=== PATIENT | female | born 1990 | race Caucasian/White ===

== ENCOUNTER 2023-01-15 12:47 | Outpatient (OUT) | payer MEDICAID, SELFPAY ==
--- NOTE | 2023-01-15 16:11 | MISC_ITS ---
CONSULTATION DATE: ??01/15/2023 HISTORY:? Patient comes in complaining of 4-5/10 pain in her neck area occurring bilaterally.? She describes this as a deep aching pain with a sharp component, increased with activity such as cervical extension.? She reports the pain radiates to her right shoulder at times.? Denies any change in bowel and bladder habits or new sensorimotor change in the upper extremities.? She also reports pain increases with lifting maneuvers, pushing/pulling maneuvers.? She feels most comfortable in the semi-recumbent position.? EXAMINATION:? Notable for patient having no clinical radiculopathy or myelopathy involving her upper extremities.? Patient did have significant pain with cervical facet loading maneuvers occurring bilaterally, worse on the right than the left side, at approximately C4-5, C5-6.? She had associated myofascial spasm of the splenius capitis muscle.? The spasm is markedly worse on the right than the left side.? She does have improvement on the left side, compared to the last visit. IMPRESSION:? Our impression is patient appears to have chronic pain secondary to cervical spondylosis with facet loading pain clinically, involving the C4-5 and C5-6 levels, occurring bilateral, worse on the right than the left side, and myofascial spasm of the cervical paravertebral muscles, namely the splenius capitis.? RECOMMENDATIONS:? I have recommended she increase the baclofen 10 mg pills, 1-2 pills b.i.d. as tolerated.? Physical therapy to address her myofascial spasm.? I have refilled the [place] #7 pills to last until her next visit, which will be in about two weeks? time.? It is not for daily use.? As part of providing excellent, safe, comprehensive care, the following was completed at our patient's visit: 1. A medication reconciliation and review to ensure accurate knowledge of current/active medications, including asking our patients to inform us about any efce-myf-mequadu medications or herbal remedies/nutritional supplements/alternative remedies. 2. A review to specifically ensure our patients have had annual screening for: elevated body mass index (BMI, see intake chart for exact total), tobacco use, screening for depression, and screening for unhealthy alcohol use.? When screening is concerning, patients are provided with education and the specific recommendation to discuss the concerning health issue and treatment options with their primary care provider. RIKA
== END 2023-01-15 12:48 ==
PROVIDERS: PCP Internal Medicine; Visit Provider Anesthesiology Pain Medicine
DX: M54.50 Low back pain, unspecified (principal); G89.29 Other chronic pain; M47.817 Spondylosis without myelopathy or radiculopathy, lumbosacral region; M62.838 Other muscle spasm
CPT/HCPCS: G0463

== ENCOUNTER 2023-01-21 15:45 | Outpatient (RCR) | payer MEDICAID, SELFPAY | END 2023-02-05 12:36 | disposition home or self-care (01) | LOC: PT 15:45 | PROVIDERS: PCP Internal Medicine; Visit Provider Anesthesiology Pain Medicine | DX: M54.2 Cervicalgia (principal); M62.838 Other muscle spasm | CPT/HCPCS: 97012; 97110; 97140; 97162 ==

== ENCOUNTER 2023-01-31 14:24 | Outpatient (OUT) | payer MEDICAID, SELFPAY ==
--- NOTE | 2023-01-31 16:14 | CONS_ITS ---
CONSULTATION DATE: ??01/31/2023 TO:? Stoney Giles M.D. CHIEF COMPLAINT:? Includes persistent neck pain on the right side, right shoulder pain. HISTORY:? She returns today complaining of 6/10 pain, sharp on the right side of her neck and shoulder area, primarily in her neck area; increased with activities such as stretching and lifting maneuvers, pushing/pulling maneuvers, cervical flexion/extension.? She feels most comfortable in the semi-recumbent position.? She denies any change in bowel and bladder habits or new sensorimotor changes in the upper extremities. EXAM:? Notable for patient having mild hypoesthesia along the right C5 dermatome along with the right deltoid.? No appreciable Spurling?s sign was noted.? IMPRESSION:? Our impression is patient appears to have chronic pain secondary to cervical neuritis along the right C5 level, with associated myofascial dysfunction of the cervical paravertebral muscles. RECOMMENDATIONS:? I have recommended she undergo a cervical MRI without contrast.? I have refilled her medications including [place] 5 mg pills to be taken one-half pill to one pill daily p.r.n.? I have given her 30 pills to last a month?s time.? I will see the patient back in the office in four weeks? time after she undergoes the imaging study. As part of providing excellent, safe, comprehensive care, the following was completed at our patient's visit: 1. A medication reconciliation and review to ensure accurate knowledge of current/active medications, including asking our patients to inform us about any bwol-zgh-nrqbjid medications or herbal remedies/nutritional supplements/alternative remedies. 2. A review to specifically ensure our patients have had annual screening for: elevated body mass index (BMI, see intake chart for exact total), tobacco use, screening for depression, and screening for unhealthy alcohol use.? When screening is concerning, patients are provided with education and the specific recommendation to discuss the concerning health issue and treatment options with their primary care provider.:? RIKA
== END 2023-01-31 14:25 | disposition home or self-care (01) ==
LOC: PM 14:24
PROVIDERS: PCP Internal Medicine; Visit Provider Anesthesiology Pain Medicine
DX: G89.29 Other chronic pain (principal); M54.12 Radiculopathy, cervical region
CPT/HCPCS: G0463

== ENCOUNTER 2023-02-14 12:24 | Outpatient (OUT) | payer MEDICAID, SELFPAY ==
[2023-02-14 13:03] LABS: Basophils Absolute Auto 0.1 10^3/uL (0.0-0.1); Basophils Percent Auto 1.2 % (0.2-2.0); Eosinophils Absolute Auto 0.1 10^3/uL (0.0-0.7); Eosinophils Percent Auto 1.6 % (0.9-7.0); Hematocrit 37.3 % (36.0-48.0); Immature Granulocytes Abs Auto 0.02 10^3/uL (0.00-0.03); Immature Granulocytes Pct Auto 0.5 % (0.0-0.5); Lymphocytes Absolute Auto 1.6 10^3/uL (1.2-3.8); Lymphocytes Percent Auto 36.8 % (20.5-60.0); Mean Corpuscular HGB Conc 34.9 g/dL (29.9-35.2); Mean Corpuscular Volume 88.8 fL (81.0-99.0); Mean Platelet Volume 11.5 fL (9.5-13.5); Monocytes Absolute Auto 0.4 10^3/uL (0.3-0.8); Monocytes Percent Auto 8.8 % (1.7-12.0); Neutrophils Absolute Auto 2.2 10^3/uL (1.4-6.5); Neutrophils Percent Auto 51.1 % (43.0-75.0); Platelet Count 182 10^3/uL (150-450); White Blood Count 4.3 10^3/uL (4.0-11.0)
[2023-02-14 13:40] LABS: Erythrocyte Sedimentation Rate <1 mm/hr (<=20)
[2023-02-14 13:50] LABS: Alanine Aminotransferase 22 U/L (14-59); Albumin Globulin Ratio 1.6; Albumin Level 4.1 g/dL (3.4-5.0); Alkaline Phosphatase 51 U/L (46-116); Anion Gap 10.3; Aspartate Amino Transferase 15 U/L (15-37); BUN Creatinine Ratio 15.6; Bilirubin Total 0.5 mg/dL (0.2-1.0); Calcium 8.5 mg/dL (8.5-10.1); Carbon Dioxide 27.5 mmol/L (21.0-32.0); Chloride 107 mmol/L (98-107); Estimated GFR (African America >60 (>=60); Estimated GFR (Non-African Ame >60 (>=60); Globulin 2.5 g/dL; Glucose 72 mg/dL (74-106); Potassium 3.8 mmol/L (3.5-5.1); Sodium 141 mmol/L (136-145); Total Protein 6.6 g/dL (6.4-8.2)
[2023-02-14 13:51] LABS: C Reactive Protein <0.2 mg/dL (<=1.0)
== END 2023-02-14 12:25 | disposition home or self-care (01) ==
LOC: LAB 12:25
PROVIDERS: PCP Internal Medicine; Visit Provider Internal Medicine
DX: K50.90 Crohn's disease, unspecified, without complications (principal)
CPT/HCPCS: 36415; 80053; 85025; 85652; 86140

== ENCOUNTER 2023-02-14 21:22 | Emergency (ER) | payer MEDICAID, SELFPAY ==
[2023-02-14 21:28] VITALS: BP 120/82; PULSE 68; RESP 16; TEMP 36.9; O2SAT 98; BMI 23.8
--- NOTE | 2023-02-14 21:39 | CT_ITS ---
[address] [address] Patient Name: PAT LICONA MRN: [id number] date: 1990 Sex: F Assigned Patient Location: ER Current Patient Location: ER Accession/Order Number: [id number] Exam Date: 02/14/2023 22:29 Report Date: 02/14/2023 23:00 At the request of: NEDRA BONILLA Procedure: CT cervical spine wo con CT cervical spine wo con INDICATION: 32 years old; Female . CLINICAL HISTORY: pain neck pain for 1.5 weeks. No history of injury. Right arm paresthesia. History of previous neck issues . TECHNIQUE: CT imaging of the cervical spine was performed. IV contrast: None. Dose reduction techniques were achieved by using automated exposure control and/or adjustment of mA and/or kV according to patient size and/or use of iterative reconstruction technique. COMPARISON: Cervical MRI dated 04/05/2022. Cervical x-ray dated 02/08/2022. FINDINGS: POSTOPERATIVE CHANGES: None. ALIGNMENT: There is nonspecific straightening and mild reversal the normal cervical curve. Mild torticollis is noted concave to the left. COMPRESSION FRACTURES: No fracture or vertebral body collapse is seen. No bone displacement is seen. No asymmetric widening of the facets is seen. PREVERTEBRAL SOFT TISSUES: Normal. CRANIOCERVICAL JUNCTION: There is a normal relationship of the occipital condyles, lateral masses of C1, and articular surfaces of C2. The base of the dens and body of C2 are intact. POSTERIOR FOSSA: Cerebellar tonsils are positioned at the level the foramen magnum. This was previously described. Disc levels: C2-C3: No disc herniation. No spinal canal or foraminal narrowing. C3-C4: No disc herniation. No spinal canal or foraminal narrowing. C4-C5: Anterior osteophyte formation. No focal disc herniation or bulging. Central canal and neural foramina patent. C5-C6: Disc space narrowing, disc bulging, endplate osteophyte formation, and uncovertebral joint degeneration. Bulky bridging anterior osteophytes. Mild central canal stenosis. Neural foramina patent. C6-C7: Disc space narrowing, disc bulging, endplate osteophyte formation, with endplate sclerosis and bulky bridging anterior osteophytes. Central canal is patent. Neural foramina patent. No focal disc herniation. C7-T1: No disc herniation. No spinal canal or foraminal narrowing. UPPER THORACIC SPINE: No disc herniation. No spinal canal or foraminal narrowing. OTHER: There is inhomogeneous appearance of the thyroid gland with tiny areas of low-density. Recommend nonemergent thyroid ultrasound. IMPRESSION: 1. No acute abnormality. No fracture or vertebral body collapse. No focal disc herniation. 2. Cervical spondylosis worse at C5-C6 and C6-C7 which appears stable as compared to the prior study. 3. Inhomogeneous appearance of the thyroid gland. Consider nonemergent thyroid ultrasound. Electronically authenticated by: DENIS WINTERS Date: 02/14/2023 23:00
--- NOTE | 2023-02-14 21:40 | ED.GENADUL1 ---
Documented by User: Heaven Rigoberto 02/15/23 13:25 HPI - General Adult General Chief complaint: Neck Pain/Injury Stated complaint: NECK PAIN Time Seen by Provider: 02/14/23 21:33 Source: patient Mode of arrival: walk-in Limitations: no limitations History of Present Illness HPI narrative: There is 32-year-old female presents her chief complaint of exacerbation of chronic neck pain. She states she's been in physical therapy as well as pain management with injections. Patient states she has trying to get a perforated MRI. She is here for pain with no new injury or trauma. He has baclofen at home which did not take it todayAnd patient shows no signs of nuchal rigidity. She has full range of motion. Related Data Home Medications Medication Instructions Recorded Confirmed Lactobacillus acidoph-L.bulgaricus 1 tab PO DAILY 02/14/23 02/14/23 1 million cell tablet baclofen 10 mg tablet 10 mg PO Q12H 02/14/23 02/14/23 cholecalciferol (vitamin D3) 25 2,000 unit PO BID 02/14/23 02/14/23 mcg (1,000 unit) tablet hydrocodone 5 mg-acetaminophen 325 1 tab PO .daily. 02/14/23 02/14/23 mg tablet hyoscyamine sulfate 0.125 mg tablet 0.125 mg PO Q6H PRN dyspepsia 02/14/23 02/14/23 melatonin 10 mg capsule 10 mg PO DAILY 02/14/23 02/14/23 multivitamin with folic acid 400 1 tab PO DAILY 02/14/23 02/14/23 mcg tablet (Daily-Sharad (with folic acid)) omega 2-gtr-rbt-fish oil 300 1 cap PO DAILY 02/14/23 02/14/23 mg-1,000 mg capsule (Fish Oil) vitamin B complex 1 cap PO DAILY 02/14/23 02/14/23 Allergies Allergy/AdvReac Type Severity Reaction Status Date / Time latex AdvReac Rash Uncoded 02/14/23 21:39 Review of Systems ROS Narrative All Systems are negative except as noted/marked.All systems reviewed and otherwise negative [facility] PFS Medical History (Updated 02/14/23 @ 21:46 by Selena Lea) Surgical History (Updated 02/14/23 @ 21:46 by Selena Lea) Social History Smoking status: Former smoker Exam Narrative Exam Narrative: Nurses note and vital signs reviewed and patient is not hypoxic. General: The patient appears well and in no apparent distress. Patient is resting comfortably on cart. Skin: Warm, dry, no pallor noted. There is no rash noted. Head: Normocephalic, atraumatic neck : No midline tenderness full range of motion no nuchal rigidity Eye: Normal conjunctiva, no drainage, EOMI. PERRL Ears, Nose, Mouth, and Throat: oral mucosa is moist. Nares patent. Mouth without vesicles. Ear canals patent. Tm's without Erythema Cardiovascular: Regular Rate and Rhythm Musculoskeletal: The patient has no evidence of calf tenderness, no pitting edema, symmetrical pulses noted bilaterally Neurological: A&O x4, normal speech Psychiatric: Cooperative Constitutional Vital Signs - 24 hr 02/14/23 21:28 02/14/23 23:22 Temperature 98.4 F Pulse Rate [Monitor] 68 56 L Respiratory Rate 16 16 Blood Pressure [Right Arm] 120/82 H 111/81 H Pulse Oximetry 98 100 Oxygen Delivery Method Room Air Course Vital Signs Vital signs: Vital Signs Temperature 98.4 F 02/14/23 21:28 Pulse Rate 68 02/14/23 21:28 Respiratory Rate 16 02/14/23 21:28 Blood Pressure 120/82 H 02/14/23 21:28 Pulse Oximetry 98 02/14/23 21:28 Temperature 98.4 F 02/14/23 21:28 Pulse Rate 56 L 02/14/23 23:22 Respiratory Rate 16 02/14/23 23:22 Blood Pressure 111/81 H 02/14/23 23:22 Pulse Oximetry 100 02/14/23 23:22 Oxygen Delivery Method Room Air 02/14/23 23:22 Discharge Plan Discharge Chief Complaint: Neck Pain/Injury Clinical Impression: Strain of neck muscle Patient Disposition: Home, Self-Care Time of Disposition Decision: 23:15 Condition: Good Mode of Transportation: Private Vehicle Prescriptions / Home Meds: No Action baclofen 10 mg tablet 10 mg PO Q12H Rx Instructions: 1-2 tablets cholecalciferol (vitamin D3) 25 mcg (1,000 unit) tablet 2,000 unit PO BID hyoscyamine sulfate 0.125 mg tablet 0.125 mg PO Q6H PRN (Reason: dyspepsia) Lactobacillus acidoph-L.bulgar 1 million cell tablet 1 tab PO DAILY melatonin 10 mg capsule 10 mg PO DAILY multivitamin with folic acid [Daily-Sharad (with folic acid)] 400 mcg tablet 1 tab PO DAILY omega 9-aac-hmq-fish oil [Fish Oil] 300-1,000 mg capsule 1 cap PO DAILY vitamin B complex Capsule 1 cap PO DAILY hydrocodone-acetaminophen 5-325 mg tablet 1 tab PO .daily. Instructions: Cervical Strain (ED) Stand Alone Forms: Portal Instructions Referrals: CHIDI PARKER [Primary Care Provider] - 1 week Discharge Date/Time: 02/14/23 23:25 Documented by User: Raheem Gerardo MD 02/14/23 23:15 HPI - General Adult General Chief complaint: Neck Pain/Injury Stated complaint: NECK PAIN Time Seen by Provider: 02/14/23 21:33 Related Data Home Medications Medication Instructions Recorded Confirmed Lactobacillus acidoph-L.bulgaricus 1 tab PO DAILY 02/14/23 02/14/23 1 million cell tablet baclofen 10 mg tablet 10 mg PO Q12H 02/14/23 02/14/23 cholecalciferol (vitamin D3) 25 2,000 unit PO BID 02/14/23 02/14/23 mcg (1,000 unit) tablet hydrocodone 5 mg-acetaminophen 325 1 tab PO .daily. 02/14/23 02/14/23 mg tablet hyoscyamine sulfate 0.125 mg tablet 0.125 mg PO Q6H PRN dyspepsia 02/14/23 02/14/23 melatonin 10 mg capsule 10 mg PO DAILY 02/14/23 02/14/23 multivitamin with folic acid 400 1 tab PO DAILY 02/14/23 02/14/23 mcg tablet (Daily-Sharad (with folic acid)) omega 0-nuy-hfi-fish oil 300 1 cap PO DAILY 02/14/23 02/14/23 mg-1,000 mg capsule (Fish Oil) vitamin B complex 1 cap PO DAILY 02/14/23 02/14/23 Allergies Allergy/AdvReac Type Severity Reaction Status Date / Time latex AdvReac Rash Uncoded 02/14/23 21:39 PFSH PFSH Medical History (Updated 02/14/23 @ 21:46 by Selena Lea) Surgical History (Updated 02/14/23 @ 21:46 by Selena Lea) Social History Smoking status: Former smoker Exam Constitutional Vital Signs - 24 hr 02/14/23 21:28 02/14/23 23:22 Temperature 98.4 F Pulse Rate [Monitor] 68 56 L Respiratory Rate 16 16 Blood Pressure [Right Arm] 120/82 H 111/81 H Pulse Oximetry 98 100 Oxygen Delivery Method Room Air Course Vital Signs Vital signs: Vital Signs Temperature 98.4 F 02/14/23 21:28 Pulse Rate 68 02/14/23 21:28 Respiratory Rate 16 02/14/23 21:28 Blood Pressure 120/82 H 02/14/23 21:28 Pulse Oximetry 98 02/14/23 21:28 Temperature 98.4 F 02/14/23 21:28 Pulse Rate 56 L 02/14/23 23:22 Respiratory Rate 16 02/14/23 23:22 Blood Pressure 111/81 H 02/14/23 23:22 Pulse Oximetry 100 02/14/23 23:22 Oxygen Delivery Method Room Air 02/14/23 23:22 Medical Decision Making MDM Narrative Medical decision making narrative: patient presents with neck pain. similar neck pain in the past . Strain injury. CT ordered at change of shift and CT-Cspine without acute changes. Patient informed of the findings and discharged home to follow up with her doctor Discharge Plan Discharge Chief Complaint: Neck Pain/Injury Clinical Impression: Strain of neck muscle Patient Disposition: Home, Self-Care Time of Disposition Decision: 23:15 Condition: Good Mode of Transportation: Private Vehicle Prescriptions / Home Meds: No Action baclofen 10 mg tablet 10 mg PO Q12H Rx Instructions: 1-2 tablets cholecalciferol (vitamin D3) 25 mcg (1,000 unit) tablet 2,000 unit PO BID hyoscyamine sulfate 0.125 mg tablet 0.125 mg PO Q6H PRN (Reason: dyspepsia) Lactobacillus acidoph-L.bulgar 1 million cell tablet 1 tab PO DAILY melatonin 10 mg capsule 10 mg PO DAILY multivitamin with folic acid [Daily-Sharad (with folic acid)] 400 mcg tablet 1 tab PO DAILY omega 1-ahk-oes-fish oil [Fish Oil] 300-1,000 mg capsule 1 cap PO DAILY vitamin B complex Capsule 1 cap PO DAILY hydrocodone-acetaminophen 5-325 mg tablet 1 tab PO .daily. Instructions: Cervical Strain (ED) Stand Alone Forms: Portal Instructions Referrals: CHIDI PARKER [Primary Care Provider] - 1 week Discharge Date/Time: 02/14/23 23:25
[2023-02-14] MEDS: KETOROLAC TROMETHAMINE 60 MG/2 ML VIAL IM (22:23)
[2023-02-14 23:22] VITALS: BP 111/81; PULSE 56; RESP 16; O2SAT 100
== END 2023-02-14 23:25 | disposition home or self-care (01) ==
PROVIDERS: Emergency Provider Internal Medicine; PCP Internal Medicine
DX: S16.1XXA Strain of muscle, fascia and tendon at neck level, initial encounter (principal); X58.XXXA Exposure to other specified factors, initial encounter; Z79.899 Other long term (current) drug therapy; Z87.891 Personal history of nicotine dependence; K50.90 Crohn's disease, unspecified, without complications
CPT/HCPCS: 36415; 72125; 80053; 85025; 85652; 86140; 96372; 99284

== ENCOUNTER 2023-03-15 12:38 | Outpatient (OUT) | payer MEDICAID, SELFPAY ==
--- NOTE | 2023-03-15 12:48 | MR_ITS ---
[address] [address] Patient Name: PAT LICONA MRN: [id number] date: 1990 Sex: F Assigned Patient Location: MRI Current Patient Location: Accession/Order Number: [id number] Exam Date: 03/15/2023 13:00 Report Date: 03/16/2023 07:40 At the request of: CINTIA SEBASTIAN Procedure: MR cervical spine wo con EXAM: MRI of the cervical an thoracic spine without IV contrast. REASON FOR EXAM: Cervical Neuritis COMPARISON: CT scan dated 02/14/2023 FINDINGS: C-SPINE: No cervical spine fractures, acute malalignment or acute abnormal marrow signal. No spinal canal mass, hematoma or fluid collection. No abnormal cord signal. Mild C3-C4 posterior disc bulge. Small C4-C5 posterior disc protrusion. C5-C6 and C6-C7 posterior disc protrusion with mild associated disc space narrowing. Mild C3-C4, C4-C5 and C5-C6 spinal canal stenoses. No other substantial spinal canal stenoses. Mild right C3-C4 neural foraminal stenosis. Mild bilateral C5-C6 neural foraminal stenoses. Mild left C6-C7 neural foraminal stenosis. No other substantial neural foraminal stenoses. T-SPINE: No thoracic spine fractures, acute malalignment or acute abnormal marrow signal. No spinal canal mass, hematoma or fluid collection. No abnormal cord signal. Mild thoracic scoliosis. No other thoracic spine malalignment. Preserved intervertebral disc heights. No posterior disc protrusions. No spinal canal or neural foraminal stenoses. Remainder unremarkable. MR/MR cervical spine wo con IMPRESSION: 1. Mild C3-C4, C4-C5 and C5-C6 spinal canal stenoses. 2. Mild right C3-C4, bilateral C5-C6 and left C6-C7 neural foraminal stenoses. 3. No thoracic spinal canal or neural foraminal stenoses. 4. Mild thoracic scoliosis. Electronically authenticated by: EUGENE MEDINA Date: 03/16/2023 07:40
== END 2023-03-15 12:39 | disposition home or self-care (01) ==
LOC: MRI 12:38
PROVIDERS: PCP Internal Medicine; Visit Provider Anesthesiology Pain Medicine
DX: M54.12 Radiculopathy, cervical region (principal); M48.02 Spinal stenosis, cervical region; M99.71 Connective tissue and disc stenosis of intervertebral foramina of cervical region; M41.9 Scoliosis, unspecified
CPT/HCPCS: 72141

== ENCOUNTER 2023-03-15 12:59 | Outpatient (OUT) | payer MEDICAID, SELFPAY ==
--- NOTE | 2023-03-15 13:04 | MR_ITS ---
[address] [address] Patient Name: PAT LICONA MRN: [id number] date: 1990 Sex: F Assigned Patient Location: MRI Current Patient Location: Accession/Order Number: [id number] Exam Date: 03/15/2023 13:05 Report Date: 03/16/2023 07:40 At the request of: HUONG SMITH Procedure: MR thoracic spine wo con EXAM: MRI of the cervical an thoracic spine without IV contrast. REASON FOR EXAM: Cervical Neuritis COMPARISON: CT scan dated 02/14/2023 FINDINGS: C-SPINE: No cervical spine fractures, acute malalignment or acute abnormal marrow signal. No spinal canal mass, hematoma or fluid collection. No abnormal cord signal. Mild C3-C4 posterior disc bulge. Small C4-C5 posterior disc protrusion. C5-C6 and C6-C7 posterior disc protrusion with mild associated disc space narrowing. Mild C3-C4, C4-C5 and C5-C6 spinal canal stenoses. No other substantial spinal canal stenoses. Mild right C3-C4 neural foraminal stenosis. Mild bilateral C5-C6 neural foraminal stenoses. Mild left C6-C7 neural foraminal stenosis. No other substantial neural foraminal stenoses. T-SPINE: No thoracic spine fractures, acute malalignment or acute abnormal marrow signal. No spinal canal mass, hematoma or fluid collection. No abnormal cord signal. Mild thoracic scoliosis. No other thoracic spine malalignment. Preserved intervertebral disc heights. No posterior disc protrusions. No spinal canal or neural foraminal stenoses. Remainder unremarkable. MR/MR thoracic spine wo con IMPRESSION: 1. Mild C3-C4, C4-C5 and C5-C6 spinal canal stenoses. 2. Mild right C3-C4, bilateral C5-C6 and left C6-C7 neural foraminal stenoses. 3. No thoracic spinal canal or neural foraminal stenoses. 4. Mild thoracic scoliosis. Electronically authenticated by: EUGENE MEDINA Date: 03/16/2023 07:40
== END 2023-03-15 13:00 | disposition home or self-care (01) ==
LOC: MRI 12:59
PROVIDERS: PCP Internal Medicine; Visit Provider Nurse Practitioner Family
DX: M48.03 Spinal stenosis, cervicothoracic region (principal); M51.34 Other intervertebral disc degeneration, thoracic region; M41.84 Other forms of scoliosis, thoracic region
CPT/HCPCS: 72146

== ENCOUNTER 2023-03-21 14:29 | Outpatient (OUT) | payer MEDICAID, SELFPAY ==
--- NOTE | 2023-03-21 | CONS_ITS ---
CONSULTATION DATE: ??03/21/2023 TO:? Stoney Giles M.D. HISTORY:? Patient returns today to review her cervical MRI results.? She still complains of 6-7/10 pain in her neck and shoulder area, mainly her neck area, and shoulder pain just on the right side.? She describes it as a deep, aching, sharp pain with increased activities such as cervical extension, flexion.? Lifting maneuvers, pushing/pulling maneuvers are also quite painful.? She feels most comfortable in the semi-recumbent position.? Denies any change in bowel and bladder habits or new sensorimotor changes in the upper extremities. EXAM:? Her examination is notable for patient having dysesthesia and hyperesthesia overlying the distribution of the right C7 dermatome.? MRI:? Her MRI did reveal mild spinal stenosis at multiple levels at C4, 5 and 6.? RECOMMENDATIONS:? At this point, I recommend that she consider proceeding with cervical epidural injection under fluoroscopic guidance.? I have placed her on Zonegran 50 mg at h.s.? I will consult with Dr. Pereyra for possible neurosurgical consultation.? I have gone over the details of the procedure with the patient.? All questions answered.? She agrees to proceed with the outlined plan. As part of providing excellent, safe, comprehensive care, the following was completed at our patient's visit: 1. A medication reconciliation and review to ensure accurate knowledge of current/active medications, including asking our patients to inform us about any nucb-cky-pjetnpe medications or herbal remedies/nutritional supplements/alternative remedies. 2. A review to specifically ensure our patients have had annual screening for: elevated body mass index (BMI, see intake chart for exact total), tobacco use, screening for depression, and screening for unhealthy alcohol use.? When screening is concerning, patients are provided with education and the specific recommendation to discuss the concerning health issue and treatment options with their primary care provider. RIKA
== END 2023-03-21 14:30 | disposition home or self-care (01) ==
LOC: PM 14:29
PROVIDERS: PCP Internal Medicine; Visit Provider Anesthesiology Pain Medicine
DX: M54.2 Cervicalgia (principal)
CPT/HCPCS: G0463

== ENCOUNTER 2023-04-30 08:40 | Day surgery (SDC) | payer MEDICAID, SELFPAY ==
[2023-04-30 09:06] LABS: HCG Qualitative NEGATIVE (NEGATIVE)
[2023-04-30 09:42] VITALS: BP 113/74; PULSE 74; RESP 16; TEMP 36.4; O2SAT 100
[2023-04-30] MEDS: 0.9 % SODIUM CHLORIDE 10 ML SYRINGE - SALINE FLUSH 2 ML INJ (10:46)
[2023-04-30] MEDS: DEXAMETHASONE SODIUM PHOSPHATE 10 MG/ML VIAL INJ (10:47)
[2023-04-30] MEDS: IOHEXOL 240 MG/ML - 10 ML VIAL INJ (10:47)
[2023-04-30] MEDS: BUPIVACAINE HCL 0.25% PF 25 MG/10 ML VIAL 4 ML INJ (10:47)
[2023-04-30] MEDS: LIDOCAINE HCL 2% PF 100 MG/5 ML VIAL INJ (10:48)
[2023-04-30 11:12] VITALS: BP 101/62; BP 113/69; PULSE 57; PULSE 61; RESP 20; O2SAT 95; O2SAT 96
--- NOTE | 2023-04-30 11:23 | P.ON_ITS ---
Date of procedure: 04/30/23 Pre-op diagnosis: Cervical Stenosis Post-op diagnosis: same as pre-op Procedure: Cervical C7/T1 Epidural Steroid Injection Under fluoroscopic guidance Immediate complications none Solution used for injection: Marcaine 0.25% 2mL, 2cc Normal saline, Depo-Medrol 80mg Omnipaque 3 mL Anesthesia local 2% lidocaine up to 4ml Timeout process compliant After informed consent obtained. Patient brought to the procedure room placed in the prone position. Skin overlying the area was prepped and draped in a sterile fashion using betadine. 25 gauge needle used to raise a skin wheel with local anesthetic over the target area identified under fluoroscopy. A 17 gauge Touhy needle Was inserted over the anesthetized area and directed towards the inter- space under fluoroscopic guidance. Epidural space was identified with loss of resistance technique to air. Needle Tip placement confirmed with injection of contrast solution. Steroid solution was then injected. Anesthesia: Local Surgeon: Ciara Emmanuel Condition: stable
== END 2023-04-30 10:53 | disposition home or self-care (01) ==
LOC: SURGOUT 08:41
PROVIDERS: PCP Internal Medicine; Visit Provider Anesthesiology Pain Medicine
DX: M48.02 Spinal stenosis, cervical region (principal)
CPT/HCPCS: 36415; 62321; 84703; J1100; Q9966

== ENCOUNTER 2023-05-21 09:56 | Outpatient (OUT) | payer MEDICAID, SELFPAY ==
[2023-05-21 10:31] LABS: Basophils Percent Auto 0.8 % (0.2-2.0); Eosinophils Absolute Auto 0.1 10^3/uL (0.0-0.7); Eosinophils Percent Auto 1.4 % (0.9-7.0); Hematocrit 39.1 % (36.0-48.0); Immature Granulocytes Abs Auto 0.01 10^3/uL (0.00-0.03); Immature Granulocytes Pct Auto 0.2 % (0.0-0.5); Lymphocytes Absolute Auto 1.7 10^3/uL (1.2-3.8); Lymphocytes Percent Auto 32.8 % (20.5-60.0); Mean Corpuscular HGB Conc 35.8 g/dL (29.9-35.2); Mean Corpuscular Volume 86.7 fL (81.0-99.0); Mean Platelet Volume 10.7 fL (9.5-13.5); Monocytes Absolute Auto 0.4 10^3/uL (0.3-0.8); Monocytes Percent Auto 8.3 % (1.7-12.0); Neutrophils Absolute Auto 2.9 10^3/uL (1.4-6.5); Neutrophils Percent Auto 56.5 % (43.0-75.0); Platelet Count 218 10^3/uL (150-450); Red Blood Count 4.51 10^6/uL (4.20-5.40); Red Cell Distribution Width 11.4 % (11.0-15.0); White Blood Count 5.2 10^3/uL (4.0-11.0)
[2023-05-21 11:30] LABS: Estimated Average Glucose 85 mg/dL; Glycohemoglobin A1C 4.6 % (4.5-6.2)
[2023-05-21 12:02] LABS: HCG Quantitative <1 mIU/mL; Thyroid Stimulating Hormone 0.843 uIU/mL (0.358-3.740)
[2023-05-22 04:07] LABS: DHEA-Sulfate 83.6 ug/dL (84.8-378.0); Luteinizing Hormone(LH) 1.2 mIU/mL (.)
[2023-05-22 05:07] LABS: FSH 1.7 mIU/mL (.)
[2023-05-23 17:07] LABS: DHEA, Serum 112 ng/dL (31-701)
== END 2023-05-21 09:57 | disposition home or self-care (01) ==
PROVIDERS: PCP Internal Medicine; Visit Provider Obstetrics & Gynecology
DX: E34.9 Endocrine disorder, unspecified (principal); N92.0 Excessive and frequent menstruation with regular cycle; N94.6 Dysmenorrhea, unspecified
CPT/HCPCS: 36415; 82626; 82627; 83001; 83002; 83036; 84439; 84443; 84702; 85025

== ENCOUNTER 2023-05-22 12:35 | Outpatient (OUT) | payer MEDICAID, SELFPAY ==
--- NOTE | 2023-05-22 12:50 | PM.CN ---
Consult Note: HPI Data of Consult Patient: known to practice within the last 3 years Requesting Physician: Lisandra Alcantar NP Primary Care Provider: CHIDI PARKER Consult Narrative Reason for consult: F/u Narrative: Alejandra smith pleasant 32 year old female presents for evaluation and management of chronic neck pain. Recently underwent Cervical C7/T1 Epidural Steroid Injection with 50% pain improvement Today rating pain 2/10. Continues to have increase in pain at night. Radicular symptoms improved after JUAN. cc:: CC: Lisandra Alcantar NP Review of Systems ROS Status of ROS 10 or more systems reviewed and unremarkable except as noted in history and below Musculoskeletal Reports: neck pain PFSH PFSH Medical History Crohn's disease ?K50.90 - Crohn's disease, unspecified, without complications (ICD-10) Neck ache ?M54.2 - Cervicalgia (ICD-10) Spondylosis without myelopathy or radiculopathy, cervical region ?M47.812 - Spondylosis without myelopathy or radiculopathy, cervical region (ICD-10) Surgical History History of tonsillectomy ?Z90.89 - Acquired absence of other organs (ICD-10) Social History Smoking status: Former smoker Meds Home Medications and Allergies Home Medications Medication Instructions Recorded Confirmed Type hydrocodone 5 mg-acetaminophen 325 1 tab PO .daily. 02/14/23 04/30/23 History mg tablet hydrocodone 5 mg-acetaminophen 325 1 tab PO DAILY PRN pain #30 tabs 03/19/23 04/30/23 Rx mg tablet zonisamide 50 mg capsule 50 mg PO DAILY 04/30/23 04/30/23 History hydrocodone 5 mg-acetaminophen 325 1 tab PO DAILY PRN pain #30 tabs 05/01/23 Rx mg tablet Allergies Allergy/AdvReac Type Severity Reaction Status Date / Time adhesive Allergy Mild Blister Verified 04/30/23 09:50 latex AdvReac Rash Uncoded 02/14/23 21:39 Exam Constitutional Documenting provider has reviewed patient's vital signs: yes Common normals: no apparent distress, oriented x3, healthy appearing, alert and well nourished General appearance: cooperative HENMT Common normals: normocephalic, hearing grossly normal bilaterally and moist oral mucous membranes Head and scalp: normocephalic Eye Common normals: PERRL Pupil: PERRL Neck & C-Spine Common normals: full ROM General: normal visual inspection Cervical spine: pain with cervical ROM, paracervical muscle tenderness and paracervical muscle spasm Chest Common normals: inspection of chest normal Respiratory Common normals: normal respiratory effort, no retractions and no use of accessory muscles Neuro Common normals: oriented x3, CN's II-XII intact bilaterally, moves all extremities, no focal motor deficits, no sensory deficits noted and deep tendon reflexes 2+ bilaterally Sensorium/orientation: alert Motor exam: strength 5/5 throughout and no movement abnormalities noted Other: no numbness and tingling in BUE Psych Common normals: mental status grossly normal, thought process normal, cooperative, affect normal, speech normal and activity/motor behavior normal Speech: normal speech Thought process: normal thought process Results Additional Findings Additional findings: I have checked an [facility] report on this patient today and there are no aberrancies noted in the prescribing history.?? A drug screen was completed and reviewed within the last year, and if there has not been a drug screen completed we ordered one today to monitor higher risk, state monitored pain medication use. As part of providing excellent, safe, comprehensive care, the following was completed at our patient's visit: 1. A medication reconciliation and review to ensure accurate knowledge of current/active medications, including asking our patients to inform us about any fyns-iri-dkshvar medications or herbal remedies/nutritional supplements/alternative remedies. 2. A review to specifically ensure our patients have had annual screening for: elevated body mass index (BMI), tobacco use, screening for depression, and screening for unhealthy alcohol use. When screening is concerning, patients are provided with education and the specific recommendation to discuss the concerning health issue and treatment options with their primary care provider. Assessment and Plan Assessment and Plan (1) Spondylosis without myelopathy or radiculopathy, cervical region: (2) Myalgia: Plan cervical JUAN providing >50% pain relief and functional improvement ongoing increase zonegran to 100mg, will call if experiencing side effects or issues with increase continue norco 5-325mg QD PRN moderate to severe pain f/u 3 months
== END 2023-05-22 12:36 | disposition home or self-care (01) ==
LOC: PM 12:36
PROVIDERS: PCP Internal Medicine; Visit Provider Nurse Practitioner
DX: M47.812 Spondylosis without myelopathy or radiculopathy, cervical region (principal); M79.10 Myalgia, unspecified site
CPT/HCPCS: G0463

== ENCOUNTER 2023-07-22 10:13 | Outpatient (OUT) | payer MEDICAID, SELFPAY ==
--- NOTE | 2023-07-22 10:14 | US_ITS ---
[facility] [id number] Patient Name: PAT LICONA MRN: [id number] date: 1990 Sex: F Assigned Patient Location: [place] Current Patient Location: [place] Accession/Order Number: [id number] Exam Date: 07/22/2023 10:14 Report Date: 07/22/2023 13:35 At the request of: JAVED LEVIN Procedure: US pelvis w/ transvaginal EXAMINATION: US pelvis w/ transvaginal HISTORY: DYSMENORRHAGIA COMPARISON: No relevant comparison available. FINDINGS: The uterus is anteverted, retroflexed. The uterus is normal in size, contour and myometrial echotexture measuring 8.9 x 4.2 x 5.9 cm. No focal myometrial mass. The endometrium measures 5 mm, normal. The right ovary is normal measuring 3 6 cm. Normal color and Doppler flow. Scattered subcentimeter follicles. 1.3 cm septated cyst. The left ovary is normal measuring 3.2 x 1.6 x 3.0 cm. Normal color Doppler flow. Scattered subcentimeter follicles Small amount of free pelvic fluid likely physiologic. US/US pelvis w/ transvaginal IMPRESSION: 1.3 cm septated right ovarian cyst Electronically authenticated by: ISABEL CHAVEZ Date: 07/22/2023 13:35
== END 2023-07-22 10:14 | disposition home or self-care (01) ==
LOC: US 10:13
PROVIDERS: PCP Internal Medicine; Visit Provider Obstetrics & Gynecology
DX: E34.9 Endocrine disorder, unspecified (principal); N94.6 Dysmenorrhea, unspecified; N92.0 Excessive and frequent menstruation with regular cycle; N83.291 Other ovarian cyst, right side
CPT/HCPCS: 76830; 76856

== ENCOUNTER 2023-08-21 12:41 | Outpatient (OUT) | payer MEDICAID, SELFPAY ==
--- OUTSIDE RECORDS SUMMARY | 2023-08-21 12:44 | XMS_ITS | CCD ---
Author Name Unknown Address [address] [place] [address] Organization [facility] Care Team Providers Care Road Sign Installer Name Role Phone Piter Maharaj Unavailable LUZ Giles Primary Care Provider MD Piter Maharaj Attending Provider AIDAN Winslow Attending Provider LUZ Giles Primary Care Provider AIDAN Winslow Attending Provider [phone] JOSE Chauhan Attending Provider [phone] Gilbert Chauhan Admitting Unavailable Gilbert Chauhan Attending Unavailable LUZ Giles Primary Care Provider DR STONEY GILES Primary Care Unavailable LAKSHMIPATHY ., NARAILEENATH Attending Ileana vailable LAKSHMIPATHY ., NARENDRANATH Admitting Ileana vailable TORREY .RAE Consulting UnavailGuanakito Wilde, DR WESLEY Attending Unavailable MIGUEL ., DR WESLEY Admitting Unavailable ELENA, DR MURILLO Primary Care Unavailable VANNA GARLAND Consulting Unavailable DR DEANN THOMASON Consulting Unavailable ISABEL .GABRIELA Attending Unavailable ISABEL ., GABRIELA Admitting Unavailable ELENA, DR MURILLO Primary Care Unavailable ISABEL ., GABRIELA Consulting Unavailable KIKA ., DR ALEENA Bustamante Consulting Unavailable DR STONEY GILES Primary Care Unavailable KIKA ., DR ALEENA Bustamante Attending Unavailable KIKA ., DR ALEENA Bustamante Admitting Unavailable LAKSHMIPATHY ., CINTIA Consulting Ileana vailable DR STONEY GILES Primary Care Unavailable LAKSHMIPATHY ., NARENDRANATH Attending Ileana vailable HALKER ., FRANCOIS Admitting Unavailable ARBOLEDA ., YESSI Consulting Unavailable ELENA, DR MURILLO Primary Care Unavailable ANAND ., DR ALEENA Bustamante Attending Unavailable ANAND ., DR ALEENA Bustamante Admitting Unavailable NICKO, DR Jamel Alaniz Consulting Unavailable GILES, DR MURILLO Primary Care Unavailable NICKO, DR Jamel Alaniz Attending Unavailable NICKO, DR Jamel Alaniz Admitting Unavailable GILES, DR MURILLO Consulting Unavailable GILES, DR MURILLO Primary Care Unavailable GILES, DR MURILLO Attending Unavailable GILES, DR MURILLO Admitting Unavailable WEST, DR ISABEL Olvera Consulting Unavailable GILES, DR MURILLO Consulting Unavailable GILES, DR MURILLO Primary Care Unavailable GILES, DR MURILLO Attending Unavailable GILES, DR MURILLO Admitting Unavailable ZIEBER, DR DEANN Alaniz Consulting Unavailable GILES, DR MURILLO Consulting Unavailable GILES, DR MURILLO Primary Care Unavailable GILES, DR MURILLO Attending Unavailable GILES, DR MURILLO Admitting Unavailable NICKO, DR Jamel Alaniz Consulting Unavailable GILES, DR MURILLO Primary Care Unavailable NICKO, DR Jamel Alaniz Attending Unavailable NICKO, DR Jamel Alaniz Admitting Unavailable ANAND ., DR ALEENA Bustamante Consulting Unavailable GILES, DR MURILLO Primary Care Unavailable ANAND ., DR ALEENA Bustamante Attending Unavailable ANAND ., DR ALEENA Bustamante Admitting Unavailable LAKSHMIPATHY ., CINTIA Consulting Ileana vailable ELENA, DR MURILLO Primary Care Unavailable LAKSHMIPATHY ., CINTIA Attending Ileana vailable LAKSHMIPATHY ., CINTIA Admitting Ileana vailable STONEY ASKEW Consulting Unavailable ELENA, DR MURILLO Primary Care Unavailable LAKSHMIPATHY ., CINTIA Attending Ileana vailable LAKSHMIPATHY ., LIANAENDHESHAM Admitting Ileana vailable ISABELLA VAUGHN Consulting Unavailable LAKSHMIPATHY ., CINTIA Consulting Ileana vailable ISABELLA VAUGHN Consulting Unavailable ELENA, DR MURILLO Primary Care Unavailable LAKSHMIPATHY ., CINTIA Attending Ileana vailable LAKSHMIPATHY ., NARENDHESHAM Admitting Ileana vailable LAKSHMIPATHY ., CINTIA Consulting Ileana vailable ANAND ., DR ALEENA Bustamante Consulting Unavailable ELENA, DR MURILLO Primary Care Unavailable ANAND ., DR ALEENA Bustamante Attending Unavailable ANAND ., DR ALEENA Bustamante Admitting Unavailable Stoney Giles Primary Care Unavailable Nicko, Piter Alaniz Admitting Unavailabl e Nicko, Piter R Attending UnavailMarla Guadalupe Admitting Unavailable Marla Winslow Attending Unavailable Stoney Giles Primary Care Unavailable Gilbert Chauhan Admitting Unavailable Gilbert Chauhan Attending Unavailable Stoney Giles Primary Care Unavailable Dutch Pereyra Admitting Unavailable Dutch Pereyra Attending Unavailable Stoney Giles Primary Care Unavailable Dutch Pereyra Unavailable LUZ Giles Primary Care Provider [phone] MD Dutch Pereyra Attending Provider [phone] JOHN SHUKLA Attending Unavailable JAVED LEVIN Attending Unavailable Allergies Allergy Classification Reported Allergen(s) Allergy Type Date of Onset Reaction(s) Facility (8 sources) Adhesive agent; Translations: [Adhesive] Allergy to substance 6 Unknown Reaction, Unknown [facility] (13 sources) Latex; Translations: [Latex] Allergy to substance 9 Unknown Reaction, Unknown [facility] (5 sources) BANDAIDS; Translations: [BANDAIDS] Allergy to substance 9 Unknown Reaction [facility] Medications Current Medications Medication Drug Class(es) Dates Sig (Normalized) Sig (Original) 10 ML risankizumab-rzaa 60 MG/ML Injection [Skyrizi] (10 sources) Start: 05-09-2022 Skyrizi 600 MG/10ML as directed Intravenous WEEK 0, WEEK 4, WEEK 8 for 56 days Apr, Active Start: 05-09-2022 Skyrizi 600 MG /10ML as directed Subcutaneous AT WEEK 12 AND THEN EVERY 8 WEEKS AFTER for 56 days DISPENSE WITH ON BODY INJECTOR Apr, Active acetaminophen 325 mg / HYDROcodone bitartrate 7.5 mg oral tablet (19 sources) Opioid Agonist Start: 09-28-2019 Hydrocodone-Ac etaminophen Active 1 TAB PO every 6 to 8 hours September 28, 2019 1:00am Vicodin Active ALPRAZolam 0.25 mg oral tablet (20 sources) Benzodiazepine Start: 12-22-2018 take 0.25 mg by mouth twice daily Alprazolam Active 0.25 MG PO Twice daily December 22, 2018 12:00am Xanax Active Xanax Not-Taking busPIRone hydrochloride 5 mg oral tablet (4 sources) Start: 09-28-2019 take 1 tablet by mouth three times daily Buspirone Active 1 TAB PO Three times daily September 28, 2019 1:00am diclofenac sodium 0.01 mg/mg topical gel (11 sources) Nonsteroidal Anti-inflammatory Drug Start: 08-08-2020 Voltaren 1 % externally Externally bid for 30 days Jul, Active hyoscyamine sulfate 0.125 mg oral tablet (1 source) Start: 07-19-2022 take 1 tablet by mouth every six hours Hyoscyamine Sulfate 0.125 MG 1 TABLET Orally FOUR TIMES A DAY for 30 days Jul, Active methocarbamol 750 mg oral tablet (4 sources) Muscle Relaxant Start: 09-28-2019 take 1 tablet by mouth once daily in the morning Methocarbamol Active 1 TAB PO Every morning September 28, 2019 1:00am nabumetone 750 mg oral tablet (4 sources) Nonsteroidal Anti-inflammatory Drug Start: 09-28-2019 take 1 tablet by mouth once daily in the morning Nabumetone Active 1 TAB PO Every morning September 28, 2019 1:00am predniSONE 20 mg oral tablet (9 sources) Start: 07-19-2022 take 3 tablets by mouth every twenty-four hours predniSONE 20 MG 3 TABLETS Orally Once a day for 7 days Jul, Active Start: 07-13-2022 predniSONE 10 MG 8 tablet on day one then decrease by 1 tablet until gone Orally Once a day for 8 day(s) Jul, Active Start: 12-23-2018 End: 09-28-2019 take 20 mg by mouth once Prednisone Discontinued 20 M G PO Once 90 December 23, 2018 12:00am September 28, 2019 2:55pm Skyrizi 600 MG/10ML (4 sources) Start: 05-09-2022 Skyrizi 600 MG /10ML as directed Intravenous WEEK 0, WEEK 4, WEEK 8 for 56 days Apr, Active Start: 05-09-2022 Skyrizi 600 MG /10ML as directed Subcutaneous AT WEEK 12 AND THEN EVERY 8 WEEKS AFTER for 56 days DISPENSE WITH ON BODY INJECTOR Apr, Active vedolizumab 300 mg injection (15 sources) Integrin Receptor Antagonist Start: 09-02-2019 Vedolizumab (Entyvio ) 300 mg Recon Soln Active 300 MG IV EVERY 8 WEEKS September 28, 2019 1:00am Vitamin D (3 sources) Vitamin D Active zonisamide 50 mg oral capsule (1 source) Anti-epileptic Agent Zonisamide 50 MG as directed Orally Active Completed/Discontinued Medications Medication Drug Class(es) Dates Sig (Normalized) Sig (Original) buPROPion hydrochloride 75 mg oral tablet (4 sources) Aminoketone Start: 12-22-2018 End: 09-28-2019 take 2 tablets by mouth twice daily Bupropion Hcl Discontinued 2 TAB PO Twice daily December 22, 2018 12:00am September 28, 2019 2:55pm 1 ml ustekinumab 90 mg/ml prefilled syringe (7 sources) Interleukin-12 Antagonist, Interleukin-23 Antagonist Stelara 90 MG/ML 90mg Subcutaneous every 8 weeks Not-Taking Problems Active Problems Problem Classification Problem Date Documented Da te Episodic/Chronic Abdominal pain (20 sources) Abdominal pain; Translations: [Unspecified abdominal pain] Onset: 04-25-2022 Resolved: 04-25-2022 Episodic E Codes: Struck by; against (1 source) Striking against or struck by other objects, initial encounter; Translations: [STRIKING AGNST/STRUCK OTH OBJ INIT] Onset: 09-24-2022 Episodic Open wounds of head; neck; and trunk (1 source) Laceration without foreign body of scalp, initial encounter; Translations: [LACERATION W/O FB SCALP INITIAL ENC] Onset: 09-24-2022 Episodic Other aftercare (1 source) Other collection development librarian (current) drug therapy; Translations: [OTH HATCHERY MAN CURRENT DRUG THERAPY] Onset: 09-24-2022 Episodic Other connective tissue disease (5 sources) Other muscle spasm; Translations: [OTHER MUSCLE SPASM] Onset: 10-29-2022 Episodic Other gastrointestinal disorders (20 sources) Diarrhea; Translations: [Diarrhea, unspecified] 12-23-2018 Episodic Other injuries and conditions due to external causes (4 sources) Unspecified injury of head, initial encounter; Translations: [UNSPECIFIED INJURY HEAD INITIAL ENC] Onset: 09-21-2022 Episodic Other nervous system disorders (1 source) Carpal tunnel syndrome of right wrist; Translations: [Carpal tunnel syndrome, right upper limb] Chronic Other nervous system disorders (1 source) Carpal tunnel syndrome, right upper limb Chronic Regional enteritis and ulcerative colitis (20 sources) Crohn's disease of small intestine; Translations: [Crohn's disease of small intestine without complications] Onset: 07-24-2021 Resolved: 04-25-2022 Chronic Spondylosis; intervertebral disc disorders; other back problems (13 sources) Spondylosis without myelopathy or radiculopathy, cervical region; Translations: [Other cervical disc degeneration, unspecified cervical region] Onset: 04-05-2022 Chronic Spondylosis; intervertebral disc disorders; other back problems (7 sources) Cervicalgia; Translations: [Pain in cervical spine] Onset: 10-11-2022 Episodic Unclassified (1 source) Encounter for other preprocedural examination; Translations: [Encounter for other preprocedural examination] Onset: 10-26-2022 Past or Other Problems Problem Classification Problem Date Documented Da te Episodic/Chronic Other connective tissue disease (4 sources) Pain in right foot; Translations: [PAIN IN RIGHT FOOT] Onset: 02-08-2022 Episodic Other gastrointestinal disorders (3 sources) Diarrhea, unspecified; Translations: [DIARRHEA UNSPECIFIED] Onset: 04-25-2022 Resolved: 04-25-2022 Episodic Other skin disorders (4 sources) Nonscarring hair loss, unspecified; Translations: [NONSCARRING HAIR LOSS UNSPECIFIED] Onset: 07-13-2022 Episodic Ovarian cyst (1 source) Unspecified ovarian cyst, right side; Translations: [UNSPECIFIED OVARIAN CYST RIGHT SIDE] Onset: 07-19-2022 Episodic Results Test Name Value Interpretation Reference Range Facility Alanine aminotransferase [En zymatic activity/volume] in Serum or PlasmaOrdered By: Piter Maharaj on 04-03-2023 ALT [Catalytic activity/Vol] 8 U/L 7-52 [facility] Albumin [Mass/volume] in Ser um or Plasma by Bromocresol green (BCG) dye binding methoOrdered By: Piter Maharaj on 04-03-2023 Albumin BCG dye [Mass/Vol] 4.6 g/dL 3.5-5.7 [facility] Alkaline phosphatase [Enzyma tic activity/volume] in Serum or PlasmaOrdered By: Piter Maharaj on 04-03-2023 ALP [Catalytic activity/Vol] 50 U/L 34-104 [facility] Aspartate aminotransferase [ Enzymatic activity/volume] in Serum or PlasmaOrdered By: Piter Maharaj on 04-03-2023 AST [Catalytic activity/Vol] 10 U/L 13-39 [facility] Basophils Auto (Bld) [#/Vol] Ordered By: Piter Maharaj on 04-03-2023 Basophils (Bld) [#/Vol] 0.1 10*3/uL 0.0-0.2 [facility] Basophils/100 WBC Auto (Bld) Ordered By: Piter Maharaj on 04-03-2023 Basophils/100 WBC (Bld) 0.9 % . [facility] Bilirubin.total [Mass/volume ] in Serum or PlasmaOrdered By: Piter Maharaj on 04-03-2023 Bilirubin [Mass/Vol] 0.6 mg/dL 0.3-1.0 [facility] C reactive protein [Mass/vol ume] in Serum or PlasmaOrdered By: Piter Maharaj on 04-03-2023 CRP [Mass/Vol] < 0.5 mg/dL 0.0-0.5 [facility] C-Reactive Proteinon 023 CRP [Mass/Vol] mg/L Normal 0.0-0.5 [facility] Comment on above: Order Comment: Reaso n for Exam Crohns disease Result Comment: PERF ORMED BY: [place] [address] PATHOLOGIST EMPLOYMENT SUPERVISOR JOANA SALCIDO M.D. Performed By: #### C RP, CMP #### [facility] [address] [place] [address] Calcium [Mass/volume] in Ser um or PlasmaOrdered By: Piter Maharaj on 04-03-2023 Calcium [Mass/Vol] 8.8 mg/dL 8.6-10.3 [facility] Carbon dioxide, total [Moles /volume] in Serum or PlasmaOrdered By: Piter Maharaj on 04-03-2023 CO2 [Moles/Vol] 25.0 mmol/L 21.0-31.0 [facility] Chloride [Moles/volume] in S darwin or PlasmaOrdered By: Piter Maharaj on 04-03-2023 Chloride [Moles/Vol] 110 mmol/L 98-107 [facility] Complete Blood Count Auto Di ffon 04-03-2023 Basophils (Bld) [#/Vol] 0.1 10*3/uL Normal 0.0-0.2 [facility] Comment on above: Order Comment: Reaso n for Exam Crohns disease Performed By: #### E SR, CBC #### [facility] [address] [place] [address] [place] Basophils/100 WBC (Bld) 0.9 % Normal . F [facility] Comment on above: Order Comment: Reaso n for Exam Crohns disease Performed By: #### E SR, CBC #### [facility] [address] [place] [address] [place] Eosinophils (Bld) [#/Vol] 0.1 10*3/uL Normal 0.0-0.45 [facility] Comment on above: Order Comment: Reaso n for Exam Crohns disease Performed By: #### E SR, CBC #### [facility] [address] [place] [address] [place] Eosinophils/100 WBC (Bld) 1.3 % Normal . [facility] Comment on above: Order Comment: Reaso n for Exam Crohns disease Performed By: #### E SR, CBC #### [facility] [address] [place] [address] Erythrocyte distribution width (RBC) [Ratio] 12.1 % Normal 11.9-15.3 [facility] Comment on above: Order Comment: Reaso n for Exam Crohns disease Performed By: #### E SR, CBC #### [facility] [address] [place] [address] [place] Hematocrit (Bld) [Volume fraction] 39.4 % Normal 34.0-46.4 [facility] Comment on above: Order Comment: Reaso n for Exam Crohns disease Performed By: #### E SR, CBC #### [facility] [address] [place] [id number] [place] Hemoglobin (Bld) [Mass/Vol] 13.5 g/dL Normal 11.8-15.4 [facility] Comment on above: Order Comment: Reaso n for Exam Crohns disease Performed By: #### E SR, CBC #### [facility] [address] [place] [address] [place] Lymphocytes (Bld) [#/Vol] 1.9 10*3/uL Normal 1.00-4.8 [facility] Comment on above: Order Comment: Reaso n for Exam Crohns disease Performed By: #### E SR, CBC #### [facility] [address] [place] [address] [place] Lymphocytes/100 WBC (Bld) 31.9 % Normal . [facility] Comment on above: Order Comment: Reaso n for Exam Crohns disease Performed By: #### E SR, CBC #### [address] MCH (RBC) [Entitic mass] 30.4 pg Normal 24.7-34.3 [facility] Comment on above: Order Comment: Reaso n for Exam Crohns disease Performed By: #### E SR, CBC #### [facility] [address] [place] [address] MCV (RBC) [Entitic vol] 88.7 fL Normal 80-100 [facility] Comment on above: Order Comment: Reaso n for Exam Crohns disease Performed By: #### E SR, CBC #### [address] Mean Corpuscular HGB Conc 34.2 g/dL Normal 32.0-35.0 [facility] Comment on above: Order Comment: Reaso n for Exam Crohns disease Performed By: #### E SR, CBC #### [facility] [address] [place] [address] [place] Monocytes (Bld) [#/Vol] 0.5 10*3/uL Normal 0.0-0.8 [facility] Comment on above: Order Comment: Reaso n for Exam Crohns disease Performed By: #### E SR, CBC #### [place] [address] [place] Monocytes/100 WBC (Bld) 7.5 % Normal . F [facility] Comment on above: Order Comment: Reaso n for Exam Crohns disease Performed By: #### E SR, CBC #### [facility] [address] [place] [address] [place] Neutrophils (Bld) [#/Vol] 3.5 10*3/uL Normal 1.8-7.7 [facility] Comment on above: Order Comment: Reaso n for Exam Crohns disease Performed By: #### E SR, CBC #### [facility] [address] [place] [address] [place] Neutrophils/100 WBC (Bld) 58.4 % Normal . [facility] Comment on above: Order Comment: Reaso n for Exam Crohns disease Performed By: #### E SR, CBC #### [address] NRBC% 0.2 /100{WBC} Normal 0-0.5 [facility] Comment on above: Order Comment: Reaso n for Exam Crohns disease Performed By: #### E SR, CBC #### [place] [address] [place] Platelet mean volume (Bld) [Entitic vol] 9.3 fL Normal 6.3-10.7 [facility] Comment on above: Order Comment: Reaso n for Exam Crohns disease Performed By: #### E SR, CBC #### [place] [address] [place] Platelets (Bld) [#/Vol] 189 10*3/uL Normal 150-450 [facility] Comment on above: Order Comment: Reaso n for Exam Crohns disease Performed By: #### E SR, CBC #### [facility] [address] [place] [address] [place] RBC (Bld) [#/Vol] 4.44 10*6/uL Normal 3.60-5.00 [facility] Comment on above: Order Comment: Reaso n for Exam Crohns disease Performed By: #### E SR, CBC #### [facility] [address] [place] [address] [place] WBC (Bld) [#/Vol] 6.1 10*3/uL Normal 3.8-11.6 [facility] Comment on above: Order Comment: Reaso n for Exam Crohns disease Performed By: #### E SR, CBC #### [address] Comprehensive Metabolic Pane bob 04-03-2023 Albumin [Mass/Vol] 4.6 g/dL Normal 3.5-5.7 [facility] Comment on above: Order Comment: Reaso n for Exam Crohns disease Performed By: #### C RP, CMP #### [address] Albumin/Globulin [Mass ratio] 2.3 {ratio} Normal [facility] Comment on above: Order Comment: Reaso n for Exam Crohns disease Performed By: #### C RP, CMP #### [address] ALP [Catalytic activity/Vol] 50 U/L Normal 34-104 [facility] Comment on above: Order Comment: Reaso n for Exam Crohns disease Performed By: #### C RP, CMP #### [facility] [address] [place] [address] ALT [Catalytic activity/Vol] 8 U/L Normal 7-52 [facility] Comment on above: Order Comment: Reaso n for Exam Crohns disease Performed By: #### C RP, CMP #### [facility] [address] [place] [address] Anion gap [Moles/Vol] 8.9 mmol/L Normal 6.0-15.0 [facility] Comment on above: Order Comment: Reaso n for Exam Crohns disease Performed By: #### C RP, CMP #### [facility] [address] [place] [address] [place] AST [Catalytic activity/Vol] 10 U/L Low 13-39 [facility] Comment on above: Order Comment: Reaso n for Exam Crohns disease Performed By: #### C RP, CMP #### [place] [address] [place] Bilirubin [Mass/Vol] 0.6 mg/dL Normal 0.3-1.0 [facility] Comment on above: Order Comment: Reaso n for Exam Crohns disease Performed By: #### C RP, CMP #### [facility] [address] Calcium [Mass/Vol] 8.8 mg/dL Normal 8.6-10.3 [facility] Comment on above: Order Comment: Reaso n for Exam Crohns disease Performed By: #### C RP, CMP #### [facility] [address] Chloride [Moles/Vol] 110 mmol/L High 98-107 [facility] Comment on above: Order Comment: Reaso n for Exam Crohns disease Performed By: #### C RP, CMP #### [address] CO2 [Moles/Vol] 25.0 mmol/L Normal 21.0-31.0 [facility] Comment on above: Order Comment: Reaso n for Exam Crohns disease Performed By: #### C RP, CMP #### [facility] [address] [place] [address] Creatinine [Mass/Vol] 0.89 mg/dL Normal 0.60-1.20 [facility] Comment on above: Order Comment: Reaso n for Exam Crohns disease Performed By: #### C RP, CMP #### [facility] [address] [place] [address] [place] GFR/1.73 sq M.predicted MDRD (S/P/Bld) [Vol rate/Area] mL/min/{1.73_m2} Normal [facility] Comment on above: Order Comment: Reaso n for Exam Crohns disease Performed By: #### C RP, CMP #### [facility] [address] Globulin (S) [Mass/Vol] 2.0 g/dL Normal [facility] Comment on above: Order Comment: Reaso n for Exam Crohns disease Performed By: #### C RP, CMP #### [facility] [address] [place] [address] [place] Glucose [Mass/Vol] 91 mg/dL Normal 70-100 [facility] Comment on above: Order Comment: Reaso n for Exam Crohns disease Result Comment: [place] Glucose Reference Range is dependent on time and content of last meal. Glucose of more than 200 mg/dL in a nonstressed, ambulatory subject supports the diagnosis of Diabetes Mellitus. ADA recommended reference range Performed By: #### C RP, CMP #### [facility] [address] Potassium [Moles/Vol] 3.9 mmol/L Normal 3.5-5.1 [facility] Comment on above: Order Comment: Reaso n for Exam Crohns disease Performed By: #### C RP, CMP #### [address] Protein [Mass/Vol] 6.6 g/dL Normal 6.4-8.9 [facility] Comment on above: Order Comment: Reaso n for Exam Crohns disease Performed By: #### C RP, CMP #### [facility] [address] [place] [address] [place] Sodium [Moles/Vol] 140 mmol/L Normal 136-145 [facility] Comment on above: Order Comment: Reaso n for Exam Crohns disease Performed By: #### C RP, CMP #### [facility] [address] [place] [address] [place] Urea nitrogen [Mass/Vol] 12 mg/dL Normal 7-25 [facility] Comment on above: Order Comment: Reaso n for Exam Crohns disease Performed By: #### C RP, CMP #### [facility] [address] [place] [address] [place] Creatinine [Mass/volume] in Serum or PlasmaOrdered By: Piter Maharaj on 04-03-2023 Creatinine [Mass/Vol] 0.89 mg/dL 0.60-1.20 [facility] Eosinophils Auto (Bld) [#/Vo l]Ordered By: Piter Maharaj on 04-03-2023 Eosinophils (Bld) [#/Vol] 0.1 10*3/uL 0.0-0.45 [facility] Eosinophils/100 WBC Auto (Bl d)Ordered By: Piter Maharaj on 04-03-2023 Eosinophils/100 WBC (Bld) 1.3 % . [facility] Erythrocyte Sedimentation Ra sri 04-03-2023 ESR (Bld) [Velocity] mm/h Normal 0-19 [facility] Comment on above: Order Comment: Reaso n for Exam Crohns disease Result Comment: PERF ORMED BY: [place] [address] PATHOLOGIST EMPLOYMENT SUPERVISOR JOANA SALCIDO M.D. Performed By: #### E SR, CBC #### [address] Erythrocyte distribution wid th Auto (RBC) [Ratio]Ordered By: Piter Maharaj on 04-03-2023 Erythrocyte distribution width (RBC) [Ratio] 12.1 % 11.9-15.3 [facility] Erythrocyte sedimentation ra te by Photometric methodOrdered By: Piter Maharaj on 04-03-2023 ESR Photometric method (Bld) [Velocity] < 1 mm/hr 0-19 [facility] Globulin Calc (S) [Mass/Vol] Ordered By: Piter Maharaj on 04-03-2023 Globulin (S) [Mass/Vol] 2.0 g/dL [facility] Glucose [Mass/volume] in Ser um or PlasmaOrdered By: Piter Maharaj on 04-03-2023 Glucose [Mass/Vol] 91 mg/dL 70-100 [facility] Comment on above: ADA recommended refe rence rangeRandom Glucose Reference Range is dependent on time and content of last meal. Glucose of more than 200 mg/dL in a nonstressed, ambulatory subject supports the diagnosis of Diabetes Mellitus. Hematocrit Auto (Bld) [Volum e fraction]Ordered By: Piter Maharaj on 04-03-2023 Hematocrit (Bld) [Volume fraction] 39.4 % 34.0-46.4 [facility] Hemoglobin [Mass/volume] in BloodOrdered By: Piter Maharaj on 04-03-2023 Hemoglobin (Bld) [Mass/Vol] 13.5 g/dL 11.8-15.4 [facility] Leukocytes [#/volume] correc ricardo for nucleated erythrocytes in Blood by Automated counOrdered By: Piter Maharaj on 04-03-2023 WBC corrected for nucl RBC Auto (Bld) [#/Vol] 6.1 10*3/uL 3.8-11.6 [facility] Lymphocytes Auto (Bld) [#/Vo l]Ordered By: Piter Maharaj on 04-03-2023 Lymphocytes (Bld) [#/Vol] 1.9 10*3/uL 1.00-4.8 [facility] Lymphocytes/100 WBC Auto (Bl d)Ordered By: Piter Maharaj on 04-03-2023 Lymphocytes/100 WBC (Bld) 31.9 % . [facility] MCH Auto (RBC) [Entitic mass ]Ordered By: Piter Maharaj on 04-03-2023 MCH (RBC) [Entitic mass] 30.4 pg 24.7-34.3 [facility] MCHC Auto (RBC) [Mass/Vol]Or dered By: Piter Maharaj on 04-03-2023 MCHC (RBC) [Mass/Vol] 34.2 g/dL 32.0-35.0 [facility] MCV Auto (RBC) [Entitic vol] Ordered By: Piter Maharaj on 04-03-2023 MCV (RBC) [Entitic vol] 88.7 fL 80-100 [facility] Monocytes Auto (Bld) [#/Vol] Ordered By: Piter Maharaj on 04-03-2023 Monocytes (Bld) [#/Vol] 0.5 10*3/uL 0.0-0.8 [facility] Monocytes/100 WBC Auto (Bld) Ordered By: Piter Maharaj on 04-03-2023 Monocytes/100 WBC (Bld) 7.5 % . [facility] Neutrophils Auto (Bld) [#/Vo l]Ordered By: Piter Maharaj on 04-03-2023 Neutrophils (Bld) [#/Vol] 3.5 10*3/uL 1.8-7.7 [facility] Neutrophils/100 WBC Auto (Bl d)Ordered By: Piter Maharaj on 04-03-2023 Neutrophils/100 WBC (Bld) 58.4 % . [facility] No Panel InformationOrdered By: Piter Maharaj on 04-03-2023 Estimated GFR (CKD-EPI) > 60.0 mL/Min [facility] Creatinine Clearance (Chem N/A [facility] Nucleated erythrocytes [Pres ence] in Blood by Automated countOrdered By: Piter Maharaj on 04-03-2023 Nucleated RBC Auto Ql (Bld) 0.2 /100{WBC} 0-0.5 [facility] Platelet mean volume Auto (B ld) [Entitic vol]Ordered By: Pitre Maharaj on 04-03-2023 Platelet mean volume (Bld) [Entitic vol] 9.3 fL 6.3-10.7 [facility] Platelets Auto (Bld) [#/Vol] Ordered By: Piter Maharaj on 04-03-2023 Platelets (Bld) [#/Vol] 189 10*3/uL 150-450 [facility] Potassium [Moles/volume] in Serum or PlasmaOrdered By: Piter Maharaj on 04-03-2023 Potassium [Moles/Vol] 3.9 mmol/L 3.5-5.1 [facility] Protein [Mass/volume] in Ser um or PlasmaOrdered By: Piter Maharaj on 04-03-2023 Protein [Mass/Vol] 6.6 g/dL 6.4-8.9 [facility] RBC Auto (Bld) [#/Vol]Ordere d By: Piter Maharaj on 04-03-2023 RBC (Bld) [#/Vol] 4.44 10*6/uL 3.60-5.00 [facility] Serum or plasma albumin/glob ulin mass ratioOrdered By: Piter Maharaj on 04-03-2023 Albumin/Globulin [Mass ratio] 2.3 {ratio} [facility] Serum or plasma anion gap de terminationOrdered By: Piter Maharaj on 04-03-2023 Anion gap [Moles/Vol] 8.9 mmol/L 6.0-15.0 [facility] Sodium [Moles/volume] in Ser um or PlasmaOrdered By: Piter Maharaj on 04-03-2023 Sodium [Moles/Vol] 140 mmol/L 136-145 [facility] Urea nitrogen [Mass/volume] in Serum or PlasmaOrdered By: Piter Maharaj on 04-03-2023 Urea nitrogen [Mass/Vol] 12 mg/dL 7-25 [facility] WBC Auto (Bld) [#/Vol]Ordere d By: Piter Maharaj on 04-03-2023 WBC (Bld) [#/Vol] 6.1 10*3/uL 3.8-11.6 [facility] XR cervical spine w flex/ext on 04-03-2023 XR cervical spine w flex/ext [facility] [place] [address] XRay Report Signed Patient: Alejandra Licona MR#: [id number] : 1990 Acct:[id number] Age/Sex: 32 / F ADM Date: 04/03/23 Loc: XD Room: Type: [facility] Attending Dr: Dutch Pereyra MD Copies to: Dutch Pereyra MD Ordering Provider: Dutch Pereyra MD Date of Service: 04/03/23 XR/XR cervical spine w flex/ext: M54.2 XR cervical spine w flex/ext 04/03/2023 5:09 PM SIGNS AND SYMPTOMS: Cervical pain PROTOCOLS: Frontal, lateral, oblique, and flexion-extension views of the cervical spine COMPARISON: None FINDINGS: There is straightening and mild reversal of the normal cervical lordosis. Flexion and extension views show no pathologic movement. The prevertebral soft tissues are within normal limits. There is preservation of the vertebral body heights. There is moderate severe disc height loss at C5-C6 and C6-C7 with anterior osteophyte formation and uncovertebral joint spurring. Degenerative changes are noted in the atlantoaxial joint. There is no fracture or destructive lesion. XR/XR cervical spine w flex/ext IMPRESSION: There is no fracture or subluxation. There is straightening of the normal cervical lordosis which may be positional or secondary to muscle spasm. Degenerative changes are noted in the cervical spine, greatest at C5-C6 and C6-C7. No pathologic movement on flexion or extension. Impression dictated by: Brian Muhammad M.D.04/03/2023 7:24 PM Dictation Location: [place] [address] Transcribed By: CHANDLER 04/03/231923 Dictated By: Brian Muhammad II, MD 04/03/231921 Signed By: 04/03/231923 [facility] PREG HCG QUALon 12-11-2022 , QUAL Negative Normal NEGATIVE [facility] Comment on above: Performed By: #### C MVM #### [facility] [address], [place] [address] Dr. Niurka Blount PREG HCG QUALon 12-04-2022 , QUAL Negative Normal NEGATIVE [facility] Comment on above: Performed By: #### P REG #### [facility] [address], [place] [address] Dr. Niurka Blount Coding Summary.on 11-17-2022 Coding Summary. CD:[id number] bWw+PGhlYWQ+NO3TKVE lR00xhBOlmW1jK6ZQCJ lOSywgQVBQTElOSyIgb yMfMM9euJYgKBGz IC8+WT3zUTFxKrngqLE zs8O3jVJ1Y48jit1jHR wbsBP4YYZvSuWhjgayw 8zhvNa8DEgmOxjeFcUc KUKynN07DKE2zG43Vo5 6mCKvhWNvh2tkuFr6Cw LvANHiRTR7fCdrZIobr 6TpZFYdI29bdVPfd3A1 IGNvbGxhcHNlOyBlbXB 6xX5wBEqllendb2vlrj oyCnq8xk05vLXvy8Z4z OJ5J9KufrA7RCBdeMUi RjywxEKCxN0gslyks1b ohuozAgLmKBUdIQk6VN b1CAXfqLijRxRyJH93Z CI1HUUrtsBvJ6GpHTAb rRjpJvL0c4S9Al7UX0F VSbplJ4JKBKJLNXwauV Q+EN54bo58L8DhOrrqD oj8FBJwOHE6pSQ5tV1s ERExHNruh3M4tPF8Y4X feqSnbe1jq4quKSHoLP esV60vnDKnb1S9SXXod FR3BEQwyGpcNyMhnC72 Oyc+KJGjqLdpi6KzObv dj0yvm1luwTa4XbcuOA MgnyChnEgiHWG3l4SdD n5tTKIdgFA9yKK7eM1p VbZnCtZ9ULboM709HbD znYObOlkwT07mK5CjdF A+CLRgHte5WACtdQojR D8qW4CmIAFvjnsytKOp lRdtEQ3cBQMifjbnUSZ rmQ2pBPZkD4q0KbZaDi F2RSawP2NzSKOgghdfE y27eJ3gGyEkDiK9LNmh V3OiclD1UVCqwQJdNQe dTHP8F32zn0R3YFSzIJ PlPPL7zWI3lT8luExdc jogbGVmdDsgdmVydGlj IVmcFXjvS266EOYerTb nPkNvZGluZyBEYXRlOi AgMDQvMDgvMjAyMzwvd GQ+CKOkYVH4iSdfWZEr kFTfARwaVb1fwXvhyVr sGD0kBMBpoxbrGQFogY 7fWXNyuOAzxMdiRC6gL KKiosdld285KwDbKUG9 SSAngAJfY4HvjH9jDdO fTZHuICIiK9ZrsDGzJC rnA856XQhnCuL6ZHYsr eMyD6AnXPKpkWvlIgG1 o1N7Rz1Iq8OhzqdvV6K zaVUuGwIrAxehQPo8X9 RkPjwvdHI+VQ75RPUvV B75LVj9DJI4rVepSEew ZVVvF5HwnG3tChErFJC kZGRkOyc+PHRhYmxlIH dpZHRoPScxMDAlJyBzd GxcES6dDk6dQPYqNADr zJsxaDHsZoQgf1ssRJO yEPshOQ5biQymX6AtjM W4FVThp9x8Iq66A98sJ 3JvdXA+RBRppXP9qOF7 pH2xYjCgBgY5BKdzP16 4CjRseDVkPknzm9acw9 stlYw6UkH4NBIlhbUqe PvjASQ6j3XzFu70N50p IHdpZHRoPSIxNSUiIHZ imPlelb0tuL6nQs3+PG UzvIJ4rHJ1gO1tYtVaZ qV1UKkaT314EnXfkFBf Xrosf0cym9pyrMk3NmL qFXPyjfJqvSvhALB1p0 LeYi47T3OeqUwtr1CiG zw2qw36sGPai8A2xIO9 I2YqPWXbhsftzFUiqXh aPK2uZIKcqgzaNONitU 2dNPZqZ2b5PqEsAtG2S VfeY0ZkbjJ7FAFkoMBq PBJurPLJrO6gufssf6x sxkquYrFtXCWiTOm7ZP s8RWLkvYdlXiXaLXY1L jO4NVJ2uGIdzC5suNmz yzwgpP1sOrx+JFO5uJW pwIDOWC1jWmptbZA+PH SdVUZ0wGtsKZqnOXEej T8fLJVnP2z6HfDoDpP8 SUbtU8LnpyJ4VZUteDK zJYQiwOZEhK5vitijj5 gzivnrYaTmRIQiTDc0X Nw7MZUifVqrLrRqNZP4 HwC5AWC7oKFyhL6gxGl dqxmtxP0xEpc+QmlydG taLDG9PVc6P2ZtGgh8X GTgdDajMB3ivAGqBHxw Bo3mkHtfzJbkDZ7mEUU gyveuv047FzRmg9coKO TxxNUoVXieDRG1Q60ql 6T6XPAlRRRoZEL0wBX6 sL0rzIbtdofpwZFgtLk gdmVydGljYWwtYWxpZ2 86KAVsyGypAyYoYVh0A 2QxUon2QIDqbMtrVD2z gDAgDXxlAu8mmQnuwFl mDG7uURDorjtcy950Dh Cfg8oiISKsbQMuPVchJ EE2X73hm2U5IEMiFOTg EFZ8bFZ1lU9qyXgniqh gbGVmdDsgdmVydGljYW ezHTggZ015BCDtbImdF oNieWm9Z8YoPdd1UPJz jPxaGT0paPLjHXdmQg9 ixFhuySqmDJ9xDKJhrr msb575QnTor6jcIRAcm QCzVAffQHL0Z65ah5X6 VDEzVORuKBH4pCD6aW1 hbGlnbjogbGVmdDsgdm TurSawWUqnTPxxS752L HRvcDsnPlBhdGllbnQg ROjoJOz0K9KvTuzgjMF +EG57PSUmQV11rGUocR Blr6qjwVz5PzRpSSQrE YU9nTcnUPssr8MmZMSi M08rzDUdw9Y1PNGejEr edSYbVnJmsFY8tZ5mXS upkpzxp7rtwihdGwktp 1qeca38bZ75R71uFOgd ZHRoPSIzMCUiIHZhbGl xrv5gfY2iZs7+PGNvbC W3oVS9eN3wAUSjTjN1Y SznV452DqEcaMZaIsyb h1fvj2qvzXr1RzD0TZN dmjGgeYjaKYI9f6LqPz 81B54sHTsxRSPiSKQgG DQbRXUeaGiruy4lzJ8r Ii8+XKMgcWP1pCM4cE1 nKlKyZlQ2VQgtZ058Wq ZlgOEaYvrvR63eZ1Udp XA+FSVsFms3JLPzfVuc WS4dyGLeWOtxNu0pUYQ 8KzIdBvUeOUjpQ9SrDW UggugbwsrevUO2NIBgE YXahK20Ou9azSpzKMNd wKJXxB2apfbpr3teisj dKoCuQNUbJXr8JNq9DH CctHztJbPpDWK6AqQ0R NK4qQAbmN6hwYzqcklf nF8cT2MvCXBhjfsvCl0 9hN6mWvBwAlU1TIasPu c+XK0RQt7MSymsLBgSL FkgTTwvdGQ+PHRkIHN0 yDjxXNmfOUDsfO5qBXX bP7g8KzWaXoH3HSyqQ9 FpOSPuyrdrVf25gN4vK iRoQgC1AYsbJ6LklhG7 VDUrjQTeREvhULA1H91 mv8N9AMHhYKPxPES6sE U0wU3qbSbanqxzyBCtk DsgdmVydGljYWwtYWxp Q525VIGabYujSoPgUaN oStY2GLU0M9FfZgs6QF EzpLrwYF2wwEQqSPvrH q0feVwdqZgjWI3bIECe tsgqLLKyzY7hBZOzbJI nuKdqEJ7yGHQsxtqqd5 49SmNwGCS2CWJpnEBiL 5YphU7gAnDgCDLkHTTt F1MibLLkMNiyL383ISa jPrJ0BLTakvQyD4YjHW PeaWqoPeT1d6C6Hs6eQ iBZZWFyczwvdGQ+PHRk JHX3eIalHFmoSFWmsT6 aTIXsH3y5PfVdTkC2II qxS5IvALYvfzhlYi75r W8eIpQgEbP8KTeoR9La krW5NJHacBAzCGqyREA 6U57bv5E5BDEyIYUaDG J4dMD1rP0dqGmijposn GVmdDsgdmVydGljYWwt DWglZ767XKGexGpmYmP lbWFsZTwvdGQ+PHRkIH W1tXfwUHghQZEnzJ9yY PWoA0s1BkOjMrB1WSog O7VbCKDeuigmHg35wW7 uJjAfAtC2TPscJ0Qajk L4GCNceYMfXDulALH5J 44oe9S3LRIoJUNbXMK9 kID8zF8wuGqvaepbaCD mdDsgdmVydGljYWwtYW kqE511BYEwrJzsUnhzM uUFqb9rFF2rJepfsOS+ BX55dd82Q4OyJrodIxq 5RFGzBLE6lQT8eZ0tNL SpQPkpo7X9dIE0B4Uwp yUfaw2pg0tdDKNkHFvd P45kfHRuz3A1MGZmnXJ 6LNWsrBnoJeTbmQ43Oc c+XOVrtBasc5TjJlrws 4nnh9ifmUh6PzAlPOSr wuCksPwkHEQ0z7XdSb8 4B25qGSkhKSZdJNVwJF HpZDDraEwfhy2onD9wR i8+FLAbhIT1tUI4lZ7r KfFjSjY3GCrmX393WaM cdZJmJktiv2vqn3ensK p0PlDmOKTvbrXnqVneV HK0s1TxYt14Y2YmuNrx g8HxFll0rv98rXQqf0S 1iEM6N8SmORJzbidmsD SuuElbQQ6gGZVulwsjR IRxwV3dXUIpC3n3BnHy NmW7WHzvS5FnrbB4FWJ ckCFgMBAqxEKKtA5vdi ufv5hyzhhtTmRlOKHtG Oe2PDd3CKBzbEtuFgRt YKJ1DtK2OJK7uZVpgD8 hvPfmtwkglB9sIim+UG f5x3sfpQQvCA9jmHG5G F91IM33zSFhd6L0lPS1 D7RoJCNzsogbhhbkqBE 6WLFhTCLruO16Sv8etV cuWk7mKUZlXRL4HSZoh DOpM5EvwF7nLrSiGYGi IMEzW8LnbUVmOKysL82 4ZUuuMgG4SGWamlPcH8 AiRDGwnPuhPeJ6e2R8B c5EIV30MQ18QA89oQKi f3S3pTK7S2SyOQLhfxz szfsuwZI2WWPhWEBwrZ 21Vc3irErbQe1cQGOtL LM8CJUpsRMqN1BnwL8w YlOuBGQjKMYhM9PjhFX wQBiuS410KJzsLgY6RH RhcqHfS0WmLCZmhHhjB aI0n2T5Nm3SNh32NY43 XU03mNNwi8D2aUI6L1P jFPPbbnfuvjurvGL7TY CqQNTauZ90Mp7eaYltT c4fOXGwIWR7KRSonKMg J5GpoM7qKsHjERKiBYL uF6KheQKlGAuyX930QS ijRuE4OJIgnhAdB5UmB LXdgOzyXlD8m0L8Xt0M AAvmlma7U2NzOnwxdRD +HF72PXAuWO91pWFulX Wem1yzcYb3GsFeTKAzL WY1wAhpVNopz3DsJQXp G96qsFFw (more content not included)... Normal [facility] Physician Orderon 11-07-2022 Physician Order [id number] Normal [facility] Basic Metabolic Panelon 10-10 Anion gap [Moles/Vol] 12.5 mmol/L Normal 6.0-15.0 [facility] Comment on above: Order Comment: Reaso n for Exam Preprocedural examination Performed By: #### C BC, BMP #### [address] Calcium [Mass/Vol] 9.4 mg/dL Normal 8.6-10.3 [facility] Comment on above: Order Comment: Reaso n for Exam Preprocedural examination Result Comment: PERF ORMED BY: [place] [address] PATHOLOGIST EMPLOYMENT SUPERVISOR JOANA SALCIDO M.D. Performed By: #### C BC, BMP #### [facility] [address] [place] [address] [place] Chloride [Moles/Vol] 105 mmol/L Normal 98-107 [facility] Comment on above: Order Comment: Reaso n for Exam Preprocedural examination Performed By: #### C BC, BMP #### [place] [address] [place] CO2 [Moles/Vol] 26.4 mmol/L Normal 21.0-31.0 [facility] Comment on above: Order Comment: Reaso n for Exam Preprocedural examination Performed By: #### C BC, BMP #### [place] [address] [place] Creatinine [Mass/Vol] 0.91 mg/dL Normal 0.60-1.20 [facility] Comment on above: Order Comment: Reaso n for Exam Preprocedural examination Performed By: #### C BC, BMP #### [place] [address] [place] GFR/1.73 sq M.predicted MDRD (S/P/Bld) [Vol rate/Area] mL/min/{1.73_m2} [facility] Comment on above: Order Comment: Reaso n for Exam Preprocedural examination Performed By: #### C BC, BMP #### [place] [address] [place] Glucose [Mass/Vol] 91 mg/dL Normal 74-109 [facility] Comment on above: Order Comment: Reaso n for Exam Preprocedural examination Result Comment: [place] om Glucose Reference Range is dependent on time and content of last meal. Glucose of more than 200 mg/dL in a nonstressed, ambulatory subject supports the diagnosis of Diabetes Mellitus. ADA recommended reference range Performed By: #### C BC, BMP #### [place] [address] [place] Potassium [Moles/Vol] 3.9 mmol/L Normal 3.5-5.1 [facility] Comment on above: Order Comment: Reaso n for Exam Preprocedural examination Performed By: #### C BC, BMP #### [facility] [address] [place] [id number] [facility] Sodium [Moles/Vol] 140 mmol/L Normal 136-145 [facility] Comment on above: Order Comment: Reaso n for Exam Preprocedural examination Performed By: #### C BC, BMP #### [facility] [address] Urea nitrogen [Mass/Vol] 15 mg/dL Normal 7-25 [facility] Comment on above: Order Comment: Reaso n for Exam Preprocedural examination Performed By: #### C BC, BMP #### [facility] [address] Basophils Auto (Bld) [#/Vol] Ordered By: Gilbert Chauhan on 10-26-2022 Basophils (Bld) [#/Vol] 0.1 10*3/uL 0.0-0.2 [facility] Basophils/100 WBC Auto (Bld) Ordered By: Gilbert Chauhan on 10-26-2022 Basophils/100 WBC (Bld) 0.8 % . F [facility] Calcium [Mass/volume] in Ser um or PlasmaOrdered By: Gilbert Chauhan on 10-26-2022 Calcium [Mass/Vol] 9.4 mg/dL 8.6-10.3 [facility] Carbon dioxide, total [Moles /volume] in Serum or PlasmaOrdered By: Gilbert Chauhan on 10-26-2022 CO2 [Moles/Vol] 26.4 mmol/L 21.0-31.0 [facility] Chloride [Moles/volume] in [place] or PlasmaOrdered By: Gilbert Chauhan on 10-26-2022 Chloride [Moles/Vol] 105 mmol/L 98-107 [facility] Complete Blood Count Auto Di ffon 10-26-2022 Basophils (Bld) [#/Vol] 0.1 10*3/uL Normal 0.0-0.2 [facility] Comment on above: Order Comment: Reaso n for Exam Preprocedural examination Result Comment: PERF ORMED BY: [place] [address] PATHOLOGIST EMPLOYMENT SUPERVISOR JOANA SALCIDO M.D. Performed By: #### C BC, BMP #### [facility] [address] [place] [address] [place] Basophils/100 WBC (Bld) 0.8 % Normal . [facility] Comment on above: Order Comment: Reaso n for Exam Preprocedural examination Performed By: #### C BC, BMP #### [place] [address] [place] Eosinophils (Bld) [#/Vol] 0.1 10*3/uL Normal 0.0-0.45 [facility] Comment on above: Order Comment: Reaso n for Exam Preprocedural examination Performed By: #### C BC, BMP #### [facility] [address] [place] [address] [place] Eosinophils/100 WBC (Bld) 1.6 % Normal . [facility] Comment on above: Order Comment: Reaso n for Exam Preprocedural examination Performed By: #### C BC, BMP #### [address] Erythrocyte distribution width (RBC) [Ratio] 12.3 % Normal 11.9-15.3 [facility] Comment on above: Order Comment: Reaso n for Exam Preprocedural examination Performed By: #### C BC, BMP #### [facility] [address] [place] [address] Hematocrit (Bld) [Volume fraction] 39.7 % Normal 34.0-46.4 [facility] Comment on above: Order Comment: Reaso n for Exam Preprocedural examination Performed By: #### C BC, BMP #### [place] [address] [place] Hemoglobin (Bld) [Mass/Vol] 13.9 g/dL Normal 11.8-15.4 [facility] Comment on above: Order Comment: Reaso n for Exam Preprocedural examination Performed By: #### C BC, BMP #### [address] Lymphocytes (Bld) [#/Vol] 1.5 10*3/uL Normal 1.00-4.8 [facility] Comment on above: Order Comment: Reaso n for Exam Preprocedural examination Performed By: #### C BC, BMP #### [address] Lymphocytes/100 WBC (Bld) 20.0 % Normal . [facility] Comment on above: Order Comment: Reaso n for Exam Preprocedural examination Performed By: #### C BC, BMP #### [address] MCH (RBC) [Entitic mass] 30.9 pg Normal 24.7-34.3 [facility] Comment on above: Order Comment: Reaso n for Exam Preprocedural examination Performed By: #### C BC, BMP #### [address] MCV (RBC) [Entitic vol] 88.2 fL Normal 80-100 [facility] Comment on above: Order Comment: Reaso n for Exam Preprocedural examination Performed By: #### C BC, BMP #### [address] Mean Corpuscular HGB Conc 35.1 g/dL High 32.0-35.0 [facility] Comment on above: Order Comment: Reaso n for Exam Preprocedural examination Performed By: #### C BC, BMP #### [place] [address] [place] Monocytes (Bld) [#/Vol] 0.6 10*3/uL Normal 0.0-0.8 [facility] Comment on above: Order Comment: Reaso n for Exam Preprocedural examination Performed By: #### C BC, BMP #### [place] [address] [place] Monocytes/100 WBC (Bld) 7.6 % Normal . [facility] Comment on above: Order Comment: Reaso n for Exam Preprocedural examination Performed By: #### C BC, BMP #### [facility] [address] Neutrophils (Bld) [#/Vol] 5.1 10*3/uL Normal 1.8-7.7 [facility] Comment on above: Order Comment: Reaso n for Exam Preprocedural examination Performed By: #### C BC, BMP #### [facility] [address] Neutrophils/100 WBC (Bld) 70.0 % Normal . [facility] Comment on above: Order Comment: Reaso n for Exam Preprocedural examination Performed By: #### C BC, BMP #### [address] NRBC% 0.3 /100{WBC} Normal 0-0.5 [facility] Comment on above: Order Comment: Reaso n for Exam Preprocedural examination Performed By: #### C BC, BMP #### [address] Platelet mean volume (Bld) [Entitic vol] 9.7 fL Normal 6.3-10.7 [facility] Comment on above: Order Comment: Reaso n for Exam Preprocedural examination Performed By: #### C BC, BMP #### [place] [address] [place] Platelets (Bld) [#/Vol] 188 10*3/uL Normal 150-450 [facility] Comment on above: Order Comment: Reaso n for Exam Preprocedural examination Performed By: #### C BC, BMP #### [place] [address] [place] RBC (Bld) [#/Vol] 4.50 10*6/uL Normal 3.60-5.00 [facility] Comment on above: Order Comment: Reaso n for Exam Preprocedural examination Performed By: #### C BC, BMP #### [facility] [address] [place] [id number] [place] WBC (Bld) [#/Vol] 7.3 10*3/uL Normal 3.8-11.6 [facility] Comment on above: Order Comment: Reaso n for Exam Preprocedural examination Performed By: #### C JAMEY, BMP #### [facility] [address] [place] [id number] [place] Creatinine [Mass/volume] in Serum or PlasmaOrdered By: Gilbert Chauhan on 10-26-2022 Creatinine [Mass/Vol] 0.91 mg/dL 0.60-1.20 [facility] Eosinophils Auto (Bld) [#/Vo l]Ordered By: Gilbert Chauhan on 10-26-2022 Eosinophils (Bld) [#/Vol] 0.1 10*3/uL 0.0-0.45 [facility] Eosinophils/100 WBC Auto (Bl d)Ordered By: Gilbert Chauhan on 10-26-2022 Eosinophils/100 WBC (Bld) 1.6 % . [facility] Erythrocyte distribution wid th Auto (RBC) [Ratio]Ordered By: Gilbert Chauhan on 10-26-2022 Erythrocyte distribution width (RBC) [Ratio] 12.3 % 11.9-15.3 [facility] Glucose [Mass/volume] in Ser um or PlasmaOrdered By: Gilbert Chauhan on 10-26-2022 Glucose [Mass/Vol] 91 mg/dL 74-109 [facility] Comment on above: ADA recommended refe rence rangeRandom Glucose Reference Range is dependent on time and content of last meal. Glucose of more than 200 mg/dL in a nonstressed, ambulatory subject supports the diagnosis of Diabetes Mellitus. Hematocrit Auto (Bld) [Volum e fraction]Ordered By: Gilbert Chauhan on 10-26-2022 Hematocrit (Bld) [Volume fraction] 39.7 % 34.0-46.4 [facility] Hemoglobin [Mass/volume] in BloodOrdered By: Gilbert Chauhan on 10-26-2022 Hemoglobin (Bld) [Mass/Vol] 13.9 g/dL 11.8-15.4 [facility] Laboratory - Chemistry and C hemistry - challengeOrdered By: Gilbert Chauhan on 10-26-2022 GFR/1.73 sq M.predicted MDRD (S/P/Bld) [Vol rate/Area] mL/min/{1.73_m2} [facility] Leukocytes [#/volume] correc ricardo for nucleated erythrocytes in Blood by Automated counOrdered By: Gilbert Chauhan on 10-26-2022 WBC corrected for nucl RBC Auto (Bld) [#/Vol] 7.3 10*3/uL 3.8-11.6 [facility] Lymphocytes Auto (Bld) [#/Vo l]Ordered By: Gilbert Chauhan on 10-26-2022 Lymphocytes (Bld) [#/Vol] 1.5 10*3/uL 1.00-4.8 [facility] Lymphocytes/100 WBC Auto (Bl d)Ordered By: Gilbert Chauhan on 10-26-2022 Lymphocytes/100 WBC (Bld) 20.0 % . [facility] MCH Auto (RBC) [Entitic mass ]Ordered By: Gilbert Chauhan on 10-26-2022 MCH (RBC) [Entitic mass] 30.9 pg 24.7-34.3 [facility] MCHC Auto (RBC) [Mass/Vol]Or dered By: Gilbert Chauhan on 10-26-2022 MCHC (RBC) [Mass/Vol] 35.1 g/dL 32.0-35.0 [facility] MCV Auto (RBC) [Entitic vol] Ordered By: Gilbert Chauhan on 10-26-2022 MCV (RBC) [Entitic vol] 88.2 fL 80-100 [facility] Monocytes Auto (Bld) [#/Vol] Ordered By: Gilbert Chauhan on 10-26-2022 Monocytes (Bld) [#/Vol] 0.6 10*3/uL 0.0-0.8 [facility] Monocytes/100 WBC Auto (Bld) Ordered By: Gilbert Chauhan on 10-26-2022 Monocytes/100 WBC (Bld) 7.6 % . [facility] Neutrophils Auto (Bld) [#/Vo l]Ordered By: Gilbert Chauhan on 10-26-2022 Neutrophils (Bld) [#/Vol] 5.1 10*3/uL 1.8-7.7 [facility] Neutrophils/100 WBC Auto (Bl d)Ordered By: Gilbert Chauhan on 10-26-2022 Neutrophils/100 WBC (Bld) 70.0 % . [facility] No Panel InformationOrdered By: Gilbert Chauhan on 10-26-2022 Pharmacy Creatinine Clearance (Chem N/A [facility] Nucleated erythrocytes [Pres ence] in Blood by Automated countOrdered By: Gilbert Chauhan on 10-26-2022 Nucleated RBC Auto Ql (Bld) 0.3 /100{WBC} 0-0.5 [facility] Platelet mean volume Auto (B ld) [Entitic vol]Ordered By: Gilbert Chauhan on 10-26-2022 Platelet mean volume (Bld) [Entitic vol] 9.7 fL 6.3-10.7 [facility] Platelets Auto (Bld) [#/Vol] Ordered By: Gilbert Chauhan on 10-26-2022 Platelets (Bld) [#/Vol] 188 10*3/uL 150-450 [facility] Potassium [Moles/volume] in Serum or PlasmaOrdered By: Gilbert Chauhan on 10-26-2022 Potassium [Moles/Vol] 3.9 mmol/L 3.5-5.1 [facility] RBC Auto (Bld) [#/Vol]Ordere d By: Gilbert Chauhan on 10-26-2022 RBC (Bld) [#/Vol] 4.50 10*6/uL 3.60-5.00 [facility] Serum or plasma anion gap de terminationOrdered By: Gilbert Chauhan on 10-26-2022 Anion gap [Moles/Vol] 12.5 mmol/L 6.0-15.0 [facility] Sodium [Moles/volume] in Ser um or PlasmaOrdered By: Gilbert Chauhan on 10-26-2022 Sodium [Moles/Vol] 140 mmol/L 136-145 [facility] Urea nitrogen [Mass/volume] in Serum or PlasmaOrdered By: Gilbert Chauhan on 10-26-2022 Urea nitrogen [Mass/Vol] 15 mg/dL 7 [facility] WBC Auto (Bld) [#/Vol]Ordere d By: Gilbert Chauhan on 10-26-2022 WBC (Bld) [#/Vol] 7.3 10*3/uL 3.8-11.6 [facility] XR chest 2V*on 10-26-2022 XR chest 2V* [facility] [place] [address] [place] [address] XRay Report Signed Patient: Alejandra Licona MR#: [id number] : 1990 Acct:[id number] Age/Sex: 32 / F ADM Date: 10/26/22 Loc: XD Room: Type: [facility] Attending Dr: Gilbert Chauhan DPAngely Copies to: Gilbert Chauhan DPM Ordering Provider: Gilbert Chauhan DPM Date of Service: 10/26/22 XR/XR chest 2V*: surgery;Preprocedur al examination Chest 2 views CLINICAL HISTORY: Preop chest for ankle surgery. COMPARISON: None FINDINGS: Heart normal size. Lungs are clear. No free air. XR/XR chest 2V* IMPRESSION: NO ACUTE CARDIOPULMONARY ABNORMALITY. Impression dictated by: Waylon Lares Jr., DChaniOChani10/26/2022 5:47 PM Dictation Location: [place] [address] Transcribed By: [facility] 10/26/221746 Dictated By: Waylon Lares Jr, DO 10/26/221746 Signed By: 10/26/221746 Normal [facility] PREG HCG QUALon 10-09-2022 , QUAL Negative Normal NEGATIVE [facility] Comment on above: Performed By: #### P REG #### [facility] [address] HEAD WO CONon 09-21-2022 CT HEAD WO CON EXAMINATION: CT HEAD WO CON HISTORY: UNSPECIFIED INJURY OF HEAD, INITIAL ENCOUNTER ; struck back of head COMPARISON: No relevant comparison available. TECHNIQUE: Axial CT images were obtained without IV contrast. Dose reduction techniques were achieved by using automated exposure control and/or adjustment of mA and/or kV according to patient size and/or use of iterative reconstruction technique. FINDINGS: BRAIN: No edema, hemorrhage, mass, acute infarction, or inappropriate atrophy. CSF SPACES: No hydrocephalus, subarachnoid hemorrhage, or mass. Appropriate for age. SKULL: No fracture, mass, or other significant visible lesion. SINUSES: No significant mucosal thickening or fluid on the limited views. ORBITS: No appreciable abnormality on the limited views. OTHER: Negative IMPRESSION: 1. Normal CT appearance of the brain. 2. No fracture of the calvarium or scalp hematoma. Electronically authenticated by: DEANN THOMASON Date: 2022-09-21 14:32 Normal [facility] XR ankle LT min 3V*on 2022 XR ankle LT min 3V* [facility] [place] [address] [place] [address] XRay Report Signed Patient: Alejandra Licona MR#: [id number] : 1990 Acct:[id number] Age/Sex: 31 / F ADM Date: 08/23/22 Loc: XDUC Room: Type: [facility] Attending Dr: Marla Winslow APRN Copies to: Marla Winslow APRN Ordering Provider: Marla Winslow APRN Date of Service: 08/23/22 XR/XR ankle LT min 3V*: LEFT ANKLE INJURY 3views LEFTankle COMPARISON:None HISTORY: LEFT ankle injury No fracture, dislocation or focal soft tissue abnormality seen. XR/XR ankle LT min 3V* IMPRESSION: No acute findings. Impression dictated by: Carrington Flores M.D.08/23/2022 2:20 PM Dictation Location: [place] [address] Transcribed By: [facility] 08/23/22 1420 Dictated By: Carrington Flores DO 08/23/22 1345 Signed By: 08/23/22 1420 Normal [facility] PREG HCG QUALon 08-21-2022 , QUAL Negative Normal NEGATIVE [facility] Comment on above: Performed By: #### S EDR #### [facility] [address] [place] [address] Dr. Niurka Blount CMV AB IGMon 07-21-2022 Cytomegalovirus (CMV) Ab, IgM <30.0 Normal 0.0-29.9 [facility] Comment on above: Result Comment: Nega tive <30.0 Equivocal 30.0 - 34.9 Positive >34.9 A positive result is generally indicative of acute infection, reactivation or persistent IgM production. Performed By: #### C MVM #### [facility] [address] [place] [address] Dr. Niurka Blount CMV AB, IGGon 07-21-2022 Cytomegalovirus (CMV) Ab, IgG <0.60 Normal 0.00-0.59 [facility] Comment on above: Result Comment: Nega tive <0.60 Equivocal 0.60 - 0.69 Positive >0.69 Performed By: #### C MVIGG #### [facility] [address] [place] [address] Dr. Niurka Blount CBC AUTO DIFFon 07-17-2022 BASO # 0.0 103/ul Normal 0.0-0.1 [facility] Comment on above: Performed By: #### S EDR #### [facility] [address] [place] [address] Dr. Niurka Blount Basophils/100 WBC (Bld) 0.4 % Normal 0.2-2.0 [facility] Comment on above: Performed By: #### S EDR #### [facility] [address] [place] [address] Dr. Niurka Blount EO # 0.0 103/ul Normal 0.0-0.7 [facility] Comment on above: Performed By: #### S EDR #### [facility] [address] [place] [address] Dr. Niurka Blount Eosinophils/100 WBC (Bld) 0.0 % Critically low 0.9-7.0 [facility] Comment on above: Performed By: #### S EDR #### [facility] [address] [place] [address] Dr. Niurka Blount Erythrocyte distribution width (RBC) [Ratio] 11.4 % Normal 11.0-15.0 [facility] Comment on above: Performed By: #### S EDR #### [facility] [address] [address] [address] Niurka Blount Hematocrit (Bld) [Volume fraction] 40.2 % Normal 36.0-48.0 [facility] Comment on above: Performed By: #### S EDR #### [facility] [address] [address] [address] Niurka Blount Hemoglobin (Bld) [Mass/Vol] 14.5 g/dL Normal 12.0-16.0 [facility] Comment on above: Performed By: #### S EDR #### [facility] [address] [address] [address] Niurka Blount IG # 0.08 10e3/ul Critically high 0.00-0.03 [facility] Comment on above: Performed By: #### S EDR #### [facility] [address] [place] [address] Dr. Niurka Blount IG % 0.8 % Critically high 0.0-0.5 [facility] Comment on above: Performed By: #### S EDR #### [facility] [address] [address] [address] Niurka Blount LYMPH # 1.3 103/ul Normal 1.2-3.8 [facility] Comment on above: Performed By: #### S EDR #### [facility] [address] [address] [address] Niurka Blount Lymphocytes/100 WBC (Bld) 12.0 % Critically low 20.5-60.0 [facility] Comment on above: Performed By: #### S EDR #### [facility] [address] [place] [address] Dr. Niurka Blount MANUAL DIFF REQ NO Normal [facility] Comment on above: Performed By: #### S EDR #### [facility] [address] [place] [address] Dr. Niurka Blount MCH (RBC) [Entitic mass] 30.5 pg Normal 26.7-34.0 [facility] Comment on above: Performed By: #### S EDR #### [facility] [address] [address] [address] Niurka Blount MCHC (RBC) [Mass/Vol] 36.1 g/dL Critically high 29.9-35.2 [facility] Comment on above: Performed By: #### S EDR #### [facility] [address] [address] [address] Niurka Blount MCV (RBC) [Entitic vol] 84.6 fL Normal 81.0-99.0 [facility] Comment on above: Performed By: #### S EDR #### [facility] [address] [address] [address] Niurka Blount MONO # 0.6 103/ul Normal 0.3-0.8 [facility] Comment on above: Performed By: #### S EDR #### [facility] [address] [address] [address] Niurka Blount Monocytes/100 WBC (Bld) 5.6 % Normal 1.7-12.0 [facility] Comment on above: Performed By: #### S EDR #### [facility] [address] [address] [address] Niurka Blount NEUT # 8.5 103/ul Critically high 1.4-6.5 [facility] Comment on above: Performed By: #### S EDR #### [facility] [address] [address] [address] Niurka Blount Neutrophils/100 WBC (Bld) 81.2 % Critically high 43.0-75.0 [facility] Comment on above: Performed By: #### S EDR #### [facility] [address] [address] [address] Niurka Blount Platelet mean volume (Bld) [Entitic vol] 10.6 fL Normal 9.5-13.5 [facility] Comment on above: Performed By: #### S EDR #### [facility] [address] [address] [address] Niurka Blount PLT 277 103/ul Normal 150-450 [facility] Comment on above: Performed By: #### S EDR #### [facility] [address] [address] [address] Niurka Blount RBC 4.75 106/ul Normal 4.20-5.40 [facility] Comment on above: Performed By: #### S EDR #### [facility] [address] [place] [address] Dr. Niurka Blount WBC 10.5 103/ul Normal 4.0-11.0 [facility] Comment on above: Performed By: #### S EDR #### [facility] [address] [place] [address] Dr. Niurka Bluont CRPon 07-17-2022 CRP [Mass/Vol] mg/L Normal <=1.0 [facility] Comment on above: Performed By: #### C MVM #### [facility] [address] [place] [address] ABD/PELV W CONon 07-17-20 CT ABD/PELV W CON EXAM: CT ABD/PELV W CON REASON FOR EXAM: Female, 31 years, GENERALIZED ABDOMINAL PAIN. TECHNIQUE: Computed tomography of the abdomen and pelvis is performed in the axial projection from the lung bases to the pubic symphysis. Sagittal and coronal reconstructed images are performed. Dose reduction techniques were achieved by using automated exposure control and/or adjustment of mA and/or KVP according to patient size and/or use of iterative reconstruction technique. A total of 100 mL Omnipaque 300 IV contrast was given. Study was performed without oral contrast. COMPARISON: None. FINDINGS: Lung bases: The lung bases are clear. There is no pleural effusion. The visualized portions of the heart are unremarkable. Liver: The liver is normal. Gallbladder: The gallbladder is normal. Spleen: The spleen is normal. Pancreas: The pancreas is normal. Adrenal glands: The adrenal glands are normal bilaterally. Right kidney: The kidney is normal in size. There is no renal calculus or hydronephrosis. Left kidney: The kidney is normal in size. There is no renal calculus or hydronephrosis. Stomach: The stomach is normal. Small bowel: There is some fluid distention of small bowel loops in the midabdomen. No high-grade small bowel obstruction. No small bowel wall thickening or enhancement. Large bowel: The colon is normal. Appendix: The appendix is visualized, and is normal. Aorta: The aorta is normal. IVC: The IVC is normal. Retroperitoneum: Normal retroperitoneum. Bladder: The bladder is normal. Pelvic organs: Normal uterus. There is a 2.7 cm right ovarian cyst. Abdominal wall: Normal abdominal wall. Osseous structures: Normal bony structures. IMPRESSION: No small bowel obstruction or acute renal pathology. There is some fluid distention of the small bowel mid abdomen, without wall thickening or adjacent inflammatory changes. Right ovarian cyst. Electronically authenticated by: VANNA GARLAND Date: 2022-07-17 18:12 Normal [facility] URINE PROFILEon 2 Bilirubin Ql (U) Negative Normal NEGATIVE [facility] Comment on above: Performed By: #### E RUR #### [facility] [address] [place] [address] Dr. Niurka Blount Clarity (U) CLEAR Normal CLEAR [facility] Comment on above: Performed By: #### E RUR #### [facility] [address] [place] [address] Dr. Niurka Blount Color (U) LT. YELLOW Normal YELLOW [facility] Comment on above: Performed By: #### E RUR #### [facility] [address] [place] [address] Dr. Niurka Blount ERULUCYD A micrscopic examination will be performed if indicated. Normal [facility] Comment on above: Performed By: #### E RUR #### [facility] [address] [place] [address] Dr. Niurka Blount Glucose Ql (U) Negative Normal NEGATIVE [facility] Comment on above: Performed By: #### E RUR #### [facility] [address] [place] [address] Dr. Niurka Blount Hemoglobin Ql (U) Negative Normal NEGATIVE [facility] Comment on above: Performed By: #### E RUR #### [facility] [address] [place] [address] Dr. Niurka Blount Ketones Ql (U) Negative Normal NEGATIVE [facility] Comment on above: Performed By: #### E RUR #### [facility] [address] [place] [address] Dr. Niurka Blount LEUKOCYTES Negative Normal NEGATIVE [facility] Comment on above: Performed By: #### E RUR #### [facility] [address] [place] [address] Dr. Niurka Blount Nitrite Ql (U) Negative Normal NEGATIVE [facility] Comment on above: Performed By: #### E RUR #### [facility] [address] [place] [address] Dr. Niurka Blount pH (U) 6.0 [pH] Normal 5-9 [facility] Comment on above: Performed By: #### E RUR #### [facility] [address] [place] [address] Dr. Niurka Blount SPEC GRAVITY 1.010 Normal 1.005-<=1.025 [facility] Comment on above: Performed By: #### E RUR #### [facility] [address] [place] [address] Dr. Niurka Blount UA PROTEIN Negative Normal NEGATIVE/ TRACE [facility] Comment on above: Performed By: #### E RUR #### [facility] [address] [place] [address] Dr. Niurka Blount UR MICRO IND NOT INDICATED Normal [facility] Comment on above: Performed By: #### E RUR #### [facility] [address] [place] [address] Dr. Niurka Blount Urobilinogen Qn (U) 0.2 {David'U}/dL Normal 0.2 - 1. 0 [facility] Comment on above: Performed By: #### E RUR #### [facility] [address] [place] [address] Dr. Niurka Blount LACTATE/LACTIC ACIDon 2021 Lactate [Moles/Vol] 1.6 mmol/L Normal 0.4-1.9 [facility] Comment on above: Performed By: #### E RUR #### [facility] [address] [place] [address] Dr. Niurka Blount LIPASEon 07-17-2022 Lipase [Catalytic activity/Vol] 105.0 U/L Normal 73.0-393.0 [facility] Comment on above: Performed By: #### C MVM #### [facility] [address] [place] [address] Dr. Niurka Blount PREG HCG QUALon 07-17-2022 , QUAL Negative Normal NEGATIVE [facility] Comment on above: Performed By: #### P REG #### [facility] [address] [place] [address] Dr. Niurka Blount PROF 14(COMP METB)on 022 Albumin [Mass/Vol] 4.4 g/dL Normal 3.4-5.0 [facility] Comment on above: Performed By: #### C MVM #### [facility] [address] [place] [address] Dr. Niurka Blount Albumin/Globulin [Mass ratio] 1.4 {ratio} Normal [facility] Comment on above: Performed By: #### C MVM #### [facility] [address] [place] [address] Dr. Niurka Blount ALP [Catalytic activity/Vol] 82 U/L Normal 46-116 [facility] Comment on above: Performed By: #### C MVM #### [facility] [address] [place] [address] Dr. Niurka Blount ALT [Catalytic activity/Vol] 16 U/L Normal 14-59 [facility] Comment on above: Performed By: #### C MVM #### [facility] [address] [place] [address] Dr. Niurka Blount Anion gap [Moles/Vol] 11.6 mmol/L Normal [facility] Comment on above: Performed By: #### C MVM #### [facility] [address] [place] [address] Dr. Niurka Blount AST [Catalytic activity/Vol] 7 U/L Critically low 15-37 [facility] Comment on above: Performed By: #### C MVM #### [facility] [address] [place], [place] [address] Dr. Niurka Blount Bilirubin [Mass/Vol] 0.6 mg/dL Normal 0.2-1.0 [facility] Comment on above: Performed By: #### C MVM #### [facility] [address] [place] [address] Dr. Niurka Blount Calcium [Mass/Vol] 8.8 mg/dL Normal 8.5-10.1 [facility] Comment on above: Performed By: #### C MVM #### [facility] [address] [place] [address] Dr. Niurka Blount Chloride [Moles/Vol] 103 mmol/L Normal 98-107 [facility] Comment on above: Performed By: #### C MVM #### [facility] [address] [place] [address] Dr. Niurka Blount CO2 [Moles/Vol] 24.4 mmol/L Normal 21.0-32.0 [facility] Comment on above: Performed By: #### C MVM #### [facility] [address] [place] [address] Dr. Niurka Blount Creatinine [Mass/Vol] 0.67 mg/dL Normal 0.55-1.02 [facility] Comment on above: Performed By: #### C MVM #### [facility] [address] [place] [address] Dr. Niurka Blount EGFR-AF [place] >60 Normal >=60 [facility] Comment on above: Performed By: #### C MVM #### [facility] [address] [place] [address] Dr. Niurka Blount EGFR-NON AF [place] >60 Normal >=60 [facility] Comment on above: Performed By: #### C MVM #### [facility] [address] [place] [address] Dr. Niurka Blount Globulin (S) [Mass/Vol] 3.1 g/dL Normal [facility] Comment on above: Performed By: #### C MVM #### [facility] [address] [place] [address] Dr. Niurka Blount Glucose [Mass/Vol] 109 mg/dL Critically high 74-106 [facility] Comment on above: Performed By: #### C MVM #### [facility] [address] [address] [address] Niurka Blount Potassium [Moles/Vol] 4.0 mmol/L Normal 3.5-5.1 [facility] Comment on above: Performed By: #### C MVM #### [facility] [address] [place] [address] Dr. Niurka Blount Protein [Mass/Vol] 7.5 g/dL Normal 6.4-8.2 [facility] Comment on above: Performed By: #### C MVM #### [facility] [address] [place] [address] Dr. Niurka Blount Sodium [Moles/Vol] 135 mmol/L Critically low 136-145 [facility] Comment on above: Performed By: #### C MVM #### [facility] [address] [place] [address] Dr. Niurka Blount Urea nitrogen [Mass/Vol] 8.0 mg/dL Normal 7.0-18.0 [facility] Comment on above: Performed By: #### C MVM #### [facility] [address] [place] [address] Dr. Niurka Blount Urea nitrogen/Creatinine [Mass ratio] 11.9 mg/mg Normal [facility] Comment on above: Performed By: #### C MVM #### [facility] [address] [place] [address] Dr. Niurka Blount SED RATE WESTERGREN 2021 SED RATE 3 mm/hr Normal <=20 [facility] Comment on above: Performed By: #### S EDR #### [facility] [address] [place] [address] Dr. Niurka Blount CBC AUTO DIFFon 07-13-2022 BASO # 0.1 103/ul Normal 0.0-0.1 [facility] Comment on above: Performed By: #### S EDR #### [facility] [address] [place] [address] Dr. Niurka Blount Basophils/100 WBC (Bld) 0.7 % Normal 0.2-2.0 [facility] Comment on above: Performed By: #### S EDR #### [facility] [address] [place] [address] Dr. Niurka Blount EO # 0.1 103/ul Normal 0.0-0.7 [facility] Comment on above: Performed By: #### S EDR #### [facility] [address] [address] [address] Niurka Blount Eosinophils/100 WBC (Bld) 1.3 % Normal 0.9-7.0 [facility] Comment on above: Performed By: #### S EDR #### [facility] [address] [place] [address] Dr. Niurka Blount Erythrocyte distribution width (RBC) [Ratio] 11.3 % Normal 11.0-15.0 [facility] Comment on above: Performed By: #### S EDR #### [facility] [address] [place] [address] Dr. Niurka Blount Hematocrit (Bld) [Volume fraction] 40.4 % Normal 36.0-48.0 [facility] Comment on above: Performed By: #### S EDR #### [facility] [address] [place] [address] Dr. Niurka Blount Hemoglobin (Bld) [Mass/Vol] 14.2 g/dL Normal 12.0-16.0 [facility] Comment on above: Performed By: #### S EDR #### [facility] [address] [place] [address] Dr. Niurka Blount IG # 0.02 10e3/ul Normal 0.00-0.03 [facility] Comment on above: Performed By: #### S EDR #### [facility] [address] [place] [address] Dr. Niurka Blount IG % 0.2 % Normal 0.0-0.5 [facility] Comment on above: Performed By: #### S EDR #### [facility] [address] [address] [address] Niurka Blount LYMPH # 1.9 103/ul Normal 1.2-3.8 [facility] Comment on above: Performed By: #### S EDR #### [facility] [address] [place] [address] Dr. Niurka Blount Lymphocytes/100 WBC (Bld) 22.1 % Normal 20.5-60.0 [facility] Comment on above: Performed By: #### S EDR #### [facility] [address] [place] [address] Dr. Niurka Blount MANUAL DIFF REQ NO Normal [facility] Comment on above: Performed By: #### S EDR #### [facility] [address] [place] [address] Dr. Niurka Blount MCH (RBC) [Entitic mass] 30.0 pg Normal 26.7-34.0 [facility] Comment on above: Performed By: #### S EDR #### [facility] [address] [place] [address] Dr. Niurka Blount MCHC (RBC) [Mass/Vol] 35.1 g/dL Normal 29.9-35.2 [facility] Comment on above: Performed By: #### S EDR #### [facility] [address] [place] [address] Dr. Niurka Blount MCV (RBC) [Entitic vol] 85.4 fL Normal 81.0-99.0 [facility] Comment on above: Performed By: #### S EDR #### [facility] [address] [place] [address] Dr. Niurka Blount MONO # 0.6 103/ul Normal 0.3-0.8 [facility] Comment on above: Performed By: #### S EDR #### [facility] [address] [place] [address] Dr. Niurka Blount Monocytes/100 WBC (Bld) 6.8 % Normal 1.7-12.0 [facility] Comment on above: Performed By: #### S EDR #### [facility] [address] [place] [address] Dr. Niurka Blount NEUT # 6.0 103/ul Normal 1.4-6.5 [facility] Comment on above: Performed By: #### S EDR #### [facility] [address] [place] [address] Dr. Niurka Blount Neutrophils/100 WBC (Bld) 68.9 % Normal 43.0-75.0 [facility] Comment on above: Performed By: #### S EDR #### [facility] [address] [place] [address] Dr. Niurka Blount Platelet mean volume (Bld) [Entitic vol] 10.7 fL Normal 9.5-13.5 [facility] Comment on above: Performed By: #### S EDR #### [facility] [address] [place] [address] Dr. Niurka Blount PLT 247 103/ul Normal 150-450 [facility] Comment on above: Performed By: #### S EDR #### [facility] [address] [place] [address] Dr. Niurka Blount RBC 4.73 106/ul Normal 4.20-5.40 [facility] Comment on above: Performed By: #### S EDR #### [facility] [address] [place] [address] Dr. Niurka Blount WBC 8.7 103/ul Normal 4.0-11.0 [facility] Comment on above: Performed By: #### S EDR #### [facility] [address] [place] [address] Dr. Niurka Blount FREE T3on 07-13-2022 FREE T3 2.53 pg/mlL Normal 2.18-3.98 [facility] Comment on above: Performed By: #### E RUR #### [facility] [address] [place] [address] Dr. Niurka Blount PROF 14(COMP METB)on 022 Albumin [Mass/Vol] 4.3 g/dL Normal 3.4-5.0 [facility] Comment on above: Performed By: #### E RUR #### [facility] [address] [place] [address] Dr. Niurka Blount Albumin/Globulin [Mass ratio] 1.5 {ratio} Normal [facility] Comment on above: Performed By: #### E RUR #### [facility] [address] [place] [address] Dr. Niurka Blount ALP [Catalytic activity/Vol] 79 U/L Normal 46-116 [facility] Comment on above: Performed By: #### E RUR #### [facility] [address] [place] [address] Dr. Niurka Blount ALT [Catalytic activity/Vol] 14 U/L Normal 14-59 [facility] Comment on above: Performed By: #### E RUR #### [facility] [address] [place] [address] Dr. Niurka Blount Anion gap [Moles/Vol] 11.5 mmol/L Normal [facility] Comment on above: Performed By: #### E RUR #### [facility] [address] [place] [address] Dr. Niurka Blount AST [Catalytic activity/Vol] 10 U/L Critically low 15-37 [facility] Comment on above: Performed By: #### E RUR #### [facility] [address] [place] [address] Dr. Niurka Blount Bilirubin [Mass/Vol] 0.4 mg/dL Normal 0.2-1.0 [facility] Comment on above: Performed By: #### E RUR #### [facility] [address] [place] [address] Dr. Niurka Blount Calcium [Mass/Vol] 8.8 mg/dL Normal 8.5-10.1 [facility] Comment on above: Performed By: #### E RUR #### [facility] [address] [place] [address] Dr. Niurka Blount Chloride [Moles/Vol] 103 mmol/L Normal 98-107 [facility] Comment on above: Performed By: #### E RUR #### [facility] [address] [place] [address] Dr. Niurka Blount CO2 [Moles/Vol] 26.2 mmol/L Normal 21.0-32.0 [facility] Comment on above: Performed By: #### E RUR #### [facility] [address] [place] [address] Dr. Niurka Blount Creatinine [Mass/Vol] 0.71 mg/dL Normal 0.55-1.02 [facility] Comment on above: Performed By: #### E RUR #### [facility] [address] [place] [address] Dr. Niurka Blount EGFR-AF [place] >60 Normal >=60 [facility] Comment on above: Performed By: #### E RUR #### [facility] [address] [place] [address] Dr. Niurka Blount EGFR-NON AF [place] >60 Normal >=60 [facility] Comment on above: Performed By: #### E RUR #### [facility] [address] [place] [address] Dr. Niurka Blount Globulin (S) [Mass/Vol] 2.9 g/dL Normal [facility] Comment on above: Performed By: #### E RUR #### [facility] [address] [place] [address] Dr. Niurka Blount Glucose [Mass/Vol] 119 mg/dL Critically high 74-106 [facility] Comment on above: Performed By: #### E RUR #### [facility] [address] [place] [address] Dr. Niurka Blount Potassium [Moles/Vol] 3.7 mmol/L Normal 3.5-5.1 [facility] Comment on above: Performed By: #### E RUR #### [facility] [address] [place] [address] Dr. Niurka Blount Protein [Mass/Vol] 7.2 g/dL Normal 6.4-8.2 [facility] Comment on above: Performed By: #### E RUR #### [facility] [address] [place] [address] Dr. Niurka Blount Sodium [Moles/Vol] 137 mmol/L Normal 136-145 [facility] Comment on above: Performed By: #### E RUR #### [facility] [address] [place] [address] Dr. Niurka Blount Urea nitrogen [Mass/Vol] 11.0 mg/dL Normal 7.0-18.0 [facility] Comment on above: Performed By: #### E RUR #### [facility] [address] [place] [address] Dr. Niurka Blount Urea nitrogen/Creatinine [Mass ratio] 15.5 mg/mg Normal [facility] Comment on above: Performed By: #### E RUR #### [facility] [address] [place] [address] Dr. Niurka Blount TSHon 07-13-2022 TSH 0.543 uIU/mL Normal 0.358-3.740 [facility] Comment on above: Performed By: #### E RUR #### [facility] [address] [place] [address] Dr. Niurka Blount QUANTIFERON TB GOLD PLUSon 0 05-01-2022 QuantiFERON Criteria Comment [facility] Comment on above: Result Comment: Morris tiFERON-TB Gold Plus is a qualitative indirect test for M tuberculosis infection (including disease) and is intended for use in conjunction with risk assessment, radiography, and other medical and diagnostic evaluations. The QuantiFERON-TB Gold Plus result is determined by subtracting the Nil value from either TB antigen (Ag) value. The Mitogen tube serves as a control for the test. Performed By: #### Q NTTB #### [facility] [address] [place] [address] Dr. Niurka Blount QuantiFERON Incubation Incubation performed. Normal [facility] Comment on above: Performed By: #### Q NTTB #### [facility] [address] [place] [address] Dr. Niurka Blount QuantiFERON Mitogen Value >10.00 Normal [facility] Comment on above: Performed By: #### Q NTTB #### [facility] [address] [place] [address] Dr. Niurka Blount QuantiFERON Nil Value 0.02 IU/mL Normal [facility] Comment on above: Performed By: #### Q NTTB #### [facility] [address] [place] [address] Dr. Niurka lBount QuantiFERON TB1 Ag Value 0.02 IU/mL Normal [facility] Comment on above: Performed By: #### Q NTTB #### [facility] [address] [place] [address] Dr. Niurka Blount QuantiFERON TB2 Ag Value 0.02 IU/mL Normal [facility] Comment on above: Performed By: #### Q NTTB #### [facility] [address] [place] [address] Dr. Niurka Blount QuantiFERON-TB Gold Plus Negative Normal Negative [facility] Comment on above: Result Comment: No r esponse to M tuberculosis antigens detected. Infection with M tuberculosis is unlikely, but high risk individuals should be considered for additional testing (ATS/IDSA/CDC Clinical Practice Guidelines, 2017). The reference range is an Antigen minus Nil result of <0.35 IU/mL. Chemiluminescence immunoassay methodology Performed By: #### Q NTTB #### [facility] [address] [place] [address] Dr. Niurka Blount HEP B COREon 04-29-2022 Hep B Core Ab, Tot Negative Normal Negative [facility] Comment on above: Performed By: #### E RUR #### [facility] [address] [place] [address] Dr. Niurka Blount HEP B SURFACE ANTIGEN SCREEN on 04-29-2022 HBsAg Screen Negative Normal Negative [facility] Comment on above: Performed By: #### E RUR #### [facility] [address] [place] [address] Dr. Niurka Blount CBC AUTO DIFFon 04-27-2022 BASO # 0.0 103/ul Normal 0.0-0.1 [facility] Comment on above: Performed By: #### E RUR #### [facility] [address] [place] [address] Dr. Niurka Blount Basophils/100 WBC (Bld) 0.5 % Normal 0.2-2.0 [facility] Comment on above: Performed By: #### E RUR #### [facility] [address] [place] [address] Dr. Niurka Blount EO # 0.1 103/ul Normal 0.0-0.7 [facility] Comment on above: Performed By: #### E RUR #### [facility] [address] [place] [address] Dr. Niurka Blount Eosinophils/100 WBC (Bld) 1.5 % Normal 0.9-7.0 [facility] Comment on above: Performed By: #### E RUR #### [facility] [address] [place] [address] Dr. Niurka Blount Erythrocyte distribution width (RBC) [Ratio] 11.9 % Normal 11.0-15.0 [facility] Comment on above: Performed By: #### E RUR #### [facility] [address] [place] [address] Dr. Niurka Blount Hematocrit (Bld) [Volume fraction] 39.2 % Normal 36.0-48.0 [facility] Comment on above: Performed By: #### E RUR #### [facility] [address] [place] [address] Dr. Niurka Blount Hemoglobin (Bld) [Mass/Vol] 13.9 g/dL Normal 12.0-16.0 [facility] Comment on above: Performed By: #### E RUR #### [facility] [address] [place] [address] Dr. Niurka Blount IG # 0.03 10e3/ul Normal 0.00-0.03 [facility] Comment on above: Performed By: #### E RUR #### [facility] [address] [place] [address] Dr. Niurka Blount IG % 0.4 % Normal 0.0-0.5 [facility] Comment on above: Performed By: #### E RUR #### [facility] [address] [place] [address] Dr. Niurka Blount LYMPH # 2.2 103/ul Normal 1.2-3.8 [facility] Comment on above: Performed By: #### E RUR #### [facility] [address] [place] [address] Dr. Niurka Blount Lymphocytes/100 WBC (Bld) 26.3 % Normal 20.5-60.0 [facility] Comment on above: Performed By: #### E RUR #### [facility] [address] [place] [address] Dr. Niurka Blount MANUAL DIFF REQ NO Normal [facility] Comment on above: Performed By: #### E RUR #### [facility] [address] [place] [address] Dr. Niurka Blount MCH (RBC) [Entitic mass] 30.5 pg Normal 26.7-34.0 [facility] Comment on above: Performed By: #### E RUR #### [facility] [address] [place] [address] Dr. Niurka Blount MCHC (RBC) [Mass/Vol] 35.5 g/dL Critically high 29.9-35.2 [facility] Comment on above: Performed By: #### E RUR #### [facility] [address] [place] [address] Dr. Niurka Blount MCV (RBC) [Entitic vol] 86.2 fL Normal 81.0-99.0 [facility] Comment on above: Performed By: #### E RUR #### [facility] [address] [place] [address] Dr. Niurka Blount MONO # 0.6 103/ul Normal 0.3-0.8 [facility] Comment on above: Performed By: #### E RUR #### [facility] [address] [place] [address] Dr. Niurka Blount Monocytes/100 WBC (Bld) 7.2 % Normal 1.7-12.0 [facility] Comment on above: Performed By: #### E RUR #### [facility] [address] [place] [address] Dr. Niurka Blount NEUT # 5.4 103/ul Normal 1.4-6.5 [facility] Comment on above: Performed By: #### E RUR #### [facility] [address] [place] [address] Dr. Niurka Blount Neutrophils/100 WBC (Bld) 64.1 % Normal 43.0-75.0 [facility] Comment on above: Performed By: #### E RUR #### [facility] [address] [place] [address] Dr. Niurka Blount Platelet mean volume (Bld) [Entitic vol] 10.4 fL Normal 9.5-13.5 [facility] Comment on above: Performed By: #### E RUR #### [facility] [address] [place] [address] Dr. Niurka Blount PLT 235 103/ul Normal 150-450 [facility] Comment on above: Performed By: #### E RUR #### [facility] [address] [place] [address] Dr. Niurka Blount RBC 4.55 106/ul Normal 4.20-5.40 [facility] Comment on above: Performed By: #### E RUR #### [facility] [address] [place] [address] Dr. Niurka Blount WBC 8.5 103/ul Normal 4.0-11.0 [facility] Comment on above: Performed By: #### E RUR #### [facility] [address] [place] [address] Dr. Niurka Blount CRPon 04-27-2022 CRP [Mass/Vol] mg/L Normal <=1.0 [facility] Comment on above: Performed By: #### C MP, CRP #### [facility] [address] [place] [address] Dr. Niurka Blount PROF 14(COMP METB)on 022 Albumin [Mass/Vol] 4.2 g/dL Normal 3.4-5.0 [facility] Comment on above: Performed By: #### C MP, CRP #### [facility] [address] [place] [address] Dr. Niurka Blount Albumin/Globulin [Mass ratio] 1.4 {ratio} Normal [facility] Comment on above: Performed By: #### C MP, CRP #### [facility] [address] [place] [address] Dr. Niurka Blount ALP [Catalytic activity/Vol] 80 U/L Normal 46-116 [facility] Comment on above: Performed By: #### C MP, CRP #### [facility] [address] [address] [address] Niurka Blount ALT [Catalytic activity/Vol] 26 U/L Normal 14-59 [facility] Comment on above: Performed By: #### C MP, CRP #### [facility] [address] [place] [address] Dr. Niurka Blount Anion gap [Moles/Vol] 11.4 mmol/L Normal [facility] Comment on above: Performed By: #### C MP, CRP #### [facility] [address] [place] [address] Dr. Niurka Blount AST [Catalytic activity/Vol] 13 U/L Critically low 15-37 [facility] Comment on above: Performed By: #### C MP, CRP #### [facility] [address] [place] [address] Dr. Niurka Blount Bilirubin [Mass/Vol] 0.4 mg/dL Normal 0.2-1.0 [facility] Comment on above: Performed By: #### C MP, CRP #### [facility] [address] [place] [address] Dr. Niurka Blount Calcium [Mass/Vol] 8.8 mg/dL Normal 8.5-10.1 [facility] Comment on above: Performed By: #### C MP, CRP #### [facility] [address] [place] [address] Dr. Niurka Blount Chloride [Moles/Vol] 106 mmol/L Normal 98-107 [facility] Comment on above: Performed By: #### C MP, CRP #### [facility] [address] [place] [address] Dr. Niurka Blount CO2 [Moles/Vol] 26.5 mmol/L Normal 21.0-32.0 [facility] Comment on above: Performed By: #### C MP, CRP #### [facility] [address] [place] [address] Dr. Niurka Blount Creatinine [Mass/Vol] 0.80 mg/dL Normal 0.55-1.02 [facility] Comment on above: Performed By: #### C MP, CRP #### [facility] [address] [place] [address] Dr. Niurka Blount EGFR-AF [place] >60 Normal >=60 [facility] Comment on above: Performed By: #### C MP, CRP #### [facility] [address] [place] [address] Dr. Niurka Blount EGFR-NON AF [place] >60 Normal >=60 [facility] Comment on above: Performed By: #### C MP, CRP #### [facility] [address] [place] [address] Dr. Niurka Blount Globulin (S) [Mass/Vol] 3.0 g/dL Normal [facility] Comment on above: Performed By: #### C MP, CRP #### [facility] [address] [place] [address] Dr. Niurka Blount Glucose [Mass/Vol] 113 mg/dL Critically high 74-106 [facility] Comment on above: Performed By: #### C MP, CRP #### [facility] [address] [place] [address] Dr. Niurka Blount Potassium [Moles/Vol] 3.9 mmol/L Normal 3.5-5.1 [facility] Comment on above: Performed By: #### C MP, CRP #### [facility] [address] [place] [address] Dr. Niurka Blount Protein [Mass/Vol] 7.2 g/dL Normal 6.4-8.2 [facility] Comment on above: Performed By: #### C MP, CRP #### [facility] [address] [place] [address] Dr. Niurka Blount Sodium [Moles/Vol] 140 mmol/L Normal 136-145 [facility] Comment on above: Performed By: #### C MP, CRP #### [facility] [address] [address] [address] Niurka Blount Urea nitrogen [Mass/Vol] 9.0 mg/dL Normal 7.0-18.0 [facility] Comment on above: Performed By: #### C MP, CRP #### [facility] [address] [address] [address] Niurka Blount Urea nitrogen/Creatinine [Mass ratio] 11.2 mg/mg Normal [facility] Comment on above: Performed By: #### C MP, CRP #### [facility] [address] [place] [address] Dr. Niurka Blount SED RATE [facility] 2021 SED RATE 2 mm/hr Normal <=20 [facility] Comment on above: Performed By: #### E RUR #### [facility] [address] [place] [address] Dr. Niurka Blount MRI CSPINE WO CONon 04-06-20 MRI CSPINE WO CON EXAMINATION: MRI CSPINE WO CON HISTORY: Cervical disc disorder ; chronic cervical spine pain increasing in severity; bilateral upper extremity radiculopathy COMPARISON: No relevant comparison available. TECHNIQUE: A variety of imaging planes and parameters were utilized for visualization of suspected pathology. FINDINGS: CRANIOCERVICAL AREA: Cerebellar tonsils extend to, but not below, the foramen magnum. PARASPINAL AREA: Normal with no visible mass. BONES: Slight reversal of the normal lordotic curvature. No fracture, bone lesion, or abnormal bone marrow signal. CORD: Normal caliber, contour, and signal intensity. CERVICAL DISC LEVELS: C2-C3: Early degenerative disc disease is present without focal protrusion or neural impingement. C3-C4: Early degenerative disc disease is present without focal protrusion or neural impingement. C4-C5: Early degenerative disc disease is present without focal protrusion or neural impingement. C5-C6: Mild-moderate central canal narrowing and mild bilateral foramen narrowing secondary to moderate diffuse disc bulging and mild disc height reduction. No significant degenerative facet arthropathy. C6-C7: Mild-moderate central canal narrowing and mild bilateral foramen narrowing secondary to moderate diffuse disc bulging and mild disc height reduction. No significant degenerative facet arthropathy. C7-T1:. No significant disc/facet abnormality, spinal stenosis, or foraminal stenosis. IMPRESSION: 1. C5-C6, C6-C7 moderate degenerative disc disease. There is moderate central canal narrowing, but ample CSF still surrounding the spinal cord. Mild bilateral foramen narrowing. The amount of narrowing may possibly change with head position and contribute to patient's symptoms. 2. Slight reversal of normal cervical lordotic curvature; positioning versus muscle spasm. Electronically authenticated by: DEANN THOMASON Date: 2022-04-06 11:21 Normal [facility] XR CSPINE MIN 4 VIEWSon 01-12 XR CSPINE MIN 4 VIEWS EXAMINATION: XR CSPINE MIN 4 VIEWS HISTORY: Neck pain COMPARISON: No relevant comparison available. FINDINGS: BONES: Reversal of normal cervical lordosis. No acute fracture or spondylolisthesis. Mild to moderate degenerative spondylosis. Mild facet osteoarthropathy DISC SPACES: Moderate to severe disc space narrowing most significant C5-C6 and C6-C7 PARASPINOUS: Negative. No paraspinous abnormality is seen. OTHER: Negative. IMPRESSION: Degenerative changes most significant at C6-C7 Electronically authenticated by: ISABEL CHAVEZ Date: 2022-02-08 17:24 Normal [facility] Albumin [Mass/volume] in Ser um or PlasmaOrdered By: Piter Mahaarj on 09-18-2021 Albumin [Mass/Vol] 4.3 g/dL 3.2-5.5 [facility] Basophils Auto (Bld) [#/Vol] Ordered By: Piter Maharaj on 09-18-2021 Basophils (Bld) [#/Vol] 0.0 10*3/uL 0.0-0.2 [facility] Basophils/100 WBC Auto (Bld) Ordered By: Piter Maharaj on 09-18-2021 Basophils/100 WBC (Bld) 0.7 % . [facility] C reactive protein [Mass/vol ume] in Serum or PlasmaOrdered By: Piter Maharaj on 09-18-2021 CRP [Mass/Vol] 1.1 mg/dL 0.0-1.0 [facility] Creatinine and Glomerular fi ltration rate.predicted panel (S/P/Bld)Ordered By: Piter Maharaj on 09-18-2021 Creatinine [Mass/Vol] 0.73 mg/dL 0.44-1.03 [facility] Eosinophils Auto (Bld) [#/Vo l]Ordered By: Piter Maharaj on 09-18-2021 Eosinophils (Bld) [#/Vol] 0.1 10*3/uL 0.0-0.45 [facility] Eosinophils/100 WBC Auto (Bl d)Ordered By: Piter Maharaj on 09-18-2021 Eosinophils/100 WBC (Bld) 1.9 % . [facility] Erythrocyte distribution wid th Auto (RBC) [Ratio]Ordered By: Piter Maharaj on 09-18-2021 Erythrocyte distribution width (RBC) [Ratio] 12.0 % 11.9-15.3 [facility] Erythrocyte sedimentation ra te by Photometric methodOrdered By: Piter Maharaj on 09-18-2021 ESR Photometric method (Bld) [Velocity] 3 mm/hr 0-19 [facility] Estimated glomerular filtrat ion rate (GFR) non- AmericanOrdered By: Piter Maharaj on 09-18-2021 GFR/1.73 sq M.predicted among non-blacks MDRD (S/P/Bld) [Vol rate/Area] > 60 mL/Min [facility] Globulin Calc (S) [Mass/Vol] Ordered By: Piter Maharaj on 09-18-2021 Globulin (S) [Mass/Vol] 2.2 g/dL [facility] Hematocrit Auto (Bld) [Volum e fraction]Ordered By: Piter Maharaj on 09-18-2021 Hematocrit (Bld) [Volume fraction] 42.2 % 34.0-46.4 [facility] Hemoglobin [Mass/volume] in BloodOrdered By: Piter Maharaj on 09-18-2021 Hemoglobin (Bld) [Mass/Vol] 14.6 g/dL 11.8-15.4 [facility] - Hematology and Cell countsOrdered By: Piter Maharaj on 09-18-2021 Nucleated RBC/100 WBC (Bld) [Ratio] 0.1 % 0-0.5 [facility] Leukocytes [#/volume] in Blo od by Automated countOrdered By: Piter Maharaj on 09-18-2021 WBC (Bld) [#/Vol] 6.6 10*3/uL 4.5-11.0 [facility] Lymphocytes Auto (Bld) [#/Vo l]Ordered By: Piter Maharaj on 09-18-2021 Lymphocytes (Bld) [#/Vol] 2.3 10*3/uL 1.00-4.8 [facility] Lymphocytes/100 WBC Auto (Bl d)Ordered By: Piter Maharaj on 09-18-2021 Lymphocytes/100 WBC (Bld) 34.0 % . [facility] MCH Auto (RBC) [Entitic mass ]Ordered By: Piter Maharaj on 09-18-2021 MCH (RBC) [Entitic mass] 30.0 pg 24.7-34.3 [facility] MCHC Auto (RBC) [Mass/Vol]Or dered By: Piter Maharaj on 09-18-2021 MCHC (RBC) [Mass/Vol] 34.6 g/dL 32.0-35.0 [facility] MCV Auto (RBC) [Entitic vol] Ordered By: Piter Maharaj on 09-18-2021 MCV (RBC) [Entitic vol] 86.6 fL 80-100 [facility] Monocytes Auto (Bld) [#/Vol] Ordered By: Piter Maharaj on 09-18-2021 Monocytes (Bld) [#/Vol] 0.5 10*3/uL 0.0-0.8 [facility] Monocytes/100 WBC Auto (Bld) Ordered By: Piter Maharaj on 09-18-2021 Monocytes/100 WBC (Bld) 8.2 % . [facility] Neutrophils Auto (Bld) [#/Vo l]Ordered By: Piter Maharaj on 09-18-2021 Neutrophils (Bld) [#/Vol] 3.7 10*3/uL 1.8-7.7 [facility] Neutrophils/100 WBC Auto (Bl d)Ordered By: Piter Maharaj on 09-18-2021 Neutrophils/100 WBC (Bld) 55.2 % . [facility] No Panel InformationOrdered By: Piter Maharaj on 09-18-2021 Estimated GFR () > 60 mL/Min [facility] Comment on above: GFR estimated refere nce range: According to KDOQI guidelines, <60 ml/min/1.73m2 is sufficient to diagnose a patient with chronic kidney disease. Pharmacy Creatinine Clearance (Chem 102.56 [facility] Platelet mean volume Auto (B ld) [Entitic vol]Ordered By: Piter Maharaj on 09-18-2021 Platelet mean volume (Bld) [Entitic vol] 8.8 fL 6.3-10.7 [facility] Platelets Auto (Bld) [#/Vol] Ordered By: Piter Maharaj on 09-18-2021 Platelets (Bld) [#/Vol] 222 10*3/uL 150-450 [facility] Protein [Mass/volume] in Ser um or PlasmaOrdered By: Piter Maharaj on 09-18-2021 Protein [Mass/Vol] 6.5 g/dL 6.1-7.9 [facility] RBC Auto (Bld) [#/Vol]Ordere d By: Piter Maharaj on 09-18-2021 RBC (Bld) [#/Vol] 4.87 10*6/uL 3.60-5.00 [facility] Serum or plasma alanine rodriguez otransferase measurement without P-5'-P (enzymatic activiOrdered By: Piter Maharaj on 09-18-2021 ALT No additional P-5'-P [Catalytic activity/Vol] 23 U/L 10-60 [facility] Serum or plasma albumin/glob ulin mass ratioOrdered By: Piter Maharaj on 09-18-2021 Albumin/Globulin [Mass ratio] 2.0 {ratio} [facility] Serum or plasma alkaline susan sphatase measurement (enzymatic activity/volume)Ordered By: Piter Maharaj on 09-18-2021 ALP [Catalytic activity/Vol] 84 U/L 32-92 [facility] Serum or plasma aspartate am inotransferase measurement (enzymatic activity/volume)Ordered By: Piter Maharaj on 09-18-2021 AST [Catalytic activity/Vol] 20 U/L 10-42 [facility] Serum or plasma calcium toni urement (mass/volume)Ordered By: Piter Maharaj on 09-18-2021 Calcium [Mass/Vol] 9.3 mg/dL 8.2-10.2 [facility] Serum or plasma chloride carina surement (moles/volume)Ordered By: Piter Maharaj on 09-18-2021 Chloride [Moles/Vol] 103 mmol/L 95-114 [facility] Serum or plasma glucose toni urement (mass/volume)Ordered By: Piter Maharaj on 09-18-2021 Glucose [Mass/Vol] 80 mg/dL 70-100 [facility] Comment on above: ADA recommended refe rence rangeRandom Glucose Reference Range is dependent on time and content of last meal. Glucose of more than 200 mg/dL in a nonstressed, ambulatory subject supports the diagnosis of Diabetes Mellitus. Serum or plasma potassium me asurement (moles/volume)Ordered By: Piter Maharaj on 09-18-2021 Potassium [Moles/Vol] 4.0 mmol/L 3.5-5.1 [facility] Serum or plasma sodium measu rement (moles/volume)Ordered By: Piter Maharaj on 09-18-2021 Sodium [Moles/Vol] 139 mmol/L 136-146 [facility] Serum or plasma total biliru bin measurement (mass/volume)Ordered By: Piter Maharaj on 09-18-2021 Bilirubin [Mass/Vol] 0.8 mg/dL 0.3-1.2 [facility] Serum or plasma total carbon dioxide measurement (moles/volume)Ordered By: Piter Maharaj on 09-18-2021 CO2 [Moles/Vol] 27.0 mmol/L 22.0-30.0 [facility] Serum or plasma urea nitroge n measurement (mass/volume)Ordered By: Piter Maharaj on 09-18-2021 Urea nitrogen [Mass/Vol] 14 mg/dL 05-04 [facility] ESR Westergren method (Bld) [Velocity]on 04-11-2020 ESR (Bld) [Velocity] 2 mm/h 032 [facility] Comment on above: Performed at: [address], [place] [id number] Director: Gerry Martinez PhD, Phone: [phone] Laboratory - Hematology and Cell countson 04-11-2020 WBC (Bld) [#/Vol] 5.0 10*3/uL 4.5-11.0 [facility] Vital Signs Date Time Vital Sign Value Performing Clinician Facility 04-04-2023 10:40-0400 Body height 157.48 cm Dutch Pereyra Other [facility] Other 04-04-2023 10:40-0400 Body mass index (BMI) [Ratio] 23.41 kg/m2 Dutch Pereyra Other [facility] Other 04-04-2023 10:40-0400 Body weight 58.06 kg Dutch Pereyra Other [facility] Other 04-04-2023 10:40-0400 Diastolic blood pressure 66 mm[Hg] Dutch Pereyra Other [facility] Other 04-04-2023 10:40-0400 Systolic blood pressure 104 mm[Hg] Dutch Pereyra Other [facility] Other 03-12-2023 13:15-0400 Body height 157.48 cm Piter Maharaj Other [facility] Other 03-12-2023 13:15-0400 Body mass index (BMI) [Ratio] 24.32 kg/m2 Piter Maharaj Other [facility] Other 03-12-2023 13:15-0400 Body weight 60.33 kg Piter Maharaj Other [facility] Other 03-12-2023 13:15-0400 Diastolic blood pressure 80 mm[Hg] Piter Maharaj Other [facility] Other 03-12-2023 13:15-0400 Systolic blood pressure 119 mm[Hg] Piter Maharaj Other [facility] Other 09-11-2022 14:15-0500 Body height 157.48 cm Piter Maharaj Other [facility] Other 09-11-2022 14:15-0500 Body mass index (BMI) [Ratio] 28.16 kg/m2 Piter Maharaj Other [facility] Other 09-11-2022 14:15-0500 Body weight 69.85 kg Piter Maharaj Other [facility] Other 09-11-2022 14:15-0500 Diastolic blood pressure 71 mm[Hg] Piter Maharaj Other [facility] Other 09-11-2022 14:15-0500 Systolic blood pressure 100 mm[Hg] Piter Maharaj Other [facility] Other 07-25-2022 11:45-0500 Body height 157.48 cm Piter Maharaj Other [facility] Other 07-25-2022 11:45-0500 Body mass index (BMI) [Ratio] 27.43 kg/m2 Piter Maharaj Other [facility] Other 07-25-2022 11:45-0500 Body weight 68.04 kg Piter Nicko Other Ku Other 07-25-2022 11:45-0500 Diastolic blood pressure 94 mm[Hg] Piter Nicko Other [facility] Other 07-25-2022 11:45-0500 Systolic blood pressure 132 mm[Hg] Piter Nicko Other [facility] Other 06-25-2022 15:25-0500 Diastolic blood pressure 83 mm[Hg] II Stoney Giles Work Phone: [facility] 06-25-2022 15:25-0500 Heart rate 60 /min II Stoney Giles Work Phone: [facility] 06-25-2022 15:25-0500 Systolic blood pressure 137 mm[Hg] II Stoney Giles Work Phone: [facility] 05-29-2022 14:06-0400 Body temperature 97.7 [degF] II Stoney Giles Work Phone: [facility] 05-29-2022 14:06-0400 Respiratory rate 18 /min II Stoney Giles Work Phone: [facility] 05-29-2022 14:06-0400 SaO2% (BldA) [Mass fraction] 95 % II Stoney Giles Work Phone: [facility] 05-23-2022 11:45-0400 Body height 157.48 cm Piter Maharaj Other [facility] Other 05-23-2022 11:45-0400 Body mass index (BMI) [Ratio] 28.35 kg/m2 Piter Nicko Other [facility] Other 05-23-2022 11:45-0400 Body weight 70.31 kg Piter Maharaj Other [facility] Other 04-25-2022 12:00-0400 Body height 157.48 cm Piter Maharaj Other [facility] Other 04-25-2022 12:00-0400 Body mass index (BMI) [Ratio] 28.16 kg/m2 Piter Nicko Other [facility] Other 04-25-2022 12:00-0400 Body weight 69.85 kg Piter Maharaj Other [facility] Other 10-30-2021 14:48-0400 Body height 157.48 cm II Stoney Giles Work Phone: [facility] 10-30-2021 14:48-0400 Body mass index (BMI) [Ratio] 29.8 kg/m2 II Stoney Giles Work Phone: [facility] 10-30-2021 14:48-0400 Body weight 73.93 kg II Stoney Giles Work Phone: [facility] 07-24-2021 11:45-0500 Body height 157.48 cm Piter Nicko Other [facility] Other 07-24-2021 11:45-0500 Body mass index (BMI) [Ratio] 29.26 kg/m2 Piter Maharaj Other [facility] Other 07-24-2021 11:45-0500 Body weight 72.58 kg Piter Maharaj Other [facility] Other Encounters Encounter Date Encounter Type Care Provider Facility Start: 08-16-2023 End: 08-16-2023 ambulatory JOHN SHUKLA Not Available Start: 07-18-2023 End: 07-18-2023 ambulatory JAVED LEVIN Not Available Start: 04-04-2023 End: 04-04-2023 ambulatory Dutch Pereyra Other [facility] Other Start: 04-04-2023 Office outpatient new 30 minutes Dutch Pereyra [facility] Neurosurgery Start: 04-03-2023 End: 04-03-2023 ambulatory Dutch Pereyra Facility:[facility] Start: 04-03-2023 End: 04-03-2023 Patient encounter procedure II Stoney Giles Work Phone: [facility] [place] Work Phone: Start: 03-12-2023 End: 03-12-2023 ambulatory Piter Maharaj Other [facility] Other Start: 03-12-2023 Office outpatient visit 15 minutes Piter Maharaj [facility] G[facility] Start: 01-01-[address] STONEY GILES Facilit y:[facility]1 Start: 12-18-2022 End: 12-19-2022 ambulatory NARENDRANATH LAKSHMIPATHY . Facility: Start: 12-11-2022 End: 12-11-2022 ambulatory ISABELLA VAUGHN Facility:[facility] Start: 12-04-2022 End: 12-04-2022 ambulatory STONEY ASKEW Facility:[facility] Start: 11-07-2022 End: 11-08-2022 ambulatory Gilbert Chauhan [facility] Start: 10-26-2022 End: 10-26-2022 ambulatory Gilbert Chauhan Facility:[facility] Start: 10-26-2022 End: 10-26-2022 ambulatory II Stoney Giles Work Phone: [facility] Work Phone: Start: 10-26-2022 End: 10-26-2022 Patient encounter procedure II Stoney Giles Work Phone: [facility] [place] Work Phone: Start: 10-23-2022 End: 10-24-2022 ambulatory NARENDRANATH LAKSHMIPATHY . Facility:[facility] Start: 10-09-2022 End: 10-09-[address] ALEENA ANAND . Facility:[facility] Start: 09-21-2022 End: 09-21-[address] DEANN THOMASON Facility:[facility] Start: 2022 End: 09-14-2022 ambulatory YESSI ARBOLEDA . Facility:[facility] Start: 09-11-2022 End: 09-11-2022 ambulatory Piter Maharaj Other [facility] Other Start: 09-11-2022 Office outpatient visit 15 minutes Piter Maharaj [facility] Start: 08-23-2022 End: 08-23-2022 ambulatory Marla Winslow Facility:[facility] Start: 08-23-2022 End: 08-23-2022 ambulatory II Stoney Giles Work Phone: [facility] Work Phone: Start: 08-23-2022 End: 08-23-2022 Patient encounter procedure II Stoney Giles Work Phone: [facility] Work Phone: Start: 08-21-2022 End: 08-21-[address] ALEENA ANAND . Facility:[facility] Start: 08-20-2022 End: 08-20-2022 ambulatory Piter Maharaj Other [facility] Other Start: 08-20-2022 Telephone encounter Piter moctezuma [facility] Start: 08-08-2022 End: 08-08-2022 ambulatory Piter Maharaj Other [facility] Other Start: 08-08-2022 Telephone encounter Piter moctezuma [facility] Start: 07-31-2022 End: 08-01-[address] ALEENA ANAND . Facility:[facility] Start: 07-30-2022 End: 07-30-2022 ambulatory Piter Maharaj Other [facility] Other Start: 07-30-2022 Telephone encounter Piter moctezuma [facility] Start: 07-25-2022 End: 07-25-2022 ambulatory Piter Maharaj Other [facility] Other Start: 07-25-2022 Patient encounter procedure Piter Maharaj [facility] Start: 07-20-2022 End: 07-21-[address] Jamel MAHARAJ Facility:[facility] Start: 07-18-2022 End: 07-18-2022 ambulatory Piter Maharaj Other [facility] Other Start: 07-18-2022 Telephone encounter Piter Altamiranosarah ck [facility] Start: 07-17-2022 End: 07-17-2022 ambulatory RAE HIRSCH . [place] [employer] Other Start: 07-17-2022 Telephone encounter Piter Sen ck [facility] Start: 07-13-2022 End: 07-14-[address] STONEY GILES [facility] [employer] Other Start: 07-13-2022 Telephone encounter Piter moctezuma [facility] Start: 07-03-2022 End: 07-03-2022 ambulatory Piter Maharaj Other [facility] Other Start: 07-03-2022 Telephone encounter Piter Sen ck [facility] Start: 06-25-2022 End: 06-25-2022 ambulatory Stoney Giles Facility:[facility] Start: 06-25-2022 Registered Recurring II Stoney Giles Work Phone: [facility] Work Phone: Start: 05-23-2022 End: 05-23-2022 ambulatory Piter Maharaj Other [place] [employer] Other Start: 05-23-2022 Office outpatient visit 15 minutes Piter Maharaj [facility] Start: 04-27-2022 End: 04-28-[address] Jamel MAHARAJ Facility:[facility] Start: 04-25-2022 End: 04-25-2022 ambulatory Piter Maharaj Other [facility] Other Start: 04-25-2022 Office outpatient visit 25 minutes Piter Maharaj [facility] Start: 04-25-2022 Telephone encounter Piter moctezuma [facility] Start: 04-05-2022 End: 04-06-[address] STONEY GILES Facility:[facility] Start: 02-08-2022 End: 02-09-[address] STONEY GILES Facility:[facility] Start: 01-15-2022 End: 01-15-2022 ambulatory Piter Maharaj Other [facility] Other Start: 01-15-2022 Telephone encounter Piter moctezuma [facility] Start: 07-24-2021 End: 07-24-2021 ambulatory Piter Maharaj Other [facility] Other Start: 07-24-2021 Office outpatient visit 15 minutes Piter Maharaj [facility] Start: 06-29-2021 End: 06-29-2021 ambulatory Piter Maharaj Other [facility] Other Start: 06-29-2021 Telephone encounter Piter moctezuma [facility] Procedures Date Procedure Procedure Detail Performing Clinician Start: 04-03-2023 X-ray of cervical spine II Stoney Giles Work Phone: Start: 10-26-2022 Plain chest X-ray II Da katt Giles Work Phone: Start: 08-23-2022 X-ray of left ankle II Stoney Giles Work Phone: Immunizations Immunization Date Immunization Notes Care Provider Ruma martinez 12-21-2014 tetanus toxoid, reduced diphtheria toxoid, and acellular pertussis vaccine, adsorbed Piter Maharaj Other [facility] Other Payers Date Payer Category Payer Medicaid [id number] 2019 Self-pay [id number] 2019 Unknown [id number] 1990 Unknown [id number] [id number]7 1990 Unknown [id number] 2.16.840.1.849558.3.579.2.593 1990 Unknown [id number] 2.16.840.1.297201.3.579.2.593 1990 Unknown [id number] 2.16.840.1.768973.3.579.2.593 1990 Unknown [id number] 2.16.840.1.258208.3.579.2.593 1990 Unknown [id number] 2.16.840.1.382605.3.579.2.593 1990 Unknown [id number] 2.16.840.1.803045.3.579.2.593 1990 Unknown [id number] 2.16.840.1.938264.3.579.2.593 1990 Unknown [id number] 2.16.840.1.013158.3.579.2.593 1990 Unknown [id number] 2.16.840.1.646028.3.579.2.593 1990 Unknown [id number] 2.16.840.1.974615.3.579.2.593 1990 Unknown [id number] 2.16.840.1.190134.3.579.2.593 1990 Unknown [id number] 2.16.840.1.643953.3.579.2.593 1990 Unknown [id number] 2.16.840.1.253059.3.579.2.593 1990 Unknown [id number] 2.16.840.1.174690.3.579.2.593 1990 Unknown [id number] 2.16.840.1.150858.3.579.2.593 1990 Unknown [id number] 2.16.840.1.841107.3.579.2.593 1990 Unknown [id number] 2.16.840.1.643466.3.579.2.1259 1990 Unknown [id number] 2.16.840.1.478976.3.579.2.1259 1959 Unknown [id number] 2.16.840.1.957008.19 Private Health Insurance [facility] [id number] Unknown [id number] 2.16.840.1.965268.3.579.2.531 Social History Date Type Detail Facility Sex Assigned At [facility] Other Start: 12-23-2018 End: 12-23-2018 Tobacco smoking status [facility] Smoker (finding) [facility] Start: 1990 Sex Assigned At Female F [facility] Clinical Notes 07-24-2021 to 04-04-2023 Note Date & Type Note Facility 04-04-2023 Evaluation note Encounter Date Diagnosis Assessment Notes Mar, Neck pain (ICD-10 - M54.2) I independently reviewed the plain x-ray of the neck and the MRI of the neck. There is no overt malalignment. Bone appears reasonable. She has disc osteophyte anteriorly at C5-6 C6-7 but there is no cervical foraminal narrowing of any significance no significant canal narrowing. This problem with regard to the neck findings on MRI are nonoperative the patient has primarily neck pain which needs to be treated in a conservative fashion. She does get numbness in her arms I was able to reproduce carpal tunnel syndrome with the Phalen sign. This can be evaluated or treated any time the patient is ready but she does not feel it is significant enough at this time Mar, Cervical spondylosis (ICD-10 - M47.812) Mar, Carpal tunnel syndrome of right wrist (ICD-10 - G56.01) [facility] Other 08-01-2023 Evaluation note* Encounter Date Diagnosis Assessment Notes Treatment Notes Treatment Clinical Notes Mar, Crohns disease (ICD-10 - K50.90) Patient still having some small flares [facility] Other 05-09-2023 NoteCONSULTATION PROCEDURE DATE: 12/18/2022 PROCEDURE: Trigger point injection C7-T1 interspinous ligament. PREOPERATIVE DIAGNOSIS: Pain, significant spasm C7-T1 interspinous ligament. POSTOPERATIVE DIAGNOSIS: Pain, significant spasm C7-T1 interspinous ligament. SOLUTION USED FOR INJECTION: 2 mL of 2% lidocaine, 2 mL of 0.25% Marcaine and 20 mg of Kenalog in total of 5 mL and 1 mL was used for the injection at the site. IMMEDIATE COMPLICATION: None. PROCEDURE: After informed consent was obtained from the patient, placed in sitting position. Skin overlying the area was prepped with alcohol. A 25 gauge, 1 1/2 inch needle was inserted over the C7-T1 interspace. The needle was directed towards the interspinous ligament. After having a positive twitch response, no indication of intravascular or intraneural needle tip placement. 1 mL of solution was injected. No indication of intravascular or intraneural needle tip placement or injection was noted. No evidence of intrathecal needle tip placement or injection was noted. Post procedurally, patient reports a marked reduction in pain symptoms at the site of the injection.[facility] [id number] NoteCONSULTATION CONSULTATION DATE: 10/23/2022 FOLLOW UP NOTE TO: Dr. Giles HISTORY: Patient returns today complaining of pain in her neck, worse on the left than the right side, rates 5-7/10, sharp in character, increasing with activities such as lifting maneuvers, pushing/pulling maneuvers. She feels most comfortable in the semi-recumbent position. She denies any change in bowel and bladder habits or new sensory motor changes in her upper extremities. EXAM: Notable for patient having no clinical radiculopathy or myelopathy involving her upper extremities. Patient did have severe pain with cervical facet joint loading maneuvers occurring bilaterally, worse one the left than the right side at C3-4, C4-5 and C5-6. She had associated myofascial spasm of the cervical paravertebral muscles. She has undergone two diagnostic medial branch blocks, last one being on 10/09/2022. She reports the pain was improved by 100% in the immediate post procedural period, lasting for several hours, with recurrence of pain back to her baseline. That was the second diagnostic procedure, which was successful. Her BERNIE is 12. RECOMMENDATIONS: I recommend proceeding with rhizotomy using radiofrequency ablation of the C4, C5, C6 medial branch, starting on the left side initially, and then proceeding to the right side, approximately 1-2 weeks later. I have gone over the details of the procedure with the patient. All her questions were answered. She agrees to proceed with the outlined plan. Also, of note, she uses Winton infrequently. She takes half a pill at a time, when she does use it, and she uses less than 14 pills in a month. Her OARRS report was reconciled. She does report the medicine does improve her quality of life, level of functioning and sleep pattern.[facility] [id number] Note CONSULTATION CONSULTATION DATE: 2022 This is a 32-year-old female who returns to the clinic status post #1 bilateral MBB of C4, C5 and C6, C7 completed on 08/21/2022. The patient states she was afforded 80% relief for a few hours, then decreased to 60% for a couple days. Today she rates her pain 2 out of 10, describes an 8. Hyperflexion greatly aggravates her pain. Lifting, ADLs and lifting her small child aggravates her pain. She does use heat and self-massage which she finds beneficial. Medications include Winton 5/325, half pill p.r.n. as needed because it makes her nauseous. She does take melatonin, magnesium and Aleve as needed. REVIEW OF SYSTEMS, PAST MEDICAL HISTORY, ALLERGIES AND IMAGES: Have been reviewed and noted in the chart. PHYSICAL EXAM: VITAL SIGNS: Blood pressure 118/84, heart rate is 61 . Height is 5'2 , weighs 70 kg. GENERAL APPEARANCE: Pleasant, appropriate and in no acute distress. NECK: Neck range of motion is guarded in lateral rotation and flexion/extension. Reproduction of spinal axial pain noted upon direct compression along the cervical facets of C4, C5 and C6, C7. Fullness is palpated as well within the facets, indicative of ill facet arthropathy and cervical spondylosis. Cervical, trapezius and splenius capitis muscles are non-spasmodic. HEART: No JVD. No orthostatic deviation. MUSCULOSKELETAL: Bilateral upper extremities with motor 5 out of 5. No overt motor weakness noted. NEUROLOGICAL: Patchy hypesthesia noted along C6, C7 distribution that does not extend below the shoulders bilaterally. +2 brachioradialis reflexes DIAGNOSIS: Cervical spondylosis, cervical degenerative disease, cervicalgia. PLAN: We will progress to #2 bilateral MBB at C4, C5 and C6, C7. 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 She is to increase her magnesium supplement to 400 mg q. day. A U-TOX will be completed in the office today. The patient agrees to move forward with the procedure. She will be followed in the office there after.[facility] [id number] Evaluation note* Encounter Date Diagnosis Assessment Notes Treatment Notes Treatment Clinical Notes Aug, Crohns disease (ICD-10 - K50.90) Continue Stelara without change Labs and follow up in 6 months [facility] Other 12-20-2022 NoteCONSULTATION CONSULTATION DATE: 07/31/2022 CHIEF COMPLAINT: Cervical pain. HISTORY OF PRESENT ILLNESS: This is a very pleasant, 31-year-old female, who was referred to us by Dr. Giles. The patient has had cervical pain for a few years. The patient has attended physical therapy and just has completed it. She has also had an MRI of her cervical spine, which shows bulging discs at the level of C5-6 and C6-7. The patient currently takes Aleve two tablets a day, Winton 5/325 on a p.r.n. basis. She tries not to, given that the fact that she is still breast feeding. The patient has recently started steroids due to the history of Crohn's disease and a recent flare up. The patient states the pain is a 7-8/10. Pushing, pulling, lifting, reaching aggravate the pain. Heat mitigates the pain as does activity and ADLs. The patient's PAST MEDICAL HISTORY / SURGICAL HISTORY / REVIEW OF SYSTEMS are noted on the chart, along with the MEDICATION LIST / ALLERGIES and the MRI which was reviewed with the patient. PHYSICAL EXAM: Upon physical examination, this is a pleasant, cooperative female, who does not appear to be in any acute distress. VITAL SIGNS: Stable at 124/87, with a heart rate of 57. At a height of 5'2 , the patient weighs 69 kg. HEAD: Atraumatic, normocephalic. NECK: Loss of cervical lordosis is noted. The patient states she has a habit of cracking her neck to get comfort. Extension, compression, direct palpation along the posterior elements aggravate and reproduce the patient's pain symptomatology concordant with facet arthropathy, cervical spondylosis. Jump response is noted. EXTREMITIES: Motor examination of the upper extremities intact bilaterally. Muscle strength is 4+/5 bilaterally. No clubbing or cyanosis. NEUROLOGICALLY: No radicular symptomatology. PSYCHIATRICALLY: Affect is appropriate. IMPRESSION: Cervicalgia, cervical spondylosis, bulging disc C5-6, 6-7, significant jump response, cervical paravertebral spasm. PLAN: The patient is to apply a heat rub to her cervical spine. No cervical manipulation and education done with the sharing of the MRI. A home cervical traction device. Given the fact that the patient has completed a physical therapy program, and the MRI defines the spondylosis, we will request authorization of a cervical medial branch block at the level of C4-5 and C6-7. CC: Stoney Giles M.D.[facility] [id number] Evaluation note* Encounter Date Diagnosis Assessment Notes Treatment Notes Treatment Clinical Notes Jul, Crohns disease (ICD-10 - K50.90) CONTINUE STELARA DIRECTED DECREASE PREDNISONE TO 40 MG DAILY FOR 7 DAYS, THEN DECREASE BY 10 MG WEEKLY RTO 6 WEEKS Ku Other 12-07-2022 Evaluation note* Encounter Date Diagnosis Assessment Notes Treatment Notes Treatment Clinical Notes Jul, Crohns disease (ICD-10 - K50.90) [facility] Other 10-12-2022 Evaluation note* Encounter Date Diagnosis Assessment Notes Treatment Notes Treatment Clinical Notes May, Crohns disease (ICD-10 - K50.90) May, Diarrhea (ICD-10 - R19.7) 12 May, 2022 Abdominal cramping (ICD-10 - R10.9) [facility] Other 09-14-2022 Evaluation note* Encounter Date Diagnosis Assessment Notes Treatment Notes Treatment Clinical Notes Apr, Crohns disease (ICD-10 - K50.90) PT HAS TRIED AND FAILED HUMIRA AND ENTYVIO START PPW FOR SKYRIZI RTO 4 WEEKS 14 Apr, 2022 Diarrhea (ICD-10 - R19.7) 14 Apr, 2022 Abdominal cramping (ICD-10 - R10.9) [facility] Other 06-30-2022 NotePROCEDURE: XR FOOT RT 2V COMPARISON: None. HISTORY: Pain in right foot FINDINGS: BONES:No acute fracture or dislocation. Mild enthesopathic spurring of the calcaneus at the Achilles insertion SOFT TISSUES:Negative. No visible soft tissue swelling. EFFUSION:None visible. OTHER: Negative. IMPRESSION: No acute abnormality Electronically authenticated by: ISABEL CHAVEZ Date: 2022-02-08 17:18[facility]12-13-2021 Evaluation note* Encounter Date Diagnosis Assessment Notes Treatment Notes Treatment Clinical Notes Jul, Crohns disease (ICD-10 - K50.90) PATIENT STATES IS BEEN ABOUT ALMOST 8 WEEKS SINCE HER LAST INFUSION. PATIENT STATES BEFORE HAVING BABY SHE WAS EVERY 6 WEEKS WITH ENTYVIO BUT SINCE GIVING SHE HAS BEEN EVERY 8 WEEKS SHE IS HAVING FLARE UPS. WILL INCREASE ENYVIO BACK TO EVERY 6 WEEKS, LABS ORDERED AT THIS TIME. Ku Other Evaluation noteNo InformationNort [facility]. Other Evaluation noteNo assessment information available [facility] Work Phone: [facility] general Narrative - Reported* Type Description Date Medical History [facility] History tonsillectomy Hospitalization History childbirth Ku Other [facility] general Narrative - Reported* Type Description Date Medical History [place] Surgical History tonsillectomy Surgical History [facility]FA Hospitalization History childbirth Ku Other History general Narrative - Reported* Type Description Date Medical History [place] Medical History anxiety Medical History Crohns disease Surgical History tonsillectomy Surgical History [facility]FA Hospitalization History childbirth Hospitalization History see above surg. hx. Ku Other Chief Complaint and Reason for Visit Chief Complaint k50.90,k50.00.. T14.90XA Chief Complaint T14.90XA Z01.818 Chief Complaint Z01.818 Chief Complaint m54.2 Family History No Family History Records Found Relationship Condition Age at Onset Recorded Date/T anand Not Specified Fibromyalgia Unknown family member Malignant neoplasm of urinary bladder Un known family member Malignant neoplasm of colon Unknown Advance Directives No Advanced Directives Records Found Advance Directive Response Recorded Date/ Time Advance Directives No December 16, 2018 11:38am Advance Directive Response Recorded Date/ Time Advance Directives No December 16, 2018 12:38pm Summary Purpose Additional Source Comments REASON FOR VISIT (unrecogniz ed section and content) 07/27 ENTYVIO PRIOR AUTH FOL KATELIN 4Patient here for 1 year Follow up to Crohns. Patient was to start Valteran gel, Stelara was discussed. Patient does continue on the Entyvio., PATIENT STATES THAT SHE WAS HAVING A LOT OF SYMPTOMS AT THIS TIME. PATIENT STATES THAT SHE DOES NOT NOTICE ANY BLEEDING. PATIENT WAS ON THE ENTYVIO EVERY 6 WEEKS PRIOR TO HAVING HER BABY.01/26 ENTYVIO FOLDER 1PATIENT HERE FOR 9 MONTH FOLLOW UP TO [facility]NS. PATIENT WAS TO HAVE LABS COMPLETED AND CONTINUE ON THE ENTYVIO4 WEEK FOLLOW UP PER DR MAHARAJ FOR CROHNS, DIARRHEA AND ABDOMINAL CRAMPING. PATIENT WAS TO HAVE LABS AND START PAPERWORK FOR [facility].06/21 StelaraClinicalClinical Acute IllnessPREDNISONEClinical Acute IllnessClinical Acute MedicinePT ADDED ON PER LRM. PT WAS TO HAVE LABS DRAWN.PREDNISONE [id number] STELARA INJECTIONSTELARA SHOTPT HERE FOR 3 MONTH FOLLOW UP CROHNS. PT WAS STARTED ON STELARA.Patient here for 6 month follow up (labs not done)referred by Dr. Giles cervical stenosis of spine Care Teams (unrecognized sec tion and content) Team Status: Inactive Member Role Status Dates Stoney Giles II MD Primary Care Provider Active Marla Winslow APRN Attending Provider Active Team Status: Active Member Role Status Dates Stoney Giles II MD Primary Care Provider Active Piter Maharaj MD Attending Provider Active Team Status: Active Member Role Status Dates Stoney Giles II MD Primary Care Provider Active Team Status: Inactive Member Role Status Dates Stoney Giles II MD Primary Care Provider Active Gilbert Chauhan DPM Attending Provider Active Team Status: Inactive Member Role Status Dates Stoney Giles II MD Primary Care Provider Active Dutch Pereyra MD Attending Provider Active Goals (unrecognized section and content) Goals may be documented in a n alternate section INFORMATION SOURCE (unrecogn ized section and content) DATE CREATED AUTHOR 11/18/2022 [facility] DATE CREATED AUTHOR AUTHOR'S ORGANIZ ATION 12/23/2022 [facility] DATE CREATED AUTHOR AUTHOR'S ORGANIZ ATION 04/04/2023 [facility] DATE CREATED AUTHOR AUTHOR'S ORGANIZ ATION 08/17/2023 [facility] FOR RECORDS PERTAINING TO PATIENTS WHO ARE OR HAVE BEEN ENROLLED IN A CHEMICAL DEPENDENCY/SUBSTANCEABUSE PROGRAM, SOME INFORMATION MAY BE OMITTED. This clinical summary was aggregated from multiple sources. Caution should be exercised in using it in the provision of clinical care. This summary normalizes information from multiple sources, and as a consequence, information in this document may materially change the coding, format and clinical context of patient data. In addition, data may be omitted in some cases. CLINICAL DECISIONS SHOULD BE BASED ON THE PRIMARY CLINICAL RECORDS. [employer] provides no warranty or guarantee of the accuracy or completeness of information in this document.
--- NOTE | 2023-08-21 13:02 | PM.CN ---
Consult Note: HPI Data of Consult Patient: known to practice within the last 3 years Requesting Physician: Lisandra Alcantar NP Primary Care Provider: CHIDI PARKER Consult Narrative Reason for consult: F/u Narrative: Alejandra Lynn a pleasant 32 year old female presents for evaluation and management of chronic neck pain and radiculopathy. Patient has previously been evaluated by NS and deemed nonsurgical. Patient did not find benefit from cervical RFAs as she had many complications per patient. Patient found >50% pain relief for 3 months from most recent JUAN however pain and radicular symptoms are worsening at this time. Patient discontinued zonegran due to side effects. Continues to benefit from norco 5-325mg daily as needed. Patient would like to discuss additional options at this time as she continues to have constant moderate pain impacting functional ability, last MRI 2021 with moderate degenerative disc disease, moderate central canal narrowing. cc:: CC: Lisandra Alcantar NP Review of Systems ROS Status of ROS 10 or more systems reviewed and unremarkable except as noted in history and below Musculoskeletal Reports: neck pain PFSH PFSH Medical History Crohn's disease ?K50.90 - Crohn's disease, unspecified, without complications (ICD-10) Neck ache ?M54.2 - Cervicalgia (ICD-10) Spondylosis without myelopathy or radiculopathy, cervical region ?M47.812 - Spondylosis without myelopathy or radiculopathy, cervical region (ICD-10) Surgical History History of tonsillectomy ?Z90.89 - Acquired absence of other organs (ICD-10) Social History Smoking status: Former smoker Meds Home Medications and Allergies Home Medications Medication Instructions Recorded Confirmed Type hydrocodone 5 mg-acetaminophen 325 1 tab PO .daily. 02/14/23 04/30/23 History mg tablet hydrocodone 5 mg-acetaminophen 325 1 tab PO DAILY PRN pain #30 tabs 03/19/23 04/30/23 Rx mg tablet zonisamide 50 mg capsule 50 mg PO DAILY 04/30/23 04/30/23 History hydrocodone 5 mg-acetaminophen 325 1 tab PO DAILY PRN pain #30 tabs 05/01/23 Rx mg tablet hydrocodone 5 mg-acetaminophen 325 1 tab PO DAILY PRN pain #30 tabs 06/07/23 Rx mg tablet hydrocodone 5 mg-acetaminophen 325 1 tab PO DAILY PRN pain #30 tabs 07/24/23 Rx mg tablet Allergies Allergy/AdvReac Type Severity Reaction Status Date / Time adhesive Allergy Mild Blister Verified 04/30/23 09:50 latex AdvReac Rash Uncoded 02/14/23 21:39 Exam Constitutional Documenting provider has reviewed patient's vital signs: yes Common normals: no apparent distress, oriented x3, healthy appearing, alert and well nourished General appearance: cooperative HENMT Common normals: normocephalic, hearing grossly normal bilaterally and moist oral mucous membranes Head and scalp: normocephalic Eye Common normals: PERRL Pupil: PERRL Neck & C-Spine Common normals: full ROM General: normal visual inspection Cervical spine: pain with cervical ROM, paracervical muscle tenderness and paracervical muscle spasm Other: radiculopathy following C7 and C8 bilaterally Chest Common normals: inspection of chest normal Respiratory Common normals: normal respiratory effort, no retractions and no use of accessory muscles Extremity Common normals: normal to inspection and full ROM Neuro Common normals: oriented x3, CN's II-XII intact bilaterally, moves all extremities, no focal motor deficits, no sensory deficits noted and deep tendon reflexes 2+ bilaterally Sensorium/orientation: alert Motor exam: strength 5/5 throughout and no movement abnormalities noted Other: no numbness and tingling in BUE Psych Common normals: mental status grossly normal, thought process normal, cooperative, affect normal, speech normal and activity/motor behavior normal Speech: normal speech Thought process: normal thought process Results Additional Findings Additional findings: I have checked an [place]AR[place] report on this patient today and there are no aberrancies noted in the prescribing history.?? A drug screen was completed and reviewed within the last year, and if there has not been a drug screen completed we ordered one today to monitor higher risk, state monitored pain medication use. As part of providing excellent, safe, comprehensive care, the following was completed at our patient's visit: 1. A medication reconciliation and review to ensure accurate knowledge of current/active medications, including asking our patients to inform us about any vjpy-kob-nyofhya medications or herbal remedies/nutritional supplements/alternative remedies. 2. A review to specifically ensure our patients have had annual screening for: elevated body mass index (BMI), tobacco use, screening for depression, and screening for unhealthy alcohol use. When screening is concerning, patients are provided with education and the specific recommendation to discuss the concerning health issue and treatment options with their primary care provider. Assessment and Plan Assessment and Plan (1) Cervical spinal stenosis: (2) Cervical spondylosis: (3) Cervical radiculopathy: (4) Chronic pain syndrome: (5) Chronic prescription opiate use: Assessment and Plan: I feel these medications are improving the patient's quality of life and allow them to tolerate activities of daily living as well as participate in recreational activity.? The patient does not report intolerable side effects. The patient is NOT opioid naive and non-pharmacologic and non-opioid treatment has failed to significantly relieve the patient's pain and improve functionality. The patient has a diagnosis that is related to a somatic or visceral pain etiology. ? ?? I reviewed with the patient the potential risks and side effects with the use of? opioid medications including but not limited to respiratory depression,? sedation, and even . I verified the patient has access to naloxone should? these effects occur. I advised the patient to avoid the use of any other? sedation substances including alcohol, THC, and benzodiazepines while? taking opioid medications due to the risk of compounding side effects and? detrimental outcomes. I reviewed the RESEARCH PROGRAM ASSISTANT, pain treatment agreement, urine? drug screen, and opioid start talking forms. The patient was advised to let? their family know they had Naloxone in case they would need to administer? the medication.? ?? A drug screen was completed within the last year, and no aberrancies were noted regarding their use of controlled substances. The patient understands they are subject to the terms and conditions of the pain contract that they have signed. ? ?? I have checked an OARRS report on this patient today and there are no aberrancies noted in the prescribing history.? Plan update MRI without contrast to evaluate for NS referral vs injection therapy declining additional medications due to concerns with side effects continue norco 5-325 daily as needed f/u after MRI
== END 2023-08-21 12:42 | disposition home or self-care (01) ==
PROVIDERS: PCP Internal Medicine; Visit Provider Nurse Practitioner
DX: M48.02 Spinal stenosis, cervical region (principal); M47.812 Spondylosis without myelopathy or radiculopathy, cervical region; M54.12 Radiculopathy, cervical region; G89.4 Chronic pain syndrome; Z79.891 Long term (current) use of opiate analgesic
CPT/HCPCS: G0463

== ENCOUNTER 2023-09-03 10:39 | Outpatient (OUT) | payer MEDICAID, SELFPAY ==
--- OUTSIDE RECORDS SUMMARY | 2023-09-03 10:42 | XMS_ITS | CCD ---
Author Name Unknown Address [address] [place] [address] Organization [facility] Care Team Providers Care Electrician Technician Name Role Phone Piter Maharaj Unavailable LUZ Giles Primary Care Provider MD Piter Maharaj Attending Provider [phone] AIDAN Winslow Attending Provider LUZ Giles Primary Care Provider AIDAN Winslow Attending Provider JOSE Chauhan Attending Provider Giblert Chauhan Admitting Unavailable Gilbert Chauhan Attending Unavailable [...] vailable LAKSHMIPATHY ., CINTIA Admitting Ileana vailable ISABELLA VAUGHN Consulting Unavailable LAKSHMIPATHY ., CINTIA Consulting Ileana vailable ISABELLA VAUGHN Consulting Unavailable ELENA, DR MURILLO Primary Care Unavailable LAKSHMIPATHY ., CINTIA Attending Ileana vailable LAKSHMIPATHY ., LIANAENDHESHAM Admitting Ileana vailable LAKSHMIPATHY ., CINTIA Consulting Ileana vailable ANAND ., DR ALEENA Bustamante Consulting Unavailable ELENA, DR MURILLO Primary Care Unavailable ANAND ., DR ALEENA Bustamante Attending Unavailable ANAND ., DR ALEENA Bustamante Admitting Unavailable Giles, Stoney Primary Care Unavailable Nicko, Piter Alaniz Admitting Unavailabl e Nicko, Piter R Attending UnavailMarla Guadalupe Admitting Unavailable Marla Winslow Attending Unavailable Stoney Giles Primary Care Unavailable Gilbert Chauhan Admitting Unavailable Gilbert Chauhan Attending Unavailable Stoney Giles Primary Care Unavailable Dutch Pereyra Admitting Unavailable Dutch Pereyra Attending Unavailable Stoney Giles Primary Care Unavailable Dutch Pereyra Unavailable LUZ Giles Primary Care Provider MD Dutch Pereyra Attending Provider JOHN SHUKLA Attending Unavailable JAVED LEVIN Attending Unavailable Allergies Allergy Classification Reported Allergen(s) Allergy Type Date of Onset Reaction(s) Facility (8 sources) Adhesive agent; Translations: [Adhesive] Allergy to substance 6 Unknown Reaction, Unknown [facility] (13 sources) Latex; Translations: [Latex] Allergy to substance 9 Unknown Reaction, Unknown [facility] (5 sources) BANDAIDS; Translations: [BANDAIDS] Allergy to substance 9 Unknown Reaction [facility] Medications Current Medications Medication Drug Class(es) [...] 09-24-2022 Episodic Other aftercare (1 source) 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; Translations: [OTH 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 CURRENT DRUG THERAPY] Onset: 09-24-2022 Episodic Other [...] 04-03-2023 ALT [Catalytic activity/Vol] 8 U/L 7-52 [facility] Albumin [Mass/volume] in Ser um or Plasma by Bromocresol green (BCG) dye binding methoOrdered By: Piter Maharaj on 04-03-2023 Albumin BCG dye [Mass/Vol] 4.6 g/dL 3.5-5.7 [facility] Alkaline phosphatase [Enzyma tic activity/volume] in Serum or PlasmaOrdered By: Piter Maharaj on 04-03-2023 ALP [Catalytic activity/Vol] 50 U/L 34-104 [facility] Aspartate aminotransferase [ Enzymatic activity/volume] in Serum or PlasmaOrdered By: Piter Maharaj on 04-03-2023 AST [Catalytic activity/Vol] 10 U/L 13-39 [facility] Basophils Auto (Bld) [#/Vol] Ordered By: Piter Maharaj on 04-03-2023 Basophils (Bld) [#/Vol] 0.1 10*3/uL 0.0-0.2 [facility] Basophils/100 WBC Auto (Bld) Ordered By: Piter Maharaj on 04-03-2023 Basophils/100 WBC (Bld) 0.9 % . [facility] Bilirubin.total [Mass/volume ] in Serum or PlasmaOrdered By: Piter Maharaj on 04-03-2023 Bilirubin [Mass/Vol] 0.6 mg/dL 0.3-1.0 [facility] C reactive protein [Mass/vol ume] in Serum or PlasmaOrdered By: Piter Maharaj on 04-03-2023 CRP [Mass/Vol] < 0.5 mg/dL 0.0-0.5 [facility] C-Reactive Proteinon 023 CRP [Mass/Vol] mg/L Normal 0.0-0.5 [facility] Comment on above: Order Comment: Reaso n for Exam Crohns disease Result Comment: PERF ORMED BY: [place] [address] PATHOLOGIST BOX ATTACHER JOANA SALCIDO M.D. Performed By: #### C RP, CMP #### [facility] [address] [place] [address] Calcium [Mass/volume] in Ser um or PlasmaOrdered By: Piter Maharaj on 04-03-2023 Calcium [Mass/Vol] 8.8 mg/dL 8.6-10.3 [facility] Carbon dioxide, total [Moles /volume] in Serum or PlasmaOrdered By: Piter Maharaj on 04-03-2023 CO2 [Moles/Vol] 25.0 mmol/L 21.0-31.0 [facility] Chloride [Moles/volume] in S darwin or PlasmaOrdered By: Piter Maharaj on 04-03-2023 Chloride [Moles/Vol] 110 mmol/L 98-107 [facility] Complete Blood Count Auto Di ffon 04-03-2023 Basophils (Bld) [#/Vol] 0.1 10*3/uL Normal 0.0-0.2 [facility] Comment on above: Order Comment: Reaso n for Exam Crohns disease Performed By: #### E SR, CBC #### [facility] [address] [place] [address] [place] Basophils/100 WBC (Bld) 0.9 % Normal . [facility] Comment on above: Order Comment: Reaso n for Exam Crohns disease Performed By: #### E SR, CBC #### [facility] [address] [place] [address] [place] Eosinophils (Bld) [#/Vol] 0.1 10*3/uL Normal 0.0-0.45 [facility] Comment on above: Order Comment: Reaso n for Exam Crohns disease Performed By: #### E SR, CBC #### [facility] [address] [place] [address] [place] Eosinophils/100 WBC (Bld) 1.3 % Normal . [facility] Comment on above: Order Comment: Reaso n for Exam Crohns disease Performed By: #### E SR, CBC #### [facility] [address] Erythrocyte distribution width (RBC) [Ratio] 12.1 % Normal 11.9-15.3 [facility] Comment on above: Order Comment: Reaso n for Exam Crohns disease Performed By: #### E SR, CBC #### [facility] [address] [place] [address] [place] Hematocrit (Bld) [Volume fraction] 39.4 % Normal 34.0-46.4 [facility] Comment on above: Order Comment: Reaso n for Exam Crohns disease Performed By: #### E SR, CBC #### [facility] [address] [place] [id number] [place] Hemoglobin (Bld) [Mass/Vol] 13.5 g/dL Normal 11.8-15.4 [facility] Comment on above: Order Comment: Reaso n for Exam Crohns disease Performed By: #### E SR, CBC #### [facility] [address] [place] [address] [place] Lymphocytes (Bld) [#/Vol] 1.9 10*3/uL Normal 1.00-4.8 [facility] Comment on above: Order Comment: Reaso n for Exam Crohns disease Performed By: #### E SR, CBC #### [facility] [address] Lymphocytes/100 WBC (Bld) 31.9 % Normal . [facility] Comment on above: Order Comment: Reaso n for Exam Crohns disease Performed By: #### E SR, CBC #### [facility] [address] [place] [address] MCH (RBC) [Entitic mass] 30.4 pg Normal 24.7-34.3 [facility] Comment on above: Order Comment: Reaso n for Exam Crohns disease Performed By: #### E SR, CBC #### [facility] [address] [place] [address] MCV (RBC) [Entitic vol] 88.7 fL Normal 80-100 [facility] Comment on above: Order Comment: Reaso n for Exam Crohns disease Performed By: #### E SR, CBC #### [address] Mean Corpuscular HGB Conc 34.2 g/dL Normal 32.0-35.0 [facility] Comment on above: Order Comment: Reaso n for Exam Crohns disease Performed By: #### E SR, CBC #### [facility] [address] [place] [address] [place] Monocytes (Bld) [#/Vol] 0.5 10*3/uL Normal 0.0-0.8 [facility] Comment on above: Order Comment: Reaso n for Exam Crohns disease Performed By: #### E SR, CBC #### [facility] [address] [place] [address] [place] Monocytes/100 WBC (Bld) 7.5 % Normal . [facility] Comment on above: Order Comment: Reaso n for Exam Crohns disease Performed By: #### E SR, CBC #### [facility] [address] [place] [address] [place] Neutrophils (Bld) [#/Vol] 3.5 10*3/uL Normal 1.8-7.7 [facility] Comment on above: Order Comment: Reaso n for Exam Crohns disease Performed By: #### E SR, CBC #### [facility] [address] [place] [address] [place] Neutrophils/100 WBC (Bld) 58.4 % Normal . [facility] Comment on above: Order Comment: Reaso n for Exam Crohns disease Performed By: #### E SR, CBC #### [facility] [address] NRBC% 0.2 /100{WBC} Normal 0-0.5 [facility] Comment on above: Order Comment: Reaso n for Exam Crohns disease Performed By: #### E SR, CBC #### [facility] [address] [place] [address] [place] Platelet mean volume (Bld) [Entitic vol] 9.3 fL Normal 6.3-10.7 [facility] Comment on above: Order Comment: Reaso n for Exam Crohns disease Performed By: #### E SR, CBC #### [facility] [address] [place] [id number] [place] Platelets (Bld) [#/Vol] 189 10*3/uL Normal 150-450 [facility] Comment on above: Order Comment: Reaso n for Exam Crohns disease Performed By: #### E SR, CBC #### [facility] [address] [place] [address] [place] RBC (Bld) [#/Vol] 4.44 10*6/uL Normal 3.60-5.00 [facility] Comment on above: Order Comment: Reaso n for Exam Crohns disease Performed By: #### E SR, CBC #### [facility] [address] [place] [address] [place] WBC (Bld) [#/Vol] 6.1 10*3/uL Normal 3.8-11.6 [facility] Comment on above: Order Comment: Reaso n for Exam Crohns disease Performed By: #### E SR, CBC #### [facility] [address] Comprehensive Metabolic Pane bob 04-03-2023 Albumin [Mass/Vol] 4.6 g/dL Normal 3.5-5.7 [facility] Comment on above: Order Comment: Reaso n for Exam Crohns disease Performed By: #### C RP, CMP #### [address] Albumin/Globulin [Mass ratio] 2.3 {ratio} Normal [facility] Comment on above: Order Comment: Reaso n for Exam Crohns disease Performed By: #### C RP, CMP #### [address] ALP [Catalytic activity/Vol] 50 U/L Normal 34-104 [facility] Comment on above: Order Comment: Reaso n for Exam Crohns disease Performed By: #### C RP, CMP #### [facility] [address] [place] [address] ALT [Catalytic activity/Vol] 8 U/L Normal 7-52 [facility] Comment on above: Order Comment: Reaso n for Exam Crohns disease Performed By: #### C RP, CMP #### [facility] [address] [place] [address] Anion gap [Moles/Vol] 8.9 mmol/L Normal 6.0-15.0 [facility] Comment on above: Order Comment: Reaso n for Exam Crohns disease Performed By: #### C RP, CMP #### [facility] [address] [place] [address] [place] AST [Catalytic activity/Vol] 10 U/L Low 13-39 [facility] Comment on above: Order Comment: Reaso n for Exam Crohns disease Performed By: #### C RP, CMP #### [facility] [address] [place] [address] [place] Bilirubin [Mass/Vol] 0.6 mg/dL Normal 0.3-1.0 [facility] Comment on above: Order Comment: Reaso n for Exam Crohns disease Performed By: #### C RP, CMP #### [facility] [address] Calcium [Mass/Vol] 8.8 mg/dL Normal 8.6-10.3 [facility] Comment on above: Order Comment: Reaso n for Exam Crohns disease Performed By: #### C RP, CMP #### [facility] [address] Chloride [Moles/Vol] 110 mmol/L High 98-107 [facility] Comment on above: Order Comment: Reaso n for Exam Crohns disease Performed By: #### C RP, CMP #### [facility] [address] CO2 [Moles/Vol] 25.0 mmol/L Normal 21.0-31.0 [facility] Comment on above: Order Comment: Reaso n for Exam Crohns disease Performed By: #### C RP, CMP #### [facility] [address] Creatinine [Mass/Vol] 0.89 mg/dL Normal 0.60-1.20 [facility] Comment on above: Order Comment: Reaso n for Exam Crohns disease Performed By: #### C RP, CMP #### [facility] [address] [place] [address] [place] GFR/1.73 sq M.predicted MDRD (S/P/Bld) [Vol rate/Area] mL/min/{1.73_m2} Normal [facility] Comment on above: Order Comment: Reaso n for Exam Crohns disease Performed By: #### C RP, CMP #### [facility] [address] Globulin (S) [Mass/Vol] 2.0 g/dL Normal [facility] Comment on above: Order Comment: Reaso n for Exam Crohns disease Performed By: #### C RP, CMP #### [facility] [address] [place] [address] [place] Glucose [Mass/Vol] 91 mg/dL Normal 70-100 [facility] Comment on above: Order Comment: Reaso n for Exam Crohns disease Result Comment: [place] Glucose Reference Range is dependent on time and content of last meal. Glucose of more than 200 mg/dL in a nonstressed, ambulatory subject supports the diagnosis of Diabetes Mellitus. ADA recommended reference range Performed By: #### C RP, CMP #### [facility] [address] Potassium [Moles/Vol] 3.9 mmol/L Normal 3.5-5.1 [facility] Comment on above: Order Comment: Reaso n for Exam Crohns disease Performed By: #### C RP, CMP #### [facility] [address] Protein [Mass/Vol] 6.6 g/dL Normal 6.4-8.9 [facility] Comment on above: Order Comment: Reaso n for Exam Crohns disease Performed By: #### C RP, CMP #### [facility] [address] [place] [address] [place] Sodium [Moles/Vol] 140 mmol/L Normal 136-145 [facility] Comment on above: Order Comment: Reaso n for Exam Crohns disease Performed By: #### C RP, CMP #### [facility] [address] [place] [id number] [place] Urea nitrogen [Mass/Vol] 12 mg/dL Normal 7-25 [facility] Comment on above: Order Comment: Reaso n for Exam Crohns disease Performed By: #### C RP, CMP #### [facility] [address] [place] [address] [place] Creatinine [Mass/volume] in Serum or PlasmaOrdered By: Piter Maharaj on 04-03-2023 Creatinine [Mass/Vol] 0.89 mg/dL 0.60-1.20 [facility] Eosinophils Auto (Bld) [#/Vo l]Ordered By: Piter Maharaj on 04-03-2023 Eosinophils (Bld) [#/Vol] 0.1 10*3/uL 0.0-0.45 [facility] Eosinophils/100 WBC Auto (Bl d)Ordered By: Piter Maharaj on 04-03-2023 Eosinophils/100 WBC (Bld) 1.3 % . [facility] Erythrocyte Sedimentation Ra sri 04-03-2023 ESR (Bld) [Velocity] mm/h Normal 0-19 [facility] Comment on above: Order Comment: Reaso n for Exam Crohns disease Result Comment: PERF ORMED BY: [place] [address] [place] [address] PATHOLOGIST BOX ATTACHER JOANA SALCIDO M.D. Performed By: #### E SR, CBC #### [address] Erythrocyte distribution wid th Auto (RBC) [Ratio]Ordered By: Piter Maharaj on 04-03-2023 Erythrocyte distribution width (RBC) [Ratio] 12.1 % 11.9-15.3 [facility] Erythrocyte sedimentation ra te by Photometric methodOrdered By: Piter Maharaj on 04-03-2023 ESR Photometric method (Bld) [Velocity] < 1 mm/hr 0-19 [facility] Globulin Calc (S) [Mass/Vol] Ordered By: Piter Mahraaj on 04-03-2023 Globulin (S) [Mass/Vol] 2.0 g/dL [facility] Glucose [Mass/volume] in Ser um or PlasmaOrdered By: Piter Maharaj on 04-03-2023 Glucose [Mass/Vol] 91 mg/dL 70-100 [facility] Comment on above: ADA recommended refe rence rangeRandom Glucose Reference Range is dependent on time and content of last meal. Glucose of more than 200 mg/dL in a nonstressed, ambulatory subject supports the diagnosis of Diabetes Mellitus. Hematocrit Auto (Bld) [Volum e fraction]Ordered By: Piter Maharaj on 04-03-2023 Hematocrit (Bld) [Volume fraction] 39.4 % 34.0-46.4 [facility] Hemoglobin [Mass/volume] in BloodOrdered By: Piter Maharaj on 04-03-2023 Hemoglobin (Bld) [Mass/Vol] 13.5 g/dL 11.8-15.4 [facility] Leukocytes [#/volume] correc ricardo for nucleated erythrocytes in Blood by Automated counOrdered By: Piter Maharaj on 04-03-2023 WBC corrected for nucl RBC Auto (Bld) [#/Vol] 6.1 10*3/uL 3.8-11.6 [facility] Lymphocytes Auto (Bld) [#/Vo l]Ordered By: Piter Maharaj on 04-03-2023 Lymphocytes (Bld) [#/Vol] 1.9 10*3/uL 1.00-4.8 [facility] Lymphocytes/100 WBC Auto (Bl d)Ordered By: Piter Maharaj on 04-03-2023 Lymphocytes/100 WBC (Bld) 31.9 % . [facility] MCH Auto (RBC) [Entitic mass ]Ordered By: Piter Maharaj on 04-03-2023 MCH (RBC) [Entitic mass] 30.4 pg 24.7-34.3 [facility] MCHC Auto (RBC) [Mass/Vol]Or dered By: Piter Maharaj on 04-03-2023 MCHC (RBC) [Mass/Vol] 34.2 g/dL 32.0-35.0 [facility] MCV Auto (RBC) [Entitic vol] Ordered By: Piter Maharaj on 04-03-2023 MCV (RBC) [Entitic vol] 88.7 fL 80-100 [facility] Monocytes Auto (Bld) [#/Vol] Ordered By: Piter Maharaj on 04-03-2023 Monocytes (Bld) [#/Vol] 0.5 10*3/uL 0.0-0.8 [facility] Monocytes/100 WBC Auto (Bld) Ordered By: Piter Maharaj on 04-03-2023 Monocytes/100 WBC (Bld) 7.5 % . [facility] Neutrophils Auto (Bld) [#/Vo l]Ordered By: Piter Maharaj on 04-03-2023 Neutrophils (Bld) [#/Vol] 3.5 10*3/uL 1.8-7.7 [facility] Neutrophils/100 WBC Auto (Bl d)Ordered By: Piter Maharaj on 04-03-2023 Neutrophils/100 WBC (Bld) 58.4 % . [facility] No Panel InformationOrdered By: Piter Maharaj on 04-03-2023 Estimated GFR (CKD-EPI) > 60.0 mL/Min [facility] Creatinine Clearance (Chem N/A [facility] Nucleated erythrocytes [Pres ence] in Blood by Automated countOrdered By: Piter Maharaj on 04-03-2023 Nucleated RBC Auto Ql (Bld) 0.2 /100{WBC} 0-0.5 [facility] Platelet mean volume Auto (B ld) [Entitic vol]Ordered By: Piter Maharaj on 04-03-2023 Platelet mean volume (Bld) [Entitic vol] 9.3 fL 6.3-10.7 [facility] Platelets Auto (Bld) [#/Vol] Ordered By: Piter Maharaj on 04-03-2023 Platelets (Bld) [#/Vol] 189 10*3/uL 150-450 [facility] Potassium [Moles/volume] in Serum or PlasmaOrdered By: Piter Maharaj on 04-03-2023 Potassium [Moles/Vol] 3.9 mmol/L 3.5-5.1 [facility] Protein [Mass/volume] in Ser um or PlasmaOrdered By: Piter Maharaj on 04-03-2023 Protein [Mass/Vol] 6.6 g/dL 6.4-8.9 [facility] RBC Auto (Bld) [#/Vol]Ordere d By: Piter Maharaj on 04-03-2023 RBC (Bld) [#/Vol] 4.44 10*6/uL 3.60-5.00 [facility] Serum or plasma albumin/glob ulin mass ratioOrdered By: Piter Maharaj on 04-03-2023 Albumin/Globulin [Mass ratio] 2.3 {ratio} [facility] Serum or plasma anion gap de terminationOrdered By: Piter Maharaj on 04-03-2023 Anion gap [Moles/Vol] 8.9 mmol/L 6.0-15.0 [facility] Sodium [Moles/volume] in Ser um or PlasmaOrdered By: Piter Maharaj on 04-03-2023 Sodium [Moles/Vol] 140 mmol/L 136-145 [facility] Urea nitrogen [Mass/volume] in Serum or PlasmaOrdered By: Piter Maharaj on 04-03-2023 Urea nitrogen [Mass/Vol] 12 mg/dL 7-25 [facility] WBC Auto (Bld) [#/Vol]Ordere d By: Piter Maharaj on 04-03-2023 WBC (Bld) [#/Vol] 6.1 10*3/uL 3.8-11.6 [facility] XR cervical spine w flex/ext on 04-03-2023 XR cervical spine w flex/ext [facility] [place] [address] XRay Report Signed Patient: Alejandra Licona MR#: [id number] : 1990 Acct:[id number] Age/Sex: 32 / F ADM Date: 04/03/23 Loc: XD Room: Type: [facility] Attending Dr: Dutch Pereyra MD Copies to: [...] Brian Muhammad M.D.04/03/2023 7:24 PM Dictation Location: [place] [address] Transcribed By: CHANDLER 04/03/231923 Dictated By: Brian Muhammad II, MD 04/03/231921 Signed By: 04/03/231923 [facility] PREG HCG QUALon 12-11-2022 , QUAL Negative Normal NEGATIVE [facility] Comment on above: Performed By: #### C MVM #### [facility] [address] [place] [address] [address] Niurka Blount PREG HCG QUALon 12-04-2022 , QUAL Negative Normal NEGATIVE [facility] Comment on above: Performed By: #### P REG #### [facility] [address] [place] [address] [address] Niurka Blount Coding Summary.on 11-17-2022 Coding Summary. CD:[id number] bWw+PGhlYWQ+UQ9KTPL fF62xcQVsyD5uX4BOAU lOSywgQVBQTElOSyIgb uJjAN4aqLYmZGSu IC8+SI2jSUVnKbdmpPG zk3P9yJE9Z36pnh4zCT ecpNA2IRGoTgJmdpoit 9xktUp8MJdzPtpgZmUr PUYelM14NMN9bP14Mc3 6sJNskXDwc7mrxGu5Ot XoFKAeATI7pKbcHKxse 9RxCEAnX83igOVer4M3 IGNvbGxhcHNlOyBlbXB 1pK6bHMoghptvz5agpf noFgc1nu98aXHty9M6o QE4Y8DtdeE7HDLcxNWz HizbrUAFgP1jpnntv0s bqokhKlViDDGbTRr6DV z5DNPjkQzkXaKhQI48V XT3YYMjepXqX5TpQPXx jJnrCsV1n9N2Jc1ML9J PBmwfC6ZCJOTVOFwfeQ Q+XJ00dd20S6GdPthrD wc0QCNaATU4xZC4pR4o HKZfMNeqi2S4aQQ4D2K tzoWeii1si8jaTCTqOC mmK31nkJBuh8B1IAWrd FQ8YJPzzDcyAmNonG34 Oyc+FZJuwGeru8IlGui qx6wfo2hjlKb9PfefPG YkieNwjBjgCHB2v9KdO e8iKHUwpCJ7yIG2tH0r OlWnIkB1TNdbC265KlH vcCIsWvqaF44iE7QukQ A+ETNlZdh8RHEjjFspD A7dK8SuJXPaqmmblVPt sWexQD4xNXXhydceSAD glV8xLQRjK6i6JgKiWx H0WZqqD9AlUIYwnbkpC g09hT7nGuSlNwK5VMjn C3VcpxP1MLCpsEBxIZa iPCH4R68de7N7WFGlAX JoAMQ1nKI5yR6rySdqe jogbGVmdDsgdmVydGlj QVnoLQfoR742TXTkpYe nPkNvZGluZyBEYXRlOi AgMDQvMDgvMjAyMzwvd GQ+WOChVIH9gJgqUGWc zNPqHXjzLr4fcXzedWy iET0aNFJxijclIWCauC 9lTQYyyHKkzZzlNK7wO IXcunvra451RqRuVYR2 WXDqhJRcY1ZouM2rLgW yOLGxPDJhN8BrkTKgLN maV151VFzsVuJ6NEIwz bUjX4KoPEWhpTjmRjF7 r7P3Xz1Ye8MpodxaU9L ryGEaVjQhUegrTQy2O0 RkPjwvdHI+XH56GUUbQ I77DGg0CWL3rDxdXGev UTGvR6UmiT3lKeCiLYX kZGRkOyc+PHRhYmxlIH dpZHRoPScxMDAlJyBzd BbnUF0yEc5zPKMoSCFx oBphsPMsCxBig7gcRKO oYDqlOY6fjKswY1NngM J9ZUDfx8n7Ns69D19vK 3JvdXA+ESWrdNY4xNC8 xP5jWqGjJyW1VBigO05 1PyVpoWWxUwekj1dml0 xknFy7LdZ9YBYobsIgg JsvDKZ1z7CtWl36W58d IHdpZHRoPSIxNSUiIHZ kwFbktq9thL7bLb1+PG LeiBO8hXN4zN6kIpSoN pG3FSwaG250HzTvdDAg Otyvk9vie7acnCd3AoR aRDVpchAmiFyhXWL5n3 XsFv96I7PknRusf6IiE nr6va49aZQmb3G3oSQ1 G2YzGPFjzwcvgPMgpKw wAE9aAMRectebMLDooQ 9zRABwX1a4KiKiMjT0Y RboN8QewvT0WXUvaVPq JMKaoAAXmK6lkoeoy8t dcrtpIcKrGNBqVDj0RF v3SRUmsJgxWoWdRIB7Z oJ4ZKD4xGAfqW6cbZik utgqsK4tZzp+RXH0gNR piICVNH9pPbeyyJY+PH CfKVO8pGtpSDwqXXNzb W5xCKVoR2v8QzTmUkF8 KKsfZ2KyceB3WZRvrTK dQKJmoZKOrB5zbhkyr2 bytggdOoFgHJSaXQn0L Zg1OYGfkZawFrVdISI2 XyF7VPG4yMZpgM2msWx cdwmysH3iRqc+QmlydG gqEWE9IFc4Z6BrWlx1U WEqkLfvDJ8zfKAeHJyc Nh9joCclvRiwUG5dUIT udirhp923JsKkn0lpHZ QtgFEeVMixWFB2K95da 3O0QQFfPXCsQTS2nQK7 uV5dyKrtwdnkwRYchYn gdmVydGljYWwtYWxpZ2 15ERWquArySxVlIGt9P 3LwYcf3XBAvcAudEA2o rXZnNSgtRq7uxDdysWx dXG9bWZEzrcesh010Ls Iaa2ckSRFsdTUaMSjsE OV8S83ay8M2VCOnHQKe EXP1gKG5pB2zeLsdmzh gbGVmdDsgdmVydGljYW ydZEnuZ684EJVnnFspM cGhyQq9V5GfYzr2CAFn aLhuGT0blFJjKLjgEk3 nwMkgkFozXC5sASFohm mzy496VvEpe0jyWTRco IBbZYezVWG7J53fb7V1 FUGwUVYdLOR6uUQ2fM9 hbGlnbjogbGVmdDsgdm WhrTrqDCtfLVbcM810V HRvcDsnPlBhdGllbnQg HTdlJCj9Z9YdIxjlqPX +VO29GYAtXU13fDFbfG Obo5asqEu5AzQdIPIbX CE5vNqbOMqik8IuMCRu C61slIBkx7I2BESorCb fxXDgTqZuwWX0iG1fUZ bqwgshy3faqporUiygb 6kejt95nA79S34rLUnx ZHRoPSIzMCUiIHZhbGl mgc0fnM9jEx8+PGNvbC M9tSZ0gT3oMHDwWrY8N YvqS071KtHayDLsOhmm v8pcz7tlrXe7WyC5MVV oueSndOhaLIT9h1OsKs 07A08pHIvmPGAsILDjR XPtAEHmxJsnpl9cnZ6n Ii8+HFSvwZZ0nTR2tE3 sCbScHgG0BYvnL302Al GzsGSdIdhaR07zA3Ykj XA+WIYtVcb1IKZgvStq UB9neKLhEJtfGt9pLRB 1FcAyKmSySFjhL4VcUO TetsqxpkzzeEK4FVTnA SDypH52Kg4xzJuoCZKk qLLMaL2bcwich9dgvck oIoOyLGBnKVi4FTf1YR MnrEkhUaPeJKK8HhZ6Z YJ8nOGniM4arDqmktzj nE5yV0FtATUxpgidYh0 3qH8pAhStZvE4ADejYm c+VU9RGx7MXkgpHSsRC FkgTTwvdGQ+PHRkIHN0 dMujTOebEBIfuL6vSRJ gO8i3DfObJyQ7CShcC7 AgXUAdkyzbPm25zT3uG lPzJmD6AZadA8BpkjJ1 DWHknTCmYJkcMST0B22 fg2M4RSTbGHBdCJN3bT Z2rK2xkWuqqqqrgEKga DsgdmVydGljYWwtYWxp W273EUOkzHkaIySlFkI nWlT5QSX4J5AtNog5QV GtoEbvRU5uvDTvZQmbX i3gxSxhsEwjIZ7fGFDq cszdGZYlaV2uHKDdeOO teZmpBQ7qAHEduiren5 39TpDcYBV6AHYakEDcN 2ZppM1lDkQbUYSmCDCw S9DdjNQtCSslL974ZQu jAtO5ZSSsoeGvG0FtIH KofOukHbS6n1S3Oe6mC iBZZWFyczwvdGQ+PHRk JTF6pSgvEDcjPZFwaF7 iAUVdJ0l9GvOuFwZ1FE uxO9NrOCDxrtdlBr26w H5aZaQaMnZ9ZKkyM2Cp iqN6GFKiyCLyQQanXKY 3D18uf4T8QUTyVBTjHF O7hFJ4bO8szTjwvwlnh GVmdDsgdmVydGljYWwt GYxyI319KRRzmJyrRhR lbWFsZTwvdGQ+PHRkIH K2bSxkXYokPCWgzV7dO BYvJ8n0FqHuWnG4YUgl U8MtGBGodetwBp71xE0 dRcQlDxP2QTxpD7Xpbd N0SWNdhWGrMTmjNNJ5H 83nt5P8BBLtXGEjVAP4 hSQ5gC9ujRijtnpwaYL mdDsgdmVydGljYWwtYW nbE760IMDbrNknPkbwM xGFpe5nUV2sNecnrGJ+ EL97rg91P5ShSnusWcq 0PYXkEQC4fGH4nV7cDR JeDOvlo7M5lCM5V8Qip rPqxm0hg0ktHGCdWIpi M60tjTHyk7C7RHMlvRK 8NOGxpPrdEyAhgZ94Zt c+XPEdeKamc5LyAultl 0tyq9ilfSk4AbRtJEEu cyMprPjdYMJ3d0XjDk1 6I10rECbiEHZjWKZmZK HjTJLceWxnvl9sfS9hH i8+UOKftLN9mOA7aR2g OtDzBpP2CRzmW763LrQ skRAlYvgem8twu6eyhO v0BfXpUPVrioQhbMtyC YG1m3LnJe69M7ButYjk w0RoQoy3jy52kZAfp2N 7vAW8H0VnSTHskyxgiB YhrKabUA0lAULtigqrP KJmkY8pVBUlG8m4HqQa NvW0CWvoP6AdbkL8PMH yvMRqJHEsiOBHzC7rex bmz5bqpaplFkYzNMJnY Lz2BPq3ZZLhpBumLwCi KCS2DyD7HCW5cJFlgP8 xdEmybhqaqK5fFti+UG x6l6kduAThYN7upGQ6B O91TB91uECvh1F5aSC2 W7ZfPUXbfnwabvuqkXW 9HEUpENGkaF04Mm3ylY jkVa4zVKCnKOH1AQLrn VKrG3ZsaR3hRyRoJXFr ISGkA1SujNXbZZsvQ71 0OZcyPbR8CTXsrhCuM5 IaNGDtiGbkRyD7q7N8U q9JOL91ZB66UX64bSVe s9F5nMK4U0WeKLDnlrb qqazsxLP1RXGuKPEfaM 27Jj7uzXllMx0hEYRyU DG1JEIbdKShS4YyjO1h DmKpEIRwFRIqI4RrfUV uPHjkW640TDphGxE0OT PlxzBaT3GpOQGrrSytH mN5j0K0Mc4FAa89NE82 BX17wQKob6X4pIB8J7P mDPDzdzrqpqbmlSX0MC GqNKWqoC54Rn1cuJelA q3aPNUyOYR8RTQftOIv E8IltW1pPyJdYVLgNKQ jK6FnoMUjGAhkP581GN uhExX1LUDwoxCcK3RgK VAisAhzMxK5i1K6Jl8C ILynpbj0Z8DeNharpGX +UP34LGKyHK67sCHevJ Yrs6ahzZm0CjNdIEYoH MX6kDbuLFozz1NlOCMk C16ocNBs (more content not included)... Normal [facility] Physician Orderon 11-07-2022 Physician Order [id number]:127 Normal [facility] Basic Metabolic Panelon 10-10 Anion gap [Moles/Vol] 12.5 mmol/L Normal 6.0-15.0 [facility] Comment on above: Order Comment: Reaso n for Exam Preprocedural examination Performed By: #### C BC, BMP #### [address] Calcium [Mass/Vol] 9.4 mg/dL Normal 8.6-10.3 [facility] Comment on above: Order Comment: Reaso n for Exam Preprocedural examination Result Comment: PERF ORMED BY: [place] [address] PATHOLOGIST BOX ATTACHER JOANA SALCIDO M.D. Performed By: #### C BC, BMP #### [facility] [address] [place] [address] [place] Chloride [Moles/Vol] 105 mmol/L Normal 98-107 [facility] Comment on above: Order Comment: Reaso n for Exam Preprocedural examination Performed By: #### C BC, BMP #### [facility] [address] CO2 [Moles/Vol] 26.4 mmol/L Normal 21.0-31.0 [facility] Comment on above: Order Comment: Reaso n for Exam Preprocedural examination Performed By: #### C BC, BMP #### [address] Creatinine [Mass/Vol] 0.91 mg/dL Normal 0.60-1.20 [facility] Comment on above: Order Comment: Reaso n for Exam Preprocedural examination Performed By: #### C BC, BMP #### [place] [address] [place] GFR/1.73 sq M.predicted MDRD (S/P/Bld) [Vol rate/Area] mL/min/{1.73_m2} [facility] Comment on above: Order Comment: Reaso n for Exam Preprocedural examination Performed By: #### C BC, BMP #### [place] [address] [place] Glucose [Mass/Vol] 91 mg/dL Normal 74-109 [facility] Comment on above: Order Comment: Reaso n for Exam Preprocedural examination Result Comment: [place] om Glucose Reference Range is dependent on time and content of last meal. Glucose of more than 200 mg/dL in a nonstressed, ambulatory subject supports the diagnosis of Diabetes Mellitus. ADA recommended reference range Performed By: #### C BC, BMP #### [address] Potassium [Moles/Vol] 3.9 mmol/L Normal 3.5-5.1 [facility] Comment on above: Order Comment: Reaso n for Exam Preprocedural examination Performed By: #### C BC, BMP #### [facility] [address] Sodium [Moles/Vol] 140 mmol/L Normal 136-145 [facility] Comment on above: Order Comment: Reaso n for Exam Preprocedural examination Performed By: #### C BC, BMP #### [facility] [address] Urea nitrogen [Mass/Vol] 15 mg/dL Normal 7-25 [facility] Comment on above: Order Comment: Reaso n for Exam Preprocedural examination Performed By: #### C BC, BMP #### [facility] [address] Basophils Auto (Bld) [#/Vol] Ordered By: Gilbert Chauhan on 10-26-2022 Basophils (Bld) [#/Vol] 0.1 10*3/uL 0.0-0.2 [facility] Basophils/100 WBC Auto (Bld) Ordered By: Gilbert Chauhan on 10-26-2022 Basophils/100 WBC (Bld) 0.8 % . [facility] Calcium [Mass/volume] in Ser um or PlasmaOrdered By: Gilbert Chauhan on 10-26-2022 Calcium [Mass/Vol] 9.4 mg/dL 8.6-10.3 [facility] Carbon dioxide, total [Moles /volume] in Serum or PlasmaOrdered By: Gilbert Chauhan on 10-26-2022 CO2 [Moles/Vol] 26.4 mmol/L 21.0-31.0 [facility] Chloride [Moles/volume] in S darwin or PlasmaOrdered By: Gilbert Chauhan on 10-26-2022 Chloride [Moles/Vol] 105 mmol/L 98-107 [facility] Complete Blood Count Auto Di ffon 10-26-2022 Basophils (Bld) [#/Vol] 0.1 10*3/uL Normal 0.0-0.2 [facility] Comment on above: Order Comment: Reaso n for Exam Preprocedural examination Result Comment: PERF ORMED BY: [place] [address] PATHOLOGIST BOX ATTACHER JOANA SALCIDO M.D. Performed By: #### C BC, BMP #### [facility] [address] [place] [address] [place] Basophils/100 WBC (Bld) 0.8 % Normal . [facility] Comment on above: Order Comment: Reaso n for Exam Preprocedural examination Performed By: #### C BC, BMP #### [place] [address] [place] Eosinophils (Bld) [#/Vol] 0.1 10*3/uL Normal 0.0-0.45 [facility] Comment on above: Order Comment: Reaso n for Exam Preprocedural examination Performed By: #### C BC, BMP #### [place] [address] [place] Eosinophils/100 WBC (Bld) 1.6 % Normal . [facility] Comment on above: Order Comment: Reaso n for Exam Preprocedural examination Performed By: #### C BC, BMP #### [address] Erythrocyte distribution width (RBC) [Ratio] 12.3 % Normal 11.9-15.3 [facility] Comment on above: Order Comment: Reaso n for Exam Preprocedural examination Performed By: #### C BC, BMP #### [address] Hematocrit (Bld) [Volume fraction] 39.7 % Normal 34.0-46.4 [facility] Comment on above: Order Comment: Reaso n for Exam Preprocedural examination Performed By: #### C BC, BMP #### [place] [address] [place] Hemoglobin (Bld) [Mass/Vol] 13.9 g/dL Normal 11.8-15.4 [facility] Comment on above: Order Comment: Reaso n for Exam Preprocedural examination Performed By: #### C BC, BMP #### [address] Lymphocytes (Bld) [#/Vol] 1.5 10*3/uL Normal 1.00-4.8 [facility] Comment on above: Order Comment: Reaso n for Exam Preprocedural examination Performed By: #### C BC, BMP #### [address] Lymphocytes/100 WBC (Bld) 20.0 % Normal . [facility] Comment on above: Order Comment: Reaso n for Exam Preprocedural examination Performed By: #### C BC, BMP #### [address] MCH (RBC) [Entitic mass] 30.9 pg Normal 24.7-34.3 [facility] Comment on above: Order Comment: Reaso n for Exam Preprocedural examination Performed By: #### C BC, BMP #### [address] MCV (RBC) [Entitic vol] 88.2 fL Normal 80-100 [facility] Comment on above: Order Comment: Reaso n for Exam Preprocedural examination Performed By: #### C BC, BMP #### [address] Mean Corpuscular HGB Conc 35.1 g/dL High 32.0-35.0 [facility] Comment on above: Order Comment: Reaso n for Exam Preprocedural examination Performed By: #### C BC, BMP #### [place] [address] [place] Monocytes (Bld) [#/Vol] 0.6 10*3/uL Normal 0.0-0.8 [facility] Comment on above: Order Comment: Reaso n for Exam Preprocedural examination Performed By: #### C BC, BMP #### [address] Monocytes/100 WBC (Bld) 7.6 % Normal . [facility] Comment on above: Order Comment: Reaso n for Exam Preprocedural examination Performed By: #### C BC, BMP #### [facility] [address] Neutrophils (Bld) [#/Vol] 5.1 10*3/uL Normal 1.8-7.7 [facility] Comment on above: Order Comment: Reaso n for Exam Preprocedural examination Performed By: #### C BC, BMP #### [facility] [address] Neutrophils/100 WBC (Bld) 70.0 % Normal . [facility] Comment on above: Order Comment: Reaso n for Exam Preprocedural examination Performed By: #### C BC, BMP #### [facility] [address] [place] [address] NRBC% 0.3 /100{WBC} Normal 0-0.5 [facility] Comment on above: Order Comment: Reaso n for Exam Preprocedural examination Performed By: #### C BC, BMP #### [facility] [address] [place] [address] Platelet mean volume (Bld) [Entitic vol] 9.7 fL Normal 6.3-10.7 [facility] Comment on above: Order Comment: Reaso n for Exam Preprocedural examination Performed By: #### C BC, BMP #### [facility] [address] [place] [address] [place] Platelets (Bld) [#/Vol] 188 10*3/uL Normal 150-450 [facility] Comment on above: Order Comment: Reaso n for Exam Preprocedural examination Performed By: #### C BC, BMP #### [facility] [address] [place] [address] [place] RBC (Bld) [#/Vol] 4.50 10*6/uL Normal 3.60-5.00 [facility] Comment on above: Order Comment: Reaso n for Exam Preprocedural examination Performed By: #### C BC, BMP #### [facility] [address] [place] [id number] [place] WBC (Bld) [#/Vol] 7.3 10*3/uL Normal 3.8-11.6 [facility] Comment on above: Order Comment: Reaso n for Exam Preprocedural examination Performed By: #### C JAMEY, BMP #### [facility] [address] [place] [id number] [place] Creatinine [Mass/volume] in Serum or PlasmaOrdered By: Gilbert Chauhan on 10-26-2022 Creatinine [Mass/Vol] 0.91 mg/dL 0.60-1.20 [facility] Eosinophils Auto (Bld) [#/Vo l]Ordered By: Gilbert Chauhan on 10-26-2022 Eosinophils (Bld) [#/Vol] 0.1 10*3/uL 0.0-0.45 [facility] Eosinophils/100 WBC Auto (Bl d)Ordered By: Gilbert Chauhan on 10-26-2022 Eosinophils/100 WBC (Bld) 1.6 % . [facility] Erythrocyte distribution wid th Auto (RBC) [Ratio]Ordered By: Gilbert Chauhan on 10-26-2022 Erythrocyte distribution width (RBC) [Ratio] 12.3 % 11.9-15.3 [facility] Glucose [Mass/volume] in Ser um or PlasmaOrdered By: Gilbert Chauhan on 10-26-2022 Glucose [Mass/Vol] 91 mg/dL 74-109 [facility] Comment on above: ADA recommended refe rence rangeRandom Glucose Reference Range is dependent on time and content of last meal. Glucose of more than 200 mg/dL in a nonstressed, ambulatory subject supports the diagnosis of Diabetes Mellitus. Hematocrit Auto (Bld) [Volum e fraction]Ordered By: Gilbert Chauhan on 10-26-2022 Hematocrit (Bld) [Volume fraction] 39.7 % 34.0-46.4 [facility] Hemoglobin [Mass/volume] in BloodOrdered By: Gilbert Chauhan on 10-26-2022 Hemoglobin (Bld) [Mass/Vol] 13.9 g/dL 11.8-15.4 [facility] Laboratory - Chemistry and C hemistry - challengeOrdered By: Gilbert Chauhan on 10-26-2022 GFR/1.73 sq M.predicted MDRD (S/P/Bld) [Vol rate/Area] mL/min/{1.73_m2} [facility] Leukocytes [#/volume] correc ricardo for nucleated erythrocytes in Blood by Automated counOrdered By: Gilbert Chauhan on 10-26-2022 WBC corrected for nucl RBC Auto (Bld) [#/Vol] 7.3 10*3/uL 3.8-11.6 [facility] Lymphocytes Auto (Bld) [#/Vo l]Ordered By: Gilbert Chauhan on 10-26-2022 Lymphocytes (Bld) [#/Vol] 1.5 10*3/uL 1.00-4.8 [facility] Lymphocytes/100 WBC Auto (Bl d)Ordered By: Gilbert Chauhan on 10-26-2022 Lymphocytes/100 WBC (Bld) 20.0 % . [facility] MCH Auto (RBC) [Entitic mass ]Ordered By: Gilbert Chauhan on 10-26-2022 MCH (RBC) [Entitic mass] 30.9 pg 24.7-34.3 [facility] MCHC Auto (RBC) [Mass/Vol]Or dered By: Gilbert Chauhan on 10-26-2022 MCHC (RBC) [Mass/Vol] 35.1 g/dL 32.0-35.0 [facility] MCV Auto (RBC) [Entitic vol] Ordered By: Gilbert Chauhan on 10-26-2022 MCV (RBC) [Entitic vol] 88.2 fL 80-100 [facility] Monocytes Auto (Bld) [#/Vol] Ordered By: Gilbert Chauhan on 10-26-2022 Monocytes (Bld) [#/Vol] 0.6 10*3/uL 0.0-0.8 [facility] Monocytes/100 WBC Auto (Bld) Ordered By: Gilbert Chauhan on 10-26-2022 Monocytes/100 WBC (Bld) 7.6 % . [facility] Neutrophils Auto (Bld) [#/Vo l]Ordered By: Gilbert Chauhan on 10-26-2022 Neutrophils (Bld) [#/Vol] 5.1 10*3/uL 1.8-7.7 [facility] Neutrophils/100 WBC Auto (Bl d)Ordered By: Gilbert Chauhan on 10-26-2022 Neutrophils/100 WBC (Bld) 70.0 % . [facility] No Panel InformationOrdered By: Gilbert Chauhan on 10-26-2022 Pharmacy Creatinine Clearance (Chem N/A [facility] Nucleated erythrocytes [Pres ence] in Blood by Automated countOrdered By: Gilbert Chauhan on 10-26-2022 Nucleated RBC Auto Ql (Bld) 0.3 /100{WBC} 0-0.5 [facility] Platelet mean volume Auto (B ld) [Entitic vol]Ordered By: Gilbert Chauhan on 10-26-2022 Platelet mean volume (Bld) [Entitic vol] 9.7 fL 6.3-10.7 [facility] Platelets Auto (Bld) [#/Vol] Ordered By: Gilbert Chauhan on 10-26-2022 Platelets (Bld) [#/Vol] 188 10*3/uL 150-450 [facility] Potassium [Moles/volume] in Serum or PlasmaOrdered By: Gilbert Chauhan on 10-26-2022 Potassium [Moles/Vol] 3.9 mmol/L 3.5-5.1 [facility] RBC Auto (Bld) [#/Vol]Ordere d By: Gilbert Chauhan on 10-26-2022 RBC (Bld) [#/Vol] 4.50 10*6/uL 3.60-5.00 [facility] Serum or plasma anion gap de terminationOrdered By: Gilbert Chauhan on 10-26-2022 Anion gap [Moles/Vol] 12.5 mmol/L 6.0-15.0 [facility] Sodium [Moles/volume] in Ser um or PlasmaOrdered By: Gilbert Chauhan on 10-26-2022 Sodium [Moles/Vol] 140 mmol/L 136-145 [facility] Urea nitrogen [Mass/volume] in Serum or PlasmaOrdered By: Gilbert Chauhan on 10-26-2022 Urea nitrogen [Mass/Vol] 15 mg/dL 7 [facility] WBC Auto (Bld) [#/Vol]Ordere d By: Gilbert Chauhan on 10-26-2022 WBC (Bld) [#/Vol] 7.3 10*3/uL 3.8-11.6 [facility] XR chest 2V*on 10-26-2022 XR chest 2V* [facility] [place] [address] [place] [address] XRay Report Signed Patient: Alejandra Licona MR#: [id number] : 1990 Acct:[id number] Age/Sex: 32 / F ADM Date: 10/26/22 Loc: XD Room: Type: [facility] Attending Dr: Gilbert Chauhan DPAngely Copies to: [...] Lares Jr., DChaniOChani10/26/2022 5:47 PM Dictation Location: [place] [address] Transcribed By: [facility] 10/26/221746 Dictated By: Waylon Lares Jr, DO 10/26/221746 Signed By: 10/26/221746 Normal [facility] PREG HCG QUALon 10-09-2022 , QUAL Negative Normal NEGATIVE [facility] Comment on above: Performed By: #### P REG #### [facility] [address] [place] [address] [address] HEAD WO CONon [...] by: DEANN THOMASON Date: 2022-09-21 14:32 Normal [facility] XR ankle LT min 3V*on 2022 XR ankle LT min 3V* [facility] [place] [address] [place] [address] XRay Report Signed Patient: Alejandra Licona MR#: [id number] : 1990 Acct:[id number] Age/Sex: 31 / F ADM Date: 08/23/22 Loc: XDUCLY Room: Type: [facility] Attending Dr: Marla Winslow APRN Copies to: Marla Winslow APRN Ordering Provider: Marla Winslow APRN Date of Service: 08/23/22 XR/XR ankle LT min 3V*: LEFT ANKLE INJURY 3views LEFTankle COMPARISON:None HISTORY: LEFT ankle injury No fracture, dislocation or focal soft tissue abnormality seen. XR/XR ankle LT min 3V* IMPRESSION: No acute findings. Impression dictated by: Carrington Flores M.D.08/23/2022 2:20 PM Dictation Location: [place] [address] Transcribed By: [facility] 08/23/22 1420 Dictated By: Carrington Flores DO 08/23/22 1345 Signed By: 08/23/22 1420 Normal [facility] PREG HCG QUALon 08-21-2022 , QUAL Negative Normal NEGATIVE [facility] Comment on above: Performed By: #### S EDR #### [facility] [address] [place] [address] Dr. Niurka Blount CMV AB IGMon 07-21-2022 Cytomegalovirus (CMV) Ab, IgM <30.0 Normal 0.0-29.9 [facility] Comment on above: Result Comment: Nega tive <30.0 Equivocal 30.0 - 34.9 Positive >34.9 A positive result is generally indicative of acute infection, reactivation or persistent IgM production. Performed By: #### C MVM #### [facility] [address] [place] [address] Dr. Niurka Blount CMV AB, IGGon 07-21-2022 Cytomegalovirus (CMV) Ab, IgG <0.60 Normal 0.00-0.59 [facility] Comment on above: Result Comment: Nega tive <0.60 Equivocal 0.60 - 0.69 Positive >0.69 Performed By: #### C MVIGG #### [facility] [address] [place] [address] Dr. Niurka Blount CBC AUTO DIFFon 07-17-2022 BASO # 0.0 103/ul Normal 0.0-0.1 [facility] Comment on above: Performed By: #### S EDR #### [facility] [address] [place] [address] Dr. Niurka Blount Basophils/100 WBC (Bld) 0.4 % Normal 0.2-2.0 [facility] Comment on above: Performed By: #### S EDR #### [facility] [address] [place] [address] Dr. Niurka Blount EO # 0.0 103/ul Normal 0.0-0.7 [facility] Comment on above: Performed By: #### S EDR #### [facility] [address] [place] [address] Dr. Niurka Blount Eosinophils/100 WBC (Bld) 0.0 % Critically low 0.9-7.0 [facility] Comment on above: Performed By: #### S EDR #### [facility] [address] [place] [address] Dr. Niurka Blount Erythrocyte distribution width (RBC) [Ratio] 11.4 % Normal 11.0-15.0 [facility] Comment on above: Performed By: #### S EDR #### [facility] [address] [place] [address] [address] Niurka Blount Hematocrit (Bld) [Volume fraction] 40.2 % Normal 36.0-48.0 [facility] Comment on above: Performed By: #### S EDR #### [facility] [address] [place] [address] Dr. Niurka Blount Hemoglobin (Bld) [Mass/Vol] 14.5 g/dL Normal 12.0-16.0 [facility] Comment on above: Performed By: #### S EDR #### [facility] [address] [place] [address] Dr. Niurka Blount IG # 0.08 10e3/ul Critically high 0.00-0.03 [facility] Comment on above: Performed By: #### S EDR #### [facility] [address] [place] [address] Dr. Niurka Blount IG % 0.8 % Critically high 0.0-0.5 [facility] Comment on above: Performed By: #### S EDR #### [facility] [address] [place] [address] Dr. Niurka Blount LYMPH # 1.3 103/ul Normal 1.2-3.8 [facility] Comment on above: Performed By: #### S EDR #### [facility] [address] [place] [address] Dr. Niurka Blount Lymphocytes/100 WBC (Bld) 12.0 % Critically low 20.5-60.0 [facility] Comment on above: Performed By: #### S EDR #### [facility] [address] [place] [address] Dr. Niurka Blount MANUAL DIFF REQ NO Normal [facility] Comment on above: Performed By: #### S EDR #### [facility] [address] [place] [address] Dr. Niurka Blount MCH (RBC) [Entitic mass] 30.5 pg Normal 26.7-34.0 [facility] Comment on above: Performed By: #### S EDR #### [facility] [address] [place] [address] [address] Niurka Blount MCHC (RBC) [Mass/Vol] 36.1 g/dL Critically high 29.9-35.2 [facility] Comment on above: Performed By: #### S EDR #### [facility] [address] [place] [address] [address] Niurka Blount MCV (RBC) [Entitic vol] 84.6 fL Normal 81.0-99.0 [facility] Comment on above: Performed By: #### S EDR #### [facility] [address] [place] [address] [address] Niurka Blount MONO # 0.6 103/ul Normal 0.3-0.8 [facility] Comment on above: Performed By: #### S EDR #### [facility] [address] [place] [address] Dr. Niurka Blount Monocytes/100 WBC (Bld) 5.6 % Normal 1.7-12.0 [facility] Comment on above: Performed By: #### S EDR #### [facility] [address] [place] [address] [address] Niurka Blount NEUT # 8.5 103/ul Critically high 1.4-6.5 [facility] Comment on above: Performed By: #### S EDR #### [facility] [address] [place] [address] Dr. Niurka Blount Neutrophils/100 WBC (Bld) 81.2 % Critically high 43.0-75.0 [facility] Comment on above: Performed By: #### S EDR #### [facility] [address] [place] [address] [address] Niurka Blount Platelet mean volume (Bld) [Entitic vol] 10.6 fL Normal 9.5-13.5 [facility] Comment on above: Performed By: #### S EDR #### [facility] [address] [place] [address] [address] Niurka Blount PLT 277 103/ul Normal 150-450 [facility] Comment on above: Performed By: #### S EDR #### [facility] [address] [place] [address] [address] Niurka Blount RBC 4.75 106/ul Normal 4.20-5.40 [facility] Comment on above: Performed By: #### S EDR #### [facility] [address] [place] [address] Dr. Niurka Blount WBC 10.5 103/ul Normal 4.0-11.0 [facility] Comment on above: Performed By: #### S EDR #### [facility] [address] [place] [address] Dr. Niurka Blount CRPon 07-17-2022 CRP [Mass/Vol] mg/L Normal <=1.0 [facility] Comment on above: Performed By: #### C MVM #### [facility] [address] [place] [address] ABD/PELV W CONon [...] changes. Right ovarian cyst. Electronically authenticated by: AVNNA GARLAND Date: 2022-07-17 18:12 Normal [facility] URINE PROFILEon 2 Bilirubin Ql (U) Negative Normal NEGATIVE [facility] Comment on above: Performed By: #### E RUR #### [facility] [address] [place] [address] Dr. Niurka Blount Clarity (U) CLEAR Normal CLEAR [facility] Comment on above: Performed By: #### E RUR #### [facility] [address] [place] [address] Dr. Niurka Blount Color (U) LT. YELLOW Normal YELLOW [facility] Comment on above: Performed By: #### E RUR #### [facility] [address] [place] [address] Dr. Niurka PARRISH A micrscopic examination will be performed if indicated. Normal [facility] Comment on above: Performed By: #### E RUR #### [facility] [address] [place] [address] Dr. Niurka Blount Glucose Ql (U) Negative Normal NEGATIVE [facility] Comment on above: Performed By: #### E RUR #### [facility] [address] [place] [address] Dr. Niurka Blount Hemoglobin Ql (U) Negative Normal NEGATIVE [facility] Comment on above: Performed By: #### E RUR #### [facility] [address] [place] [address] Dr. Niurka Blount Ketones Ql (U) Negative Normal NEGATIVE [facility] Comment on above: Performed By: #### E RUR #### [facility] [address] [place] [address] Dr. Niurka Blount LEUKOCYTES Negative Normal NEGATIVE [facility] Comment on above: Performed By: #### E RUR #### [facility] [address] [place] [address] Dr. Niurka Blount Nitrite Ql (U) Negative Normal NEGATIVE [facility] Comment on above: Performed By: #### E RUR #### [facility] [address] [place] [address] Dr. Niurka Blount pH (U) 6.0 [pH] Normal 5-9 [facility] Comment on above: Performed By: #### E RUR #### [facility] [address] [place] [address] Dr. Niurka Blount SPEC GRAVITY 1.010 Normal 1.005-<=1.025 [facility] Comment on above: Performed By: #### E RUR #### [facility] [address] [place] [address] Dr. Niurka Blount UA PROTEIN Negative Normal NEGATIVE/ TRACE [facility] Comment on above: Performed By: #### E RUR #### [facility] [address] [place] [address] Dr. Niurka Blount UR MICRO IND NOT INDICATED Normal [facility] Comment on above: Performed By: #### E RUR #### [facility] [address] [place] [address] Dr. Niurka Blount Urobilinogen Qn (U) 0.2 {David'U}/dL Normal 0.2 - 1. 0 [facility] Comment on above: Performed By: #### E RUR #### [facility] [address] [place] [address] Dr. Niurka Blount LACTATE/LACTIC ACIDon 2021 Lactate [Moles/Vol] 1.6 mmol/L Normal 0.4-1.9 [facility] Comment on above: Performed By: #### E RUR #### [facility] [address] [place] [address] Dr. Niurka Blount LIPASEon 07-17-2022 Lipase [Catalytic activity/Vol] 105.0 U/L Normal 73.0-393.0 [facility] Comment on above: Performed By: #### C MVM #### [facility] [address] [place] [address] Dr. Niurka Blount PREG HCG QUALon 07-17-2022 , QUAL Negative Normal NEGATIVE [facility] Comment on above: Performed By: #### P REG #### [facility] [address] [place] [address] Dr. Niurka Blount PROF 14(COMP METB)on 022 Albumin [Mass/Vol] 4.4 g/dL Normal 3.4-5.0 [facility] Comment on above: Performed By: #### C MVM #### [facility] [address] [place] [address] Dr. Niurka Blount Albumin/Globulin [Mass ratio] 1.4 {ratio} Normal [facility] Comment on above: Performed By: #### C MVM #### [facility] [address] [place] [address] Dr. Niurka Blount ALP [Catalytic activity/Vol] 82 U/L Normal 46-116 [facility] Comment on above: Performed By: #### C MVM #### [facility] [address] [place] [address] Dr. Niurka Blount ALT [Catalytic activity/Vol] 16 U/L Normal 14-59 [facility] Comment on above: Performed By: #### C MVM #### [facility] [address] [place] [address] Dr. Niurka Blount Anion gap [Moles/Vol] 11.6 mmol/L Normal [facility] Comment on above: Performed By: #### C MVM #### [facility] [address] [place] [address] Dr. Niurka Blount AST [Catalytic activity/Vol] 7 U/L Critically low 15-37 [facility] Comment on above: Performed By: #### C MVM #### [facility] [address] [place] [address] Dr. Niurka Blount Bilirubin [Mass/Vol] 0.6 mg/dL Normal 0.2-1.0 [facility] Comment on above: Performed By: #### C MVM #### [facility] [address] [place] [address] Dr. Niurka Blount Calcium [Mass/Vol] 8.8 mg/dL Normal 8.5-10.1 [facility] Comment on above: Performed By: #### C MVM #### [facility] [address] [address] [address] Niurka Blount Chloride [Moles/Vol] 103 mmol/L Normal 98-107 [facility] Comment on above: Performed By: #### C MVM #### [facility] [address] [place] [address] Dr. Niurka Blount CO2 [Moles/Vol] 24.4 mmol/L Normal 21.0-32.0 [facility] Comment on above: Performed By: #### C MVM #### [facility] [address] [place] [address] Dr. Niurka Blount Creatinine [Mass/Vol] 0.67 mg/dL Normal 0.55-1.02 [facility] Comment on above: Performed By: #### C MVM #### [facility] [address] [place] [address] Dr. Niurka Blount EGFR-AF SERBIAN >60 Normal >=60 [facility] Comment on above: Performed By: #### C MVM #### [facility] [address] [place] [address] Dr. Niurka Blount EGFR-NON AF SERBIAN >60 Normal >=60 [facility] Comment on above: Performed By: #### C MVM #### [facility] [address] [place] [address] Dr. Niurka Blount Globulin (S) [Mass/Vol] 3.1 g/dL Normal [facility] Comment on above: Performed By: #### C MVM #### [facility] [address] [place] [address] Dr. Niurka Blount Glucose [Mass/Vol] 109 mg/dL Critically high 74-106 [facility] Comment on above: Performed By: #### C MVM #### [facility] [address] [place] [address] Dr. Niurka Blount Potassium [Moles/Vol] 4.0 mmol/L Normal 3.5-5.1 [facility] Comment on above: Performed By: #### C MVM #### [facility] [address] [place] [address] Dr. Niurka Blount Protein [Mass/Vol] 7.5 g/dL Normal 6.4-8.2 [facility] Comment on above: Performed By: #### C MVM #### [facility] [address] [place] [address] Dr. Niurka Blount Sodium [Moles/Vol] 135 mmol/L Critically low 136-145 [facility] Comment on above: Performed By: #### C MVM #### [facility] [address] [place] [address] Dr. Niurka Blount Urea nitrogen [Mass/Vol] 8.0 mg/dL Normal 7.0-18.0 [facility] Comment on above: Performed By: #### C MVM #### [facility] [address] [place] [address] Dr. Niurka Blount Urea nitrogen/Creatinine [Mass ratio] 11.9 mg/mg Normal [facility] Comment on above: Performed By: #### C MVM #### [facility] [address] [place] [address] Dr. Niurka Blount [facility] SED RATE 3 mm/hr Normal <=20 [facility] Comment on above: Performed By: #### S EDR #### [facility] [address] [place] [address] Dr. Niurka Blount CBC AUTO DIFFon 07-13-2022 BASO # 0.1 103/ul Normal 0.0-0.1 [facility] Comment on above: Performed By: #### S EDR #### [facility] [address] [place] [address] Dr. Niurka Blount Basophils/100 WBC (Bld) 0.7 % Normal 0.2-2.0 [facility] Comment on above: Performed By: #### S EDR #### [facility] [address] [place] [address] Dr. Niurka Blount EO # 0.1 103/ul Normal 0.0-0.7 [facility] Comment on above: Performed By: #### S EDR #### [facility] [address] [place] [address] Dr. Niurka Blount Eosinophils/100 WBC (Bld) 1.3 % Normal 0.9-7.0 [facility] Comment on above: Performed By: #### S EDR #### [facility] [address] [place] [address] Dr. Niurka Blount Erythrocyte distribution width (RBC) [Ratio] 11.3 % Normal 11.0-15.0 [facility] Comment on above: Performed By: #### S EDR #### [facility] [address] [place] [address] Dr. Niurka Blount Hematocrit (Bld) [Volume fraction] 40.4 % Normal 36.0-48.0 [facility] Comment on above: Performed By: #### S EDR #### [facility] [address] [place] [address] Dr. Niurka Blount Hemoglobin (Bld) [Mass/Vol] 14.2 g/dL Normal 12.0-16.0 [facility] Comment on above: Performed By: #### S EDR #### [facility] [address] [place] [address] Dr. Niurka Blount IG # 0.02 10e3/ul Normal 0.00-0.03 [facility] Comment on above: Performed By: #### S EDR #### [facility] [address] [place] [address] Dr. Niurka Blount IG % 0.2 % Normal 0.0-0.5 [facility] Comment on above: Performed By: #### S EDR #### [facility] [address] [address] [address] Niurka Blount LYMPH # 1.9 103/ul Normal 1.2-3.8 [facility] Comment on above: Performed By: #### S EDR #### [facility] [address] [place] [address] Dr. Niurka Blount Lymphocytes/100 WBC (Bld) 22.1 % Normal 20.5-60.0 [facility] Comment on above: Performed By: #### S EDR #### [facility] [address] [place] [address] Dr. Niurka Blount MANUAL DIFF REQ NO Normal [facility] Comment on above: Performed By: #### S EDR #### [facility] [address] [place] [address] Dr. Niurka Blount MCH (RBC) [Entitic mass] 30.0 pg Normal 26.7-34.0 [facility] Comment on above: Performed By: #### S EDR #### [facility] [address] [place] [address] Dr. Niurka Blount MCHC (RBC) [Mass/Vol] 35.1 g/dL Normal 29.9-35.2 [facility] Comment on above: Performed By: #### S EDR #### [facility] [address] [place] [address] Dr. Niurka Blount MCV (RBC) [Entitic vol] 85.4 fL Normal 81.0-99.0 [facility] Comment on above: Performed By: #### S EDR #### [facility] [address] [place] [address] Dr. Niurka Blount MONO # 0.6 103/ul Normal 0.3-0.8 [facility] Comment on above: Performed By: #### S EDR #### [facility] [address] [place] [address] Dr. Niurka Blount Monocytes/100 WBC (Bld) 6.8 % Normal 1.7-12.0 [facility] Comment on above: Performed By: #### S EDR #### [facility] [address] [address] [address] Niurka Blount NEUT # 6.0 103/ul Normal 1.4-6.5 [facility] Comment on above: Performed By: #### S EDR #### [facility] [address] [place] [address] Dr. Niurka Blount Neutrophils/100 WBC (Bld) 68.9 % Normal 43.0-75.0 [facility] Comment on above: Performed By: #### S EDR #### [facility] [address] [place] [address] Dr. Niurka Blount Platelet mean volume (Bld) [Entitic vol] 10.7 fL Normal 9.5-13.5 [facility] Comment on above: Performed By: #### S EDR #### [facility] [address] [place] [address] Dr. Niurka Blount PLT 247 103/ul Normal 150-450 [facility] Comment on above: Performed By: #### S EDR #### [facility] [address] [place] [address] Dr. Niurka Blount RBC 4.73 106/ul Normal 4.20-5.40 [facility] Comment on above: Performed By: #### S EDR #### [facility] [address] [place] [address] Dr. Niurka Blount WBC 8.7 103/ul Normal 4.0-11.0 [facility] Comment on above: Performed By: #### S EDR #### [facility] [address] [place] [address] Dr. Niurka Blount FREE T3on 07-13-2022 FREE T3 2.53 pg/mlL Normal 2.18-3.98 [facility] Comment on above: Performed By: #### E RUR #### [facility] [address] [place] [address] Dr. Niurka lBount PROF 14(COMP METB)on 022 Albumin [Mass/Vol] 4.3 g/dL Normal 3.4-5.0 [facility] Comment on above: Performed By: #### E RUR #### [facility] [address] [place] [address] Dr. Niurka Blount Albumin/Globulin [Mass ratio] 1.5 {ratio} Normal [facility] Comment on above: Performed By: #### E RUR #### [facility] [address] [place] [address] Dr. Niurka Blount ALP [Catalytic activity/Vol] 79 U/L Normal 46-116 [facility] Comment on above: Performed By: #### E RUR #### [facility] [address] [place] [address] Dr. Niurka Blount ALT [Catalytic activity/Vol] 14 U/L Normal 14-59 [facility] Comment on above: Performed By: #### E RUR #### [facility] [address] [place] [address] Dr. Niurka Blount Anion gap [Moles/Vol] 11.5 mmol/L Normal [facility] Comment on above: Performed By: #### E RUR #### [facility] [address] [place] [address] Dr. Niurka Blount AST [Catalytic activity/Vol] 10 U/L Critically low 15-37 [facility] Comment on above: Performed By: #### E RUR #### [facility] [address] [place] [address] Dr. Niurka Blount Bilirubin [Mass/Vol] 0.4 mg/dL Normal 0.2-1.0 [facility] Comment on above: Performed By: #### E RUR #### [facility] [address] [place] [address] Dr. Niurka Blount Calcium [Mass/Vol] 8.8 mg/dL Normal 8.5-10.1 [facility] Comment on above: Performed By: #### E RUR #### [facility] [address] [place] [address] Dr. Niurka Blount Chloride [Moles/Vol] 103 mmol/L Normal 98-107 [facility] Comment on above: Performed By: #### E RUR #### [facility] [address] [place] [address] Dr. Niurka Blount CO2 [Moles/Vol] 26.2 mmol/L Normal 21.0-32.0 [facility] Comment on above: Performed By: #### E RUR #### [facility] [address] [place] [address] Dr. Niurka Blount Creatinine [Mass/Vol] 0.71 mg/dL Normal 0.55-1.02 [facility] Comment on above: Performed By: #### E RUR #### [facility] [address] [place] [address] Dr. Niurka Blount EGFR-AF SERBIAN >60 Normal >=60 [facility] Comment on above: Performed By: #### E RUR #### [facility] [address] [place] [address] Dr. Niurka Blount EGFR-NON AF SERBIAN >60 Normal >=60 [facility] Comment on above: Performed By: #### E RUR #### [facility] [address] [place] [address] Dr. Niurka Blount Globulin (S) [Mass/Vol] 2.9 g/dL Normal [facility] Comment on above: Performed By: #### E RUR #### [facility] [address] [place] [address] Dr. Niurka Blount Glucose [Mass/Vol] 119 mg/dL Critically high 74-106 [facility] Comment on above: Performed By: #### E RUR #### [facility] [address] [place] [address] Dr. Niurka Blount Potassium [Moles/Vol] 3.7 mmol/L Normal 3.5-5.1 [facility] Comment on above: Performed By: #### E RUR #### [facility] [address] [place] [address] Dr. Niurka Blount Protein [Mass/Vol] 7.2 g/dL Normal 6.4-8.2 [facility] Comment on above: Performed By: #### E RUR #### [facility] [address] [place] [address] Dr. Niurka Blount Sodium [Moles/Vol] 137 mmol/L Normal 136-145 [facility] Comment on above: Performed By: #### E RUR #### [facility] [address] [place] [address] Dr. Niurka Blount Urea nitrogen [Mass/Vol] 11.0 mg/dL Normal 7.0-18.0 [facility] Comment on above: Performed By: #### E RUR #### [facility] [address] [place] [address] Dr. Niurka Blount Urea nitrogen/Creatinine [Mass ratio] 15.5 mg/mg Normal [facility] Comment on above: Performed By: #### E RUR #### [facility] [address] [place] [address] Dr. Niurka Blount TSHon 07-13-2022 TSH 0.543 uIU/mL Normal 0.358-3.740 [facility] Comment on above: Performed By: #### E RUR #### [facility] [address] [place] [address] Dr. Niurka Blount QUANTIFERON TB GOLD PLUSon 0 05-01-2022 QuantiFERON Criteria Comment [facility] Comment on above: Result Comment: Morris [...] By: #### Q NTTB #### [facility] [address] [place] [address] Dr. Niurka Blount QuantiFERON Incubation Incubation performed. Normal [facility] Comment on above: Performed By: #### Q NTTB #### [facility] [address] [place] [address] Dr. Niurka Blount QuantiFERON Mitogen Value >10.00 Normal [facility] Comment on above: Performed By: #### Q NTTB #### [facility] [address] [place] [address] Dr. Niurka Blount QuantiFERON Nil Value 0.02 IU/mL Normal [facility] Comment on above: Performed By: #### Q NTTB #### [facility] [address] [place] [address] Dr. Niurka Blount QuantiFERON TB1 Ag Value 0.02 IU/mL Normal [facility] Comment on above: Performed By: #### Q NTTB #### [facility] [address] [place] [address] Dr. Niurka Blount QuantiFERON TB2 Ag Value 0.02 IU/mL Normal [facility] Comment on above: Performed By: #### Q NTTB #### [facility] [address] [place] [address] Dr. Niurka Blount QuantiFERON-TB Gold Plus Negative Normal Negative [facility] Comment on above: Result Comment: No r esponse to M tuberculosis antigens detected. Infection with M tuberculosis is unlikely, but high risk individuals should be considered for additional testing (ATS/IDSA/CDC Clinical Practice Guidelines, 2017). The reference range is an Antigen minus Nil result of <0.35 IU/mL. Chemiluminescence immunoassay methodology Performed By: #### Q NTTB #### [facility] [address] [place] [address] Dr. Niurka Blount HEP B COREon 04-29-2022 Hep B Core Ab, Tot Negative Normal Negative [facility] Comment on above: Performed By: #### E RUR #### [facility] [address] [place] [address] Dr. Niurka Blount HEP B SURFACE ANTIGEN SCREEN on 04-29-2022 HBsAg Screen Negative Normal Negative [facility] Comment on above: Performed By: #### E RUR #### [facility] [address] [place] [address] Dr. Niurka Blount CBC AUTO DIFFon 04-27-2022 BASO # 0.0 103/ul Normal 0.0-0.1 [facility] Comment on above: Performed By: #### E RUR #### [facility] [address] [place] [address] Dr. Niurka Blount Basophils/100 WBC (Bld) 0.5 % Normal 0.2-2.0 [facility] Comment on above: Performed By: #### E RUR #### [facility] [address] [place] [address] Dr. Niurka Blount EO # 0.1 103/ul Normal 0.0-0.7 [facility] Comment on above: Performed By: #### E RUR #### [facility] [address] [place] [address] Dr. Niurka Blount Eosinophils/100 WBC (Bld) 1.5 % Normal 0.9-7.0 [facility] Comment on above: Performed By: #### E RUR #### [facility] [address] [place] [address] Dr. Niurka Blount Erythrocyte distribution width (RBC) [Ratio] 11.9 % Normal 11.0-15.0 [facility] Comment on above: Performed By: #### E RUR #### [facility] [address] [place] [address] Dr. Niurka Blount Hematocrit (Bld) [Volume fraction] 39.2 % Normal 36.0-48.0 [facility] Comment on above: Performed By: #### E RUR #### [facility] [address] [place] [address] Dr. Niurka Blount Hemoglobin (Bld) [Mass/Vol] 13.9 g/dL Normal 12.0-16.0 [facility] Comment on above: Performed By: #### E RUR #### [facility] [address] [place] [address] Dr. Niurka Blount IG # 0.03 10e3/ul Normal 0.00-0.03 [facility] Comment on above: Performed By: #### E RUR #### [facility] [address] [place] [address] Dr. Niurka Blount IG % 0.4 % Normal 0.0-0.5 [facility] Comment on above: Performed By: #### E RUR #### [facility] [address] [place] [address] Dr. Niurka Blount LYMPH # 2.2 103/ul Normal 1.2-3.8 [facility] Comment on above: Performed By: #### E RUR #### [facility] [address] [place] [address] Dr. Niurka Blount Lymphocytes/100 WBC (Bld) 26.3 % Normal 20.5-60.0 [facility] Comment on above: Performed By: #### E RUR #### [facility] [address] [place] [address] Dr. Niurka Blount MANUAL DIFF REQ NO Normal [facility] Comment on above: Performed By: #### E RUR #### [facility] [address] [place] [address] Dr. Niurka Blount MCH (RBC) [Entitic mass] 30.5 pg Normal 26.7-34.0 [facility] Comment on above: Performed By: #### E RUR #### [facility] [address] [place] [address] Dr. Niurka Blount MCHC (RBC) [Mass/Vol] 35.5 g/dL Critically high 29.9-35.2 [facility] Comment on above: Performed By: #### E RUR #### [facility] [address] [place] [address] Dr. Niurka Blount MCV (RBC) [Entitic vol] 86.2 fL Normal 81.0-99.0 [facility] Comment on above: Performed By: #### E RUR #### [facility] [address] [place] [address] Dr. Niurka Blount MONO # 0.6 103/ul Normal 0.3-0.8 [facility] Comment on above: Performed By: #### E RUR #### [facility] [address] [place] [address] Dr. Niurka Blount Monocytes/100 WBC (Bld) 7.2 % Normal 1.7-12.0 [facility] Comment on above: Performed By: #### E RUR #### [facility] [address] [place] [address] Dr. Niurka Blount NEUT # 5.4 103/ul Normal 1.4-6.5 [facility] Comment on above: Performed By: #### E RUR #### [facility] [address] [place] [address] Dr. Niurka Blount Neutrophils/100 WBC (Bld) 64.1 % Normal 43.0-75.0 [facility] Comment on above: Performed By: #### E RUR #### [facility] [address] [place] [address] Dr. Niurka Blount Platelet mean volume (Bld) [Entitic vol] 10.4 fL Normal 9.5-13.5 [facility] Comment on above: Performed By: #### E RUR #### [facility] [address] [place] [address] Dr. Niurka Blount PLT 235 103/ul Normal 150-450 [facility] Comment on above: Performed By: #### E RUR #### [facility] [address] [place] [address] Dr. Niurka Blount RBC 4.55 106/ul Normal 4.20-5.40 [facility] Comment on above: Performed By: #### E RUR #### [facility] [address] [place] [address] Dr. Niurka Blount WBC 8.5 103/ul Normal 4.0-11.0 [facility] Comment on above: Performed By: #### E RUR #### [facility] [address] [place] [address] Dr. Niurka Blount CRPon 04-27-2022 CRP [Mass/Vol] mg/L Normal <=1.0 [facility] Comment on above: Performed By: #### C MP, CRP #### [facility] [address] [place] [address] Dr. Niurka Blount PROF 14(COMP METB)on 022 Albumin [Mass/Vol] 4.2 g/dL Normal 3.4-5.0 [facility] Comment on above: Performed By: #### C MP, CRP #### [facility] [address] [place] [address] Dr. Niurka Blount Albumin/Globulin [Mass ratio] 1.4 {ratio} Normal [facility] Comment on above: Performed By: #### C MP, CRP #### [facility] [address] [address] [address] Niurka Blount ALP [Catalytic activity/Vol] 80 U/L Normal 46-116 [facility] Comment on above: Performed By: #### C MP, CRP #### [facility] [address] [address] [address] Niurka Blount ALT [Catalytic activity/Vol] 26 U/L Normal 14-59 [facility] Comment on above: Performed By: #### C MP, CRP #### [facility] [address] [place] [address] Dr. Niurka Blount Anion gap [Moles/Vol] 11.4 mmol/L Normal [facility] Comment on above: Performed By: #### C MP, CRP #### [facility] [address] [place] [address] Dr. Niurka Blount AST [Catalytic activity/Vol] 13 U/L Critically low 15-37 [facility] Comment on above: Performed By: #### C MP, CRP #### [facility] [address] [place] [address] Dr. Niurka Blount Bilirubin [Mass/Vol] 0.4 mg/dL Normal 0.2-1.0 [facility] Comment on above: Performed By: #### C MP, CRP #### [facility] [address] [place] [address] Dr. Niurka Blount Calcium [Mass/Vol] 8.8 mg/dL Normal 8.5-10.1 [facility] Comment on above: Performed By: #### C MP, CRP #### [facility] [address] [place] [address] Dr. Niurka Blount Chloride [Moles/Vol] 106 mmol/L Normal 98-107 [facility] Comment on above: Performed By: #### C MP, CRP #### [facility] [address] [place] [address] Dr. Niurka Blount CO2 [Moles/Vol] 26.5 mmol/L Normal 21.0-32.0 [facility] Comment on above: Performed By: #### C MP, CRP #### [facility] [address] [place] [address] Dr. Niurka Bluont Creatinine [Mass/Vol] 0.80 mg/dL Normal 0.55-1.02 [facility] Comment on above: Performed By: #### C MP, CRP #### [facility] [address] [address] [address] Niurka Blount EGFR-AF SERBIAN >60 Normal >=60 [facility] Comment on above: Performed By: #### C MP, CRP #### [facility] [address] [place] [address] Dr. Niurka Blount EGFR-NON AF SERBIAN >60 Normal >=60 [facility] Comment on above: Performed By: #### C MP, CRP #### [facility] [address] [place] [address] Dr. Niurka Blount Globulin (S) [Mass/Vol] 3.0 g/dL Normal [facility] Comment on above: Performed By: #### C MP, CRP #### [facility] [address] [place] [address] Dr. Niurka Blount Glucose [Mass/Vol] 113 mg/dL Critically high 74-106 [facility] Comment on above: Performed By: #### C MP, CRP #### [facility] [address] [place] [address] Dr. Niurka Blount Potassium [Moles/Vol] 3.9 mmol/L Normal 3.5-5.1 [facility] Comment on above: Performed By: #### C MP, CRP #### [facility] [address] [place] [address] Dr. Niurka Blount Protein [Mass/Vol] 7.2 g/dL Normal 6.4-8.2 [facility] Comment on above: Performed By: #### C MP, CRP #### [facility] [address] [place] [address] Dr. Niurka Blount Sodium [Moles/Vol] 140 mmol/L Normal 136-145 [facility] Comment on above: Performed By: #### C MP, CRP #### [facility] [address] [address] [address] Niurka Blount Urea nitrogen [Mass/Vol] 9.0 mg/dL Normal 7.0-18.0 [facility] Comment on above: Performed By: #### C MP, CRP #### [facility] [address] [address] [address] Niurka Blount Urea nitrogen/Creatinine [Mass ratio] 11.2 mg/mg Normal [facility] Comment on above: Performed By: #### C MP, CRP #### [facility] [address] [place] [address] Dr. Niurka Blount SED RATE [facility] 2021 SED RATE 2 mm/hr Normal <=20 [facility] Comment on above: Performed By: #### E RUR #### [facility] [address] [place] [address] Dr. Niurka Blount MRI CSPINE WO CONon [...] Date: 2022-04-06 11:21 Normal [facility] XR CSPINE MIN 4 VIEWSon 01-12 [...] Date: 2022-02-08 17:24 Normal [facility] Albumin [Mass/volume] in Ser um or PlasmaOrdered By: Piter Maharaj on 09-18-2021 Albumin [Mass/Vol] 4.3 g/dL 3.2-5.5 [facility] Basophils Auto (Bld) [#/Vol] Ordered By: Piter Maharaj on 09-18-2021 Basophils (Bld) [#/Vol] 0.0 10*3/uL 0.0-0.2 [facility] Basophils/100 WBC Auto (Bld) Ordered By: Piter Maharaj on 09-18-2021 Basophils/100 WBC (Bld) 0.7 % . [facility] C reactive protein [Mass/vol ume] in Serum or PlasmaOrdered By: Piter Maharaj on 09-18-2021 CRP [Mass/Vol] 1.1 mg/dL 0.0-1.0 [facility] Creatinine and Glomerular fi ltration rate.predicted panel (S/P/Bld)Ordered By: Piter Maharaj on 09-18-2021 Creatinine [Mass/Vol] 0.73 mg/dL 0.44-1.03 [facility] Eosinophils Auto (Bld) [#/Vo l]Ordered By: Piter Maharaj on 09-18-2021 Eosinophils (Bld) [#/Vol] 0.1 10*3/uL 0.0-0.45 [facility] Eosinophils/100 WBC Auto (Bl d)Ordered By: Piter Maharaj on 09-18-2021 Eosinophils/100 WBC (Bld) 1.9 % . [facility] Erythrocyte distribution wid th Auto (RBC) [Ratio]Ordered By: Piter Maharaj on 09-18-2021 Erythrocyte distribution width (RBC) [Ratio] 12.0 % 11.9-15.3 [facility] Erythrocyte sedimentation ra te by Photometric methodOrdered By: Piter Maharaj on 09-18-2021 ESR Photometric method (Bld) [Velocity] 3 mm/hr 0-19 [facility] Estimated glomerular filtrat ion rate (GFR) non- AmericanOrdered By: Piter Maharaj on 09-18-2021 GFR/1.73 sq M.predicted among non-blacks MDRD (S/P/Bld) [Vol rate/Area] > 60 mL/Min [facility] Globulin Calc (S) [Mass/Vol] Ordered By: Piter Maharaj on 09-18-2021 Globulin (S) [Mass/Vol] 2.2 g/dL [facility] Hematocrit Auto (Bld) [Volum e fraction]Ordered By: Piter Maharaj on 09-18-2021 Hematocrit (Bld) [Volume fraction] 42.2 % 34.0-46.4 [facility] Hemoglobin [Mass/volume] in BloodOrdered By: Piter Maharaj on 09-18-2021 Hemoglobin (Bld) [Mass/Vol] 14.6 g/dL 11.8-15.4 [facility] - Hematology and Cell countsOrdered By: Piter Maharaj on 09-18-2021 Nucleated RBC/100 WBC (Bld) [Ratio] 0.1 % 0-0.5 [facility] Leukocytes [#/volume] in Blo od by Automated countOrdered By: Piter Maharaj on 09-18-2021 WBC (Bld) [#/Vol] 6.6 10*3/uL 4.5-11.0 [facility] Lymphocytes Auto (Bld) [#/Vo l]Ordered By: Piter Maharaj on 09-18-2021 Lymphocytes (Bld) [#/Vol] 2.3 10*3/uL 1.00-4.8 [facility] Lymphocytes/100 WBC Auto (Bl d)Ordered By: Piter Maharaj on 09-18-2021 Lymphocytes/100 WBC (Bld) 34.0 % . [facility] MCH Auto (RBC) [Entitic mass ]Ordered By: Piter Maharaj on 09-18-2021 MCH (RBC) [Entitic mass] 30.0 pg 24.7-34.3 [facility] MCHC Auto (RBC) [Mass/Vol]Or dered By: Piter Maharaj on 09-18-2021 MCHC (RBC) [Mass/Vol] 34.6 g/dL 32.0-35.0 [facility] MCV Auto (RBC) [Entitic vol] Ordered By: Piter Maharaj on 09-18-2021 MCV (RBC) [Entitic vol] 86.6 fL 80-100 [facility] Monocytes Auto (Bld) [#/Vol] Ordered By: Piter Maharaj on 09-18-2021 Monocytes (Bld) [#/Vol] 0.5 10*3/uL 0.0-0.8 [facility] Monocytes/100 WBC Auto (Bld) Ordered By: Piter Maharaj on 09-18-2021 Monocytes/100 WBC (Bld) 8.2 % . [facility] Neutrophils Auto (Bld) [#/Vo l]Ordered By: Piter Maharaj on 09-18-2021 Neutrophils (Bld) [#/Vol] 3.7 10*3/uL 1.8-7.7 [facility] Neutrophils/100 WBC Auto (Bl d)Ordered By: Piter Maharaj on 09-18-2021 Neutrophils/100 WBC (Bld) 55.2 % . [facility] No Panel InformationOrdered By: Piter Maharaj on 09-18-2021 Estimated GFR () > 60 mL/Min [facility] Comment on above: GFR estimated refere nce range: According to KDOQI guidelines, <60 ml/min/1.73m2 is sufficient to diagnose a patient with chronic kidney disease. Pharmacy Creatinine Clearance (Chem 102.56 [facility] Platelet mean volume Auto (B ld) [Entitic vol]Ordered By: Piter Maharaj on 09-18-2021 Platelet mean volume (Bld) [Entitic vol] 8.8 fL 6.3-10.7 [facility] Platelets Auto (Bld) [#/Vol] Ordered By: Piter Maharaj on 09-18-2021 Platelets (Bld) [#/Vol] 222 10*3/uL 150-450 [facility] Protein [Mass/volume] in Ser um or PlasmaOrdered By: Piter Maharaj on 09-18-2021 Protein [Mass/Vol] 6.5 g/dL 6.1-7.9 [facility] RBC Auto (Bld) [#/Vol]Ordere d By: Piter Maharaj on 09-18-2021 RBC (Bld) [#/Vol] 4.87 10*6/uL 3.60-5.00 [facility] Serum or plasma alanine rodriguez otransferase measurement without P-5'-P (enzymatic activiOrdered By: Piter Maharaj on 09-18-2021 ALT No additional P-5'-P [Catalytic activity/Vol] 23 U/L 10-60 [facility] Serum or plasma albumin/glob ulin mass ratioOrdered By: Piter Maharaj on 09-18-2021 Albumin/Globulin [Mass ratio] 2.0 {ratio} [facility] Serum or plasma alkaline susan sphatase measurement (enzymatic activity/volume)Ordered By: Piter Maharaj on 09-18-2021 ALP [Catalytic activity/Vol] 84 U/L 32-92 [facility] Serum or plasma aspartate am inotransferase measurement (enzymatic activity/volume)Ordered By: Piter Maharaj on 09-18-2021 AST [Catalytic activity/Vol] 20 U/L 10-42 [facility] Serum or plasma calcium toni urement (mass/volume)Ordered By: Piter Maharaj on 09-18-2021 Calcium [Mass/Vol] 9.3 mg/dL 8.2-10.2 [facility] Serum or plasma chloride carina surement (moles/volume)Ordered By: Piter Maharaj on 09-18-2021 Chloride [Moles/Vol] 103 mmol/L 95-114 [facility] Serum or plasma glucose toni urement (mass/volume)Ordered By: Piter Maharaj on 09-18-2021 Glucose [Mass/Vol] 80 mg/dL 70-100 [facility] Comment on above: ADA recommended refe rence rangeRandom Glucose Reference Range is dependent on time and content of last meal. Glucose of more than 200 mg/dL in a nonstressed, ambulatory subject supports the diagnosis of Diabetes Mellitus. Serum or plasma potassium me asurement (moles/volume)Ordered By: Piter Maharaj on 09-18-2021 Potassium [Moles/Vol] 4.0 mmol/L 3.5-5.1 [facility] Serum or plasma sodium measu rement (moles/volume)Ordered By: Piter Maharaj on 09-18-2021 Sodium [Moles/Vol] 139 mmol/L 136-146 [facility] Serum or plasma total biliru bin measurement (mass/volume)Ordered By: Piter Maharaj on 09-18-2021 Bilirubin [Mass/Vol] 0.8 mg/dL 0.3-1.2 [facility] Serum or plasma total carbon dioxide measurement (moles/volume)Ordered By: Piter Maharaj on 09-18-2021 CO2 [Moles/Vol] 27.0 mmol/L 22.0-30.0 [facility] Serum or plasma urea nitroge n measurement (mass/volume)Ordered By: Piter Maharaj on 09-18-2021 Urea nitrogen [Mass/Vol] 14 mg/dL 05-04 [facility] ESR Westergren method (Bld) [Velocity]on 04-11-2020 ESR (Bld) [Velocity] 2 mm/h 032 [facility] Comment on above: Performed at: [address], [place] [id number] Director: Gerry Martinez PhD, Phone: [phone] Laboratory - Hematology and Cell countson 04-11-2020 WBC (Bld) [#/Vol] 5.0 10*3/uL 4.5-11.0 [facility] Vital Signs Date Time Vital Sign Value Performing Clinician Facility 04-04-2023 10:40-0400 Body height 157.48 cm Dutch Pereyra Other [email or web address] Other 04-04-2023 10:40-0400 Body mass index (BMI) [Ratio] 23.41 kg/m2 Dutch Pereyra Other [email or web address] Other 04-04-2023 10:40-0400 Body weight 58.06 kg Dutch Pereyra Other [email or web address] Other 04-04-2023 10:40-0400 Diastolic blood pressure 66 mm[Hg] Dutch Pereyra Other [email or web address] Other 04-04-2023 10:40-0400 Systolic blood pressure 104 mm[Hg] Dutch Pereyra Other [email or web address] Other 03-12-2023 13:15-0400 Body height 157.48 cm Piter Maharaj Other [email or web address] Other 03-12-2023 13:15-0400 Body mass index (BMI) [Ratio] 24.32 kg/m2 Piter Maharaj Other [email or web address] Other 03-12-2023 13:15-0400 Body weight 60.33 kg Piter Maharaj Other [email or web address] Other 03-12-2023 13:15-0400 Diastolic blood pressure 80 mm[Hg] Piter Maharaj Other [email or web address] Other 03-12-2023 13:15-0400 Systolic blood pressure 119 mm[Hg] Piter Maharaj Other [email or web address] Other 09-11-2022 14:15-0500 Body height 157.48 cm Piter Maharaj Other [email or web address] Other 09-11-2022 14:15-0500 Body mass index (BMI) [Ratio] 28.16 kg/m2 Piter Maharaj Other [email or web address] Other 09-11-2022 14:15-0500 Body weight 69.85 kg Piter Maharaj Other [email or web address] Other 09-11-2022 14:15-0500 Diastolic blood pressure 71 mm[Hg] Piter Maharaj Other [email or web address] Other 09-11-2022 14:15-0500 Systolic blood pressure 100 mm[Hg] Piter Maharaj Other [email or web address] Other 07-25-2022 11:45-0500 Body height 157.48 cm Piter Maharaj Other [email or web address] Other 07-25-2022 11:45-0500 Body mass index (BMI) [Ratio] 27.43 kg/m2 Piter Maharaj Other [email or web address] Other 07-25-2022 11:45-0500 Body weight 68.04 kg Piter Maharaj Other [email or web address] Other 07-25-2022 11:45-0500 Diastolic blood pressure 94 mm[Hg] Piter Maharaj Other [email or web address] Other 07-25-2022 11:45-0500 Systolic blood pressure 132 mm[Hg] Piter Altamiranoack Other [email or web address] Other 06-25-2022 15:25-0500 Diastolic blood pressure 83 mm[Hg] II Stoney Giles Work Phone: [facility] 06-25-2022 15:25-0500 Heart rate 60 /min II Stoney Giles Work Phone: [facility] 06-25-2022 15:25-0500 Systolic blood pressure 137 mm[Hg] II Stoney Giles Work Phone: [facility] 05-29-2022 14:06-0400 Body temperature 97.7 [degF] II Stoney Giles Work Phone: [facility] 05-29-2022 14:06-0400 Respiratory rate 18 /min II Stoney Giles Work Phone: [facility] 05-29-2022 14:06-0400 SaO2% (BldA) [Mass fraction] 95 % II Stoney Giles Work Phone: [facility] 05-23-2022 11:45-0400 Body height 157.48 cm Piter Maharaj Other [email or web address] Other 05-23-2022 11:45-0400 Body mass index (BMI) [Ratio] 28.35 kg/m2 Piter Nicko Other [email or web address] Other 05-23-2022 11:45-0400 Body weight 70.31 kg Piter Nicko Other [email or web address] Other 04-25-2022 12:00-0400 Body height 157.48 cm Piter Maharja Other [email or web address] Other 04-25-2022 12:00-0400 Body mass index (BMI) [Ratio] 28.16 kg/m2 Piter Maharaj Other [email or web address] Other 04-25-2022 12:00-0400 Body weight 69.85 kg Piter Maharaj Other [email or web address] Other 10-30-2021 14:48-0400 Body height 157.48 cm II Stoney Giles Work Phone: [facility] 10-30-2021 14:48-0400 Body mass index (BMI) [Ratio] 29.8 kg/m2 II Stoney Giles Work Phone: [facility] 10-30-2021 14:48-0400 Body weight 73.93 kg II Stoney Giles Work Phone: [facility] 07-24-2021 11:45-0500 Body height 157.48 cm Piter Maharaj Other [email or web address] Other 07-24-2021 11:45-0500 Body mass index (BMI) [Ratio] 29.26 kg/m2 Piter Maharaj Other [email or web address] Other 07-24-2021 11:45-0500 Body weight 72.58 kg Piter Maharaj Other [email or web address] Other Encounters Encounter Date Encounter Type Care Provider Facility Start: 08-16-2023 End: 08-16-2023 ambulatory JOHN SHUKLA Not Available Start: 07-18-2023 End: 07-18-2023 ambulatory JAVED LEVIN Not Available Start: 04-04-2023 End: 04-04-2023 ambulatory Dutch Pereyra Other [email or web address] Other Start: 04-04-2023 Office outpatient new 30 minutes Dutch Pereyra [facility] Start: 04-03-2023 End: 04-03-2023 ambulatory Dutch Pereyra Facility:[facility] Start: 04-03-2023 End: 04-03-2023 Patient encounter procedure II Stoney Giles Work Phone: [facility] [place] Work Phone: Start: 03-12-2023 End: 03-12-2023 ambulatory Piter Maharaj Other [facility] [employer] Other Start: 03-12-2023 Office outpatient visit 15 minutes Piter Maharaj [facility] Start: 01-01-[address] STONEY GILES Facilit y:[facility] Start: 12-18-2022 End: 12-19-2022 ambulatory NARENDRANATH LAKSHMIPATHY . Facility: Start: 12-11-2022 End: 12-11-2022 ambulatory ISABELLA VAUGHN Facility: Start: 12-04-2022 End: 12-04-2022 ambulatory STONEY ASKEW Facility:[facility] Start: 11-07-2022 End: 11-08-2022 ambulatory Gilbert Chauhan Facility:[facility] Start: 10-26-2022 End: 10-26-2022 ambulatory Gilbert Chauhan Facility:[facility] Start: 10-26-2022 End: 10-26-2022 ambulatory II Stoney Giles Work Phone: [facility] Work Phone: Start: 10-26-2022 End: 10-26-2022 Patient encounter procedure II Stoney Giles Work Phone: [facility] [place] Work Phone: Start: 10-23-2022 End: 10-24-2022 ambulatory NARENDRANATH LAKSHMIPATHY . Facility:[facility] Start: 10-09-2022 End: 10-09-[address] ALEENA ANAND . Facility:[facility] Start: 09-21-2022 End: 09-21-[address] DEANN THOMASON Facility:[facility] Start: 2022 End: 09-14-2022 ambulatory YESSI ARBOLEDA . Facility:[facility] Start: 09-11-2022 End: 09-11-2022 ambulatory Piter Maharaj Other [email or web address] Other Start: 09-11-2022 Office outpatient visit 15 minutes Piter Maharaj [facility] Start: 08-23-2022 End: 08-23-2022 ambulatory Marla Winslow Facility:[facility] Start: 08-23-2022 End: 08-23-2022 ambulatory II Stoney Giles Work Phone: [facility] Work Phone: Start: 08-23-2022 End: 08-23-2022 Patient encounter procedure II Stoney Giles Work Phone: [facility] Work Phone: Start: 08-21-2022 End: 08-21-[address] ALEENA ANAND . Facility:[facility] Start: 08-20-2022 End: 08-20-2022 ambulatory Piter Maharaj Other [email or web address] Other Start: 08-20-2022 Telephone encounter Piter moctezuma [facility] Start: 08-08-2022 End: 08-08-2022 ambulatory Piter Maharaj Other [email or web address] Other Start: 08-08-2022 Telephone encounter Piter moctezuma [facility] Start: 07-31-2022 End: 08-01-[address] ALEENA ANAND . Facility:[facility] Start: 07-30-2022 End: 07-30-2022 ambulatory Piter Maharaj Other [email or web address] Other Start: 07-30-2022 Telephone encounter Piter moctezuma [facility] Start: 07-25-2022 End: 07-25-2022 ambulatory Piter Maharaj Other [email or web address] Other Start: 07-25-2022 Patient encounter procedure Piter Maharaj [facility] Start: 07-20-2022 End: 07-21-[address] Jamel MAHARAJ Facility:[facility] Start: 07-18-2022 End: 07-18-2022 ambulatory Piter Maharaj Other [email or web address] Other Start: 07-18-2022 Telephone encounter Piter Sen ck [facility] Start: 07-17-2022 End: 07-17-2022 ambulatory RAE HIRSCH . [facility] [employer] Other Start: 07-17-2022 Telephone encounter Piter Sen ck [facility] Start: 07-13-2022 End: 07-14-[address] STONEY GILES [facility] [employer] Other Start: 07-13-2022 Telephone encounter Piter moctezuma [facility] Start: 07-03-2022 End: 07-03-2022 ambulatory Piter Maharaj Other [email or web address] Other Start: 07-03-2022 Telephone encounter Piter moctezuma [facility] Start: 06-25-2022 End: 06-25-2022 ambulatory Stoney Giles Facility:[facility] Start: 06-25-2022 Registered Recurring II Stoney Giles Work Phone: [facility] Work Phone: Start: 05-23-2022 End: 05-23-2022 ambulatory Piter Maharaj Other [employer] Other Start: 05-23-2022 Office outpatient visit 15 minutes Piter Maharaj [facility] Start: 04-27-2022 End: 04-28-[address] Jamel MAHARAJ Facility:[facility] Start: 04-25-2022 End: 04-25-2022 ambulatory Piter Maharaj Other [email or web address] Other Start: 04-25-2022 Office outpatient visit 25 minutes Piter Maharaj [facility] Start: 04-25-2022 Telephone encounter Piter moctezuma [facility] Start: 04-05-2022 End: 04-06-[address] STONEY GILES Facility:[facility] Start: 02-08-2022 End: 02-09-[address] STONEY GILES Facility:[facility] Start: 01-15-2022 End: 01-15-2022 ambulatory Piter Maharaj Other [email or web address] Other Start: 01-15-2022 Telephone encounter Piter moctezuma [facility] Start: 07-24-2021 End: 07-24-2021 ambulatory Piter Maharaj Other [email or web address] Other Start: 07-24-2021 Office outpatient visit 15 minutes Piter Maharaj [facility] Start: 06-29-2021 End: 06-29-2021 ambulatory Piter Maharaj Other [email or web address] Other Start: 06-29-2021 Telephone encounter Piter moctezuma [facility] Procedures Date Procedure Procedure Detail Performing Clinician Start: 04-03-2023 X-ray of cervical spine II Stoney Giles Work Phone: Start: 10-26-2022 Plain chest X-ray II Da kattshayy Giles Work Phone: Start: 08-23-2022 X-ray of left ankle II Stoney Giles Work Phone: Immunizations Immunization Date Immunization Notes Care Provider Ruma martinez 12-21-2014 tetanus toxoid, reduced diphtheria toxoid, and acellular pertussis vaccine, adsorbed Piter Maharaj Other [email or web address] Other Payers Date Payer Category Payer Medicaid [id number] 2019 Self-pay [id number] 2019 Unknown [id number] 1990 Unknown [id number] [id number]7 1990 Unknown [id number] 2.16.840.1.401872.3.579.2.593 1990 Unknown [id number] 2.16.840.1.207648.3.579.2.593 1990 Unknown [id number] 2.16.840.1.185073.3.579.2.593 1990 Unknown [id number] 2.16.840.1.160571.3.579.2.593 1990 Unknown [id number] 2.16.840.1.190853.3.579.2.593 1990 Unknown [id number] 2.16.840.1.890900.3.579.2.593 1990 Unknown [id number] 2.16.840.1.601843.3.579.2.593 1990 Unknown [id number] 2.16.840.1.003537.3.579.2.593 1990 Unknown [id number] 2.16.840.1.216607.3.579.2.593 1990 Unknown [id number] 2.16.840.1.298290.3.579.2.593 1990 Unknown [id number] 2.16.840.1.521494.3.579.2.593 1990 Unknown [id number] 2.16.840.1.050718.3.579.2.593 1990 Unknown [id number] 2.16.840.1.529230.3.579.2.593 1990 Unknown [id number] 2.16.840.1.712465.3.579.2.593 1990 Unknown [id number] 2.16.840.1.929270.3.579.2.593 1990 Unknown [id number] 2.16.840.1.550555.3.579.2.593 1990 Unknown [id number] 2.16.840.1.781970.3.579.2.1259 1990 Unknown [id number] 2.16.840.1.566459.3.579.2.1259 1959 Unknown [id number] 2.16.840.1.529578.19 Private Health Insurance [facility] [id number] Unknown [id number] 2.16.840.1.385009.3.579.2.531 Social History Date Type Detail Facility Sex Assigned At [email or web address] Other Start: 12-23-2018 End: 12-23-2018 Tobacco smoking status [facility] Smoker (finding) [facility] Start: 1990 Sex Assigned At Female [facility] Clinical Notes 07-24-2021 to 04-04-2023 Note Date [...] it is significant enough at this time 24 Aug, 2023 Cervical spondylosis (ICD-10 - M47.812) Mar, Carpal tunnel syndrome of right wrist (ICD-10 - G56.01) [email or web address] Other 08-01-2023 Evaluation note* Encounter Date Diagnosis Assessment Notes Treatment Notes Treatment Clinical Notes Mar, Crohns disease (ICD-10 - K50.90) Patient still having some small flares [email or web address] Other 05-09-2023 NoteCONSULTATION PROCEDURE DATE: 12/18/2022 PROCEDURE: [...] the site of the injection.[id number] NoteCONSULTATION CONSULTATION DATE: 10/23/2022 FOLLOW UP NOTE [...] outlined plan. Also, of note, she uses [place] infrequently. She takes half a pill at a time, when she does use it, and she uses less than 14 pills in a month. Her OARRS report was reconciled. She does report the medicine does improve her quality of life, level of functioning and sleep pattern.[id number] Note CONSULTATION CONSULTATION DATE: 2022 This is [...] self-massage which she finds beneficial. Medications include Rutland 5/325, half pill p.r.n. as needed because [...] in the office there after.[facility] [id number] Evaluation note* Encounter Date Diagnosis Assessment Notes Treatment Notes Treatment Clinical Notes Aug, Crohns disease (ICD-10 - K50.90) Continue Stelara without change Labs and follow up in 6 months [email or web address] Other 12-20-2022 NoteCONSULTATION CONSULTATION DATE: 07/31/2022 CHIEF [...] currently takes Aleve two tablets a day, Rutland 5/325 on a p.r.n. basis. She tries [...] C6-7. CC: Stoney Giles M.D.[facility] [id number] Evaluation note* Encounter Date Diagnosis Assessment Notes Treatment Notes Treatment Clinical Notes Jul, Crohns disease (ICD-10 - K50.90) CONTINUE STELARA DIRECTED DECREASE PREDNISONE TO 40 MG DAILY FOR 7 DAYS, THEN DECREASE BY 10 MG WEEKLY RTO 6 WEEKS [email or web address] Other 12-07-2022 Evaluation note* Encounter Date Diagnosis Assessment Notes Treatment Notes Treatment Clinical Notes Jul, Crohns disease (ICD-10 - K50.90) [email or web address] Other 10-12-2022 Evaluation note* Encounter Date Diagnosis Assessment Notes Treatment Notes Treatment Clinical Notes May, Crohns disease (ICD-10 - K50.90) May, Diarrhea (ICD-10 - R19.7) 12 May, 2022 Abdominal cramping (ICD-10 - R10.9) [email or web address] Other 09-14-2022 Evaluation note* Encounter Date Diagnosis Assessment Notes Treatment Notes Treatment Clinical Notes Apr, Crohns disease (ICD-10 - K50.90) PT HAS TRIED AND FAILED HUMIRA AND ENTYVIO START PPW FOR SKYRIZI RTO 4 WEEKS 14 Apr, 2022 Diarrhea (ICD-10 - R19.7) 14 Apr, 2022 Abdominal cramping (ICD-10 - R10.9) [email or web address] Other 06-30-2022 NotePROCEDURE: XR FOOT RT 2V COMPARISON: None. HISTORY: Pain in right foot FINDINGS: BONES:No acute fracture or dislocation. Mild enthesopathic spurring of the calcaneus at the Achilles insertion SOFT TISSUES:Negative. No visible soft tissue swelling. EFFUSION:None visible. OTHER: Negative. IMPRESSION: No acute abnormality Electronically authenticated by: ISABEL CHAVEZ Date: 2022-02-08 17:18[facility]12-13-2021 Evaluation note* Encounter Date Diagnosis Assessment Notes [...] 6 WEEKS, LABS ORDERED AT THIS TIME. [email or web address] Other Evaluation noteNo InformationN[employer] Other Evaluation noteNo assessment information available [facility] Work Phone: Hisi[facility] general Narrative - Reported* Type Description Date Medical History shegalla Surgical History tonsillectomy Hospitalization History childbirth [email or web address] Other Hiskskh general Narrative - Reported* Type Description Date Medical History shegalla Surgical History tonsillectomy Surgical History RFA Hospitalization History childbirth [email or web address] Other History general Narrative - Reported* Type Description Date Medical History shegalla Medical History anxiety Medical History Crohns disease Surgical History tonsillectomy Surgical History RFA Hospitalization History childbirth Hospitalization History see above surg. hx. [email or web address] Other Chief Complaint and Reason for Visit [...] TO HAVE LABS AND START PAPERWORK FOR [facility].06/21 StelaraClinicalClinical Acute IllnessPREDNISONEClinical Acute IllnessClinical Acute MedicinePT ADDED ON PER LRM. PT WAS TO HAVE LABS DRAWN.PREDNISONE [id number] STELARA INJECTIONSTELARA SHOTPT HERE FOR 3 MONTH [...] section and content) DATE CREATED AUTHOR 11/18/2022 [facility] DATE CREATED AUTHOR AUTHOR'S ORGANIZ ATION 12/23/2022 [facility] [facility] DATE CREATED AUTHOR AUTHOR'S ORGANIZ ATION 04/04/2023 [facility] DATE CREATED AUTHOR AUTHOR'S ORGANIZ ATION 08/17/2023 [facility] FOR RECORDS PERTAINING TO PATIENTS WHO ARE [...] BE BASED ON THE PRIMARY CLINICAL RECORDS. [employer] provides no warranty or guarantee of the accuracy or completeness of information in this document.
--- NOTE | 2023-09-03 10:44 | US_ITS ---
[address] [address] Patient Name: PAT LICONA MRN: [id number] date: 1990 Sex: F Assigned Patient Location: Current Patient Location: Accession/Order Number: [id number] Exam Date: 09/03/2023 11:00 Report Date: 09/03/2023 12:01 At the request of: JAVED LEVIN Procedure: US pelvis w/ transvaginal EXAMINATION: US pelvis w/ transvaginal HISTORY: Pelvic Pain In Female R10.2 COMPARISON: No relevant comparison available. FINDINGS: The uterus is normal in size, contour and myometrial echotexture measuring 9.0 x 5.8 x 4.9 cm. The uterus is retroverted. Endometrium measures 7.3 mm, normal. The right ovary is normal measuring 4.3 x 1.8 x 2.1 cm. Normal color and Doppler flow. Multiple normal subcentimeter follicles. Previously identified right ovarian septated cyst is no longer visualized The left ovary is normal measuring 3.1 x 2.0 x 1.8 cm. Normal color Doppler flow. Multiple normal subcentimeter follicles Small amount of fluid seen surrounding the ovaries, nonspecific and likely physiologic in amount US/US pelvis w/ transvaginal IMPRESSION: No acute abnormality Electronically authenticated by: ISABEL CHAVEZ Date: 09/03/2023 12:01
== END 2023-09-03 10:40 | disposition home or self-care (01) ==
LOC: US 10:39
PROVIDERS: PCP Internal Medicine; Visit Provider Obstetrics & Gynecology
DX: R10.2 Pelvic and perineal pain (principal)
CPT/HCPCS: 76830; 76856

== ENCOUNTER 2023-09-13 12:11 | Outpatient (OUT) | payer MEDICAID, SELFPAY ==
--- NOTE | 2023-09-13 12:14 | MR_ITS ---
The [address] [address] Patient Name: PAT LICONA MRN: [id number] date: 1990 Sex: F Assigned Patient Location: MRI Current Patient Location: MRI Accession/Order Number: [id number] Exam Date: 09/13/2023 12:50 Report Date: 09/13/2023 15:29 At the request of: JAYLYN HEART Procedure: MR cervical spine wo con EXAM: MR cervical spine wo con HISTORY: cervical radiculopathy COMPARISON: Cervical spine MR 03/15/2023. TECHNIQUE: Multiplanar multisequence MR imaging of the cervical spine was performed without intravenous contrast. FINDINGS: Alignment: Slight reversal of normal cervical lordosis, similar to prior without substantial subluxation. Vertebrae: Vertebral body heights are maintained. No marrow signal abnormality to suggest neoplasm. Spinal cord: Spinal cord demonstrates normal signal and contour. Craniocervical junction: No focal abnormality. Degenerative changes: C2-C3: No substantial canal or foraminal stenosis. C3-C4: No substantial canal or foraminal stenosis. C4-C5: Minimal disc bulge. No substantial canal or foraminal stenosis. C5-C6: Moderate disc height loss. Small posterior disc osteophyte complex slightly eccentric to left with mild left and minimal right uncovertebral arthropathy. Mild canal stenosis. Mild left and minimal right foraminal stenosis. C6-C7: Minimal eccentric left posterior disc osteophyte complex and minimal left uncovertebral arthropathy. Mild canal stenosis. Minimal left foraminal stenosis. Right foramen is seen. C7-T1: No substantial canal or foraminal stenosis. Visualized portion of the thoracic spine: No high grade canal stenosis. Additional Comments: Visualized soft tissues of the neck appear grossly unremarkable. MR/MR cervical spine wo con IMPRESSION: 1. No substantial progression of degenerative change involving the cervical spine most prominent at C5-C6 and C6-C7 as detailed above. 2. No abnormal spinal cord signal. Electronically authenticated by: BRYAN CANAS Date: 09/13/2023 15:29
--- OUTSIDE RECORDS SUMMARY | 2023-09-13 12:19 | XMS_ITS | CCD ---
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 Name Role Phone Piter Maharaj Unavailable [phone] LUZ Giles Primary Care Provider [phone] MD Piter Maharaj Attending Provider AIDAN Winslow Attending Provider [phone] LUZ Giles Primary Care Provider [phone] AIDAN Winslow Attending Provider [phone] JOSE Chauhan Attending Provider Gilbert Chauhan Admitting Unavailable Gilbert Chauhan Attending Unavailable LUZ Giles Primary Care Provider [phone] DR STONEY GILES Primary Care Unavailable LAKSHMIPATHY [...] LAKSHMIPATHY ., CINTIA Consulting Ileana vailable ISABELLA VAUHGN Consulting Unavailable ELENA, DR MURILLO Primary Care [...] Care Provider MD Dutch Pereyra Attending Provider [phone] JOHN SHUKLA Attending Unavailable STONEY GILES Attending Unavailable NOAH HANSEN Attending Unavailable NOAH HANSEN Referring Unavailable JAVED LEVIN Attending Unavailable Allergies Allergy Classification Reported Allergen(s) Allergy Type Date of Onset Reaction(s) Facility (8 sources) Adhesive agent; Translations: [Adhesive] Allergy to substance 6 Unknown Reaction, Unknown [facility] (13 sources) Latex; Translations: [Latex] Allergy to substance 9 Unknown Reaction, Unknown [facility] (5 sources) BANDAIDS; Translations: [BANDAIDS] Allergy to substance 9 Unknown Reaction [facility] Medications Current Medications Medication Drug Class(es) [...] 09-24-2022 Episodic Other aftercare (1 source) 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) drug therapy; Translations: [OTH [facility] CURRENT DRUG THERAPY] Onset: 09-24-2022 Episodic Other [...] 04-03-2023 ALT [Catalytic activity/Vol] 8 U/L 7-52 [facility] Albumin [Mass/volume] in Ser um or Plasma by Bromocresol green (BCG) dye binding methoOrdered By: Piter Maharaj on 04-03-2023 Albumin BCG dye [Mass/Vol] 4.6 g/dL 3.5-5.7 [facility] Alkaline phosphatase [Enzyma tic activity/volume] in Serum or PlasmaOrdered By: Piter Maharaj on 04-03-2023 ALP [Catalytic activity/Vol] 50 U/L 34-104 [facility] Aspartate aminotransferase [ Enzymatic activity/volume] in Serum or PlasmaOrdered By: Piter Maharaj on 04-03-2023 AST [Catalytic activity/Vol] 10 U/L 13-39 [facility] Basophils Auto (Bld) [#/Vol] Ordered By: Piter Maharaj on 04-03-2023 Basophils (Bld) [#/Vol] 0.1 10*3/uL 0.0-0.2 [facility] Basophils/100 WBC Auto (Bld) Ordered By: Piter Maharaj on 04-03-2023 Basophils/100 WBC (Bld) 0.9 % . [facility] Bilirubin.total [Mass/volume ] in Serum or PlasmaOrdered By: Piter Maharaj on 04-03-2023 Bilirubin [Mass/Vol] 0.6 mg/dL 0.3-1.0 [facility] C reactive protein [Mass/vol ume] in Serum or PlasmaOrdered By: Piter Maharaj on 04-03-2023 CRP [Mass/Vol] < 0.5 mg/dL 0.0-0.5 [facility] C-Reactive Proteinon 023 CRP [Mass/Vol] mg/L Normal 0.0-0.5 [facility] Comment on above: Order Comment: Reaso n for Exam Crohns disease Result Comment: PERF ORMED BY: [place] [address] PATHOLOGIST JOURNEYMAN MECHANIC JOANA SALCIDO M.D. Performed By: #### C RP, CMP #### [facility] [address] [place] [address] Calcium [Mass/volume] in Ser um or PlasmaOrdered By: Piter Maharaj on 04-03-2023 Calcium [Mass/Vol] 8.8 mg/dL 8.6-10.3 [facility] Carbon dioxide, total [Moles /volume] in Serum or PlasmaOrdered By: Piter Maharaj on 04-03-2023 CO2 [Moles/Vol] 25.0 mmol/L 21.0-31.0 [facility] Chloride [Moles/volume] in S darwin or PlasmaOrdered By: Piter Maharaj on 04-03-2023 Chloride [Moles/Vol] 110 mmol/L 98-107 [facility] Complete Blood Count Auto Di ffon 04-03-2023 Basophils (Bld) [#/Vol] 0.1 10*3/uL Normal 0.0-0.2 [facility] Comment on above: Order Comment: Reaso n for Exam Crohns disease Performed By: #### E SR, CBC #### [facility] [address] [place] [address] [place] Basophils/100 WBC (Bld) 0.9 % Normal . [facility] Comment on above: Order Comment: Reaso n for Exam Crohns disease Performed By: #### E SR, CBC #### [facility] [address] [place] [address] [place] Eosinophils (Bld) [#/Vol] 0.1 10*3/uL Normal 0.0-0.45 [facility] Comment on above: Order Comment: Reaso n for Exam Crohns disease Performed By: #### E SR, CBC #### [facility] [address] [place] [address] [place] Eosinophils/100 WBC (Bld) 1.3 % Normal . [facility] Comment on above: Order Comment: Reaso n for Exam Crohns disease Performed By: #### E SR, CBC #### [facility] [address] [place] [address] [place] Erythrocyte distribution width (RBC) [Ratio] 12.1 % Normal 11.9-15.3 [facility] Comment on above: Order Comment: Reaso n for Exam Crohns disease Performed By: #### E SR, CBC #### [facility] [address] [place] [address] [place] Hematocrit (Bld) [Volume fraction] 39.4 % Normal 34.0-46.4 [facility] Comment on above: Order Comment: Reaso n for Exam Crohns disease Performed By: #### E SR, CBC #### [facility] [address] [place] [address] [place] Hemoglobin (Bld) [Mass/Vol] 13.5 g/dL Normal 11.8-15.4 [facility] Comment on above: Order Comment: Reaso n for Exam Crohns disease Performed By: #### E SR, CBC #### [facility] [address] [place] [address] Lymphocytes (Bld) [#/Vol] 1.9 10*3/uL Normal 1.00-4.8 [facility] Comment on above: Order Comment: Reaso n for Exam Crohns disease Performed By: #### E SR, CBC #### [address] Lymphocytes/100 WBC (Bld) 31.9 % Normal . [facility] Comment on above: Order Comment: Reaso n for Exam Crohns disease Performed By: #### E SR, CBC #### [address] MCH (RBC) [Entitic mass] 30.4 pg Normal 24.7-34.3 [facility] Comment on above: Order Comment: Reaso n for Exam Crohns disease Performed By: #### E SR, CBC #### [facility] [address] [place] [address] MCV (RBC) [Entitic vol] 88.7 fL Normal 80-100 [facility] Comment on above: Order Comment: Reaso n for Exam Crohns disease Performed By: #### E SR, CBC #### [facility] [address] [place] [address] Mean Corpuscular HGB Conc 34.2 g/dL Normal 32.0-35.0 [facility] Comment on above: Order Comment: Reaso n for Exam Crohns disease Performed By: #### E SR, CBC #### [facility] [address] [place] [address] [place] Monocytes (Bld) [#/Vol] 0.5 10*3/uL Normal 0.0-0.8 [facility] Comment on above: Order Comment: Reaso n for Exam Crohns disease Performed By: #### E SR, CBC #### [address] Monocytes/100 WBC (Bld) 7.5 % Normal . [facility] Comment on above: Order Comment: Reaso n for Exam Crohns disease Performed By: #### E SR, CBC #### [facility] [address] Neutrophils (Bld) [#/Vol] 3.5 10*3/uL Normal 1.8-7.7 [facility] Comment on above: Order Comment: Reaso n for Exam Crohns disease Performed By: #### E SR, CBC #### [facility] [address] Neutrophils/100 WBC (Bld) 58.4 % Normal . [facility] Comment on above: Order Comment: Reaso n for Exam Crohns disease Performed By: #### E SR, CBC #### [facility] [address] [place] [address] NRBC% 0.2 /100{WBC} Normal 0-0.5 [facility] Comment on above: Order Comment: Reaso n for Exam Crohns disease Performed By: #### E SR, CBC #### [facility] [address] [place] [address] Platelet mean volume (Bld) [Entitic vol] 9.3 fL Normal 6.3-10.7 [facility] Comment on above: Order Comment: Reaso n for Exam Crohns disease Performed By: #### E SR, CBC #### [facility] [address] [place] [address] [place] Platelets (Bld) [#/Vol] 189 10*3/uL Normal 150-450 [facility] Comment on above: Order Comment: Reaso n for Exam Crohns disease Performed By: #### E SR, CBC #### [facility] [address] [place] [address] [place] RBC (Bld) [#/Vol] 4.44 10*6/uL Normal 3.60-5.00 [facility] Comment on above: Order Comment: Reaso n for Exam Crohns disease Performed By: #### E SR, CBC #### [address] WBC (Bld) [#/Vol] 6.1 10*3/uL Normal 3.8-11.6 [facility] Comment on above: Order Comment: Reaso n for Exam Crohns disease Performed By: #### E SR, CBC #### [address] Comprehensive Metabolic Pane bob 04-03-2023 Albumin [Mass/Vol] 4.6 g/dL Normal 3.5-5.7 [facility] Comment on above: Order Comment: Reaso n for Exam Crohns disease Performed By: #### C RP, CMP #### [address] Albumin/Globulin [Mass ratio] 2.3 {ratio} Normal [facility] Comment on above: Order Comment: Reaso n for Exam Crohns disease Performed By: #### C RP, CMP #### [address] ALP [Catalytic activity/Vol] 50 U/L Normal 34-104 [facility] Comment on above: Order Comment: Reaso n for Exam Crohns disease Performed By: #### C RP, CMP #### [address] ALT [Catalytic activity/Vol] 8 U/L Normal 7-52 [facility] Comment on above: Order Comment: Reaso n for Exam Crohns disease Performed By: #### C RP, CMP #### [address] Anion gap [Moles/Vol] 8.9 mmol/L Normal 6.0-15.0 [facility] Comment on above: Order Comment: Reaso n for Exam Crohns disease Performed By: #### C RP, CMP #### [address] AST [Catalytic activity/Vol] 10 U/L Low 13-39 [facility] Comment on above: Order Comment: Reaso n for Exam Crohns disease Performed By: #### C RP, CMP #### [facility] [address] Bilirubin [Mass/Vol] 0.6 mg/dL Normal 0.3-1.0 [facility] Comment on above: Order Comment: Reaso n for Exam Crohns disease Performed By: #### C RP, CMP #### [facility] [address] Calcium [Mass/Vol] 8.8 mg/dL Normal 8.6-10.3 [facility] Comment on above: Order Comment: Reaso n for Exam Crohns disease Performed By: #### C RP, CMP #### [facility] [address] Chloride [Moles/Vol] 110 mmol/L High 98-107 [facility] Comment on above: Order Comment: Reaso n for Exam Crohns disease Performed By: #### C RP, CMP #### [facility] [address] CO2 [Moles/Vol] 25.0 mmol/L Normal 21.0-31.0 [facility] Comment on above: Order Comment: Reaso n for Exam Crohns disease Performed By: #### C RP, CMP #### [facility] [address] [place] [address] Creatinine [Mass/Vol] 0.89 mg/dL Normal 0.60-1.20 [facility] Comment on above: Order Comment: Reaso n for Exam Crohns disease Performed By: #### C RP, CMP #### [facility] [address] [place] [address] GFR/1.73 sq M.predicted MDRD (S/P/Bld) [Vol rate/Area] mL/min/{1.73_m2} Normal [facility] Comment on above: Order Comment: Reaso n for Exam Crohns disease Performed By: #### C RP, CMP #### [facility] [address] [place] [address] Globulin (S) [Mass/Vol] 2.0 g/dL Normal [facility] Comment on above: Order Comment: Reaso n for Exam Crohns disease Performed By: #### C RP, CMP #### [facility] [address] [place] [address] [place] Glucose [Mass/Vol] 91 mg/dL Normal 70-100 [facility] Comment on above: Order Comment: Reaso n for Exam Crohns disease Result Comment: [place] Glucose Reference Range is dependent on time and content of last meal. Glucose of more than 200 mg/dL in a nonstressed, ambulatory subject supports the diagnosis of Diabetes Mellitus. ADA recommended reference range Performed By: #### C RP, CMP #### [facility] [address] Potassium [Moles/Vol] 3.9 mmol/L Normal 3.5-5.1 [facility] Comment on above: Order Comment: Reaso n for Exam Crohns disease Performed By: #### C RP, CMP #### [facility] [address] [place] [address] [place] Protein [Mass/Vol] 6.6 g/dL Normal 6.4-8.9 [facility] Comment on above: Order Comment: Reaso n for Exam Crohns disease Performed By: #### C RP, CMP #### [facility] [address] [place] [address] [place] Sodium [Moles/Vol] 140 mmol/L Normal 136-145 [facility] Comment on above: Order Comment: Reaso n for Exam Crohns disease Performed By: #### C RP, CMP #### [place] [address] [place] Urea nitrogen [Mass/Vol] 12 mg/dL Normal 7-25 [facility] Comment on above: Order Comment: Reaso n for Exam Crohns disease Performed By: #### C RP, CMP #### [facility] [address] [place] [address] [place] Creatinine [Mass/volume] in Serum or PlasmaOrdered By: Piter Maharaj on 04-03-2023 Creatinine [Mass/Vol] 0.89 mg/dL 0.60-1.20 [facility] Eosinophils Auto (Bld) [#/Vo l]Ordered By: Piter Maharaj on 04-03-2023 Eosinophils (Bld) [#/Vol] 0.1 10*3/uL 0.0-0.45 [facility] Eosinophils/100 WBC Auto (Bl d)Ordered By: Piter Maharaj on 04-03-2023 Eosinophils/100 WBC (Bld) 1.3 % . [facility] Erythrocyte Sedimentation Ra sri 04-03-2023 ESR (Bld) [Velocity] mm/h Normal 0-19 [facility] Comment on above: Order Comment: Reaso n for Exam Crohns disease Result Comment: PERF ORMED BY: [place] [address] PATHOLOGIST JOURNEYMAN MECHANIC JOANA SALCIDO M.D. Performed By: #### E SR, CBC #### [address] Erythrocyte distribution wid th Auto (RBC) [Ratio]Ordered By: Piter Maharaj on 04-03-2023 Erythrocyte distribution width (RBC) [Ratio] 12.1 % 11.9-15.3 [facility] Erythrocyte sedimentation ra te by Photometric methodOrdered By: Piter Maharaj on 04-03-2023 ESR Photometric method (Bld) [Velocity] < 1 mm/hr 0- [facility] Globulin Calc (S) [Mass/Vol] Ordered By: Piter Maharaj on 04-03-2023 Globulin (S) [Mass/Vol] 2.0 g/dL [facility] Glucose [Mass/volume] in Ser um or PlasmaOrdered By: Piter Maharaj on 04-03-2023 Glucose [Mass/Vol] 91 mg/dL 70-100 [facility] Comment on above: ADA recommended refe rence rangeRandom Glucose Reference Range is dependent on time and content of last meal. Glucose of more than 200 mg/dL in a nonstressed, ambulatory subject supports the diagnosis of Diabetes Mellitus. Hematocrit Auto (Bld) [Volum e fraction]Ordered By: Piter Maharaj on 04-03-2023 Hematocrit (Bld) [Volume fraction] 39.4 % 34.0-46.4 [facility] Hemoglobin [Mass/volume] in BloodOrdered By: Piter Maharaj on 04-03-2023 Hemoglobin (Bld) [Mass/Vol] 13.5 g/dL 11.8-15.4 [facility] Leukocytes [#/volume] correc ricardo for nucleated erythrocytes in Blood by Automated counOrdered By: Piter Maharaj on 04-03-2023 WBC corrected for nucl RBC Auto (Bld) [#/Vol] 6.1 10*3/uL 3.8-11.6 [facility] Lymphocytes Auto (Bld) [#/Vo l]Ordered By: Piter Maharaj on 04-03-2023 Lymphocytes (Bld) [#/Vol] 1.9 10*3/uL 1.00-4.8 [facility] Lymphocytes/100 WBC Auto (Bl d)Ordered By: Piter Maharaj on 04-03-2023 Lymphocytes/100 WBC (Bld) 31.9 % . [facility] MCH Auto (RBC) [Entitic mass ]Ordered By: Piter Maharaj on 04-03-2023 MCH (RBC) [Entitic mass] 30.4 pg 24.7-34.3 [facility] MCHC Auto (RBC) [Mass/Vol]Or dered By: Piter Maharaj on 04-03-2023 MCHC (RBC) [Mass/Vol] 34.2 g/dL 32.0-35.0 [facility] MCV Auto (RBC) [Entitic vol] Ordered By: Piter Maharaj on 04-03-2023 MCV (RBC) [Entitic vol] 88.7 fL 80-100 [facility] Monocytes Auto (Bld) [#/Vol] Ordered By: Piter Maharaj on 04-03-2023 Monocytes (Bld) [#/Vol] 0.5 10*3/uL 0.0-0.8 [facility] Monocytes/100 WBC Auto (Bld) Ordered By: Piter Maharaj on 04-03-2023 Monocytes/100 WBC (Bld) 7.5 % . [facility] Neutrophils Auto (Bld) [#/Vo l]Ordered By: Piter Maharaj on 04-03-2023 Neutrophils (Bld) [#/Vol] 3.5 10*3/uL 1.8-7.7 [facility] Neutrophils/100 WBC Auto (Bl d)Ordered By: Piter Maharaj on 04-03-2023 Neutrophils/100 WBC (Bld) 58.4 % . [facility] No Panel InformationOrdered By: Piter Maharaj on 04-03-2023 Estimated GFR (CKD-EPI) > 60.0 mL/Min [facility] Creatinine Clearance (Chem N/A [facility] Nucleated erythrocytes [Pres ence] in Blood by Automated countOrdered By: Piter Maharaj on 04-03-2023 Nucleated RBC Auto Ql (Bld) 0.2 /100{WBC} 0-0.5 [facility] Platelet mean volume Auto (B ld) [Entitic vol]Ordered By: Piter Maharaj on 04-03-2023 Platelet mean volume (Bld) [Entitic vol] 9.3 fL 6.3-10.7 [facility] Platelets Auto (Bld) [#/Vol] Ordered By: Piter Maharaj on 04-03-2023 Platelets (Bld) [#/Vol] 189 10*3/uL 150-450 [facility] Potassium [Moles/volume] in Serum or PlasmaOrdered By: Piter Maharaj on 04-03-2023 Potassium [Moles/Vol] 3.9 mmol/L 3.5-5.1 [facility] Protein [Mass/volume] in Ser um or PlasmaOrdered By: Piter Maharaj on 04-03-2023 Protein [Mass/Vol] 6.6 g/dL 6.4-8.9 [facility] RBC Auto (Bld) [#/Vol]Ordere d By: Piter Maharaj on 04-03-2023 RBC (Bld) [#/Vol] 4.44 10*6/uL 3.60-5.00 [facility] Serum or plasma albumin/glob ulin mass ratioOrdered By: Piter Maharaj on 04-03-2023 Albumin/Globulin [Mass ratio] 2.3 {ratio} [facility] Serum or plasma anion gap de terminationOrdered By: Piter Maharaj on 04-03-2023 Anion gap [Moles/Vol] 8.9 mmol/L 6.0-15.0 [facility] Sodium [Moles/volume] in Ser um or PlasmaOrdered By: Piter Maharaj on 04-03-2023 Sodium [Moles/Vol] 140 mmol/L 136-145 [facility] Urea nitrogen [Mass/volume] in Serum or PlasmaOrdered By: Ptier Maharaj on 04-03-2023 Urea nitrogen [Mass/Vol] 12 mg/dL 7-25 [facility] WBC Auto (Bld) [#/Vol]Ordere d By: Piter Maharaj on 04-03-2023 WBC (Bld) [#/Vol] 6.1 10*3/uL 3.8-11.6 [facility] XR cervical spine w flex/ext on 04-03-2023 XR cervical spine w flex/ext [facility] [place] [address] XRay Report Signed Patient: Alejandra Licona MR#: [id number] : 1990 Acct:[id number] Age/Sex: 32 / F ADM Date: 04/03/23 Loc: XD Room: [facility] Attending Dr: Dutch Pereyra MD Copies to: [...] Brian Muhammad M.D.04/03/2023 7:24 PM Dictation Location: [place] [address] Transcribed By: [facility] 04/03/231923 Dictated By: Brian Muhammad II, MD 04/03/231921 Signed By: 04/03/231923 [facility] PREG HCG QUALon 12-11-2022 , QUAL Negative Normal NEGATIVE [facility] Comment on above: Performed By: #### C MVM #### [facility] [address] [place] [address] Dr. Niurka Blount PREG HCG QUALon 12-04-2022 , QUAL Negative Normal NEGATIVE [facility] Comment on above: Performed By: #### P REG #### [facility] [address] [place] [address] Dr. Niurka Blount Coding Summary.on 11-17-2022 Coding Summary. CD:[id number] bWw+PGhlYWQ+HF4JALC mO07nbNSrkZ8mI7ZADG lOSywgQVBQTElOSyIgb xLsZD2kmTVbLKYe IC8+QD1zQSZyYnhmiCM li9F6xFE3S31min3hBR nstLP5WSQwLtOvitbfr 4lybOr5KMqqMdgvGqFh VTGzhK88UIP0fG26Gp1 7mKXkvYGnb3sbwNt6Ut KdLHYbUVM0mFqjNJyww 4IsLFEjT56avZObo4D0 IGNvbGxhcHNlOyBlbXB 8zE7rNHfddpusm5lmdg sjSdb7rb51lMBak4V7l FK4B0QixkY7CJQsrWBt VldjfPLQtU0aotpmz2x ezulkJmGcYWCdTPi7VD z9NEDruTgrAlOcPS38I LP3JRDhvjGlD2NiGRDv lAvaRrC2x3P1Hz1OI6O SNlurM2ARPYNLPRuebW Q+XS32yx02Y9DoNoahW je9QNUbQEE1eGQ0jB6f YVFjQChiu0O0fYZ3Z4S znpRlbr4eg6rvLSNfSM qlR89lzITzs0T0EECsa DS2AIWtbJsqMcFfpL04 Oyc+BABgnZpuw3SjAbd ay3jju4xyfFr9ItqzLI JehoPiiRegZMO1o2KnR p9fLWRpqTG8uHX3dZ0k UaMlHgG8KBokK727EbW bbWQfPvluI07dO1RfhS A+VYGgDcg6XCSjhPjyB E3jU9SqPNWhowwwcTWt mNroRS1uYORwljcdEVC npF4nCHAcP6g6TvIcKi Z3ENdgW1TqBDHqzymeO o87uM9zJpWoKnB6YUpg Z8LgrnM3CVWpoWFcTQs aNDX4Q78zq7V4MBAfXD VaIJD0oDJ8jA9dpQbyq jogbGVmdDsgdmVydGlj HNlnHKekQ106RXMapNu nPkNvZGluZyBEYXRlOi AgMDQvMDgvMjAyMzwvd GQ+SREzMHJ8lBzkAQRr tOCyDAhzSi4oqKxvwKp dAF1rZHYinvrnZZBkqC 1aCEPiwUQqyPnfRU6gS YWodyeyy259BiRzMSN5 VTVdnPNtD4JkbJ9eJeM oHUYhDKSrO3XlhAEuIT jxS526KRscSpP7KPHho lRhG5BaMAQuiAqoQmN0 s2C5Tr0Qq8OgxokhQ2G unJOfAaNkBxxsNZh1G3 RkPjwvdHI+QA89FKOqE E18GRt2XVK2qRatIQyl RONsG2VvkX5kWcNaAJG kZGRkOyc+PHRhYmxlIH dpZHRoPScxMDAlJyBzd FfnJY0kYq9rGFUxQWCj lRtbcASlKrHgs5vpUID mPKbtJH2zoVosY6LwcF L7FYZwj0b0Jo03E89vZ 3JvdXA+EALgbFD9iWV7 xP0kHyPcMiC8JAnrW92 8YrGnbYZnGlldy8uul7 yjtUv2BuW6RUViftCye AbpCQJ1f0NsSc55A14w IHdpZHRoPSIxNSUiIHZ rhAwlrm3feZ0zSq7+PG XncBG8mUU6kY5yEvNsI jT4GIzcJ722KgNujVZs Guplu7pnf0cniZh9RiJ cBXKntnFgyHodOKK1u1 BhCm96D3AxfOapz4UhO jb5yw12tBObk0G9nCA2 Q8QmPBCdpnpkqPYtrSm qIO2pZTQjqhvmDRAgyW 2vJFFhN2y0XjImWnI6M VxyQ8GgvaI5ZSVfrOTq GPOrpGCSfD0ayrsio3g bamzpEsKwZTKlGKm3DX j2FQEmzMtoCcGzSJL9L rU4JHI6sIOzmJ9wrOqw bkfqpA0pVim+VNB3dVV fkKBPIP4nEnwsdOO+PH NnLSU5yYkuEMxoWWZhc K8nKPEqM9y1KmDmNxA5 AIlcD5MhekG5NVWkkAH gXFMvrJGDdV4rbuiih4 gymiuuDwKyNIAoEEl6X Qj5YADdyWdvOcQwQIC2 MfZ0HSQ7wPLnqB4kvWi bvdbcbN3bCrm+QmlydG xfCTL8NBw7G3GtNwk9U CEsmBorXG6ppUCnRHtm Zd5nnEjxpIguCL8aOPY puyrzk530XkCyg8dwGF EkvRMyZFldNIL2P54zc 6W9DFUtLHXmGMC5hZJ1 rP8kyZesfodltGRvnDp gdmVydGljYWwtYWxpZ2 53BINnsXokGbFlDKm7B 7WgMwr5OTLyqNnhSP8k kQCqTLzyYw4rfPunhFa gYB7dYAPehhqcz101Fc Oyi6jpZRSkxVYiKIgvK WQ0G99ja8A5WKKwSRTl FWF0dYV3xB4zpPjmkik gbGVmdDsgdmVydGljYW hgPHxcZ174OGVctQbyN tCzcQd6R4CuGqx9QSWr aEloCF0veODwPHwpTq9 suNbypJzzWW4yBPAnio jmj133QuNan2baFRLqu GNwJYswSOO1R18jn9B0 NCFzLTZjJUK7aWB2lA0 hbGlnbjogbGVmdDsgdm QczUggVHvaROsyN117B HRvcDsnPlBhdGllbnQg NJppPAc8W6XgGgozvWR +JW50EJXpTZ74jODlmD Ijt1sbeLa1AbIiQBVxT KF3zUapJBgaa2YpZPJg B33niLVjk7J1UXUhaMq faNXtBiVsoZC0gK7zNH ablrjpk3fgwemuVujbh 8gyus68gZ10F10gBDyn ZHRoPSIzMCUiIHZhbGl mmc9rxZ4hPe2+PGNvbC S4aFF1vC4gSZBxWuA6K CaiI633ClDudNHeQdbs p6mfe5qulIh2UrX6KZR eafHewKlsSRS4c2RpXc 59O21dQEhjYQAeYMZcO PQzBVCfjMnqpz3qhU3l Ii8+MFRmqVG9rIO9rZ8 bOuWgDmM1LLwoS317Bm LweUYcUtwhJ97aG8Drt XA+YVYrHjo6RTSwuJod OX6ffVIbYYqeJj8dFKZ 7KcAqUcBeYTcvF0BeCI DxobaramrupHE0SGWiB IHvvA20Mf1agPwoFSWj iJTMkG9zasyuf9zectz kYwBfELVzSHl6GBp4DB WgmQgtQmRrMSD3SuD1F UK2dZYldE0nnClbleld lQ3pU0KzKGEipbrpUj1 5rT1nCzFjCbV3QWsgSn c+OU3CMk5SYqxvDMxFE FkgTTwvdGQ+PHRkIHN0 uTovDWuyFLNloM7aTLO mZ7m7UcHpZkZ4PZcfH7 FrROYvwhdnTz10zX4eU aYtReA5FPtgB4JnjbK9 OAMaeVDrNYiuYCT1A12 re9N4WBDlXNOsYZI3aZ Z9dF0twNhkiospdETxp DsgdmVydGljYWwtYWxp O405VHGbbMcrTuQsArP zFqV5JBX7U0MsJkc4CT LubVrlHX1itWPxOSgzC x6faEbwaVkjNO3rWOGw wzzvBQVnsO3sWTZnlZN yiImqUO0bLKFmvxxot1 83TrXrXOY1LQOlkLYgI 1BamR0mMhMvPPBqALFw S9GfhAPuRDanW993FKv kOfE6YLVfpnSjU8HkYF JpkRohZwL8g4Z6Ad9sE iBZZWFyczwvdGQ+PHRk DCH8sZeuGOlaTVImrH4 oHMVrH4s7XzPqDuR8OK bdD0WsAGGofhisPl39o I5cVvEkYtB3QJmdE7Qu ldN1ADLriCMfJKiwFLA 9J99vi0V4EHWlXMBiZP A0pJR1jM9mvEypescze GVmdDsgdmVydGljYWwt ECgiW608AOUzvXlxQcO lbWFsZTwvdGQ+PHRkIH E5cFutRKrbHECpbH5iU PNbI5k1YsEsRgV3QUhv H7BaYMMpptvqWf74dZ5 hKpWjPrR7SVsmG6Inmq U0HAQqeYVtWEgfDAT9V 45zt0E5NGKqBSCeXYN7 xOS6pQ7wlTlgrxhmkTA mdDsgdmVydGljYWwtYW klS765ULTwuYolNxcvJ gZAbo3qBW9xWklywZE+ RR51tn45Z2TbZqynUry 2POEeXWJ8xNH5gF9wNB QbDMktp6J7hOR7I6Axr mCvdm6im8cdNARnCPmu P07hhBHmy9E1GEJcmGR 1MCFjfVmpZsCehW42Gk c+MWDgtNzbt7NjAcptm 2yqc5ymgZk5XlDaLWVc tzKcoLdzHJE8n0XwLl6 0O93gDEnnDJKmGSMpVE PmJBVwnJxtjf7xuE6nC i8+PLPstBD3qID5yR2n KvSmQhR1POkyK931VpS hqNRhAcqzf0zkn7vanI o9LzZqFOFwclLtlPzeJ DV8p1JeCs58P9RauBab v4WtZhr0jo26eEKaw5D 6sNK3W1CgCNPzckxifU UbgKqgTX7nOCPxnatfV UQqdI2kUIQrB9a3WvSl LqO2KCibJ6MuxiT6BRG tqGBpVLMnxJSTrH1hxb jra5pxxxmhJeUuDGIxI Tt7WDt7VDAknBfbTbQx OZJ3HtV4IWI7sRXnjZ7 pbWnuikhqrZ2gXbu+UG p5d8zrcNQgWV6wzRE9S V06OQ84iOAyx4P5jJJ2 L5HeUYSiozendgtotYD 7IAAkNKSlgH53Em6wuM tlVp4fNPCqDDL8IBGir NUkO3LgdY9bHwMkNBWx JHFlG4JdkGLgIUtuO45 4KRzqLzD9RTDfnvPzM9 ZuKILmoBfgOiR4h2T0S b5CCM01NU95AP31kHFl t4B8uXT1A1OnVPVonhw vndnkdFE3YIIqEJTqvV 38Ch4ehTeiYy2fIYKlK WB5KRDmeEEzM5LreD1x VpKmZGKlZEUxG5JpyTT kESueZ569LWtkLvT0GL PrwlCbN4RsONOrwBtbU xH6l5A4Tu8YTp74QZ55 QC31gVRff7G1bKL8Z3P wJULhqstlnhswhEF0HZ YbYSHdgA01Pw8vsWsqA i6hNPNtTLW6NSTuyOFw F6JaqZ6mGdYxUNYrVGG kY0QcrWVbZSazY945BC ofEkG3ISNeteMfE3HgT IVuqDgeCkD5t5I1Jp7R GZsswql0D7WtIqfclWF +NZ03IYQwMP97zNNgpR Izy9urdKi3QuInXJAzN WZ4jTbvCVwbb0DyHNKw D48ypLHa (more content not included)... Normal [facility] Physician Orderon 11-07-2022 Physician Order [id number] Normal [facility] Basic Metabolic Panelon 10-10 Anion gap [Moles/Vol] 12.5 mmol/L Normal 6.0-15.0 [facility] Comment on above: Order Comment: Reaso n for Exam Preprocedural examination Performed By: #### C BC, BMP #### [address] Calcium [Mass/Vol] 9.4 mg/dL Normal 8.6-10.3 [facility] Comment on above: Order Comment: Reaso n for Exam Preprocedural examination Result Comment: PERF ORMED BY: [place] [address] PATHOLOGIST [employer] JOANA SALCIDO M.D. Performed By: #### C BC, BMP #### [facility] [address] [place] [address] [place] Chloride [Moles/Vol] 105 mmol/L Normal 98-107 [facility] Comment on above: Order Comment: Reaso n for Exam Preprocedural examination Performed By: #### C BC, BMP #### [place] [address] [place] CO2 [Moles/Vol] 26.4 mmol/L Normal 21.0-31.0 [facility] Comment on above: Order Comment: Reaso n for Exam Preprocedural examination Performed By: #### C BC, BMP #### [address] Creatinine [Mass/Vol] 0.91 mg/dL Normal 0.60-1.20 [facility] Comment on above: Order Comment: Reaso n for Exam Preprocedural examination Performed By: #### C BC, BMP #### [place] [address] [place] GFR/1.73 sq M.predicted MDRD (S/P/Bld) [Vol rate/Area] mL/min/{1.73_m2} Normal [facility] Comment on above: Order Comment: Reaso n for Exam Preprocedural examination Performed By: #### C BC, BMP #### [facility] [address] [place] [address] [place] Glucose [Mass/Vol] 91 mg/dL Normal 74-109 [facility] Comment on above: Order Comment: Reaso n for Exam Preprocedural examination Result Comment: [place] Glucose Reference Range is dependent on time and content of last meal. Glucose of more than 200 mg/dL in a nonstressed, ambulatory subject supports the diagnosis of Diabetes Mellitus. ADA recommended reference range Performed By: #### C BC, BMP #### [facility] [address] Potassium [Moles/Vol] 3.9 mmol/L Normal 3.5-5.1 [facility] Comment on above: Order Comment: Reaso n for Exam Preprocedural examination Performed By: #### C BC, BMP #### [facility] [address] Sodium [Moles/Vol] 140 mmol/L Normal 136-145 [facility] Comment on above: Order Comment: Reaso n for Exam Preprocedural examination Performed By: #### C BC, BMP #### [facility] [address] Urea nitrogen [Mass/Vol] 15 mg/dL Normal 7-25 [facility] Comment on above: Order Comment: Reaso n for Exam Preprocedural examination Performed By: #### C BC, BMP #### [facility] [address] Basophils Auto (Bld) [#/Vol] Ordered By: Gilbert Chauhan on 10-26-2022 Basophils (Bld) [#/Vol] 0.1 10*3/uL 0.0-0.2 [facility] Basophils/100 WBC Auto (Bld) Ordered By: Gilbert Chauhan on 10-26-2022 Basophils/100 WBC (Bld) 0.8 % . [facility] Calcium [Mass/volume] in Ser um or PlasmaOrdered By: Gilbert Chauhan on 10-26-2022 Calcium [Mass/Vol] 9.4 mg/dL 8.6-10.3 [facility] Carbon dioxide, total [Moles /volume] in Serum or PlasmaOrdered By: Gilbert Chauhan on 10-26-2022 CO2 [Moles/Vol] 26.4 mmol/L 21.0-31.0 [facility] Chloride [Moles/volume] in S darwin or PlasmaOrdered By: Gilbert Chauhan on 10-26-2022 Chloride [Moles/Vol] 105 mmol/L 98-107 [facility] Complete Blood Count Auto Di ffon 10-26-2022 Basophils (Bld) [#/Vol] 0.1 10*3/uL Normal 0.0-0.2 [facility] Comment on above: Order Comment: Reaso n for Exam Preprocedural examination Result Comment: PERF ORMED BY: [place] [address] PATHOLOGIST [employer] JOANA SALCIDO M.D. Performed By: #### C BC, BMP #### [address] Basophils/100 WBC (Bld) 0.8 % Normal . [facility] Comment on above: Order Comment: Reaso n for Exam Preprocedural examination Performed By: #### C BC, BMP #### [place] [address] [place] Eosinophils (Bld) [#/Vol] 0.1 10*3/uL Normal 0.0-0.45 [facility] Comment on above: Order Comment: Reaso n for Exam Preprocedural examination Performed By: #### C BC, BMP #### [place] [address] [place] Eosinophils/100 WBC (Bld) 1.6 % Normal . [facility] Comment on above: Order Comment: Reaso n for Exam Preprocedural examination Performed By: #### C BC, BMP #### [address] Erythrocyte distribution width (RBC) [Ratio] 12.3 % Normal 11.9-15.3 [facility] Comment on above: Order Comment: Reaso n for Exam Preprocedural examination Performed By: #### C BC, BMP #### [address] Hematocrit (Bld) [Volume fraction] 39.7 % Normal 34.0-46.4 [facility] Comment on above: Order Comment: Reaso n for Exam Preprocedural examination Performed By: #### C BC, BMP #### [place] [address] [place] Hemoglobin (Bld) [Mass/Vol] 13.9 g/dL Normal 11.8-15.4 [facility] Comment on above: Order Comment: Reaso n for Exam Preprocedural examination Performed By: #### C BC, BMP #### [address] Lymphocytes (Bld) [#/Vol] 1.5 10*3/uL Normal 1.00-4.8 [facility] Comment on above: Order Comment: Reaso n for Exam Preprocedural examination Performed By: #### C BC, BMP #### [address] Lymphocytes/100 WBC (Bld) 20.0 % Normal . [facility] Comment on above: Order Comment: Reaso n for Exam Preprocedural examination Performed By: #### C BC, BMP #### [address] MCH (RBC) [Entitic mass] 30.9 pg Normal 24.7-34.3 [facility] Comment on above: Order Comment: Reaso n for Exam Preprocedural examination Performed By: #### C BC, BMP #### [address] MCV (RBC) [Entitic vol] 88.2 fL Normal 80-100 [facility] Comment on above: Order Comment: Reaso n for Exam Preprocedural examination Performed By: #### C BC, BMP #### [address] Mean Corpuscular HGB Conc 35.1 g/dL High 32.0-35.0 [facility] Comment on above: Order Comment: Reaso n for Exam Preprocedural examination Performed By: #### C BC, BMP #### [address] Monocytes (Bld) [#/Vol] 0.6 10*3/uL Normal 0.0-0.8 [facility] Comment on above: Order Comment: Reaso n for Exam Preprocedural examination Performed By: #### C BC, BMP #### [facility] [address] [place] [address] [place] Monocytes/100 WBC (Bld) 7.6 % Normal . [facility] Comment on above: Order Comment: Reaso n for Exam Preprocedural examination Performed By: #### C BC, BMP #### [facility] [address] Neutrophils (Bld) [#/Vol] 5.1 10*3/uL Normal 1.8-7.7 [facility] Comment on above: Order Comment: Reaso n for Exam Preprocedural examination Performed By: #### C BC, BMP #### [facility] [address] Neutrophils/100 WBC (Bld) 70.0 % Normal . [facility] Comment on above: Order Comment: Reaso n for Exam Preprocedural examination Performed By: #### C BC, BMP #### [address] NRBC% 0.3 /100{WBC} Normal 0-0.5 [facility] Comment on above: Order Comment: Reaso n for Exam Preprocedural examination Performed By: #### C BC, BMP #### [address] Platelet mean volume (Bld) [Entitic vol] 9.7 fL Normal 6.3-10.7 [facility] Comment on above: Order Comment: Reaso n for Exam Preprocedural examination Performed By: #### C BC, BMP #### [place] [address] [place] Platelets (Bld) [#/Vol] 188 10*3/uL Normal 150-450 [facility] Comment on above: Order Comment: Reaso n for Exam Preprocedural examination Performed By: #### C BC, BMP #### [place] [address] [place] RBC (Bld) [#/Vol] 4.50 10*6/uL Normal 3.60-5.00 [facility] Comment on above: Order Comment: Reaso n for Exam Preprocedural examination Performed By: #### C BC, BMP #### [facility] [address] [place] [address] [place] WBC (Bld) [#/Vol] 7.3 10*3/uL Normal 3.8-11.6 [facility] Comment on above: Order Comment: Reaso n for Exam Preprocedural examination Performed By: #### C BC, BMP #### [facility] [address] Creatinine [Mass/volume] in Serum or PlasmaOrdered By: Gilbert Chauhan on 10-26-2022 Creatinine [Mass/Vol] 0.91 mg/dL 0.60-1.20 [facility] Eosinophils Auto (Bld) [#/Vo l]Ordered By: Gilbert Chauhan on 10-26-2022 Eosinophils (Bld) [#/Vol] 0.1 10*3/uL 0.0-0.45 [facility] Eosinophils/100 WBC Auto (Bl d)Ordered By: Gilbert Chauhan on 10-26-2022 Eosinophils/100 WBC (Bld) 1.6 % . [facility] Erythrocyte distribution wid th Auto (RBC) [Ratio]Ordered By: Gilbert Chauhan on 10-26-2022 Erythrocyte distribution width (RBC) [Ratio] 12.3 % 11.9-15.3 [facility] Glucose [Mass/volume] in Ser um or PlasmaOrdered By: Gilbert Chauhan on 10-26-2022 Glucose [Mass/Vol] 91 mg/dL 74-109 [facility] Comment on above: ADA recommended refe rence rangeRandom Glucose Reference Range is dependent on time and content of last meal. Glucose of more than 200 mg/dL in a nonstressed, ambulatory subject supports the diagnosis of Diabetes Mellitus. Hematocrit Auto (Bld) [Volum e fraction]Ordered By: Gilbert Chauhan on 10-26-2022 Hematocrit (Bld) [Volume fraction] 39.7 % 34.0-46.4 [facility] Hemoglobin [Mass/volume] in BloodOrdered By: Gilbert Chauhan on 03-17-2023 Hemoglobin (Bld) [Mass/Vol] 13.9 g/dL 11.8-15.4 [facility] - Chemistry and C hemistry - challengeOrdered By: Gilbert Chauhan on 10-26-2022 GFR/1.73 sq M.predicted MDRD (S/P/Bld) [Vol rate/Area] mL/min/{1.73_m2} [facility] Leukocytes [#/volume] correc ricardo for nucleated erythrocytes in Blood by Automated counOrdered By: Gilbert Chauhan on 10-26-2022 WBC corrected for nucl RBC Auto (Bld) [#/Vol] 7.3 10*3/uL 3.8-11.6 [facility] Lymphocytes Auto (Bld) [#/Vo l]Ordered By: Gilbert Chauhan on 10-26-2022 Lymphocytes (Bld) [#/Vol] 1.5 10*3/uL 1.00-4.8 [facility] Lymphocytes/100 WBC Auto (Bl d)Ordered By: Gilbert Chauhan on 10-26-2022 Lymphocytes/100 WBC (Bld) 20.0 % . [facility] MCH Auto (RBC) [Entitic mass ]Ordered By: Gilbert Chauhan on 10-26-2022 MCH (RBC) [Entitic mass] 30.9 pg 24.7-34.3 [facility] MCHC Auto (RBC) [Mass/Vol]Or dered By: Gilbert Chauhan on 10-26-2022 MCHC (RBC) [Mass/Vol] 35.1 g/dL 32.0-35.0 [facility] MCV Auto (RBC) [Entitic vol] Ordered By: Gilbert Chauhan on 10-26-2022 MCV (RBC) [Entitic vol] 88.2 fL 80-100 [facility] Monocytes Auto (Bld) [#/Vol] Ordered By: Gilbert Chauhan on 10-26-2022 Monocytes (Bld) [#/Vol] 0.6 10*3/uL 0.0-0.8 [facility] Monocytes/100 WBC Auto (Bld) Ordered By: Gilbert Chauhan on 10-26-2022 Monocytes/100 WBC (Bld) 7.6 % . [facility] Neutrophils Auto (Bld) [#/Vo l]Ordered By: Gilbert Chauhan on 10-26-2022 Neutrophils (Bld) [#/Vol] 5.1 10*3/uL 1.8-7.7 [facility] Neutrophils/100 WBC Auto (Bl d)Ordered By: Gilbert Chauhan on 10-26-2022 Neutrophils/100 WBC (Bld) 70.0 % . [facility] No Panel InformationOrdered By: Gilbert Chauhan on 10-26-2022 Pharmacy Creatinine Clearance (Chem N/A [facility] Nucleated erythrocytes [Pres ence] in Blood by Automated countOrdered By: Gilbert Chauhan on 10-26-2022 Nucleated RBC Auto Ql (Bld) 0.3 /100{WBC} 0-0.5 [facility] Platelet mean volume Auto (B ld) [Entitic vol]Ordered By: Gilbert Chauhan on 10-26-2022 Platelet mean volume (Bld) [Entitic vol] 9.7 fL 6.3-10.7 [facility] Platelets Auto (Bld) [#/Vol] Ordered By: Gilbert Chauhan on 10-26-2022 Platelets (Bld) [#/Vol] 188 10*3/uL 150-450 [facility] Potassium [Moles/volume] in Serum or PlasmaOrdered By: Gilbert Chauhan on 10-26-2022 Potassium [Moles/Vol] 3.9 mmol/L 3.5-5.1 [facility] RBC Auto (Bld) [#/Vol]Ordere d By: Gilbert Chauhan on 10-26-2022 RBC (Bld) [#/Vol] 4.50 10*6/uL 3.60-5.00 [facility] Serum or plasma anion gap de terminationOrdered By: Gilbert Chauhan on 10-26-2022 Anion gap [Moles/Vol] 12.5 mmol/L 6.0-15.0 [facility] Sodium [Moles/volume] in Ser um or PlasmaOrdered By: Gilbert Chauhan on 10-26-2022 Sodium [Moles/Vol] 140 mmol/L 136-145 [facility] Urea nitrogen [Mass/volume] in Serum or PlasmaOrdered By: Gilbert Chauhan on 10-26-2022 Urea nitrogen [Mass/Vol] 15 mg/dL 7 [facility] WBC Auto (Bld) [#/Vol]Ordere d By: Gilbert Chauhan on 10-26-2022 WBC (Bld) [#/Vol] 7.3 10*3/uL 3.8-11.6 [facility] XR chest 2V*on 10-26-2022 XR chest 2V* [facility] [place] [address] [place] [address] XRay Report Signed Patient: Alejandra Licona MR#: [id number] : 1990 Acct:[id number] Age/Sex: 32 / F ADM Date: 10/26/22 Loc: XD Room: [facility] Attending Dr: Gilbert Chauhan DPAngely Copies to: Gilbert Chauhan DPM Ordering Provider: Gilbert Chauhan DPM Date of Service: 10/26/22 XR/XR chest 2V*: surgery;Preprocedur al examination Chest 2 views CLINICAL HISTORY: Preop chest for ankle surgery. COMPARISON: None FINDINGS: Heart normal size. Lungs are clear. No free air. XR/XR chest 2V* IMPRESSION: NO ACUTE CARDIOPULMONARY ABNORMALITY. Impression dictated by: Waylon Lares Jr., D.OChani10/26/2022 5:47 PM Dictation Location: [place] [address] Transcribed By: [facility] 10/26/221746 Dictated By: Waylon Lares Jr, DO 10/26/221746 Signed By: 10/26/221746 Normal [facility] PREG HCG QUALon 10-09-2022 , QUAL Negative Normal NEGATIVE [facility] Comment on above: Performed By: #### P REG #### [facility] [address] [place] [address] HEAD WO CONon [...] by: DEANN THOMASON Date: 2022-09-21 14:32 Normal [facility] XR ankle LT min 3V*on 2022 XR ankle LT min 3V* [facility] [place] [address] [place] [address] XRay Report Signed Patient: Alejandra Licona MR#: [id number] : 1990 Acct:[id number] Age/Sex: 31 / F ADM Date: 08/23/22 Loc: XDUCLY Room: [facility] Attending Dr: Marla Winslow APRN Copies to: Marla Winslow APRN Ordering Provider: Marla Winslow APRN Date of Service: 08/23/22 XR/XR ankle LT min 3V*: LEFT ANKLE INJURY 3views LEFTankle COMPARISON:None HISTORY: LEFT ankle injury No fracture, dislocation or focal soft tissue abnormality seen. XR/XR ankle LT min 3V* IMPRESSION: No acute findings. Impression dictated by: Carrington Flores M.D.08/23/2022 2:20 PM Dictation Location: [place] [address] Transcribed By: [facility] 08/23/22 1420 Dictated By: Carrington Flores DO 08/23/22 1345 Signed By: 08/23/22 1420 Normal [facility] PREG HCG QUALon 08-21-2022 , QUAL Negative Normal NEGATIVE [facility] Comment on above: Performed By: #### S EDR #### [facility] [address] [place] [address] Dr. Niurka Blount CMV AB IGMon 07-21-2022 Cytomegalovirus (CMV) Ab, IgM <30.0 Normal 0.0-29.9 [facility] Comment on above: Result Comment: Nega tive <30.0 Equivocal 30.0 - 34.9 Positive >34.9 A positive result is generally indicative of acute infection, reactivation or persistent IgM production. Performed By: #### C MVM #### [facility] [address] [place] [address] Dr. Niurka Blount CMV AB, IGGon 07-21-2022 Cytomegalovirus (CMV) Ab, IgG <0.60 Normal 0.00-0.59 [facility] Comment on above: Result Comment: Nega tive <0.60 Equivocal 0.60 - 0.69 Positive >0.69 Performed By: #### C MVIGG #### [facility] [address] [place] [address] Dr. Niurka Blount CBC AUTO DIFFon 07-17-2022 BASO # 0.0 103/ul Normal 0.0-0.1 [facility] Comment on above: Performed By: #### S EDR #### [facility] [address] [place] [address] Dr. Niurka Blount Basophils/100 WBC (Bld) 0.4 % Normal 0.2-2.0 [facility] Comment on above: Performed By: #### S EDR #### [facility] [address] [place] [address] Dr. Niurka Blount EO # 0.0 103/ul Normal 0.0-0.7 [facility] Comment on above: Performed By: #### S EDR #### [facility] [address] [place] [address] Dr. Niurka Blount Eosinophils/100 WBC (Bld) 0.0 % Critically low 0.9-7.0 [facility] Comment on above: Performed By: #### S EDR #### [facility] [address] [place] [address] Dr. Niurka Blount Erythrocyte distribution width (RBC) [Ratio] 11.4 % Normal 11.0-15.0 [facility] Comment on above: Performed By: #### S EDR #### [facility] [address] [place] [address] Dr. Niurka Blount Hematocrit (Bld) [Volume fraction] 40.2 % Normal 36.0-48.0 [facility] Comment on above: Performed By: #### S EDR #### [facility] [address] [place] [address] Dr. Niurka Blount Hemoglobin (Bld) [Mass/Vol] 14.5 g/dL Normal 12.0-16.0 [facility] Comment on above: Performed By: #### S EDR #### [facility] [address] [place] [address] Dr. Niurka Blount IG # 0.08 10e3/ul Critically high 0.00-0.03 [facility] Comment on above: Performed By: #### S EDR #### [facility] [address] [place] [address] Dr. Niurka Blount IG % 0.8 % Critically high 0.0-0.5 [facility] Comment on above: Performed By: #### S EDR #### [facility] [address] [place] [address] Dr. Niurka Blount LYMPH # 1.3 103/ul Normal 1.2-3.8 [facility] Comment on above: Performed By: #### S EDR #### [facility] [address] [place] [address] Dr. Niurka Blount Lymphocytes/100 WBC (Bld) 12.0 % Critically low 20.5-60.0 [facility] Comment on above: Performed By: #### S EDR #### [facility] [address] [place] [address] Dr. Niurka Blount MANUAL DIFF REQ NO Normal [facility] Comment on above: Performed By: #### S EDR #### [facility] [address] [place] [address] Dr. Niurka Blount MCH (RBC) [Entitic mass] 30.5 pg Normal 26.7-34.0 [facility] Comment on above: Performed By: #### S EDR #### [facility] [address] [place] [address] [address] Niurka Blount MCHC (RBC) [Mass/Vol] 36.1 g/dL Critically high 29.9-35.2 [facility] Comment on above: Performed By: #### S EDR #### [facility] [address] [place] [address] Dr. Niurka Blount MCV (RBC) [Entitic vol] 84.6 fL Normal 81.0-99.0 [facility] Comment on above: Performed By: #### S EDR #### [facility] [address] [place] [address] Dr. Niurka Blount MONO # 0.6 103/ul Normal 0.3-0.8 [facility] Comment on above: Performed By: #### S EDR #### [facility] [address] [place] [address] Dr. Niurka Blount Monocytes/100 WBC (Bld) 5.6 % Normal 1.7-12.0 [facility] Comment on above: Performed By: #### S EDR #### [facility] [address] [place] [address] Dr. Niurka Blount NEUT # 8.5 103/ul Critically high 1.4-6.5 [facility] Comment on above: Performed By: #### S EDR #### [facility] [address] [place] [address] Dr. Niurka Blount Neutrophils/100 WBC (Bld) 81.2 % Critically high 43.0-75.0 [facility] Comment on above: Performed By: #### S EDR #### [facility] [address] [place] [address] Dr. Niurka Blount Platelet mean volume (Bld) [Entitic vol] 10.6 fL Normal 9.5-13.5 [facility] Comment on above: Performed By: #### S EDR #### [facility] [address] [place] [address] Dr. Niurka Blount PLT 277 103/ul Normal 150-450 [facility] Comment on above: Performed By: #### S EDR #### [facility] [address] [place] [address] Dr. Niurka Blount RBC 4.75 106/ul Normal 4.20-5.40 [facility] Comment on above: Performed By: #### S EDR #### [facility] [address] [place] [address] Dr. Niurka Blount WBC 10.5 103/ul Normal 4.0-11.0 [facility] Comment on above: Performed By: #### S EDR #### [facility] [address] [place] [address] Dr. Niurka Blount CRPon 07-17-2022 CRP [Mass/Vol] mg/L Normal <=1.0 [facility] Comment on above: Performed By: #### C MVM #### [facility] [address] [place] [address] ABD/PELV W CONon [...] VANNA GARLAND Date: 2022-07-17 18:[address] [facility] ER URINE PROFILEon 2 Bilirubin Ql (U) Negative Normal NEGATIVE [facility] Comment on above: Performed By: #### E RUR #### [facility] [address] [place] [address] Dr. Niurka Blount Clarity (U) CLEAR Normal CLEAR [facility] Comment on above: Performed By: #### E RUR #### [facility] [address] [place] [address] Dr. Niurka Blount Color (U) LT. YELLOW Normal YELLOW [facility] Comment on above: Performed By: #### E RUR #### [facility] [address] [place] [address] Dr. Niurka PARRISH A micrscopic examination will be performed if indicated. Normal [facility] Comment on above: Performed By: #### E RUR #### [facility] [address] [place] [address] Dr. Niurka Blount Glucose Ql (U) Negative Normal NEGATIVE [facility] Comment on above: Performed By: #### E RUR #### [facility] [address] [place] [address] Dr. Niurka Blount Hemoglobin Ql (U) Negative Normal NEGATIVE [facility] Comment on above: Performed By: #### E RUR #### [facility] [address] [place] [address] Dr. Niurka Blount Ketones Ql (U) Negative Normal NEGATIVE [facility] Comment on above: Performed By: #### E RUR #### [facility] [address] [place] [address] Dr. Niurka Blount LEUKOCYTES Negative Normal NEGATIVE [facility] Comment on above: Performed By: #### E RUR #### [facility] [address] [place] [address] Dr. Niurka Blount Nitrite Ql (U) Negative Normal NEGATIVE [facility] Comment on above: Performed By: #### E RUR #### [facility] [address] [place] [address] Dr. Niurka Blount pH (U) 6.0 [pH] Normal 5-9 [facility] Comment on above: Performed By: #### E RUR #### [facility] [address] [place] [address] Dr. Niurka Blount SPEC GRAVITY 1.010 Normal 1.005-<=1.025 [facility] Comment on above: Performed By: #### E RUR #### [facility] [address] [place] [address] Dr. Niurka Blount UA PROTEIN Negative Normal NEGATIVE/ [facility] Comment on above: Performed By: #### E RUR #### [facility] [address] [place] [address] Dr. Niurka Blount UR MICRO IND NOT INDICATED Normal [facility] Comment on above: Performed By: #### E RUR #### [facility] [address] [place] [address] Dr. Niurka Blount Urobilinogen Qn (U) 0.2 {David'U}/dL Normal 0.2 - 1. 0 [facility] Comment on above: Performed By: #### E RUR #### [facility] [address] [place] [address] Dr. Niurka Blount LACTATE/LACTIC ACIDon 2021 Lactate [Moles/Vol] 1.6 mmol/L Normal 0.4-1.9 [facility] Comment on above: Performed By: #### E RUR #### [facility] [address] [address] [address] Niurka Blount LIPASEon 07-17-2022 Lipase [Catalytic activity/Vol] 105.0 U/L Normal 73.0-393.0 [facility] Comment on above: Performed By: #### C MVM #### [facility] [address] [place] [address] Dr. Niurka Blount PREG HCG QUALon 07-17-2022 , QUAL Negative Normal NEGATIVE [facility] Comment on above: Performed By: #### P REG #### [facility] [address] [place] [address] Dr. Niurka Blount PROF 14(COMP METB)on 022 Albumin [Mass/Vol] 4.4 g/dL Normal 3.4-5.0 [facility] Comment on above: Performed By: #### C MVM #### [facility] [address] [place] [address] Dr. Niurka Blount Albumin/Globulin [Mass ratio] 1.4 {ratio} Normal [facility] Comment on above: Performed By: #### C MVM #### [facility] [address] [place] [address] Dr. Niurka Blount ALP [Catalytic activity/Vol] 82 U/L Normal 46-116 [facility] Comment on above: Performed By: #### C MVM #### [facility] [address] [place] [address] Dr. Niurka Blount ALT [Catalytic activity/Vol] 16 U/L Normal 14-59 [facility] Comment on above: Performed By: #### C MVM #### [facility] [address] [place] [address] Dr. Niurka Blount Anion gap [Moles/Vol] 11.6 mmol/L Normal [facility] Comment on above: Performed By: #### C MVM #### [facility] [address] [place] [address] Dr. Niurka Blount AST [Catalytic activity/Vol] 7 U/L Critically low 15-37 [facility] Comment on above: Performed By: #### C MVM #### [facility] [address] [address] [address] Niurka Blount Bilirubin [Mass/Vol] 0.6 mg/dL Normal 0.2-1.0 [facility] Comment on above: Performed By: #### C MVM #### [facility] [address] [address] [address] Niurka Blount Calcium [Mass/Vol] 8.8 mg/dL Normal 8.5-10.1 [facility] Comment on above: Performed By: #### C MVM #### [facility] [address] [address] [address] Niurka Blount Chloride [Moles/Vol] 103 mmol/L Normal 98-107 [facility] Comment on above: Performed By: #### C MVM #### [facility] [address] [place] [address] Dr. Niurka Blount CO2 [Moles/Vol] 24.4 mmol/L Normal 21.0-32.0 [facility] Comment on above: Performed By: #### C MVM #### [facility] [address] [place] [address] Dr. Niurka Blount Creatinine [Mass/Vol] 0.67 mg/dL Normal 0.55-1.02 [facility] Comment on above: Performed By: #### C MVM #### [facility] [address] [place] [address] Dr. Niurka Blount EGFR-AF LIBYAN >60 Normal >=60 [facility] Comment on above: Performed By: #### C MVM #### [facility] [address] [address] [address] Niurka Blount EGFR-NON AF LIBYAN >60 Normal >=60 [facility] Comment on above: Performed By: #### C MVM #### [facility] [address] [place] [address] Dr. Niurka Blount Globulin (S) [Mass/Vol] 3.1 g/dL Normal [facility] Comment on above: Performed By: #### C MVM #### [facility] [address] [address] [address] Niurka Blount Glucose [Mass/Vol] 109 mg/dL Critically high 74-106 T [facility] Comment on above: Performed By: #### C MVM #### [facility] [address] [address] [address] Niurka Blount Potassium [Moles/Vol] 4.0 mmol/L Normal 3.5-5.1 [facility] Comment on above: Performed By: #### C MVM #### [facility] [address] [address] [address] Niurka Blount Protein [Mass/Vol] 7.5 g/dL Normal 6.4-8.2 [facility] Comment on above: Performed By: #### C MVM #### [facility] [address] [address] [address] Niurka Blount Sodium [Moles/Vol] 135 mmol/L Critically low 136-145 [facility] Comment on above: Performed By: #### C MVM #### [facility] [address] [place] [address] Dr. Niurka Blount Urea nitrogen [Mass/Vol] 8.0 mg/dL Normal 7.0-18.0 [facility] Comment on above: Performed By: #### C MVM #### [facility] [address] [address] [address] Niurak Blount Urea nitrogen/Creatinine [Mass ratio] 11.9 mg/mg Normal [facility] Comment on above: Performed By: #### C MVM #### [facility] [address] [place] [address] Dr. Niurka Blount SED RATE WESTERGRENon 2021 SED RATE 3 mm/hr Normal <=20 [facility] Comment on above: Performed By: #### S EDR #### [facility] [address] [place] [address] Dr. Niurka Blount CBC AUTO DIFFon 07-13-2022 BASO # 0.1 103/ul Normal 0.0-0.1 [facility] Comment on above: Performed By: #### S EDR #### [facility] [address] [place] [address] Dr. Niurka Blount Basophils/100 WBC (Bld) 0.7 % Normal 0.2-2.0 [facility] Comment on above: Performed By: #### S EDR #### [facility] [address] [place] [address] Dr. Niurka Bolunt EO # 0.1 103/ul Normal 0.0-0.7 [facility] Comment on above: Performed By: #### S EDR #### [facility] [address] [place] [address] Dr. Niurka Blount Eosinophils/100 WBC (Bld) 1.3 % Normal 0.9-7.0 [facility] Comment on above: Performed By: #### S EDR #### [facility] [address] [place] [address] Dr. Niurka Blount Erythrocyte distribution width (RBC) [Ratio] 11.3 % Normal 11.0-15.0 [facility] Comment on above: Performed By: #### S EDR #### [facility] [address] [place] [address] Dr. Niruka Blount Hematocrit (Bld) [Volume fraction] 40.4 % Normal 36.0-48.0 [facility] Comment on above: Performed By: #### S EDR #### [facility] [address] [place] [address] Dr. Niurka Blount Hemoglobin (Bld) [Mass/Vol] 14.2 g/dL Normal 12.0-16.0 [facility] Comment on above: Performed By: #### S EDR #### [facility] [address] [place] [address] Dr. Niurka Blount IG # 0.02 10e3/ul Normal 0.00-0.03 [facility] Comment on above: Performed By: #### S EDR #### [facility] [address] [place] [address] Dr. Niurka Blount IG % 0.2 % Normal 0.0-0.5 [facility] Comment on above: Performed By: #### S EDR #### [facility] [address] [address] [address] Niurka Blount LYMPH # 1.9 103/ul Normal 1.2-3.8 [facility] Comment on above: Performed By: #### S EDR #### [facility] [address] [address] [address] Niurka Blount Lymphocytes/100 WBC (Bld) 22.1 % Normal 20.5-60.0 [facility] Comment on above: Performed By: #### S EDR #### [facility] [address] [address] [address] Niurka Blount MANUAL DIFF REQ NO Normal [facility] Comment on above: Performed By: #### S EDR #### [facility] [address] [place] [address] Dr. Niurka Blount MCH (RBC) [Entitic mass] 30.0 pg Normal 26.7-34.0 [facility] Comment on above: Performed By: #### S EDR #### [facility] [address] [place] [address] Dr. Niurka Blount MCHC (RBC) [Mass/Vol] 35.1 g/dL Normal 29.9-35.2 [facility] Comment on above: Performed By: #### S EDR #### [facility] [address] [place] [address] Dr. Niurka Blount MCV (RBC) [Entitic vol] 85.4 fL Normal 81.0-99.0 [facility] Comment on above: Performed By: #### S EDR #### [facility] [address] [place] [address] Dr. Niurka Blount MONO # 0.6 103/ul Normal 0.3-0.8 [facility] Comment on above: Performed By: #### S EDR #### [facility] [address] [place] [address] Dr. Niurka Blount Monocytes/100 WBC (Bld) 6.8 % Normal 1.7-12.0 [facility] Comment on above: Performed By: #### S EDR #### [facility] [address] [address] [address] Niurka Blount NEUT # 6.0 103/ul Normal 1.4-6.5 [facility] Comment on above: Performed By: #### S EDR #### [facility] [address] [place] [address] Dr. Niurka Blount Neutrophils/100 WBC (Bld) 68.9 % Normal 43.0-75.0 [facility] Comment on above: Performed By: #### S EDR #### [facility] [address] [place] [address] Dr. Niurka Blount Platelet mean volume (Bld) [Entitic vol] 10.7 fL Normal 9.5-13.5 [facility] Comment on above: Performed By: #### S EDR #### [facility] [address] [place] [address] Dr. Niurka Blount PLT 247 103/ul Normal 150-450 [facility] Comment on above: Performed By: #### S EDR #### [facility] [address] [place] [address] Dr. Niurka Blount RBC 4.73 106/ul Normal 4.20-5.[address] [facility] Comment on above: Performed By: #### S EDR #### [facility] [address] [place] [address] Dr. Niurka Blount WBC 8.7 103/ul Normal 4.0-11.0 [facility] Comment on above: Performed By: #### S EDR #### [facility] [address] [place] [address] Dr. Niurka Blount FREE T3on 07-13-2022 FREE T3 2.53 pg/mlL Normal 2.18-3.98 [facility] Comment on above: Performed By: #### E RUR #### [facility] [address] [place] [address] Dr. Niurka Blount PROF 14(COMP METB)on 022 Albumin [Mass/Vol] 4.3 g/dL Normal 3.4-5.0 [facility] Comment on above: Performed By: #### E RUR #### [facility] [address] [place] [address] Dr. Niurka Blount Albumin/Globulin [Mass ratio] 1.5 {ratio} Normal [facility] Comment on above: Performed By: #### E RUR #### [facility] [address] [address] [address] Niurka Blount ALP [Catalytic activity/Vol] 79 U/L Normal 46-116 [facility] Comment on above: Performed By: #### E RUR #### [facility] [address] [place] [address] Dr. Niurka Blount ALT [Catalytic activity/Vol] 14 U/L Normal 14-59 [facility] Comment on above: Performed By: #### E RUR #### [facility] [address] [place] [address] Dr. Niurka Blount Anion gap [Moles/Vol] 11.5 mmol/L Normal [facility] Comment on above: Performed By: #### E RUR #### [facility] [address] [place] [address] Dr. Niurka Blount AST [Catalytic activity/Vol] 10 U/L Critically low 15-37 [facility] Comment on above: Performed By: #### E RUR #### [facility] [address] [place] [address] Dr. Niurka Blount Bilirubin [Mass/Vol] 0.4 mg/dL Normal 0.2-1.0 [facility] Comment on above: Performed By: #### E RUR #### [facility] [address] [place] [address] Dr. Niurka Blount Calcium [Mass/Vol] 8.8 mg/dL Normal 8.5-10.1 [facility] Comment on above: Performed By: #### E RUR #### [facility] [address] [place] [address] Dr. Niurka Blount Chloride [Moles/Vol] 103 mmol/L Normal 98-107 [facility] Comment on above: Performed By: #### E RUR #### [facility] [address] [address] [address] Niurka Blount CO2 [Moles/Vol] 26.2 mmol/L Normal 21.0-32.0 [facility] Comment on above: Performed By: #### E RUR #### [facility] [address] [place] [address] Dr. Niurka Blount Creatinine [Mass/Vol] 0.71 mg/dL Normal 0.55-1.02 [facility] Comment on above: Performed By: #### E RUR #### [facility] [address] [place] [address] Dr. Niurka Blount EGFR-AF LIBYAN >60 Normal >=60 [facility] Comment on above: Performed By: #### E RUR #### [facility] [address] [place] [address] Dr. Niurka Blount EGFR-NON AF LIBYAN >60 Normal >=60 [facility] Comment on above: Performed By: #### E RUR #### [facility] [address] [place] [address] Dr. Niurka Blount Globulin (S) [Mass/Vol] 2.9 g/dL Normal [facility] Comment on above: Performed By: #### E RUR #### [facility] [address] [place] [address] Dr. Niurka Blount Glucose [Mass/Vol] 119 mg/dL Critically high 74-106 [facility] Comment on above: Performed By: #### E RUR #### [facility] [address] [place] [address] Dr. Niurka Blount Potassium [Moles/Vol] 3.7 mmol/L Normal 3.5-5.1 [facility] Comment on above: Performed By: #### E RUR #### [facility] [address] [place] [address] Dr. Niurka Blount Protein [Mass/Vol] 7.2 g/dL Normal 6.4-8.2 [facility] Comment on above: Performed By: #### E RUR #### [facility] [address] [address] [address] Niurka Blount Sodium [Moles/Vol] 137 mmol/L Normal 136-145 [facility] Comment on above: Performed By: #### E RUR #### [facility] [address] [place] [address] Dr. Niurka Blount Urea nitrogen [Mass/Vol] 11.0 mg/dL Normal 7.0-18.0 [facility] Comment on above: Performed By: #### E RUR #### [facility] [address] [place] [address] Dr. Niurka Blount Urea nitrogen/Creatinine [Mass ratio] 15.5 mg/mg Normal [facility] Comment on above: Performed By: #### E RUR #### [facility] [address] [place] [address] Dr. Niurka Blount TSHon 07-13-2022 TSH 0.543 uIU/mL Normal 0.358-3.740 [facility] Comment on above: Performed By: #### E RUR #### [facility] [address] [place] [address] Dr. Niurka Blount QUANTIFERON TB GOLD PLUSon 0 05-01-2022 QuantiFERON Criteria Comment [facility] Comment on above: Result Comment: Morris tiFERON-TB [...] test. Performed By: #### Q NTTB #### [facility] [address] [place] [address] Dr. Niurka Blount QuantiFERON Incubation Incubation performed. Normal [facility] Comment on above: Performed By: #### Q NTTB #### [facility] [address] [place] [address] Dr. Niurka Blount QuantiFERON Mitogen Value >10.00 Normal [facility] Comment on above: Performed By: #### Q NTTB #### [facility] [address] [place] [address] Dr. Niurka Blount QuantiFERON Nil Value 0.02 IU/mL Normal [facility] Comment on above: Performed By: #### Q NTTB #### [facility] [address] [place] [address] Dr. Niurka Blount QuantiFERON TB1 Ag Value 0.02 IU/mL Normal [facility] Comment on above: Performed By: #### Q NTTB #### [facility] [address] [place] [address] Dr. Niurka Blount QuantiFERON TB2 Ag Value 0.02 IU/mL Normal [facility] Comment on above: Performed By: #### Q NTTB #### [facility] [address] [place] [address] Dr. Niurka Blount QuantiFERON-TB Gold Plus Negative Normal Negative [facility] Comment on above: Result Comment: No r esponse to M tuberculosis antigens detected. Infection with M tuberculosis is unlikely, but high risk individuals should be considered for additional testing (ATS/IDSA/CDC Clinical Practice Guidelines, 2017). The reference range is an Antigen minus Nil result of <0.35 IU/mL. Chemiluminescence immunoassay methodology Performed By: #### Q NTTB #### [facility] [address] [place] [address] Dr. Niurka Blount HEP B COREon 04-29-2022 Hep B Core Ab, Tot Negative Normal Negative [facility] Comment on above: Performed By: #### E RUR #### [facility] [address] [place] [address] Dr. Niurka Blount HEP B SURFACE ANTIGEN SCREEN on 04-29-2022 HBsAg Screen Negative Normal Negative [facility] Comment on above: Performed By: #### E RUR #### [facility] [address] [place] [address] Dr. Niurka Blount CBC AUTO DIFFon 04-27-2022 BASO # 0.0 103/ul Normal 0.0-0.1 [facility] Comment on above: Performed By: #### E RUR #### [facility] [address] [place], [place] [id number] Dr. Niurka Blount Basophils/100 WBC (Bld) 0.5 % Normal 0.2-2.0 [facility] Comment on above: Performed By: #### E RUR #### [facility] [address] [place] [address] Dr. Niurka Blount EO # 0.1 103/ul Normal 0.0-0.7 [facility] Comment on above: Performed By: #### E RUR #### [facility] [address] [place] [address] Dr. Niurka Blount Eosinophils/100 WBC (Bld) 1.5 % Normal 0.9-7.0 [facility] Comment on above: Performed By: #### E RUR #### [facility] [address] [place] [address] Dr. Niurka Blount Erythrocyte distribution width (RBC) [Ratio] 11.9 % Normal 11.0-15.0 [facility] Comment on above: Performed By: #### E RUR #### [facility] [address] [place] [address] Dr. Niurka Blount Hematocrit (Bld) [Volume fraction] 39.2 % Normal 36.0-48.0 [facility] Comment on above: Performed By: #### E RUR #### [facility] [address] [place] [address] Dr. Niurka Blount Hemoglobin (Bld) [Mass/Vol] 13.9 g/dL Normal 12.0-16.0 [facility] Comment on above: Performed By: #### E RUR #### [facility] [address] [place] [address] Dr. Niurka Blount IG # 0.03 10e3/ul Normal 0.00-0.[address] [facility] Comment on above: Performed By: #### E RUR #### [facility] [address] [place] [address] Dr. Niurka Blount IG % 0.4 % Normal 0.0-0.5 [facility] Comment on above: Performed By: #### E RUR #### [facility] [address] [address] [address] Niurka Blount LYMPH # 2.2 103/ul Normal 1.2-3.8 [facility] Comment on above: Performed By: #### E RUR #### [facility] [address] [place] [address] Dr. Niurka Blount Lymphocytes/100 WBC (Bld) 26.3 % Normal 20.5-60.0 [facility] Comment on above: Performed By: #### E RUR #### [facility] [address] [place] [address] Dr. Niurka Blount MANUAL DIFF REQ NO Normal [facility] Comment on above: Performed By: #### E RUR #### [facility] [address] [place] [address] Dr. Niurka Blount MCH (RBC) [Entitic mass] 30.5 pg Normal 26.7-34.0 [facility] Comment on above: Performed By: #### E RUR #### [facility] [address] [place] [address] Dr. Niurka Blount MCHC (RBC) [Mass/Vol] 35.5 g/dL Critically high 29.9-35.2 [facility] Comment on above: Performed By: #### E RUR #### [facility] [address] [place] [address] Dr. Niurka Blount MCV (RBC) [Entitic vol] 86.2 fL Normal 81.0-99.0 [facility] Comment on above: Performed By: #### E RUR #### [facility] [address] [place] [address] Dr. Niurka Blount MONO # 0.6 103/ul Normal 0.3-0.8 [facility] Comment on above: Performed By: #### E RUR #### [facility] [address] [place] [address] Dr. Niurka Blount Monocytes/100 WBC (Bld) 7.2 % Normal 1.7-12.0 [facility] Comment on above: Performed By: #### E RUR #### [facility] [address] [place] [address] Dr. Niurka Blount NEUT # 5.4 103/ul Normal 1.4-6.[address] [facility] Comment on above: Performed By: #### E RUR #### [facility] [address] [place] [address] Dr. Niurka Blount Neutrophils/100 WBC (Bld) 64.1 % Normal 43.0-75.[address] [facility] Comment on above: Performed By: #### E RUR #### [facility] [address] [place] [address] Dr. Niurka Blount Platelet mean volume (Bld) [Entitic vol] 10.4 fL Normal 9.5-13.[address] [facility] Comment on above: Performed By: #### E RUR #### [facility] [address] [place] [address] Dr. Niurka Blount PLT 235 103/ul Normal 150-[address] [facility] Comment on above: Performed By: #### E RUR #### [facility] [address] [place] [address] Dr. Niurka Blount RBC 4.55 106/ul Normal 4.20-5.40 [facility] Comment on above: Performed By: #### E RUR #### [facility] [address] [place] [address] Dr. Niurka Blount WBC 8.5 103/ul Normal 4.0-11.0 [facility] Comment on above: Performed By: #### E RUR #### [facility] [address] [place] [address] Dr. Niurka Blount CRPon 04-27-2022 CRP [Mass/Vol] mg/L Normal <=1.0 [facility] Comment on above: Performed By: #### C MP, CRP #### [facility] [address] [place] [address] Dr. Niurka Blount PROF 14(COMP METB)on 022 Albumin [Mass/Vol] 4.2 g/dL Normal 3.4-5.0 [facility] Comment on above: Performed By: #### C MP, CRP #### [facility] [address] [address] [address] Niurka Blount Albumin/Globulin [Mass ratio] 1.4 {ratio} Normal [facility] Comment on above: Performed By: #### C MP, CRP #### [facility] [address] [address] [address] Niurka Blount ALP [Catalytic activity/Vol] 80 U/L Normal 46-116 [facility] Comment on above: Performed By: #### C MP, CRP #### [facility] [address] [address] [address] Niurka Blount ALT [Catalytic activity/Vol] 26 U/L Normal 14-59 [facility] Comment on above: Performed By: #### C MP, CRP #### [facility] [address] [address] [address] Niurka Blount Anion gap [Moles/Vol] 11.4 mmol/L Normal [facility] Comment on above: Performed By: #### C MP, CRP #### [facility] [address] [address] [address] Niurka Blount AST [Catalytic activity/Vol] 13 U/L Critically low 15-37 [facility] Comment on above: Performed By: #### C MP, CRP #### [facility] [address] [address] [address] Niurka Blount Bilirubin [Mass/Vol] 0.4 mg/dL Normal 0.2-1.0 [facility] Comment on above: Performed By: #### C MP, CRP #### [facility] [address] [address] [address] Niurka Blount Calcium [Mass/Vol] 8.8 mg/dL Normal 8.5-10.1 [facility] Comment on above: Performed By: #### C MP, CRP #### [facility] [address] [address] [address] Niurka Blount Chloride [Moles/Vol] 106 mmol/L Normal 98-107 [facility] Comment on above: Performed By: #### C MP, CRP #### [facility] [address] [address] [address] Niurka Blount CO2 [Moles/Vol] 26.5 mmol/L Normal 21.0-32.0 [facility] Comment on above: Performed By: #### C MP, CRP #### [facility] [address] [address] [address] Niurka Blount Creatinine [Mass/Vol] 0.80 mg/dL Normal 0.55-1.02 [facility] Comment on above: Performed By: #### C MP, CRP #### [facility] [address] [address] [address] Niurka Blount EGFR-AF LIBYAN >60 Normal >=60 [facility] Comment on above: Performed By: #### C MP, CRP #### [facility] [address] [address] [address] Niurka Blount EGFR-NON AF LIBYAN >60 Normal >=60 [facility] Comment on above: Performed By: #### C MP, CRP #### [facility] [address] [place] [address] Dr. Niurka Blount Globulin (S) [Mass/Vol] 3.0 g/dL Normal [facility] Comment on above: Performed By: #### C MP, CRP #### [facility] [address] [address] [address] Niurka Blount Glucose [Mass/Vol] 113 mg/dL Critically high 74-106 [facility] Comment on above: Performed By: #### C MP, CRP #### [facility] [address] [address] [address] Niruka Blount Potassium [Moles/Vol] 3.9 mmol/L Normal 3.5-5.1 [facility] Comment on above: Performed By: #### C MP, CRP #### [facility] [address] [address] [address] Niurka Blount Protein [Mass/Vol] 7.2 g/dL Normal 6.4-8.2 [facility] Comment on above: Performed By: #### C MP, CRP #### [facility] [address] [address] [address] Niurka Blount Sodium [Moles/Vol] 140 mmol/L Normal 136-145 [facility] Comment on above: Performed By: #### C MP, CRP #### [facility] [address] [address] [address] Niurka Blount Urea nitrogen [Mass/Vol] 9.0 mg/dL Normal 7.0-18.0 [facility] Comment on above: Performed By: #### C MP, CRP #### [facility] [address] [address] [address] Niurka Blount Urea nitrogen/Creatinine [Mass ratio] 11.2 mg/mg Normal [facility] Comment on above: Performed By: #### C MP, CRP #### [facility] [address] [address] [address] Niurka Blount SED RATE [facility] 2021 SED RATE 2 mm/hr Normal <=20 [facility] Comment on above: Performed By: #### E RUR #### [facility] [address] [address] [address] Niurka Blount MRI CSPINE WO CONon [...] by: DEANN THOMASON Date: 2022-04-06 11:21 Normal [facility] XR CSPINE MIN 4 VIEWSon 01-12 [...] ISABEL CHAVEZ Date: 2022-02-08 17:[address] [facility] Albumin [Mass/volume] in Ser um or PlasmaOrdered By: Piter Maharaj on 09-18-2021 Albumin [Mass/Vol] 4.3 g/dL 3.2-5.5 [facility] Basophils Auto (Bld) [#/Vol] Ordered By: Piter Maharaj on 09-18-2021 Basophils (Bld) [#/Vol] 0.0 10*3/uL 0.0-0.2 [facility] Basophils/100 WBC Auto (Bld) Ordered By: Piter Maharaj on 09-18-2021 Basophils/100 WBC (Bld) 0.7 % . [facility] C reactive protein [Mass/vol ume] in Serum or PlasmaOrdered By: Piter Maharaj on 09-18-2021 CRP [Mass/Vol] 1.1 mg/dL 0.0-1.0 [facility] Creatinine and Glomerular fi ltration rate.predicted panel (S/P/Bld)Ordered By: Piter Maharaj on 09-18-2021 Creatinine [Mass/Vol] 0.73 mg/dL 0.44-1.03 [facility] Eosinophils Auto (Bld) [#/Vo l]Ordered By: Piter Maharaj on 09-18-2021 Eosinophils (Bld) [#/Vol] 0.1 10*3/uL 0.0-0.45 [facility] Eosinophils/100 WBC Auto (Bl d)Ordered By: Piter Maharaj on 09-18-2021 Eosinophils/100 WBC (Bld) 1.9 % . [facility] Erythrocyte distribution wid th Auto (RBC) [Ratio]Ordered By: Piter Maharaj on 09-18-2021 Erythrocyte distribution width (RBC) [Ratio] 12.0 % 11.9-15.3 [facility] Erythrocyte sedimentation ra te by Photometric methodOrdered By: Piter Maharaj on 09-18-2021 ESR Photometric method (Bld) [Velocity] 3 mm/hr 0-19 [facility] Estimated glomerular filtrat ion rate (GFR) non- AmericanOrdered By: Piter Maharaj on 09-18-2021 GFR/1.73 sq M.predicted among non-blacks MDRD (S/P/Bld) [Vol rate/Area] > 60 mL/Min [facility] Globulin Calc (S) [Mass/Vol] Ordered By: Piter Maharaj on 09-18-2021 Globulin (S) [Mass/Vol] 2.2 g/dL [facility] Hematocrit Auto (Bld) [Volum e fraction]Ordered By: Piter Maharaj on 09-18-2021 Hematocrit (Bld) [Volume fraction] 42.2 % 34.0-46.4 [facility] Hemoglobin [Mass/volume] in BloodOrdered By: Piter Maharaj on 09-18-2021 Hemoglobin (Bld) [Mass/Vol] 14.6 g/dL 11.8-15.4 [facility] - Hematology and Cell countsOrdered By: Piter Maharaj on 09-18-2021 Nucleated RBC/100 WBC (Bld) [Ratio] 0.1 % 0-0.5 [facility] Leukocytes [#/volume] in Blo od by Automated countOrdered By: Piter Maharaj on 09-18-2021 WBC (Bld) [#/Vol] 6.6 10*3/uL 4.5-11.0 [facility] Lymphocytes Auto (Bld) [#/Vo l]Ordered By: Piter Maharaj on 09-18-2021 Lymphocytes (Bld) [#/Vol] 2.3 10*3/uL 1.00-4.8 [facility] Lymphocytes/100 WBC Auto (Bl d)Ordered By: Piter Maharaj on 09-18-2021 Lymphocytes/100 WBC (Bld) 34.0 % . [facility] MCH Auto (RBC) [Entitic mass ]Ordered By: Piter Maharaj on 09-18-2021 MCH (RBC) [Entitic mass] 30.0 pg 24.7-34.3 [facility] MCHC Auto (RBC) [Mass/Vol]Or dered By: Piter Maharaj on 09-18-2021 MCHC (RBC) [Mass/Vol] 34.6 g/dL 32.0-35.0 [facility] MCV Auto (RBC) [Entitic vol] Ordered By: Piter Maharaj on 09-18-2021 MCV (RBC) [Entitic vol] 86.6 fL 80-100 [facility] Monocytes Auto (Bld) [#/Vol] Ordered By: Piter Maharaj on 09-18-2021 Monocytes (Bld) [#/Vol] 0.5 10*3/uL 0.0-0.8 [facility] Monocytes/100 WBC Auto (Bld) Ordered By: Piter Maharaj on 09-18-2021 Monocytes/100 WBC (Bld) 8.2 % . [facility] Neutrophils Auto (Bld) [#/Vo l]Ordered By: Piter Maharaj on 09-18-2021 Neutrophils (Bld) [#/Vol] 3.7 10*3/uL 1.8-7.7 [facility] Neutrophils/100 WBC Auto (Bl d)Ordered By: Piter Maharaj on 09-18-2021 Neutrophils/100 WBC (Bld) 55.2 % . [facility] No Panel InformationOrdered By: Piter Maharaj on 09-18-2021 Estimated GFR () > 60 mL/Min [facility] Comment on above: GFR estimated refere nce range: According to KDOQI guidelines, <60 ml/min/1.73m2 is sufficient to diagnose a patient with chronic kidney disease. Pharmacy Creatinine Clearance (Chem 102.56 [facility] Platelet mean volume Auto (B ld) [Entitic vol]Ordered By: Piter Maharaj on 09-18-2021 Platelet mean volume (Bld) [Entitic vol] 8.8 fL 6.3-10.7 [facility] Platelets Auto (Bld) [#/Vol] Ordered By: Piter Maharaj on 09-18-2021 Platelets (Bld) [#/Vol] 222 10*3/uL 150-450 [facility] Protein [Mass/volume] in Ser um or PlasmaOrdered By: Piter Maharaj on 09-18-2021 Protein [Mass/Vol] 6.5 g/dL 6.1-7.9 [facility] RBC Auto (Bld) [#/Vol]Ordere d By: Piter Maharaj on 09-18-2021 RBC (Bld) [#/Vol] 4.87 10*6/uL 3.60-5.00 [facility] Serum or plasma alanine rodriguez otransferase measurement without P-5'-P (enzymatic activiOrdered By: Piter Maharaj on 09-18-2021 ALT No additional P-5'-P [Catalytic activity/Vol] 23 U/L 10-60 [facility] Serum or plasma albumin/glob ulin mass ratioOrdered By: Piter Maharaj on 09-18-2021 Albumin/Globulin [Mass ratio] 2.0 {ratio} [facility] Serum or plasma alkaline susan sphatase measurement (enzymatic activity/volume)Ordered By: Piter Maharaj on 09-18-2021 ALP [Catalytic activity/Vol] 84 U/L 32-92 [facility] Serum or plasma aspartate am inotransferase measurement (enzymatic activity/volume)Ordered By: Piter Maharaj on 09-18-2021 AST [Catalytic activity/Vol] 20 U/L 10-42 [facility] Serum or plasma calcium toni urement (mass/volume)Ordered By: Piter Maharaj on 09-18-2021 Calcium [Mass/Vol] 9.3 mg/dL 8.2-10.2 [facility] Serum or plasma chloride carina surement (moles/volume)Ordered By: Piter Maharaj on 09-18-2021 Chloride [Moles/Vol] 103 mmol/L 95-114 [facility] Serum or plasma glucose toni urement (mass/volume)Ordered By: Piter Maharaj on 09-18-2021 Glucose [Mass/Vol] 80 mg/dL 70-100 [facility] Comment on above: ADA recommended refe rence rangeRandom Glucose Reference Range is dependent on time and content of last meal. Glucose of more than 200 mg/dL in a nonstressed, ambulatory subject supports the diagnosis of Diabetes Mellitus. Serum or plasma potassium me asurement (moles/volume)Ordered By: Piter Maharaj on 09-18-2021 Potassium [Moles/Vol] 4.0 mmol/L 3.5-5.1 [facility] Serum or plasma sodium measu rement (moles/volume)Ordered By: Piter Maharaj on 09-18-2021 Sodium [Moles/Vol] 139 mmol/L 136-146 [facility] Serum or plasma total biliru bin measurement (mass/volume)Ordered By: Piter Maharaj on 09-18-2021 Bilirubin [Mass/Vol] 0.8 mg/dL 0.3-1.2 [facility] Serum or plasma total carbon dioxide measurement (moles/volume)Ordered By: Piter Maharaj on 09-18-2021 CO2 [Moles/Vol] 27.0 mmol/L 22.0-30.0 [facility] Serum or plasma urea nitroge n measurement (mass/volume)Ordered By: Piter Maharaj on 09-18-2021 Urea nitrogen [Mass/Vol] 14 mg/dL - [facility] ESR Westergren method (Bld) [Velocity]on 04-11-2020 ESR (Bld) [Velocity] 2 mm/h 0-32 [facility] Comment on above: Performed at: [facility] [address] [id number] Director: Gerry Martinez PhD, Phone: [phone] Laboratory - Hematology and Cell countson 04-11-2020 WBC (Bld) [#/Vol] 5.0 10*3/uL 4.5-11.0 [facility] Vital Signs Date Time Vital Sign Value Performing Clinician Facility 04-04-2023 10:40-0400 Body height 157.48 cm Dutch Pereyra Other [facility] Other 04-04-2023 10:40-0400 Body mass index (BMI) [Ratio] 23.41 kg/m2 Dutch Pereyra Other [facility] Other 04-04-2023 10:40-0400 Body weight 58.06 kg Dutch Pereyra Other [facility] Other 04-04-2023 10:40-0400 Diastolic blood pressure 66 mm[Hg] Dutch Pereyra Other [facility] Other 04-04-2023 10:40-0400 Systolic blood pressure 104 mm[Hg] Dutch Pereyra Other [facility] Other 03-12-2023 13:15-0400 Body height 157.48 cm Piter Maharaj Other [facility] Other 03-12-2023 13:15-0400 Body mass index (BMI) [Ratio] 24.32 kg/m2 Piter Maharaj Other [facility] Other 03-12-2023 13:15-0400 Body weight 60.33 kg Piter Maharaj Other [facility] Other 03-12-2023 13:15-0400 Diastolic blood pressure 80 mm[Hg] Piter Maharaj Other [facility] Other 03-12-2023 13:15-0400 Systolic blood pressure 119 mm[Hg] Piter Maharaj Other [facility] Other 09-11-2022 14:15-0500 Body height 157.48 cm Piter Maharaj Other [facility] Other 09-11-2022 14:15-0500 Body mass index (BMI) [Ratio] 28.16 kg/m2 Piter Maharaj Other [facility] Other 09-11-2022 14:15-0500 Body weight 69.85 kg Piter Maharaj Other [facility] Other 09-11-2022 14:15-0500 Diastolic blood pressure 71 mm[Hg] Piter Maharaj Other [facility] Other 09-11-2022 14:15-0500 Systolic blood pressure 100 mm[Hg] Piter Maharaj Other [facility] Other 07-25-2022 11:45-0500 Body height 157.48 cm Piter Maharaj Other [facility] Other 07-25-2022 11:45-0500 Body mass index (BMI) [Ratio] 27.43 kg/m2 Piter Maharaj Other [facility] Other 07-25-2022 11:45-0500 Body weight 68.04 kg Piter Maharaj Other [facility] Other 07-25-2022 11:45-0500 Diastolic blood pressure 94 mm[Hg] Piter Nicko Other [facility] Other 07-25-2022 11:45-0500 Systolic blood pressure 132 mm[Hg] Piter Lamasormack Other [facility] Other 06-25-2022 15:25-0500 Diastolic blood pressure 83 mm[Hg] II Stoney Giles Work Phone: [facility] 06-25-2022 15:25-0500 Heart rate 60 /min II Stoney Giles Work Phone: [facility] 06-25-2022 15:25-0500 Systolic blood pressure 137 mm[Hg] II Stoney Giles Work Phone: [facility] 05-29-2022 14:06-0400 Body temperature 97.7 [degF] II Stoney Giles Work Phone: [facility] 05-29-2022 14:06-0400 Respiratory rate 18 /min II Stoney Giles Work Phone: [facility] 05-29-2022 14:06-0400 SaO2% (BldA) [Mass fraction] 95 % II Stoney Giles Work Phone: [facility] 05-23-2022 11:45-0400 Body height 157.48 cm Piter Maharaj Other [facility] Other 05-23-2022 11:45-0400 Body mass index (BMI) [Ratio] 28.35 kg/m2 Piter Maharaj Other [facility] Other 05-23-2022 11:45-0400 Body weight 70.31 kg Piter Maharaj Other [facility] Other 04-25-2022 12:00-0400 Body height 157.48 cm Piter Altamiranoack Other [facility] Other 04-25-2022 12:00-0400 Body mass index (BMI) [Ratio] 28.16 kg/m2 Piter Maharaj Other [facility] Other 04-25-2022 12:00-0400 Body weight 69.85 kg Piter Altamiranoack Other [facility] Other 10-30-2021 14:48-0400 Body height 157.48 cm II Stoney Giles Work Phone: [facility] 10-30-2021 14:48-0400 Body mass index (BMI) [Ratio] 29.8 kg/m2 II Stoney Giles Work Phone: [facility] 10-30-2021 14:48-0400 Body weight 73.93 kg II Stoney Giles Work Phone: [facility] 07-24-2021 11:45-0500 Body height 157.48 cm Piter Altamiranoack Other [facility] Other 07-24-2021 11:45-0500 Body mass index (BMI) [Ratio] 29.26 kg/m2 Piter Altamiranoack Other [facility] Other 07-24-2021 11:45-0500 Body weight 72.58 kg Piter Maharaj Other [facility] Other Encounters Encounter Date Encounter Type Care Provider Facility Start: 09-11-2023 End: 09-11-2023 ambulatory NOAH HANSEN Not Available Start: 09-11-2023 End: 09-11-2023 ambulatory STONEY GILES Not Available Start: 08-16-2023 End: 08-16-2023 ambulatory JOHN SHUKLA Not Available Start: 07-18-2023 End: 07-18-2023 ambulatory JAVED LEVIN Not Available Start: 04-04-2023 End: 04-04-2023 ambulatory Dutch Hafsa Other [facility] Other Start: 04-04-2023 Office outpatient new 30 minutes Dutch Pereyra [facility] Neurosurgery Start: 04-03-2023 End: 04-03-2023 ambulatory Dutch Pereyra Facility:[facility] Start: 04-03-2023 End: 04-03-2023 Patient encounter procedure II Stoney Giles Work Phone: [facility] Work Phone: Start: 03-12-2023 End: 03-12-2023 ambulatory Piter Maharaj Other [place] [facility] Other Start: 03-12-2023 Office outpatient visit 15 minutes Piter Maharaj [facility] Gastroenterology Start: 01-01-[address] STONEY GILES Facilit y:[facility] Start: 12-18-2022 End: 12-19-2022 ambulatory CINTIA GOMIJUAN DANIEL . Facility:[facility] Start: 12-11-2022 End: 12-11-2022 ambulatory ISABELLA VAUGHN Facility:[facility] Start: 12-04-2022 End: 12-04-2022 ambulatory STONEY ASKEW Facility:[facility] Start: 11-07-2022 End: 11-08-2022 ambulatory Gilbert Chauhan Facility:[facility] Start: 10-26-2022 End: 10-26-2022 ambulatory Gilbert Chauhan Facility:[facility] Start: 10-26-2022 End: 10-26-2022 ambulatory LUZ Giles Work Phone: [facility] Work Phone: Start: 10-26-2022 End: 10-26-2022 Patient encounter procedure II Stoney Giles Work Phone: [facility] [place] Work Phone: Start: 10-23-2022 End: 10-24-2022 ambulatory CINTIA GOMIJUAN DANIEL . Facility:[facility] Start: 10-09-2022 End: 10-09-[address] ALEENA ANAND . Facility:[facility] Start: 09-21-2022 End: 09-21-[address] DEANN THOMASON Facility:[facility] Start: 2022 End: 09-14-2022 ambulatory YESSI ARBOLEDA . Facility:[facility] Start: 09-11-2022 End: 09-11-2022 ambulatory Piter Maharaj Other [facility] Other Start: 09-11-2022 Office outpatient visit 15 minutes Piter Maharaj [facility] Start: 08-23-2022 End: 08-23-2022 ambulatory Marla Winslow Facility:[facility] Start: 08-23-2022 End: 08-23-2022 ambulatory II Stoney Giles Work Phone: [facility] Work Phone: Start: 08-23-2022 End: 08-23-2022 Patient encounter procedure II Stoney Giles Work Phone: [facility] Work Phone: Start: 08-21-2022 End: 08-21-[address] ALEENA ANAND . Facility:[facility] Start: 08-20-2022 End: 08-20-2022 ambulatory Piter Maharaj Other [facility] Other Start: 08-20-2022 Telephone encounter Piter moctezuma [facility] Start: 08-08-2022 End: 08-08-2022 ambulatory Piter Maharaj Other [facility] Other Start: 08-08-2022 Telephone encounter Piter moctezuma [facility] Start: 07-31-2022 End: 08-01-[address] ALEENA ANAND . Facility:[facility] Start: 07-30-2022 End: 07-30-2022 ambulatory Piter Maharaj Other [facility] Other Start: 07-30-2022 Telephone encounter Piter moctezuma [facility] Start: 07-25-2022 End: 07-25-2022 ambulatory Piter Maharaj Other [facility] Other Start: 07-25-2022 Patient encounter procedure Piter Maharaj [facility] Start: 07-20-2022 End: 07-21-[address] Jamel MAHARAJ Facility: Start: 07-18-2022 End: 07-18-2022 ambulatory Piter Maharaj Other [place] [facility] Other Start: 07-18-2022 Telephone encounter Piter moctezuma [facility] Start: 07-17-2022 End: 07-17-2022 ambulatory RAE HIRSCH . [facility] Other Start: 07-17-2022 Telephone encounter Piter moctezuma [facility] Start: 07-13-2022 End: 07-14-[address] STONEY GILES [facility] Other Start: 07-13-2022 Telephone encounter Piter moctezuma [facility] Start: 07-03-2022 End: 07-03-2022 ambulatory Piter Maharaj Other [place] [facility] Other Start: 07-03-2022 Telephone encounter Piter moctezuma [facility] Start: 06-25-2022 End: 06-25-2022 ambulatory Stoney Giles Facility:[facility] Start: 06-25-2022 Registered Recurring II Stoney Giles Work Phone: [facility] Work Phone: Start: 05-23-2022 End: 05-23-2022 ambulatory Piter Maharaj Other [facility] Other Start: 05-23-2022 Office outpatient visit 15 minutes Piter Maharaj [facility] Start: 04-27-2022 End: 04-28-[address] Jamel MAHARAJ Facility:[facility] Start: 04-25-2022 End: 04-25-2022 ambulatory Piter Maharaj Other [facility] Other Start: 04-25-2022 Office outpatient visit 25 minutes Piter Maharaj [facility] Start: 04-25-2022 Telephone encounter Piter moctezuma [facility] Start: 04-05-2022 End: 04-06-[address] STONEY GILES Facility:[facility] Start: 02-08-2022 End: 02-09-[address] STONEY GILES Facility:[facility] Start: 01-15-2022 End: 01-15-2022 ambulatory Piter Maharaj Other [facility] Other Start: 01-15-2022 Telephone encounter Piter moctezuma [facility] Start: 07-24-2021 End: 07-24-2021 ambulatory Piter Maharaj Other [facility] Other Start: 07-24-2021 Office outpatient visit 15 minutes Piter Maharaj [facility] Start: 06-29-2021 End: 06-29-2021 ambulatory Piter Maharaj Other [facility] Other Start: 06-29-2021 Telephone encounter Piter moctezuma [facility] Procedures Date Procedure Procedure Detail Performing Clinician Start: 04-03-2023 X-ray of cervical spine II Stoney Giles Work Phone: Start: 10-26-2022 Plain chest X-ray II Raúl Giles Work Phone: Start: 08-23-2022 X-ray of left ankle II Stoney Giles Work Phone: Immunizations Immunization Date Immunization Notes Care Provider [facility] 12-21-2014 tetanus toxoid, reduced diphtheria toxoid, and acellular pertussis vaccine, adsorbed Piter Maharaj Other [facility] Other Payers Date Payer Category Payer Medicaid [id number] 2019 Self-pay [id number] 2019 Unknown [id number] 1990 Unknown [id number] [id number]7 1990 Unknown [id number] 2.16.840.1.245911.3.579.2.593 1990 Unknown [id number] 2.16.840.1.006777.3.579.2.593 1990 Unknown [id number] 2.16.840.1.074712.3.579.2.593 1990 Unknown [id number] 2.16.840.1.203052.3.579.2.593 1990 Unknown [id number] 2.16.840.1.659638.3.579.2.593 1990 Unknown [id number] 2.16.840.1.735288.3.579.2.593 1990 Unknown [id number] 2.16.840.1.992645.3.579.2.593 1990 Unknown [id number] 2.16.840.1.190902.3.579.2.593 1990 Unknown [id number] 2.16.840.1.374810.3.579.2.593 1990 Unknown [id number] 2.16.840.1.650676.3.579.2.593 1990 Unknown [id number] 2.16.840.1.184485.3.579.2.593 1990 Unknown [id number] 2.16.840.1.645029.3.579.2.593 1990 Unknown [id number] 2.16.840.1.276016.3.579.2.593 1990 Unknown [id number] 2.16.840.1.451866.3.579.2.593 1990 Unknown [id number] 2.16.840.1.273727.3.579.2.593 1990 Unknown [id number] 2.16.840.1.539940.3.579.2.593 1990 Unknown [id number] 2.16.840.1.007329.3.579.2.1259 1990 Unknown [id number] 2.16.840.1.553239.3.579.2.1259 1990 Unknown [id number] 2.16.840.1.711387.3.579.2.1259 1990 Unknown [id number] 2.16.840.1.112008.3.579.2.1259 1990 Unknown [id number] 2.16.840.1.829147.3.579.2.1259 1990 Unknown [id number] 2.16.840.1.881271.3.579.2.1259 1959 Unknown [id number] 2.16.840.1.302730.19 Private Health Insurance [facility] [id number] Unknown [id number] 2.16.840.1.719706.3.579.2.531 Social History Date Type Detail Facility Sex Assigned At [facility] Other Start: 12-23-2018 End: 12-23-2018 Tobacco smoking status NMIS Smoker (finding) [facility] Start: 1990 Sex Assigned At Female F [facility] Clinical Notes 07-24-2021 to 04-04-2023 Note [...] 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 NoteCONSULTATION CONSULTATION DATE: 10/23/2022 FOLLOW UP NOTE [...] outlined plan. Also, of note, she uses Sharon infrequently. She takes half a pill at a time, when she does use it, and she uses less than 14 pills in a month. Her OARRS report was reconciled. She does report the medicine does improve her quality of life, level of functioning and sleep pattern.[id number] Note CONSULTATION CONSULTATION DATE: 2022 This is [...] self-massage which she finds beneficial. Medications include Sharon 5/325, half pill p.r.n. as needed because [...] be followed in the office there after.[facility] [id number] Evaluation note* Encounter Date Diagnosis Assessment Notes Treatment Notes Treatment Clinical Notes Aug, Crohns disease (ICD-10 - K50.90) Continue Stelara without change Labs and follow up in 6 months [employer] Other 12-20-2022 NoteCONSULTATION CONSULTATION DATE: 07/31/2022 CHIEF [...] currently takes Aleve two tablets a day, Sharon 5/325 on a p.r.n. basis. She tries [...] C4-5 and C6-7. CC: Stoney Giles M.D.[facility] [id number] Evaluation note* Encounter Date Diagnosis Assessment Notes Treatment Notes Treatment Clinical Notes Jul, Crohns disease (ICD-10 - K50.90) CONTINUE STELARA DIRECTED DECREASE PREDNISONE TO 40 MG DAILY FOR 7 DAYS, THEN DECREASE BY 10 MG WEEKLY RTO 6 WEEKS [employer] Other 12-07-2022 Evaluation note* Encounter Date Diagnosis Assessment Notes Treatment Notes Treatment Clinical Notes Jul, Crohns disease (ICD-10 - K50.90) [facility] Other 10-12-2022 Evaluation note* Encounter Date Diagnosis Assessment Notes Treatment Notes Treatment Clinical Notes May, Crohns disease (ICD-10 - K50.90) May, Diarrhea (ICD-10 - R19.7) May, Abdominal cramping (ICD-10 - R10.9) [facility] Other 09-14-2022 Evaluation note* Encounter Date Diagnosis Assessment Notes Treatment Notes Treatment Clinical Notes Apr, Crohns disease (ICD-10 - K50.90) PT HAS TRIED AND FAILED HUMIRA AND ENTYVIO START PPW FOR SKYRIZI RTO 4 WEEKS Apr, Diarrhea (ICD-10 - R19.7) Apr, Abdominal cramping (ICD-10 - R10.9) [facility] Other 06-30-2022 NotePROCEDURE: XR FOOT RT 2V COMPARISON: None. HISTORY: Pain in right foot FINDINGS: BONES:No acute fracture or dislocation. Mild enthesopathic spurring of the calcaneus at the Achilles insertion SOFT TISSUES:Negative. No visible soft tissue swelling. EFFUSION:None visible. OTHER: Negative. IMPRESSION: No acute abnormality Electronically authenticated by: ISABEL CHAVEZ Date: 2022-02-08 17:18[facility] [id number] Evaluation note* Encounter Date Diagnosis Assessment Notes [...] 6 WEEKS, LABS ORDERED AT THIS TIME. [facility] Other Evaluation noteNo InformationNort [employer] Other Evaluation noteNo assessment information available [facility] Work Phone: [facility] Narrative - Reported* Type Description Date Medical History shegalla Surgical History tonsillectomy Hospitalization History childbirth [facility] Other [facility] Narrative - Reported* Type Description Date Medical History shegalla Surgical History tonsillectomy Surgical History RFA Hospitalization History childbirth [facility] Other [facility] general Narrative - Reported* Type Description Date Medical History shegalla Medical History anxiety Medical History Crohns disease Surgical History tonsillectomy Surgical History RFA Hospitalization History childbirth Hospitalization History see above surg. hx. [facility] Other Chief Complaint and Reason for Visit [...] TO HAVE LABS AND START PAPERWORK FOR SKYRIZI.06/21 StelaraClinicalClinical Acute IllnessPREDNISONEClinical Acute IllnessClinical Acute MedicinePT ADDED ON PER LRM. PT WAS TO HAVE LABS DRAWN.PREDNISONE [id number]/30 STELARA INJECTIONSTELARA SHOTPT HERE FOR 3 MONTH [...] section and content) DATE CREATED AUTHOR 11/18/2022 [facility] DATE CREATED AUTHOR AUTHOR'S ORGANIZ ATION 12/23/2022 [facility] DATE CREATED AUTHOR AUTHOR'S ORGANIZ ATION 04/04/2023 [facility] DATE CREATED AUTHOR AUTHOR'S ORGANIZ ATION 09/12/2023 [facility] EPIC FOR RECORDS PERTAINING TO PATIENTS WHO ARE [...] BE BASED ON THE PRIMARY CLINICAL RECORDS. [facility] [employer] [facility]. provides no warranty or guarantee of the accuracy or completeness of information in this document.
== END 2023-09-13 12:12 | disposition home or self-care (01) ==
LOC: MRI 12:11
PROVIDERS: PCP Internal Medicine; Visit Provider Nurse Practitioner
DX: M54.12 Radiculopathy, cervical region (principal)
CPT/HCPCS: 72141

== ENCOUNTER 2023-10-01 13:05 | Outpatient (OUT) | payer MEDICAID, SELFPAY ==
--- NOTE | 2023-10-01 | CONS_ITS ---
CONSULTATION DATE: 10/01/2023 TO: Dr. Giles HISTORY: Patient returns today complaining of persistent pain in her neck, occurring bilaterally, worse on the left side than the right side on today?s visit. She reports the pain is below the level of her previous radiofrequency ablation on the cervical spine. Nevertheless, she reports the pain as being at least 5-7/10 pain, sharp in character, increased with activity such as pushing and pulling maneuvers, lifting maneuvers. She feels most comfortable in the semi-recumbent position. She denies any change in bowel and bladder habits or sensorimotor changes in her upper extremities. IMAGING: We did review her cervical MRI which was performed on 09/13/2023 and compared with the one performed on 03/15/2023. I could not appreciate any significant changes. she did appear to have significant degenerative changes at the C5-6 levels. At C6-7, she appeared to have some mild left posterior disc degeneration with an osteophyte complex, leading to some very mild foraminal narrowing, and this seemed mild at best. She had similar findings at the C5-6 level, occurring bilaterally, slightly more significant on the left than the right side. This was related to the patient. MEDICATION: Current medication list includes Montezuma 5 mg daily p.r.n. She takes Xanax 0.5 mg once or twice a week, and she uses this infrequently, and she uses Montezuma approximately once a day. She reports the medicine does improve her quality of life, level of functioning and sleep pattern. She denies any side effects, and her BERNIE is 14%. EXAM: Our examination is notable for the patient having significant pain with cervical facet loading maneuvers at C5-6, C6-7, left greater than right side with significant myofascial spasm of the cervical paravertebral muscles occurring bilaterally. RECOMMENDATIONS: At this point, I recommend she consider trialing Skelaxin 400 mg, half a pill to one pill b.i.d., physical therapy with modalities such as ultrasound starting with the cervical paravertebral muscles. See the patient back in the office in eight weeks? time or sooner if needed. As part of providing excellent, safe, comprehensive care, the following was completed at our patient's visit: 1. A medication reconciliation and review to ensure accurate knowledge of current/active medications, including asking our patients to inform us about any [id number] medications or herbal remedies/nutritional supplements/alternative remedies. 2. A review to specifically ensure our patients have had annual screening for: elevated body mass index (BMI, see intake chart for exact total), tobacco use, screening for depression, and screening for unhealthy alcohol use. When screening is concerning, patients are provided with education and the specific recommendation to discuss the concerning health issue and treatment options with their primary care provider. RIKA
== END 2023-10-01 13:06 | disposition home or self-care (01) ==
PROVIDERS: PCP Internal Medicine; Visit Provider Nurse Practitioner
DX: M54.2 Cervicalgia (principal); M50.322 Other cervical disc degeneration at C5-C6 level; M50.323 Other cervical disc degeneration at C6-C7 level
CPT/HCPCS: G0463

== ENCOUNTER 2023-10-03 20:48 | Outpatient (REF) | payer MEDICAID, SELFPAY ==
--- OUTSIDE RECORDS SUMMARY | 2023-10-03 20:55 | XMS_ITS | CCD ---
Author Name Unknown Address [address] [place] [address] Organization [facility] Care Team Providers Care [facility] Services Supervisor Name Role Phone Pitre Maharaj Unavailable LUZ Giles Primary Care Provider [phone] MD Piter Maharaj Attending Provider AIDAN Winslow Attending Provider LUZ Giles Primary Care Provider AIDAN [place] Attending Provider [phone] JOSE Chauhan Attending Provider [phone] Gilbert Chauhan Admitting Unavailable Gilbert Chauhan Attending [...] Unavailable Stoney Giles Primary Care Unavailable Gilbert Chahuan Admitting Unavailable Gilbert Chauhan Attending Unavailable Stoney Giles Primary Care Unavailable Dutch Pereyra Admitting Unavailable Dutch Pereyra Attending Unavailable Stoney Giles Primary Care Unavailable Dutch Pereyra Unavailable LUZ Giles Primary Care Provider MD Dutch Pereyra Attending Provider JOHN SHUKLA Attending Unavailable STONEY GILES Attending Unavailable NOAH HANSEN Attending Unavailable NOAH HANSEN Referring Unavailable JAVED LEVIN Attending Unavailable APLINGNOAH Attending Unavailable APLNOAH HOWARD Attending Unavailable Allergies Allergy Classification Reported Allergen(s) Allergy Type Date of Onset Reaction(s) Facility (9 sources) Adhesive agent; Translations: [Adhesive] Allergy to substance 6 Unknown Reaction, Unknown [facility] (14 sources) Latex; Translations: [Latex] Allergy to substance 9 Unknown Reaction, Unknown [facility] (5 sources) BANDAIDS; Translations: [BANDAIDS] Allergy to substance 9 Unknown Reaction [facility] Medications Current Medications Medication Drug Class(es) Dates [...] / HYDROcodone bitartrate 7.5 mg oral tablet (20 sources) Opioid Agonist Start: 09-28-2019 Hydrocodone-Ac etaminophen [...] DISPENSE WITH ON BODY INJECTOR Apr, Active 1 ml ustekinumab 90 mg/ml prefilled syringe (8 sources) Interleukin-12 Antagonist, Interleukin-23 Antagonist Stelara 90 MG/ ML 90mg Subcutaneous every 8 weeks Active vedolizumab 300 mg injection (15 sources) Integrin Receptor Antagonist Start: 09-02-2019 Vedolizumab (Entyvio) 300 mg Recon Soln Active 300 MG [...] 22, 2018 12:00am September 28, 2019 2:55pm Problems Active Problems Problem Classification Problem Date [...] 09-24-2022 Episodic Other aftercare (1 source) Other rodent exterminator (current) drug therapy; Translations: [OTH PENITENTIARY CURRENT DRUG THERAPY] Onset: 09-24-2022 Episodic Other connective tissue disease (5 sources) Other muscle spasm; Translations: [OTHER MUSCLE SPASM] Onset: 10-29-2022 Episodic Other gastrointestinal disorders (20 sources) Diarrhea; Translations: [Diarrhea, unspecified] 12-23-2018 Episodic Other injuries and conditions due to external causes (4 sources) Unspecified injury of head, initial encounter; Translations: [UNSPECIFIED INJURY HEAD INITIAL ENC] Onset: 09-21-2022 Episodic Other nervous system disorders (2 sources) Carpal tunnel syndrome of right wrist; Translations: [Carpal tunnel syndrome, right upper limb] Chronic Other nervous system disorders (1 source) Carpal tunnel syndrome, right upper limb Chronic Regional enteritis and ulcerative colitis (20 sources) Crohn's disease of small intestine; Translations: [Crohn's disease of small intestine without complications] Onset: 07-24-2021 Resolved: 04-25-2022 Chronic Spondylosis; intervertebral disc disorders; other back problems (14 sources) Spondylosis without myelopathy or radiculopathy, cervical region; Translations: [Other cervical disc degeneration, unspecified cervical region] Onset: 04-05-2022 Chronic Spondylosis; intervertebral disc disorders; other back problems (8 sources) Cervicalgia; Translations: [Pain in cervical spine] [...] 04-03-2023 ALT [Catalytic activity/Vol] 8 U/L 7-52 [facility] Albumin [Mass/volume] in Ser um or Plasma by Bromocresol green (BCG) dye binding methoOrdered By: Piter Maharaj on 04-03-2023 Albumin BCG dye [Mass/Vol] 4.6 g/dL 3.5-5.7 [facility] Alkaline phosphatase [Enzyma tic activity/volume] in Serum or PlasmaOrdered By: Piter Maharaj on 04-03-2023 ALP [Catalytic activity/Vol] 50 U/L 34-104 [facility] Aspartate aminotransferase [ Enzymatic activity/volume] in Serum or PlasmaOrdered By: Piter Maharaj on 04-03-2023 AST [Catalytic activity/Vol] 10 U/L 13-39 [facility] Basophils Auto (Bld) [#/Vol] Ordered By: Piter Maharaj on 04-03-2023 Basophils (Bld) [#/Vol] 0.1 10*3/uL 0.0-0.2 [facility] Basophils/100 WBC Auto (Bld) Ordered By: Piter Maharaj on 04-03-2023 Basophils/100 WBC (Bld) 0.9 % . F [facility] Bilirubin.total [Mass/volume ] in Serum or PlasmaOrdered By: Piter Maharaj on 04-03-2023 Bilirubin [Mass/Vol] 0.6 mg/dL 0.3-1.0 [facility] C reactive protein [Mass/vol ume] in Serum or PlasmaOrdered By: Piter Maharaj on 04-03-2023 CRP [Mass/Vol] < 0.5 mg/dL 0.0-0.5 [facility] C-Reactive Proteinon 023 CRP [Mass/Vol] mg/L Normal 0.0-0.5 [facility] Comment on above: Order Comment: Reaso n for Exam Crohns disease Result Comment: PERF ORMED BY: [place] [address] PATHOLOGIST [employer] JOANA SALCIDO M.D. Performed By: #### C RP, CMP #### [facility] [address] Calcium [Mass/volume] in Ser um or PlasmaOrdered By: Piter Maharaj on 04-03-2023 Calcium [Mass/Vol] 8.8 mg/dL 8.6-10.3 [facility] Carbon dioxide, total [Moles /volume] in Serum or PlasmaOrdered By: Piter Maharaj on 04-03-2023 CO2 [Moles/Vol] 25.0 mmol/L 21.0-31.0 [facility] Chloride [Moles/volume] in S darwin or PlasmaOrdered By: Piter Maahraj on 04-03-2023 Chloride [Moles/Vol] 110 mmol/L 98-107 [facility] Complete Blood Count Auto Di ffon 04-03-2023 Basophils (Bld) [#/Vol] 0.1 10*3/uL Normal 0.0-0.2 [facility] Comment on above: Order Comment: Reaso n for Exam Crohns disease Performed By: #### E SR, CBC #### [facility] [address] Basophils/100 WBC (Bld) 0.9 % Normal . F [facility] Comment on above: Order Comment: Reaso n for Exam Crohns disease Performed By: #### E SR, CBC #### [facility] [address] Eosinophils (Bld) [#/Vol] 0.1 10*3/uL Normal 0.0-0.45 [facility] Comment on above: Order Comment: Reaso n for Exam Crohns disease Performed By: #### E SR, CBC #### [facility] [address] Eosinophils/100 WBC (Bld) 1.3 % Normal . [facility] Comment on above: Order Comment: Reaso n for Exam Crohns disease Performed By: #### E SR, CBC #### [facility] [address] [place] [address] Erythrocyte distribution width (RBC) [Ratio] 12.1 % Normal 11.9-15.3 [facility] Comment on above: Order Comment: Reaso n for Exam Crohns disease Performed By: #### E SR, CBC #### [facility] [address] Hematocrit (Bld) [Volume fraction] 39.4 % Normal 34.0-46.4 [facility] Comment on above: Order Comment: Reaso n for Exam Crohns disease Performed By: #### E SR, CBC #### [facility] [address] [place] [address] [place] Hemoglobin (Bld) [Mass/Vol] 13.5 g/dL Normal 11.8-15.4 [facility] Comment on above: Order Comment: Reaso n for Exam Crohns disease Performed By: #### E SR, CBC #### [facility] [address] Lymphocytes (Bld) [#/Vol] 1.9 10*3/uL Normal 1.00-4.8 [facility] Comment on above: Order Comment: Reaso n for Exam Crohns disease Performed By: #### E SR, CBC #### [address] Lymphocytes/100 WBC (Bld) 31.9 % Normal . [facility] Comment on above: Order Comment: Reaso n for Exam Crohns disease Performed By: #### E SR, CBC #### [address] MCH (RBC) [Entitic mass] 30.4 pg Normal 24.7-34.3 [facility] Comment on above: Order Comment: Reaso n for Exam Crohns disease Performed By: #### E SR, CBC #### [facility] [address] [place] [address] MCV (RBC) [Entitic vol] 88.7 fL Normal 80-100 F [facility] Comment on above: Order Comment: Reaso n for Exam Crohns disease Performed By: #### E SR, CBC #### [facility] [address] [place] [address] Mean Corpuscular HGB Conc 34.2 g/dL Normal 32.0-35.0 [facility] Comment on above: Order Comment: Reaso n for Exam Crohns disease Performed By: #### E SR, CBC #### [address] Monocytes (Bld) [#/Vol] 0.5 10*3/uL Normal 0.0-0.8 [facility] Comment on above: Order Comment: Reaso n for Exam Crohns disease Performed By: #### E SR, CBC #### [facility] [address] [place] [address] [place] Monocytes/100 WBC (Bld) 7.5 % Normal . F [facility] Comment on above: Order Comment: Reaso n for Exam Crohns disease Performed By: #### E SR, CBC #### [facility] [address] Neutrophils (Bld) [#/Vol] 3.5 10*3/uL Normal 1.8-7.7 [facility] Comment on above: Order Comment: Reaso n for Exam Crohns disease Performed By: #### E SR, CBC #### [facility] [address] Neutrophils/100 WBC (Bld) 58.4 % Normal . [facility] Comment on above: Order Comment: Reaso n for Exam Crohns disease Performed By: #### E SR, CBC #### [facility] [address] [place] [address] NRBC% 0.2 /100{WBC} Normal 0-0.5 [facility] Comment on above: Order Comment: Reaso n for Exam Crohns disease Performed By: #### E SR, CBC #### [facility] [address] [place] [address] Platelet mean volume (Bld) [Entitic vol] 9.3 fL Normal 6.3-10.7 [facility] Comment on above: Order Comment: Reaso n for Exam Crohns disease Performed By: #### E SR, CBC #### [facility] [address] [place] [address] [place] Platelets (Bld) [#/Vol] 189 10*3/uL Normal 150-450 [facility] Comment on above: Order Comment: Reaso n for Exam Crohns disease Performed By: #### E SR, CBC #### [facility] [address] [place] [address] [place] RBC (Bld) [#/Vol] 4.44 10*6/uL Normal 3.60-5.00 [facility] Comment on above: Order Comment: Reaso n for Exam Crohns disease Performed By: #### E SR, CBC #### [facility] [address] WBC (Bld) [#/Vol] 6.1 10*3/uL Normal 3.8-11.6 [facility] Comment on above: Order Comment: Reaso n for Exam Crohns disease Performed By: #### E SR, CBC #### [facility] [address] Comprehensive Metabolic Pane bob 04-03-2023 Albumin [Mass/Vol] 4.6 g/dL Normal 3.5-5.7 [facility] Comment on above: Order Comment: Reaso n for Exam Crohns disease Performed By: #### C RP, CMP #### [address] Albumin/Globulin [Mass ratio] 2.3 {ratio} Normal [facility] Comment on above: Order Comment: Reaso n for Exam Crohns disease Performed By: #### C RP, CMP #### [address] ALP [Catalytic activity/Vol] 50 U/L Normal 34-104 [facility] Comment on above: Order Comment: Reaso n for Exam Crohns disease Performed By: #### C RP, CMP #### [address] ALT [Catalytic activity/Vol] 8 U/L Normal 7-52 [facility] Comment on above: Order Comment: Reaso n for Exam Crohns disease Performed By: #### C RP, CMP #### [address] Anion gap [Moles/Vol] 8.9 mmol/L Normal 6.0-15.0 [facility] Comment on above: Order Comment: Reaso n for Exam Crohns disease Performed By: #### C RP, CMP #### [address] AST [Catalytic activity/Vol] 10 U/L Low 13-39 [facility] Comment on above: Order Comment: Reaso n for Exam Crohns disease Performed By: #### C RP, CMP #### [facility] [address] Bilirubin [Mass/Vol] 0.6 mg/dL Normal 0.3-1.0 [facility] Comment on above: Order Comment: Reaso n for Exam Crohns disease Performed By: #### C RP, CMP #### [facility] [address] Calcium [Mass/Vol] 8.8 mg/dL Normal 8.6-10.3 [facility] Comment on above: Order Comment: Reaso n for Exam Crohns disease Performed By: #### C RP, CMP #### [facility] [address] Chloride [Moles/Vol] 110 mmol/L High 98-107 [facility] Comment on above: Order Comment: Reaso n for Exam Crohns disease Performed By: #### C RP, CMP #### [facility] [address] CO2 [Moles/Vol] 25.0 mmol/L Normal 21.0-31.0 [facility] Comment on above: Order Comment: Reaso n for Exam Crohns disease Performed By: #### C RP, CMP #### [facility] [address] Creatinine [Mass/Vol] 0.89 mg/dL Normal 0.60-1.20 [facility] Comment on above: Order Comment: Reaso n for Exam Crohns disease Performed By: #### C RP, CMP #### [facility] [address] [place] [address] [place] GFR/1.73 sq M.predicted MDRD (S/P/Bld) [Vol rate/Area] mL/min/{1.73_m2} Normal [facility] Comment on above: Order Comment: Reaso n for Exam Crohns disease Performed By: #### C RP, CMP #### [facility] [address] [place] [address] [place] Globulin (S) [Mass/Vol] 2.0 g/dL Normal [facility] Comment on above: Order Comment: Reaso n for Exam Crohns disease Performed By: #### C RP, CMP #### [facility] [address] Glucose [Mass/Vol] 91 mg/dL Normal 70-100 [facility] Comment on above: Order Comment: Reaso n for Exam Crohns disease Result Comment: [place] Glucose Reference Range is dependent on time and content of last meal. Glucose of more than 200 mg/dL in a nonstressed, ambulatory subject supports the diagnosis of Diabetes Mellitus. ADA recommended reference range Performed By: #### C RP, CMP #### [address] Potassium [Moles/Vol] 3.9 mmol/L Normal 3.5-5.1 [facility] Comment on above: Order Comment: Reaso n for Exam Crohns disease Performed By: #### C RP, CMP #### [address] Protein [Mass/Vol] 6.6 g/dL Normal 6.4-8.9 [facility] Comment on above: Order Comment: Reaso n for Exam Crohns disease Performed By: #### C RP, CMP #### [address] Sodium [Moles/Vol] 140 mmol/L Normal 136-145 [facility] Comment on above: Order Comment: Reaso n for Exam Crohns disease Performed By: #### C RP, CMP #### [place] [address] [place] Urea nitrogen [Mass/Vol] 12 mg/dL Normal 7-25 [facility] Comment on above: Order Comment: Reaso n for Exam Crohns disease Performed By: #### C RP, CMP #### [address] Creatinine [Mass/volume] in Serum or PlasmaOrdered By: Piter Maharaj on 04-03-2023 Creatinine [Mass/Vol] 0.89 mg/dL 0.60-1.20 [facility] Eosinophils Auto (Bld) [#/Vo l]Ordered By: Piter Maharaj on 04-03-2023 Eosinophils (Bld) [#/Vol] 0.1 10*3/uL 0.0-0.45 [facility] Eosinophils/100 WBC Auto (Bl d)Ordered By: Piter Mahaarj on 04-03-2023 Eosinophils/100 WBC (Bld) 1.3 % . [facility] Erythrocyte Sedimentation Ra sri 04-03-2023 ESR (Bld) [Velocity] mm/h Normal 0- [facility] Comment on above: Order Comment: Reaso n for Exam Crohns disease Result Comment: PERF ORMED BY: [place] [address] PATHOLOGIST [employer] JOANA SALCIDO M.D. Performed By: #### E SR, CBC #### [address] Erythrocyte distribution wid th Auto (RBC) [Ratio]Ordered By: Piter Maharaj on 04-03-2023 Erythrocyte distribution width (RBC) [Ratio] 12.1 % 11.9-15.3 [facility] Erythrocyte sedimentation ra te by Photometric methodOrdered By: Piter Maharaj on 04-03-2023 ESR Photometric method (Bld) [Velocity] < 1 mm/hr 0 [facility] Globulin Calc (S) [Mass/Vol] Ordered By: Piter Maharaj on 04-03-2023 Globulin (S) [Mass/Vol] 2.0 g/dL F [facility] Glucose [Mass/volume] in Ser um or PlasmaOrdered By: Piter Maharaj on 04-03-2023 Glucose [Mass/Vol] 91 mg/dL 70-100 [facility] Comment on above: ADA recommended refe rence rangeRandom Glucose Reference Range is dependent on time and content of last meal. Glucose of more than 200 mg/dL in a nonstressed, ambulatory subject supports the diagnosis of Diabetes Mellitus. Hematocrit Auto (Bld) [Volum e fraction]Ordered By: Piter Maharaj on 04-03-2023 Hematocrit (Bld) [Volume fraction] 39.4 % 34.0-46.4 [facility] Hemoglobin [Mass/volume] in BloodOrdered By: Piter Maharaj on 04-03-2023 Hemoglobin (Bld) [Mass/Vol] 13.5 g/dL 11.8-15.4 [facility] Leukocytes [#/volume] correc ricardo for nucleated erythrocytes in Blood by Automated counOrdered By: Piter Maharaj on 04-03-2023 WBC corrected for nucl RBC Auto (Bld) [#/Vol] 6.1 10*3/uL 3.8-11.6 [facility] Lymphocytes Auto (Bld) [#/Vo l]Ordered By: Piter Maharaj on 04-03-2023 Lymphocytes (Bld) [#/Vol] 1.9 10*3/uL 1.00-4.8 [facility] Lymphocytes/100 WBC Auto (Bl d)Ordered By: Piter Maharaj on 04-03-2023 Lymphocytes/100 WBC (Bld) 31.9 % . [facility] MCH Auto (RBC) [Entitic mass ]Ordered By: Piter Maharaj on 04-03-2023 MCH (RBC) [Entitic mass] 30.4 pg 24.7-34.3 [facility] MCHC Auto (RBC) [Mass/Vol]Or dered By: Piter Maharaj on 04-03-2023 MCHC (RBC) [Mass/Vol] 34.2 g/dL 32.0-35.0 [facility] MCV Auto (RBC) [Entitic vol] Ordered By: Piter Maharaj on 04-03-2023 MCV (RBC) [Entitic vol] 88.7 fL 80-100 F [facility] Monocytes Auto (Bld) [#/Vol] Ordered By: Piter Maharaj on 04-03-2023 Monocytes (Bld) [#/Vol] 0.5 10*3/uL 0.0-0.8 [facility] Monocytes/100 WBC Auto (Bld) Ordered By: Piter Maharaj on 04-03-2023 Monocytes/100 WBC (Bld) 7.5 % . F [facility] Neutrophils Auto (Bld) [#/Vo l]Ordered By: Piter Maharaj on 04-03-2023 Neutrophils (Bld) [#/Vol] 3.5 10*3/uL 1.8-7.7 [facility] Neutrophils/100 WBC Auto (Bl d)Ordered By: Piter Maharaj on 04-03-2023 Neutrophils/100 WBC (Bld) 58.4 % . [facility] No Panel InformationOrdered By: Piter Maharaj on 04-03-2023 Estimated GFR (CKD-EPI) > 60.0 mL/Min [facility] Pharmacy Creatinine Clearance (Chem N/A [facility] Nucleated erythrocytes [Pres ence] in Blood by Automated countOrdered By: Piter Maharaj on 04-03-2023 Nucleated RBC Auto Ql (Bld) 0.2 /100{WBC} 0-0.5 [facility] Platelet mean volume Auto (B ld) [Entitic vol]Ordered By: Piter Maharaj on 04-03-2023 Platelet mean volume (Bld) [Entitic vol] 9.3 fL 6.3-10.7 [facility] Platelets Auto (Bld) [#/Vol] Ordered By: Piter Maharaj on 04-03-2023 Platelets (Bld) [#/Vol] 189 10*3/uL 150-450 [facility] Potassium [Moles/volume] in Serum or PlasmaOrdered By: Piter Maharaj on 04-03-2023 Potassium [Moles/Vol] 3.9 mmol/L 3.5-5.1 [facility] Protein [Mass/volume] in Ser um or PlasmaOrdered By: Piter Maharaj on 04-03-2023 Protein [Mass/Vol] 6.6 g/dL 6.4-8.9 [facility] RBC Auto (Bld) [#/Vol]Ordere d By: Piter Maharaj on 04-03-2023 RBC (Bld) [#/Vol] 4.44 10*6/uL 3.60-5.00 [facility] Serum or plasma albumin/glob ulin mass ratioOrdered By: Piter Maharaj on 04-03-2023 Albumin/Globulin [Mass ratio] 2.3 {ratio} [facility] Serum or plasma anion gap de terminationOrdered By: Piter Maharaj on 04-03-2023 Anion gap [Moles/Vol] 8.9 mmol/L 6.0-15.0 [facility] Sodium [Moles/volume] in Ser um or PlasmaOrdered By: Piter Maharaj on 04-03-2023 Sodium [Moles/Vol] 140 mmol/L 136-145 [facility] Urea nitrogen [Mass/volume] in Serum or PlasmaOrdered By: Piter Maharaj on 04-03-2023 Urea nitrogen [Mass/Vol] 12 mg/dL 7-25 [facility] WBC Auto (Bld) [#/Vol]Ordere d By: Piter Maharaj on 04-03-2023 WBC (Bld) [#/Vol] 6.1 10*3/uL 3.8-11.6 [facility] XR cervical spine w flex/ext on 04-03-2023 XR cervical spine w flex/ext [place] [address] XRay Report Signed Patient: Alejandra Licona MR#: [id number] : 1990 Acct:[id number] Age/Sex: 32 / F ADM Date: 04/03/23 Loc: XD Room: Type: [facility] Attending Dr: Dutch Pereyra MD Copies [...] Brian Muhammad M.D.04/03/2023 7:24 PM Dictation Location: [place] [address] Transcribed By: [facility] 04/03/231923 Dictated By: Brian Muhammad II, MD 04/03/231921 Signed By: 04/03/231923 [facility] PREG HCG QUALon 12-11-2022 , QUAL Negative Normal NEGATIVE [facility] Comment on above: Performed By: #### C MVM #### [facility] [address] [place] [address] [address] Niurka Blount PREG HCG QUALon 12-04-2022 , QUAL Negative Normal NEGATIVE [facility] Comment on above: Performed By: #### P REG #### [facility] [address] [place] [address] [address] Niurka Blount Coding Summary.on 11-17-2022 Coding Summary. CD:[id number] bWw+PGhlYWQ+LE7VTBZ aV49hyVYnjT6cA5MWFL lOSywgQVBQTElOSyIgb wXzPJ8uiCUxBWYy IC8+MX7rZJCbJwzmoAR wl9C1wMY9J28lqk4dAW idgOZ5YHDgNeVffyumh 9vglZe2HZtlTfunMnGy PBIguX57CXL2iP70Rm5 3vAVrwFNqc4hhwPz9Gg FsWCEuIIG5wLtjBZvyr 6EuQCRcW21saMYul5O6 IGNvbGxhcHNlOyBlbXB 9rH1cLSsrcbrgr5mdud mxXoe2fs21iLIxd6A1y IZ7G4BmyrK9DSHdlGVy AwqkxGJAmX4kzblrj7a jykmtIlNiKWRfRSu3FE c5ILTfiIveGdLkPK31N MI5TCNkieObG7PtCKRx cAneImS7d2L7Sm7KW1F NLabhA9DXZUOSMGjnkP Q+BJ56rn91O9QgAqbcH gn9RCApYKJ1aEE7oH9y AJMrOYlzm1A3zJN3U5J ohsNhdk4pc4ykRMIlJT ytS29tiVMsj2Y8FVVkj II1WPFxeVtgDeJejG68 Oyc+AOPseJdrx0CxAda uu8xqy5oufPa3QwphEJ AmbkAhyTlpLPO8n3FqX m4aNFAjfSD3wFB6oV4z AfRjVxC4MDgcD451RjE eoLWiGfwlX51sG9JtkG A+DWPcDkc5ZQSrmDcrS T2pB2BgBDBqazemzQLu yLfxRX8iJDPteszjQZP tfS6gFLDhF2c0QeJoYo Y6HMzlA8LiEOStzkomG m46dH2eUiCqGbU5VCnx H3DzdoP5UFVgjMXmUUf mFBV8E73yw0C2WRDrUA NpYCV7bHA1hQ6ryPfjb jogbGVmdDsgdmVydGlj IQtmCThjG749YKCzoIb nPkNvZGluZyBEYXRlOi AgMDQvMDgvMjAyMzwvd GQ+TDPmWKX2mUkyFJVy zDEnPOqoJf7ikTvkxYf qNU8dFKIgxdlwAXJxdW 3lEQCaaOYghOeoSV0lH HUunqkdh512YoIwQFJ8 UUFzlBCcC8OccO3kAeX hTOTrGCFnR7BxoMRsSW xeJ881IVwzEyL3FINxu wGxN9TbBRSjhWlpBuA8 d4C0Zq0Hx0HufrwzQ7R sjRDlBkCeEcqmITj0V9 RkPjwvdHI+LJ48GJZeX J26UEe9SHD4oRzgOBpf RJHeT9DufO7eYoYlAXZ kZGRkOyc+PHRhYmxlIH dpZHRoPScxMDAlJyBzd PewOK9kVn2xPMRcQHEa sFfhgZJoQdLyt6ptGQS uVArxXH1ooHxwB3OggE X7LGLbc1y3Sq14U01rH 3JvdXA+CEYixII5nSC5 pG7hYaWfWjN7PVjfO35 5FrWohSRaGfkdk8aey6 vlpVf8PgR4INVwxyBtd KunOHW7s5SlBm97E95n IHdpZHRoPSIxNSUiIHZ ngDxjwg6sqS7iNm8+PG AcjOY4jYK2fE3qYfJrB lF3MGvrU981XxQcqUMj Xoayf8pcp4xszKa5QbD uJRDeahHjzCbeHQT7p6 FjGw50N7DtyQmzr9IjQ di5ba61fAXks4C0aRC8 N6BrUCWtlhbmgHLsdYt wYM8lFBZeeunqEDLteG 2mTILtJ3n3QgWmMrM8U CxrE8HxheM3QNUxdUJw DXRnxBJPqE8oxjiia7x bzvtbBgAeNBQkOHc7ZU j8GXYxlKfaKtMjGUZ5I uG6DCS1bBGasL6lfHca orlujE5hNpo+JBA0fVG qmTAARK1uMebdrZV+PH FvFFU3wRwiQBtcJRNdy K8aMOHhI1z1SmTfAaZ5 ZSjkU7RnkiD1ALQsnBT eJAMolSPOvT1kbvgei2 zrqqpyHjKcEKQoPBf6W Fs7YTFppTahUvXzIVM5 IfW1GSH5zGSfhX9tnLr vhaebaK2kVwv+QmlydG aaPAM9RPb8Q1RtQzq5N SMvfLxrWM6kvDJfVWyg Fk8gsLztcDutKB8aTHF lwdbtr147KiIiu6ncAV ZnxAZzIXifWTC4B87yj 3D3DPYxPMJuBDN1hSW9 wR3inNxvemjqsPOqdHo gdmVydGljYWwtYWxpZ2 33QCLpfDnpBrVvYPg0A 0XjUqp5POVnrKecBX4p uNZbJLrrQp6udLrtzTf vBO0nHFXptmsdz152Yt Rzt2oxRAEbvLYcLEowU FM3S61ws1U0NQMrSLZs CDX7gLA7gU0goZklszv gbGVmdDsgdmVydGljYW abVZvgD053QIWapGqcV nXyfYr6C6TgIyy5IRHj uHngUM3dpCNvIAveXa0 jcZdxmWkmGW3gALUifg lqg353BmEzb6jbQAXfl OYmUQmjWWS0P04st4S4 JVUjDPSpQSY3eEP0mS3 hbGlnbjogbGVmdDsgdm HqsApdVVsjHTapV867P HRvcDsnPlBhdGllbnQg ODfxIEe9N9OrDdkjtCP +WZ02TNAhZZ25bEYqzL Fot9occKy6PkTqUPSxT RN1sDpfRYbwh7IaBRMk Y14ziFZqp6E2CXGviPg buUKrEfCbfSG4vL6eIU zxkghim1apsbzpZlbcy 0kewm20wP81Q50tOLhh ZHRoPSIzMCUiIHZhbGl qls5lmE3lYf9+PGNvbC M2jDM5fP4lPVNqZsI3R XyjZ283LtEpyGOiZppf q9tus9vjlOb0XzP9IWI bheNoeMukSIQ5k2BjIs 43F29nUHupXOIzROHsC RPhLLLrtRvhsz7tbF1n Ii8+JXEplIS3vFD1fZ7 fQkUpVoI1OJokP935Ov QimWPzIfoqD01fM3Hig XA+HNFdDdy2PUYeoApc HU7edOOySYnjNh6fTTT 2NaQgSdBvFIdoA3DoVO IlduakkqvpgBK7MDOxI YGymM62Qe8rqDsiYSBo yREIoU3dwwzye5tczqz sEbKrEEOqTBl9BZz2MY TcaVqgDvCrQRH8OuU0V JE6bJCawB1tuQkcewqc wG6tY9ReQCEiqtjkYy7 4xO9qDoPjUcV8PTjvYs c+YR5KVc0JAabeGMuRJ FkgTTwvdGQ+PHRkIHN0 pBxpMHogHLRngA4uYID oP5d1IyDfSkR1LQptL7 XyQCIgunvcPw42tU7qP fOnLyR8DStaO8WlrsO5 CDAbiXDeKLfiSDM7K53 xd6Q0MWAtGBEaZSV2oE B2cP5rpRylbggxaGLrr DsgdmVydGljYWwtYWxp T905NNMlaQurViRfRwW iExR7WNA3F7IrDed6LS QpbQteVW6vzKFlJLbzM q4jiIkwoLxmMR5iLSWg zbghBBZwmF7gJCOgbXQ juWyrNG5lOTPzghmxx1 70PtWnJRZ3JUOrdDXlD 9WifE7oBqSyTFIrCIHb C7OjvIUfTDhfB814AEu gAbR2RZDupeQyF2IxJT RtyNiiVuJ8e6X3Nu6xR iBZZWFyczwvdGQ+PHRk GJB1fTitTFjiKLGteW3 rXLWkQ2k4NnYvIpS3WP moT6SjOFFekiisFv47h V8mAkHrKpF4LHfyW5Cx acL2BSLmfYOaNSopYSB 2Z79jl1U4KSOaTRBqBJ Q0fSC2yO7kaOnfzesyt GVmdDsgdmVydGljYWwt SKblS923DENqjGxyXnY lbWFsZTwvdGQ+PHRkIH T0fZnyQGgcEPBelF6rI DInZ2q7VnThXwP3ULzf K8DyKXGelwkbGm24gC1 lXpWpByR6MAfaF3Dgbr C6ONNrbRAmDJbyBFO9Z 35xd8O7FWUvURAuABX9 rEA5iF7ioVfcrapqcOP mdDsgdmVydGljYWwtYW osE426EERsmAtfLbuzU mGZjl6vZP9nUxdrnKY+ OM99yo03D9YzQuoeWsm 5FXNnCLH0aPS7eO0cBB OpBTznn8E7nMD6Q4Uyh oMcyk0zs3pjONIyMEyb A33bnOVmv2X6KTOuoEX 8PLUnyUfwBuFryQ54Is c+WKJxqHzsi2XjPhkeu 3gsp3qumCe6SuGlVVDy wvPtzNciHOH9s6HySs5 9R49xVGyxMZHuTDOrFU NqYYNakBurzl8ndL7iH i8+ABQxtIN2qDN5aO9p NoDuSdM7QSplY081QbU bzLZbMatjd1gee3setE p3MoBgMFQcabOucKsqE CO9z7IrIx44I9OwaBmo l3UnVkm5fk36cLFnj3C 4bWY3L1DtHIFmpxzwqD GtiOytHD0eWOPtkxsbI VIzzQ6vSCGhD1p2PcYi TfB7MOfpH2PdjuN5RME ukTXeBPYmaINCtM9wtl zzo0pfeghlFkMlQCEgM Be0DTa2PVLgmDnlYdUo TRF4SiV9MUN5zVFboT9 gxRyspceojT1wWqr+UG n2j3bnqRXiNA4taOL6A E71SN64qCZad9U9cSS3 J9VpHOLuprnnpawdnSW 6IXNwWQIhiY68Co8ahY xiLo4mVTAyCNV1ANMgh NGtH3GdzG4aObKfKDXt OTNwM9ZyyAMaQObqY48 9XYptSgE0HVOysjXgA8 JdCWJjpBjxVoT4w3O4L w3VDI29KU23YT67eXOl b5S4mSX5M5UmJUJdrib uupbpdJL4MQSkIUDtkQ 93Tz7jsDzcIm6eWQXaD IL4BVDbgNOaT3VuvB0n HgIlLGTpAABcY9XfbEB aXAkrR391MWcrAtW0YS JisjXuS5HaBLHjlCpwK jW0e8D2Ku1BNm05TT36 CE99cNZis7U8yQE9J1Y bLEFzawaavktryQE4LB CaVTWbpJ35Ip6yaDdkN q0vRRHhIIX2QZEvsMIs B2RutI2aWnWiTNNkFRE aA0IrnULkLGdzF151FY hnTaB9MPQfcrUeM0RnO NAcqZysSsB0f3H6Ji3L MHqtusx8H2MuCaxhnKO +EH51HLIjWR39sAXemQ Gfo8rvgGj0KcLgYAMuX EE3lWccUOhxx9EtRZTs E98xcLTp (more content not included)... Normal [facility] Physician Orderon 11-07-2022 Physician Order [id number] Normal [facility] Basic Metabolic Panelon 10-10 Anion gap [Moles/Vol] 12.5 mmol/L Normal 6.0-15.0 [facility] Comment on above: Order Comment: Reaso n for Exam Preprocedural examination Performed By: #### C , BMP #### [address] Calcium [Mass/Vol] 9.4 mg/dL Normal 8.6-10.3 [facility] Comment on above: Order Comment: Reaso n for Exam Preprocedural examination Result Comment: PERF ORMED BY: [place] [address] PATHOLOGIST [employer] JOANA SALCIDO M.D. Performed By: #### C BC, BMP #### [place] [address] [place] Chloride [Moles/Vol] 105 mmol/L Normal 98-107 [facility] Comment on above: Order Comment: Reaso n for Exam Preprocedural examination Performed By: #### C BC, BMP #### [place] [address] [place] CO2 [Moles/Vol] 26.4 mmol/L Normal 21.0-31.0 [facility] Comment on above: Order Comment: Reaso n for Exam Preprocedural examination Performed By: #### C BC, BMP #### [place] [address] [place] Creatinine [Mass/Vol] 0.91 mg/dL Normal 0.60-1.20 [facility] Comment on above: Order Comment: Reaso n for Exam Preprocedural examination Performed By: #### C BC, BMP #### [place] [address] [place] GFR/1.73 sq M.predicted MDRD (S/P/Bld) [Vol rate/Area] mL/min/{1.73_m2} Normal [facility] Comment on above: Order Comment: Reaso n for Exam Preprocedural examination Performed By: #### C BC, BMP #### [facility] [address] [place] [address] [place] Glucose [Mass/Vol] 91 mg/dL Normal 74-109 [facility] Comment on above: Order Comment: Reaso n for Exam Preprocedural examination Result Comment: [place] Glucose Reference Range is dependent on time and content of last meal. Glucose of more than 200 mg/dL in a nonstressed, ambulatory subject supports the diagnosis of Diabetes Mellitus. ADA recommended reference range Performed By: #### C BC, BMP #### [facility] [address] Potassium [Moles/Vol] 3.9 mmol/L Normal 3.5-5.1 [facility] Comment on above: Order Comment: Reaso n for Exam Preprocedural examination Performed By: #### C BC, BMP #### [facility] [address] Sodium [Moles/Vol] 140 mmol/L Normal 136-145 [facility] Comment on above: Order Comment: Reaso n for Exam Preprocedural examination Performed By: #### C BC, BMP #### [facility] [address] Urea nitrogen [Mass/Vol] 15 mg/dL Normal 7-25 [facility] Comment on above: Order Comment: Reaso n for Exam Preprocedural examination Performed By: #### C BC, BMP #### [facility] [address] Basophils Auto (Bld) [#/Vol] Ordered By: Gilbert Chauhan on 10-26-2022 Basophils (Bld) [#/Vol] 0.1 10*3/uL 0.0-0.2 [facility] Basophils/100 WBC Auto (Bld) Ordered By: Gilbert Chauhan on 10-26-2022 Basophils/100 WBC (Bld) 0.8 % . F [facility] Calcium [Mass/volume] in Ser um or PlasmaOrdered By: Gilbert Chauhan on 10-26-2022 Calcium [Mass/Vol] 9.4 mg/dL 8.6-10.3 [facility] Carbon dioxide, total [Moles /volume] in Serum or PlasmaOrdered By: Gilbert Chauhan on 10-26-2022 CO2 [Moles/Vol] 26.4 mmol/L 21.0-31.0 [facility] Chloride [Moles/volume] in S darwin or PlasmaOrdered By: Gilbert Chauhan on 10-26-2022 Chloride [Moles/Vol] 105 mmol/L 98-107 [facility] Complete Blood Count Auto Di ffon 10-26-2022 Basophils (Bld) [#/Vol] 0.1 10*3/uL Normal 0.0-0.2 [facility] Comment on above: Order Comment: Reaso n for Exam Preprocedural examination Result Comment: PERF ORMED BY: [place] [address] PATHOLOGIST [employer] JOANA SALCIDO M.D. Performed By: #### C BC, BMP #### [facility] [address] Basophils/100 WBC (Bld) 0.8 % Normal . F [facility] Comment on above: Order Comment: Reaso n for Exam Preprocedural examination Performed By: #### C BC, BMP #### [address] Eosinophils (Bld) [#/Vol] 0.1 10*3/uL Normal 0.0-0.45 [facility] Comment on above: Order Comment: Reaso n for Exam Preprocedural examination Performed By: #### C BC, BMP #### [address] Eosinophils/100 WBC (Bld) 1.6 % Normal . [facility] Comment on above: Order Comment: Reaso n for Exam Preprocedural examination Performed By: #### C BC, BMP #### [facility] [address] [place] [address] Erythrocyte distribution width (RBC) [Ratio] 12.3 % Normal 11.9-15.3 [facility] Comment on above: Order Comment: Reaso n for Exam Preprocedural examination Performed By: #### C BC, BMP #### [facility] [address] [place] [address] Hematocrit (Bld) [Volume fraction] 39.7 % Normal 34.0-46.4 [facility] Comment on above: Order Comment: Reaso n for Exam Preprocedural examination Performed By: #### C BC, BMP #### [address] [place] [address] [place] Hemoglobin (Bld) [Mass/Vol] 13.9 g/dL Normal 11.8-15.4 [facility] Comment on above: Order Comment: Reaso n for Exam Preprocedural examination Performed By: #### C BC, BMP #### [address] Lymphocytes (Bld) [#/Vol] 1.5 10*3/uL Normal 1.00-4.8 [facility] Comment on above: Order Comment: Reaso n for Exam Preprocedural examination Performed By: #### C BC, BMP #### [address] Lymphocytes/100 WBC (Bld) 20.0 % Normal . [facility] Comment on above: Order Comment: Reaso n for Exam Preprocedural examination Performed By: #### C BC, BMP #### [address] MCH (RBC) [Entitic mass] 30.9 pg Normal 24.7-34.3 [facility] Comment on above: Order Comment: Reaso n for Exam Preprocedural examination Performed By: #### C BC, BMP #### [address] MCV (RBC) [Entitic vol] 88.2 fL Normal 80-100 F [facility] Comment on above: Order Comment: Reaso n for Exam Preprocedural examination Performed By: #### C BC, BMP #### [address] Mean Corpuscular HGB Conc 35.1 g/dL High 32.0-35.0 [facility] Comment on above: Order Comment: Reaso n for Exam Preprocedural examination Performed By: #### C BC, BMP #### [address] Monocytes (Bld) [#/Vol] 0.6 10*3/uL Normal 0.0-0.8 [facility] Comment on above: Order Comment: Reaso n for Exam Preprocedural examination Performed By: #### C BC, BMP #### [facility] [address] [place] [address] [place] Monocytes/100 WBC (Bld) 7.6 % Normal . F [facility] Comment on above: Order Comment: Reaso n for Exam Preprocedural examination Performed By: #### C BC, BMP #### [facility] [address] [place] [address] [place] Neutrophils (Bld) [#/Vol] 5.1 10*3/uL Normal 1.8-7.7 [facility] Comment on above: Order Comment: Reaso n for Exam Preprocedural examination Performed By: #### C BC, BMP #### [facility] [address] Neutrophils/100 WBC (Bld) 70.0 % Normal . [facility] Comment on above: Order Comment: Reaso n for Exam Preprocedural examination Performed By: #### C BC, BMP #### [address] NRBC% 0.3 /100{WBC} Normal 0-0.5 [facility] Comment on above: Order Comment: Reaso n for Exam Preprocedural examination Performed By: #### C BC, BMP #### [address] Platelet mean volume (Bld) [Entitic vol] 9.7 fL Normal 6.3-10.7 [facility] Comment on above: Order Comment: Reaso n for Exam Preprocedural examination Performed By: #### C BC, BMP #### [facility] [address] [place] [address] [place] Platelets (Bld) [#/Vol] 188 10*3/uL Normal 150-450 [facility] Comment on above: Order Comment: Reaso n for Exam Preprocedural examination Performed By: #### C BC, BMP #### [facility] [address] [place] [address] [place] RBC (Bld) [#/Vol] 4.50 10*6/uL Normal 3.60-5.00 [facility] Comment on above: Order Comment: Reaso n for Exam Preprocedural examination Performed By: #### C JAMEY, ROMI #### [facility] [address] [place] [id number] [place] WBC (Bld) [#/Vol] 7.3 10*3/uL Normal 3.8-11.6 [facility] Comment on above: Order Comment: Reaso n for Exam Preprocedural examination Performed By: #### C JAMEY, BMP #### [facility] [address] [place] [phone] [place] Creatinine [Mass/volume] in Serum or PlasmaOrdered By: Gilbert Chauhan on 10-26-2022 Creatinine [Mass/Vol] 0.91 mg/dL 0.60-1.20 [facility] Eosinophils Auto (Bld) [#/Vo l]Ordered By: Gilbert Chauhan on 10-26-2022 Eosinophils (Bld) [#/Vol] 0.1 10*3/uL 0.0-0.45 [facility] Eosinophils/100 WBC Auto (Bl d)Ordered By: Gilbert Chauhan on 10-26-2022 Eosinophils/100 WBC (Bld) 1.6 % . [facility] Erythrocyte distribution wid th Auto (RBC) [Ratio]Ordered By: Gilbert Chauhan on 10-26-2022 Erythrocyte distribution width (RBC) [Ratio] 12.3 % 11.9-15.3 [facility] Glucose [Mass/volume] in Ser um or PlasmaOrdered By: Gilbert Chauhan on 10-26-2022 Glucose [Mass/Vol] 91 mg/dL 74-109 [facility] Comment on above: ADA recommended refe rence rangeRandom Glucose Reference Range is dependent on time and content of last meal. Glucose of more than 200 mg/dL in a nonstressed, ambulatory subject supports the diagnosis of Diabetes Mellitus. Hematocrit Auto (Bld) [Volum e fraction]Ordered By: Gilbert Chauhan on 10-26-2022 Hematocrit (Bld) [Volume fraction] 39.7 % 34.0-46.4 [facility] Hemoglobin [Mass/volume] in BloodOrdered By: Gilbert Chauhan on 10-26-2022 Hemoglobin (Bld) [Mass/Vol] 13.9 g/dL 11.8-15.4 [facility] Laboratory - Chemistry and C hemistry - challengeOrdered By: Gilbert Chauhan on 10-26-2022 GFR/1.73 sq M.predicted MDRD (S/P/Bld) [Vol rate/Area] mL/min/{1.73_m2} [facility] Leukocytes [#/volume] correc ricardo for nucleated erythrocytes in Blood by Automated counOrdered By: Gilbert Chauhan on 10-26-2022 WBC corrected for nucl RBC Auto (Bld) [#/Vol] 7.3 10*3/uL 3.8-11.6 [facility] Lymphocytes Auto (Bld) [#/Vo l]Ordered By: Gilbert Chauhan on 10-26-2022 Lymphocytes (Bld) [#/Vol] 1.5 10*3/uL 1.00-4.8 [facility] Lymphocytes/100 WBC Auto (Bl d)Ordered By: Gilbert Chauhan on 10-26-2022 Lymphocytes/100 WBC (Bld) 20.0 % . [facility] MCH Auto (RBC) [Entitic mass ]Ordered By: Gilbert Chauhan on 10-26-2022 MCH (RBC) [Entitic mass] 30.9 pg 24.7-34.3 [facility] MCHC Auto (RBC) [Mass/Vol]Or dered By: Gilbert Chauhan on 10-26-2022 MCHC (RBC) [Mass/Vol] 35.1 g/dL 32.0-35.0 [facility] MCV Auto (RBC) [Entitic vol] Ordered By: Gilbert Chauhan on 10-26-2022 MCV (RBC) [Entitic vol] 88.2 fL 80-100 F [facility] Monocytes Auto (Bld) [#/Vol] Ordered By: Gilbert Chauhan on 10-26-2022 Monocytes (Bld) [#/Vol] 0.6 10*3/uL 0.0-0.8 [facility] Monocytes/100 WBC Auto (Bld) Ordered By: Gilbert Chauhan on 03-17-2023 Monocytes/100 WBC (Bld) 7.6 % . F [facility] Neutrophils Auto (Bld) [#/Vo l]Ordered By: Gilbert Chauhan on 10-26-2022 Neutrophils (Bld) [#/Vol] 5.1 10*3/uL 1.8-7.7 [facility] Neutrophils/100 WBC Auto (Bl d)Ordered By: Gilbert Chauhan on 10-26-2022 Neutrophils/100 WBC (Bld) 70.0 % . [facility] No Panel InformationOrdered By: Gilbert Chauhan on 10-26-2022 Pharmacy Creatinine Clearance (Chem N/A [facility] Nucleated erythrocytes [Pres ence] in Blood by Automated countOrdered By: Gilbert Chauhan on 10-26-2022 Nucleated RBC Auto Ql (Bld) 0.3 /100{WBC} 0-0.5 [facility] Platelet mean volume Auto (B ld) [Entitic vol]Ordered By: Gilbert Chauhan on 10-26-2022 Platelet mean volume (Bld) [Entitic vol] 9.7 fL 6.3-10.7 [facility] Platelets Auto (Bld) [#/Vol] Ordered By: Gilbert Chauhan on 10-26-2022 Platelets (Bld) [#/Vol] 188 10*3/uL 150-450 [facility] Potassium [Moles/volume] in Serum or PlasmaOrdered By: Gilbret Chauhan on 10-26-2022 Potassium [Moles/Vol] 3.9 mmol/L 3.5-5.1 [facility] RBC Auto (Bld) [#/Vol]Ordere d By: Gilbert Chauhan on 10-26-2022 RBC (Bld) [#/Vol] 4.50 10*6/uL 3.60-5.00 [facility] Serum or plasma anion gap de terminationOrdered By: Gilbert Chauhan on 10-26-2022 Anion gap [Moles/Vol] 12.5 mmol/L 6.0-15.0 [facility] Sodium [Moles/volume] in Ser um or PlasmaOrdered By: Gilbert Chauhan on 10-26-2022 Sodium [Moles/Vol] 140 mmol/L 136-145 [facility] Urea nitrogen [Mass/volume] in Serum or PlasmaOrdered By: Gilbert Chauhan on 10-26-2022 Urea nitrogen [Mass/Vol] 15 mg/dL 7-25 [facility] WBC Auto (Bld) [#/Vol]Ordere d By: Gilbert Chauhan on 10-26-2022 WBC (Bld) [#/Vol] 7.3 10*3/uL 3.8-11.6 [facility] XR chest 2V*on 10-26-2022 XR chest 2V* [facility] [address] [place] [address] XRay Report Signed Patient: Alejandra Licona MR#: [id number] : 1990 Acct:[id number] Age/Sex: 32 / F ADM Date: 10/26/22 Loc: XD Room: Type: [facility] Attending Dr: Gilbert Chauhan DPM Copies to: Gilbert Chauhan DPM Ordering Provider: Gilbert Chauhan DPM Date of Service: 10/26/22 XR/XR chest 2V*: surgery;Preprocedur al examination Chest 2 views CLINICAL HISTORY: Preop chest for ankle surgery. COMPARISON: None FINDINGS: Heart normal size. Lungs are clear. No free air. XR/XR chest 2V* IMPRESSION: NO ACUTE CARDIOPULMONARY ABNORMALITY. Impression dictated by: Waylon Lares Jr., D.O.10/26/2022 5:47 PM Dictation Location: [place] [address] Transcribed By: [facility] 10/26/221746 Dictated By: Waylon Lares Jr, DO 10/26/221746 Signed By: 10/26/221746 Normal [facility] PREG HCG QUALon 10-09-2022 , QUAL Negative Normal NEGATIVE [facility] Comment on above: Performed By: #### P REG #### [facility] [address] [place] [address] HEAD WO CONon [...] by: DEANN THOMASON Date: 2022-09-21 14:32 Normal [facility] XR ankle LT min 3V*on 2022 XR ankle LT min 3V* [facility] [address] [place] [address] XRay Report Signed Patient: Alejandra Licona MR#: [id number] : 1990 Acct:[id number] Age/Sex: 31 / F ADM Date: 08/23/22 Loc: XDUCLY Room: Type: [facility] Attending Dr: Marla Winslow APRN Copies to: Marla Winslow APRN Ordering Provider: Marla Winslow APRN Date of Service: 08/23/22 XR/XR ankle LT min 3V*: LEFT ANKLE INJURY 3views LEFTankle COMPARISON:None HISTORY: LEFT ankle injury No fracture, dislocation or focal soft tissue abnormality seen. XR/XR ankle LT min 3V* IMPRESSION: No acute findings. Impression dictated by: Carrington Flores M.D.08/23/2022 2:20 PM Dictation Location: [place] [address] Transcribed By: [facility] 08/23/22 1420 Dictated By: Carrington Flores DO 08/23/22 1345 Signed By: 08/23/22 1420 Normal [facility] PREG HCG QUALon 08-21-2022 , QUAL Negative Normal NEGATIVE [facility] Comment on above: Performed By: #### S EDR #### [facility] [address] [place] [address] Dr. Niurka Blount CMV AB IGMon 07-21-2022 Cytomegalovirus (CMV) Ab, IgM <30.0 Normal 0.0-29.9 [facility] Comment on above: Result Comment: Nega tive <30.0 Equivocal 30.0 - 34.9 Positive >34.9 A positive result is generally indicative of acute infection, reactivation or persistent IgM production. Performed By: #### C MVM #### [facility] [address] [place] [address] Dr. Niurka Blount CMV AB, IGGon 07-21-2022 Cytomegalovirus (CMV) Ab, IgG <0.60 Normal 0.00-0.59 [facility] Comment on above: Result Comment: Nega tive <0.60 Equivocal 0.60 - 0.69 Positive >0.69 Performed By: #### C MVIGG #### [facility] [address] [place] [address] Dr. Niurka Blount CBC AUTO DIFFon 07-17-2022 BASO # 0.0 103/ul Normal 0.0-0.1 [facility] Comment on above: Performed By: #### S EDR #### [facility] [address] [place] [address] Dr. Niurka Blount Basophils/100 WBC (Bld) 0.4 % Normal 0.2-2.0 [facility] Comment on above: Performed By: #### S EDR #### [facility] [address] [place] [address] Dr. Niurka Blount EO # 0.0 103/ul Normal 0.0-0.7 [facility] Comment on above: Performed By: #### S EDR #### [facility] [address] [place] [address] Dr. Niurka Blount Eosinophils/100 WBC (Bld) 0.0 % Critically low 0.9-7.0 [facility] Comment on above: Performed By: #### S EDR #### [facility] [address] [place] [address] Dr. Niurka Blount Erythrocyte distribution width (RBC) [Ratio] 11.4 % Normal 11.0-15.0 [facility] Comment on above: Performed By: #### S EDR #### [facility] [address] [place] [address] Dr. Niurka Blount Hematocrit (Bld) [Volume fraction] 40.2 % Normal 36.0-48.0 [facility] Comment on above: Performed By: #### S EDR #### [facility] [address] [address] [address] Niurka Blount Hemoglobin (Bld) [Mass/Vol] 14.5 g/dL Normal 12.0-16.0 [facility] Comment on above: Performed By: #### S EDR #### [facility] [address] [place] [address] Dr. Niurka Blount IG # 0.08 10e3/ul Critically high 0.00-0.03 [facility] Comment on above: Performed By: #### S EDR #### [facility] [address] [place] [address] Dr. Niurka Blount IG % 0.8 % Critically high 0.0-0.5 [facility] Comment on above: Performed By: #### S EDR #### [facility] [address] [place] [address] Dr. Niurka Blount LYMPH # 1.3 103/ul Normal 1.2-3.8 [facility] Comment on above: Performed By: #### S EDR #### [facility] [address] [place] [address] Dr. Niurka Blount Lymphocytes/100 WBC (Bld) 12.0 % Critically low 20.5-60.0 [facility] Comment on above: Performed By: #### S EDR #### [facility] [address] [place] [address] Dr. Niurka Blount MANUAL DIFF REQ NO Normal [facility] Comment on above: Performed By: #### S EDR #### [facility] [address] [place] [address] Dr. Niurka Blount MCH (RBC) [Entitic mass] 30.5 pg Normal 26.7-34.0 [facility] Comment on above: Performed By: #### S EDR #### [facility] [address] [place] [address] Dr. Niurka Blount MCHC (RBC) [Mass/Vol] 36.1 g/dL Critically high 29.9-35.2 [facility] Comment on above: Performed By: #### S EDR #### [facility] [address] [place] [address] Dr. Niurka Blount MCV (RBC) [Entitic vol] 84.6 fL Normal 81.0-99.0 [facility] Comment on above: Performed By: #### S EDR #### [facility] [address] [place] [address] Dr. Niurka Blount MONO # 0.6 103/ul Normal 0.3-0.8 [facility] Comment on above: Performed By: #### S EDR #### [facility] [address] [place] [address] Dr. Niurka Blount Monocytes/100 WBC (Bld) 5.6 % Normal 1.7-12.0 [facility] Comment on above: Performed By: #### S EDR #### [facility] [address] [place] [address] Dr. Niurka Blount NEUT # 8.5 103/ul Critically high 1.4-6.5 [facility] Comment on above: Performed By: #### S EDR #### [facility] [address] [place] [address] Dr. Niurka Blount Neutrophils/100 WBC (Bld) 81.2 % Critically high 43.0-75.0 [facility] Comment on above: Performed By: #### S EDR #### [facility] [address] [place] [address] Dr. Niurka Blount Platelet mean volume (Bld) [Entitic vol] 10.6 fL Normal 9.5-13.5 [facility] Comment on above: Performed By: #### S EDR #### [facility] [address] [place] [address] Dr. Niurka Blount PLT 277 103/ul Normal 150-450 [facility] Comment on above: Performed By: #### S EDR #### [facility] [address] [place] [address] Dr. Niurka Blount RBC 4.75 106/ul Normal 4.20-5.40 [facility] Comment on above: Performed By: #### S EDR #### [facility] [address] [place] [address] Dr. Niurka Blount WBC 10.5 103/ul Normal 4.0-11.0 [facility] Comment on above: Performed By: #### S EDR #### [facility] [address] [place] [address] Dr. Niurka Blount CRPon 07-17-2022 CRP [Mass/Vol] mg/L Normal <=1.0 [facility] Comment on above: Performed By: #### C MVM #### [facility] [address] [place] [address] ABD/PELV W CONon [...] VANNA GARLAND Date: 2022-07-17 18:12 Normal [facility] ER URINE PROFILEon 2 Bilirubin Ql (U) Negative Normal NEGATIVE [facility] Comment on above: Performed By: #### E RUR #### [facility] [address] [place] [address] Dr. Niurka Blount Clarity (U) CLEAR Normal CLEAR [facility] Comment on above: Performed By: #### E RUR #### [facility] [address] [place] [address] Dr. Niurka Blount Color (U) LT. YELLOW Normal YELLOW [facility] Comment on above: Performed By: #### E RUR #### [facility] [address] [place] [address] Dr. Niurka TAFOYAEbony A micrscopic examination will be performed if indicated. Normal [facility] Comment on above: Performed By: #### E RUR #### [facility] [address] [place] [address] Dr. Niurka Blount Glucose Ql (U) Negative Normal NEGATIVE [facility] Comment on above: Performed By: #### E RUR #### [facility] [address] [place] [address] Dr. Niurka Blount Hemoglobin Ql (U) Negative Normal NEGATIVE [facility] Comment on above: Performed By: #### E RUR #### [facility] [address] [place], [place] [id number] Dr. Niurka Blount Ketones Ql (U) Negative Normal NEGATIVE [facility] Comment on above: Performed By: #### E RUR #### [facility] [address] [place] [address] Dr. Niurka Blount LEUKOCYTES Negative Normal NEGATIVE [facility] Comment on above: Performed By: #### E RUR #### [facility] [address] [place] [address] Dr. Niurka Blount Nitrite Ql (U) Negative Normal NEGATIVE [facility] Comment on above: Performed By: #### E RUR #### [facility] [address] [place] [address] Dr. Niurka Blount pH (U) 6.0 [pH] Normal 5-9 [facility] Comment on above: Performed By: #### E RUR #### [facility] [address] [place] [address] Dr. Niurka Blount SPEC GRAVITY 1.010 Normal 1.005-<=1.025 [facility] Comment on above: Performed By: #### E RUR #### [facility] [address] [place] [address] Dr. Niurka Blount UA PROTEIN Negative Normal NEGATIVE/ TRACE [facility] Comment on above: Performed By: #### E RUR #### [facility] [address] [place] [address] Dr. Niurka Blount UR MICRO IND NOT INDICATED Normal [facility] Comment on above: Performed By: #### E RUR #### [facility] [address] [place] [address] Dr. Niurka Blount Urobilinogen Qn (U) 0.2 {David'U}/dL Normal 0.2 - 1. 0 [facility] Comment on above: Performed By: #### E RUR #### [facility] [address] [place] [address] Dr. Niurka Blount LACTATE/LACTIC ACIDon 2021 Lactate [Moles/Vol] 1.6 mmol/L Normal 0.4-1.9 [facility] Comment on above: Performed By: #### E RUR #### [facility] [address] [address] [address] Niurka Blount LIPASEon 07-17-2022 Lipase [Catalytic activity/Vol] 105.0 U/L Normal 73.0-393.0 [facility] Comment on above: Performed By: #### C MVM #### [facility] [address] [address] [address] Niurka Blount PREG HCG QUALon 07-17-2022 , QUAL Negative Normal NEGATIVE [facility] Comment on above: Performed By: #### P REG #### [facility] [address] [place] [address] Dr. Niurka Blount PROF 14(COMP METB)on 022 Albumin [Mass/Vol] 4.4 g/dL Normal 3.4-5.0 [facility] Comment on above: Performed By: #### C MVM #### [facility] [address] [place] [address] Dr. Niurka Blount Albumin/Globulin [Mass ratio] 1.4 {ratio} Normal [facility] Comment on above: Performed By: #### C MVM #### [facility] [address] [place] [address] Dr. Niurka Blount ALP [Catalytic activity/Vol] 82 U/L Normal 46-116 [facility] Comment on above: Performed By: #### C MVM #### [facility] [address] [place] [address] Dr. Niurka Blount ALT [Catalytic activity/Vol] 16 U/L Normal 14-59 [facility] Comment on above: Performed By: #### C MVM #### [facility] [address] [address] [address] Niurka Blount Anion gap [Moles/Vol] 11.6 mmol/L Normal [facility] Comment on above: Performed By: #### C MVM #### [facility] [address] [place] [address] Dr. Niurka Blount AST [Catalytic activity/Vol] 7 U/L Critically low 15-37 [facility] Comment on above: Performed By: #### C MVM #### [facility] [address] [address] [address] Niurka Blount Bilirubin [Mass/Vol] 0.6 mg/dL Normal 0.2-1.0 [facility] Comment on above: Performed By: #### C MVM #### [facility] [address] [address] [address] Niurka Blount Calcium [Mass/Vol] 8.8 mg/dL Normal 8.5-10.1 [facility] Comment on above: Performed By: #### C MVM #### [facility] [address] [address] [address] Niurka Blount Chloride [Moles/Vol] 103 mmol/L Normal 98-107 [facility] Comment on above: Performed By: #### C MVM #### [facility] [address] [place] [address] Dr. Niurka Blount CO2 [Moles/Vol] 24.4 mmol/L Normal 21.0-32.0 [facility] Comment on above: Performed By: #### C MVM #### [facility] [address] [place] [address] Dr. Niurka Blount Creatinine [Mass/Vol] 0.67 mg/dL Normal 0.55-1.02 [facility] Comment on above: Performed By: #### C MVM #### [facility] [address] [place] [address] Dr. Niurka Blount EGFR-AF GEORGIAN >60 Normal >=60 [facility] Comment on above: Performed By: #### C MVM #### [facility] [address] [place] [address] Dr. Niurka Blount EGFR-NON AF GEORGIAN >60 Normal >=60 [facility] Comment on above: Performed By: #### C MVM #### [facility] [address] [place] [address] Dr. Niurka Blount Globulin (S) [Mass/Vol] 3.1 g/dL Normal [facility] Comment on above: Performed By: #### C MVM #### [facility] [address] [address] [address] Niurka Blount Glucose [Mass/Vol] 109 mg/dL Critically high 74-106 [facility] Comment on above: Performed By: #### C MVM #### [facility] [address] [address] [address] Niurka Blount Potassium [Moles/Vol] 4.0 mmol/L Normal 3.5-5.1 [facility] Comment on above: Performed By: #### C MVM #### [facility] [address] [address] [address] Niurka Blount Protein [Mass/Vol] 7.5 g/dL Normal 6.4-8.2 [facility] Comment on above: Performed By: #### C MVM #### [facility] [address] [place] [address] Dr. Niurka Blount Sodium [Moles/Vol] 135 mmol/L Critically low 136-145 [facility] Comment on above: Performed By: #### C MVM #### [facility] [address] [place] [address] Dr. Niurka Blount Urea nitrogen [Mass/Vol] 8.0 mg/dL Normal 7.0-18.0 [facility] Comment on above: Performed By: #### C MVM #### [facility] [address] [place] [address] Dr. Niurka Blount Urea nitrogen/Creatinine [Mass ratio] 11.9 mg/mg Normal [facility] Comment on above: Performed By: #### C MVM #### [facility] [address] [address] [address] Niurka Blount SED RATE WESTERGRENon 2021 SED RATE 3 mm/hr Normal <=20 [facility] Comment on above: Performed By: #### S EDR #### [facility] [address] [place] [address] Dr. Niurka Blount CBC AUTO DIFFon 07-13-2022 BASO # 0.1 103/ul Normal 0.0-0.1 [facility] Comment on above: Performed By: #### S EDR #### [facility] [address] [address] [address] Niurka Blount Basophils/100 WBC (Bld) 0.7 % Normal 0.2-2.0 [facility] Comment on above: Performed By: #### S EDR #### [facility] [address] [place] [address] Dr. Niurka Blount EO # 0.1 103/ul Normal 0.0-0.7 [facility] Comment on above: Performed By: #### S EDR #### [facility] [address] [place] [address] Dr. Niurka Blount Eosinophils/100 WBC (Bld) 1.3 % Normal 0.9-7.0 [facility] Comment on above: Performed By: #### S EDR #### [facility] [address] [place] [address] Dr. Niurka Blount Erythrocyte distribution width (RBC) [Ratio] 11.3 % Normal 11.0-15.0 [facility] Comment on above: Performed By: #### S EDR #### [facility] [address] [place] [address] Dr. Niurka Blount Hematocrit (Bld) [Volume fraction] 40.4 % Normal 36.0-48.0 [facility] Comment on above: Performed By: #### S EDR #### [facility] [address] [place] [address] Dr. Niurka Blount Hemoglobin (Bld) [Mass/Vol] 14.2 g/dL Normal 12.0-16.0 [facility] Comment on above: Performed By: #### S EDR #### [facility] [address] [place] [address] Dr. Niurka lBount IG # 0.02 10e3/ul Normal 0.00-0.03 [facility] Comment on above: Performed By: #### S EDR #### [facility] [address] [place] [address] Dr. Niurka Blount IG % 0.2 % Normal 0.0-0.5 [facility] Comment on above: Performed By: #### S EDR #### [facility] [address] [address] [address] Niurka Blount LYMPH # 1.9 103/ul Normal 1.2-3.8 [facility] Comment on above: Performed By: #### S EDR #### [facility] [address] [address] [address] Niurka Blount Lymphocytes/100 WBC (Bld) 22.1 % Normal 20.5-60.0 [facility] Comment on above: Performed By: #### S EDR #### [facility] [address] [place] [address] Dr. Niurka Blount MANUAL DIFF REQ NO Normal [facility] Comment on above: Performed By: #### S EDR #### [facility] [address] [place] [address] Dr. Niurka Blount MCH (RBC) [Entitic mass] 30.0 pg Normal 26.7-34.0 [facility] Comment on above: Performed By: #### S EDR #### [facility] [address] [place] [address] Dr. Niurka Blount MCHC (RBC) [Mass/Vol] 35.1 g/dL Normal 29.9-35.2 [facility] Comment on above: Performed By: #### S EDR #### [facility] [address] [place] [address] Dr. Niurka Blount MCV (RBC) [Entitic vol] 85.4 fL Normal 81.0-99.0 [facility] Comment on above: Performed By: #### S EDR #### [facility] [address] [place] [address] Dr. Niurka Blount MONO # 0.6 103/ul Normal 0.3-0.8 [facility] Comment on above: Performed By: #### S EDR #### [facility] [address] [address] [address] Niurka Blount Monocytes/100 WBC (Bld) 6.8 % Normal 1.7-12.0 [facility] Comment on above: Performed By: #### S EDR #### [facility] [address] [address] [address] Niurka Blount NEUT # 6.0 103/ul Normal 1.4-6.5 [facility] Comment on above: Performed By: #### S EDR #### [facility] [address] [address] [address] Niurka Blount Neutrophils/100 WBC (Bld) 68.9 % Normal 43.0-75.0 [facility] Comment on above: Performed By: #### S EDR #### [facility] [address] [place] [address] Dr. Niurka Blount Platelet mean volume (Bld) [Entitic vol] 10.7 fL Normal 9.5-13.5 [facility] Comment on above: Performed By: #### S EDR #### [facility] [address] [place] [address] Dr. Niurka Blount PLT 247 103/ul Normal 150-450 [facility] Comment on above: Performed By: #### S EDR #### [facility] [address] [place] [address] Dr. Niurka Blount RBC 4.73 106/ul Normal 4.20-5.40 [facility] Comment on above: Performed By: #### S EDR #### [facility] [address] [place] [address] Dr. Niurka Blount WBC 8.7 103/ul Normal 4.0-11.0 [facility] Comment on above: Performed By: #### S EDR #### [facility] [address] [place] [address] Dr. Niurka Blount FREE T3on 07-13-2022 FREE T3 2.53 pg/mlL Normal 2.18-3.98 [facility] Comment on above: Performed By: #### E RUR #### [facility] [address] [place] [address] Dr. Niurka Blount PROF 14(COMP METB)on 022 Albumin [Mass/Vol] 4.3 g/dL Normal 3.4-5.0 [facility] Comment on above: Performed By: #### E RUR #### [facility] [address] [place] [address] Dr. Niurka Blount Albumin/Globulin [Mass ratio] 1.5 {ratio} Normal [facility] Comment on above: Performed By: #### E RUR #### [facility] [address] [place] [address] Dr. Niurka Blount ALP [Catalytic activity/Vol] 79 U/L Normal 46-116 [facility] Comment on above: Performed By: #### E RUR #### [facility] [address] [place] [address] Dr. Niurka Blount ALT [Catalytic activity/Vol] 14 U/L Normal 14-59 [facility] Comment on above: Performed By: #### E RUR #### [facility] [address] [place] [address] Dr. Niurka Blount Anion gap [Moles/Vol] 11.5 mmol/L Normal [facility] Comment on above: Performed By: #### E RUR #### [facility] [address] [place] [address] Dr. Niurka Blount AST [Catalytic activity/Vol] 10 U/L Critically low 15-37 [facility] Comment on above: Performed By: #### E RUR #### [facility] [address] [place] [address] Dr. Niurka Blount Bilirubin [Mass/Vol] 0.4 mg/dL Normal 0.2-1.0 [facility] Comment on above: Performed By: #### E RUR #### [facility] [address] [place] [address] Dr. Niurka Blount Calcium [Mass/Vol] 8.8 mg/dL Normal 8.5-10.1 [facility] Comment on above: Performed By: #### E RUR #### [facility] [address] [place] [address] Dr. Niurka Blount Chloride [Moles/Vol] 103 mmol/L Normal 98-107 [facility] Comment on above: Performed By: #### E RUR #### [facility] [address] [address] [address] Niurka Blount CO2 [Moles/Vol] 26.2 mmol/L Normal 21.0-32.0 [facility] Comment on above: Performed By: #### E RUR #### [facility] [address] [address] [address] Niurka Blount Creatinine [Mass/Vol] 0.71 mg/dL Normal 0.55-1.02 [facility] Comment on above: Performed By: #### E RUR #### [facility] [address] [address] [address] Niurka Blount EGFR-AF GEORGIAN >60 Normal >=60 [facility] Comment on above: Performed By: #### E RUR #### [facility] [address] [address] [address] Niurka Blount EGFR-NON AF GEORGIAN >60 Normal >=60 [facility] Comment on above: Performed By: #### E RUR #### [facility] [address] [address] [address] Niurka Blount Globulin (S) [Mass/Vol] 2.9 g/dL Normal [facility] Comment on above: Performed By: #### E RUR #### [facility] [address] [address] [address] Niurka Blount Glucose [Mass/Vol] 119 mg/dL Critically high 74-106 [facility] Comment on above: Performed By: #### E RUR #### [facility] [address] [address] [address] Niurka Blount Potassium [Moles/Vol] 3.7 mmol/L Normal 3.5-5.1 [facility] Comment on above: Performed By: #### E RUR #### [facility] [address] [address] [address] Niurka Blount Protein [Mass/Vol] 7.2 g/dL Normal 6.4-8.2 [facility] Comment on above: Performed By: #### E RUR #### [facility] [address] [place] [address] Dr. Niurka Blount Sodium [Moles/Vol] 137 mmol/L Normal 136-145 [facility] Comment on above: Performed By: #### E RUR #### [facility] [address] [place] [address] Dr. Niurka Blount Urea nitrogen [Mass/Vol] 11.0 mg/dL Normal 7.0-18.0 [facility] Comment on above: Performed By: #### E RUR #### [facility] [address] [place] [address] Dr. Niurka Blount Urea nitrogen/Creatinine [Mass ratio] 15.5 mg/mg Normal [facility] Comment on above: Performed By: #### E RUR #### [facility] [address] [place] [address] Dr. Niurka Blount TSHon 07-13-2022 TSH 0.543 uIU/mL Normal 0.358-3.740 [facility] Comment on above: Performed By: #### E RUR #### [facility] [address] [place] [address] Dr. Niurka Blount QUANTIFERON TB GOLD PLUSon 0 05-01-2022 QuantiFERON Criteria Comment [facility] Comment on above: Result Comment: Morris [...] test. Performed By: #### Q NTTB #### [facility] [address] [place] [address] Dr. Niurka Blount QuantiFERON Incubation Incubation performed. Normal [facility] Comment on above: Performed By: #### Q NTTB #### [facility] [address] [place] [address] Dr. Niurka Blount QuantiFERON Mitogen Value >10.00 Normal [facility] Comment on above: Performed By: #### Q NTTB #### [facility] [address] [place] [address] Dr. Niurka Blount QuantiFERON Nil Value 0.02 IU/mL Normal [facility] Comment on above: Performed By: #### Q NTTB #### [facility] [address] [place] [address] Dr. Niurka Blount QuantiFERON TB1 Ag Value 0.02 IU/mL Normal [facility] Comment on above: Performed By: #### Q NTTB #### [facility] [address] [place] [address] Dr. Niurka Blount QuantiFERON TB2 Ag Value 0.02 IU/mL Normal [facility] Comment on above: Performed By: #### Q NTTB #### [facility] [address] [place] [address] Dr. Niurka Blount QuantiFERON-TB Gold Plus Negative Normal Negative [facility] Comment on above: Result Comment: No r esponse to M tuberculosis antigens detected. Infection with M tuberculosis is unlikely, but high risk individuals should be considered for additional testing (ATS/IDSA/CDC Clinical Practice Guidelines, 2017). The reference range is an Antigen minus Nil result of <0.35 IU/mL. Chemiluminescence immunoassay methodology Performed By: #### Q NTTB #### [facility] [address] [place] [address] Dr. Niurka Blount HEP B COREon 04-29-2022 Hep B Core Ab, Tot Negative Normal Negative [facility] Comment on above: Performed By: #### E RUR #### [facility] [address] [place] [address] Dr. Niurka Blount HEP B SURFACE ANTIGEN SCREEN on 04-29-2022 HBsAg Screen Negative Normal Negative [facility] Comment on above: Performed By: #### E RUR #### [facility] [address] [place] [address] Dr. Niurka Blount CBC AUTO DIFFon 04-27-2022 BASO # 0.0 103/ul Normal 0.0-0.1 [facility] Comment on above: Performed By: #### E RUR #### [facility] [address] [place] [address] Dr. Niurka Blount Basophils/100 WBC (Bld) 0.5 % Normal 0.2-2.0 [facility] Comment on above: Performed By: #### E RUR #### [facility] [address] [place] [address] Dr. Niurka Blount EO # 0.1 103/ul Normal 0.0-0.7 [facility] Comment on above: Performed By: #### E RUR #### [facility] [facility] [address] [place] [address] Dr. Niurka Blount Eosinophils/100 WBC (Bld) 1.5 % Normal 0.9-7.0 [facility] Comment on above: Performed By: #### E RUR #### [facility] [address] [place] [address] Dr. Niurka Blount Erythrocyte distribution width (RBC) [Ratio] 11.9 % Normal 11.0-15.0 [facility] Comment on above: Performed By: #### E RUR #### [facility] [address] [place] [address] Dr. Niurka Blount Hematocrit (Bld) [Volume fraction] 39.2 % Normal 36.0-48.0 [facility] Comment on above: Performed By: #### E RUR #### [facility] [address] [place] [address] Dr. Niurka Blount Hemoglobin (Bld) [Mass/Vol] 13.9 g/dL Normal 12.0-16.0 [facility] Comment on above: Performed By: #### E RUR #### [facility] [address] [place] [address] Dr. Niurka Blount IG # 0.03 10e3/ul Normal 0.00-0.03 [facility] Comment on above: Performed By: #### E RUR #### [facility] [address] [place] [address] Dr. Niurka Blount IG % 0.4 % Normal 0.0-0.5 [facility] Comment on above: Performed By: #### E RUR #### [facility] [address] [address] [address] Niurka Blount LYMPH # 2.2 103/ul Normal 1.2-3.8 [facility] Comment on above: Performed By: #### E RUR #### [facility] [address] [address] [address] Niurka Blount Lymphocytes/100 WBC (Bld) 26.3 % Normal 20.5-60.0 [facility] Comment on above: Performed By: #### E RUR #### [facility] [address] [address] [address] Niurka Blount MANUAL DIFF REQ NO Normal [facility] Comment on above: Performed By: #### E RUR #### [facility] [address] [place] [address] Dr. Niurka Blount MCH (RBC) [Entitic mass] 30.5 pg Normal 26.7-34.0 [facility] Comment on above: Performed By: #### E RUR #### [facility] [address] [place] [address] Dr. Niurka Blount MCHC (RBC) [Mass/Vol] 35.5 g/dL Critically high 29.9-35.2 [facility] Comment on above: Performed By: #### E RUR #### [facility] [address] [place] [address] Dr. Niurka Blount MCV (RBC) [Entitic vol] 86.2 fL Normal 81.0-99.0 [facility] Comment on above: Performed By: #### E RUR #### [facility] [address] [place] [address] Dr. Niurka Blount MONO # 0.6 103/ul Normal 0.3-0.8 [facility] Comment on above: Performed By: #### E RUR #### [facility] [address] [place] [address] Dr. Niurka Blount Monocytes/100 WBC (Bld) 7.2 % Normal 1.7-12.0 [facility] Comment on above: Performed By: #### E RUR #### [facility] [address] [place] [address] Dr. Niurka Blount NEUT # 5.4 103/ul Normal 1.4-6.5 [facility] Comment on above: Performed By: #### E RUR #### [facility] [address] [place] [address] Dr. Niurka Blount Neutrophils/100 WBC (Bld) 64.1 % Normal 43.0-75.0 [facility] Comment on above: Performed By: #### E RUR #### [facility] [address] [place] [address] Dr. Niurka Blount Platelet mean volume (Bld) [Entitic vol] 10.4 fL Normal 9.5-13.5 [facility] Comment on above: Performed By: #### E RUR #### [facility] [address] [place] [address] Dr. Niurka Blount PLT 235 103/ul Normal 150-450 [facility] Comment on above: Performed By: #### E RUR #### [facility] [address] [place] [address] Dr. Niurka Blount RBC 4.55 106/ul Normal 4.20-5.40 [facility] Comment on above: Performed By: #### E RUR #### [facility] [address] [place] [address] Dr. Niurka Blount WBC 8.5 103/ul Normal 4.0-11.0 [facility] Comment on above: Performed By: #### E RUR #### [facility] [address] [place] [address] Dr. Niurka Blount CRPon 04-27-2022 CRP [Mass/Vol] mg/L Normal <=1.0 [facility] Comment on above: Performed By: #### C MP, CRP #### [facility] [address] [place] [address] Dr. Niurka Blount PROF 14(COMP METB)on 022 Albumin [Mass/Vol] 4.2 g/dL Normal 3.4-5.0 [facility] Comment on above: Performed By: #### C MP, CRP #### [facility] [address] [address] [address] Niurka Blount Albumin/Globulin [Mass ratio] 1.4 {ratio} Normal [facility] Comment on above: Performed By: #### C MP, CRP #### [facility] [address] [address] [address] Niurka Blount ALP [Catalytic activity/Vol] 80 U/L Normal 46-116 [facility] Comment on above: Performed By: #### C MP, CRP #### [facility] [address] [address] [address] Niurka Blount ALT [Catalytic activity/Vol] 26 U/L Normal 14-59 [facility] Comment on above: Performed By: #### C MP, CRP #### [facility] [address] [address] [address] Niurka Blount Anion gap [Moles/Vol] 11.4 mmol/L Normal [facility] Comment on above: Performed By: #### C MP, CRP #### [facility] [address] [address] [address] Niurka Blount AST [Catalytic activity/Vol] 13 U/L Critically low 15-37 [facility] Comment on above: Performed By: #### C MP, CRP #### [facility] [address] [address] [address] Niurka Blount Bilirubin [Mass/Vol] 0.4 mg/dL Normal 0.2-1.0 [facility] Comment on above: Performed By: #### C MP, CRP #### [facility] [address] [address] [address] Niurka Blount Calcium [Mass/Vol] 8.8 mg/dL Normal 8.5-10.1 [facility] Comment on above: Performed By: #### C MP, CRP #### [facility] [address] [address] [address] Niurka Blount Chloride [Moles/Vol] 106 mmol/L Normal 98-107 [facility] Comment on above: Performed By: #### C MP, CRP #### [facility] [address] [address] [address] Niurka Blount CO2 [Moles/Vol] 26.5 mmol/L Normal 21.0-32.0 [facility] Comment on above: Performed By: #### C MP, CRP #### [facility] [address] [place] [address] Dr. Niurka Blount Creatinine [Mass/Vol] 0.80 mg/dL Normal 0.55-1.02 [facility] Comment on above: Performed By: #### C MP, CRP #### [facility] [address] [address] [address] Niurka Blount EGFR-AF GEORGIAN >60 Normal >=60 [facility] Comment on above: Performed By: #### C MP, CRP #### [facility] [address] [place] [address] Dr. Niurka Blount EGFR-NON AF GEORGIAN >60 Normal >=60 [facility] Comment on above: Performed By: #### C MP, CRP #### [facility] [address] [place] [address] Dr. Niurka Blount Globulin (S) [Mass/Vol] 3.0 g/dL Normal [facility] Comment on above: Performed By: #### C MP, CRP #### [facility] [address] [place] [address] Dr. Niurka Blount Glucose [Mass/Vol] 113 mg/dL Critically high 74-106 [facility] Comment on above: Performed By: #### C MP, CRP #### [facility] [address] [place] [address] Dr. Niurka Blount Potassium [Moles/Vol] 3.9 mmol/L Normal 3.5-5.1 [facility] Comment on above: Performed By: #### C MP, CRP #### [facility] [address] [place] [address] Dr. Niurka Blount Protein [Mass/Vol] 7.2 g/dL Normal 6.4-8.2 [facility] Comment on above: Performed By: #### C MP, CRP #### [facility] [address] [address] [address] Niurka Blount Sodium [Moles/Vol] 140 mmol/L Normal 136-145 [facility] Comment on above: Performed By: #### C MP, CRP #### [facility] [address] [address] [address] Niurka Blount Urea nitrogen [Mass/Vol] 9.0 mg/dL Normal 7.0-18.0 [facility] Comment on above: Performed By: #### C MP, CRP #### [facility] [address] [address] [address] Niurka Blount Urea nitrogen/Creatinine [Mass ratio] 11.2 mg/mg Normal [facility] Comment on above: Performed By: #### C MP, CRP #### [facility] [address] [address] [address] Niurka Blount SED RATE [facility] 2021 SED RATE 2 mm/hr Normal <=20 [facility] Comment on above: Performed By: #### E RUR #### [facility] [address] [place] [address] Dr. Niurka Blount MRI CSPINE WO CONon [...] by: DEANN THOMASON Date: 2022-04-06 11:21 Normal [facility] XR CSPINE MIN 4 VIEWSon 01-12 [...] ISABEL CHAVEZ Date: 2022-02-08 17:24 Normal [facility] Albumin [Mass/volume] in Ser um or PlasmaOrdered By: Piter Maharaj on 09-18-2021 Albumin [Mass/Vol] 4.3 g/dL 3.2-5.5 [facility] Basophils Auto (Bld) [#/Vol] Ordered By: Piter Maharaj on 09-18-2021 Basophils (Bld) [#/Vol] 0.0 10*3/uL 0.0-0.2 [facility] Basophils/100 WBC Auto (Bld) Ordered By: Piter Maharaj on 09-18-2021 Basophils/100 WBC (Bld) 0.7 % . F [facility] C reactive protein [Mass/vol ume] in Serum or PlasmaOrdered By: Piter Maharaj on 09-18-2021 CRP [Mass/Vol] 1.1 mg/dL 0.0-1.0 [facility] Creatinine and Glomerular fi ltration rate.predicted panel (S/P/Bld)Ordered By: Piter Maharaj on 09-18-2021 Creatinine [Mass/Vol] 0.73 mg/dL 0.44-1.03 [facility] Eosinophils Auto (Bld) [#/Vo l]Ordered By: Piter Maharaj on 09-18-2021 Eosinophils (Bld) [#/Vol] 0.1 10*3/uL 0.0-0.45 [facility] Eosinophils/100 WBC Auto (Bl d)Ordered By: Piter Maharaj on 09-18-2021 Eosinophils/100 WBC (Bld) 1.9 % . [facility] Erythrocyte distribution wid th Auto (RBC) [Ratio]Ordered By: Piter Maharaj on 09-18-2021 Erythrocyte distribution width (RBC) [Ratio] 12.0 % 11.9-15.3 [facility] Erythrocyte sedimentation ra te by Photometric methodOrdered By: Piter Maharaj on 09-18-2021 ESR Photometric method (Bld) [Velocity] 3 mm/hr 0-19 [facility] Estimated glomerular filtrat ion rate (GFR) non- AmericanOrdered By: Piter Maharaj on 09-18-2021 GFR/1.73 sq M.predicted among non-blacks MDRD (S/P/Bld) [Vol rate/Area] > 60 mL/Min [facility] Globulin Calc (S) [Mass/Vol] Ordered By: Piter Maharaj on 09-18-2021 Globulin (S) [Mass/Vol] 2.2 g/dL F [facility] Hematocrit Auto (Bld) [Volum e fraction]Ordered By: Piter Maharaj on 09-18-2021 Hematocrit (Bld) [Volume fraction] 42.2 % 34.0-46.4 [facility] Hemoglobin [Mass/volume] in BloodOrdered By: Piter Maharaj on 09-18-2021 Hemoglobin (Bld) [Mass/Vol] 14.6 g/dL 11.8-15.4 [facility] Laboratory - Hematology and Cell countsOrdered By: Piter Maharaj on 09-18-2021 Nucleated RBC/100 WBC (Bld) [Ratio] 0.1 % 0-0.5 [facility] Leukocytes [#/volume] in Blo od by Automated countOrdered By: Piter Maharaj on 09-18-2021 WBC (Bld) [#/Vol] 6.6 10*3/uL 4.5-11.0 [facility] Lymphocytes Auto (Bld) [#/Vo l]Ordered By: Piter Maharaj on 09-18-2021 Lymphocytes (Bld) [#/Vol] 2.3 10*3/uL 1.00-4.8 [facility] Lymphocytes/100 WBC Auto (Bl d)Ordered By: Piter Maharaj on 09-18-2021 Lymphocytes/100 WBC (Bld) 34.0 % . [facility] MCH Auto (RBC) [Entitic mass ]Ordered By: Piter Maharaj on 09-18-2021 MCH (RBC) [Entitic mass] 30.0 pg 24.7-34.3 [facility] MCHC Auto (RBC) [Mass/Vol]Or dered By: Piter Maharaj on 09-18-2021 MCHC (RBC) [Mass/Vol] 34.6 g/dL 32.0-35.0 [facility] MCV Auto (RBC) [Entitic vol] Ordered By: Piter Maharaj on 09-18-2021 MCV (RBC) [Entitic vol] 86.6 fL 80-100 F [facility] Monocytes Auto (Bld) [#/Vol] Ordered By: Piter Maharaj on 09-18-2021 Monocytes (Bld) [#/Vol] 0.5 10*3/uL 0.0-0.8 [facility] Monocytes/100 WBC Auto (Bld) Ordered By: Piter Maharaj on 09-18-2021 Monocytes/100 WBC (Bld) 8.2 % . F [facility] Neutrophils Auto (Bld) [#/Vo l]Ordered By: Piter Maharaj on 09-18-2021 Neutrophils (Bld) [#/Vol] 3.7 10*3/uL 1.8-7.7 [facility] Neutrophils/100 WBC Auto (Bl d)Ordered By: Piter Maharaj on 09-18-2021 Neutrophils/100 WBC (Bld) 55.2 % . [facility] No Panel InformationOrdered By: Piter Maharaj on 09-18-2021 Estimated GFR () > 60 mL/Min [facility] Comment on above: GFR estimated refere nce range: According to KDOQI guidelines, <60 ml/min/1.73m2 is sufficient to diagnose a patient with chronic kidney disease. Pharmacy Creatinine Clearance (Chem 102.56 [facility] Platelet mean volume Auto (B ld) [Entitic vol]Ordered By: Piter Maharaj on 09-18-2021 Platelet mean volume (Bld) [Entitic vol] 8.8 fL 6.3-10.7 [facility] Platelets Auto (Bld) [#/Vol] Ordered By: Piter Maharaj on 09-18-2021 Platelets (Bld) [#/Vol] 222 10*3/uL 150-450 [facility] Protein [Mass/volume] in Ser um or PlasmaOrdered By: Piter Maharaj on 09-18-2021 Protein [Mass/Vol] 6.5 g/dL 6.1-7.9 [facility] RBC Auto (Bld) [#/Vol]Ordere d By: Piter Maharaj on 09-18-2021 RBC (Bld) [#/Vol] 4.87 10*6/uL 3.60-5.00 [facility] Serum or plasma alanine rodriguez otransferase measurement without P-5'-P (enzymatic activiOrdered By: Piter Maharaj on 09-18-2021 ALT No additional P-5'-P [Catalytic activity/Vol] 23 U/L 10-60 [facility] Serum or plasma albumin/glob ulin mass ratioOrdered By: Piter Maharaj on 09-18-2021 Albumin/Globulin [Mass ratio] 2.0 {ratio} [facility] Serum or plasma alkaline susan sphatase measurement (enzymatic activity/volume)Ordered By: Piter Maharaj on 09-18-2021 ALP [Catalytic activity/Vol] 84 U/L 32-92 [facility] Serum or plasma aspartate am inotransferase measurement (enzymatic activity/volume)Ordered By: Piter Maharaj on 09-18-2021 AST [Catalytic activity/Vol] 20 U/L 10-42 [facility] Serum or plasma calcium toni urement (mass/volume)Ordered By: Piter Maharaj on 09-18-2021 Calcium [Mass/Vol] 9.3 mg/dL 8.2-10.2 [facility] Serum or plasma chloride carina surement (moles/volume)Ordered By: Piter Maharaj on 09-18-2021 Chloride [Moles/Vol] 103 mmol/L 95-114 [facility] Serum or plasma glucose toni urement (mass/volume)Ordered By: Piter Maharaj on 09-18-2021 Glucose [Mass/Vol] 80 mg/dL 70-100 [facility] Comment on above: ADA recommended refe rence rangeRandom Glucose Reference Range is dependent on time and content of last meal. Glucose of more than 200 mg/dL in a nonstressed, ambulatory subject supports the diagnosis of Diabetes Mellitus. Serum or plasma potassium me asurement (moles/volume)Ordered By: Piter Maharaj on 09-18-2021 Potassium [Moles/Vol] 4.0 mmol/L 3.5-5.1 [facility] Serum or plasma sodium measu rement (moles/volume)Ordered By: Piter Maharaj on 09-18-2021 Sodium [Moles/Vol] 139 mmol/L 136-146 [facility] Serum or plasma total biliru bin measurement (mass/volume)Ordered By: Piter Maharaj on 09-18-2021 Bilirubin [Mass/Vol] 0.8 mg/dL 0.3-1.2 [facility] Serum or plasma total carbon dioxide measurement (moles/volume)Ordered By: Piter Maharaj on 09-18-2021 CO2 [Moles/Vol] 27.0 mmol/L 22.0-30.0 [facility] Serum or plasma urea nitroge n measurement (mass/volume)Ordered By: Piter Maharaj on 09-18-2021 Urea nitrogen [Mass/Vol] 14 mg/dL 9-23 [facility] ESR Westergren method (Bld) [Velocity]on 04-11-2020 ESR (Bld) [Velocity] 2 mm/h 0-32 [facility] Comment on above: Performed at: [address] [id number] Director: Gerry Martinez PhD, Phone: [phone] Laboratory - Hematology and Cell countson 04-11-2020 WBC (Bld) [#/Vol] 5.0 10*3/uL 4.5-11.0 [facility] Vital Signs Date Time Vital Sign Value Performing Clinician Facility 09-17-2023 13:30-0500 Body height 157.48 cm Piter Nicko Other [facility] Other 09-17-2023 13:30-0500 Body mass index (BMI) [Ratio] 23.34 kg/m2 Piter Nicko Other [facility] Other 09-17-2023 13:30-0500 Body weight 57.88 kg Piter Nicko Other [facility] Other 04-04-2023 10:40-0400 Body height 157.48 cm Dutch Pereyra Other [facility] Other 04-04-2023 10:40-0400 Body mass index (BMI) [Ratio] 23.41 kg/m2 Dutch Pereyra Other [facility] Other 04-04-2023 10:40-0400 Body weight 58.06 kg Dutch Pereyra Other [facility] Other 04-04-2023 10:40-0400 Diastolic blood pressure 66 mm[Hg] Dutch Pereyra Other [facility] Other 04-04-2023 10:40-0400 Systolic blood pressure 104 mm[Hg] Dutch Pereyra Other [facility] Other 03-12-2023 13:15-0400 Body height 157.48 cm Piter Maharaj Other [facility] Other 03-12-2023 13:15-0400 Body mass index (BMI) [Ratio] 24.32 kg/m2 Piter Maharaj Other [facility] Other 03-12-2023 13:15-0400 Body weight 60.33 kg Piter Maharaj Other [facility] Other 03-12-2023 13:15-0400 Diastolic blood pressure 80 mm[Hg] Piter Maharaj Other [facility] Other 03-12-2023 13:15-0400 Systolic blood pressure 119 mm[Hg] Piter Maharaj Other [facility] Other 09-11-2022 14:15-0500 Body height 157.48 cm Piter Maharaj Other [facility] Other 09-11-2022 14:15-0500 Body mass index (BMI) [Ratio] 28.16 kg/m2 Piter Maharaj Other [facility] Other 09-11-2022 14:15-0500 Body weight 69.85 kg Piter Maharaj Other [facility] Other 09-11-2022 14:15-0500 Diastolic blood pressure 71 mm[Hg] Piter Maharaj Other [facility] Other 09-11-2022 14:15-0500 Systolic blood pressure 100 mm[Hg] Piter Nicko Other [facility] Other 07-25-2022 11:45-0500 Body height 157.48 cm Piter Maharaj Other [facility] Other 07-25-2022 11:45-0500 Body mass index (BMI) [Ratio] 27.43 kg/m2 Piter Maharaj Other [facility] Other 07-25-2022 11:45-0500 Body weight 68.04 kg Piter Maharaj Other [facility] Other 07-25-2022 11:45-0500 Diastolic blood pressure 94 mm[Hg] Piter Maharaj Other [facility] Other 07-25-2022 11:45-0500 Systolic blood pressure 132 mm[Hg] Piter Maharaj Other [facility] Other 06-25-2022 15:25-0500 Diastolic blood pressure 83 mm[Hg] II Stoney Giles Work Phone: [facility] 06-25-2022 15:25-0500 Heart rate 60 /min II Stoney Giles Work Phone: [facility] 06-25-2022 15:25-0500 Systolic blood pressure 137 mm[Hg] II Stoney Giles Work Phone: [facility] 05-29-2022 14:06-0400 Body temperature 97.7 [degF] II Stoney Giles Work Phone: [facility] 05-29-2022 14:06-0400 Respiratory rate 18 /min II Stoney Giles Work Phone: [facility] 05-29-2022 14:06-0400 SaO2% (BldA) [Mass fraction] 95 % II Stoney Giles Work Phone: [facility] 05-23-2022 11:45-0400 Body height 157.48 cm Piter Nicko Other [facility] Other 05-23-2022 11:45-0400 Body mass index (BMI) [Ratio] 28.35 kg/m2 Piter Maharaj Other [facility] Other 05-23-2022 11:45-0400 Body weight 70.31 kg Piter Maharaj Other [facility] Other 04-25-2022 12:00-0400 Body height 157.48 cm Piter Maharaj Other [facility] Other 04-25-2022 12:00-0400 Body mass index (BMI) [Ratio] 28.16 kg/m2 Piter Nicko Other [facility] Other 04-25-2022 12:00-0400 Body weight 69.85 kg Piter Maharaj Other [facility] Other 10-30-2021 14:48-0400 Body height 157.48 cm II Stoney Giles Work Phone: [facility] 10-30-2021 14:48-0400 Body mass index (BMI) [Ratio] 29.8 kg/m2 II Stoneyshayy Giles Work Phone: [facility] 10-30-2021 14:48-0400 Body weight 73.93 kg II Stoneyshayy Giles Work Phone: [facility] 07-24-2021 11:45-0500 Body height 157.48 cm Piter Maharaj Other [facility] Other 07-24-2021 11:45-0500 Body mass index (BMI) [Ratio] 29.26 kg/m2 Piter Altamiranoack Other [facility] Other 07-24-2021 11:45-0500 Body weight 72.58 kg Piter Maharaj Other [facility] Other Encounters Encounter Date Encounter Type Care Provider Facility Start: 09-30-2023 End: 09-30-2023 ambulatory NOAH B APLING Not Available Start: 09-17-2023 End: 09-17-2023 ambulatory Piter Lamasormack Other [facility] Other Start: 09-17-2023 Office outpatient visit 15 minutes Piter Maharaj [facility] Start: 09-16-2023 End: 09-16-2023 ambulatory NOAH B APLING Not Available Start: 09-11-2023 End: 09-12-2023 ambulatory NOAH B APLING Not Available Start: 09-11-2023 End: 09-11-2023 ambulatory STONEY GILES Not Available Start: 08-16-2023 End: 08-16-2023 ambulatory JOHN SHUKLA Not Available Start: 07-18-2023 End: 07-18-2023 ambulatory JAVED LEVIN Not Available Start: 04-04-2023 End: 04-04-2023 ambulatory Dutch Pereyra Other [place] [employer] Other Start: 04-04-2023 Office outpatient new 30 minutes Dutch Pereyra [facility] Start: 04-03-2023 End: 04-03-2023 ambulatory Dutch Pereyra Facility:[facility] Start: 04-03-2023 End: 04-03-2023 Patient encounter procedure II Stoney Giles Work Phone: [facility] Work Phone: Start: 03-12-2023 End: 03-12-2023 ambulatory Piter Maharaj Other [facility] Other Start: 03-12-2023 Office outpatient visit 15 minutes Piter Maharaj [facility] Start: 01-01-[address] STONEY GILES Facilit y:[facility] Start: 12-18-2022 End: 12-19-2022 ambulatory NARENDRANATH LAKSHMIPATHY . Facility:[facility] Start: 12-11-2022 End: 12-11-2022 ambulatory ISABELLA VAUGHN Facility:[facility] Start: 12-04-2022 End: 12-04-2022 ambulatory STONEY ASKEW Facility:[facility] Start: 11-07-2022 End: 11-08-2022 ambulatory Gilbert Chauhan Facility:[facility] Start: 10-26-2022 End: 10-26-2022 ambulatory Gilbert Chauhan Facility:[facility] Start: 10-26-2022 End: 10-26-2022 ambulatory II Stoney Giles Work Phone: [facility] Work Phone: Start: 10-26-2022 End: 10-26-2022 Patient encounter procedure II Stoney Giles Work Phone: [facility] Work Phone: Start: 10-23-2022 End: 10-24-2022 ambulatory NARENDRANATH LAKSHMIPATHY . Facility:[facility] Start: 10-09-2022 End: 10-09-[address] ALEENA ANAND . Facility:[facility] Start: 09-21-2022 End: 09-21-[address] DEANN THOMASON Facility:[facility] Start: 2022 End: 09-14-2022 ambulatory YESSI ARBOLEDA . Facility:[facility] Start: 09-11-2022 End: 09-11-2022 ambulatory Piter Maharaj Other [facility] Other Start: 09-11-2022 Office outpatient visit 15 minutes Piter Maharaj [facility] Start: 08-23-2022 End: 08-23-2022 ambulatory Marla Winslow Facility:[facility] Start: 08-23-2022 End: 08-23-2022 ambulatory LUZ Giles Work Phone: [facility] Work Phone: Start: 08-23-2022 End: 08-23-2022 Patient encounter procedure II Stoney Giles Work Phone: [facility] Work Phone: Start: 08-21-2022 End: 08-21-[address] ALEENA ANAND . Facility:[facility] Start: 08-20-2022 End: 08-20-2022 ambulatory Piter Maharaj Other [facility] Other Start: 08-20-2022 Telephone encounter Piter moctezuma [facility] Start: 08-08-2022 End: 08-08-2022 ambulatory Piter Maharaj Other [facility] Other Start: 08-08-2022 Telephone encounter Piter moctezuma [facility] Start: 07-31-2022 End: 08-01-[address] ALEENA ANAND . Facility:[facility] Start: 07-30-2022 End: 07-30-2022 ambulatory Piter Maharaj Other [facility] Other Start: 07-30-2022 Telephone encounter Piter moctezuma [facility] Start: 07-25-2022 End: 07-25-2022 ambulatory Piter Maharaj Other [facility] Other Start: 07-25-2022 Patient encounter procedure Piter Maharaj [facility] Start: 07-20-2022 End: 07-21-[address] Jamel MAHARAJ Facility:[facility] Start: 07-18-2022 End: 07-18-2022 ambulatory Piter Maharaj Other [facility] Other Start: 07-18-2022 Telephone encounter Piter moctezuma [facility] Start: 07-17-2022 End: 07-17-2022 ambulatory RAE HIRSCH . [email or web address] Other Start: 07-17-2022 Telephone encounter Piter moctezuma [facility] Start: 07-13-2022 End: 07-14-[address] STONEY GILES [facility] [employer] Other Start: 07-13-2022 Telephone encounter Piter moctezuma [facility] Start: 07-03-2022 End: 07-03-2022 ambulatory Piter Maharaj Other [place] [employer] Other Start: 07-03-2022 Telephone encounter Piter moctezuma [facility] Start: 06-25-2022 End: 06-25-2022 ambulatory Stoney Giles Facility:[facility] Start: 06-25-2022 Registered Recurring LUZ Giles Work Phone: [facility] Work Phone: Start: 05-23-2022 End: 05-23-2022 ambulatory Piter Maharaj Other [facility] Other Start: 05-23-2022 Office outpatient visit 15 minutes Piter Maharaj [facility] Start: 04-27-2022 End: 04-28-[address] Jamel MAHARAJ Facility:[facility] Start: 04-25-2022 End: 04-25-2022 ambulatory Piter Maharaj Other [place] [employer] Other Start: 04-25-2022 Office outpatient visit 25 minutes Piter Maharaj [facility] Start: 04-25-2022 Telephone encounter Piter moctezuma [facility] Start: 04-05-2022 End: 04-06-[address] STONEY GILES Facility:[facility] Start: 02-08-2022 End: 02-09-[address] STONEY GILES Facility:[facility] Start: 01-15-2022 End: 01-15-2022 ambulatory Piter Maharaj Other [facility] Other Start: 01-15-2022 Telephone encounter Piter moctezuma [facility] Start: 07-24-2021 End: 07-24-2021 ambulatory Piter Maharaj Other [facility] Other Start: 07-24-2021 Office outpatient visit 15 minutes Piter Maharaj [facility] Start: 06-29-2021 End: 06-29-2021 ambulatory Piter Maharaj Other [facility] Other Start: 06-29-2021 Telephone encounter Piter moctezuma [facility] Procedures Date Procedure Procedure Detail Performing Clinician Start: 04-03-2023 X-ray of cervical spine II Stoney Giles Work Phone: Start: 10-26-2022 Plain chest X-ray II Da katt Giles Work Phone: Start: 08-23-2022 X-ray of left ankle II Stoney Giles Work Phone: Immunizations Immunization Date Immunization Notes Care Provider Fa [facility] 12-21-2014 tetanus toxoid, reduced diphtheria toxoid, and acellular pertussis vaccine, adsorbed Piter Maharaj Other [facility] Other Payers Date Payer Category Payer Medicaid [id number] 2019 Self-pay [id number] 2019 Unknown [id number] 1990 Unknown [id number] 2.16.840.1.127574.3.579.2.727 1990 Unknown [id number] .16.840.1.557788.3.579.2.593 1990 Unknown [id number] 2.16.840.1.725056.3.579.2.593 1990 Unknown [id number] 2.16.840.1.714782.3.579.2.593 1990 Unknown [id number] 2.16.840.1.410273.3.579.2.593 1990 Unknown [id number] 2.16.840.1.786718.3.579.2.593 1990 Unknown [id number] 2.16.840.1.547194.3.579.2.593 1990 Unknown [id number] 2.16.840.1.738226.3.579.2.593 1990 Unknown [id number] 2.16.840.1.692721.3.579.2.593 1990 Unknown [id number] 2.16.840.1.885036.3.579.2.593 1990 Unknown [id number] 2.16.840.1.973676.3.579.2.593 1990 Unknown [id number] 2.16.840.1.550352.3.579.2.593 1990 Unknown [id number] 2.16.840.1.531500.3.579.2.593 1990 Unknown [id number] 2.16.840.1.527423.3.579.2.593 1990 Unknown [id number] 2.16.840.1.214077.3.579.2.593 1990 Unknown [id number] 2.16.840.1.312285.3.579.2.593 1990 Unknown [id number] 2.16.840.1.099047.3.579.2.593 1990 Unknown [id number] 2.16.840.1.479036.3.579.2.1259 1990 Unknown [id number] 2.16.840.1.139646.3.579.2.1259 1990 Unknown [id number] 2.16.840.1.537680.3.579.2.9 1990 Unknown [id number] 2.16.840.1.839941.3.579.2.1259 1990 Unknown [id number] 2.16.840.1.796897.3.579.2.9 1990 Unknown [id number] 2.16.840.1.611128.3.579.2.9 1990 Unknown [id number] 2.16.840.1.946172.3.579.2.9 1990 Unknown [id number] 2.16.840.1.861405.3.579.2.1259 1959 Unknown [id number] 2.16.840.1.872595.[address] [facility] [id number] Unknown [id number] 2.16.840.1.306416.3.579.2.531 Social History Date Type Detail Facility Sex Assigned At [facility] Other Start: 12-23-2018 End: 12-23-2018 Tobacco smoking status [facility] Smoker (finding) [facility] Start: 1990 Sex Assigned At Female F [facility] Clinical Notes 07-24-2021 to 09-17-2023 Note Date & Type Note Facility 09-17-2023 Evaluation note Encounter Date Diagnosis Assessment Notes Sep, Crohns disease (ICD-10 - K50.90) Patient reports that she is doing well on Stelara and will continue with this therapy Patient reports that she has had recent labs done and we will obtain records release for this RTO 6 months [place] [employer] Other 08-24-2023 Evaluation note* Encounter Date Diagnosis Assessment Notes Treatment Notes Treatment Clinical Notes Mar, Neck pain (ICD-10 - M54.2) [...] 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 Also, of note, she uses [facility] infrequently. She takes half a pill at a time, when she does use it, and she uses less than 14 pills in a month. Her OARRS report was reconciled. She does report the medicine does improve her quality of life, level of functioning and sleep pattern.[facility] [id number] Note CONSULTATION CONSULTATION DATE: 2022 This is [...] self-massage which she finds beneficial. Medications include [facility] 5/325, half pill p.r.n. as needed because [...] be followed in the office there after.[facility] [id number] Evaluation note* Encounter Date Diagnosis Assessment Notes Treatment Notes Treatment Clinical Notes Aug, Crohns disease (ICD-10 - K50.90) Continue Stelara without change Labs and follow up in 6 months [facility] Other 12-20-2022 NoteCONSULTATION CONSULTATION DATE: 07/31/2022 CHIEF [...] currently takes Aleve two tablets a day, [facility] 5/325 on a p.r.n. basis. She tries [...] C4-5 and C6-7. CC: Stoney Giles M.D.[facility] [id number] Evaluation note* Encounter Date Diagnosis Assessment Notes Treatment Notes Treatment Clinical Notes Jul, Crohns disease (ICD-10 - K50.90) CONTINUE STELARA DIRECTED DECREASE PREDNISONE TO 40 MG DAILY FOR 7 DAYS, THEN DECREASE BY 10 MG WEEKLY RTO 6 WEEKS [facility] Other 12-07-2022 Evaluation note* Encounter Date Diagnosis Assessment Notes Treatment Notes Treatment Clinical Notes Jul, Crohns disease (ICD-10 - K50.90) [facility] Other 10-12-2022 Evaluation note* Encounter Date Diagnosis Assessment Notes Treatment Notes Treatment Clinical Notes May, Crohns disease (ICD-10 - K50.90) May, Diarrhea (ICD-10 - R19.7) May, Abdominal cramping (ICD-10 - R10.9) [facility] Other 09-14-2022 Evaluation note* Encounter Date Diagnosis Assessment Notes Treatment Notes Treatment Clinical Notes Apr, Crohns disease (ICD-10 - K50.90) PT HAS TRIED AND FAILED HUMIRA AND ENTYVIO START PPW FOR SKYRIZI RTO 4 WEEKS Apr, Diarrhea (ICD-10 - R19.7) Apr, Abdominal cramping (ICD-10 - R10.9) [facility] Other 06-30-2022 NotePROCEDURE: XR FOOT RT 2V COMPARISON: None. HISTORY: Pain in right foot FINDINGS: BONES:No acute fracture or dislocation. Mild enthesopathic spurring of the calcaneus at the Achilles insertion SOFT TISSUES:Negative. No visible soft tissue swelling. EFFUSION:None visible. OTHER: Negative. IMPRESSION: No acute abnormality Electronically authenticated by: ISABEL CHAVEZ Date: 2022-02-08 17:18[facility]12-13-2021 Evaluation note* Encounter Date Diagnosis Assessment [...] 6 WEEKS, LABS ORDERED AT THIS TIME. [facility] Other Evaluation noteNo InformationNort [employer] Other Evaluation noteNo assessment information available [facility] Work Phone: [facility] general Narrative - Reported* Type Description Date Medical History shegalla Surgical History tonsillectomy Hospitalization History childbirth [facility] Other [facility] Narrative - Reported* Type Description Date Medical History shegalla Surgical History tonsillectomy Surgical History [facility] Hospitalization History childbirth [facility] Other [facility] Narrative - Reported* Type Description Date Medical History shegalla Medical History anxiety Medical History Crohns disease Surgical History tonsillectomy Surgical History [facility] Hospitalization History childbirth Hospitalization History see above surg. hx. [facility] Other Chief Complaint and Reason for Visit [...] TO HAVE LABS AND START PAPERWORK [facility].06/21 StelaraClinicalClinical Acute IllnessPREDNISONEClinical Acute IllnessClinical Acute MedicinePT ADDED ON PER LRM. PT WAS TO HAVE LABS DRAWN.PREDNISONE [id number] STELARA INJECTIONSTELARA SHOTPT HERE FOR 3 MONTH FOLLOW UP [facility]. PT WAS STARTED ON STELARA.Patient here for 6 month follow up (labs not done)referred by Dr. Giles cervical stenosis of spinePatient here for 6 month follow up Care Teams (unrecognized sec tion and content) [...] section and content) DATE CREATED AUTHOR 11/18/2022 [facility] DATE CREATED AUTHOR AUTHOR'S ORGANIZ ATION 12/23/2022 [facility] DATE CREATED AUTHOR AUTHOR'S ORGANIZ ATION 04/04/2023 [facility] DATE CREATED AUTHOR AUTHOR'S ORGANIZ ATION 10/01/2023 [facility] FOR RECORDS PERTAINING TO PATIENTS WHO [...] BE BASED ON THE PRIMARY CLINICAL RECORDS. [employer] provides no warranty or guarantee of the accuracy or completeness of information in this document.
[2023-10-08 15:08] LABS: Age Gdln ACOG Testing Note (.); HPV Aptima Negative (Negative); IGP, Aptima HPV, rfx 16/18,45 Note (.)
== END 2023-10-03 20:49 | disposition home or self-care (01) ==
LOC: LAB 20:48
PROVIDERS: PCP Internal Medicine; Visit Provider Obstetrics & Gynecology
DX: Z01.419 Encounter for gynecological examination (general) (routine) without abnormal findings (principal)
CPT/HCPCS: 87624; G0145

== ENCOUNTER 2023-11-26 13:22 | Outpatient (OUT) | payer MEDICAID, SELFPAY ==
--- NOTE | 2023-11-26 | CONS_ITS ---
CONSULTATION DATE: 11/26/2023 TO: Dr. Giles HISTORY: Patient returns today complaining of 3/10 pain in her neck occurring bilaterally, described as a deep aching pain, occasionally becoming quite sharp, increased with activities such as performing pushing/pulling maneuvers, lifting maneuvers. She feels most comfortable in the semi-recumbent position. She denies any change in bowel and bladder habits or sensorimotor change in the upper extremities. CURRENT MEDICATION: Includes [place] 5 mg p.o. daily, Xanax 0.5 mg daily p.r.n., and Skelaxin 400 mg at h.s. She reports that she does not notice much difference with the Skelaxin. Her BERNIE on today?s visit was 18%. EXAMINATION: Notable for the patient having no clinical radiculopathy or myelopathy involving her upper extremities on today?s visit. She had markedly improved myofascial spasm of the cervical paravertebral muscles. She appears to have some residual myofascial spasm involving the right trapezius at approximately the C3 and the T1 levels, approximately 2 cm from midline, but her spasm overall appeared to be markedly improved compared to previous visits. Her range of motion also appeared to be improved with much less pain. Despite the patient reporting that her neck pain still feels the same. IMPRESSION: Our impression is patient has improvement in her myofascial spasm of the right trapezius. RECOMMENDATIONS: I have asked her to discontinue [place]. I have increased the Skelaxin to 400 mg pills, two pills at bedtime as tolerated; physical therapy for dry needling at the above mentioned levels, and to follow up with us in the office in 4-6 weeks? time. As part of providing excellent, safe, comprehensive care, the following was completed at our patient's visit: 1. A medication reconciliation and review to ensure accurate knowledge of current/active medications, including asking our patients to inform us about any [id number] medications or herbal remedies/nutritional supplements/alternative remedies. 2. A review to specifically ensure our patients have had annual screening for: elevated body mass index (BMI, see intake chart for exact total), tobacco use, screening for depression, and screening for unhealthy alcohol use. When screening is concerning, patients are provided with education and the specific recommendation to discuss the concerning health issue and treatment options with their primary care provider. RIKA
--- OUTSIDE RECORDS SUMMARY | 2023-11-26 13:49 | XMS_ITS | CCD ---
Author Organization [facility] Care Team Providers Care Detasseling Crew Supervisor Name Role Phone Piter Maharaj Unavailable LUZ Giles Primary Care Provider MD Piter Maharaj Attending Provider AIDAN Winslow Attending Provider [phone] LUZ Giles Primary Care Provider AIDAN [place] Attending Provider JOSE Chauhan Attending Provider Gilbert Chauhan Admitting Unavailable Gilbert Chauhan Attending Unavailable LUZ Giles Primary Care Provider DR STONEY GILES Primary Care Unavailable LAKSHMIPATHY ., BRADATH Attending Ileana vailable LAKSHMIPATHY ., NARENDHAYESATH Admitting Ileana vailable GRECHNY ., PA NOHEMI Consulting UnavailGuanakito Wilde, DR WESLEY Attending Unavailable MIGUEL ., DR WESLEY Admitting Unavailable DR STONEY GILES Primary Care Unavailable VANNA GARLAND Consulting Unavailable DR DEANN THOMASON Consulting Unavailable DIAB ., GABRIELA Attending Unavailable DIAB ., GABRIELA Admitting Unavailable DR STONEY GILES Primary Care Unavailable DIAB ., GABRIELA Consulting Unavailable KIKA ., DR ALEENA Bustamante Consulting Unavailable DR STONEY GILES Primary Care Unavailable KIKA ., DR ALEENA Bustamante Attending Unavailable KIKA ., DR ALEENA Bustamante Admitting Unavailable LAKSHMIPATHY ., CINTIA Consulting Ileana vailable DR STONEY GILES Primary Care Unavailable LAKSHMIPATHY ., NARENDHAYESATH Attending Ileana vailable HALKER .FRANCOIS Admitting Unavailable NKECHI .YESSI Consulting Unavailable DR STONEY GILES Primary Care Unavailable ANAND ., DR ALEENA Bustamante Attending Unavailable ANAND ., DR ALEENA Bustamante Admitting Unavailable CAMPOS, DR Jamel Alaniz Consulting Unavailable GILES, DR MURILLO Primary Care Unavailable CAMPOS, DR Jamel Alaniz Attending Unavailable CAMPOS, DR Jamel Alaniz Admitting Unavailable GILES, DR [...] Attending Unavailable GILES, DR MURILLO Admitting Unavailable CAMPOS, DR Jamel Alaniz Consulting Unavailable GILES, DR MURILLO Primary Care Unavailable CAMPOS, DR Jamel Alaniz Attending Unavailable CAMPOS, DR Jamel Alaniz Admitting Unavailable ANAND ., DR ALEENA Bustamante Consulting Unavailable CHAN, DR MURILLO Primary Care Unavailable ANAND ., DR ALEENA Bustamante Attending Unavailable ANAND ., DR ALEENA Bustamante Admitting Unavailable LAKSHMIPATHY ., CINTIA Consulting Ileana vailable CHAN, DR MURILLO Primary Care Unavailable LAKSHMIPATHY ., CINTIA Attending Ileana vailable LAKSHMIPATHY ., CINTIA Admitting Ileana vailable STONEY ASKEW Consulting Unavailable CHAN, DR MURILLO Primary Care Unavailable LAKSHMIPATHY ., CINTIA Attending Ileana vailable LAKSHMIPATHY ., CINTIA Admitting Ileana vailable ISABELLA VAUGHN Consulting Unavailable LAKSHMIPATHY ., CINTIA Consulting Ileana vailable ISABELLA VAUGHN Consulting Unavailable CHAN, DR MURILLO Primary Care Unavailable LAKSHMIPATHY ., CINTIA Attending Ileana vailable LAKSHMIPATHY ., NARENDHAYESATH Admitting Ileana vailable LAKSHMIPATHY ., CINTIA Consulting Ileana vailable ANAND ., DR ALEENA Bustamante Consulting Unavailable CHAN, DR MURILLO Primary Care Unavailable ANAND ., DR ALEENA Bustamante Attending Unavailable ANAND ., DR ALEENA Bustamante Admitting Unavailable Chan, Stoney Primary Care Unavailable Campos, Piter Alaniz Admitting Unavailabl e Campos, Piter Alaniz Attending Unavailabl e Goldy, Marla Mccullough Admitting Unavailable Marla Winslow Attending Unavailable Giles, Stoney Primary Care Unavailable Gilbert Chauhan Admitting Unavailable Gilbert Chauhan Attending Unavailable Stoney Giles Primary Care Unavailable Dutch Pereyra Admitting Unavailable Dutch Pereyra Attending Unavailable Stoney Giles Primary Care Unavailable Dutch Pereyra Unavailable LUZ Giles Primary Care Provider MD Dutch Pereyra Attending Provider [phone] JOHN SHUKLA Attending Unavailable STONEY GILES Attending Unavailable APLING, NOAH Escalera Attending Unavailable APLING, NOAH Escalera Referring Unavailable APLING, NOAH Escalera Attending Unavailable APLING, NOAH Escalera Attending Unavailable JAVED LEVIN Attending Unavailable APLINGNOAH Referring Unavailable FADUMO PEREZ Attending Unavailable STONEY GILES Referring Unavailable PADMINI RUANO Attending Unavailable JAVED LEVIN Attending Unavailable Allergies Allergy Classification Reported Allergen(s) Allergy Type Date of Onset Reaction(s) Facility (9 sources) Adhesive agent; Translations: [Adhesive] Allergy to substance 6 Unknown Reaction, Unknown [facility] (14 sources) Latex; Translations: [Latex] Allergy to substance 9 Unknown Reaction, Unknown [facility] (5 sources) BANDAIDS; Translations: [BANDAIDS] Allergy to substance 9 Unknown Reaction [facility] Medications Current Medications Medication Drug Class(es) Dates [...] 09-24-2022 Episodic Other aftercare (1 source) 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 COMPARISON: Shoulder radiographs September 11, 2023 FINDINGS: The acromioclavicular joint is intact. The acromion is curved. Coracoclavicular ligament intact. Trace nonspecific subacromial/subdeltoi d bursal fluid. The supraspinatus, infraspinatus, subscapularis, and teres minor tendons are intact. No atrophy or fatty infiltration of the rotator cuff musculature. The intra-articular and extra-articular long head biceps tendon is intact. The biceps tendon resides within the bicipital groove. No labral tear identified. No well-defined or measurable cartilage defect. No glenohumeral joint effusion . IMPRESSION: Rotator cuff and labrum are intact. Trace nonspecific subacromial/subdeltoi d bursal fluid may represent mild bursitis. ELECTRONICALLY SIGNED BY: Damon Dhillon, DO Normal Not Available Alanine aminotransferase [En zymatic activity/volume] in Serum or PlasmaOrdered By: Piter Maharaj on 04-03-2023 ALT [Catalytic activity/Vol] 8 U/L 7-52 [facility] Albumin [Mass/volume] in Ser um or Plasma by Bromocresol green (BCG) dye binding methoOrdered By: Piter Maharaj on 04-03-2023 Albumin BCG dye [Mass/Vol] 4.6 g/dL 3.5-5.7 [facility] Alkaline phosphatase [Enzyma tic activity/volume] in Serum or PlasmaOrdered By: Piter Maharaj on 04-03-2023 ALP [Catalytic activity/Vol] 50 U/L 34-104 [facility] Aspartate aminotransferase [ Enzymatic activity/volume] in Serum or PlasmaOrdered By: Piter Maharaj on 04-03-2023 AST [Catalytic activity/Vol] 10 U/L 13-39 [facility] Basophils Auto (Bld) [#/Vol] Ordered By: Piter Maharaj on 04-03-2023 Basophils (Bld) [#/Vol] 0.1 10*3/uL 0.0-0.2 [facility] Basophils/100 WBC Auto (Bld) Ordered By: Piter Maharaj on 04-03-2023 Basophils/100 WBC (Bld) 0.9 % . [facility] Bilirubin.total [Mass/volume ] in Serum or PlasmaOrdered By: Piter Maharaj on 04-03-2023 Bilirubin [Mass/Vol] 0.6 mg/dL 0.3-1.0 [facility] C reactive protein [Mass/vol ume] in Serum or PlasmaOrdered By: Piter Maharaj on 04-03-2023 CRP [Mass/Vol] < 0.5 mg/dL 0.0-0.5 [facility] C-Reactive Proteinon 023 CRP [Mass/Vol] mg/L Normal 0.0-0.5 [facility] Comment on above: Order Comment: Reaso n for Exam Crohns disease Result Comment: PERF ORMED BY: [place] [address] PATHOLOGIST ELECTRON MICROSCOPIST JOANA SALCIDO M.D. Performed By: #### C RP, CMP #### [facility] [address] Calcium [Mass/volume] in Ser um or PlasmaOrdered By: Piter Maharaj on 04-03-2023 Calcium [Mass/Vol] 8.8 mg/dL 8.6-10.3 [facility] Carbon dioxide, total [Moles /volume] in Serum or PlasmaOrdered By: Piter Maharaj on 04-03-2023 CO2 [Moles/Vol] 25.0 mmol/L 21.0-31.0 [facility] Chloride [Moles/volume] in S darwin or PlasmaOrdered By: Piter Maharaj on 04-03-2023 Chloride [Moles/Vol] 110 mmol/L 98-107 [facility] Complete Blood Count Auto Di ffon 04-03-2023 Basophils (Bld) [#/Vol] 0.1 10*3/uL Normal 0.0-0.2 [facility] Comment on above: Order Comment: Reaso n for Exam Crohns disease Performed By: #### E SR, CBC #### [facility] [address] [place] [address] [place] Basophils/100 WBC (Bld) 0.9 % Normal . [facility] Comment on above: Order Comment: Reaso n for Exam Crohns disease Performed By: #### E SR, CBC #### [facility] [address] [place] [address] [place] Eosinophils (Bld) [#/Vol] 0.1 10*3/uL Normal 0.0-0.45 [facility] Comment on above: Order Comment: Reaso n for Exam Crohns disease Performed By: #### E SR, CBC #### [facility] [address] [place] [address] [place] Eosinophils/100 WBC (Bld) 1.3 % Normal . [facility] Comment on above: Order Comment: Reaso n for Exam Crohns disease Performed By: #### E SR, CBC #### [address] Erythrocyte distribution width (RBC) [Ratio] 12.1 % Normal 11.9-15.3 [facility] Comment on above: Order Comment: Reaso n for Exam Crohns disease Performed By: #### E SR, CBC #### [facility] [address] [place] [address] Hematocrit (Bld) [Volume fraction] 39.4 % Normal 34.0-46.4 [facility] Comment on above: Order Comment: Reaso n for Exam Crohns disease Performed By: #### E SR, CBC #### [address] Hemoglobin (Bld) [Mass/Vol] 13.5 g/dL Normal 11.8-15.4 [facility] Comment on above: Order Comment: Reaso n for Exam Crohns disease Performed By: #### E SR, CBC #### [facility] [address] [place] [address] Lymphocytes (Bld) [#/Vol] 1.9 10*3/uL Normal 1.00-4.8 [facility] Comment on above: Order Comment: Reaso n for Exam Crohns disease Performed By: #### E SR, CBC #### [facility] [address] [place] [address] [place] Lymphocytes/100 WBC (Bld) 31.9 % Normal . [facility] Comment on above: Order Comment: Reaso n for Exam Crohns disease Performed By: #### E SR, CBC #### [address] MCH (RBC) [Entitic mass] 30.4 pg Normal 24.7-34.3 [facility] Comment on above: Order Comment: Reaso n for Exam Crohns disease Performed By: #### E SR, CBC #### [facility] [address] MCV (RBC) [Entitic vol] 88.7 fL Normal 80-100 [facility] Comment on above: Order Comment: Reaso n for Exam Crohns disease Performed By: #### E SR, CBC #### [facility] [address] [place] [address] Mean Corpuscular HGB Conc 34.2 g/dL Normal 32.0-35.0 [facility] Comment on above: Order Comment: Reaso n for Exam Crohns disease Performed By: #### E SR, CBC #### [address] Monocytes (Bld) [#/Vol] 0.5 10*3/uL Normal 0.0-0.8 [facility] Comment on above: Order Comment: Reaso n for Exam Crohns disease Performed By: #### E SR, CBC #### [address] Monocytes/100 WBC (Bld) 7.5 % Normal . [facility] Comment on above: Order Comment: Reaso n for Exam Crohns disease Performed By: #### E SR, CBC #### [address] Neutrophils (Bld) [#/Vol] 3.5 10*3/uL Normal 1.8-7.7 [facility] Comment on above: Order Comment: Reaso n for Exam Crohns disease Performed By: #### E SR, CBC #### [place] [address] [place] Neutrophils/100 WBC (Bld) 58.4 % Normal . [facility] Comment on above: Order Comment: Reaso n for Exam Crohns disease Performed By: #### E SR, CBC #### [facility] [address] [place] [address] NRBC% 0.2 /100{WBC} Normal 0-0.5 [facility] Comment on above: Order Comment: Reaso n for Exam Crohns disease Performed By: #### E SR, CBC #### [facility] [address] Platelet mean volume (Bld) [Entitic vol] 9.3 fL Normal 6.3-10.7 [facility] Comment on above: Order Comment: Reaso n for Exam Crohns disease Performed By: #### E SR, CBC #### [facility] [address] Platelets (Bld) [#/Vol] 189 10*3/uL Normal 150-450 [facility] Comment on above: Order Comment: Reaso n for Exam Crohns disease Performed By: #### E SR, CBC #### [address] RBC (Bld) [#/Vol] 4.44 10*6/uL Normal 3.60-5.00 [facility] Comment on above: Order Comment: Reaso n for Exam Crohns disease Performed By: #### E SR, CBC #### [address] WBC (Bld) [#/Vol] 6.1 10*3/uL Normal 3.8-11.6 [facility] Comment on above: Order Comment: Reaso n for Exam Crohns disease Performed By: #### E SR, CBC #### [facility] [address] [place] [address] Comprehensive Metabolic Pane bob 04-03-2023 Albumin [Mass/Vol] 4.6 g/dL Normal 3.5-5.7 [facility] Comment on above: Order Comment: Reaso n for Exam Crohns disease Performed By: #### C RP, CMP #### [address] Albumin/Globulin [Mass ratio] 2.3 {ratio} Normal [facility] Comment on above: Order Comment: Reaso n for Exam Crohns disease Performed By: #### C RP, CMP #### [address] ALP [Catalytic activity/Vol] 50 U/L Normal 34-104 [facility] Comment on above: Order Comment: Reaso n for Exam Crohns disease Performed By: #### C RP, CMP #### [facility] [address] ALT [Catalytic activity/Vol] 8 U/L Normal 7-52 [facility] Comment on above: Order Comment: Reaso n for Exam Crohns disease Performed By: #### C RP, CMP #### [facility] [address] Anion gap [Moles/Vol] 8.9 mmol/L Normal 6.0-15.[address] [facility] Comment on above: Order Comment: Reaso n for Exam Crohns disease Performed By: #### C RP, CMP #### [facility] [address] [place] [address] AST [Catalytic activity/Vol] 10 U/L Low 13-39 [facility] Comment on above: Order Comment: Reaso n for Exam Crohns disease Performed By: #### C RP, CMP #### [facility] [address] Bilirubin [Mass/Vol] 0.6 mg/dL Normal 0.3-1.0 [facility] Comment on above: Order Comment: Reaso n for Exam Crohns disease Performed By: #### C RP, CMP #### [facility] [address] Calcium [Mass/Vol] 8.8 mg/dL Normal 8.6-10.3 [facility] Comment on above: Order Comment: Reaso n for Exam Crohns disease Performed By: #### C RP, CMP #### [facility] [address] [place] [address] [place] Chloride [Moles/Vol] 110 mmol/L High 98-107 [facility] Comment on above: Order Comment: Reaso n for Exam Crohns disease Performed By: #### C RP, CMP #### [facility] [address] [place] [address] [place] CO2 [Moles/Vol] 25.0 mmol/L Normal 21.0-31.0 [facility] Comment on above: Order Comment: Reaso n for Exam Crohns disease Performed By: #### C RP, CMP #### [facility] [address] Creatinine [Mass/Vol] 0.89 mg/dL Normal 0.60-1.[address] [facility] Comment on above: Order Comment: Reaso n for Exam Crohns disease Performed By: #### C RP, CMP #### [facility] [address] [place] [address] [place] GFR/1.73 sq M.predicted MDRD (S/P/Bld) [Vol rate/Area] mL/min/{1.73_m2} Normal [facility] Comment on above: Order Comment: Reaso n for Exam Crohns disease Performed By: #### C RP, CMP #### [address] Globulin (S) [Mass/Vol] 2.0 g/dL Normal [facility] Comment on above: Order Comment: Reaso n for Exam Crohns disease Performed By: #### C RP, CMP #### [address] Glucose [Mass/Vol] 91 mg/dL Normal 70-100 [facility] Comment on above: Order Comment: Reaso n for Exam Crohns disease Result Comment: [place] Glucose Reference Range is dependent on time and content of last meal. Glucose of more than 200 mg/dL in a nonstressed, ambulatory subject supports the diagnosis of Diabetes Mellitus. ADA recommended reference range Performed By: #### C RP, CMP #### [place] [address] [place] Potassium [Moles/Vol] 3.9 mmol/L Normal 3.5-5.[address] [facility] Comment on above: Order Comment: Reaso n for Exam Crohns disease Performed By: #### C RP, CMP #### [place] [address] [place] Protein [Mass/Vol] 6.6 g/dL Normal 6.4-8.9 [facility] Comment on above: Order Comment: Reaso n for Exam Crohns disease Performed By: #### C RP, CMP #### [facility] [address] [place] [address] Sodium [Moles/Vol] 140 mmol/L Normal 136-145 [facility] Comment on above: Order Comment: Reaso n for Exam Crohns disease Performed By: #### C RP, CMP #### [facility] [address] Urea nitrogen [Mass/Vol] 12 mg/dL Normal 7-25 [facility] Comment on above: Order Comment: Reaso n for Exam Crohns disease Performed By: #### C RP, CMP #### [address] Creatinine [Mass/volume] in Serum or PlasmaOrdered By: Piter Maharaj on 04-03-2023 Creatinine [Mass/Vol] 0.89 mg/dL 0.60-1.[address] [facility] Eosinophils Auto (Bld) [#/Vo l]Ordered By: Piter Maharaj on 04-03-2023 Eosinophils (Bld) [#/Vol] 0.1 10*3/uL 0.0-0.45 [facility] Eosinophils/100 WBC Auto (Bl d)Ordered By: Piter Maharaj on 04-03-2023 Eosinophils/100 WBC (Bld) 1.3 % . [facility] Erythrocyte Sedimentation Ra sri 04-03-2023 ESR (Bld) [Velocity] mm/h Normal 0-19 [facility] Comment on above: Order Comment: Reaso n for Exam Crohns disease Result Comment: PERF ORMED BY: [place] [address] PATHOLOGIST ELECTRON MICROSCOPIST JOANA SALCIDO M.D. Performed By: #### E SR, CBC #### [address] Erythrocyte distribution wid th Auto (RBC) [Ratio]Ordered By: Piter Maharaj on 04-03-2023 Erythrocyte distribution width (RBC) [Ratio] 12.1 % 11.9-15.3 [facility] Erythrocyte sedimentation ra te by Photometric methodOrdered By: Piter Maahraj on 04-03-2023 ESR Photometric method (Bld) [Velocity] < 1 mm/hr 0-19 [facility] Globulin Calc (S) [Mass/Vol] Ordered By: Piter Maharaj on 04-03-2023 Globulin (S) [Mass/Vol] 2.0 g/dL [facility] Glucose [Mass/volume] in Ser um or PlasmaOrdered By: Piter Maharaj on 04-03-2023 Glucose [Mass/Vol] 91 mg/dL 70-100 [facility] Comment on above: ADA recommended refe rence rangeRandom Glucose Reference Range is dependent on time and content of last meal. Glucose of more than 200 mg/dL in a nonstressed, ambulatory subject supports the diagnosis of Diabetes Mellitus. Hematocrit Auto (Bld) [Volum e fraction]Ordered By: Piter Maharaj on 04-03-2023 Hematocrit (Bld) [Volume fraction] 39.4 % 34.0-46.4 [facility] Hemoglobin [Mass/volume] in BloodOrdered By: Piter Maharaj on 04-03-2023 Hemoglobin (Bld) [Mass/Vol] 13.5 g/dL 11.8-15.4 [facility] Leukocytes [#/volume] correc ricardo for nucleated erythrocytes in Blood by Automated counOrdered By: Piter Maharaj on 04-03-2023 WBC corrected for nucl RBC Auto (Bld) [#/Vol] 6.1 10*3/uL 3.8-11.6 [facility] Lymphocytes Auto (Bld) [#/Vo l]Ordered By: Piter Maharaj on 04-03-2023 Lymphocytes (Bld) [#/Vol] 1.9 10*3/uL 1.00-4.8 [facility] Lymphocytes/100 WBC Auto (Bl d)Ordered By: Piter Maharaj on 04-03-2023 Lymphocytes/100 WBC (Bld) 31.9 % . [facility] MCH Auto (RBC) [Entitic mass ]Ordered By: Piter Maharaj on 04-03-2023 MCH (RBC) [Entitic mass] 30.4 pg 24.7-34.3 [facility] MCHC Auto (RBC) [Mass/Vol]Or dered By: Piter Maharaj on 04-03-2023 MCHC (RBC) [Mass/Vol] 34.2 g/dL 32.0-35.[address] [facility] MCV Auto (RBC) [Entitic vol] Ordered By: Piter Maharaj on 04-03-2023 MCV (RBC) [Entitic vol] 88.7 fL 80-100 [facility] Monocytes Auto (Bld) [#/Vol] Ordered By: Piter Maharaj on 04-03-2023 Monocytes (Bld) [#/Vol] 0.5 10*3/uL 0.0-0.8 [facility] Monocytes/100 WBC Auto (Bld) Ordered By: Piter Maharaj on 04-03-2023 Monocytes/100 WBC (Bld) 7.5 % . [facility] Neutrophils Auto (Bld) [#/Vo l]Ordered By: Piter Maharaj on 04-03-2023 Neutrophils (Bld) [#/Vol] 3.5 10*3/uL 1.8-7.7 [facility] Neutrophils/100 WBC Auto (Bl d)Ordered By: Piter Maharaj on 04-03-2023 Neutrophils/100 WBC (Bld) 58.4 % . [facility] No Panel InformationOrdered By: Piter Maharaj on 04-03-2023 Estimated GFR (CKD-EPI) > 60.0 mL/Min [facility] Pharm[facility] Creatinine Clearance (Chem N/A [facility] Nucleated erythrocytes [Pres ence] in Blood by Automated countOrdered By: Piter Maharaj on 04-03-2023 Nucleated RBC Auto Ql (Bld) 0.2 /100{WBC} 0-0.5 [facility] Platelet mean volume Auto (B ld) [Entitic vol]Ordered By: Piter Maharaj on 04-03-2023 Platelet mean volume (Bld) [Entitic vol] 9.3 fL 6.3-10.7 [facility] Platelets Auto (Bld) [#/Vol] Ordered By: Piter Maharaj on 04-03-2023 Platelets (Bld) [#/Vol] 189 10*3/uL 150-450 [facility] Potassium [Moles/volume] in Serum or PlasmaOrdered By: Piter Maharaj on 04-03-2023 Potassium [Moles/Vol] 3.9 mmol/L 3.5-5.[address] [facility] Protein [Mass/volume] in Ser um or PlasmaOrdered By: Piter Maharaj on 04-03-2023 Protein [Mass/Vol] 6.6 g/dL 6.4-8.9 [facility] RBC Auto (Bld) [#/Vol]Ordere d By: Piter Maharaj on 04-03-2023 RBC (Bld) [#/Vol] 4.44 10*6/uL 3.60-5.00 [facility] Serum or plasma albumin/glob ulin mass ratioOrdered By: Piter Maharaj on 04-03-2023 Albumin/Globulin [Mass ratio] 2.3 {ratio} [facility] Serum or plasma anion gap de terminationOrdered By: Piter Maharaj on 04-03-2023 Anion gap [Moles/Vol] 8.9 mmol/L 6.0-15.[address] [facility] Sodium [Moles/volume] in Ser um or PlasmaOrdered By: Piter Maharaj on 04-03-2023 Sodium [Moles/Vol] 140 mmol/L 136-145 [facility] Urea nitrogen [Mass/volume] in Serum or PlasmaOrdered By: Piter Maharaj on 04-03-2023 Urea nitrogen [Mass/Vol] 12 mg/dL 7-25 [facility] WBC Auto (Bld) [#/Vol]Ordere d By: Piter Maharaj on 04-03-2023 WBC (Bld) [#/Vol] 6.1 10*3/uL 3.8-11.6 [facility] XR cervical spine w flex/ext on 04-03-2023 XR cervical spine w flex/ext [place] [id number] XRay Report Signed Patient: Pat Licona MR#: [id number] 819 : 1990 Acct:[id number] Age/Sex: 32 / F ADM Date: 04/03/23 Loc: XD Room: Type: [facility] CLI Attending Dr: Dutch Pereyra MD Copies to: [...] Brian Muhammad M.D.04/03/2023 7:24 PM Dictation Location: [place] [address] Transcribed By: [facility] 04/03/231923 Dictated By: Brian Muhammad II, MD 04/03/231921 Signed By: 04/03/231923 [facility] PREG HCG QUALon 12-11-2022 , QUAL Negative Normal NEGATIVE [facility] Comment on above: Performed By: #### C MVM #### [facility] [address] [place] [address] Dr. Niurka Blount PREG HCG QUALon 12-04-2022 , QUAL Negative Normal NEGATIVE [facility] Comment on above: Performed By: #### P REG #### [facility] [address] [place] [address] Dr. Niurka Blount Coding Summary.on 11-17-2022 Coding Summary. CD:[id number] W w+PGhlYWQ+WS0RVAZbP41 bdJKkqI5sR1FSQWfTUnue VBJVKAqCUzIfgvVdSG7ma XNjZXJu IC8+MT3mAVCrTtyzlJMqv 0Z4fGQ0M70epk6bJLobaS Y1KPIeBiGpxqefk3scjGn 6IDcuNmluOyBt USMabM77DBZ2jP64Ec11z SDejXFip4mxgWs9MpUsZB GuHPH9fFktGHabc8BoYHI pH56taLOnj6M2 EKBuyRpbzLZeSwXmpXF9m A9sZGfpqxqjk0qtmeleEp e7zk51bDPmn4U7gXA4X8R nswA7GQQzlEVb OncedGHHcU2rnroyq2pqv hqwAvWkIRCqUKr7MLp5MS EooKqeWoUkTB88XUN3INX kdeMyR8QtDXKf xYnvFcO5u2G5Dd1WL2HNL oosE3FVJXAGCXnfxOD+PC 99mw64X9XlBlvmVcb6PKM sHLU9cXG8bI2t CFLnVTiiv8A6iCG1P7Ztm sAsjj5xa7bzNZQqDWalU9 1tnMVjm9K4CUDbrIX9EEX qfCsuBiRqkH07 Oyc+AIOwoNufu8HwYdxjv 8ksy2jdqCq2UgyuNKBive VulDvuPKX2e3WfRt0mDSL oqOY5gAS1qS9w MdChJbT6XEhcX004LdCzy IOwOcvnD29dT0OnsAZ+PH NwDii2IWJyiPzuYF9kI1G hZGRpbmctbGVm hRdeUA2cDPLlinuqJSLcf M1nOPFxT8n7AdUgBsI1YP alV7CzNILxefvxQe20kC5 lLdOaIhQ1NNpa C8SvydW5PBEisZRgBJleE FZ2D72gd3G2WTXnXONvPR G2zSM3wN4zdOgpbbpkqJD mdDsgdmVydGlj VNyaAAgkV433XHNbgCtmM kNvZGluZyBEYXRlOiAgMD QvMDgvMjAyMzwvdGQ+PHR eSKM9gUjeCNOi lQIfQTdsUk1kzQgveDbfQ Y9yVOEewqyhAZXzbA0rTQ QkuSPbmZvrEH2tNHWwlmd qa900UeSnNDP5 SPNyjDGnP3LysI9xBxVaC EGpUBIqP4RngNJoABhcZ2 70TWxxFpQ6YWJxzlHqG8H sLWFsaWduOiB0 n0G6Hc3Qj9YebbjkR9Gyp DBzCfWxEhmgAUf1Y0MyYt wvdHI+UB66BRNwQV88TBe 3HVT8eQqaYJoz AAFpD3LuxH5gZuApCLUkX GRkOyc+PHRhYmxlIHdpZH RoPScxMDAlJyBzdHlsZT0 lDz6qLNMlYDQz dYyswTIpObYkz9aiMVYmU ZwvJK4tbMagX4NfyJM4EA Whw5y3Os35B62iV0NlePF +NZRsrER6aVY9 mZ1xNcEyXfX6MRzmL012B mGwaZRkJeajg2zoj8mhxP h1QgQ8MFMxmsWgaWzqYBR 6m0AgZs80D68z IHdpZHRoPSIxNSUiIHZhb Kcamm9maZ4fKt0+PGNvbC B4kEU1kH2wPfBuImY0ODk xX149PbIkpODl Plzzu3ivi8udqZv5FgNmE PKlpoHmmZijLZV6a9GvGs 91E1NoqDjvd2XmLdw5dw3 3dVZhz2V9rHX6 E9KpRYWgfrcphFBvqLcwN M7mKQCuphpvYIVlnW6cAC JeY3o4EuClEyZ1BRgyX1J qqjX3QDOthIXu CMItaYPTuR9fofvat7gwi bayWpEnETQtHVm0OTf8ZE ZhrTkhSwAxEVP8YkB2KXT 3eNUheE7qeHhk fxgxtI4rJie+AKE2fUKdr EOUNY1dGqmbrSU+PHRkIH P1zKamKXucAAIzyS2vOXT tN4b2ZqZkQjH8 GFylF0HizsX8YTFvnTHxX GImwKQEnI8oqronx4flju gnKjSiNTXiDBz9RPe7TXC saWduOiBsZWZ0 PrO7WBH8aMBelE6ahQrut mzgjX0wZqi+QmlydGggRG S7ENt1Q3GtDnr8ORPdyHx ySU5kyLXsTXwf Sx4jiFrloSloTT1tMWXtn aavd906YjJct8xlTSBgwZ XtPUmsPZX2J86wo6V1KUG cDCYlDCY4zVI0 dB1wcZlktzwwdQKcaWscy vIneSpiXKbyQJueL783AV HkdTlxEoYkCMy0L0GdKlf 6FMHtvWzoRJ0o nPAcLNwpCd7qkStpmVkhO U0iUWXtgsirm399CkMse3 koZRWbvJNrFHrpLCV1D77 dg0Y4PBZwZEHg FRZ5yIU0gT0kdAxhocgsi GVmdDsgdmVydGljYWwtYW ncM187ZQLboBrcUdEiiGe 6Y6ZdAyx6JJSt nKfbXL6ytBGgXHzhZd7lx NbipSmtQX0rGSYrzeutq9 98HfPow0wlOTPgpHKgVUr vBHC9F11ue7N3 TETqTYYnJWR3fYD6gU2kb GlnbjogbGVmdDsgdmVydG ffVAmaBXlvG675AVEwaQo nPlBhdGllbnQg LJvzPKh3X1UbEmytjEU+P T42NBHpQC18iEYdnBXik2 nixPn0OpSuWQGyIJI9yXo oEZcor4XdWLNe R06ceCEte7O4XOEnxGznp MRtHlXmeII4lV4kOUuuum zif5ebkeciWtocw3qqdu8 2uO79A89eBTmp ZHRoPSIzMCUiIHZhbGlnb z8wdE3yBb2+LNAucDW6dL P5xS6wUGTqRsZ9YZvrI74 9InRvcCIvPjxj h5xzu3ywqCz1QfX1JEDdg jRgtKymBAO0d4FkPn18N2 9sIHdpZHRoPSIyMCUiIHZ kgFaxnx1nzE9j Ii8+EXHjlNS7tRM9jU7vH wOoCjY5WAkfQ598YzRryU OoRqmbH02bI6DbjQX+PHR vRxi7UBXezGgk ND3yoMRsXCnoFq2iBRL2J iLxOpIjFJnaH9RmVNWjuf jqeqjhkYI7ABGuCDNjqN8 8Yh5wsOozQVTb iGJRvA0joekli4kcwzytS dYnMHUpVKm7KXc4DZRpnD okFpCkNMQ7KwP9GSJ5dME obS2rjInytnpm qL9jI3ViAHGobxuyMo06w Z6dVuNnNdP6LNemNew+SE 8MSk5FKkxzYLrZMHdgDPk vdGQ+PHRkIHN0 bTlkLCanXZDztA2oMGDtG 3i2PkKmIeI4UZagB0QzMU RglchtTt74xX2jNqQdBjB 6SNxyL2OoijA9 CASocBKqJHyfBMX6N29wb 0D1PZJhEBHcOTW7yXP2tF 1hbGlnbjogbGVmdDsgdmV ydGljYWwtYWxp C265DYOanFjkOfZjImLxH uA1IGK3Z8AbEpt2BOEdgB snZX4nyFIfYUcjQr2tnVi dxVreFB2jABVl rtkdBNYxdQ6vWEIkkQWds CvwSG4wSYLcycmar678At BjKJZ3RMTijWIlK2PseD7 yOiAjMDAwMDAw V7LnlSFpMFblX303EUtnV jL6RMZqaeLoL7LaIDDyqA prGyH4v3M1Rs1rSlWMCYZ yczwvdGQ+PHRk HUB6hJqlBBinRZQznG5kW KDtC8n0OoYwJqC3VKsoY6 TcJJGyfdhbFi17fX8wIaQ vDdQ7BAqdM6Pd wdR5GGFieSEdRYfnAKX7A 99gz0Q3FHBbSNLzLTM3qZ O8eK1cwQnxogbdcCPcaZp gdmVydGljYWwt DYaqY212CYQdrPuaGhAuu WFsZTwvdGQ+CELuCKR9aC ynPZohLNYlzB3qCVSpS6u 1OwMySsH2RIpg F2NeAYOxihoyTc18wN0mU nPeBeD0ADbmF7ExshX1LJ PsaLHwPEvgPNN3F72vs0L 5KTDwBJBwNKV2 rEM7fV4xdEbwbrtcpYCgr DsgdmVydGljYWwtYWxpZ2 12GKDiyEnxYvtqZlWLxb2 eQS9eVhehiBZ+ TI15jc05I9NiGeqvFiz1F KNpWNT9bQB3hI9hSANfWE hju7D6hLN1K3HjatRlmk2 ry8jbGYThUKvp C36mySIdy5F2IDGltBZ3M XAeaKcrCwFwpG70Cve+PG YvqZeui5XaXblxd4lqs7m ljWv5XbJwEHCw yvWhjGfxZEL8p7VdIf96M 29sIHdpZHRoPSIzMCUiIH AcjUmusg3ufY8rIg7+PGN utQW9kEY8vO8o SnDvLdI5DQubE139UfEob TFmOaxey7wdh6umsVo8Ia FgRUGghlJboXjxAPP9g5B sQj64J8LlbWnw o5RgExv0uj28gDXem1V7j AI2R5YfKPDwjwvexEQdfT vgZD6oNVTvfupaTGMawV0 fBZTtC7w3UhRc EcC0XXgrP1PgrbN7BLEbw WDaJCOyiTQXqG3njfixq3 xgknrbImCrZJVtIJz9ZIu 0LWFsaWduOiBs JYK8XbJ2BIH9xMMrwV8pp NncgdhdpL5jThk+UGh5c2 eijRHsIT7dfXG7UE53CF6 9jKRwy6X8lOS9 N4FsHGNdqzbsftdhdCH5E QPmVTUjlL49Zc7mqBssZw 6wFVMdAVT8DNGujOJwE5Z qqG0wLwPvVBXi VUNxV6JsrFJpOXxtY416S KsoRzW8POMkowMqK7AnXK KwuCtaRfO0l9I0Nd3BYJ5 5MD96HN98eZVh g7T7aAD7R8ZlHGTqjukzc iggzST8IJHxVEHejK27Km 2dsAocMs5rWAQcZNQ8FKU nyOFoH4CzuZ0p CcGxEZApHCXcQ8GtdWQtQ CxpL621KSlsJxF9KKHzba NdR9SgEAMfwZnoDjL0u5A 4Mw8EYh42DC62 SF66xMKan1V9wJQ3A8GdH XPwngsrnjrwrTW0WVVoBZ YdwQ56If9qeLmzDy3cOJA rHAC6QESsaKWr I7SxwM4rHtNtLWEbDDZoL 7PbrYOrQXwfT149TSooNc T5JDBivjGpJ5VkLHXpvPc aDcG7p1Y4Hz3C ECcrxnb6W1EbUryjsNW+P P96YZBgYY93uURgjAAtq2 wvtFe9QoBkSCGsQON8aHo aYLsuf3EgEGGz M96eqNOj (more content not included)... Normal [facility] Physician Orderon 11-07-2022 Physician Order [id number] Normal [facility] Basic Metabolic Panelon 10-10 Anion gap [Moles/Vol] 12.5 mmol/L Normal 6.0-15.0 [facility] Comment on above: Order Comment: Reaso n for Exam Preprocedural examination Performed By: #### C BC, BMP #### [address] Calcium [Mass/Vol] 9.4 mg/dL Normal 8.6-10.3 [facility] Comment on above: Order Comment: Reaso n for Exam Preprocedural examination Result Comment: PERF ORMED BY: [place] [address] PATHOLOGIST ELECTRON MICROSCOPIST JOANA SALCIDO M.D. Performed By: #### C BC, BMP #### [facility] [address] Chloride [Moles/Vol] 105 mmol/L Normal 98-107 [facility] Comment on above: Order Comment: Reaso n for Exam Preprocedural examination Performed By: #### C BC, BMP #### [facility] [address] CO2 [Moles/Vol] 26.4 mmol/L Normal 21.0-31.0 [facility] Comment on above: Order Comment: Reaso n for Exam Preprocedural examination Performed By: #### C BC, BMP #### [facility] [address] Creatinine [Mass/Vol] 0.91 mg/dL Normal 0.60-1.[address] [facility] Comment on above: Order Comment: Reaso n for Exam Preprocedural examination Performed By: #### C BC, BMP #### [place] [address] [place] GFR/1.73 sq M.predicted MDRD (S/P/Bld) [Vol rate/Area] mL/min/{1.73_m2} Normal [facility] Comment on above: Order Comment: Reaso n for Exam Preprocedural examination Performed By: #### C BC, BMP #### [address] Glucose [Mass/Vol] 91 mg/dL Normal 74-109 [facility] Comment on above: Order Comment: Reaso n for Exam Preprocedural examination Result Comment: [facility] Glucose Reference Range is dependent on time and content of last meal. Glucose of more than 200 mg/dL in a nonstressed, ambulatory subject supports the diagnosis of Diabetes Mellitus. ADA recommended reference range Performed By: #### C BC, BMP #### [address] Potassium [Moles/Vol] 3.9 mmol/L Normal 3.5-5.[address] [facility] Comment on above: Order Comment: Reaso n for Exam Preprocedural examination Performed By: #### C BC, BMP #### [place] [address] [place] Sodium [Moles/Vol] 140 mmol/L Normal 136-145 [facility] Comment on above: Order Comment: Reaso n for Exam Preprocedural examination Performed By: #### C BC, BMP #### [place] [address] [place] Urea nitrogen [Mass/Vol] 15 mg/dL Normal 7-25 [facility] Comment on above: Order Comment: Reaso n for Exam Preprocedural examination Performed By: #### C BC, BMP #### [address] [place] [address] [place] Basophils Auto (Bld) [#/Vol] Ordered By: Gilbert Chauhan on 10-26-2022 Basophils (Bld) [#/Vol] 0.1 10*3/uL 0.0-0.2 [facility] Basophils/100 WBC Auto (Bld) Ordered By: Gilbert Chauhan on 10-26-2022 Basophils/100 WBC (Bld) 0.8 % . [facility] Calcium [Mass/volume] in Ser um or PlasmaOrdered By: Gilbert Chauhan on 10-26-2022 Calcium [Mass/Vol] 9.4 mg/dL 8.6-10.3 [facility] Carbon dioxide, total [Moles /volume] in Serum or PlasmaOrdered By: Gilbert Chauhan on 10-26-2022 CO2 [Moles/Vol] 26.4 mmol/L 21.0-31.0 [facility] Chloride [Moles/volume] in S darwin or PlasmaOrdered By: Gilbert Chauhan on 10-26-2022 Chloride [Moles/Vol] 105 mmol/L 98-107 [facility] Complete Blood Count Auto Di ffon 10-26-2022 Basophils (Bld) [#/Vol] 0.1 10*3/uL Normal 0.0-0.2 [facility] Comment on above: Order Comment: Reaso n for Exam Preprocedural examination Result Comment: PERF ORMED BY: [place] [address] PATHOLOGIST ELECTRON MICROSCOPIST JOANA SALCIDO M.D. Performed By: #### C JAMEY, BMP #### [facility] [address] [place] [address] [place] Basophils/100 WBC (Bld) 0.8 % Normal . [facility] Comment on above: Order Comment: Reaso n for Exam Preprocedural examination Performed By: #### C BC, BMP #### [facility] [address] [place] [address] [place] Eosinophils (Bld) [#/Vol] 0.1 10*3/uL Normal 0.0-0.45 [facility] Comment on above: Order Comment: Reaso n for Exam Preprocedural examination Performed By: #### C BC, BMP #### [address] Eosinophils/100 WBC (Bld) 1.6 % Normal . [facility] Comment on above: Order Comment: Reaso n for Exam Preprocedural examination Performed By: #### C BC, BMP #### [address] Erythrocyte distribution width (RBC) [Ratio] 12.3 % Normal 11.9-15.3 [facility] Comment on above: Order Comment: Reaso n for Exam Preprocedural examination Performed By: #### C BC, BMP #### [address] Hematocrit (Bld) [Volume fraction] 39.7 % Normal 34.0-46.4 [facility] Comment on above: Order Comment: Reaso n for Exam Preprocedural examination Performed By: #### C BC, BMP #### [address] Hemoglobin (Bld) [Mass/Vol] 13.9 g/dL Normal 11.8-15.4 [facility] Comment on above: Order Comment: Reaso n for Exam Preprocedural examination Performed By: #### C BC, BMP #### [address] Lymphocytes (Bld) [#/Vol] 1.5 10*3/uL Normal 1.00-4.8 [facility] Comment on above: Order Comment: Reaso n for Exam Preprocedural examination Performed By: #### C BC, BMP #### [place] [address] [place] Lymphocytes/100 WBC (Bld) 20.0 % Normal . [facility] Comment on above: Order Comment: Reaso n for Exam Preprocedural examination Performed By: #### C BC, BMP #### [address] MCH (RBC) [Entitic mass] 30.9 pg Normal 24.7-34.3 [facility] Comment on above: Order Comment: Reaso n for Exam Preprocedural examination Performed By: #### C BC, BMP #### [address] MCV (RBC) [Entitic vol] 88.2 fL Normal 80-100 [facility] Comment on above: Order Comment: Reaso n for Exam Preprocedural examination Performed By: #### C BC, BMP #### [address] Mean Corpuscular HGB Conc 35.1 g/dL High 32.0-35.0 [facility] Comment on above: Order Comment: Reaso n for Exam Preprocedural examination Performed By: #### C BC, BMP #### [address] Monocytes (Bld) [#/Vol] 0.6 10*3/uL Normal 0.0-0.8 [facility] Comment on above: Order Comment: Reaso n for Exam Preprocedural examination Performed By: #### C BC, BMP #### [place] [address] [place] Monocytes/100 WBC (Bld) 7.6 % Normal . [facility] Comment on above: Order Comment: Reaso n for Exam Preprocedural examination Performed By: #### C BC, BMP #### [facility] [address] [place] [address] [place] Neutrophils (Bld) [#/Vol] 5.1 10*3/uL Normal 1.8-7.7 [facility] Comment on above: Order Comment: Reaso n for Exam Preprocedural examination Performed By: #### C BC, BMP #### [place] [address] [place] Neutrophils/100 WBC (Bld) 70.0 % Normal . [facility] Comment on above: Order Comment: Reaso n for Exam Preprocedural examination Performed By: #### C BC, BMP #### [address] [place] [address] [place] NRBC% 0.3 /100{WBC} Normal 0-0.5 [facility] Comment on above: Order Comment: Reaso n for Exam Preprocedural examination Performed By: #### C BC, BMP #### [address] Platelet mean volume (Bld) [Entitic vol] 9.7 fL Normal 6.3-10.7 [facility] Comment on above: Order Comment: Reaso n for Exam Preprocedural examination Performed By: #### C BC, BMP #### [address] Platelets (Bld) [#/Vol] 188 10*3/uL Normal 150-450 [facility] Comment on above: Order Comment: Reaso n for Exam Preprocedural examination Performed By: #### C BC, BMP #### [address] RBC (Bld) [#/Vol] 4.50 10*6/uL Normal 3.60-5.00 [facility] Comment on above: Order Comment: Reaso n for Exam Preprocedural examination Performed By: #### C BC, BMP #### [address] WBC (Bld) [#/Vol] 7.3 10*3/uL Normal 3.8-11.6 [facility] Comment on above: Order Comment: Reaso n for Exam Preprocedural examination Performed By: #### C BC, BMP #### [address] Creatinine [Mass/volume] in Serum or PlasmaOrdered By: Gilbert Chauhan on 10-26-2022 Creatinine [Mass/Vol] 0.91 mg/dL 0.60-1.[address] [facility] Eosinophils Auto (Bld) [#/Vo l]Ordered By: Gilbert Chauhan on 10-26-2022 Eosinophils (Bld) [#/Vol] 0.1 10*3/uL 0.0-0.45 [facility] Eosinophils/100 WBC Auto (Bl d)Ordered By: Gilbert Chauhan on 10-26-2022 Eosinophils/100 WBC (Bld) 1.6 % . [facility] Erythrocyte distribution wid th Auto (RBC) [Ratio]Ordered By: Gilbert Chauhan on 10-26-2022 Erythrocyte distribution width (RBC) [Ratio] 12.3 % 11.9-15.3 [facility] Glucose [Mass/volume] in Ser um or PlasmaOrdered By: Gilbert Chauhan on 10-26-2022 Glucose [Mass/Vol] 91 mg/dL 74-109 [facility] Comment on above: ADA recommended refe rence rangeRandom Glucose Reference Range is dependent on time and content of last meal. Glucose of more than 200 mg/dL in a nonstressed, ambulatory subject supports the diagnosis of Diabetes Mellitus. Hematocrit Auto (Bld) [Volum e fraction]Ordered By: Gilbert Chauhan on 10-26-2022 Hematocrit (Bld) [Volume fraction] 39.7 % 34.0-46.4 [facility] Hemoglobin [Mass/volume] in BloodOrdered By: Gilbert Chauhan on 10-26-2022 Hemoglobin (Bld) [Mass/Vol] 13.9 g/dL 11.8-15.4 [facility] Laboratory - Chemistry and C hemistry - challengeOrdered By: Gilbert Chauhan on 10-26-2022 GFR/1.73 sq M.predicted MDRD (S/P/Bld) [Vol rate/Area] mL/min/{1.73_m2} [facility] Leukocytes [#/volume] correc ricardo for nucleated erythrocytes in Blood by Automated counOrdered By: Gilbert Chauhan on 10-26-2022 WBC corrected for nucl RBC Auto (Bld) [#/Vol] 7.3 10*3/uL 3.8-11.6 [facility] Lymphocytes Auto (Bld) [#/Vo l]Ordered By: Gilbert Chauhan on 10-26-2022 Lymphocytes (Bld) [#/Vol] 1.5 10*3/uL 1.00-4.8 [facility] Lymphocytes/100 WBC Auto (Bl d)Ordered By: Gilbert Chauhan on 10-26-2022 Lymphocytes/100 WBC (Bld) 20.0 % . [facility] MCH Auto (RBC) [Entitic mass ]Ordered By: Gilbert Chauhan on 10-26-2022 MCH (RBC) [Entitic mass] 30.9 pg 24.7-34.3 [facility] MCHC Auto (RBC) [Mass/Vol]Or dered By: Gilbert Chauhan on 10-26-2022 MCHC (RBC) [Mass/Vol] 35.1 g/dL 32.0-35.[address] [facility] MCV Auto (RBC) [Entitic vol] Ordered By: Gilbert Chauhan on 10-26-2022 MCV (RBC) [Entitic vol] 88.2 fL 80-100 [facility] Monocytes Auto (Bld) [#/Vol] Ordered By: Gilbert Chauhan on 10-26-2022 Monocytes (Bld) [#/Vol] 0.6 10*3/uL 0.0-0.8 [facility] Monocytes/100 WBC Auto (Bld) Ordered By: Gilbert hCauhan on 10-26-2022 Monocytes/100 WBC (Bld) 7.6 % . [facility] Neutrophils Auto (Bld) [#/Vo l]Ordered By: Gilbert Chauhna on 10-26-2022 Neutrophils (Bld) [#/Vol] 5.1 10*3/uL 1.8-7.7 [facility] Neutrophils/100 WBC Auto (Bl d)Ordered By: Gilbert Chauhan on 10-26-2022 Neutrophils/100 WBC (Bld) 70.0 % . [facility] No Panel InformationOrdered By: Gilbert Chauhan on 10-26-2022 Pharmacy Creatinine Clearance (Chem N/A [facility] Nucleated erythrocytes [Pres ence] in Blood by Automated countOrdered By: Gilbert Chauhan on 10-26-2022 Nucleated RBC Auto Ql (Bld) 0.3 /100{WBC} 0-0.5 [facility] Platelet mean volume Auto (B ld) [Entitic vol]Ordered By: Gilbert Chauhan on 10-26-2022 Platelet mean volume (Bld) [Entitic vol] 9.7 fL 6.3-10.7 [facility] Platelets Auto (Bld) [#/Vol] Ordered By: Gilbert Chauhan on 10-26-2022 Platelets (Bld) [#/Vol] 188 10*3/uL 150-450 [facility] Potassium [Moles/volume] in Serum or PlasmaOrdered By: Gilbert Chauhan on 10-26-2022 Potassium [Moles/Vol] 3.9 mmol/L 3.5-5.[address] [facility] RBC Auto (Bld) [#/Vol]Ordere d By: Gilbert Chauhan on 10-26-2022 RBC (Bld) [#/Vol] 4.50 10*6/uL 3.60-5.00 [facility] Serum or plasma anion gap de terminationOrdered By: Gilbert Chauhan on 10-26-2022 Anion gap [Moles/Vol] 12.5 mmol/L 6.0-15.0 [facility] Sodium [Moles/volume] in Ser um or PlasmaOrdered By: Gilbert Chauhan on 10-26-2022 Sodium [Moles/Vol] 140 mmol/L 136-145 [facility] Urea nitrogen [Mass/volume] in Serum or PlasmaOrdered By: Gilbert Chauhan on 10-26-2022 Urea nitrogen [Mass/Vol] 15 mg/dL 7-25 [facility] WBC Auto (Bld) [#/Vol]Ordere d By: Gilbert Chauhan on 10-26-2022 WBC (Bld) [#/Vol] 7.3 10*3/uL 3.8-11.6 [facility] XR chest 2V*on 10-26-2022 XR chest 2V* [facility] [place] [address] XRay Report Signed Patient: Pat Licona MR#: [id number] : 1990 Acct:[id number] Age/Sex: 32 / F ADM Date: 10/26/22 Loc: XD Room: Type: [facility] Attending Dr: Gilbert Chauhan DPM Copies to: Gilbert Chauhan DPM Ordering Provider: Gilbert Chauhan DPM Date of Service: 10/26/22 XR/XR chest 2V*: surgery;Preprocedural examination Chest 2 views CLINICAL HISTORY: Preop chest for ankle surgery. COMPARISON: None FINDINGS: Heart normal size. Lungs are clear. No free air. XR/XR chest 2V* IMPRESSION: NO ACUTE CARDIOPULMONARY ABNORMALITY. Impression dictated by: Waylon Lares Jr., D.OChani10/26/2022 5:47 PM Dictation Location: [place] [address] Transcribed By: [facility] 10/26/221746 Dictated By: Waylon Lares Jr, DO 10/26/221746 Signed By: 10/26/221746 Normal [facility] PREG HCG QUALon 10-09-2022 , QUAL Negative Normal NEGATIVE [facility] Comment on above: Performed By: #### P REG #### [facility] [address] [address] HEAD WO CONon [...] by: DEANN THOMASON Date: 2022-09-21 14:32 Normal [facility] XR ankle LT min 3V*on 2022 XR ankle LT min 3V* [facility] Main [place] [address] [place] [address] XRay Report Signed Patient: Pat Licona MR#: [id number] : 1990 Acct:[id number] Age/Sex: 31 / F ADM Date: 08/23/22 Loc: XDUCLY Room: Type: [facility] Attending Dr: Marla Winslow APRN Copies to: Marla Winslow APRN Ordering Provider: Marla Winslow APRN Date of Service: 08/23/22 XR/XR ankle LT min 3V*: LEFT ANKLE INJURY 3views LEFTankle COMPARISON:None HISTORY: LEFT ankle injury No fracture, dislocation or focal soft tissue abnormality seen. XR/XR ankle LT min 3V* IMPRESSION: No acute findings. Impression dictated by: Carrington Flores M.D.08/23/2022 2:20 PM Dictation Location: [place] [address] Transcribed By: [facility] 08/23/22 1420 Dictated By: Carrington Flores DO 08/23/22 1345 Signed By: 08/23/22 1420 Normal [facility] PREG HCG QUALon 08-21-2022 , QUAL Negative Normal NEGATIVE [facility] Comment on above: Performed By: #### S EDR #### [facility] [address] [place] [address] Dr. Niurka Blount CMV AB IGMon 07-21-2022 Cytomegalovirus (CMV) Ab, IgM <30.0 Normal 0.0-29.9 [facility] Comment on above: Result Comment: Nega tive <30.0 Equivocal 30.0 - 34.9 Positive >34.9 A positive result is generally indicative of acute infection, reactivation or persistent IgM production. Performed By: #### C MVM #### [facility] [address] [place] [address] Dr. Niurka Blount CMV AB, IGGon 07-21-2022 Cytomegalovirus (CMV) Ab, IgG <0.60 Normal 0.00-0.59 [facility] Comment on above: Result Comment: Nega tive <0.60 Equivocal 0.60 - 0.69 Positive >0.69 Performed By: #### C MVIGG #### [facility] [address] [place] [address] Dr. Niurka Blount CBC AUTO DIFFon 07-17-2022 BASO # 0.0 103/ul Normal 0.0-0.1 [facility] Comment on above: Performed By: #### S EDR #### [facility] [address] [place] [address] Dr. Niurka Blount Basophils/100 WBC (Bld) 0.4 % Normal 0.2-2.0 [facility] Comment on above: Performed By: #### S EDR #### [facility] [address] [address] [address] Niurka Blount EO # 0.0 103/ul Normal 0.0-0.7 [facility] Comment on above: Performed By: #### S EDR #### [facility] [address] [place] [address] Dr. Niurka Blount Eosinophils/100 WBC (Bld) 0.0 % Critically low 0.9-7.0 [facility] Comment on above: Performed By: #### S EDR #### [facility] [address] [place] [address] Dr. Niurka Blount Erythrocyte distribution width (RBC) [Ratio] 11.4 % Normal 11.0-15.0 [facility] Comment on above: Performed By: #### S EDR #### [facility] [address] [place] [address] Dr. Niurka Blount Hematocrit (Bld) [Volume fraction] 40.2 % Normal 36.0-48.0 [facility] Comment on above: Performed By: #### S EDR #### [facility] [address] [place] [address] Dr. Niurka Blount Hemoglobin (Bld) [Mass/Vol] 14.5 g/dL Normal 12.0-16.0 [facility] Comment on above: Performed By: #### S EDR #### [facility] [address] [place] [address] Dr. Niurka Blount IG # 0.08 10e3/ul Critically high 0.00-0.03 [facility] Comment on above: Performed By: #### S EDR #### [facility] [address] [address] [address] Niurka Blount IG % 0.8 % Critically high 0.0-0.5 [facility] Comment on above: Performed By: #### S EDR #### [facility] [address] [place] [address] Dr. Niurka Blount LYMPH # 1.3 103/ul Normal 1.2-3.8 [facility] Comment on above: Performed By: #### S EDR #### [facility] [address] [address] [address] Niurka Blount Lymphocytes/100 WBC (Bld) 12.0 % Critically low 20.5-60.0 [facility] Comment on above: Performed By: #### S EDR #### [facility] [address] [place] [address] Dr. Niurka Blount MANUAL DIFF REQ NO Normal [facility] Comment on above: Performed By: #### S EDR #### [facility] [address] [place] [address] Dr. Niurka Blount MCH (RBC) [Entitic mass] 30.5 pg Normal 26.7-34.0 [facility] Comment on above: Performed By: #### S EDR #### [facility] [address] [place] [address] Dr. Niurka Blount MCHC (RBC) [Mass/Vol] 36.1 g/dL Critically high 29.9-35.2 [facility] Comment on above: Performed By: #### S EDR #### [facility] [address] [place] [address] Dr. Niurka Blount MCV (RBC) [Entitic vol] 84.6 fL Normal 81.0-99.0 [facility] Comment on above: Performed By: #### S EDR #### [facility] [address] [place] [address] Dr. Niurka Blount MONO # 0.6 103/ul Normal 0.3-0.8 [facility] Comment on above: Performed By: #### S EDR #### [facility] [address] [place] [address] Dr. Niurka Blount Monocytes/100 WBC (Bld) 5.6 % Normal 1.7-12.0 [facility] Comment on above: Performed By: #### S EDR #### [facility] [address] [address] [address] Niurka Blount NEUT # 8.5 103/ul Critically high 1.4-6.5 [facility] Comment on above: Performed By: #### S EDR #### [facility] [address] [address] [address] Niurka Blount Neutrophils/100 WBC (Bld) 81.2 % Critically high 43.0-75.0 [facility] Comment on above: Performed By: #### S EDR #### [facility] [address] [place] [address] Dr. Niurka Blount Platelet mean volume (Bld) [Entitic vol] 10.6 fL Normal 9.5-13.5 [facility] Comment on above: Performed By: #### S EDR #### [facility] [address] [address] [address] Niurka Blount PLT 277 103/ul Normal 150-450 [facility] Comment on above: Performed By: #### S EDR #### [facility] [address] [place] [address] Dr. Niurka Blount RBC 4.75 106/ul Normal 4.20-5.40 [facility] Comment on above: Performed By: #### S EDR #### [facility] [address] [place] [address] Dr. Niurka Blount WBC 10.5 103/ul Normal 4.0-11.0 [facility] Comment on above: Performed By: #### S EDR #### [facility] [address] [place] [address] Dr. Niurka Blount CRPon 07-17-2022 CRP [Mass/Vol] mg/L Normal <=1.0 [facility] Comment on above: Performed By: #### C MVM #### [facility] [address] [place] [address] ABD/PELV W CONon 07-17-[address] ABD/PELV W CON EXAM: CT ABD/PELV [...] VANNA GARLAND Date: 2022-07-17 18:12 Normal [facility] URINE PROFILEon 2 Bilirubin Ql (U) Negative Normal NEGATIVE [facility] Comment on above: Performed By: #### E RUR #### [facility] [address] [address] [address] Niurka Blount Clarity (U) CLEAR Normal CLEAR [facility] Comment on above: Performed By: #### E RUR #### [facility] [address] [place] [address] Dr. Niurka Blount Color (U) LT. YELLOW Normal YELLOW [facility] Comment on above: Performed By: #### E RUR #### [facility] [address] [place] [address] Dr. Niurka Blount ERUAHEbony A micrscopic examination will be performed if indicated. Normal [facility] Comment on above: Performed By: #### E RUR #### [facility] [address] [place] [address] Dr. Niurka Blount Glucose Ql (U) Negative Normal NEGATIVE [facility] Comment on above: Performed By: #### E RUR #### [facility] [address] [place] [address] Dr. Niurka Blount Hemoglobin Ql (U) Negative Normal NEGATIVE [facility] Comment on above: Performed By: #### E RUR #### [facility] [address] [place] [address] Dr. Niurka Blount Ketones Ql (U) Negative Normal NEGATIVE [facility] Comment on above: Performed By: #### E RUR #### [facility] [address] [place] [address] Dr. Niurka Blount LEUKOCYTES Negative Normal NEGATIVE [facility] Comment on above: Performed By: #### E RUR #### [facility] [address] [place] [address] Dr. Niurka Blount Nitrite Ql (U) Negative Normal NEGATIVE [facility] Comment on above: Performed By: #### E RUR #### [facility] [address] [place] [address] Dr. Niurka Blount pH (U) 6.0 [pH] Normal 5-9 [facility] Comment on above: Performed By: #### E RUR #### [facility] [address] [place] [address] Dr. Niurka Blount SPEC GRAVITY 1.010 Normal 1.005-<=1.02 5 [facility] Comment on above: Performed By: #### E RUR #### [facility] [address] [place] [address] Dr. Niurka Blount UA PROTEIN Negative Normal NEGATIVE/ TRACE [facility] Comment on above: Performed By: #### E RUR #### [facility] [address] [place] [address] Dr. Niurka Blount UR MICRO IND NOT INDICATED Normal [facility] Comment on above: Performed By: #### E RUR #### [facility] [address] [place] [address] Dr. Niurka Blount Urobilinogen Qn (U) 0.2 {David'U}/dL Normal 0.2 - 1. 0 [facility] Comment on above: Performed By: #### E RUR #### [facility] [address] [place] [address] Dr. Niurak Blount LACTATE/LACTIC ACIDon 2021 Lactate [Moles/Vol] 1.6 mmol/L Normal 0.4-1.9 [facility] Comment on above: Performed By: #### E RUR #### [facility] [address] [place] [address] Dr. Niurka Blount LIPASEon 07-17-2022 Lipase [Catalytic activity/Vol] 105.0 U/L Normal 73.0-393.0 [facility] Comment on above: Performed By: #### C MVM #### [facility] [address] [place] [address] Dr. Niurka Blount PREG HCG QUALon 07-17-2022 , QUAL Negative Normal NEGATIVE [facility] Comment on above: Performed By: #### P REG #### [facility] [address] [place] [address] Dr. Niurka Blount PROF 14(COMP METB)on 022 Albumin [Mass/Vol] 4.4 g/dL Normal 3.4-5.0 [facility] Comment on above: Performed By: #### C MVM #### [facility] [address] [place] [address] Dr. Niurka Blount Albumin/Globulin [Mass ratio] 1.4 {ratio} Normal [facility] Comment on above: Performed By: #### C MVM #### [facility] [address] [place] [address] Dr. Niurka Blount ALP [Catalytic activity/Vol] 82 U/L Normal 46-116 [facility] Comment on above: Performed By: #### C MVM #### [facility] [address] [place] [address] Dr. Niurka Blount ALT [Catalytic activity/Vol] 16 U/L Normal 14-59 [facility] Comment on above: Performed By: #### C MVM #### [facility] [address] [place] [address] Dr. Niurka Blount Anion gap [Moles/Vol] 11.6 mmol/L Normal [facility] Comment on above: Performed By: #### C MVM #### [facility] [address] [place] [address] Dr. Niurka Blount AST [Catalytic activity/Vol] 7 U/L Critically low 15-37 [facility] Comment on above: Performed By: #### C MVM #### [facility] [address] [place] [address] Dr. Niurka Blount Bilirubin [Mass/Vol] 0.6 mg/dL Normal 0.2-1.0 [facility] Comment on above: Performed By: #### C MVM #### [facility] [address] [place] [address] Dr. Niurka Blount Calcium [Mass/Vol] 8.8 mg/dL Normal 8.5-10.1 [facility] Comment on above: Performed By: #### C MVM #### [facility] [address] [place] [address] Dr. Niurka Blount Chloride [Moles/Vol] 103 mmol/L Normal 98-107 [facility] Comment on above: Performed By: #### C MVM #### [facility] [address] [place] [address] Dr. Niurka Blount CO2 [Moles/Vol] 24.4 mmol/L Normal 21.0-32.0 [facility] Comment on above: Performed By: #### C MVM #### [facility] [address] [address] [address] Niurka Blount Creatinine [Mass/Vol] 0.67 mg/dL Normal 0.55-1.02 [facility] Comment on above: Performed By: #### C MVM #### [facility] [address] [address] [address] Niurka Blount EGFR-AF GEORGIAN >60 Normal >=60 [facility] Comment on above: Performed By: #### C MVM #### [facility] [address] [address] [address] Niurka Blount EGFR-NON AF GEORGIAN >60 Normal >=60 [facility] Comment on above: Performed By: #### C MVM #### [facility] [address] [address] [address] Niurka Blount Globulin (S) [Mass/Vol] 3.1 g/dL Normal [facility] Comment on above: Performed By: #### C MVM #### [facility] [address] [address] [address] Niurka Blount Glucose [Mass/Vol] 109 mg/dL Critically high 74-106 [facility] Comment on above: Performed By: #### C MVM #### [facility] [address] [address] [address] Niurka Blount Potassium [Moles/Vol] 4.0 mmol/L Normal 3.5-5.1 [facility] Comment on above: Performed By: #### C MVM #### [facility] [address] [address] [address] Niurka Blount Protein [Mass/Vol] 7.5 g/dL Normal 6.4-8.2 [facility] Comment on above: Performed By: #### C MVM #### [facility] [address] [address] [address] Niurka Blount Sodium [Moles/Vol] 135 mmol/L Critically low 136-145 [facility] Comment on above: Performed By: #### C MVM #### [facility] [address] [place] [address] Dr. Niurka Blount Urea nitrogen [Mass/Vol] 8.0 mg/dL Normal 7.0-18.0 [facility] Comment on above: Performed By: #### C MVM #### [facility] [address] [place] [address] Dr. Niurka Blount Urea nitrogen/Creatinine [Mass ratio] 11.9 mg/mg Normal [facility] Comment on above: Performed By: #### C MVM #### [facility] [address] [place] [address] Dr. Niurka Blount [facility] 3 mm/hr Normal <=20 [facility] Comment on above: Performed By: #### S EDR #### [facility] [address] [place] [address] Dr. Niurka Blount CBC AUTO DIFFon 07-13-2022 BASO # 0.1 103/ul Normal 0.0-0.1 [facility] Comment on above: Performed By: #### S EDR #### [facility] [address] [place] [address] Dr. Niurka Blount Basophils/100 WBC (Bld) 0.7 % Normal 0.2-2.0 [facility] Comment on above: Performed By: #### S EDR #### [facility] [address] [place] [address] Dr. Niurka Blount EO # 0.1 103/ul Normal 0.0-0.7 [facility] Comment on above: Performed By: #### S EDR #### [facility] [address] [place] [address] Dr. Niurka Blount Eosinophils/100 WBC (Bld) 1.3 % Normal 0.9-7.0 [facility] Comment on above: Performed By: #### S EDR #### [facility] [address] [place] [address] Dr. Niurka Blount Erythrocyte distribution width (RBC) [Ratio] 11.3 % Normal 11.0-15.0 [facility] Comment on above: Performed By: #### S EDR #### [facility] [address] [place] [address] Dr. Niurka Blount Hematocrit (Bld) [Volume fraction] 40.4 % Normal 36.0-48.0 [facility] Comment on above: Performed By: #### S EDR #### [facility] [address] [place] [address] Dr. Niurka Blount Hemoglobin (Bld) [Mass/Vol] 14.2 g/dL Normal 12.0-16.0 [facility] Comment on above: Performed By: #### S EDR #### [facility] [address] [place] [address] Dr. Niurka Blount IG # 0.02 10e3/ul Normal 0.00-0.03 [facility] Comment on above: Performed By: #### S EDR #### [facility] [address] [place] [address] Dr. Niurka Blount IG % 0.2 % Normal 0.0-0.5 [facility] Comment on above: Performed By: #### S EDR #### [facility] [address] [place] [address] Dr. Niurka Blount LYMPH # 1.9 103/ul Normal 1.2-3.8 [facility] Comment on above: Performed By: #### S EDR #### [facility] [address] [place] [address] Dr. Niurka Blount Lymphocytes/100 WBC (Bld) 22.1 % Normal 20.5-60.0 [facility] Comment on above: Performed By: #### S EDR #### [facility] [address] [place] [address] Dr. Niurka Blount MANUAL DIFF REQ NO Normal [facility] Comment on above: Performed By: #### S EDR #### [facility] [address] [place] [address] Dr. Niurka Blount MCH (RBC) [Entitic mass] 30.0 pg Normal 26.7-34.0 [facility] Comment on above: Performed By: #### S EDR #### [facility] [address] [address] [address] Niurka Blount MCHC (RBC) [Mass/Vol] 35.1 g/dL Normal 29.9-35.2 [facility] Comment on above: Performed By: #### S EDR #### [facility] [address] [place] [address] Dr. Niurka Blount MCV (RBC) [Entitic vol] 85.4 fL Normal 81.0-99.0 [facility] Comment on above: Performed By: #### S EDR #### [facility] [address] [place] [address] Dr. Niurka Blount MONO # 0.6 103/ul Normal 0.3-0.8 [facility] Comment on above: Performed By: #### S EDR #### [facility] [address] [place] [address] Dr. Niurka Blount Monocytes/100 WBC (Bld) 6.8 % Normal 1.7-12.0 [facility] Comment on above: Performed By: #### S EDR #### [facility] [address] [place] [address] Dr. Niurka Blount NEUT # 6.0 103/ul Normal 1.4-6.5 [facility] Comment on above: Performed By: #### S EDR #### [facility] [address] [place] [address] Dr. Niurka Blount Neutrophils/100 WBC (Bld) 68.9 % Normal 43.0-75.0 [facility] Comment on above: Performed By: #### S EDR #### [facility] [address] [place] [address] Dr. Niurka Blount Platelet mean volume (Bld) [Entitic vol] 10.7 fL Normal 9.5-13.5 [facility] Comment on above: Performed By: #### S EDR #### [facility] [address] [place] [address] Dr. Niurka Blount PLT 247 103/ul Normal 150-450 [facility] Comment on above: Performed By: #### S EDR #### [facility] [address] [place] [address] Dr. Niurka Blount RBC 4.73 106/ul Normal 4.20-5.40 [facility] Comment on above: Performed By: #### S EDR #### [facility] [address] [place] [address] Dr. Niukra Blount WBC 8.7 103/ul Normal 4.0-11.0 [facility] Comment on above: Performed By: #### S EDR #### [facility] [address] [place] [address] Dr. Niurka Blount FREE T3on 07-13-2022 FREE T3 2.53 pg/mlL Normal 2.18-3.98 [facility] Comment on above: Performed By: #### E RUR #### [facility] [address] [place] [address] Dr. Niurka Blount PROF 14(COMP METB)on 022 Albumin [Mass/Vol] 4.3 g/dL Normal 3.4-5.0 [facility] Comment on above: Performed By: #### E RUR #### [facility] [address] [place] [address] Dr. Niurka Blount Albumin/Globulin [Mass ratio] 1.5 {ratio} Normal [facility] Comment on above: Performed By: #### E RUR #### [facility] [address] [place] [address] Dr. Niurka Blount ALP [Catalytic activity/Vol] 79 U/L Normal 46-116 [facility] Comment on above: Performed By: #### E RUR #### [facility] [address] [place] [address] Dr. Niurka Blount ALT [Catalytic activity/Vol] 14 U/L Normal 14-59 [facility] Comment on above: Performed By: #### E RUR #### [facility] [address] [place] [address] Dr. Niurka Blount Anion gap [Moles/Vol] 11.5 mmol/L Normal [facility] Comment on above: Performed By: #### E RUR #### [facility] [address] [place] [address] Dr. Niurka Blount AST [Catalytic activity/Vol] 10 U/L Critically low 15-37 [facility] Comment on above: Performed By: #### E RUR #### [facility] [address] [place] [address] Dr. Niurka Blount Bilirubin [Mass/Vol] 0.4 mg/dL Normal 0.2-1.0 [facility] Comment on above: Performed By: #### E RUR #### [facility] [address] [place] [address] Dr. Niurka Blount Calcium [Mass/Vol] 8.8 mg/dL Normal 8.5-10.1 [facility] Comment on above: Performed By: #### E RUR #### [facility] [address] [place] [address] Dr. Niurka Blount Chloride [Moles/Vol] 103 mmol/L Normal 98-107 [facility] Comment on above: Performed By: #### E RUR #### [facility] [address] [place] [address] Dr. Niurka Blount CO2 [Moles/Vol] 26.2 mmol/L Normal 21.0-32.0 [facility] Comment on above: Performed By: #### E RUR #### [facility] [address] [place] [address] Dr. Niurka Blount Creatinine [Mass/Vol] 0.71 mg/dL Normal 0.55-1.02 [facility] Comment on above: Performed By: #### E RUR #### [facility] [address] [place] [address] Dr. Niurka Blount EGFR-AF GEORGIAN >60 Normal >=60 [facility] Comment on above: Performed By: #### E RUR #### [facility] [address] [place] [address] Dr. Niurka Blount EGFR-NON AF GEORGIAN >60 Normal >=60 [facility] Comment on above: Performed By: #### E RUR #### [facility] [address] [address] [address] Niurka Blount Globulin (S) [Mass/Vol] 2.9 g/dL Normal [facility] Comment on above: Performed By: #### E RUR #### [facility] [address] [address] [address] Niurka Blount Glucose [Mass/Vol] 119 mg/dL Critically high 74-106 [facility] Comment on above: Performed By: #### E RUR #### [facility] [address] [address] [address] Niurka Blount Potassium [Moles/Vol] 3.7 mmol/L Normal 3.5-5.1 [facility] Comment on above: Performed By: #### E RUR #### [facility] [address] [place] [address] Dr. Niurka Blount Protein [Mass/Vol] 7.2 g/dL Normal 6.4-8.2 [facility] Comment on above: Performed By: #### E RUR #### [facility] [address] [address] [address] Niurka Blount Sodium [Moles/Vol] 137 mmol/L Normal 136-145 [facility] Comment on above: Performed By: #### E RUR #### [facility] [address] [place] [address] Dr. Niurka Blount Urea nitrogen [Mass/Vol] 11.0 mg/dL Normal 7.0-18.0 [facility] Comment on above: Performed By: #### E RUR #### [facility] [address] [place] [address] Dr. Niurka Blount Urea nitrogen/Creatinine [Mass ratio] 15.5 mg/mg Normal [facility] Comment on above: Performed By: #### E RUR #### [facility] [address] [address] [address] Niurka Blount TSHon 07-13-2022 TSH 0.543 uIU/mL Normal 0.358-3.740 [facility] Comment on above: Performed By: #### E RUR #### [facility] [address] [place] [address] Dr. Niurka Blount QUANTIFERON TB GOLD PLUSon 0 05-01-2022 QuantiFERON Criteria Comment Normal [facility] Comment on above: Result Comment: [...] test. Performed By: #### Q NTTB #### [facility] [address] [place] [address] Dr. Niurka Blount QuantiFERON Incubation Incubation performed. Normal [facility] Comment on above: Performed By: #### Q NTTB #### [facility] [address] [place] [address] Dr. Niurka Blount QuantiFERON Mitogen Value >10.00 Normal [facility] Comment on above: Performed By: #### Q NTTB #### [facility] [address] [place] [address] Dr. Niurka Blount QuantiFERON Nil Value 0.02 IU/mL Normal [facility] Comment on above: Performed By: #### Q NTTB #### [facility] [address] [place] [address] Dr. Niurka Blount QuantiFERON TB1 Ag Value 0.02 IU/mL Normal [facility] Comment on above: Performed By: #### Q NTTB #### [facility] [address] [place] [address] Dr. Niurka Blount QuantiFERON TB2 Ag Value 0.02 IU/mL Normal [facility] Comment on above: Performed By: #### Q NTTB #### [facility] [address] [place] [address] Dr. Niurka Blount QuantiFERON-TB Gold Plus Negative Normal Negative [facility] Comment on above: Result Comment: No r esponse to M tuberculosis antigens detected. Infection with M tuberculosis is unlikely, but high risk individuals should be considered for additional testing (ATS/IDSA/CDC Clinical Practice Guidelines, 2017). The reference range is an Antigen minus Nil result of <0.35 IU/mL. Chemiluminescence immunoassay methodology Performed By: #### Q NTTB #### [facility] [address] [place] [address] Dr. Niurka Blount HEP B COREon 04-29-2022 Hep B Core Ab, Tot Negative Normal Negative [facility] Comment on above: Performed By: #### E RUR #### [facility] [address] [place] [address] Dr. Niurka Blount HEP B SURFACE ANTIGEN SCREEN on 04-29-2022 HBsAg Screen Negative Normal Negative [facility] Comment on above: Performed By: #### E RUR #### [facility] [address] [place] [address] Dr. Niurka Blount CBC AUTO DIFFon 04-27-2022 BASO # 0.0 103/ul Normal 0.0-0.1 [facility] Comment on above: Performed By: #### E RUR #### [facility] [address] [place] [address] Dr. Niurka Blount Basophils/100 WBC (Bld) 0.5 % Normal 0.2-2.0 [facility] Comment on above: Performed By: #### E RUR #### [facility] [address] [place] [address] Dr. Niurka Blount EO # 0.1 103/ul Normal 0.0-0.7 [facility] Comment on above: Performed By: #### E RUR #### [facility] [address] [place] [address] Dr. Niurka Blount Eosinophils/100 WBC (Bld) 1.5 % Normal 0.9-7.0 [facility] Comment on above: Performed By: #### E RUR #### [facility] [address] [place] [address] Dr. Niurka Blount Erythrocyte distribution width (RBC) [Ratio] 11.9 % Normal 11.0-15.0 [facility] Comment on above: Performed By: #### E RUR #### [facility] [address] [place] [address] Dr. Niurka Blount Hematocrit (Bld) [Volume fraction] 39.2 % Normal 36.0-48.0 [facility] Comment on above: Performed By: #### E RUR #### [facility] [address] [place] [address] Dr. Niurka Blount Hemoglobin (Bld) [Mass/Vol] 13.9 g/dL Normal 12.0-16.0 [facility] Comment on above: Performed By: #### E RUR #### [facility] [address] [place] [address] Dr. Niurka Blount IG # 0.03 10e3/ul Normal 0.00-0.03 [facility] Comment on above: Performed By: #### E RUR #### [facility] [address] [place] [address] Dr. Niurka Blount IG % 0.4 % Normal 0.0-0.5 [facility] Comment on above: Performed By: #### E RUR #### [facility] [address] [place] [address] Dr. Niurka Blount LYMPH # 2.2 103/ul Normal 1.2-3.8 [facility] Comment on above: Performed By: #### E RUR #### [facility] [address] [place] [address] Dr. Niurka Blount Lymphocytes/100 WBC (Bld) 26.3 % Normal 20.5-60.0 [facility] Comment on above: Performed By: #### E RUR #### [facility] [address] [place] [address] Dr. Niurka Blount MANUAL DIFF REQ NO Normal [facility] Comment on above: Performed By: #### E RUR #### [facility] [address] [place] [address] Dr. Niurka Blount MCH (RBC) [Entitic mass] 30.5 pg Normal 26.7-34.0 [facility] Comment on above: Performed By: #### E RUR #### [facility] [address] [place] [address] Dr. Niurka Blount MCHC (RBC) [Mass/Vol] 35.5 g/dL Critically high 29.9-35.2 [facility] Comment on above: Performed By: #### E RUR #### [facility] [address] [place] [address] Dr. Niurka Blount MCV (RBC) [Entitic vol] 86.2 fL Normal 81.0-99.0 [facility] Comment on above: Performed By: #### E RUR #### [facility] [address] [place] [address] Dr. Niurka Blount MONO # 0.6 103/ul Normal 0.3-0.8 [facility] Comment on above: Performed By: #### E RUR #### [facility] [address] [place] [address] Dr. Niurka Blount Monocytes/100 WBC (Bld) 7.2 % Normal 1.7-12.0 [facility] Comment on above: Performed By: #### E RUR #### [facility] [address] [place] [address] Dr. Niurka Blount NEUT # 5.4 103/ul Normal 1.4-6.5 [facility] Comment on above: Performed By: #### E RUR #### [facility] [address] [place] [address] Dr. Niurka Blount Neutrophils/100 WBC (Bld) 64.1 % Normal 43.0-75.0 [facility] Comment on above: Performed By: #### E RUR #### [facility] [address] [place] [address] Dr. Niurka Blount Platelet mean volume (Bld) [Entitic vol] 10.4 fL Normal 9.5-13.5 [facility] Comment on above: Performed By: #### E RUR #### [facility] [address] [place] [address] Dr. Niurka Blount PLT 235 103/ul Normal 150-450 [facility] Comment on above: Performed By: #### E RUR #### [facility] [address] [address] [address] Niurka Blount RBC 4.55 106/ul Normal 4.20-5.40 [facility] Comment on above: Performed By: #### E RUR #### [facility] [address] [place] [address] Dr. Niurka Blount WBC 8.5 103/ul Normal 4.0-11.0 [facility] Comment on above: Performed By: #### E RUR #### [facility] [address] [place] [address] Dr. Niurka Blount CRPon 04-27-2022 CRP [Mass/Vol] mg/L Normal <=1.0 [facility] Comment on above: Performed By: #### C MP, CRP #### [facility] [address] [place] [address] Dr. Niurka Blount PROF 14(COMP METB)on 022 Albumin [Mass/Vol] 4.2 g/dL Normal 3.4-5.0 [facility] Comment on above: Performed By: #### C MP, CRP #### [facility] [address] [place] [address] Dr. Niurka Blount Albumin/Globulin [Mass ratio] 1.4 {ratio} Normal [facility] Comment on above: Performed By: #### C MP, CRP #### [facility] [address] [place] [address] Dr. Niurka Blount ALP [Catalytic activity/Vol] 80 U/L Normal 46-116 [facility] Comment on above: Performed By: #### C MP, CRP #### [facility] [address] [place] [address] Dr. Niurka Blount ALT [Catalytic activity/Vol] 26 U/L Normal 14-59 [facility] Comment on above: Performed By: #### C MP, CRP #### [facility] [address] [place] [address] Dr. Niurka Blount Anion gap [Moles/Vol] 11.4 mmol/L Normal [facility] Comment on above: Performed By: #### C MP, CRP #### [facility] [address] [address] [address] Niurka Blount AST [Catalytic activity/Vol] 13 U/L Critically low 15-37 [facility] Comment on above: Performed By: #### C MP, CRP #### [facility] [address] [address] [address] Niurka Blount Bilirubin [Mass/Vol] 0.4 mg/dL Normal 0.2-1.0 [facility] Comment on above: Performed By: #### C MP, CRP #### [facility] [address] [address] [address] Niurka Blount Calcium [Mass/Vol] 8.8 mg/dL Normal 8.5-10.1 [facility] Comment on above: Performed By: #### C MP, CRP #### [facility] [address] [address] [address] Niurka Blount Chloride [Moles/Vol] 106 mmol/L Normal 98-107 [facility] Comment on above: Performed By: #### C MP, CRP #### [facility] [address] [address] [address] Niurka Blount CO2 [Moles/Vol] 26.5 mmol/L Normal 21.0-32.0 [facility] Comment on above: Performed By: #### C MP, CRP #### [facility] [address] [address] [address] Niurka Blount Creatinine [Mass/Vol] 0.80 mg/dL Normal 0.55-1.02 [facility] Comment on above: Performed By: #### C MP, CRP #### [facility] [address] [address] [address] Niurka Blount EGFR-AF GEORGIAN >60 Normal >=60 [facility] Comment on above: Performed By: #### C MP, CRP #### [facility] [address] [address] [address] Niurka Blount EGFR-NON AF GEORGIAN >60 Normal >=60 [facility] Comment on above: Performed By: #### C MP, CRP #### [facility] [address] [address] [address] Niurka Blount Globulin (S) [Mass/Vol] 3.0 g/dL Normal [facility] Comment on above: Performed By: #### C MP, CRP #### [facility] [address] [address] [address] Niurka Blount Glucose [Mass/Vol] 113 mg/dL Critically high 74-106 [facility] Comment on above: Performed By: #### C MP, CRP #### [facility] [address] [address] [address] Niurka Blount Potassium [Moles/Vol] 3.9 mmol/L Normal 3.5-5.1 [facility] Comment on above: Performed By: #### C MP, CRP #### [facility] [address] [place] [address] Dr. Niurka Blount Protein [Mass/Vol] 7.2 g/dL Normal 6.4-8.2 [facility] Comment on above: Performed By: #### C MP, CRP #### [facility] [address] [address] [address] Niurka Blount Sodium [Moles/Vol] 140 mmol/L Normal 136-145 [facility] Comment on above: Performed By: #### C MP, CRP #### [facility] [address] [place] [address] Dr. Niurka Blount Urea nitrogen [Mass/Vol] 9.0 mg/dL Normal 7.0-18.0 [facility] Comment on above: Performed By: #### C MP, CRP #### [facility] [address] [place] [address] Dr. Niurka Blount Urea nitrogen/Creatinine [Mass ratio] 11.2 mg/mg Normal [facility] Comment on above: Performed By: #### C MP, CRP #### [facility] [address] [address] [address] Niurka Blount SED RATE [facility] 2021 SED RATE 2 mm/hr Normal <=20 [facility] Comment on above: Performed By: #### E RUR #### [facility] [address] [address] [address] Niurka Blount MRI CSPDUTCH WO CONon 04-06-20 MRI CSPINE WO CON [...] DEANN THOMASON Date: 2022-04-06 11:21 Normal [facility] XR CSPINE MIN 4 VIEWSon 06-3 XR CSPINE MIN 4 VIEWS EXAMINATION: XR [...] ISABEL CHAVEZ Date: 2022-02-08 17:24 Normal [facility] Albumin [Mass/volume] in Ser um or PlasmaOrdered By: Piter Maharaj on 09-18-2021 Albumin [Mass/Vol] 4.3 g/dL 3.2-5.5 [facility] Basophils Auto (Bld) [#/Vol] Ordered By: Piter Maharaj on 09-18-2021 Basophils (Bld) [#/Vol] 0.0 10*3/uL 0.0-0.2 [facility] Basophils/100 WBC Auto (Bld) Ordered By: Piter Maharaj on 09-18-2021 Basophils/100 WBC (Bld) 0.7 % . [facility] C reactive protein [Mass/vol ume] in Serum or PlasmaOrdered By: Piter Maharaj on 09-18-2021 CRP [Mass/Vol] 1.1 mg/dL 0.0-1.0 [facility] Creatinine and Glomerular fi ltration rate.predicted panel (S/P/Bld)Ordered By: Piter Maharaj on 09-18-2021 Creatinine [Mass/Vol] 0.73 mg/dL 0.44-1.[address] [facility] Eosinophils Auto (Bld) [#/Vo l]Ordered By: Piter Maharaj on 09-18-2021 Eosinophils (Bld) [#/Vol] 0.1 10*3/uL 0.0-0.45 [facility] Eosinophils/100 WBC Auto (Bl d)Ordered By: Piter Maharaj on 09-18-2021 Eosinophils/100 WBC (Bld) 1.9 % . [facility] Erythrocyte distribution wid th Auto (RBC) [Ratio]Ordered By: Piter Maharaj on 09-18-2021 Erythrocyte distribution width (RBC) [Ratio] 12.0 % 11.9-15.3 [facility] Erythrocyte sedimentation ra te by Photometric methodOrdered By: Piter Maharaj on 09-18-2021 ESR Photometric method (Bld) [Velocity] 3 mm/hr 0-19 [facility] Estimated glomerular filtrat ion rate (GFR) non- AmericanOrdered By: Piter Maharaj on 09-18-2021 GFR/1.73 sq M.predicted among non-blacks MDRD (S/P/Bld) [Vol rate/Area] > 60 mL/Min [facility] Globulin Calc (S) [Mass/Vol] Ordered By: Piter Maharaj on 09-18-2021 Globulin (S) [Mass/Vol] 2.2 g/dL [facility] Hematocrit Auto (Bld) [Volum e fraction]Ordered By: Piter Maharaj on 09-18-2021 Hematocrit (Bld) [Volume fraction] 42.2 % 34.0-46.4 [facility] Hemoglobin [Mass/volume] in BloodOrdered By: Piter Maharaj on 09-18-2021 Hemoglobin (Bld) [Mass/Vol] 14.6 g/dL 11.8-15.4 [facility] Laboratory - Hematology and Cell countsOrdered By: Piter Maharaj on 09-18-2021 Nucleated RBC/100 WBC (Bld) [Ratio] 0.1 % 0-0.5 [facility] Leukocytes [#/volume] in Blo od by Automated countOrdered By: Piter Maharaj on 09-18-2021 WBC (Bld) [#/Vol] 6.6 10*3/uL 4.5-11.0 [facility] Lymphocytes Auto (Bld) [#/Vo l]Ordered By: Piter Maharaj on 09-18-2021 Lymphocytes (Bld) [#/Vol] 2.3 10*3/uL 1.00-4.8 [facility] Lymphocytes/100 WBC Auto (Bl d)Ordered By: Piter Maharaj on 09-18-2021 Lymphocytes/100 WBC (Bld) 34.0 % . [facility] MCH Auto (RBC) [Entitic mass ]Ordered By: Piter Maharaj on 09-18-2021 MCH (RBC) [Entitic mass] 30.0 pg 24.7-34.3 [facility] MCHC Auto (RBC) [Mass/Vol]Or dered By: Piter Maharaj on 09-18-2021 MCHC (RBC) [Mass/Vol] 34.6 g/dL 32.0-35.[address] [facility] MCV Auto (RBC) [Entitic vol] Ordered By: Piter Maharaj on 09-18-2021 MCV (RBC) [Entitic vol] 86.6 fL 80-100 [facility] Monocytes Auto (Bld) [#/Vol] Ordered By: Piter Maharaj on 09-18-2021 Monocytes (Bld) [#/Vol] 0.5 10*3/uL 0.0-0.8 [facility] Monocytes/100 WBC Auto (Bld) Ordered By: Piter Maharaj on 09-18-2021 Monocytes/100 WBC (Bld) 8.2 % . [facility] Neutrophils Auto (Bld) [#/Vo l]Ordered By: Piter Maharaj on 09-18-2021 Neutrophils (Bld) [#/Vol] 3.7 10*3/uL 1.8-7.7 [facility] Neutrophils/100 WBC Auto (Bl d)Ordered By: Piter Maharaj on 09-18-2021 Neutrophils/100 WBC (Bld) 55.2 % . [facility] No Panel InformationOrdered By: Piter Maharaj on 09-18-2021 Estimated GFR () > 60 mL/Min [facility] Comment on above: GFR estimated refere nce range: According to KDOQI guidelines, <60 ml/min/1.73m2 is sufficient to diagnose a patient with chronic kidney disease. Pharmacy Creatinine Clearance (Chem 102.56 [facility] Platelet mean volume Auto (B ld) [Entitic vol]Ordered By: Piter Maharaj on 09-18-2021 Platelet mean volume (Bld) [Entitic vol] 8.8 fL 6.3-10.7 [facility] Platelets Auto (Bld) [#/Vol] Ordered By: Piter Maharaj on 09-18-2021 Platelets (Bld) [#/Vol] 222 10*3/uL 150-450 [facility] Protein [Mass/volume] in Ser um or PlasmaOrdered By: Piter Maharaj on 09-18-2021 Protein [Mass/Vol] 6.5 g/dL 6.1-7.9 [facility] RBC Auto (Bld) [#/Vol]Ordere d By: Piter Maharaj on 09-18-2021 RBC (Bld) [#/Vol] 4.87 10*6/uL 3.60-5.00 [facility] Serum or plasma alanine rodriguez otransferase measurement without P-5'-P (enzymatic activiOrdered By: Piter Maharaj on 09-18-2021 ALT No additional P-5'-P [Catalytic activity/Vol] 23 U/L 10-60 [facility] Serum or plasma albumin/glob ulin mass ratioOrdered By: Piter Maharaj on 09-18-2021 Albumin/Globulin [Mass ratio] 2.0 {ratio} [facility] Serum or plasma alkaline susan sphatase measurement (enzymatic activity/volume)Ordered By: Piter Maharaj on 09-18-2021 ALP [Catalytic activity/Vol] 84 U/L 32-92 [facility] Serum or plasma aspartate am inotransferase measurement (enzymatic activity/volume)Ordered By: Piter Maharaj on 09-18-2021 AST [Catalytic activity/Vol] 20 U/L 10-42 [facility] Serum or plasma calcium toni urement (mass/volume)Ordered By: Piter Maharaj on 09-18-2021 Calcium [Mass/Vol] 9.3 mg/dL 8.2-10.2 [facility] Serum or plasma chloride carina surement (moles/volume)Ordered By: Piter Maharaj on 09-18-2021 Chloride [Moles/Vol] 103 mmol/L 95-114 [facility] Serum or plasma glucose toni urement (mass/volume)Ordered By: Piter Maharaj on 09-18-2021 Glucose [Mass/Vol] 80 mg/dL 70-100 [facility] Comment on above: ADA recommended refe rence rangeRandom Glucose Reference Range is dependent on time and content of last meal. Glucose of more than 200 mg/dL in a nonstressed, ambulatory subject supports the diagnosis of Diabetes Mellitus. Serum or plasma potassium me asurement (moles/volume)Ordered By: Piter Maharaj on 09-18-2021 Potassium [Moles/Vol] 4.0 mmol/L 3.5-5.1 [facility] [facility] Serum or plasma sodium measu rement (moles/volume)Ordered By: Piter Maharaj on 09-18-2021 Sodium [Moles/Vol] 139 mmol/L 136-146 [facility] Serum or plasma total biliru bin measurement (mass/volume)Ordered By: Piter Maharaj on 09-18-2021 Bilirubin [Mass/Vol] 0.8 mg/dL 0.3-1.2 [facility] Serum or plasma total carbon dioxide measurement (moles/volume)Ordered By: Piter Maharaj on 09-18-2021 CO2 [Moles/Vol] 27.0 mmol/L 22.0-30.0 [facility] Serum or plasma urea nitroge n measurement (mass/volume)Ordered By: Piter Maharaj on 09-18-2021 Urea nitrogen [Mass/Vol] 14 mg/dL 9- [facility] ESR Westergren method (Bld) [Velocity]on 04-11-2020 ESR (Bld) [Velocity] 2 mm/h 0-32 [facility] Comment on above: Performed at: [place] [id number] Director: Gerry Martinez PhD, Phone: [phone] Laboratory - Hematology and Cell countson 04-11-2020 WBC (Bld) [#/Vol] 5.0 10*3/uL 4.5-11.0 [facility] Vital Signs Date Time Vital Sign Value Performing Clinician Facility 09-17-2023 13:30-0500 Body height 157.48 cm Piter Maharaj Other [facility] Other 09-17-2023 13:30-0500 Body mass index (BMI) [Ratio] 23.34 kg/m2 Piter Maharaj Other [facility] Other 09-17-2023 13:30-0500 Body weight 57.88 kg Piter Maharaj Other [facility] Other 04-04-2023 10:40-0400 Body height 157.48 cm Dutch Pereyra Other [facility] Other 04-04-2023 10:40-0400 Body mass index (BMI) [Ratio] 23.41 kg/m2 Dutch Pereyra Other [facility] Other 04-04-2023 10:40-0400 Body weight 58.06 kg Dutch Hafsa Other [facility] Other 04-04-2023 10:40-0400 Diastolic blood pressure 66 mm[Hg] Dutch Pereyra Other [facility] Other 04-04-2023 10:40-0400 Systolic blood pressure 104 mm[Hg] Dutch Pereyra Other [facility] Other 03-12-2023 13:15-0400 Body height 157.48 cm Piter Maharaj Other [facility] Other 03-12-2023 13:15-0400 Body mass index (BMI) [Ratio] 24.32 kg/m2 Piter Maharaj Other [facility] Other 03-12-2023 13:15-0400 Body weight 60.33 kg Piter Maharaj Other [facility] Other 03-12-2023 13:15-0400 Diastolic blood pressure 80 mm[Hg] Piter Maharaj Other [facility] Other 03-12-2023 13:15-0400 Systolic blood pressure 119 mm[Hg] Piter Maharaj Other [facility] Other 09-11-2022 14:15-0500 Body height 157.48 cm Piter Maharaj Other [facility] Other 09-11-2022 14:15-0500 Body mass index (BMI) [Ratio] 28.16 kg/m2 Piter Maharaj Other [facility] Other 09-11-2022 14:15-0500 Body weight 69.85 kg Piter Maharaj Other [facility] Other 09-11-2022 14:15-0500 Diastolic blood pressure 71 mm[Hg] Piter Maharaj Other [facility] Other 09-11-2022 14:15-0500 Systolic blood pressure 100 mm[Hg] Piter Maharaj Other [facility] Other 07-25-2022 11:45-0500 Body height 157.48 cm Piter Maharaj Other [facility] Other 07-25-2022 11:45-0500 Body mass index (BMI) [Ratio] 27.43 kg/m2 Piter Maharaj Other [facility] Other 07-25-2022 11:45-0500 Body weight 68.04 kg Piter Maharaj Other [facility] Other 07-25-2022 11:45-0500 Diastolic blood pressure 94 mm[Hg] Piter Maharaj Other [facility] Other 07-25-2022 11:45-0500 Systolic blood pressure 132 mm[Hg] Piter Campos Other [facility] Other 06-25-2022 15:25-0500 Diastolic blood pressure 83 mm[Hg] II Stoney Giles Work Phone: [facility] 06-25-2022 15:25-0500 Heart rate 60 /min II Stoney Giles Work Phone: [facility] 06-25-2022 15:25-0500 Systolic blood pressure 137 mm[Hg] II Stoney Giles Work Phone: [facility] 05-29-2022 14:06-0400 Body temperature 97.7 [degF] II Stoney Giles Work Phone: [facility] 05-29-2022 14:06-0400 Respiratory rate 18 /min II Stoney Giles Work Phone: [facility] 05-29-2022 14:06-0400 SaO2% (BldA) [Mass fraction] 95 % II Stoney Giles Work Phone: [facility] 05-23-2022 11:45-0400 Body height 157.48 cm Piter Maharaj Other [facility] Other 05-23-2022 11:45-0400 Body mass index (BMI) [Ratio] 28.35 kg/m2 Piter Maharaj Other [facility] Other 05-23-2022 11:45-0400 Body weight 70.31 kg Piter Maharaj Other [facility] Other 04-25-2022 12:00-0400 Body height 157.48 cm Piter Maharaj Other [facility] Other 04-25-2022 12:00-0400 Body mass index (BMI) [Ratio] 28.16 kg/m2 Piter Maharaj Other [facility] Other 04-25-2022 12:00-0400 Body weight 69.85 kg Piter Maharaj Other [facility] Other 10-30-2021 14:48-0400 Body height 157.48 cm II Stoney Giles Work Phone: [facility] 10-30-2021 14:48-0400 Body mass index (BMI) [Ratio] 29.8 kg/m2 II Stoney Giles Work Phone: [facility] 10-30-2021 14:48-0400 Body weight 73.93 kg II Stoney Giles Work Phone: [facility] 07-24-2021 11:45-0500 Body height 157.48 cm Piter Maharaj Other [facility] Other 07-24-2021 11:45-0500 Body mass index (BMI) [Ratio] 29.26 kg/m2 Piter Maharaj Other [facility] Other 07-24-2021 11:45-0500 Body weight 72.58 kg Piter Maharaj Other [facility] Other Encounters Encounter Date Encounter Type Care Provider Facility Start: 11-12-2023 End: 11-12-2023 ambulatory PADMINI RUANO Not Available Start: 11-04-2023 End: 11-04-2023 ambulatory FADUMO PEREZ Not Available Start: 10-14-2023 End: 10-15-2023 ambulatory NOAH Escalera APLING Not Available Start: 10-03-2023 End: 10-03-2023 ambulatory JAVED LEVIN Not Available Start: 09-30-2023 End: 09-30-2023 ambulatory NOAH Escalera APLING Not Available Start: 09-17-2023 End: 09-17-2023 ambulatory Piter Maharaj Other [facility] Other Start: 09-17-2023 Office outpatient visit 15 minutes Piter Maharaj [facility] Start: 09-16-2023 End: 09-16-2023 ambulatory NOAH B APLING Not Available Start: 09-11-2023 End: 09-12-2023 ambulatory NOAH Escalera APLING Not Available Start: 09-11-2023 End: 09-11-2023 ambulatory STONEY GILES Not Available Start: 08-16-2023 End: 08-16-2023 ambulatory JOHN SHUKLA Not Available Start: 07-18-2023 End: 07-18-2023 ambulatory JAVED LEVIN Not Available Start: 04-04-2023 End: 04-04-2023 ambulatory Dutch Pereyra Other [facility] Other Start: 04-04-2023 Office outpatient new 30 minutes Dutch Pereyra [facility] Neurosurgery Start: 04-03-2023 End: 04-03-2023 ambulatory Dutch Pereyra Facility:[facility] Start: 04-03-2023 End: 04-03-2023 Patient encounter procedure II Stoney Giles Work Phone: [facility] Work Phone: Start: 03-12-2023 End: 03-12-2023 ambulatory Piter Maharaj Other [facility] Other Start: 03-12-2023 Office outpatient visit 15 minutes Piter Maharaj [facility] Gastroenterology Start: 01-01-[address] STONEY GILES Facilit y:[facility]1 Start: 12-18-2022 End: 12-19-2022 ambulatory CINTIA GOMIJUAN DANIEL . Facility:[facility] Start: 12-11-2022 End: 12-11-2022 ambulatory ISABELLA VAUGHN Facility:[facility] Start: 12-04-2022 End: 12-04-2022 ambulatory STONEY ASKEW Facility:[facility] Start: 11-07-2022 End: 11-08-2022 ambulatory Gilbert Chauhan Facility:[facility] Start: 10-26-2022 End: 10-26-2022 ambulatory Gilbert Chauhan Facility:[facility] Start: 10-26-2022 End: 10-26-2022 ambulatory II Stoney Giles Work Phone: [facility] Work Phone: Start: 10-26-2022 End: 10-26-2022 Patient encounter procedure II Stoney Giles Work Phone: [facility] [place] Work Phone: Start: 10-23-2022 End: 10-24-2022 ambulatory BRADRAMSEY MATAREGULOGEOVANY . Facility:[facility] Start: 10-09-2022 End: 10-09-[address] ALEENA ANAND . Facility:[facility] Start: 09-21-2022 End: 09-21-[address] DEANN THOMASON Facility:[facility] Start: 2022 End: 09-14-2022 ambulatory YESSI ARBOLEDA . Facility:[facility] Start: 09-11-2022 End: 09-11-2022 ambulatory Piter Maharaj Other [facility] Other Start: 09-11-2022 Office outpatient visit 15 minutes Piter Maharaj [facility] Gastroenterology Start: 08-23-2022 End: 08-23-2022 ambulatory Marla Winslow Facility:[facility] Start: 08-23-2022 End: 08-23-2022 ambulatory II Stoney Giles Work Phone: [facility] Work Phone: Start: 08-23-2022 End: 08-23-2022 Patient encounter procedure II Stoney Giles Work Phone: [facility] Work Phone: Start: 08-21-2022 End: 08-21-[address] ALEENA ANAND . Facility:[facility]1 Start: 08-20-2022 End: 08-20-2022 ambulatory Piter Maharaj Other [facility] Other Start: 08-20-2022 Telephone encounter Piter moctezuma [facility] Start: 08-08-2022 End: 08-08-2022 ambulatory Piter Maharaj Other [facility] Other Start: 08-08-2022 Telephone encounter Piter Sen jose elias [facility] Start: 07-31-2022 End: 08-01-[address] ALEENA ANAND . Facility:[facility]1 Start: 07-30-2022 End: 07-30-2022 ambulatory Piter Maharaj Other [facility] Other Start: 07-30-2022 Telephone encounter Piter Adamsyeimi moctezuma [facility] Start: 07-25-2022 End: 07-25-2022 ambulatory Piter Maharaj Other [facility] Other Start: 07-25-2022 Patient encounter procedure Piter Maharaj [facility] Start: 07-20-2022 End: 07-21-[address] Jamel MAHARAJ Facility:[facility]1 Start: 07-18-2022 End: 07-18-2022 ambulatory Piter Maharaj Other [facility] Other Start: 07-18-2022 Telephone encounter Piter Lamasrosangelasarah moctezuma [facility] Start: 07-17-2022 End: 07-17-2022 ambulatory RAE HIRSCH . [facility] Other Start: 07-17-2022 Telephone encounter Piter moctezuma [facility] Start: 07-13-2022 End: 07-14-[address] STONEY GILES [facility] Other Start: 07-13-2022 Telephone encounter Piter Francy jose elias [facility] Start: 07-03-2022 End: 07-03-2022 ambulatory Piter Maharaj Other [facility] Other Start: 07-03-2022 Telephone encounter Piter moctezuma [facility] Start: 06-25-2022 End: 06-25-2022 ambulatory Stoney Giles Facility:[facility] Start: 06-25-2022 Registered Recurring LUZ Giles Work Phone: [facility] Work Phone: Start: 05-23-2022 End: 05-23-2022 ambulatory Piter Maharaj Other [facility] Other Start: 05-23-2022 Office outpatient visit 15 minutes Piter Maharaj [facility] Start: 04-27-2022 End: 04-28-[address] Jamel MAHARAJ Facility:[facility]1 Start: 04-25-2022 End: 04-25-2022 ambulatory Piter Maharaj Other [facility] Other Start: 04-25-2022 Office outpatient visit 25 minutes Piter Maahraj [facility] Start: 04-25-2022 Telephone encounter Piter moctezuma [facility] Start: 04-05-2022 End: 04-06-[address] STONEY GILES Facility:[facility]1 Start: 02-08-2022 End: 02-09-[address] TSONEY GILES Facility:[facility]1 Start: 01-15-2022 End: 01-15-2022 ambulatory Piter Maharaj Other [facility] Other Start: 01-15-2022 Telephone encounter Piter moctezuma [facility] Start: 07-24-2021 End: 07-24-2021 ambulatory Piter Maharaj Other [facility] Other Start: 07-24-2021 Office outpatient visit 15 minutes Piter Maharaj [facility] Start: 06-29-2021 End: 06-29-2021 ambulatory Piter Maharaj Other [facility] Other Start: 06-29-2021 Telephone encounter Piter Sen ck [facility] Procedures Date Procedure Procedure Detail Performing Clinician Start: 04-03-2023 X-ray of cervical spine II Stoney Giles Work Phone: Start: 10-26-2022 Plain chest X-ray II Da katt Giles Work Phone: Start: 08-23-2022 X-ray of left ankle II Stoney Giles Work Phone: Immunizations Immunization Date Immunization Notes Care Provider [facility] 12-21-2014 tetanus toxoid, reduced diphtheria toxoid, and acellular pertussis vaccine, adsorbed Piter Maharaj Other [facility] Other Payers Date Payer Category Payer Medicaid [id number] 2019 Self-pay [id number] 2019 Unknown [id number] 1990 Unknown [id number] 2.16.840.1.866263.3.579.2.727 1990 Unknown [id number] 2.16.840.1.651989.3.579.2.593 1990 Unknown [id number] 2.16.840.1.631729.3.579.2.593 1990 Unknown [id number] 2.16.840.1.916184.3.579.2.593 1990 Unknown [id number] 2.16.840.1.044002.3.579.2.593 1990 Unknown [id number] 2.16.840.1.065629.3.579.2.593 1990 Unknown [id number] 2.16.840.1.531674.3.579.2.593 1990 Unknown [id number] 2.16.840.1.158803.3.579.2.593 1990 Unknown [id number] 2.16.840.1.523293.3.579.2.593 1990 Unknown [id number] 2.16.840.1.019056.3.579.2.593 1990 Unknown [id number] 2.16.840.1.617691.3.579.2.593 1990 Unknown [id number] 2.16.840.1.883921.3.579.2.593 1990 Unknown [id number] 2.16.840.1.725439.3.579.2.593 1990 Unknown [id number] 2.16.840.1.949547.3.579.2.593 1990 Unknown [id number] 2.16.840.1.829036.3.579.2.593 1990 Unknown [id number] 2.16.840.1.298825.3.579.2.593 1990 Unknown [id number] 2.16.840.1.500070.3.579.2.593 1990 Unknown [id number] 2.16.840.1.323620.3.579.2.1259 1990 Unknown [id number] 2.16.840.1.168210.3.579.2.1259 1990 Unknown [id number] 2.16.840.1.005536.3.579.2.1259 1990 Unknown [id number] 2.16.840.1.389453.3.579.2.1259 1990 Unknown [id number] 2.16.840.1.193597.3.579.2.1259 1990 Unknown [id number] 2.16.840.1.534185.3.579.2.1259 1990 Unknown [id number] 2.16.840.1.087109.3.579.2.1259 1990 Unknown [id number] 2.16.840.1.034508.3.579.2.1259 1990 Unknown [id number] 2.16.840.1.057021.3.579.2.1259 1990 Unknown [id number] 2.16.840.1.885885.3.579.2.1259 1990 Unknown [id number] 2.16.840.1.992061.3.579.2.1259 1990 Unknown [id number] 2.16.840.1.076012.3.579.2.1259 1959 Unknown [id number] 2.16.840.1.084153.19 Private Health Insurance [facility] [id number] Unknown [id number] 2.16.840.1.542771.3.579.2.531 Social History Date Type Detail Facility Sex Assigned At [facility] Other Start: 12-23-2018 End: 12-23-2018 Tobacco smoking status [facility] Smoker (finding) [facility] Start: 1990 Sex Assigned At Female F [facility] Clinical Notes 07-24-2021 to 09-17-2023 Note Date & Type Note Facility 09-17-2023 Evaluation note Encounter Date Diagnosis Assessment Notes Sep, Crohns disease (ICD-10 - K50.90) Patient reports that she is doing well on Stelara and will continue with this therapy Patient reports that she has had recent labs done and we will obtain records release for this RTO 6 months [facility] Other 08-24-2023 Evaluation note* Encounter Date Diagnosis [...] 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 Also, of note, she uses Rudyard infrequently. She takes half a pill at a time, when she does use it, and she uses less than 14 pills in a month. Her OARRS report was reconciled. She does report the medicine does improve her quality of life, level of functioning and sleep pattern.[facility] [id number] Note CONSULTATION CONSULTATION DATE: 2022 This is [...] self-massage which she finds beneficial. Medications include Rudyard 5/325, half pill p.r.n. as needed because [...] be followed in the office there after.[facility] [id number] Evaluation note* Encounter Date Diagnosis Assessment Notes Treatment Notes Treatment Clinical Notes Aug, Crohns disease (ICD-10 - K50.90) Continue Stelara without change Labs and follow up in 6 months [facility] Other 12-20-2022 NoteCONSULTATION CONSULTATION DATE: 07/31/2022 CHIEF [...] currently takes Aleve two tablets a day, Rudyard 5/325 on a p.r.n. basis. She tries [...] the level of C4-5 and C6-7. CC: Sotney Giles M.D.[facility] [id number] Evaluation note* Encounter Date Diagnosis Assessment Notes Treatment Notes Treatment Clinical Notes Jul, Crohns disease (ICD-10 - K50.90) CONTINUE STELARA DIRECTED DECREASE PREDNISONE TO 40 MG DAILY FOR 7 DAYS, THEN DECREASE BY 10 MG WEEKLY RTO 6 WEEKS [facility] Other 12-07-2022 Evaluation note* Encounter Date Diagnosis Assessment Notes Treatment Notes Treatment Clinical Notes Jul, Crohns disease (ICD-10 - K50.90) [facility] Other 10-12-2022 Evaluation note* Encounter Date Diagnosis Assessment Notes Treatment Notes Treatment Clinical Notes May, Crohns disease (ICD-10 - K50.90) May, Diarrhea (ICD-10 - R19.7) May, Abdominal cramping (ICD-10 - R10.9) [facility] Other 09-14-2022 Evaluation note* Encounter Date Diagnosis Assessment Notes Treatment Notes Treatment Clinical Notes Apr, Crohns disease (ICD-10 - K50.90) PT HAS TRIED AND FAILED HUMIRA AND ENTYVIO START PPW FOR SKYRIZI RTO 4 WEEKS Apr, Diarrhea (ICD-10 - R19.7) Apr, Abdominal cramping (ICD-10 - R10.9) [facility] Other 06-30-2022 NotePROCEDURE: XR FOOT RT 2V COMPARISON: None. HISTORY: Pain in right foot FINDINGS: BONES:No acute fracture or dislocation. Mild enthesopathic spurring of the calcaneus at the Achilles insertion SOFT TISSUES:Negative. No visible soft tissue swelling. EFFUSION:None visible. OTHER: Negative. IMPRESSION: No acute abnormality Electronically authenticated by: ISABEL CHAVEZ Date: 2022-02-08 17:18[facility]12-13-2021 Evaluation note* Encounter Date Diagnosis Assessment Notes [...] 6 WEEKS, LABS ORDERED AT THIS TIME. [facility] Other Evaluation noteNo InformationNort [employer] Other Evaluation noteNo assessment information available [facility] Work Phone: Hislwuo general Narrative - Reported* Type Description Date Medical History [place] Surgical History tonsillectomy Hospitalization History childbirth [facility] Other Hismdjf general Narrative - Reported* Type Description Date Medical History shegalla Surgical History tonsillectomy Surgical History RFA Hospitalization History childbirth [facility] Other Hishrqo general Narrative - Reported* Type Description Date Medical History sheg[place] Medical History anxiety Medical History Crohns disease Surgical History tonsillectomy Surgical History RFA Hospitalization History childbirth Hospitalization History see above surg. hx. [facility] Other Chief Complaint and Reason for Visit [...] TO HAVE LABS AND START PAPERWORK FOR PASCUAL.06/21 StelaraClinicalClinical Acute IllnessPREDNISONEClinical Acute IllnessClinical Acute MedicinePT ADDED ON PER LRM. PT WAS TO HAVE LABS DRAWN.PREDNISONE [id number] STELARA INJECTIONSTELARA SHOTPT HERE FOR 3 MONTH [...] section and content) DATE CREATED AUTHOR 11/18/2022 [facility] DATE CREATED AUTHOR AUTHOR'S ORGANIZ ATION 12/23/2022 [facility] DATE CREATED AUTHOR AUTHOR'S ORGANIZ ATION 04/04/2023 [facility] DATE CREATED AUTHOR AUTHOR'S ORGANIZ ATION 11/13/2023 [facility] Special[facility] FOR RECORDS PERTAINING TO PATIENTS WHO [...] BE BASED ON THE PRIMARY CLINICAL RECORDS. [employer] provides no warranty or guarantee of the accuracy or completeness of information in this document.
== END 2023-11-26 13:23 | disposition home or self-care (01) ==
LOC: PM 13:22
PROVIDERS: PCP Internal Medicine; Visit Provider Anesthesiology Pain Medicine
DX: M62.838 Other muscle spasm (principal)
CPT/HCPCS: G0463

== ENCOUNTER 2024-01-13 16:26 | Outpatient (OUT) | payer MEDICAID, SELFPAY ==
[2024-01-14 13:51] LABS: BOX Test Sent Out DONE
== END 2024-01-13 16:27 | disposition home or self-care (01) ==
LOC: LAB 16:28
PROVIDERS: PCP Internal Medicine; Visit Provider Internal Medicine Gastroenterology
DX: K50.00 Crohn's disease of small intestine without complications (principal)
CPT/HCPCS: 36415

== ENCOUNTER 2024-01-25 10:38 | Outpatient (OUT) | payer MEDICAID, SELFPAY ==
--- OUTSIDE RECORDS SUMMARY | 2024-01-25 10:42 | XMS_ITS | CCD ---
Author Organization [facility] Care Team Providers Care Station Detective Name Role Phone Piter Maharaj Unavailable LUZ Giles Primary Care Provider [phone] MD Piter Maharaj Attending Provider [phone] AIDAN Winslow Attending Provider [phone] LUZ Giles Primary Care Provider [phone] AIDAN Winslow Attending Provider JOSE Chauhan Attending Provider Gilbert Chauhan Admitting Unavailable Gilbert Chauhan Attending Unavailable LUZ Giles Primary Care Provider DR STONEY IGLES Primary Care Unavailable LAKSHMIPATHY ., CINTIA Attending Ileana vailable LAKSHMIPATHY ., BRADATH Admitting Ileana vailable GRECHNY ., PA NOHEMI [...] Attending Ileana vailable HALKER .FRANCOIS Admitting Unavailable YESSI NEFF Consulting Unavailable DR STONEY GILES Primary Care [...] Admitting Unavailable Chan, Stoney Primary Care Unavailable Nicko, Piter Alaniz Admitting Unavailabl e Nicko, Piter Alaniz Attending Unavailabl e Winslow, Marla Mccullough Admitting Unavailable Winslow, Marla Mccullough Attending Unavailable Giles, Stoney Primary Care Unavailable Gilbert Chauhan Admitting Unavailable Gilbert Chauhan Attending Unavailable Stoney Giles Primary Care Unavailable Dutch Pereyra Admitting Unavailable Dutch Pereyra Attending Unavailable Stoney Giles Primary Care Unavailable Dutch Pereyra Unavailable LUZ Giles Primary Care Provider MD Duthc Pereyra Attending Provider JOHN SHUKLA Attending Unavailable STONEY GILES Attending Unavailable APLING, NOAH Escalera Attending Unavailable APLING, NOAH Escalera Referring Unavailable APLING, NOAH Escalera Attending Unavailable APLING, NOAH Escalera Attending Unavailable POONAMJAVED Li Attending Unavailable APLING, NOAH Escalera Referring Unavailable MURCEKFADUMO Attending Unavailable STONEY GILES Referring Unavailable BINDU, PADMINI Duncan Attending Unavailable BINDU, PADMINI Duncan Attending Unavailable STONEY GILES Attending Unavailable CHELLY BARBER Attending Unavailable BINDU, PADMINI Duncan Referring Unavailable JAVED LEVIN Attending Unavailable SUNIL, CHELLY Attending Unavailable BINDU, PADMINI Duncan Referring Unavailable GRACIE CLEMENT Attending Unavailable BINDU, PADMINI Duncan Referring Unavailable BINDU, PADMINI Duncan Attending Unavailable ROBIN NEWSOME Attending Unavailable BINDU, PADMINI Duncan Referring Unavailable ROBIN NEWSOME Attending Unavailable BINDU, PADMINI Duncan Referring Unavailable Allergies Allergy Classification Reported Allergen(s) Allergy Type Date of Onset Reaction(s) Facility (10 sources) Adhesive agent; Translations: [Adhesive] Allergy to substance 6 Unknown Reaction, Unknown [facility] (15 sources) Latex; Translations: [Latex] Allergy to substance 9 Unknown Reaction, Unknown [facility] (6 sources) BANDAIDS; Translations: [BANDAIDS] Allergy to substance [address] [facility] Medications Current Medications Medication Drug Class(es) Dates Sig (Normalized) Sig (Original) 10 ML risankizumab-rzaa 60 MG/ML Injection [Skyrizi] (10 sources) Start: 05-09-2022 Skyrizi 600 MG/10ML as directed Intravenous WEEK 0, WEEK 4, WEEK 8 for 56 days 28 Apr, 2022 Active Start: 05-09-2022 Skyrizi 600 MG /10ML as directed Subcutaneous AT WEEK 12 AND THEN EVERY 8 WEEKS AFTER for 56 days DISPENSE WITH ON BODY INJECTOR Apr, Active ALPRAZolam 0.25 mg oral tablet (20 sources) Benzodiazepine Start: 12-22-2018 take 0.25 mg by mouth twice daily Alprazolam Active 0.25 MG PO Twice daily December 22, 2018 12:00am Xanax Active Xanax Not-Taking diclofenac sodium 0.01 mg/mg topical gel (11 sources) Nonsteroidal Anti-inflammatory Drug Start: 08-08-2020 Voltaren 1 % externally Externally bid for 30 days Jul, Active hyoscyamine sulfate 0.125 mg oral tablet (1 source) Start: 07-19-2022 take 1 tablet by mouth every six hours Hyoscyamine Sulfate 0.125 MG 1 TABLET Orally FOUR TIMES A DAY for 30 days Jul, Active metaxalone 400 mg oral tablet (1 source) Start: 10-21-2023 Metaxalone Active MG PO October 21, 2023 12:00am predniSONE 20 mg oral tablet (10 sources) Start: 07-19-2022 take 3 tablets by [...] 1 ml ustekinumab 90 mg/ml prefilled syringe (9 sources) Interleukin-12 Antagonist, Interleukin-23 Antagonist Start: 10-21-2023 Ustekinumab (Stelara) 90 mg/mL syringe Active MG SUBCUT October 21, 2023 12:00am Stelara 90 MG/ML 90mg Subcutaneous every 8 weeks Active Vitamin D (3 sources) Vitamin D Active zonisamide 50 mg oral capsul e (1 source) Anti-epileptic Agent Zonisamide 50 MG as directed Orally Active Completed/Discontinued Medications Medication Drug Class(es) Dates Sig (Normalized) Sig (Original) acetaminophen 325 mg / HYDROcodone bitartrate 7.5 mg oral tablet (20 sources) Opioid Agonist Start: 09-28-2019 End: 01-24-2024 Hydrocodone-Acetami nophen Discontinued 1 TAB PO every 6 to 8 hours September 28, 2019 1:00am January 24, 2024 11:18am Vicodin Active amoxicillin 500 mg oral capsule (1 source) Penicillin-class Antibacterial Start: 10-21-2023 End: 01-24-2024 take 500 mg by mouth three times daily Amoxicillin Discontinued 500 MG PO Three times daily 30 October 21, 2023 12:00am January 24, 2024 11:18am buPROPion hydrochloride 75 mg oral tablet (5 sources) Aminoketone Start: 12-22-2018 End: 09-28-2019 take 2 tablets by mouth twice daily Bupropion Hcl Discontinued 2 TAB PO Twice daily December 22, 2018 12:00am September 28, 2019 2:55pm busPIRone hydrochloride 5 mg oral tablet (5 sources) Start: 09-28-2019 End: 10-21-2023 take 1 tablet by mouth three times daily Buspirone Discontinued 1 TAB PO Three times daily September 28, 2019 1:00am October 21, 2023 4:20pm Desogestrel-Ethinyl Estradiol (1 source) Progestin, Estrogen Start: 10-21-2023 End: 01-24-2024 Desogestrel-Ethiny l Estradiol (Apri) 0.15-0.03 mg tablet Discontinued TAB PO October 21, 2023 12:00am January 24, 2024 11:18am hydrocortisone 10 mg/ml / neomycin 3.5 mg/ml / polymyxin b [id number] unt/ml otic suspension (1 source) Aminoglycoside Antibacterial, Polymyxin-class Antibacterial, Corticosteroid Start: 10-21-2023 End: 01-24-2024 Neomycin-Polymyxin -Hc Discontinued 3 DROPS OTIC Three times daily October 21, 2023 12:00am January 24, 2024 11:19am right ear methocarbamol 750 mg oral tablet (5 sources) Muscle Relaxant Start: 09-28-2019 End: 10-21-2023 take 1 tablet by mouth once daily in the morning Methocarbamol Discontinued 1 TAB PO Every morning September 28, 2019 1:00am October 21, 2023 4:20pm nabumetone 750 mg oral tablet (5 sources) Nonsteroidal Anti-inflammatory Drug Start: 09-28-2019 End: 10-21-2023 take 1 tablet by mouth once daily in the morning Nabumetone Discontinued 1 TAB PO Every morning September 28, 2019 1:00am October 21, 2023 4:20pm vedolizumab 300 mg injection (16 sources) Integrin Receptor Antagonist Start: 09-02-2019 End: 10-21-2023 Vedolizumab (Entyvio) 300 mg Recon Soln Discontinued 300 MG IV EVERY 8 WEEKS September 28, 2019 1:00am October 21, 2023 4:20pm Problems Active Problems Problem Classification Problem Date [...] 09-24-2022 Episodic Other aftercare (1 source) Other terminal worker (current) drug therapy; Translations: [OTH SENIOR CARE CURRENT DRUG THERAPY] Onset: 09-24-2022 Episodic Other [...] Facility MR SHOULDER RIGHT WO IV CONT [facility] 10-14-2023 MR SHOULDER RIGHT WO IV CONTRAST [...] 04-03-2023 ALT [Catalytic activity/Vol] 8 U/L 7-52 [facility] Albumin [Mass/volume] in Ser um or Plasma by Bromocresol green (BCG) dye binding methoOrdered By: Piter Maharaj on 04-03-2023 Albumin BCG dye [Mass/Vol] 4.6 g/dL 3.5-5.7 [facility] Alkaline phosphatase [Enzyma tic activity/volume] in Serum or PlasmaOrdered By: Piter Maharaj on 04-03-2023 ALP [Catalytic activity/Vol] 50 U/L 34-104 [facility] Aspartate aminotransferase [ Enzymatic activity/volume] in Serum or PlasmaOrdered By: Piter Maharaj on 04-03-2023 AST [Catalytic activity/Vol] 10 U/L 13-39 [facility] Basophils Auto (Bld) [#/Vol] Ordered By: Piter Maharaj on 04-03-2023 Basophils (Bld) [#/Vol] 0.1 10*3/uL 0.0-0.2 [facility] Basophils/100 WBC Auto (Bld) Ordered By: Piter Maharaj on 04-03-2023 Basophils/100 WBC (Bld) 0.9 % . [facility] Bilirubin.total [Mass/volume ] in Serum or PlasmaOrdered By: Piter Maharaj on 04-03-2023 Bilirubin [Mass/Vol] 0.6 mg/dL 0.3-1.0 [facility] C reactive protein [Mass/vol ume] in Serum or PlasmaOrdered By: Piter Maharaj on 04-03-2023 CRP [Mass/Vol] < 0.5 mg/dL 0.0-0.5 [facility] C-Reactive Proteinon 023 CRP [Mass/Vol] mg/L Normal 0.0-0.5 [facility] Comment on above: Order Comment: Reaso n for Exam Crohns disease Result Comment: PERF ORMED BY: [facility] [address] [place] [address] PATHOLOGIST MRP CONTROLLER JOANA SALCIDO M.D. Performed By: #### C RP, CMP #### [facility] [address] Calcium [Mass/volume] in Ser um or PlasmaOrdered By: Piter Maharaj on 04-03-2023 Calcium [Mass/Vol] 8.8 mg/dL 8.6-10.3 [facility] Carbon dioxide, total [Moles /volume] in Serum or PlasmaOrdered By: Piter Maharaj on 04-03-2023 CO2 [Moles/Vol] 25.0 mmol/L 21.0-31.0 [facility] Chloride [Moles/volume] in S darwin or PlasmaOrdered By: Piter Maharaj on 04-03-2023 Chloride [Moles/Vol] 110 mmol/L 98-107 [facility] Complete Blood Count Auto Di ffon 04-03-2023 Basophils (Bld) [#/Vol] 0.1 10*3/uL Normal 0.0-0.2 [facility] Comment on above: Order Comment: Reaso n for Exam Crohns disease Performed By: #### E SR, CBC #### [facility] [address] [place] [address] [place] Basophils/100 WBC (Bld) 0.9 % Normal . [facility] Comment on above: Order Comment: Reaso n for Exam Crohns disease Performed By: #### E SR, CBC #### [facility] [address] [place] [address] [place] Eosinophils (Bld) [#/Vol] 0.1 10*3/uL Normal 0.0-0.45 [facility] Comment on above: Order Comment: Reaso n for Exam Crohns disease Performed By: #### E SR, CBC #### [facility] [address] [place] [address] [place] Eosinophils/100 WBC (Bld) 1.3 % Normal . [facility] Comment on above: Order Comment: Reaso n for Exam Crohns disease Performed By: #### E SR, CBC #### [facility] [address] [place] [address] Erythrocyte distribution width (RBC) [Ratio] 12.1 % Normal 11.9-15.3 [facility] Comment on above: Order Comment: Reaso n for Exam Crohns disease Performed By: #### E SR, CBC #### [facility] [address] [place] [address] Hematocrit (Bld) [Volume fraction] 39.4 % Normal 34.0-46.4 [facility] Comment on above: Order Comment: Reaso n for Exam Crohns disease Performed By: #### E SR, CBC #### [facility] [address] [place] [address] Hemoglobin (Bld) [Mass/Vol] 13.5 g/dL Normal 11.8-15.4 [facility] Comment on above: Order Comment: Reaso n for Exam Crohns disease Performed By: #### E SR, CBC #### [address] Lymphocytes (Bld) [#/Vol] 1.9 10*3/uL Normal 1.00-4.8 [facility] Comment on above: Order Comment: Reaso n for Exam Crohns disease Performed By: #### E SR, CBC #### [place] [address] [place] Lymphocytes/100 WBC (Bld) 31.9 % Normal . [facility] Comment on above: Order Comment: Reaso n for Exam Crohns disease Performed By: #### E SR, CBC #### [facility] [address] [place] [address] MCH (RBC) [Entitic mass] 30.4 pg Normal 24.7-34.3 [facility] Comment on above: Order Comment: Reaso n for Exam Crohns disease Performed By: #### E SR, CBC #### [facility] [address] MCV (RBC) [Entitic vol] 88.7 fL Normal 80-100 [facility] Comment on above: Order Comment: Reaso n for Exam Crohns disease Performed By: #### E SR, CBC #### [facility] [address] [place] [address] Mean Corpuscular HGB Conc 34.2 g/dL Normal 32.0-35.0 [facility] Comment on above: Order Comment: Reaso n for Exam Crohns disease Performed By: #### E SR, CBC #### [address] Monocytes (Bld) [#/Vol] 0.5 10*3/uL Normal 0.0-0.8 [facility] Comment on above: Order Comment: Reaso n for Exam Crohns disease Performed By: #### E SR, CBC #### [facility] [address] [place] [address] Monocytes/100 WBC (Bld) 7.5 % Normal . [facility] Comment on above: Order Comment: Reaso n for Exam Crohns disease Performed By: #### E SR, CBC #### [address] Neutrophils (Bld) [#/Vol] 3.5 10*3/uL Normal 1.8-7.7 [facility] Comment on above: Order Comment: Reaso n for Exam Crohns disease Performed By: #### E SR, CBC #### [facility] [address] [place] [address] [place] Neutrophils/100 WBC (Bld) 58.4 % Normal . [facility] Comment on above: Order Comment: Reaso n for Exam Crohns disease Performed By: #### E SR, CBC #### [facility] [address] [place] [address] [place] NRBC% 0.2 /100{WBC} Normal 0-0.5 [facility] Comment on above: Order Comment: Reaso n for Exam Crohns disease Performed By: #### E SR, CBC #### [facility] [address] Platelet mean volume (Bld) [Entitic vol] 9.3 fL Normal 6.3-10.7 [facility] Comment on above: Order Comment: Reaso n for Exam Crohns disease Performed By: #### E SR, CBC #### [facility] [address] Platelets (Bld) [#/Vol] 189 10*3/uL Normal 150-450 [facility] Comment on above: Order Comment: Reaso n for Exam Crohns disease Performed By: #### E SR, CBC #### [address] RBC (Bld) [#/Vol] 4.44 10*6/uL Normal 3.60-5.00 [facility] Comment on above: Order Comment: Reaso n for Exam Crohns disease Performed By: #### E SR, CBC #### [address] WBC (Bld) [#/Vol] 6.1 10*3/uL Normal 3.8-11.6 [facility] Comment on above: Order Comment: Reaso n for Exam Crohns disease Performed By: #### E SR, CBC #### [facility] [address] [place] [address] Comprehensive Metabolic Pane bob 04-03-2023 Albumin [Mass/Vol] 4.6 g/dL Normal 3.5-5.7 [facility] Comment on above: Order Comment: Reaso n for Exam Crohns disease Performed By: #### C RP, CMP #### [address] Albumin/Globulin [Mass ratio] 2.3 {ratio} Normal [facility] Comment on above: Order Comment: Reaso n for Exam Crohns disease Performed By: #### C RP, CMP #### [place] [address] [facility] ALP [Catalytic activity/Vol] 50 U/L Normal 34-104 [facility] Comment on above: Order Comment: Reaso n for Exam Crohns disease Performed By: #### C RP, CMP #### [facility] [address] ALT [Catalytic activity/Vol] 8 U/L Normal 7-52 [facility] Comment on above: Order Comment: Reaso n for Exam Crohns disease Performed By: #### C RP, CMP #### [facility] [address] Anion gap [Moles/Vol] 8.9 mmol/L Normal 6.0-15.0 [facility] Comment on above: Order Comment: Reaso n for Exam Crohns disease Performed By: #### C RP, CMP #### [facility] [address] [place] [address] AST [Catalytic activity/Vol] 10 U/L Low 13-39 [facility] Comment on above: Order Comment: Reaso n for Exam Crohns disease Performed By: #### C RP, CMP #### [facility] [address] Bilirubin [Mass/Vol] 0.6 mg/dL Normal 0.3-1.0 [facility] Comment on above: Order Comment: Reaso n for Exam Crohns disease Performed By: #### C RP, CMP #### [facility] [address] [place] [address] [place] Calcium [Mass/Vol] 8.8 mg/dL Normal 8.6-10.3 [facility] Comment on above: Order Comment: Reaso n for Exam Crohns disease Performed By: #### C RP, CMP #### [facility] [address] [place] [address] [place] Chloride [Moles/Vol] 110 mmol/L High 98-107 [facility] Comment on above: Order Comment: Reaso n for Exam Crohns disease Performed By: #### C RP, CMP #### [facility] [address] [place] [address] [place] CO2 [Moles/Vol] 25.0 mmol/L Normal 21.0-31.0 [facility] Comment on above: Order Comment: Reaso n for Exam Crohns disease Performed By: #### C RP, CMP #### [facility] [address] Creatinine [Mass/Vol] 0.89 mg/dL Normal 0.60-1.20 [facility] Comment on above: Order Comment: Reaso n for Exam Crohns disease Performed By: #### C RP, CMP #### [facility] [address] [place] [address] [place] GFR/1.73 sq M.predicted MDRD (S/P/Bld) [Vol rate/Area] mL/min/{1.73_m2} Normal [facility] Comment on above: Order Comment: Reaso n for Exam Crohns disease Performed By: #### C RP, CMP #### [facility] [address] Globulin (S) [Mass/Vol] 2.0 g/dL Normal [facility] Comment on above: Order Comment: Reaso n for Exam Crohns disease Performed By: #### C RP, CMP #### [facility] [address] Glucose [Mass/Vol] 91 mg/dL Normal 70-100 [facility] Comment on above: Order Comment: Reaso n for Exam Crohns disease Result Comment: [place] Glucose Reference Range is dependent on time and content of last meal. Glucose of more than 200 mg/dL in a nonstressed, ambulatory subject supports the diagnosis of Diabetes Mellitus. ADA recommended reference range Performed By: #### C RP, CMP #### [facility] [address] [place] [address] [place] Potassium [Moles/Vol] 3.9 mmol/L Normal 3.5-5.1 [facility] Comment on above: Order Comment: Reaso n for Exam Crohns disease Performed By: #### C RP, CMP #### [facility] [address] Protein [Mass/Vol] 6.6 g/dL Normal 6.4-8.9 [facility] Comment on above: Order Comment: Reaso n for Exam Crohns disease Performed By: #### C RP, CMP #### [facility] [address] Sodium [Moles/Vol] 140 mmol/L Normal 136-145 [facility] Comment on above: Order Comment: Reaso n for Exam Crohns disease Performed By: #### C RP, CMP #### [facility] [address] Urea nitrogen [Mass/Vol] 12 mg/dL Normal 7-25 [facility] Comment on above: Order Comment: Reaso n for Exam Crohns disease Performed By: #### C RP, CMP #### [address] Creatinine [Mass/volume] in Serum or PlasmaOrdered By: Piter Maharaj on 04-03-2023 Creatinine [Mass/Vol] 0.89 mg/dL 0.60-1.20 [facility] Eosinophils Auto (Bld) [#/Vo l]Ordered By: Pitre Maharaj on 04-03-2023 Eosinophils (Bld) [#/Vol] 0.1 10*3/uL 0.0-0.45 [facility] Eosinophils/100 WBC Auto (Bl d)Ordered By: Piter Maharaj on 04-03-2023 Eosinophils/100 WBC (Bld) 1.3 % . [facility] Erythrocyte Sedimentation Ra sri 04-03-2023 ESR (Bld) [Velocity] mm/h Normal 0-19 [facility] Comment on above: Order Comment: Reaso n for Exam Crohns disease Result Comment: PERF ORMED BY: [place] [address] PATHOLOGIST MRP CONTROLLER JOANA SALCIDO M.D. Performed By: #### E SR, CBC #### [address] Erythrocyte distribution wid th Auto (RBC) [Ratio]Ordered By: Piter Maharaj on 04-03-2023 Erythrocyte distribution width (RBC) [Ratio] 12.1 % 11.9-15.3 [facility] Erythrocyte sedimentation ra te by Photometric methodOrdered By: Piter Maharaj on 04-03-2023 ESR Photometric method (Bld) [Velocity] < 1 mm/hr 0-19 [facility] Globulin Calc (S) [Mass/Vol] Ordered By: Piter Maharaj on 04-03-2023 Globulin (S) [Mass/Vol] 2.0 g/dL [facility] Glucose [Mass/volume] in Ser um or PlasmaOrdered By: Piter Maharaj on 04-03-2023 Glucose [Mass/Vol] 91 mg/dL 70-100 [facility] Comment on above: ADA recommended refe rence rangeRandom Glucose Reference Range is dependent on time and content of last meal. Glucose of more than 200 mg/dL in a nonstressed, ambulatory subject supports the diagnosis of Diabetes Mellitus. Hematocrit Auto (Bld) [Volum e fraction]Ordered By: Piter Maharaj on 04-03-2023 Hematocrit (Bld) [Volume fraction] 39.4 % 34.0-46.4 [facility] Hemoglobin [Mass/volume] in BloodOrdered By: Piter Maharaj on 04-03-2023 Hemoglobin (Bld) [Mass/Vol] 13.5 g/dL 11.8-15.4 [facility] Leukocytes [#/volume] correc ricardo for nucleated erythrocytes in Blood by Automated counOrdered By: Piter Maharaj on 04-03-2023 WBC corrected for nucl RBC Auto (Bld) [#/Vol] 6.1 10*3/uL 3.8-11.6 [facility] Lymphocytes Auto (Bld) [#/Vo l]Ordered By: Piter Maharaj on 04-03-2023 Lymphocytes (Bld) [#/Vol] 1.9 10*3/uL 1.00-4.8 [facility] Lymphocytes/100 WBC Auto (Bl d)Ordered By: Piter Maharaj on 04-03-2023 Lymphocytes/100 WBC (Bld) 31.9 % . [facility] MCH Auto (RBC) [Entitic mass ]Ordered By: Piter Maharaj on 04-03-2023 MCH (RBC) [Entitic mass] 30.4 pg 24.7-34.3 [facility] MCHC Auto (RBC) [Mass/Vol]Or dered By: Piter Maharaj on 04-03-2023 MCHC (RBC) [Mass/Vol] 34.2 g/dL 32.0-35.0 [facility] MCV Auto (RBC) [Entitic vol] Ordered By: Piter Maharaj on 04-03-2023 MCV (RBC) [Entitic vol] 88.7 fL 80-100 [facility] Monocytes Auto (Bld) [#/Vol] Ordered By: Piter Maharaj on 04-03-2023 Monocytes (Bld) [#/Vol] 0.5 10*3/uL 0.0-0.8 [facility] Monocytes/100 WBC Auto (Bld) Ordered By: Piter Maharaj on 04-03-2023 Monocytes/100 WBC (Bld) 7.5 % . [facility] Neutrophils Auto (Bld) [#/Vo l]Ordered By: Piter Maharaj on 04-03-2023 Neutrophils (Bld) [#/Vol] 3.5 10*3/uL 1.8-7.7 [facility] Neutrophils/100 WBC Auto (Bl d)Ordered By: Piter Maharaj on 04-03-2023 Neutrophils/100 WBC (Bld) 58.4 % . [facility] No Panel InformationOrdered By: Piter Maharaj on 04-03-2023 Estimated GFR (CKD-EPI) > 60.0 mL/Min [facility] Creatinine Clearance (Chem N/A [facility] Nucleated erythrocytes [Pres ence] in Blood by Automated countOrdered By: Piter Maharaj on 04-03-2023 Nucleated RBC Auto Ql (Bld) 0.2 /100{WBC} 0-0.5 [facility] Platelet mean volume Auto (B ld) [Entitic vol]Ordered By: Piter Maharaj on 04-03-2023 Platelet mean volume (Bld) [Entitic vol] 9.3 fL 6.3-10.7 [facility] Platelets Auto (Bld) [#/Vol] Ordered By: Piter Maharaj on 04-03-2023 Platelets (Bld) [#/Vol] 189 10*3/uL 150-450 [facility] Potassium [Moles/volume] in Serum or PlasmaOrdered By: Piter Maharaj on 04-03-2023 Potassium [Moles/Vol] 3.9 mmol/L 3.5-5.1 [facility] Protein [Mass/volume] in Ser um or PlasmaOrdered By: Piter Maharaj on 04-03-2023 Protein [Mass/Vol] 6.6 g/dL 6.4-8.9 [facility] RBC Auto (Bld) [#/Vol]Ordere d By: Piter Maharaj on 04-03-2023 RBC (Bld) [#/Vol] 4.44 10*6/uL 3.60-5.00 [facility] Serum or plasma albumin/glob ulin mass ratioOrdered By: Piter Maharaj on 04-03-2023 Albumin/Globulin [Mass ratio] 2.3 {ratio} [facility] Serum or plasma anion gap de terminationOrdered By: Piter Maharaj on 04-03-2023 Anion gap [Moles/Vol] 8.9 mmol/L 6.0-15.0 [facility] Sodium [Moles/volume] in Ser um or PlasmaOrdered By: Piter Maharaj on 04-03-2023 Sodium [Moles/Vol] 140 mmol/L 136-145 [facility] Urea nitrogen [Mass/volume] in Serum or PlasmaOrdered By: Piter Maharaj on 04-03-2023 Urea nitrogen [Mass/Vol] 12 mg/dL 7-25 [facility] WBC Auto (Bld) [#/Vol]Ordere d By: Piter Maharaj on 04-03-2023 WBC (Bld) [#/Vol] 6.1 10*3/uL 3.8-11.6 [facility] XR cervical spine w flex/ext on 04-03-2023 XR cervical spine w flex/[place] [address] XRay Report Signed Patient: Alejandra Lynn MR#: [id number] : 1990 Acct:[id number] Age/Sex: 32 / F ADM Date: 04/03/23 Loc: XD Room: Type: [facility] CLI Attending Dr: Dutch Pereyra MD [...] Brian Muhammad M.D.04/03/2023 7:24 PM Dictation Location: [place] [address] [address]cribed By: [facility] 04/03/231923 Dictated By: Brian Muhammad II, MD 04/03/231921 Signed By: 04/03/231923 [facility] PREG HCG QUALon 12-11-2022 , QUAL Negative Normal NEGATIVE [facility] Comment on above: Performed By: #### C MVM #### [facility] [address] [place] [address] Dr. Niurka Blount PREG HCG QUALon 12-04-2022 , QUAL Negative Normal NEGATIVE [facility] Comment on above: Performed By: #### P REG #### [facility] [address] [place] [address] Dr. Niurka Blount Coding Summary.on 11-17-2022 Coding Summary. CD:[id number] W w+PGhlYWQ+XL7TDTGqZ77 wxHJazV4rH6ARCEfVCzeb TGHWVNrVKnFfvjXgXM3ya XNjZXJu IC8+OA9gHCUyDeiavIEdp 6Q6cZO0T59npm1gQLoirR K1DQMfIoYsbxqta5gapGu 6IDcuNmluOyBt XOXlzN91TEX6jP87Pz22w LYlwFXdx0fwhOp3JiOxLL HjGHN5wDssPDcqt8WgFAC zC10bwHOau7K9 ESEjqViavKRtMcNumJJ4v O8ePLhekvqkw7kucalbLz q9rc43mITas0E7kXA0H6V bimL4JRVegOOc UmmuxFCWxP6cutokt4gdj rtuCpXdLJXpXYt4QEz0YI JyqIxfLeKsYW54ELW5OTT rvvJaD1OeVWYs ySzgVfN9j3D2Ml9KN0PLN urlJ9OGYGFPPVcmrMO+PC 59vd84M4LrVhlxEsz8FJV zWVY8mZO4zC2h VVIkUFczg0Z2dDF0C7Mzg yBmqv5ap8pxONBfBOomW1 1akMYtv2D1SHAquNA7ODN ojRihWoYecK92 Oyc+YCWgtVuff5GyAjyme 6hea7cbaYz8HdrmCJWwfx PbzFqtWFN7e0CzSa8rNQM nhJE3kPH3oQ6p FlSdDqA1UCzeK472GpPwv NAbYgrcT19fX8KgrHW+PH SoBhf3SFOdgOpaHI7lT7J hZGRpbmctbGVm vUrcFM7gWMUpcnccBBSll M6wXBObM0q7JvDuXgP0DL emH7TjYMFjdogaBs55eX6 fKdVkRnF0EWhe Y9CuniN5LYCjjUPhKBfcM DU7Z20ev8Z6FYLkKHPwBZ P2lYT0jE8ooTgdlxrkqXM mdDsgdmVydGlj LUfrSSzxN961PNDnyGmkI kNvZGluZyBEYXRlOiAgMD QvMDgvMjAyMzwvdGQ+PHR rVOG9iEjoNVVj cFQyJHrlPm0awViuqRifJ G7tLFMtnxddRWTsnU0wAR MxzHCtxJkgRD6xEMEoecc mj963LlBbRSS1 XHAyvHKaD5QooP7jNhIsJ SQbEDNjG7RveCJvRJkrO2 57ASmkQbR6NUJtzcDdG2W sLWFsaWduOiB0 u0F1Od0Hq0ExrmvdD2Xlp JBeDpGmZfltVSv5W7JxKh wvdHI+NL28LDDpVW62QSm 7KYX7jOlzPQbg BPUgK6DdmG2vRoYfEQXdA GRkOyc+PHRhYmxlIHdpZH RoPScxMDAlJyBzdHlsZT0 mYh2xBSJiIJKy aUgfvKKtHmGhe1gmKNOaC VpgMU5lxYxxR7UdbTE3TU Ejo2a9Xd96X66kV9SzrPK +KPRyjNA1tDE5 kE1qDwAqTkH7OAnxY595X pGlwWPlQaghv9cli7oyiH x7DvW5CRApzsKrmGolUHP 8x7GiJf18L39n IHdpZHRoPSIxNSUiIHZhb Ywmfa2orY2oXs3+PGNvbC J1kKD2tT5oZkAwVmQ8MEc xM262GkDarKRa Rymek8wym8wzzLe6EiCrU NWbxaHygArqDOA3g3UvBx 48A7FtgZkkc3EhDio0nr5 5aRGwa0N3eZJ3 Y0ZsVJOttzmmvVNrrZfwJ B6lUXBlnqhvQQKvnZ6dSW HhM9m0UdUfBzB2ZXuhG6O sedC7LNNdmBNg LVIjqMZZvF9dbisls6efp kpcIdQsNHDpCVu8EKd0FR SrrPicFpVwEMX0BlP8VQX 0pJOodL1poGkw urkvuX6nIqi+IAN4bSXxs RIABR4kKjinhGV+PHRkIH M0pUqkGBjeMQPozF7rHJS yD0g5ByPzRdB1 KWgjL3SeaqC3XWZaxGQoJ CWgxDAZeX7kkkasc2ejvd ynTnIsGYHdUWw4SYg1OLF saWduOiBsZWZ0 FnR0TCH4xOJdzC5fqTyrm fmwhD8nXjy+QmlydGggRG S3OIv2P5WqUcd8ICUueYp dEB2mkBEuXDxb Fz6ydCzllKeaLL5qWFLkx ugdu081OrWpk5rgRKGovL LdPEcgSJI9O55vd9R3SMZ gNALdMJF0lPP1 uZ0hdLejmlrcwDYouLpqf dPxtXegLLpxHFvwO342UF RnfCnoVyToRFz7W6WqQvj 5GSUnpAcbFS9c dHZzVHkwOn9vdUgmwHevL B2lRALfoeqce522DfBuu7 vyIFLyrJKsRZltRHZ1V04 aw4V5SGCtSANd PQI2fTI3yD4dgIwdkvypp GVmdDsgdmVydGljYWwtYW ggG326JKVccXztEfDhlLu 2A5RiYrr7MDPu iYaiYF7wyHLtZYqoTm9bv OhsaDbjVJ5zAYGcxbevr9 40LrOef5uxWROyyVMdTPw gMGF1M47ix4U0 JXIiLQHkONP8bDR3xC4dx GlnbjogbGVmdDsgdmVydG peADctZLxcE175JALsmUj nPlBhdGllbnQg PZyaXZa4K6TuZbgvmVX+P P58THHhIZ92gTLpkPEkg4 hveAk9WzGdBCEiTHG7pIc zKHrih3OeBUEd S06cuIWvj3P7YLWtrSrmu PAvIuAnjKR5fF9jRNveqy ulz6nmygfiRpvhn1lvwz4 5qT59G71eHHvo ZHRoPSIzMCUiIHZhbGlnb w4zfP7rUh5+LAIydXC1wL G2qD9cALNiUmG4TVflN42 9InRvcCIvPjxj r5agh8nkgFo2XwK1UGIwz gOtjWzhGIG8b6ClRr37A4 9sIHdpZHRoPSIyMCUiIHZ jlPlbjk5iiG5s Ii8+YPRkkSB7vJB3qQ9wP cSwItZ3XDydT284OfWqtN SqPrvyK53rF8ZvvXV+PHR vBui0AKUopLla OJ4ndQRxKYmzLm5wYTV0H wAsCeGjQDloH2EaCAKjko ycrunlgZE1DTCiOSGfiP4 4Gt0kxJhxDTVk cGRBtR0ozmgcd0flfwfjR sGsEVIoGBh5KRa8TIExuH nuZhXoZYF9ThU8ZSU3tHF rlZ5atEqwznwp sW8vO2GuSWRldtpzXy04n C5xYgWnAvQ0QZluRmt+SE 5NZz7WOlpzMTnTPTwpBLl vdGQ+PHRkIHN0 tEirWLfhNHJasO4mVBSvA 0n6WnNyBjM8EJpoB6RfZH CfzvatOs05oT0kEvHtWiR 5ELlrN8DnknL4 NJGyjKNoRAmcHGU9Z57ob 4E6OPWlTNRcAXF8eIN4lI 1hbGlnbjogbGVmdDsgdmV ydGljYWwtYWxp Y844JHLrfUigGhBpHxIbG nP4PUE8M7AmEcj5PMUeiO vaRK0ugPJlWIyvLs4cmWf lrEzhBA9nLKMj clccIWKcuT3bIKNwuZFav VfgGF1eVMDivjwew234Li QcZIE6TRIfqOAxD5BghF5 yOiAjMDAwMDAw S9OcrKWeGFhkS642EJlrM oD0DTPpcrQbA0SqPKXsdC qhIbE7s9D3Ku3yLsJEGVF yczwvdGQ+PHRk QFE4wOuwUBrzCZSgkF9zS ZSaF5k0FmKvYnW6TAsaE3 NsYXYmpqwuYg29cQ0uRdF zHkZ2HXrqF6Ta vaL3KZAspTAoZYvoQZT5C 41oo7G6EJTsTEJwJNR8uH G7rB2zgCrisejniZNusGa gdmVydGljYWwt ZJvmP764VHInoVfnRiJra WFsZTwvdGQ+RXVdWXD4vU xlLWknXOZtoQ6mCLNpU9i 9UlRdFtM1YZoj D1GiSUKxqodbMc01eN0dQ xFtMrM5OQlcC4AozdL4UJ ChsBSqBFkxGXI8S67hj0G 3OJNvBICeZGZ6 nYD3aS6rmAuefclmrJVha DsgdmVydGljYWwtYWxpZ2 66JDIvcYocPvulDaWCox8 qGD9nAinxlVP+ LO37zf13U6GyRfsyAlh4N TQiQEM0oUY8fM0sBISpTI tvk4J1qRN7T9FrglVffz7 np5vtAQHaYIso O91qsJZqv6D6XZShvRD1I BBjdSolRrDswV65Yhq+PG LcbIgju4FmSmsxx4yeu5w bwZz8UaBmBCNx qfGalZpqZKW3v7OsRr28J 29sIHdpZHRoPSIzMCUiIH YifYoepg8aiV5uHo6+PGN ewRI2cLU3gD2w MzBaAkD5CQdoM068FcCxy NDvYewvd9bnd2hmqCq2Lb DbZKNyppThbHbtOVW6i8E gZu31H9ZgqWcw m2AyByf8zm22tKAxn7K3j ZV9I9TvJASubsiseDObbX biMU5rJDGxugkpACZtsG5 oHOZhA2t0AxId GaO5UUeoF2WfpjY7ZCYev XYiMHUwaULYhW7xcvnay4 vilsdzPzDbNCYsYCx1MEq 0LWFsaWduOiBs EYF4OcO6IJD0cANimH5ji ZyzbavqwP0bIay+UGh5c2 lxpRVhOG4gxIN4DP31AT0 9wJXfi7X6uCL3 P0ViNNAyvdokjujfxGH5L TVfEFOdeQ20Us3atVwvMc 8mHIUrLJJ5XFOuxLFiA1O wqL1sNkInLZAh TDCgV2JmaZGxVRknQ461K PpmTqI9MSUcbxNkA8YqDU CcdXjlGbC2f0O7Mv2YZC9 6OH87LK15eLDm d6N5kNY4W6DiKDYvxpkgi mclxAR5WXYoVYEypW39Gb 1cmXckGm8hFYPnQZF1UUL jzHSyM4TnxN8b JdGtEUDoGERfW3OwfGMaF PjqN526MExlDnA8XZFydh NkN0HlFVJdwBiwGxI3n0Y 8Yb3RWt52JC82 AX41uJQpl2K7dVM5L6AvE XQehcggxcukjFD0HRDfPP KacX27Dx6wrAxmHn7fSSJ lUEY8KTAmzRQz S5VazX7lQbWdBCFhPFLnD 1EbuUYoBRfhJ842QAedZc D2FCJtehJwB0ExIQLkuLm uLeY1x3J7Vz1N QVgstut6P3ZeGymyiMH+P X74QAAzJL55dHRvwGIpr3 jimQl3JnIdLALlPNJ7sRv qPMyni3PaQPFy V52ipYHl (more content not included)... Normal [facility] Physician Orderon 11-07-2022 Physician Order [id number] [facility] Basic Metabolic Panelon 10-10 Anion gap [Moles/Vol] 12.5 mmol/L Normal 6.0-15.0 [facility] Comment on above: Order Comment: Reaso n for Exam Preprocedural examination Performed By: #### C BC, BMP #### [facility] [address] Calcium [Mass/Vol] 9.4 mg/dL Normal 8.6-10.3 [facility] Comment on above: Order Comment: Reaso n for Exam Preprocedural examination Result Comment: PERF ORMED BY: [place] [address] PATHOLOGIST MRP CONTROLLER JOANA SALCIDO M.D. Performed By: #### C BC, BMP #### [facility] [address] Chloride [Moles/Vol] 105 mmol/L Normal 98-107 [facility] Comment on above: Order Comment: Reaso n for Exam Preprocedural examination Performed By: #### C BC, BMP #### [facility] [address] CO2 [Moles/Vol] 26.4 mmol/L Normal 21.0-31.0 [facility] Comment on above: Order Comment: Reaso n for Exam Preprocedural examination Performed By: #### C BC, BMP #### [facility] [address] Creatinine [Mass/Vol] 0.91 mg/dL Normal 0.60-1.20 [facility] Comment on above: Order Comment: Reaso n for Exam Preprocedural examination Performed By: #### C BC, BMP #### [facility] [address] [place] [address] [place] GFR/1.73 sq M.predicted MDRD (S/P/Bld) [Vol rate/Area] mL/min/{1.73_m2} Normal [facility] Comment on above: Order Comment: Reaso n for Exam Preprocedural examination Performed By: #### C BC, BMP #### [address] Glucose [Mass/Vol] 91 mg/dL Normal 74-109 [facility] Comment on above: Order Comment: Reaso n for Exam Preprocedural examination Result Comment: [facility] Glucose Reference Range is dependent on time and content of last meal. Glucose of more than 200 mg/dL in a nonstressed, ambulatory subject supports the diagnosis of Diabetes Mellitus. ADA recommended reference range Performed By: #### C BC, BMP #### [place] [address] [place] Potassium [Moles/Vol] 3.9 mmol/L Normal 3.5-5.1 [facility] Comment on above: Order Comment: Reaso n for Exam Preprocedural examination Performed By: #### C BC, BMP #### [place] [address] [place] Sodium [Moles/Vol] 140 mmol/L Normal 136-145 [facility] Comment on above: Order Comment: Reaso n for Exam Preprocedural examination Performed By: #### C BC, BMP #### [place] [address] [place] Urea nitrogen [Mass/Vol] 15 mg/dL Normal 7-25 [facility] Comment on above: Order Comment: Reaso n for Exam Preprocedural examination Performed By: #### C BC, BMP #### [address] [place] [address] [place] Basophils Auto (Bld) [#/Vol] Ordered By: Gilbert Chauhan on 10-26-2022 Basophils (Bld) [#/Vol] 0.1 10*3/uL 0.0-0.2 [facility] Basophils/100 WBC Auto (Bld) Ordered By: Gilbert Chauhan on 10-26-2022 Basophils/100 WBC (Bld) 0.8 % . F [facility] Calcium [Mass/volume] in Ser um or PlasmaOrdered By: Gilbert Chauhan on 10-26-2022 Calcium [Mass/Vol] 9.4 mg/dL 8.6-10.3 [facility] Carbon dioxide, total [Moles /volume] in Serum or PlasmaOrdered By: Gilbert Chauhan on 10-26-2022 CO2 [Moles/Vol] 26.4 mmol/L 21.0-31.0 [facility] Chloride [Moles/volume] in S darwin or PlasmaOrdered By: Gilbert Chauhan on 10-26-2022 Chloride [Moles/Vol] 105 mmol/L 98-107 [facility] Complete Blood Count Auto Di ffon 10-26-2022 Basophils (Bld) [#/Vol] 0.1 10*3/uL Normal 0.0-0.2 [facility] Comment on above: Order Comment: Reaso n for Exam Preprocedural examination Result Comment: PERF ORMED BY: [place] [address] PATHOLOGIST MRP CONTROLLER JOANA SALCIDO M.D. Performed By: #### C BC, BMP #### [facility] [address] [place] [address] [place] Basophils/100 WBC (Bld) 0.8 % Normal . [facility] Comment on above: Order Comment: Reaso n for Exam Preprocedural examination Performed By: #### C BC, BMP #### [facility] [address] [place] [address] [place] Eosinophils (Bld) [#/Vol] 0.1 10*3/uL Normal 0.0-0.45 [facility] Comment on above: Order Comment: Reaso n for Exam Preprocedural examination Performed By: #### C BC, BMP #### [address] Eosinophils/100 WBC (Bld) 1.6 % Normal . [facility] Comment on above: Order Comment: Reaso n for Exam Preprocedural examination Performed By: #### C BC, BMP #### [address] Erythrocyte distribution width (RBC) [Ratio] 12.3 % Normal 11.9-15.3 [facility] Comment on above: Order Comment: Reaso n for Exam Preprocedural examination Performed By: #### C BC, BMP #### [address] Hematocrit (Bld) [Volume fraction] 39.7 % Normal 34.0-46.4 [facility] Comment on above: Order Comment: Reaso n for Exam Preprocedural examination Performed By: #### C BC, BMP #### [address] Hemoglobin (Bld) [Mass/Vol] 13.9 g/dL Normal 11.8-15.4 [facility] Comment on above: Order Comment: Reaso n for Exam Preprocedural examination Performed By: #### C BC, BMP #### [address] Lymphocytes (Bld) [#/Vol] 1.5 10*3/uL Normal 1.00-4.8 [facility] Comment on above: Order Comment: Reaso n for Exam Preprocedural examination Performed By: #### C BC, BMP #### [place] [address] [place] Lymphocytes/100 WBC (Bld) 20.0 % Normal . [facility] Comment on above: Order Comment: Reaso n for Exam Preprocedural examination Performed By: #### C BC, BMP #### [address] MCH (RBC) [Entitic mass] 30.9 pg Normal 24.7-34.3 [facility] Comment on above: Order Comment: Reaso n for Exam Preprocedural examination Performed By: #### C BC, BMP #### [address] MCV (RBC) [Entitic vol] 88.2 fL Normal 80-100 [facility] Comment on above: Order Comment: Reaso n for Exam Preprocedural examination Performed By: #### C BC, BMP #### [address] Mean Corpuscular HGB Conc 35.1 g/dL High 32.0-35.0 [facility] Comment on above: Order Comment: Reaso n for Exam Preprocedural examination Performed By: #### C BC, BMP #### [address] Monocytes (Bld) [#/Vol] 0.6 10*3/uL Normal 0.0-0.8 [facility] Comment on above: Order Comment: Reaso n for Exam Preprocedural examination Performed By: #### C BC, BMP #### [place] [address] [place] Monocytes/100 WBC (Bld) 7.6 % Normal . [facility] Comment on above: Order Comment: Reaso n for Exam Preprocedural examination Performed By: #### C BC, BMP #### [facility] [address] [place] [address] [place] Neutrophils (Bld) [#/Vol] 5.1 10*3/uL Normal 1.8-7.7 [facility] Comment on above: Order Comment: Reaso n for Exam Preprocedural examination Performed By: #### C BC, BMP #### [place] [address] [place] Neutrophils/100 WBC (Bld) 70.0 % Normal . [facility] Comment on above: Order Comment: Reaso n for Exam Preprocedural examination Performed By: #### C BC, BMP #### [address] [place] [address] [place] NRBC% 0.3 /100{WBC} Normal 0-0.5 [facility] Comment on above: Order Comment: Reaso n for Exam Preprocedural examination Performed By: #### C BC, BMP #### [facility] [address] Platelet mean volume (Bld) [Entitic vol] 9.7 fL Normal 6.3-10.7 [facility] Comment on above: Order Comment: Reaso n for Exam Preprocedural examination Performed By: #### C BC, BMP #### [facility] [address] Platelets (Bld) [#/Vol] 188 10*3/uL Normal 150-450 [facility] Comment on above: Order Comment: Reaso n for Exam Preprocedural examination Performed By: #### C BC, BMP #### [facility] [address] RBC (Bld) [#/Vol] 4.50 10*6/uL Normal 3.60-5.00 [facility] Comment on above: Order Comment: Reaso n for Exam Preprocedural examination Performed By: #### C BC, BMP #### [address] WBC (Bld) [#/Vol] 7.3 10*3/uL Normal 3.8-11.6 [facility] Comment on above: Order Comment: Reaso n for Exam Preprocedural examination Performed By: #### C BC, BMP #### [address] Creatinine [Mass/volume] in Serum or PlasmaOrdered By: Gilbert Chauhan on 10-26-2022 Creatinine [Mass/Vol] 0.91 mg/dL 0.60-1.20 [facility] Eosinophils Auto (Bld) [#/Vo l]Ordered By: Gilbert Chauhan on 10-26-2022 Eosinophils (Bld) [#/Vol] 0.1 10*3/uL 0.0-0.45 [facility] Eosinophils/100 WBC Auto (Bl d)Ordered By: Gilbert Chauhan on 10-26-2022 Eosinophils/100 WBC (Bld) 1.6 % . [facility] Erythrocyte distribution wid th Auto (RBC) [Ratio]Ordered By: Gilbert Chauhan on 10-26-2022 Erythrocyte distribution width (RBC) [Ratio] 12.3 % 11.9-15.3 [facility] Glucose [Mass/volume] in Ser um or PlasmaOrdered By: Gilbert Chauhan on 10-26-2022 Glucose [Mass/Vol] 91 mg/dL 74-109 [facility] Comment on above: ADA recommended refe rence rangeRandom Glucose Reference Range is dependent on time and content of last meal. Glucose of more than 200 mg/dL in a nonstressed, ambulatory subject supports the diagnosis of Diabetes Mellitus. Hematocrit Auto (Bld) [Volum e fraction]Ordered By: Gilbert Chauhan on 10-26-2022 Hematocrit (Bld) [Volume fraction] 39.7 % 34.0-46.4 [facility] Hemoglobin [Mass/volume] in BloodOrdered By: Gilbert Chauhan on 10-26-2022 Hemoglobin (Bld) [Mass/Vol] 13.9 g/dL 11.8-15.4 [facility] - Chemistry and C hemistry - challengeOrdered By: Gilbert Chauhan on 10-26-2022 GFR/1.73 sq M.predicted MDRD (S/P/Bld) [Vol rate/Area] mL/min/{1.73_m2} [facility] Leukocytes [#/volume] correc ricardo for nucleated erythrocytes in Blood by Automated counOrdered By: Gilbert Chauhan on 10-26-2022 WBC corrected for nucl RBC Auto (Bld) [#/Vol] 7.3 10*3/uL 3.8-11.6 [facility] Lymphocytes Auto (Bld) [#/Vo l]Ordered By: Gilbert Chauhan on 10-26-2022 Lymphocytes (Bld) [#/Vol] 1.5 10*3/uL 1.00-4.8 [facility] Lymphocytes/100 WBC Auto (Bl d)Ordered By: Gilbert Chauhan on 10-26-2022 Lymphocytes/100 WBC (Bld) 20.0 % . [facility] MCH Auto (RBC) [Entitic mass ]Ordered By: Gilbert Chauhan on 10-26-2022 MCH (RBC) [Entitic mass] 30.9 pg 24.7-34.3 [facility] MCHC Auto (RBC) [Mass/Vol]Or dered By: Gilbert Chauhan on 10-26-2022 MCHC (RBC) [Mass/Vol] 35.1 g/dL 32.0-35.0 [facility] MCV Auto (RBC) [Entitic vol] Ordered By: Gilbert Chauhan on 10-26-2022 MCV (RBC) [Entitic vol] 88.2 fL 80-100 [facility] Monocytes Auto (Bld) [#/Vol] Ordered By: Gilbert Chauhan on 10-26-2022 Monocytes (Bld) [#/Vol] 0.6 10*3/uL 0.0-0.8 [facility] Monocytes/100 WBC Auto (Bld) Ordered By: Gilbert Chauhan on 10-26-2022 Monocytes/100 WBC (Bld) 7.6 % . [facility] Neutrophils Auto (Bld) [#/Vo l]Ordered By: Gilbert Chauhan on 10-26-2022 Neutrophils (Bld) [#/Vol] 5.1 10*3/uL 1.8-7.7 [facility] Neutrophils/100 WBC Auto (Bl d)Ordered By: Gilbert Chauhan on 10-26-2022 Neutrophils/100 WBC (Bld) 70.0 % . [facility] No Panel InformationOrdered By: Gilbert Chauhan on 10-26-2022 Pharmacy Creatinine Clearance (Chem N/A [facility] Nucleated erythrocytes [Pres ence] in Blood by Automated countOrdered By: Gilbert Chauhan on 10-26-2022 Nucleated RBC Auto Ql (Bld) 0.3 /100{WBC} 0-0.5 [facility] Platelet mean volume Auto (B ld) [Entitic vol]Ordered By: Gilbert Chauhan on 10-26-2022 Platelet mean volume (Bld) [Entitic vol] 9.7 fL 6.3-10.7 [facility] Platelets Auto (Bld) [#/Vol] Ordered By: Gilbert Chauhan on 10-26-2022 Platelets (Bld) [#/Vol] 188 10*3/uL 150-450 [facility] Potassium [Moles/volume] in Serum or PlasmaOrdered By: Gilbert Chauhan on 10-26-2022 Potassium [Moles/Vol] 3.9 mmol/L 3.5-5.1 [facility] RBC Auto (Bld) [#/Vol]Ordere d By: Gilbert Chauhan on 10-26-2022 RBC (Bld) [#/Vol] 4.50 10*6/uL 3.60-5.00 [facility] Serum or plasma anion gap de terminationOrdered By: Gilbert Chauhan on 10-26-2022 Anion gap [Moles/Vol] 12.5 mmol/L 6.0-15.0 [facility] Sodium [Moles/volume] in Ser um or PlasmaOrdered By: Gilbert Chauhan on 10-26-2022 Sodium [Moles/Vol] 140 mmol/L 136-145 [facility] Urea nitrogen [Mass/volume] in Serum or PlasmaOrdered By: Gilbert Chauhan on 10-26-2022 Urea nitrogen [Mass/Vol] 15 mg/dL 7-25 [facility] WBC Auto (Bld) [#/Vol]Ordere d By: Gilbert Chauhan on 10-26-2022 WBC (Bld) [#/Vol] 7.3 10*3/uL 3.8-11.6 [facility] XR chest 2V*on 10-26-2022 XR chest 2V* [place] [address] XRay Report Signed Patient: Alejandra Lynn MR#: [id number] 819 : 1990 Acct:[id number] Age/Sex: 32 / F ADM Date: 10/26/22 Loc: XD Room: Type: [facility] Attending Dr: Gilbert Chauhan DPM Copies to: [...] Lares Jr., D.O.10/26/2022 5:47 PM Dictation Location: [place] [address] Transcribed By: [facility] 10/26/221746 Dictated By: Waylon Lares Jr, 10/26/221746 Signed By: 10/26/221746 Normal [facility] PREG HCG QUALon 10-09-2022 , QUAL Negative Normal NEGATIVE [facility] Comment on above: Performed By: #### P REG #### [facility] [address] [place] [address] HEAD WO CONon [...] DEANN THOMASON Date: 2022-09-21 14:32 Normal [facility] XR ankle LT min 3V*on 2022 XR ankle LT min 3V* [facility] [address] [place] [address] XRay Report Signed Patient: Alejandra Lynn MR#: [id number] : 1990 Acct:[id number] Age/Sex: 31 / F ADM Date: 08/23/22 Loc: XDUCLY Room: Type: [facility] Attending Dr: Marla Winslow APRN Copies to: Marla Winslow APRN Ordering Provider: Marla Winslow APRN Date of Service: 08/23/22 XR/XR ankle LT min 3V*: LEFT ANKLE INJURY 3views LEFTankle COMPARISON:None HISTORY: LEFT ankle injury No fracture, dislocation or focal soft tissue abnormality seen. XR/XR ankle LT min 3V* IMPRESSION: No acute findings. Impression dictated by: Carrington Flores M.D.08/23/2022 2:20 PM Dictation Location: [place] [address] Transcribed By: [facility] 08/23/22 1420 Dictated By: Carrington Flores DO 08/23/22 1345 Signed By: 08/23/22 1420 [facility] PREG HCG QUALon 08-21-2022 , QUAL Negative Normal NEGATIVE [facility] Comment on above: Performed By: #### S EDR #### [facility] [address] [place] [address] Dr. Niurka Blount CMV AB IGMon 07-21-2022 Cytomegalovirus (CMV) Ab, IgM <30.0 Normal 0.0-29.9 [facility] Comment on above: Result Comment: Nega tive <30.0 Equivocal 30.0 - 34.9 Positive >34.9 A positive result is generally indicative of acute infection, reactivation or persistent IgM production. Performed By: #### C MVM #### [facility] [address] [place] [address] Dr. Niurka Blount CMV AB, IGGon 07-21-2022 Cytomegalovirus (CMV) Ab, IgG <0.60 Normal 0.00-0.59 [facility] Comment on above: Result Comment: Nega tive <0.60 Equivocal 0.60 - 0.69 Positive >0.69 Performed By: #### C MVIGG #### [facility] [address] [place] [address] Dr. Niurka Blount CBC AUTO DIFFon 07-17-2022 BASO # 0.0 103/ul Normal 0.0-0.1 [facility] Comment on above: Performed By: #### S EDR #### [facility] [address] [place] [address] Dr. Niurka Blount Basophils/100 WBC (Bld) 0.4 % Normal 0.2-2.0 [facility] Comment on above: Performed By: #### S EDR #### [facility] [address] [place] [address] Dr. Niurka Blount EO # 0.0 103/ul Normal 0.0-0.7 [facility] Comment on above: Performed By: #### S EDR #### [facility] [address] [place] [address] Dr. Niurka Blount Eosinophils/100 WBC (Bld) 0.0 % Critically low 0.9-7.0 [facility] Comment on above: Performed By: #### S EDR #### [facility] [address] [place] [address] Dr. Niurka Blount Erythrocyte distribution width (RBC) [Ratio] 11.4 % Normal 11.0-15.0 [facility] Comment on above: Performed By: #### S EDR #### [facility] [address] [place] [address] Dr. Niurka Blount Hematocrit (Bld) [Volume fraction] 40.2 % Normal 36.0-48.0 [facility] Comment on above: Performed By: #### S EDR #### [facility] [address] [place] [address] Dr. Niurka Blount Hemoglobin (Bld) [Mass/Vol] 14.5 g/dL Normal 12.0-16.0 [facility] Comment on above: Performed By: #### S EDR #### [facility] [address] [place] [address] Dr. Niurka Blount IG # 0.08 10e3/ul Critically high 0.00-0.03 [facility] Comment on above: Performed By: #### S EDR #### [facility] [address] [address] [address] Niurka Blount IG % 0.8 % Critically high 0.0-0.5 [facility] Comment on above: Performed By: #### S EDR #### [facility] [address] [address] [address] Niurka Blount LYMPH # 1.3 103/ul Normal 1.2-3.8 [facility] Comment on above: Performed By: #### S EDR #### [facility] [address] [address] [address] Niurka Blount Lymphocytes/100 WBC (Bld) 12.0 % Critically low 20.5-60.0 [facility] Comment on above: Performed By: #### S EDR #### [facility] [address] [place] [address] Dr. Niurka Blount MANUAL DIFF REQ NO Normal [facility] Comment on above: Performed By: #### S EDR #### [facility] [address] [address] [address] Niurka Blount MCH (RBC) [Entitic mass] 30.5 pg Normal 26.7-34.0 [facility] Comment on above: Performed By: #### S EDR #### [facility] [address] [place] [address] Dr. Niurka Blount MCHC (RBC) [Mass/Vol] 36.1 g/dL Critically high 29.9-35.2 [facility] Comment on above: Performed By: #### S EDR #### [facility] [address] [place] [address] Dr. Niurka Blount MCV (RBC) [Entitic vol] 84.6 fL Normal 81.0-99.0 [facility] Comment on above: Performed By: #### S EDR #### [facility] [address] [place] [address] Dr. Niurka Blount MONO # 0.6 103/ul Normal 0.3-0.8 [facility] Comment on above: Performed By: #### S EDR #### [facility] [address] [address] [address] Niurka Blount Monocytes/100 WBC (Bld) 5.6 % Normal 1.7-12.0 [facility] Comment on above: Performed By: #### S EDR #### [facility] [address] [place] [address] Dr. Niurka Blount NEUT # 8.5 103/ul Critically high 1.4-6.5 [facility] Comment on above: Performed By: #### S EDR #### [facility] [address] [place] [address] Dr. Niurka Blount Neutrophils/100 WBC (Bld) 81.2 % Critically high 43.0-75.0 [facility] Comment on above: Performed By: #### S EDR #### [facility] [address] [place] [address] Dr. Niurka Blount Platelet mean volume (Bld) [Entitic vol] 10.6 fL Normal 9.5-13.5 [facility] Comment on above: Performed By: #### S EDR #### [facility] [address] [place] [address] Dr. Niurka Blount PLT 277 103/ul Normal 150-450 [facility] Comment on above: Performed By: #### S EDR #### [facility] [address] [place] [address] Dr. Niurka Blount RBC 4.75 106/ul Normal 4.20-5.40 [facility] Comment on above: Performed By: #### S EDR #### [facility] [address] [place] [address] Dr. Niukra Blount WBC 10.5 103/ul Normal 4.0-11.0 [facility] Comment on above: Performed By: #### S EDR #### [facility] [address] [place] [address] Dr. Niurka Blount CRPon 07-17-2022 CRP [Mass/Vol] mg/L Normal <=1.0 [facility] Comment on above: Performed By: #### C MVM #### [facility] [address] ABD/PELV W CONon [...] VANNA GARLAND Date: 2022-07-17 18:12 Normal [facility] ER URINE PROFILEon 2 Bilirubin Ql (U) Negative Normal NEGATIVE [facility] Comment on above: Performed By: #### E RUR #### [facility] [address] [address] [address] Niurka Blount Clarity (U) CLEAR Normal CLEAR [facility] Comment on above: Performed By: #### E RUR #### [facility] [address] [place] [address] Dr. Niurka Blount Color (U) LT. YELLOW Normal YELLOW [facility] Comment on above: Performed By: #### E RUR #### [facility] [address] [place] [address] Dr. Niurka Blount ERUAHD A micrscopic examination will be performed if indicated. Normal [facility] Comment on above: Performed By: #### E RUR #### [facility] [address] [place] [address] Dr. Niurka Blount Glucose Ql (U) Negative Normal NEGATIVE [facility] Comment on above: Performed By: #### E RUR #### [facility] [address] [place] [address] Dr. Niurka Blount Hemoglobin Ql (U) Negative Normal NEGATIVE [facility] Comment on above: Performed By: #### E RUR #### [facility] [address] [place] [address] Dr. Niurka Blount Ketones Ql (U) Negative Normal NEGATIVE [facility] Comment on above: Performed By: #### E RUR #### [facility] [address] [place] [address] Dr. Niurka Blount LEUKOCYTES Negative Normal NEGATIVE [facility] Comment on above: Performed By: #### E RUR #### [facility] [address] [place] [address] Dr. Niurka Blount Nitrite Ql (U) Negative Normal NEGATIVE [facility] Comment on above: Performed By: #### E RUR #### [facility] [address] [place] [address] Dr. Niurka Blount pH (U) 6.0 [pH] Normal 5-9 [facility] Comment on above: Performed By: #### E RUR #### [facility] [address] [place] [address] Dr. Niurka Blount SPEC GRAVITY 1.010 Normal 1.005-<=1.02 5 [facility] Comment on above: Performed By: #### E RUR #### [facility] [address] [place] [address] Dr. Niurka Blount UA PROTEIN Negative Normal NEGATIVE/ TRACE [facility] Comment on above: Performed By: #### E RUR #### [facility] [address] [place] [address] Dr. Niurka Blount UR MICRO IND NOT INDICATED Normal [facility] Comment on above: Performed By: #### E RUR #### [facility] [address] [place] [address] Dr. Niurka Blount Urobilinogen Qn (U) 0.2 {David'U}/dL Normal 0.2 - 1. 0 [facility] Comment on above: Performed By: #### E RUR #### [facility] [address] [place] [address] Dr. Niurka Blount LACTATE/LACTIC ACIDon 2021 Lactate [Moles/Vol] 1.6 mmol/L Normal 0.4-1.9 [facility] Comment on above: Performed By: #### E RUR #### [facility] [address] [place] [address] Dr. Niurka Blount LIPASEon 07-17-2022 Lipase [Catalytic activity/Vol] 105.0 U/L Normal 73.0-393.0 [facility] Comment on above: Performed By: #### C MVM #### [facility] [address] [place] [address] Dr. Niurka Blount PREG HCG QUALon 07-17-2022 , QUAL Negative Normal NEGATIVE [facility] Comment on above: Performed By: #### P REG #### [facility] [address] [place] [address] Dr. Niurka Blount PROF 14(COMP METB)on 022 Albumin [Mass/Vol] 4.4 g/dL Normal 3.4-5.0 [facility] Comment on above: Performed By: #### C MVM #### [facility] [address] [place] [address] Dr. Niurka Blount Albumin/Globulin [Mass ratio] 1.4 {ratio} Normal [facility] Comment on above: Performed By: #### C MVM #### [facility] [address] [place] [address] Dr. Niurka Blount ALP [Catalytic activity/Vol] 82 U/L Normal 46-116 [facility] Comment on above: Performed By: #### C MVM #### [facility] [address] [address] [address] Niurka Blount ALT [Catalytic activity/Vol] 16 U/L Normal 14-59 [facility] Comment on above: Performed By: #### C MVM #### [facility] [address] [place] [address] Dr. Niurka Blount Anion gap [Moles/Vol] 11.6 mmol/L Normal [facility] Comment on above: Performed By: #### C MVM #### [facility] [address] [place] [address] Dr. Niurka Blount AST [Catalytic activity/Vol] 7 U/L Critically low 15-37 [facility] Comment on above: Performed By: #### C MVM #### [facility] [address] [place] [address] Dr. Niurka Blount Bilirubin [Mass/Vol] 0.6 mg/dL Normal 0.2-1.0 [facility] Comment on above: Performed By: #### C MVM #### [facility] [address] [place] [address] Dr. Niurka Blount Calcium [Mass/Vol] 8.8 mg/dL Normal 8.5-10.1 [facility] Comment on above: Performed By: #### C MVM #### [facility] [address] [place] [address] Dr. Niurka Blount Chloride [Moles/Vol] 103 mmol/L Normal 98-107 [facility] Comment on above: Performed By: #### C MVM #### [facility] [address] [place] [address] Dr. Niurka Blount CO2 [Moles/Vol] 24.4 mmol/L Normal 21.0-32.0 [facility] Comment on above: Performed By: #### C MVM #### [facility] [address] [address] [address] Niurka Blount Creatinine [Mass/Vol] 0.67 mg/dL Normal 0.55-1.02 [facility] Comment on above: Performed By: #### C MVM #### [facility] [address] [address] [address] Niurka Blount EGFR-AF SLOVENIAN >60 Normal >=60 [facility] Comment on above: Performed By: #### C MVM #### [facility] [address] [address] [address] Niurka Blount EGFR-NON AF SLOVENIAN >60 Normal >=60 [facility] Comment on above: Performed By: #### C MVM #### [facility] [address] [address] [address] Niurka Blount Globulin (S) [Mass/Vol] 3.1 g/dL Normal [facility] Comment on above: Performed By: #### C MVM #### [facility] [address] [address] [address] Niurka Blount Glucose [Mass/Vol] 109 mg/dL Critically high 74-106 [facility] Comment on above: Performed By: #### C MVM #### [facility] [address] [place] [address] Dr. Niurka Blount Potassium [Moles/Vol] 4.0 mmol/L Normal 3.5-5.1 [facility] Comment on above: Performed By: #### C MVM #### [facility] [address] [address] [address] Niurka Blount Protein [Mass/Vol] 7.5 g/dL Normal 6.4-8.2 [facility] Comment on above: Performed By: #### C MVM #### [facility] [address] [address] [address] Niurka Blount Sodium [Moles/Vol] 135 mmol/L Critically low 136-145 [facility] Comment on above: Performed By: #### C MVM #### [facility] [address] [place] [address] Dr. Niurka Blount Urea nitrogen [Mass/Vol] 8.0 mg/dL Normal 7.0-18.0 [facility] Comment on above: Performed By: #### C MVM #### [facility] [address] [place] [address] Dr. Niurka Blount Urea nitrogen/Creatinine [Mass ratio] 11.9 mg/mg Normal [facility] Comment on above: Performed By: #### C MVM #### [facility] [address] [place] [address] Dr. Niurka Blount SED RATE [facility] 2021 SED RATE 3 mm/hr Normal <=20 [facility] Comment on above: Performed By: #### S EDR #### [facility] [address] [place] [address] Dr. Niurka Blount CBC AUTO DIFFon 07-13-2022 BASO # 0.1 103/ul Normal 0.0-0.1 [facility] Comment on above: Performed By: #### S EDR #### [facility] [address] [place] [address] Dr. Niurka Blount Basophils/100 WBC (Bld) 0.7 % Normal 0.2-2.0 [facility] Comment on above: Performed By: #### S EDR #### [facility] [address] [place] [address] Dr. Niurka Blount EO # 0.1 103/ul Normal 0.0-0.7 [facility] Comment on above: Performed By: #### S EDR #### [facility] [address] [place] [address] Dr. Niurka Blount Eosinophils/100 WBC (Bld) 1.3 % Normal 0.9-7.0 [facility] Comment on above: Performed By: #### S EDR #### [facility] [address] [place] [address] Dr. Niurka Blount Erythrocyte distribution width (RBC) [Ratio] 11.3 % Normal 11.0-15.0 [facility] Comment on above: Performed By: #### S EDR #### [facility] [address] [place] [address] Dr. Niurka Blount Hematocrit (Bld) [Volume fraction] 40.4 % Normal 36.0-48.0 [facility] Comment on above: Performed By: #### S EDR #### [facility] [address] [place] [address] Dr. Niurka Blount Hemoglobin (Bld) [Mass/Vol] 14.2 g/dL Normal 12.0-16.0 [facility] Comment on above: Performed By: #### S EDR #### [facility] [address] [place] [address] Dr. Niurka Blount IG # 0.02 10e3/ul Normal 0.00-0.03 [facility] Comment on above: Performed By: #### S EDR #### [facility] [address] [place] [address] Dr. Niurka Blount IG % 0.2 % Normal 0.0-0.5 [facility] Comment on above: Performed By: #### S EDR #### [facility] [address] [place] [address] Dr. Niurka Blount LYMPH # 1.9 103/ul Normal 1.2-3.8 [facility] Comment on above: Performed By: #### S EDR #### [facility] [address] [place] [address] Dr. Niurka Blount Lymphocytes/100 WBC (Bld) 22.1 % Normal 20.5-60.0 [facility] Comment on above: Performed By: #### S EDR #### [facility] [address] [place] [address] Dr. Niurka Blount MANUAL DIFF REQ NO Normal [facility] Comment on above: Performed By: #### S EDR #### [facility] [address] [place] [address] Dr. Niurka Blount MCH (RBC) [Entitic mass] 30.0 pg Normal 26.7-34.0 [facility] Comment on above: Performed By: #### S EDR #### [facility] [address] [place] [address] Dr. Niurka Blount MCHC (RBC) [Mass/Vol] 35.1 g/dL Normal 29.9-35.2 [facility] Comment on above: Performed By: #### S EDR #### [facility] [address] [place] [address] Dr. Niurka Blount MCV (RBC) [Entitic vol] 85.4 fL Normal 81.0-99.0 [facility] Comment on above: Performed By: #### S EDR #### [facility] [address] [place] [address] Dr. Niurka Blount MONO # 0.6 103/ul Normal 0.3-0.8 [facility] Comment on above: Performed By: #### S EDR #### [facility] [address] [place] [address] Dr. Niurka Blount Monocytes/100 WBC (Bld) 6.8 % Normal 1.7-12.0 [facility] Comment on above: Performed By: #### S EDR #### [facility] [address] [place] [address] Dr. Niurka Blount NEUT # 6.0 103/ul Normal 1.4-6.5 [facility] Comment on above: Performed By: #### S EDR #### [facility] [address] [place] [address] Dr. Niurka Blount Neutrophils/100 WBC (Bld) 68.9 % Normal 43.0-75.0 [facility] Comment on above: Performed By: #### S EDR #### [facility] [address] [place] [address] Dr. Niurka Blount Platelet mean volume (Bld) [Entitic vol] 10.7 fL Normal 9.5-13.5 [facility] Comment on above: Performed By: #### S EDR #### [facility] [address] [place] [address] Dr. Niurka Blount PLT 247 103/ul Normal 150-450 [facility] Comment on above: Performed By: #### S EDR #### [facility] [address] [place] [address] Dr. Niurka Blount RBC 4.73 106/ul Normal 4.20-5.40 [facility] Comment on above: Performed By: #### S EDR #### [facility] [address] [place] [address] Dr. Niurka Blount WBC 8.7 103/ul Normal 4.0-11.0 [facility] Comment on above: Performed By: #### S EDR #### [facility] [address] [place] [address] Dr. Niurka Blount FREE T3on 07-13-2022 FREE T3 2.53 pg/mlL Normal 2.18-3.98 [facility] Comment on above: Performed By: #### E RUR #### [facility] [address] [place] [address] Dr. Niurka Blount PROF 14(COMP METB)on 022 Albumin [Mass/Vol] 4.3 g/dL Normal 3.4-5.0 [facility] Comment on above: Performed By: #### E RUR #### [facility] [address] [place] [address] Dr. Niurka Blount Albumin/Globulin [Mass ratio] 1.5 {ratio} Normal [facility] Comment on above: Performed By: #### E RUR #### [facility] [address] [place] [address] Dr. Niurka Blount ALP [Catalytic activity/Vol] 79 U/L Normal 46-116 [facility] Comment on above: Performed By: #### E RUR #### [facility] [address] [place] [address] Dr. Niurka Blount ALT [Catalytic activity/Vol] 14 U/L Normal 14-59 [facility] Comment on above: Performed By: #### E RUR #### [facility] [address] [place] [address] Dr. Niurka Blount Anion gap [Moles/Vol] 11.5 mmol/L Normal [facility] Comment on above: Performed By: #### E RUR #### [facility] [address] [place] [address] Dr. Niurka Blount AST [Catalytic activity/Vol] 10 U/L Critically low 15-37 [facility] Comment on above: Performed By: #### E RUR #### [facility] [address] [place] [address] Dr. Niurka Blount Bilirubin [Mass/Vol] 0.4 mg/dL Normal 0.2-1.0 [facility] Comment on above: Performed By: #### E RUR #### [facility] [address] [place] [address] Dr. Niurka Blount Calcium [Mass/Vol] 8.8 mg/dL Normal 8.5-10.1 [facility] Comment on above: Performed By: #### E RUR #### [facility] [address] [place] [address] Dr. Niurka Blount Chloride [Moles/Vol] 103 mmol/L Normal 98-107 [facility] Comment on above: Performed By: #### E RUR #### [facility] [address] [place] [address] Dr. Niurka Blount CO2 [Moles/Vol] 26.2 mmol/L Normal 21.0-32.0 [facility] Comment on above: Performed By: #### E RUR #### [facility] [address] [place] [address] Dr. Niurka Blount Creatinine [Mass/Vol] 0.71 mg/dL Normal 0.55-1.02 [facility] Comment on above: Performed By: #### E RUR #### [facility] [address] [place] [address] Dr. Niurka Blount EGFR-AF SLOVENIAN >60 Normal >=60 [facility] Comment on above: Performed By: #### E RUR #### [facility] [address] [place] [address] Dr. Niurka Blount EGFR-NON AF SLOVENIAN >60 Normal >=60 [facility] Comment on above: Performed By: #### E RUR #### [facility] [address] [address] [address] Niurka Blount Globulin (S) [Mass/Vol] 2.9 g/dL Normal [facility] Comment on above: Performed By: #### E RUR #### [facility] [address] [address] [address] Niurka Blount Glucose [Mass/Vol] 119 mg/dL Critically high 74-106 [facility] Comment on above: Performed By: #### E RUR #### [facility] [address] [address] [address] Niurka Blount Potassium [Moles/Vol] 3.7 mmol/L Normal 3.5-5.1 [facility] Comment on above: Performed By: #### E RUR #### [facility] [address] [address] [address] Niurka Blount Protein [Mass/Vol] 7.2 g/dL Normal 6.4-8.2 [facility] Comment on above: Performed By: #### E RUR #### [facility] [address] [address] [address] Niurka Blount Sodium [Moles/Vol] 137 mmol/L Normal 136-145 [facility] Comment on above: Performed By: #### E RUR #### [facility] [address] [address] [address] Niurka Blount Urea nitrogen [Mass/Vol] 11.0 mg/dL Normal 7.0-18.0 [facility] Comment on above: Performed By: #### E RUR #### [facility] [address] [address] [address] Niurka Blount Urea nitrogen/Creatinine [Mass ratio] 15.5 mg/mg Normal [facility] Comment on above: Performed By: #### E RUR #### [facility] [address] [address] [address] Niurka Blount TSHon 07-13-2022 TSH 0.543 uIU/mL Normal 0.358-3.740 [facility] Comment on above: Performed By: #### E RUR #### [facility] [address] [address] [address] Niurka Blount QUANTIFERON TB GOLD PLUSon 0 05-01-2022 QuantiFERON Criteria Comment Normal [facility] Comment on above: Result Comment: Morris [...] test. Performed By: #### Q NTTB #### [facility] [address] [place] [address] Dr. Niurka Blount QuantiFERON Incubation Incubation performed. Normal [facility] Comment on above: Performed By: #### Q NTTB #### [facility] [address] [place] [address] Dr. Niurka Blount QuantiFERON Mitogen Value >10.00 Normal [facility] Comment on above: Performed By: #### Q NTTB #### [facility] [address] [place] [address] Dr. Niurka Blount QuantiFERON Nil Value 0.02 IU/mL Normal [facility] Comment on above: Performed By: #### Q NTTB #### [facility] [address] [place] [address] Dr. Niurka Blount QuantiFERON TB1 Ag Value 0.02 IU/mL Normal [facility] Comment on above: Performed By: #### Q NTTB #### [facility] [address] [place] [address] Dr. Niurka Blount QuantiFERON TB2 Ag Value 0.02 IU/mL Normal [facility] Comment on above: Performed By: #### Q NTTB #### [facility] [address] [place] [address] Dr. Niurka Blount QuantiFERON-TB Gold Plus Negative [...] methodology Performed By: #### Q NTTB #### [facility] [address] [place] [address] Dr. Niurka Blount HEP B COREon 04-29-2022 Hep B Core Ab, Tot Negative Normal Negative [facility] Comment on above: Performed By: #### E RUR #### [facility] [address] [place] [address] Dr. Niurka Blount HEP B SURFACE ANTIGEN SCREEN on 04-29-2022 HBsAg Screen Negative Normal Negative [facility] Comment on above: Performed By: #### E RUR #### [facility] [address] [place] [address] Dr. Niurka Blount CBC AUTO DIFFon 04-27-2022 BASO # 0.0 103/ul Normal 0.0-0.1 [facility] [facility] Comment on above: Performed By: #### E RUR #### [facility] [address] [place] [address] Dr. Niurka Blount Basophils/100 WBC (Bld) 0.5 % Normal 0.2-2.0 [facility] Comment on above: Performed By: #### E RUR #### [facility] [address] [place] [address] Dr. Niurka Blount EO # 0.1 103/ul Normal 0.0-0.7 [facility] Comment on above: Performed By: #### E RUR #### [facility] [address] [place] [address] Dr. Niurka Blount Eosinophils/100 WBC (Bld) 1.5 % Normal 0.9-7.0 [facility] Comment on above: Performed By: #### E RUR #### [facility] [address] [place] [address] Dr. Niurka Blount Erythrocyte distribution width (RBC) [Ratio] 11.9 % Normal 11.0-15.0 [facility] Comment on above: Performed By: #### E RUR #### [facility] [address] [place] [address] Dr. Niurka Blount Hematocrit (Bld) [Volume fraction] 39.2 % Normal 36.0-48.0 [facility] Comment on above: Performed By: #### E RUR #### [facility] [address] [place] [address] Dr. Niurka Blount Hemoglobin (Bld) [Mass/Vol] 13.9 g/dL Normal 12.0-16.0 [facility] Comment on above: Performed By: #### E RUR #### [facility] [address] [place] [address] Dr. Niurka Blount IG # 0.03 10e3/ul Normal 0.00-0.03 [facility] Comment on above: Performed By: #### E RUR #### [facility] [address] [place] [address] Dr. Nuirka Blount IG % 0.4 % Normal 0.0-0.5 [facility] Comment on above: Performed By: #### E RUR #### [facility] [address] [place] [address] Dr. Niurka Blount LYMPH # 2.2 103/ul Normal 1.2-3.8 [facility] Comment on above: Performed By: #### E RUR #### [facility] [address] [place] [address] Dr. Niurka Blount Lymphocytes/100 WBC (Bld) 26.3 % Normal 20.5-60.0 [facility] Comment on above: Performed By: #### E RUR #### [facility] [address] [place] [address] Dr. Niurka Blount MANUAL DIFF REQ NO Normal [facility] Comment on above: Performed By: #### E RUR #### [facility] [address] [place] [address] Dr. Niurka Blount MCH (RBC) [Entitic mass] 30.5 pg Normal 26.7-34.0 [facility] Comment on above: Performed By: #### E RUR #### [facility] [address] [address] [address] Niurka Blount MCHC (RBC) [Mass/Vol] 35.5 g/dL Critically high 29.9-35.2 [facility] Comment on above: Performed By: #### E RUR #### [facility] [address] [place] [address] Dr. Niurka Blount MCV (RBC) [Entitic vol] 86.2 fL Normal 81.0-99.0 [facility] Comment on above: Performed By: #### E RUR #### [facility] [address] [place] [address] Dr. Niurka Blount MONO # 0.6 103/ul Normal 0.3-0.8 [facility] Comment on above: Performed By: #### E RUR #### [facility] [address] [place] [address] Dr. Niurka Blount Monocytes/100 WBC (Bld) 7.2 % Normal 1.7-12.0 [facility] Comment on above: Performed By: #### E RUR #### [facility] [address] [place] [address] Dr. Niurka Blount NEUT # 5.4 103/ul Normal 1.4-6.5 [facility] Comment on above: Performed By: #### E RUR #### [facility] [address] [place] [address] Dr. Niurka Blount Neutrophils/100 WBC (Bld) 64.1 % Normal 43.0-75.0 [facility] Comment on above: Performed By: #### E RUR #### [facility] [address] [place] [address] Dr. Niurka Blount Platelet mean volume (Bld) [Entitic vol] 10.4 fL Normal 9.5-13.5 [facility] Comment on above: Performed By: #### E RUR #### [facility] [address] [place] [address] Dr. Niurka Blount PLT 235 103/ul Normal 150-450 [facility] Comment on above: Performed By: #### E RUR #### [facility] [address] [place] [address] Dr. Niurka Blount RBC 4.55 106/ul Normal 4.20-5.40 [facility] Comment on above: Performed By: #### E RUR #### [facility] [address] [place] [address] Dr. Niurka Blount WBC 8.5 103/ul Normal 4.0-11.0 [facility] Comment on above: Performed By: #### E RUR #### [facility] [address] [place] [address] Dr. Niurka Blount CRPon 04-27-2022 CRP [Mass/Vol] mg/L Normal <=1.0 [facility] Comment on above: Performed By: #### C MP, CRP #### [facility] [address] [place] [address] Dr. Niurka Blount PROF 14(COMP METB)on 022 Albumin [Mass/Vol] 4.2 g/dL Normal 3.4-5.0 [facility] Comment on above: Performed By: #### C MP, CRP #### [facility] [address] [place] [address] Dr. Niurka Blount Albumin/Globulin [Mass ratio] 1.4 {ratio} Normal [facility] Comment on above: Performed By: #### C MP, CRP #### [facility] [address] [place] [address] Dr. Niurka Blount ALP [Catalytic activity/Vol] 80 U/L Normal 46-116 [facility] Comment on above: Performed By: #### C MP, CRP #### [facility] [address] [place] [address] Dr. Niurka Blount ALT [Catalytic activity/Vol] 26 U/L Normal 14-59 [facility] Comment on above: Performed By: #### C MP, CRP #### [facility] [address] [place] [address] Dr. Niurka Blount Anion gap [Moles/Vol] 11.4 mmol/L Normal [facility] Comment on above: Performed By: #### C MP, CRP #### [facility] [address] [address] [address] Niurka Blount AST [Catalytic activity/Vol] 13 U/L Critically low 15-37 [facility] Comment on above: Performed By: #### C MP, CRP #### [facility] [address] [address] [address] Niurka Blount Bilirubin [Mass/Vol] 0.4 mg/dL Normal 0.2-1.0 [facility] Comment on above: Performed By: #### C MP, CRP #### [facility] [address] [address] [address] Niurka Blount Calcium [Mass/Vol] 8.8 mg/dL Normal 8.5-10.1 [facility] Comment on above: Performed By: #### C MP, CRP #### [facility] [address] [address] [address] Niurka Blount Chloride [Moles/Vol] 106 mmol/L Normal 98-107 [facility] Comment on above: Performed By: #### C MP, CRP #### [facility] [address] [address] [address] Niurka Blount CO2 [Moles/Vol] 26.5 mmol/L Normal 21.0-32.0 [facility] Comment on above: Performed By: #### C MP, CRP #### [facility] [address] [address] [address] Niurka Blount Creatinine [Mass/Vol] 0.80 mg/dL Normal 0.55-1.02 [facility] Comment on above: Performed By: #### C MP, CRP #### [facility] [address] [address] [address] Niurka Blount EGFR-AF SLOVENIAN >60 Normal >=60 [facility] Comment on above: Performed By: #### C MP, CRP #### [facility] [address] [address] [address] Niurka Blount EGFR-NON AF SLOVENIAN >60 Normal >=60 [facility] Comment on above: Performed By: #### C MP, CRP #### [facility] [address] [address] [address] Niurka Blount Globulin (S) [Mass/Vol] 3.0 g/dL Normal [facility] Comment on above: Performed By: #### C MP, CRP #### [facility] [address] [address] [address] Niurka Blount Glucose [Mass/Vol] 113 mg/dL Critically high 74-106 [facility] Comment on above: Performed By: #### C MP, CRP #### [facility] [address] [address] [address] Niurka Blount Potassium [Moles/Vol] 3.9 mmol/L Normal 3.5-5.1 [facility] Comment on above: Performed By: #### C MP, CRP #### [facility] [address] [place] [address] Dr. Niurka Blount Protein [Mass/Vol] 7.2 g/dL Normal 6.4-8.2 [facility] Comment on above: Performed By: #### C MP, CRP #### [facility] [address] [address] [address] Niurka Blount Sodium [Moles/Vol] 140 mmol/L Normal 136-145 [facility] Comment on above: Performed By: #### C MP, CRP #### [facility] [address] [address] [address] Niurka Blount Urea nitrogen [Mass/Vol] 9.0 mg/dL Normal 7.0-18.0 [facility] Comment on above: Performed By: #### C MP, CRP #### [facility] [address] [address] [address] Niurka Blount Urea nitrogen/Creatinine [Mass ratio] 11.2 mg/mg Normal [facility] Comment on above: Performed By: #### C MP, CRP #### [facility] [address] [address] [address] Niurka Blount SED RATE [facility] 2021 SED RATE 2 mm/hr Normal <=20 [facility] Comment on above: Performed By: #### E RUR #### [facility] [address] [address] [address] Niurka Blount MRI CSPINE WO CONon [...] [facility] 4 VIEWSon 06-3 XR [...] ISABEL CHAVEZ Date: 2022-02-08 17:24 Normal [facility] Albumin [Mass/volume] in Ser um or PlasmaOrdered By: Piter Maharaj on 09-18-2021 Albumin [Mass/Vol] 4.3 g/dL 3.2-5.5 [facility] Basophils Auto (Bld) [#/Vol] Ordered By: Piter Maharaj on 09-18-2021 Basophils (Bld) [#/Vol] 0.0 10*3/uL 0.0-0.2 [facility] Basophils/100 WBC Auto (Bld) Ordered By: Piter Maharaj on 09-18-2021 Basophils/100 WBC (Bld) 0.7 % . [facility] C reactive protein [Mass/vol ume] in Serum or PlasmaOrdered By: Piter Maharaj on 09-18-2021 CRP [Mass/Vol] 1.1 mg/dL 0.0-1.0 [facility] Creatinine and Glomerular fi ltration rate.predicted panel (S/P/Bld)Ordered By: Piter Maharaj on 09-18-2021 Creatinine [Mass/Vol] 0.73 mg/dL 0.44-1.03 [facility] Eosinophils Auto (Bld) [#/Vo l]Ordered By: Piter Maharaj on 09-18-2021 Eosinophils (Bld) [#/Vol] 0.1 10*3/uL 0.0-0.45 [facility] Eosinophils/100 WBC Auto (Bl d)Ordered By: Piter Maharaj on 09-18-2021 Eosinophils/100 WBC (Bld) 1.9 % . [facility] Erythrocyte distribution wid th Auto (RBC) [Ratio]Ordered By: Piter Maharaj on 09-18-2021 Erythrocyte distribution width (RBC) [Ratio] 12.0 % 11.9-15.3 [facility] Erythrocyte sedimentation ra te by Photometric methodOrdered By: Piter Maharaj on 09-18-2021 ESR Photometric method (Bld) [Velocity] 3 mm/hr 0-19 [facility] Estimated glomerular filtrat ion rate (GFR) non- AmericanOrdered By: Piter Maharaj on 09-18-2021 GFR/1.73 sq M.predicted among non-blacks MDRD (S/P/Bld) [Vol rate/Area] > 60 mL/Min [facility] Globulin Calc (S) [Mass/Vol] Ordered By: Piter Maharaj on 09-18-2021 Globulin (S) [Mass/Vol] 2.2 g/dL [facility] Hematocrit Auto (Bld) [Volum e fraction]Ordered By: Piter Maharaj on 09-18-2021 Hematocrit (Bld) [Volume fraction] 42.2 % 34.0-46.4 [facility] Hemoglobin [Mass/volume] in BloodOrdered By: Piter Maharaj on 09-18-2021 Hemoglobin (Bld) [Mass/Vol] 14.6 g/dL 11.8-15.4 [facility] - Hematology and Cell countsOrdered By: Piter Maharaj on 09-18-2021 Nucleated RBC/100 WBC (Bld) [Ratio] 0.1 % 0-0.5 [facility] Leukocytes [#/volume] in Blo od by Automated countOrdered By: Piter Maharaj on 09-18-2021 WBC (Bld) [#/Vol] 6.6 10*3/uL 4.5-11.0 [facility] Lymphocytes Auto (Bld) [#/Vo l]Ordered By: Piter Maharaj on 09-18-2021 Lymphocytes (Bld) [#/Vol] 2.3 10*3/uL 1.00-4.8 [facility] Lymphocytes/100 WBC Auto (Bl d)Ordered By: Piter Maharaj on 09-18-2021 Lymphocytes/100 WBC (Bld) 34.0 % . [facility] MCH Auto (RBC) [Entitic mass ]Ordered By: Piter Maharaj on 09-18-2021 MCH (RBC) [Entitic mass] 30.0 pg 24.7-34.3 [facility] MCHC Auto (RBC) [Mass/Vol]Or dered By: Piter Maharaj on 09-18-2021 MCHC (RBC) [Mass/Vol] 34.6 g/dL 32.0-35.0 [facility] MCV Auto (RBC) [Entitic vol] Ordered By: Piter Maharaj on 09-18-2021 MCV (RBC) [Entitic vol] 86.6 fL 80-100 [facility] Monocytes Auto (Bld) [#/Vol] Ordered By: Piter Maharaj on 09-18-2021 Monocytes (Bld) [#/Vol] 0.5 10*3/uL 0.0-0.8 [facility] Monocytes/100 WBC Auto (Bld) Ordered By: Piter Maharaj on 09-18-2021 Monocytes/100 WBC (Bld) 8.2 % . [facility] Neutrophils Auto (Bld) [#/Vo l]Ordered By: Piter Maharaj on 09-18-2021 Neutrophils (Bld) [#/Vol] 3.7 10*3/uL 1.8-7.7 [facility] Neutrophils/100 WBC Auto (Bl d)Ordered By: Piter Maharaj on 09-18-2021 Neutrophils/100 WBC (Bld) 55.2 % . [facility] No Panel InformationOrdered By: Piter Maharaj on 09-18-2021 Estimated GFR () > 60 mL/Min [facility] Comment on above: GFR estimated refere nce range: According to KDOQI guidelines, <60 ml/min/1.73m2 is sufficient to diagnose a patient with chronic kidney disease. Pharmacy Creatinine Clearance (Chem 102.56 [facility] Platelet mean volume Auto (B ld) [Entitic vol]Ordered By: Piter Maharaj on 09-18-2021 Platelet mean volume (Bld) [Entitic vol] 8.8 fL 6.3-10.7 [facility] Platelets Auto (Bld) [#/Vol] Ordered By: Piter Maharaj on 09-18-2021 Platelets (Bld) [#/Vol] 222 10*3/uL 150-450 [facility] Protein [Mass/volume] in Ser um or PlasmaOrdered By: Piter Maharaj on 09-18-2021 Protein [Mass/Vol] 6.5 g/dL 6.1-7.9 [facility] RBC Auto (Bld) [#/Vol]Ordere d By: Piter Maharaj on 09-18-2021 RBC (Bld) [#/Vol] 4.87 10*6/uL 3.60-5.00 [facility] Serum or plasma alanine rodriguez otransferase measurement without P-5'-P (enzymatic activiOrdered By: Piter Maharaj on 09-18-2021 ALT No additional P-5'-P [Catalytic activity/Vol] 23 U/L 10-60 [facility] Serum or plasma albumin/glob ulin mass ratioOrdered By: Piter Maharaj on 09-18-2021 Albumin/Globulin [Mass ratio] 2.0 {ratio} [facility] Serum or plasma alkaline susan sphatase measurement (enzymatic activity/volume)Ordered By: Piter Maharaj on 09-18-2021 ALP [Catalytic activity/Vol] 84 U/L 32-92 [facility] Serum or plasma aspartate am inotransferase measurement (enzymatic activity/volume)Ordered By: Piter Maharaj on 09-18-2021 AST [Catalytic activity/Vol] 20 U/L 10-42 [facility] Serum or plasma calcium toni urement (mass/volume)Ordered By: Piter Maharaj on 09-18-2021 Calcium [Mass/Vol] 9.3 mg/dL 8.2-10.2 [facility] Serum or plasma chloride carina surement (moles/volume)Ordered By: Piter Maharaj on 09-18-2021 Chloride [Moles/Vol] 103 mmol/L 95-114 [facility] Serum or plasma glucose toni urement (mass/volume)Ordered By: Piter Maharaj on 09-18-2021 Glucose [Mass/Vol] 80 mg/dL 70-100 [facility] Comment on above: ADA recommended refe rence rangeRandom Glucose Reference Range is dependent on time and content of last meal. Glucose of more than 200 mg/dL in a nonstressed, ambulatory subject supports the diagnosis of Diabetes Mellitus. Serum or plasma potassium me asurement (moles/volume)Ordered By: Piter Maharaj on 09-18-2021 Potassium [Moles/Vol] 4.0 mmol/L 3.5-5.1 [facility] Serum or plasma sodium measu rement (moles/volume)Ordered By: Piter Maharaj on 09-18-2021 Sodium [Moles/Vol] 139 mmol/L 136-146 [facility] Serum or plasma total biliru bin measurement (mass/volume)Ordered By: Piter Maharaj on 09-18-2021 Bilirubin [Mass/Vol] 0.8 mg/dL 0.3-1.2 [facility] Serum or plasma total carbon dioxide measurement (moles/volume)Ordered By: Piter Maharaj on 09-18-2021 CO2 [Moles/Vol] 27.0 mmol/L 22.0-30.0 [facility] Serum or plasma urea nitroge n measurement (mass/volume)Ordered By: Piter Maharaj on 09-18-2021 Urea nitrogen [Mass/Vol] 14 mg/dL 9- [facility] ESR Westergren method (Bld) [Velocity]on 04-11-2020 ESR (Bld) [Velocity] 2 mm/h 0-32 [facility] Comment on above: Performed at: [address] [place] [id number] Director: Gerry Martinez PhD, Phone: [phone] Laboratory - Hematology and Cell countson 04-11-2020 WBC (Bld) [#/Vol] 5.0 10*3/uL 4.5-11.0 [facility] Vital Signs Date Time Vital Sign Value Performing Clinician Facility 01-24-2024 11:17-0400 Body height 157.48 cm [facility] 01-24-2024 11:17-0400 Body mass index (BMI) [Ratio] 25 kg/m2 [facility] 01-24-2024 11:17-0400 Body weight 62.14 kg [facility] 09-17-2023 13:30-0500 Body height 157.48 cm Piter Maharaj Other [facility] 09-17-2023 13:30-0500 Body mass index (BMI) [Ratio] 23.34 kg/m2 Piter Nicko Other [facility] 09-17-2023 13:30-0500 Body weight 57.88 kg Piter Nicko Other [facility] 04-04-2023 10:40-0400 Body height 157.48 cm Dutch Pereyra Other [facility] 04-04-2023 10:40-0400 Body mass index (BMI) [Ratio] 23.41 kg/m2 Dutch Pereyra Other [facility] 04-04-2023 10:40-0400 Body weight 58.06 kg Dutch Pereyra Other [facility] 04-04-2023 10:40-0400 Diastolic blood pressure 66 mm[Hg] Dutch Pereyra Other [facility] 04-04-2023 10:40-0400 Systolic blood pressure 104 mm[Hg] Dutch Pereyra Other [facility] 03-12-2023 13:15-0400 Body height 157.48 cm Piter Nicko Other [facility] 03-12-2023 13:15-0400 Body mass index (BMI) [Ratio] 24.32 kg/m2 Piter Maharaj Other [facility] 03-12-2023 13:15-0400 Body weight 60.33 kg Piter Maharaj Other [facility] 03-12-2023 13:15-0400 Diastolic blood pressure 80 mm[Hg] Piter Maharaj Other [facility] 03-12-2023 13:15-0400 Systolic blood pressure 119 mm[Hg] Piter Maharaj Other [facility] 09-11-2022 14:15-0500 Body height 157.48 cm Piter Maharaj Other [facility] Other 09-11-2022 14:15-0500 Body mass index (BMI) [Ratio] 28.16 kg/m2 Piter Maharaj Other [facility] 09-11-2022 14:15-0500 Body weight 69.85 kg Piter Maharaj Other [facility] Other 09-11-2022 14:15-0500 Diastolic blood pressure 71 mm[Hg] Piter Maharaj Other [facility] 09-11-2022 14:15-0500 Systolic blood pressure 100 mm[Hg] Piter Maharaj Other [facility] Other 07-25-2022 11:45-0500 Body height 157.48 cm Piter Maharaj Other [facility] Other 07-25-2022 11:45-0500 Body mass index (BMI) [Ratio] 27.43 kg/m2 Piter Maharaj Other [facility] Other 07-25-2022 11:45-0500 Body weight 68.04 kg Piter Maharaj Other [facility] Other 07-25-2022 11:45-0500 Diastolic blood pressure 94 mm[Hg] Piter Nicko Other [facility] 07-25-2022 11:45-0500 Systolic blood pressure 132 mm[Hg] Piter Nicko Other [facility] 06-25-2022 15:25-0500 Diastolic blood pressure 83 mm[Hg] II Stoney Giles Work Phone: [facility] 06-25-2022 15:25-0500 Heart rate 60 /min II Stoney Giles Work Phone: [facility] 06-25-2022 15:25-0500 Systolic blood pressure 137 mm[Hg] II Stoney Giles Work Phone: [facility] 05-29-2022 14:06-0400 Body temperature 97.7 [degF] II Stoney Giles Work Phone: [facility] 05-29-2022 14:06-0400 Respiratory rate 18 /min II Stoney Giles Work Phone: [facility] 05-29-2022 14:06-0400 SaO2% (BldA) [Mass fraction] 95 % II Stoney Giles Work Phone: [facility] 05-23-2022 11:45-0400 Body height 157.48 cm Piter Maharaj Other [facility] Other 05-23-2022 11:45-0400 Body mass index (BMI) [Ratio] 28.35 kg/m2 Piter Maharaj Other [facility] Other 05-23-2022 11:45-0400 Body weight 70.31 kg Piter Maharaj Other [facility] Other 04-25-2022 12:00-0400 Body height 157.48 cm Piter Maharaj Other [facility] Other 04-25-2022 12:00-0400 Body mass index (BMI) [Ratio] 28.16 kg/m2 Piter Maharaj Other [facility] Other 04-25-2022 12:00-0400 Body weight 69.85 kg Piter Maharaj Other [facility] Other 10-30-2021 14:48-0400 Body height 157.48 cm II Stoney Giles Work Phone: [facility] 10-30-2021 14:48-0400 Body mass index (BMI) [Ratio] 29.8 kg/m2 II Stoney Giles Work Phone: [facility] 10-30-2021 14:48-0400 Body weight 73.93 kg II Stoney Giles Work Phone: [facility] 07-24-2021 11:45-0500 Body height 157.48 cm Piter Maharaj Other [facility] [employer] Other 07-24-2021 11:45-0500 Body mass index (BMI) [Ratio] 29.26 kg/m2 Piter Maharaj Other [facility] Other 07-24-2021 11:45-0500 Body weight 72.58 kg Piter Maharaj Other [facility] Other Encounters Encounter Date Encounter Type Care Provider Facility Start: 01-24-2024 End: 01-24-2024 ambulatory [facility] Work Phone: Start: 01-24-2024 End: 01-24-2024 Patient encounter procedure [facility] Gastroenterology Work Phone: Start: 01-03-2024 End: 01-03-2024 ambulatory ROBIN NEWSOME Not Available Start: 01-01-2024 End: 01-01-2024 ambulatory ROBIN NEWSOME Not Available Start: 12-31-2023 End: 12-31-2023 ambulatory PADMINI Duncan BINDU Not Available Start: 12-27-2023 End: 12-27-2023 ambulatory GRACIE CLEMENT Not Available Start: 12-20-2023 End: 12-20-2023 ambulatory CHELLY BARBER Not Available Start: 12-16-2023 End: 12-17-2023 ambulatory CHELLY BARBER Not Available Start: 12-11-2023 End: 12-11-2023 ambulatory STONEY GILES Not Available Start: 12-03-2023 End: 12-03-2023 ambulatory PADMINI RUANO Not Available Start: 11-12-2023 End: 11-12-2023 ambulatory PADMINI RUANO Not Available Start: 11-04-2023 End: 11-04-2023 ambulatory FADUMO PEREZ Not Available Start: 10-14-2023 End: 10-15-2023 ambulatory NOAH B APLING Not Available Start: 10-03-2023 End: 10-03-2023 ambulatory JAVED POONAM Not Available Start: 09-30-2023 End: 09-30-2023 ambulatory NOAH B APLING Not Available Start: 09-17-2023 End: 09-17-2023 ambulatory Piter Maharaj Other [facility] Other Start: 09-17-2023 Office outpatient visit 15 minutes Piter Maharaj [facility] Gastroenterology Start: 09-16-2023 End: 09-16-2023 ambulatory NOAH B APLING Not Available Start: 09-11-2023 End: 09-12-2023 ambulatory NOAH B APLING Not Available Start: 09-11-2023 End: 09-11-2023 ambulatory STONEY B GILES Not Available Start: 08-16-2023 End: 08-16-2023 ambulatory JOHN SHUKLA Not Available Start: 07-18-2023 End: 07-18-2023 ambulatory JAVED POONAM Not Available Start: 04-04-2023 End: 04-04-2023 ambulatory Dutch Pereyra Other [facility] [email or web address] Other Start: 04-04-2023 Office outpatient new 30 minutes Dutch Pereyra [facility] Start: 04-03-2023 End: 04-03-2023 ambulatory Dutch Pereyra Facility:[facility] Start: 04-03-2023 End: 04-03-2023 Patient encounter procedure II Stoney Giles Work Phone: [facility] Work Phone: Start: 03-12-2023 End: 03-12-2023 ambulatory Piter Maharaj Other [facility] [email or web address] Other Start: 03-12-2023 Office outpatient visit 15 minutes Piter Maharaj [facility] G[facility] Start: 01-01-[address] STONEY GILES Facilit y:H1 Start: 12-18-2022 End: 12-19-2022 ambulatory NARENDRANATH LAKSHMIPATHY . Facility:H1 Start: 12-11-2022 End: 12-11-2022 ambulatory ISABELLA VAUGHN Facility:H1 Start: 12-04-2022 End: 12-04-2022 ambulatory STONEY ASKEW Facility:H1 Start: 11-07-2022 End: 11-08-2022 ambulatory Gilbert Chauhan Facility[place] [place] Start: 10-26-2022 End: 10-26-2022 ambulatory Gilbert Chauhan Facility:[facility] Start: 10-26-2022 End: 10-26-2022 ambulatory LUZ Giles Work Phone: [facility] Work Phone: Start: 10-26-2022 End: 10-26-2022 Patient encounter procedure II Stoney Giles Work Phone: [facility] Work Phone: Start: 10-23-2022 End: 10-24-2022 ambulatory NARENDRANATH LAKSHMIPATHY . Facility:H1 Start: 10-09-2022 End: 10-09-[address] ALEENA ANAND . Facility:[facility]1 Start: 09-21-2022 End: 09-21-[address] DEANN THOMASON Facility:H1 Start: 2022 End: 09-14-2022 ambulatory YESSI ARBOLEDA . Facility:H1 Start: 09-11-2022 End: 09-11-2022 ambulatory Piter Maharaj Other [facility] Other Start: 09-11-2022 Office outpatient visit 15 minutes Piter Maharaj [facility] Start: 08-23-2022 End: 08-23-2022 ambulatory Marla Winslow Facility:[facility] Start: 08-23-2022 End: 08-23-2022 ambulatory II Stoney Giles Work Phone: [facility] Work Phone: Start: 08-23-2022 End: 08-23-2022 Patient encounter procedure II Stoney Giles Work Phone: [facility] Work Phone: Start: 08-21-2022 End: 08-21-[address] ALEENA ANAND . Facility:H1 Start: 08-20-2022 End: 08-20-2022 ambulatory Piter Maharaj Other [facility] Other Start: 08-20-2022 Telephone encounter Piter moctezuma [facility] Start: 08-08-2022 End: 08-08-2022 ambulatory Piter Maharaj Other [facility] Other Start: 08-08-2022 Telephone encounter Piter moctezuma [facility] Start: 07-31-2022 End: 08-01-[address] ALEENA ANAND . Facility:H1 Start: 07-30-2022 End: 07-30-2022 ambulatory Piter Maharaj Other [facility] Other Start: 07-30-2022 Telephone encounter Piter moctezuma [facility] Start: 07-25-2022 End: 07-25-2022 ambulatory Piter Maharaj Other [facility] Other Start: 07-25-2022 Patient encounter procedure Piter Maharaj [facility] Start: 07-20-2022 End: 07-21-[address] Jamel MAHARAJ Facility: Start: 07-18-2022 End: 07-18-2022 ambulatory Piter Maharaj Other [facility] Other Start: 07-18-2022 Telephone encounter Piter moctezuma [facility] Start: 07-17-2022 End: 07-17-2022 ambulatory RAE HIRSCH . [facility] [employer] Other Start: 07-17-2022 Telephone encounter Piter moctezuma [facility] Start: 07-13-2022 End: 07-14-[address] STONEY GILES [facility] [employer] Other Start: 07-13-2022 Telephone encounter Piter moctezuma [facility] Start: 07-03-2022 End: 07-03-2022 ambulatory Piter Maharaj Other [facility] Other Start: 07-03-2022 Telephone encounter Piter moctezuma [facility] Start: 06-25-2022 End: 06-25-2022 ambulatory Stoney Giles Facility:[facility] Start: 06-25-2022 Registered Recurring II Stoney Giles Work Phone: [facility] Work Phone: Start: 05-23-2022 End: 05-23-2022 ambulatory Piter Maharaj Other [facility] [employer] Other Start: 05-23-2022 Office outpatient visit 15 minutes Piter Maharaj [facility] Start: 04-27-2022 End: 04-28-[address] Jamel MAHARAJ Facility:H1 Start: 04-25-2022 End: 04-25-2022 ambulatory Piter Maharaj Other [facility] Other Start: 04-25-2022 Office outpatient visit 25 minutes Piter Maharaj [facility] Start: 04-25-2022 Telephone encounter Piter moctezuma [facility] Start: 04-05-2022 End: 04-06-[address] STONEY GILES Facility:[facility]1 Start: 02-08-2022 End: 02-09-[address] STONEY GILES Facility:[facility]1 Start: 01-15-2022 End: 01-15-2022 ambulatory Piter Maharaj Other [facility] Other Start: 01-15-2022 Telephone encounter Piter moctezuma [facility] Start: 07-24-2021 End: 07-24-2021 ambulatory Piter Maharaj Other [facility] Other Start: 07-24-2021 Office outpatient visit 15 minutes Piter Maharaj [facility] Start: 06-29-2021 End: 06-29-2021 ambulatory Piter Maharaj Other [facility] Other Start: 06-29-2021 Telephone encounter Piter moctezuma [facility] Procedures Date Procedure Procedure Detail Performing Clinician Start: 04-03-2023 X-ray of cervical spine II Stoney Giles Work Phone: Start: 10-26-2022 Plain chest X-ray II Raúl Giles Work Phone: Start: 08-23-2022 X-ray of left ankle II Stoney Giles Work Phone: Plan of Treatment Date Care Activity Detail Author Comprehensive metabo lic 2000 panel - Serum or Plasma [facility] enter CT Abdomen and Pelvis [facility] Immunizations Immunization Date Immunization Notes Care Provider Fa cility 12-21-2014 tetanus toxoid, redu nora diphtheria toxoid, and acellular pertussis vaccine, adsorbed Piter Nicko Other [facility] Payers Date Payer Category Payer Medicaid [id number] 2019 Self-pay [id number] 2019 Unknown [id number] 1990 Unknown [id number] 2.16.840.1.316056.3.579.2.727 1990 Unknown [id number] 2.16.840.1.560540.3.579.2.593 1990 Unknown [id number] 2.16.840.1.302238.3.579.2.593 1990 Unknown [id number] 2.16.840.1.178361.3.579.2.593 1990 Unknown [id number] 2.16.840.1.537210.3.579.2.593 1990 Unknown [id number] 2.16.840.1.845371.3.579.2.593 1990 Unknown [id number] 2.16.840.1.951160.3.579.2.593 1990 Unknown [id number] 2.16.840.1.332664.3.579.2.593 1990 Unknown [id number] 2.16.840.1.134047.3.579.2.593 1990 Unknown [id number] 2.16.840.1.482378.3.579.2.593 1990 Unknown [id number] 2.16.840.1.553938.3.579.2.593 1990 Unknown [id number] 2.16.840.1.706567.3.579.2.593 1990 Unknown [id number] 2.16.840.1.333159.3.579.2.593 1990 Unknown [id number] 2.16.840.1.455553.3.579.2.593 1990 Unknown [id number] 2.16.840.1.797351.3.579.2.593 1990 Unknown [id number] 2.16.840.1.336733.3.579.2.593 1990 Unknown [id number] 2.16.840.1.815418.3.579.2.593 1990 Unknown [id number] 2.16.840.1.974784.3.579.2.1259 1990 Unknown [id number] 2.16.840.1.346512.3.579.2.1259 1990 Unknown [id number] 2.16.840.1.162225.3.579.2.1259 1990 Unknown [id number] 2.16.840.1.236099.3.579.2.9 1990 Unknown [id number] 2.16.840.1.517224.3.579.2.1259 1990 Unknown [id number] 2.16.840.1.835412.3.579.2.1259 1990 Unknown [id number] 2.16.840.1.373448.3.579.2.1259 1990 Unknown [id number] 2.16.840.1.996744.3.579.2.1259 1990 Unknown [id number] 2.16.840.1.194595.3.579.2.1259 1990 Unknown [id number] 2.16.840.1.647744.3.579.2.1259 1990 Unknown [id number] 2.16.840.1.968104.3.579.2.1259 1990 Unknown [id number] 2.16.840.1.815231.3.579.2.1259 1990 Unknown [id number] 2.16.840.1.015242.3.579.2.1259 1990 Unknown [id number] 2.16.840.1.951899.3.579.2.9 1990 Unknown [id number] 2.16.840.1.306699.3.579.2.1259 1990 Unknown [id number] 2.16.840.1.731518.3.579.2.9 1990 Unknown [id number] 2.16.840.1.256105.3.579.2.9 1990 Unknown [id number] 2.16.840.1.772702.3.579.2.9 1990 Unknown [id number] 2.16.840.1.551323.3.579.2.1259 1990 Unknown [id number] 2.16.840.1.090012.3.579.2.1259 1959 Unknown [id number] 2.16.840.1.636244.19 Private Health Insurance [facility] [id number] Unknown [id number] 2.16.840.1.099245.3.579.2.531 Social History Date Type Detail Facility Sex Assigned At [facility] Other Start: 12-23-2018 End: 12-23-2018 Tobacco smoking status ALIS Smoker (finding) [facility] Start: 1990 Sex Assigned At Female F [facility] Start: 10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 Also, of note, she uses Seward infrequently. She takes half a pill at a time, when she does use it, and she uses less than 14 pills in a month. Her OARRS report was reconciled. She does report the medicine does improve her quality of life, level of functioning and sleep pattern.[facility] [id number] Note CONSULTATION CONSULTATION DATE: 2022 This is [...] self-massage which she finds beneficial. Medications include Seward 5/325, half pill p.r.n. as needed because [...] be followed in the office there after.[facility] [id number] Evaluation note* Encounter Date Diagnosis Assessment Notes Treatment Notes Treatment Clinical Notes Aug, Crohns disease (ICD-10 - K50.90) Continue Stelara without change Labs and follow up in 6 months [facility] Other 12-20-2022 NoteCONSULTATION CONSULTATION DATE: 07/31/2022 CHIEF [...] currently takes Aleve two tablets a day, Seward 5/325 on a p.r.n. basis. She tries [...] C4-5 and C6-7. CC: Stoney Giles M.D.[facility] [id number] Evaluation note* Encounter Date Diagnosis Assessment Notes Treatment Notes Treatment Clinical Notes Jul, Crohns disease (ICD-10 - K50.90) CONTINUE STELARA DIRECTED DECREASE PREDNISONE TO 40 MG DAILY FOR 7 DAYS, THEN DECREASE BY 10 MG WEEKLY RTO 6 WEEKS [facility] Other 12-07-2022 Evaluation note* Encounter Date Diagnosis Assessment Notes Treatment Notes Treatment Clinical Notes Jul, Crohns disease (ICD-10 - K50.90) [facility] Other 10-12-2022 Evaluation note* Encounter Date Diagnosis Assessment Notes Treatment Notes Treatment Clinical Notes May, Crohns disease (ICD-10 - K50.90) May, Diarrhea (ICD-10 - R19.7) May, Abdominal cramping (ICD-10 - R10.9) [facility] Other 09-14-2022 Evaluation note* Encounter Date Diagnosis Assessment Notes Treatment Notes Treatment Clinical Notes Apr, Crohns disease (ICD-10 - K50.90) PT HAS TRIED AND FAILED HUMIRA AND ENTYVIO START PPW FOR SKYRIZI RTO 4 WEEKS Apr, Diarrhea (ICD-10 - R19.7) Apr, Abdominal cramping (ICD-10 - R10.9) [facility] Other 06-30-2022 NotePROCEDURE: XR FOOT RT 2V COMPARISON: None. HISTORY: Pain in right foot FINDINGS: BONES:No acute fracture or dislocation. Mild enthesopathic spurring of the calcaneus at the Achilles insertion SOFT TISSUES:Negative. No visible soft tissue swelling. EFFUSION:None visible. OTHER: Negative. IMPRESSION: No acute abnormality Electronically authenticated by: ISABEL CHAVEZ Date: 2022-02-08 17:18[facility]12-13-2021 Evaluation note* Encounter Date Diagnosis Assessment [...] 6 WEEKS, LABS ORDERED AT THIS TIME. [facility] Other Evaluation noteNo InformationNort [employer] Other Evaluation noteNo assessment information available [facility] Work Phone: Evaluation note* Diagnosis Onset Date Resolution Status Crohn disease acute [facility] Work Phone: Hispdqs general Narrative - Reported* Type Description Date Medical History shegalla Surgical History tonsillectomy Hospitalization History childbirth [facility] Other [facility] general Narrative - Reported* Type Description Date Medical History shegalla Surgical History tonsillectomy Surgical History RFA Hospitalization History childbirth [facility] Other Hisfsjh general Narrative - Reported* Type Description Date Medical History shegalla Medical History anxiety Medical History Crohns disease Surgical History tonsillectomy Surgical History RFA Hospitalization History childbirth Hospitalization History see above surg. hx. [facility] Other Chief Complaint and Reason for Visit Chief Complaint k50.90,k50.00.. T14.90XA Chief Complaint T14.90XA Z01.818 Chief Complaint Z01.818 Chief Complaint m54.2 Chief Complaint Crohn's Reason for Visit Crohn disease Family History Relationship Condition Age at Onset Recorded Date/T anand Not Specified Fibromyalgia Unknown family member Malignant neoplasm of urinary bladder Un known family member Malignant neoplasm of colon Unknown Advance Directives Advance Directive Response Recorded Date/ Time Advance [...] LRM. PT WAS TO HAVE LABS DRAWN.PREDNISONE [id number] STELARA INJECTIONSTELARA SHOTPT HERE FOR 3 MONTH [...] Active Dutch Pereyra MD Attending Provider Active Team Status: Inactive Member Role Status Dates Stoney Giles II MD Primary Care Provider Active Start: January 24, 2024 End: January 24, 2024 Shilpi Sahni DO Attending Provider Active St art: January 24, 2024 End: January 24, 2024 Goals (unrecognized section and content) Goals may be documented in a n alternate section INFORMATION SOURCE (unrecogn ized section and content) DATE CREATED AUTHOR 11/18/2022 [facility] DATE CREATED AUTHOR AUTHOR'S ORGANIZ ATION 12/23/2022 [facility] DATE CREATED AUTHOR AUTHOR'S ORGANIZ ATION 04/04/2023 [facility] DATE CREATED AUTHOR AUTHOR'S TERRANCE ATION 01/05/2024 [facility] EPIC FOR RECORDS PERTAINING TO [...] BE BASED ON THE PRIMARY CLINICAL RECORDS. [employer] provides no warranty or guarantee of the accuracy or completeness of information in this document.
[2024-01-25 11:05] LABS: Basophils Absolute Auto 0.1 10^3/uL (0.0-0.1); Basophils Percent Auto 1.2 % (0.2-2.0); Eosinophils Absolute Auto 0.2 10^3/uL (0.0-0.7); Eosinophils Percent Auto 2.2 % (0.9-7.0); Hematocrit 37.2 % (36.0-48.0); Hemoglobin 12.9 g/dL (12.0-16.0); Immature Granulocytes Abs Auto 0.02 10^3/uL (0.00-0.03); Immature Granulocytes Pct Auto 0.3 % (0.0-0.5); Lymphocytes Absolute Auto 1.9 10^3/uL (1.2-3.8); Lymphocytes Percent Auto 28.4 % (20.5-60.0); Mean Corpuscular HGB Conc 34.7 g/dL (29.9-35.2); Mean Corpuscular Hemoglobin 30.1 pg (26.7-34.0); Mean Corpuscular Volume 86.7 fL (81.0-99.0); Mean Platelet Volume 10.8 fL (9.5-13.5); Monocytes Absolute Auto 0.5 10^3/uL (0.3-0.8); Monocytes Percent Auto 7.9 % (1.7-12.0); Neutrophils Absolute Auto 4.1 10^3/uL (1.4-6.5); Platelet Count 203 10^3/uL (150-450); Red Blood Count 4.29 10^6/uL (4.20-5.40); Red Cell Distribution Width 11.5 % (11.0-15.0); White Blood Count 6.8 10^3/uL (4.0-11.0)
[2024-01-25 11:23] LABS: Alanine Aminotransferase 21 U/L (14-59); Albumin Globulin Ratio 1.4; Albumin Level 3.8 g/dL (3.4-5.0); Alkaline Phosphatase 65 U/L (46-116); Anion Gap 7.8; Aspartate Amino Transferase 12 U/L (15-37); BUN Creatinine Ratio 15.2; Bilirubin Total 0.4 mg/dL (0.2-1.0); C Reactive Protein <0.50 mg/dL (<=0.50); Calcium 8.5 mg/dL (8.5-10.1); Carbon Dioxide 28.2 mmol/L (21.0-32.0); Chloride 107 mmol/L (98-107); Estimated GFR (African America >60 (>=60); Estimated GFR (Non-African Ame >60 (>=60); Globulin 2.8 g/dL; Glucose 87 mg/dL (74-106); Sodium 139 mmol/L (136-145); Total Protein 6.6 g/dL (6.4-8.2)
== END 2024-01-25 10:39 | disposition home or self-care (01) ==
LOC: LAB 10:39
PROVIDERS: PCP Internal Medicine; Visit Provider Internal Medicine Gastroenterology
DX: K50.90 Crohn's disease, unspecified, without complications (principal)
CPT/HCPCS: 36415; 80053; 85025; 86140

== ENCOUNTER 2024-01-28 15:00 | Outpatient (OUT) | payer MEDICAID, SELFPAY ==
--- NOTE | 2024-01-28 | CONS_ITS ---
CONSULTATION DATE: 01/28/2024 TO: Stoney Giles M.D. HISTORY: Patient returns today complaining of 3-4/10 pain, which she describes in the middle of her neck and describes it as a deep aching pain with a throbbing component, increased with activities such as performing lifting maneuvers, pushing/pulling maneuvers. She has some relief in the semi-recumbent position. Denies any change in bowel and bladder habits or new sensorimotor changes in the upper extremities. CURRENT MEDICATION: Includes Aleve two pills daily p.r.n., Xanax 0.5 mg, she takes 1-2 a week and Skelaxin 400 mg two pills at h.s., but she is not sure if this is offering any relief. Her BERNIE on today?s visit was 18%. EXAM: Notable for patient have non-focal sensorimotor exam of her upper extremities. She had no appreciable dysesthesia along any dermatomal level in the cervical area. Patient did have markedly improved myofascial spasm of the cervical paravertebral muscles, especially on the right side. She appeared to have more ?fullness? of the cervical musculature on the left side. Range of motion was normal with minimal pain. She did have point tenderness in multiple muscle groups, which includes her trapezius, her latissimus dorsi, her deltoids, triceps and biceps in her trunk and upper extremities. IMPRESSION: Patient appears to have chronic pain secondary to possible fibromyalgia, myofascial dysfunction. She has improvement in her cervical myofascial spasm, mainly her trapezius, as well as her splenius capitis. RECOMMENDATIONS: I have recommended she consider weaning off the Skelaxin to see if it is effective or not. Pending her response, we may or may not start her on Zonegran for some of her symptoms that may be consistent with ?fibromyalgia?. She is to follow up with us via telephone in 1-2 weeks? time. Will see the patient back in the office in approximately 4-6 weeks? time. As part of providing excellent, safe, comprehensive care, the following was completed at our patient's visit: 1. A medication reconciliation and review to ensure accurate knowledge of current/active medications, including asking our patients to inform us about any vzag-orq-ggqwzst medications or herbal remedies/nutritional supplements/alternative remedies. 2. A review to specifically ensure our patients have had annual screening for: elevated body mass index (BMI, see intake chart for exact total), tobacco use, screening for depression, and screening for unhealthy alcohol use. When screening is concerning, patients are provided with education and the specific recommendation to discuss the concerning health issue and treatment options with their primary care provider. RIKA
== END 2024-01-28 15:01 | disposition home or self-care (01) ==
LOC: PM 15:01
PROVIDERS: PCP Internal Medicine; Visit Provider Anesthesiology Pain Medicine
DX: M79.7 Fibromyalgia (principal); G89.4 Chronic pain syndrome
CPT/HCPCS: G0463

== ENCOUNTER 2024-02-12 10:36 | Outpatient (REF) | payer MEDICAID, SELFPAY ==
[2024-02-16 03:06] LABS: Calprotectin, Fecal 139 ug/g (0-120)
== END 2024-02-12 10:37 | disposition home or self-care (01) ==
LOC: LAB 10:36
PROVIDERS: PCP Internal Medicine; Visit Provider Internal Medicine Gastroenterology
DX: K50.90 Crohn's disease, unspecified, without complications (principal)
CPT/HCPCS: 83993

== ENCOUNTER 2024-03-03 13:27 | Outpatient (OUT) | payer MEDICAID, SELFPAY ==
--- NOTE | 2024-03-03 13:34 | CT_ITS ---
[address] [address] Patient Name: PAT LICONA MRN: [id number] date: 1990 Sex: F Assigned Patient Location: CT Current Patient Location: Accession/Order Number: [id number] Exam Date: 03/03/2024 15:45 Report Date: 03/04/2024 06:59 At the request of: INES LEAL Procedure: CT abdomen pelvis w con EXAMINATION: CT abdomen pelvis w con HISTORY: Crohn's Disease K50.90 COMPARISON: No relevant comparison available. TECHNIQUE: Axial, Coronal, and Sagittal images were obtained without and/or with IV contrast as indicated by examination type. Dose reduction techniques were achieved by using automated exposure control and/or adjustment of mA and/or kV according to patient size and/or use of iterative reconstruction technique. FINDINGS: LUNG BASES: No visible pulmonary or pleural disease. LIVER: No enlargement, atrophy, suspicious density, or significant focal lesion. BILIARY: No dilatation or calcification. PANCREAS: No lesion, fluid collection, or abnormal duct dilatation. SPLEEN: No enlargement or focal lesion. ADRENALS: No mass or enlargement. KIDNEYS: No mass, obstruction, or calcification. BOWEL/MESENTERY: Mild circumferential wall thickening of terminal ileum and an approximately 10 cm segments of distal ileum, but separate from the terminal ileum. Normal appendix. AORTA/VASCULAR: No aneurysm or dissection. RETROPERITONEUM: No mass or adenopathy. LYMPH NODES: No adenopathy. URINARY BLADDER: No visible focal wall thickening, lesion, or calculus. PELVIC ORGANS: No visible mass. Pelvic organs appropriate for patient age. ABDOMINAL WALL: No mass or hernia. BONES: No bony lesion or fracture. OTHER: Negative. CT/CT abdomen pelvis w con IMPRESSION: 1. There are 2 separate segments of mild circumference wall thickening of small bowel involving distal ileum and the terminal ileum suggestive of Crohn's disease. No bowel obstruction. Electronically authenticated by: DEANN THOMASON Date: 03/04/2024 06:59
== END 2024-03-03 13:28 | disposition home or self-care (01) ==
LOC: CT 13:27
PROVIDERS: PCP Internal Medicine; Visit Provider Internal Medicine Gastroenterology
DX: K50.90 Crohn's disease, unspecified, without complications (principal)
CPT/HCPCS: 74177; Q9967

== ENCOUNTER 2024-04-09 08:42 | Outpatient (OUT) | payer MEDICAID, SELFPAY ==
--- OUTSIDE RECORDS SUMMARY | 2024-04-09 08:58 | XMS_ITS | CCD ---
Author Organization [facility] CliniSyar Care Team Providers Care Jig Hand Name Role Phone Piter Maharaj Unavailable LUZ Giles Primary Care Provider [phone] MD Piter Maharaj Attending Provider AIDAN Winslow Attending Provider LUZ Giles Primary Care Provider [phone] AIDAN Winslow Attending Provider [phone] JOSE Chauhan Attending Provider Gilbert Chauhan Admitting Unavailable Gilbert Chauhan Attending Unavailable LUZ Giles Primary Care Provider [phone] [address] STONEY GILES Primary Care Unavailable LAKSHMIPATHY ., CINTIA Attending Ileana vailable LAKSHMIPATHY ., NARENDRANATH Admitting Ileana vailable GRECHNY ., RAE SONG Consulting Unavailmandeep RIVERA ., DR WESLEY Attending Unavailable MIGUEL ., DR WESLEY Admitting Unavailable DR STONEY GILES Primary Care Unavailable VANNA GARLAND Consulting Unavailable DR DEANN THOMASON Consulting Unavailable DIAB ., GABRIELA Attending Unavailable DIAB ., GABRIELA Admitting Unavailable ELENA, DR MURILLO Primary Care Unavailable DIAB ., GABRIELA Consulting Unavailable KIKA ., DR ALEENA Bustamante Consulting Unavailable DR STONEY GILES Primary Care Unavailable KIKA ., DR ALEENA Bustamante Attending Unavailable KIKA ., DR ALEENA Bustamante Admitting Unavailable LAKSHMIPATHY ., CINTIA Consulting Ileana vailable DR STONEY GILES Primary Care Unavailable LAKSHMIPATHY ., NARENDHAYESATH Attending Ileana vailable HALKER ., FRANCOIS Admitting Unavailable ARBOLEDA .YESSI Consulting Unavailable DR STONEY GILES Primary [...] vailable LAKSHMIPATHY ., CINTIA Admitting Ileana vailable LAKSHMIPATHY ., CINTIA Consulting Ileana vailable ANAND ., DR ALEENA Bustamante Consulting Unavailable ELENA, DR MURILLO Primary Care Unavailable ANAND ., DR ALEENA Bustamante Attending Unavailable ANAND ., DR ALEENA Bustamante Admitting Unavailable Stoney Giles Primary Care Unavailable Nicko, Piter Alaniz Admitting Unavailabl e Nicko, Piter Alaniz Attending Unavailabl e Goldy, Marla Mccullough Admitting Unavailable Goldy, Marla Mccullough Attending Unavailable Stoney Giles Primary Care Unavailable [...] Unavailable APLING, NOAH Escalera Attending Unavailable POONAMJAVED Attending Unavailable APLING, NOAH Escalera Referring Unavailable MURCEKFADUMO Attending Unavailable STONEY GILES Referring Unavailable BINDU, PADMINI Duncan Attending Unavailable BINDU, PADMINI Duncan Attending Unavailable STONEY GILES Attending Unavailable SUNIL, CHELLY Attending Unavailable BINDU, PADMINI Duncan Referring Unavailable POONAM, JAVED Attending Unavailable BARBER, CHELLY Attending Unavailable BINDU, PADMINI Duncan Referring [...] Allergy to substance 6 Unknown Reaction, Unknown [facility] (15 sources) Latex; Translations: [Latex] Allergy to substance 9 Unknown Reaction, Unknown [facility] (6 sources) BANDAIDS; Translations: [BANDAIDS] Allergy to substance 9 Unknown Reaction [facility] Medications Current Medications Medication Drug Class(es) Dates [...] / neomycin 3.5 mg/ml / polymyxin b 50764 unt/ml otic suspension (1 source) Aminoglycoside Antibacterial, [...] 09-24-2022 Episodic Other aftercare (1 source) Other termination clerk (current) drug therapy; Translations: [OTH LONGTERM CURRENT DRUG THERAPY] Onset: 09-24-2022 Episodic Other [...] Facility MR SHOULDER RIGHT WO IV CONT RUST 10-14-2023 MR SHOULDER RIGHT WO IV CONTRAST [...] 04-03-2023 ALT [Catalytic activity/Vol] 8 U/L 7-52 [facility] Albumin [Mass/volume] in Ser um or Plasma by Bromocresol green (BCG) dye binding methoOrdered By: Piter Maharaj on 04-03-2023 Albumin BCG dye [Mass/Vol] 4.6 g/dL 3.5-5.7 [facility] Alkaline phosphatase [Enzyma tic activity/volume] in Serum or PlasmaOrdered By: Piter Maharaj on 04-03-2023 ALP [Catalytic activity/Vol] 50 U/L 34-104 [facility] Aspartate aminotransferase [ Enzymatic activity/volume] in Serum or PlasmaOrdered By: Piter Maharaj 04-03-2023 AST [Catalytic activity/Vol] 10 U/L 13-39 [facility] Basophils Auto (Bld) [#/Vol] Ordered By: Piter Maharaj on 04-03-2023 Basophils (Bld) [#/Vol] 0.1 10*3/uL 0.0-0.2 [facility] Basophils/100 WBC Auto (Bld) Ordered By: Piter Maharaj on 04-03-2023 Basophils/100 WBC (Bld) 0.9 % . F [facility] Bilirubin.total [Mass/volume ] in Serum or PlasmaOrdered By: Piter Maharaj on 04-03-2023 Bilirubin [Mass/Vol] 0.6 mg/dL 0.3-1.0 [facility] C reactive protein [Mass/vol ume] in Serum or PlasmaOrdered By: Piter Maharaj on 04-03-2023 CRP [Mass/Vol] < 0.5 mg/dL 0.0-0.5 [facility] C-Reactive Proteinon 023 CRP [Mass/Vol] mg/L Normal 0.0-0.5 [facility] Comment on above: Order Comment: Reaso n for Exam Crohns disease Result Comment: PERF ORMED BY: [place] [address] PATHOLOGIST [employer]PER[employer]OR JOANA SALCIDO M.D. Performed By: #### C RP, CMP #### [facility] [address] Calcium [Mass/volume] in Ser um or PlasmaOrdered By: Piter Maharaj on 04-03-2023 Calcium [Mass/Vol] 8.8 mg/dL 8.6-10.3 [facility] Carbon dioxide, total [Moles /volume] in Serum or PlasmaOrdered By: Piter Maharaj on 04-03-2023 CO2 [Moles/Vol] 25.0 mmol/L 21.0-31.0 [facility] Chloride [Moles/volume] in S darwin or PlasmaOrdered By: Piter Maharaj on 04-03-2023 Chloride [Moles/Vol] 110 mmol/L 98-107 [facility] Complete Blood Count Auto Di ffon 04-03-2023 Basophils (Bld) [#/Vol] 0.1 10*3/uL Normal 0.0-0.2 [facility] Comment on above: Order Comment: Reaso n for Exam Crohns disease Performed By: #### E SR, CBC #### [facility] [address] [place] [address] [place] Basophils/100 WBC (Bld) 0.9 % Normal . F [facility] Comment on above: Order Comment: Reaso n for Exam Crohns disease Performed By: #### E SR, CBC #### [facility] [address] [place] [address] [place] Eosinophils (Bld) [#/Vol] 0.1 10*3/uL Normal 0.0-0.45 [facility] Comment on above: Order Comment: Reaso n for Exam Crohns disease Performed By: #### E SR, CBC #### [facility] [address] [place] [address] [place] Eosinophils/100 WBC (Bld) 1.3 % Normal . [facility] Comment on above: Order Comment: Reaso n for Exam Crohns disease Performed By: #### E SR, CBC #### [facility] [address] Erythrocyte distribution width (RBC) [Ratio] 12.1 % Normal 11.9-15.3 [facility] Comment on above: Order Comment: Reaso n for Exam Crohns disease Performed By: #### E SR, CBC #### [address] Hematocrit (Bld) [Volume fraction] 39.4 % Normal 34.0-46.4 [facility] Comment on above: Order Comment: Reaso n for Exam Crohns disease Performed By: #### E SR, CBC #### [facility] [address] [place] [address] Hemoglobin (Bld) [Mass/Vol] 13.5 g/dL Normal 11.8-15.4 [facility] Comment on above: Order Comment: Reaso n for Exam Crohns disease Performed By: #### E SR, CBC #### [address] Lymphocytes (Bld) [#/Vol] 1.9 10*3/uL Normal 1.00-4.8 [facility] Comment on above: Order Comment: Reaso n for Exam Crohns disease Performed By: #### E SR, CBC #### [place] [address] [place] Lymphocytes/100 WBC (Bld) 31.9 % Normal . [facility] Comment on above: Order Comment: Reaso n for Exam Crohns disease Performed By: #### E SR, CBC #### [facility] [address] [place] [address] MCH (RBC) [Entitic mass] 30.4 pg Normal 24.7-34.3 [facility] Comment on above: Order Comment: Reaso n for Exam Crohns disease Performed By: #### E SR, CBC #### [facility] [address] [place] [address] [place] MCV (RBC) [Entitic vol] 88.7 fL Normal 80-100 [facility] Comment on above: Order Comment: Reaso n for Exam Crohns disease Performed By: #### E SR, CBC #### [facility] [address] Mean Corpuscular HGB Conc 34.2 g/dL Normal 32.0-35.0 [facility] Comment on above: Order Comment: Reaso n for Exam Crohns disease Performed By: #### E SR, CBC #### [facility] [address] [place] [address] Monocytes (Bld) [#/Vol] 0.5 10*3/uL Normal 0.0-0.8 [facility] Comment on above: Order Comment: Reaso n for Exam Crohns disease Performed By: #### E SR, CBC #### [facility] [address] [place] [address] Monocytes/100 WBC (Bld) 7.5 % Normal . F [facility] Comment on above: Order Comment: Reaso n for Exam Crohns disease Performed By: #### E SR, CBC #### [facility] [address] [place] [address] Neutrophils (Bld) [#/Vol] 3.5 10*3/uL Normal 1.8-7.7 [facility] Comment on above: Order Comment: Reaso n for Exam Crohns disease Performed By: #### E SR, CBC #### [facility] [address] [place] [address] [place] Neutrophils/100 WBC (Bld) 58.4 % Normal . [facility] Comment on above: Order Comment: Reaso n for Exam Crohns disease Performed By: #### E SR, CBC #### [facility] [address] [place] [address] [place] NRBC% 0.2 /100{WBC} Normal 0-0.5 [facility] Comment on above: Order Comment: Reaso n for Exam Crohns disease Performed By: #### E SR, CBC #### [facility] [address] Platelet mean volume (Bld) [Entitic vol] 9.3 fL Normal 6.3-10.7 [facility] Comment on above: Order Comment: Reaso n for Exam Crohns disease Performed By: #### E SR, CBC #### [address] Platelets (Bld) [#/Vol] 189 10*3/uL Normal 150-450 [facility] Comment on above: Order Comment: Reaso n for Exam Crohns disease Performed By: #### E SR, CBC #### [address] RBC (Bld) [#/Vol] 4.44 10*6/uL Normal 3.60-5.00 [facility] Comment on above: Order Comment: Reaso n for Exam Crohns disease Performed By: #### E SR, CBC #### [address] WBC (Bld) [#/Vol] 6.1 10*3/uL Normal 3.8-11.6 [facility] Comment on above: Order Comment: Reaso n for Exam Crohns disease Performed By: #### E SR, CBC #### [address] Comprehensive Metabolic Pane bob 04-03-2023 Albumin [Mass/Vol] 4.6 g/dL Normal 3.5-5.7 [facility] Comment on above: Order Comment: Reaso n for Exam Crohns disease Performed By: #### C RP, CMP #### [facility] [address] [place] [address] Albumin/Globulin [Mass ratio] 2.3 {ratio} Normal [facility] Comment on above: Order Comment: Reaso n for Exam Crohns disease Performed By: #### C RP, CMP #### [address] ALP [Catalytic activity/Vol] 50 U/L Normal 34-104 [facility] Comment on above: Order Comment: Reaso n for Exam Crohns disease Performed By: #### C RP, CMP #### [facility] [address] ALT [Catalytic activity/Vol] 8 U/L Normal 7-52 [facility] Comment on above: Order Comment: Reaso n for Exam Crohns disease Performed By: #### C RP, CMP #### [facility] [address] Anion gap [Moles/Vol] 8.9 mmol/L Normal 6.0-15.0 [facility] Comment on above: Order Comment: Reaso n for Exam Crohns disease Performed By: #### C RP, CMP #### [facility] [address] AST [Catalytic activity/Vol] 10 U/L Low 13-39 [facility] Comment on above: Order Comment: Reaso n for Exam Crohns disease Performed By: #### C RP, CMP #### [facility] [address] Bilirubin [Mass/Vol] 0.6 mg/dL Normal 0.3-1.0 [facility] Comment on above: Order Comment: Reaso n for Exam Crohns disease Performed By: #### C RP, CMP #### [facility] [address] Calcium [Mass/Vol] 8.8 mg/dL Normal 8.6-10.3 [facility] Comment on above: Order Comment: Reaso n for Exam Crohns disease Performed By: #### C RP, CMP #### [facility] [address] [place] [address] [place] Chloride [Moles/Vol] 110 mmol/L High 98-107 [facility] Comment on above: Order Comment: Reaso n for Exam Crohns disease Performed By: #### C RP, CMP #### [facility] [address] [place] [address] [place] CO2 [Moles/Vol] 25.0 mmol/L Normal 21.0-31.0 [facility] Comment on above: Order Comment: Reaso n for Exam Crohns disease Performed By: #### C RP, CMP #### [facility] [address] Creatinine [Mass/Vol] 0.89 mg/dL Normal 0.60-1.20 [facility] Comment on above: Order Comment: Reaso n for Exam Crohns disease Performed By: #### C RP, CMP #### [facility] [address] [place] [address] [place] GFR/1.73 sq M.predicted MDRD (S/P/Bld) [Vol rate/Area] mL/min/{1.73_m2} Normal [facility] Comment on above: Order Comment: Reaso n for Exam Crohns disease Performed By: #### C RP, CMP #### [facility] [address] Globulin (S) [Mass/Vol] 2.0 g/dL Normal [facility] Comment on above: Order Comment: Reaso n for Exam Crohns disease Performed By: #### C RP, CMP #### [address] Glucose [Mass/Vol] 91 mg/dL Normal 70-100 [facility] Comment on above: Order Comment: Reaso n for Exam Crohns disease Result Comment: [place] Glucose Reference Range is dependent on time and content of last meal. Glucose of more than 200 mg/dL in a nonstressed, ambulatory subject supports the diagnosis of Diabetes Mellitus. ADA recommended reference range Performed By: #### C RP, CMP #### [facility] [address] Potassium [Moles/Vol] 3.9 mmol/L Normal 3.5-5.1 [facility] Comment on above: Order Comment: Reaso n for Exam Crohns disease Performed By: #### C RP, CMP #### [facility] [address] Protein [Mass/Vol] 6.6 g/dL Normal 6.4-8.9 [facility] Comment on above: Order Comment: Reaso n for Exam Crohns disease Performed By: #### C RP, CMP #### [facility] [address] Sodium [Moles/Vol] 140 mmol/L Normal 136-145 [facility] Comment on above: Order Comment: Reaso n for Exam Crohns disease Performed By: #### C RP, CMP #### [facility] [address] Urea nitrogen [Mass/Vol] 12 mg/dL Normal 7-25 [facility] Comment on above: Order Comment: Reaso n for Exam Crohns disease Performed By: #### C RP, CMP #### [address] Creatinine [Mass/volume] in Serum or PlasmaOrdered By: Piter Maharaj on 04-03-2023 Creatinine [Mass/Vol] 0.89 mg/dL 0.60-1.20 [facility] Eosinophils Auto (Bld) [#/Vo l]Ordered By: Piter Maharaj on 04-03-2023 Eosinophils (Bld) [#/Vol] 0.1 10*3/uL 0.0-0.45 [facility] Eosinophils/100 WBC Auto (Bl d)Ordered By: Piter Maharaj on 04-03-2023 Eosinophils/100 WBC (Bld) 1.3 % . [facility] Erythrocyte Sedimentation Ra sri 04-03-2023 ESR (Bld) [Velocity] mm/h Normal 0-19 [facility] Comment on above: Order Comment: Reaso n for Exam Crohns disease Result Comment: PERF ORMED BY: [place] [address] PATHOLOGIST [employer] SUPERVISOR JOANA SALCIDO M.D. Performed By: #### E SR, CBC #### [facility] [address] [place] [address] Erythrocyte distribution wid th Auto (RBC) [Ratio]Ordered By: Piter Maharaj on 04-03-2023 Erythrocyte distribution width (RBC) [Ratio] 12.1 % 11.9-15.3 [facility] Erythrocyte sedimentation ra te by Photometric methodOrdered By: Piter Maharaj on 04-03-2023 ESR Photometric method (Bld) [Velocity] < 1 mm/hr 0-19 [facility] Globulin Calc (S) [Mass/Vol] Ordered By: Piter Maharaj on 04-03-2023 Globulin (S) [Mass/Vol] 2.0 g/dL F [facility] Glucose [Mass/volume] in Ser um or PlasmaOrdered By: Piter Maharaj on 04-03-2023 Glucose [Mass/Vol] 91 mg/dL 70-100 [facility] Comment on above: ADA recommended refe rence rangeRandom Glucose Reference Range is dependent on time and content of last meal. Glucose of more than 200 mg/dL in a nonstressed, ambulatory subject supports the diagnosis of Diabetes Mellitus. Hematocrit Auto (Bld) [Volum e fraction]Ordered By: Piter Maharaj on 04-03-2023 Hematocrit (Bld) [Volume fraction] 39.4 % 34.0-46.4 [facility] Hemoglobin [Mass/volume] in BloodOrdered By: Piter Maharaj on 04-03-2023 Hemoglobin (Bld) [Mass/Vol] 13.5 g/dL 11.8-15.4 [facility] Leukocytes [#/volume] correc ricardo for nucleated erythrocytes in Blood by Automated counOrdered By: Piter Maharaj on 04-03-2023 WBC corrected for nucl RBC Auto (Bld) [#/Vol] 6.1 10*3/uL 3.8-11.6 [facility] Lymphocytes Auto (Bld) [#/Vo l]Ordered By: Piter Maharaj on 04-03-2023 Lymphocytes (Bld) [#/Vol] 1.9 10*3/uL 1.00-4.8 [facility] Lymphocytes/100 WBC Auto (Bl d)Ordered By: Piter Maharaj on 04-03-2023 Lymphocytes/100 WBC (Bld) 31.9 % . [facility] MCH Auto (RBC) [Entitic mass ]Ordered By: Piter Maharaj on 04-03-2023 MCH (RBC) [Entitic mass] 30.4 pg 24.7-34.3 [facility] MCHC Auto (RBC) [Mass/Vol]Or dered By: Piter Maharaj on 04-03-2023 MCHC (RBC) [Mass/Vol] 34.2 g/dL 32.0-35.0 [facility] MCV Auto (RBC) [Entitic vol] Ordered By: Piter Maharaj on 04-03-2023 MCV (RBC) [Entitic vol] 88.7 fL 80-100 [facility] Monocytes Auto (Bld) [#/Vol] Ordered By: Piter Maharaj on 04-03-2023 Monocytes (Bld) [#/Vol] 0.5 10*3/uL 0.0-0.8 [facility] Monocytes/100 WBC Auto (Bld) Ordered By: Piter Maharaj on 04-03-2023 Monocytes/100 WBC (Bld) 7.5 % . F [facility] Neutrophils Auto (Bld) [#/Vo l]Ordered By: Piter Maharaj on 04-03-2023 Neutrophils (Bld) [#/Vol] 3.5 10*3/uL 1.8-7.7 [facility] Neutrophils/100 WBC Auto (Bl d)Ordered By: Piter Maharaj on 04-03-2023 Neutrophils/100 WBC (Bld) 58.4 % . [facility] No Panel InformationOrdered By: Piter Maharaj on 04-03-2023 Estimated GFR (CKD-EPI) > 60.0 mL/Min [facility] Creatinine Clearance (Chem N/A [facility] Nucleated erythrocytes [Pres ence] in Blood by Automated countOrdered By: Piter Maharaj on 04-03-2023 Nucleated RBC Auto Ql (Bld) 0.2 /100{WBC} 0-0.5 [facility] Platelet mean volume Auto (B ld) [Entitic vol]Ordered By: Piter Maharaj on 04-03-2023 Platelet mean volume (Bld) [Entitic vol] 9.3 fL 6.3-10.7 [facility] Platelets Auto (Bld) [#/Vol] Ordered By: Piter Maharaj on 04-03-2023 Platelets (Bld) [#/Vol] 189 10*3/uL 150-450 [facility] Potassium [Moles/volume] in Serum or PlasmaOrdered By: Piter Maharaj on 04-03-2023 Potassium [Moles/Vol] 3.9 mmol/L 3.5-5.1 [facility] Protein [Mass/volume] in Ser um or PlasmaOrdered By: Piter Maharaj on 04-03-2023 Protein [Mass/Vol] 6.6 g/dL 6.4-8.9 [facility] RBC Auto (Bld) [#/Vol]Ordere d By: Piter Maharaj on 04-03-2023 RBC (Bld) [#/Vol] 4.44 10*6/uL 3.60-5.00 [facility] Serum or plasma albumin/glob ulin mass ratioOrdered By: Piter Maharaj on 04-03-2023 Albumin/Globulin [Mass ratio] 2.3 {ratio} [facility] Serum or plasma anion gap de terminationOrdered By: Piter Maharaj on 04-03-2023 Anion gap [Moles/Vol] 8.9 mmol/L 6.0-15.0 [facility] Sodium [Moles/volume] in Ser um or PlasmaOrdered By: Piter Maharaj on 04-03-2023 Sodium [Moles/Vol] 140 mmol/L 136-145 [facility] Urea nitrogen [Mass/volume] in Serum or PlasmaOrdered By: iPter Maharaj on 04-03-2023 Urea nitrogen [Mass/Vol] 12 mg/dL 7-25 [facility] WBC Auto (Bld) [#/Vol]Ordere d By: Piter Maharaj on 04-03-2023 WBC (Bld) [#/Vol] 6.1 10*3/uL 3.8-11.6 [facility] XR cervical spine w flex/ext on 04-03-2023 XR cervical spine w flex/ext [address] [address] XRay Report Signed Patient: Alejandra Lynn MR#: [id number] : 1990 Acct:[id number] Age/Sex: 32 / F ADM Date: 04/03/23 Loc: XD Room: Type: [facility] Attending Dr: Dutch Pereyra MD Copies to: [...] Brian Muhammad M.D.04/03/2023 7:24 PM Dictation Location: [place] [address] Transcribed By: [facility] 04/03/231923 Dictated By: Brian Muhammad II, MD 04/03/231921 Signed By: 04/03/231923 [facility] PREG HCG QUALon 12-11-2022 , QUAL Negative Normal NEGATIVE [facility] Comment on above: Performed By: #### C MVM #### [facility] [address] [place] [address] Dr. Niurka Blount PREG HCG QUALon 12-04-2022 , QUAL Negative Normal NEGATIVE [facility] Comment on above: Performed By: #### P REG #### [facility] [address] [place] [address] Dr. Niurka Blount Coding Summary.on 11-17-2022 Coding Summary. CD:[id number] W w+PGhlYWQ+GB4FKPSmV11 jvSYmrQ3mS7KJOAyJBrve IBKBNKhPWxOkehRvGA6dr XNjZXJu IC8+SS8uFLImBdczoPWti 1Y8rQH9L11wrg8aDTthcC Z5JOSmOwAmobxbp3kulXd 6IDcuNmluOyBt UYNnkE21QHK9hV90Lj46w MWljCCaw4axkEm7NtIgUO RtJKU9rPpaRDmrt7RvHGI eU93vdKFqz4J1 MSPtgYkbsUEqKzTheXW7h Y1eFEmqpobki2utkdqvIs h1he57cBJbj3J2aYZ4M9A ameD7PUNsrGBr DpbdjUTPuV4xxzdtx1xxa knwSxZtZGWeJAi1XCr6ZQ GszMgmSkOtTA11FEH2VLN kweLyT8RcMEPs iTphKqZ8k7V2Wz0KT3RBW armP5WMRIMOIQjvmWC+PC 35xd81B8VqFuzqDlq0ABK kNSE0uVT3fE0g KRWgIHehq6Q1tPF3A2Ntk xQyxu6ii4pvYSMkHOypN8 2zwDLkt7C1ZJYfjJY2SVZ vcEmbOaIivG40 Oyc+DVAkkOgwh0YxPjwdh 1pus4jdzTh6IitcNHQwou ZpnMraAMP0q3TnBd8kMZC fpEQ7bNR9wR2e RpCmElJ3MOfzD057UmPqh KFwSkbpL62mO7YimKI+PH UkFwx7IRUxaCedGQ9xQ2J hZGRpbmctbGVm gEpjXL7cVKQrqeofYIAtw Z1tZYFjC4y5XdWpLrT4EE dgZ2UuYZPiaenoPy75dH9 sOgAjBkW2EZpt M8GwqvO5ZQVmhIWrLQgzI KP3I33th5C4YLHtHNKpAO T6eNI0vT0anPpvmdmniBB mdDsgdmVydGlj BImqZWhgT699YKKpfEzxX kNvZGluZyBEYXRlOiAgMD QvMDgvMjAyMzwvdGQ+PHR tXKN6pYjoOOTl hUCoLOnkIm9oyXgeqSnxM B7jXSBorspvUUMywU8bFA NxtTFwmFdjDT6xPTKaifz tz571RyTbECQ6 MMMipAPkS2RncH8eQzOtX LAsPFQhC7EyaGPqOWyuH1 63TQdhFcA5UHJjpdIdM9E sLWFsaWduOiB0 r4U2Zr4Am6LcjsoaU9Rmd VBvTmQtUnrcBHd5J3EyBo wvdHI+NP33PCMrJF11DZb 7KYL7xGjyMKjf VPMcK1AvbE3uIiXhABIaU GRkOyc+PHRhYmxlIHdpZH RoPScxMDAlJyBzdHlsZT0 fLj6wPCCyEMLr mCpkuICsXaRij8zaXMEjR XfiRE7ixHiuI4ObfUO5VH Tab7k6Se67C67mC1WkoHW +RXUnzEZ1hSD0 pX7dGdIkOcZ8RIroZ925V mGgcYWvHqnea0mxf7ngiD a6NwX7BTDvfnXxiEnvFVW 3b8TrQo84F93k IHdpZHRoPSIxNSUiIHZhb Rygej8ggD9hOv4+PGNvbC B4uYV9bF6aTpAhDwO2RDl fA487DqPbdYKr Hxuuw7rep5nkhKf9JkUtA QNngxHzsRaxCKJ1d1KbGa 59F1VqsFduz4VxQea2pk5 0qSTgq6F0yZU3 F6EfAMImtmmabTYfeQzyX I8cRPFsqagjXLKxoC0xTL FxS2q5LhEnBfB6GPvuL9X dfsR7GHMmjRPf MKCgxEUIxX1aaczfo0ykb iqeBgHiEKDzEQk8EIu1WQ CdjZfbAwCsBGI7BeH6RIT 8nCAfeZ9zgLbg jvuokD0fHzz+NUR6qAMuo LFOXH6jOtwwtRD+PHRkIH J0zZbfYXixYGSghI4yQFJ cM7t8SsIpCxE9 FWiwI4OapcY9PMYueLYuO CCwuKMKuG5dyesar2dare dbGiQuPJDbYEw9EUs3EYR saWduOiBsZWZ0 WfD3XIH3fXGruE2edEqwy rideU2jSqh+QmlydGggRG Q3XXn9O6XaSid3XWJtqOq zSL2vmOJsBSvg Yd6imFcriUqjRL8eNJTmy rcev142HwEqr8vhPYQucO CkSZpyHDA7P97rw2J0QLM wESNzVSF9iSF5 aN8brVsqddhtnUKqmXqgo jSreSwhUHyiUDfpK576EK UegRxwMqXqZXp9B4JeJbx 8GXKdjPfjNP0l bRGpKUplAe0khSgtiNljG G0oEPWmlgtdj675DwVis3 dbGWKiqOWcIRmtWPX4O33 en7K8ZZWnPIKv KER6aDE4xM3sdPycdfduw GVmdDsgdmVydGljYWwtYW ooA236FVPecLeyHeRaiSk 4U6UiTun6TZTf aVhiOZ7dtXTcRFdcBe9yb NiozAmyRS8gUPMnfhqbn7 47NzJzi1rjDATmyBUwRQc cXJN3O92ni0H6 LPOqUMQpJKH7lIV1tI0zu GlnbjogbGVmdDsgdmVydG ohVIvaDJzdS231QSGxzSn nPlBhdGllbnQg FTskCAp3Q3NvYzxosFP+P N50WIVaSW44wEQvgYYgb3 lkdDy3OhIwUUMnBVA6uJq cSGpod6JxTQVc G97dyPDqn2O5YIJkqKvap RPyAbSaaKW1oU8xXVqzpb yqw3muatbsFczur7twhv0 1zX87R33rJCym ZHRoPSIzMCUiIHZhbGlnb e5xvT0kIz0+YCExgML1yY U5eP0iKMHmSdV6MLvlG28 9InRvcCIvPjxj y9cfx2szvGx0EcZ2SYCqz uDqoBkwVFO3r5RpYo85D6 9sIHdpZHRoPSIyMCUiIHZ qeNqgws9wkR5f Ii8+WZJfjPC7nOY9xZ5vN iKyFdW0KFxoU221UxMhxP FaIqhpZ17sC4PsqFD+PHR xQxt3KWAomBnx IN7cpKSdCCppKz9gGXG4H jMmMpGeLAlwH9KlEFLgoa zvaldfgUV8YBFiZNIumV6 2Qd2aeIbbZVGn cEIGnK8ygqptl8brskhnO pFcXAWbCHp8THg3IDHcxX ziBuCfCOQ5MwN8QZS4rNK prO5elFmbuhxi sN3eC7IeKQTgeigzTq22j Y5yYbLfDfJ9NMvoHzp+SE 1RLt4YQceyWJhUVYxjZOn vdGQ+PHRkIHN0 gWaaNHjzLAGmyF1bCMUhV 2b4VcUqJsR9IXrlW9RyQW ZdflpzSt08wK7iTbNbBwA 4BYvoI2TutzA5 VCWnkANsCOiqSAP9G90ce 6W1NNSvKCVfABU7aPP9jC 1hbGlnbjogbGVmdDsgdmV ydGljYWwtYWxp J710JSEigCblUaOtSwGwP dV6TBO1O4BuZtl2ZBHuuG qfOR7vzVKoLQaeMz6wkKg tcXtwAQ1aWEBk zgnqEOWidE7cTUDlkCCvj BjcVP5qGZVwhqpmp225Vf VlUTS3YDEzsFYvU1CjtD5 yOiAjMDAwMDAw G9EgnEJiLOfdA494GSkfH yM1SVQjajEtQ7ItZYSmkS poCvE8l2Y8Wq0eLfRWSLL yczwvdGQ+PHRk EEW8cLdwHNehKMQtcU4eG XTsT7w2XaGxRqH3BXklG3 TbOUPqohkyPq02rJ8mNyG hNnD5DNchR5Gw kaC9ATZipIOdTUhaPPJ9H 66kw3H7BUWsAUHlYKK9uC N9pM6szQziaotnnVOmxYe gdmVydGljYWwt KSxdO439XVInbFboLhOtd WFsZTwvdGQ+RMNtKFL6rZ oxSYxqLHHwjR3nXZIfE2b 9ZtPhBrZ0QTuh N5HbBPSaokscMr14dV3nK yRsZcU1KVfrE6DlsdV0MN AukKRnBWfvJDX8N11qf3V 4VOEkMKCxCTV2 kMK7tZ1abEavprixwWTdr DsgdmVydGljYWwtYWxpZ2 41UVEkkQqzNfcgSzSHpu6 jXA9uTpnmyHQ+ EJ42nr50Q2QyGvxfAft6B QKlNZJ5gPJ8uP3kRDKxXG hka6R8bDZ3A0HwmuXgmq5 hb6rnJKHdXDtl U19qnJMav5A9CMCkxMF0T XRvtZcySkOwqJ48Htn+PG AjiFxav7IpQzyev9hvu9l jkQs2HkHoHSLd icSxhKjgWHT1v4ZlYz82I 29sIHdpZHRoPSIzMCUiIH GjsGvtsl1suE9qXm7+PGN xjTD0kNE3uU5y UiCoYzR3DErsT505SjVyv EMsEobhp2jrq4vtrAu3Jf HfDQLmtiQhhLbvIQE6i6B uLy87W5TkdDpq f1VlGxb8zt84mSLuc2F3s UT0K4CvVNUhpeoikHXkyW jmEX8lTRNpgpvdDSWfrC5 nLKXcV5w3LcUe IjK9QNoxF5EhkdP7XIGhr EUaDHDrfIWZcG9gqobpc9 bxoowiBeGsQVBnRYk9EJs 0LWFsaWduOiBs ALN0AsE2FMO8zVXvtM5vn OkznapwiC1jDze+UGh5c2 ptqSZiMM4ygTO1KG64JP3 9mYKya2X7vYY4 R8XbAECjexatupvnkKR6L GJeAQQjuB42Dn6oyYdnOc 6aIZXlSBI5PDPdkIHvD7O piX3iSsWmDHUd OAOhZ2UmxTWpVSwdK495A HznTzF5BREhdoSiY8RcXV HhxWjvZfK8d2I7En7ZJN9 1AL20VO32uRGp p5E1nMC5W3NpGDYrmxljy kxuoWS8YWYjQEHzdA61Mc 1tkUwwQs4kXSNlZHL2WHB zmCQsV7BgeJ3y PxGqEZZnUHVqP2YapHEdE RhnJ088YUrvCtY0VQEjfa GpH4QoUWZuxFfjYgS5x3B 8Yg9NCh14YO13 MF17mFIls6K9nHH3Z9AgC DQeavelvohkgAT6SJUiVX EwmF48No4hcMpmAn5fNZV jGRI6EGGjvPKc L2FviL4tQlIbDQZcKANxZ 5SrhGXvVCzeG651STwhMz V1QJIzscOoW9KuJKUkmGk mZdV0i3L4Aj1V KOqwkft5I7IxQnuddHL+P E43MQFqTO37dMQxcPMek3 nrmXy6VrZpNUGcPIW8mQc xHXnwl5WuOIXj S01mgDYy (more content not included)... Normal [facility] Physician Orderon 11-07-2022 Physician Order [id number] Normal [facility] Basic Metabolic Panelon 10-10 Anion gap [Moles/Vol] 12.5 mmol/L Normal 6.0-15.0 [facility] Comment on above: Order Comment: Reaso n for Exam Preprocedural examination Performed By: #### C BC, BMP #### [facility] [address] Calcium [Mass/Vol] 9.4 mg/dL Normal 8.6-10.3 [facility] Comment on above: Order Comment: Reaso n for Exam Preprocedural examination Result Comment: PERF ORMED BY: [place] [address] PATHOLOGIST [employer] JOANA SALCIDO M.D. Performed By: #### C BC, BMP #### [facility] [address] Chloride [Moles/Vol] 105 mmol/L Normal 98-107 [facility] Comment on above: Order Comment: Reaso n for Exam Preprocedural examination Performed By: #### C BC, BMP #### [facility] [address] [place] [id number] [place] CO2 [Moles/Vol] 26.4 mmol/L Normal 21.0-31.0 [facility] Comment on above: Order Comment: Reaso n for Exam Preprocedural examination Performed By: #### C BC, BMP #### [facility] [address] [place] [address] [place] Creatinine [Mass/Vol] 0.91 mg/dL Normal 0.60-1.20 [facility] Comment on above: Order Comment: Reaso n for Exam Preprocedural examination Performed By: #### C BC, BMP #### [facility] [address] [place] [address] [place] GFR/1.73 sq M.predicted MDRD (S/P/Bld) [Vol rate/Area] mL/min/{1.73_m2} Normal [facility] Comment on above: Order Comment: Reaso n for Exam Preprocedural examination Performed By: #### C BC, BMP #### [facility] [address] Glucose [Mass/Vol] 91 mg/dL Normal 74-109 [facility] Comment on above: Order Comment: Reaso n for Exam Preprocedural examination Result Comment: [facility] Glucose Reference Range is dependent on time and content of last meal. Glucose of more than 200 mg/dL in a nonstressed, ambulatory subject supports the diagnosis of Diabetes Mellitus. ADA recommended reference range Performed By: #### C BC, BMP #### [facility] [address] Potassium [Moles/Vol] 3.9 mmol/L Normal 3.5-5.1 [facility] Comment on above: Order Comment: Reaso n for Exam Preprocedural examination Performed By: #### C BC, BMP #### [facility] [address] [place] [address] [place] Sodium [Moles/Vol] 140 mmol/L Normal 136-145 [facility] Comment on above: Order Comment: Reaso n for Exam Preprocedural examination Performed By: #### C BC, BMP #### [facility] [address] [place] [address] [place] Urea nitrogen [Mass/Vol] 15 mg/dL Normal 7-25 [facility] Comment on above: Order Comment: Reaso n for Exam Preprocedural examination Performed By: #### C BC, BMP #### [facility] [address] [place] [id number] [place] Basophils Auto (Bld) [#/Vol] Ordered By: Gilbert Chauhan on 10-26-2022 Basophils (Bld) [#/Vol] 0.1 10*3/uL 0.0-0.2 [facility] Basophils/100 WBC Auto (Bld) Ordered By: Gilbert Chauhan on 10-26-2022 Basophils/100 WBC (Bld) 0.8 % . [facility] Calcium [Mass/volume] in Ser um or PlasmaOrdered By: Gilbert Chauhan on 10-26-2022 Calcium [Mass/Vol] 9.4 mg/dL 8.6-10.3 [facility] Carbon dioxide, total [Moles /volume] in Serum or PlasmaOrdered By: Gilbert Chauhan on 10-26-2022 CO2 [Moles/Vol] 26.4 mmol/L 21.0-31.0 [facility] Chloride [Moles/volume] in S darwin or PlasmaOrdered By: Gilbert Chauhan on 10-26-2022 Chloride [Moles/Vol] 105 mmol/L 98-107 [facility] Complete Blood Count Auto Di ffon 10-26-2022 Basophils (Bld) [#/Vol] 0.1 10*3/uL Normal 0.0-0.2 [facility] Comment on above: Order Comment: Reaso n for Exam Preprocedural examination Result Comment: PERF ORMED BY: [place] [address] PATHOLOGIST [employer]PER[employer] JOANA SALCIDO M.D. Performed By: #### C JAMEY, BMP #### [facility] [address] Basophils/100 WBC (Bld) 0.8 % Normal . [facility] Comment on above: Order Comment: Reaso n for Exam Preprocedural examination Performed By: #### C JAMEY, BMP #### [facility] [address] [place] [address] [place] Eosinophils (Bld) [#/Vol] 0.1 10*3/uL Normal 0.0-0.45 [facility] Comment on above: Order Comment: Reaso n for Exam Preprocedural examination Performed By: #### C BC, BMP #### [facility] [address] [place] [address] [place] Eosinophils/100 WBC (Bld) 1.6 % Normal . [facility] Comment on above: Order Comment: Reaso n for Exam Preprocedural examination Performed By: #### C BC, BMP #### [facility] [address] Erythrocyte distribution width (RBC) [Ratio] 12.3 % Normal 11.9-15.3 [facility] Comment on above: Order Comment: Reaso n for Exam Preprocedural examination Performed By: #### C BC, BMP #### [address] Hematocrit (Bld) [Volume fraction] 39.7 % Normal 34.0-46.4 [facility] Comment on above: Order Comment: Reaso n for Exam Preprocedural examination Performed By: #### C BC, BMP #### [address] Hemoglobin (Bld) [Mass/Vol] 13.9 g/dL Normal 11.8-15.4 [facility] Comment on above: Order Comment: Reaso n for Exam Preprocedural examination Performed By: #### C BC, BMP #### [address] Lymphocytes (Bld) [#/Vol] 1.5 10*3/uL Normal 1.00-4.8 [facility] Comment on above: Order Comment: Reaso n for Exam Preprocedural examination Performed By: #### C BC, BMP #### [place] [address] [place] Lymphocytes/100 WBC (Bld) 20.0 % Normal . [facility] Comment on above: Order Comment: Reaso n for Exam Preprocedural examination Performed By: #### C BC, BMP #### [address] MCH (RBC) [Entitic mass] 30.9 pg Normal 24.7-34.3 [facility] Comment on above: Order Comment: Reaso n for Exam Preprocedural examination Performed By: #### C BC, BMP #### [facility] [address] MCV (RBC) [Entitic vol] 88.2 fL Normal 80-100 [facility] Comment on above: Order Comment: Reaso n for Exam Preprocedural examination Performed By: #### C BC, BMP #### [address] Mean Corpuscular HGB Conc 35.1 g/dL High 32.0-35.0 [facility] Comment on above: Order Comment: Reaso n for Exam Preprocedural examination Performed By: #### C BC, BMP #### [address] Monocytes (Bld) [#/Vol] 0.6 10*3/uL Normal 0.0-0.8 [facility] Comment on above: Order Comment: Reaso n for Exam Preprocedural examination Performed By: #### C BC, BMP #### [place] [address] [place] Monocytes/100 WBC (Bld) 7.6 % Normal . [facility] Comment on above: Order Comment: Reaso n for Exam Preprocedural examination Performed By: #### C BC, BMP #### [place] [address] [place] Neutrophils (Bld) [#/Vol] 5.1 10*3/uL Normal 1.8-7.7 [facility] Comment on above: Order Comment: Reaso n for Exam Preprocedural examination Performed By: #### C BC, BMP #### [facility] [address] [place] [address] [place] Neutrophils/100 WBC (Bld) 70.0 % Normal . [facility] Comment on above: Order Comment: Reaso n for Exam Preprocedural examination Performed By: #### C BC, BMP #### [place] [address] [place] NRBC% 0.3 /100{WBC} Normal 0-0.5 [facility] Comment on above: Order Comment: Reaso n for Exam Preprocedural examination Performed By: #### C BC, BMP #### [facility] [address] Platelet mean volume (Bld) [Entitic vol] 9.7 fL Normal 6.3-10.7 [facility] Comment on above: Order Comment: Reaso n for Exam Preprocedural examination Performed By: #### C BC, BMP #### [address] Platelets (Bld) [#/Vol] 188 10*3/uL Normal 150-450 [facility] Comment on above: Order Comment: Reaso n for Exam Preprocedural examination Performed By: #### C BC, BMP #### [address] RBC (Bld) [#/Vol] 4.50 10*6/uL Normal 3.60-5.00 [facility] Comment on above: Order Comment: Reaso n for Exam Preprocedural examination Performed By: #### C BC, BMP #### [address] WBC (Bld) [#/Vol] 7.3 10*3/uL Normal 3.8-11.6 [facility] Comment on above: Order Comment: Reaso n for Exam Preprocedural examination Performed By: #### C BC, BMP #### [address] Creatinine [Mass/volume] in Serum or PlasmaOrdered By: Gilbert Chauhan on 10-26-2022 Creatinine [Mass/Vol] 0.91 mg/dL 0.60-1.20 [facility] Eosinophils Auto (Bld) [#/Vo l]Ordered By: Gilbert Chauhan on 10-26-2022 Eosinophils (Bld) [#/Vol] 0.1 10*3/uL 0.0-0.45 [facility] Eosinophils/100 WBC Auto (Bl d)Ordered By: Gilbert Chauhan on 10-26-2022 Eosinophils/100 WBC (Bld) 1.6 % . [facility] Erythrocyte distribution wid th Auto (RBC) [Ratio]Ordered By: Gilbert Chauhan on 10-26-2022 Erythrocyte distribution width (RBC) [Ratio] 12.3 % 11.9-15.3 [facility] Glucose [Mass/volume] in Ser um or PlasmaOrdered By: Gilbert Chauhan on 10-26-2022 Glucose [Mass/Vol] 91 mg/dL 74-109 [facility] Comment on above: ADA recommended refe rence rangeRandom Glucose Reference Range is dependent on time and content of last meal. Glucose of more than 200 mg/dL in a nonstressed, ambulatory subject supports the diagnosis of Diabetes Mellitus. Hematocrit Auto (Bld) [Volum e fraction]Ordered By: Gilbert Chauhan on 10-26-2022 Hematocrit (Bld) [Volume fraction] 39.7 % 34.0-46.4 [facility] Hemoglobin [Mass/volume] in BloodOrdered By: Gilbert Chauhan on 10-26-2022 Hemoglobin (Bld) [Mass/Vol] 13.9 g/dL 11.8-15.4 [facility] Laboratory - Chemistry and C hemistry - challengeOrdered By: Gilbert Chauhan on 10-26-2022 GFR/1.73 sq M.predicted MDRD (S/P/Bld) [Vol rate/Area] mL/min/{1.73_m2} [facility] Leukocytes [#/volume] correc ricardo for nucleated erythrocytes in Blood by Automated counOrdered By: Gilbert Chauhan on 10-26-2022 WBC corrected for nucl RBC Auto (Bld) [#/Vol] 7.3 10*3/uL 3.8-11.6 [facility] Lymphocytes Auto (Bld) [#/Vo l]Ordered By: Gilbert Chauhan on 10-26-2022 Lymphocytes (Bld) [#/Vol] 1.5 10*3/uL 1.00-4.8 [facility] Lymphocytes/100 WBC Auto (Bl d)Ordered By: Gilbert Chauhan on 10-26-2022 Lymphocytes/100 WBC (Bld) 20.0 % . [facility] MCH Auto (RBC) [Entitic mass ]Ordered By: Gilbert Chauhan on 10-26-2022 MCH (RBC) [Entitic mass] 30.9 pg 24.7-34.3 [facility] MCHC Auto (RBC) [Mass/Vol]Or dered By: Gilbert Chauhan on 10-26-2022 MCHC (RBC) [Mass/Vol] 35.1 g/dL 32.0-35.0 [facility] MCV Auto (RBC) [Entitic vol] Ordered By: Gilbert Chauhan on 10-26-2022 MCV (RBC) [Entitic vol] 88.2 fL 80-100 [facility] Monocytes Auto (Bld) [#/Vol] Ordered By: Gilbert Chauhan on 10-26-2022 Monocytes (Bld) [#/Vol] 0.6 10*3/uL 0.0-0.8 [facility] Monocytes/100 WBC Auto (Bld) Ordered By: Gilbert Chauhna on 10-26-2022 Monocytes/100 WBC (Bld) 7.6 % . F [facility] Neutrophils Auto (Bld) [#/Vo l]Ordered By: Gilbert Chauhan on 10-26-2022 Neutrophils (Bld) [#/Vol] 5.1 10*3/uL 1.8-7.7 [facility] Neutrophils/100 WBC Auto (Bl d)Ordered By: Gilbert Chauhan on 10-26-2022 Neutrophils/100 WBC (Bld) 70.0 % . [facility] No Panel InformationOrdered By: Gilbert Chauhan on 10-26-2022 Pharmacy Creatinine Clearance (Chem N/A [facility] Nucleated erythrocytes [Pres ence] in Blood by Automated countOrdered By: Gilbert Chauhan on 10-26-2022 Nucleated RBC Auto Ql (Bld) 0.3 /100{WBC} 0-0.5 [facility] Platelet mean volume Auto (B ld) [Entitic vol]Ordered By: Gilbert Chauhan on 10-26-2022 Platelet mean volume (Bld) [Entitic vol] 9.7 fL 6.3-10.7 [facility] Platelets Auto (Bld) [#/Vol] Ordered By: Gilbert Chauhan on 10-26-2022 Platelets (Bld) [#/Vol] 188 10*3/uL 150-450 [facility] Potassium [Moles/volume] in Serum or PlasmaOrdered By: Gilbert Cahuhan on 10-26-2022 Potassium [Moles/Vol] 3.9 mmol/L 3.5-5.1 [facility] RBC Auto (Bld) [#/Vol]Ordere d By: Gilbert Chauhan on 10-26-2022 RBC (Bld) [#/Vol] 4.50 10*6/uL 3.60-5.00 [facility] Serum or plasma anion gap de terminationOrdered By: Gilbert Chauhan on 10-26-2022 Anion gap [Moles/Vol] 12.5 mmol/L 6.0-15.0 [facility] Sodium [Moles/volume] in Ser um or PlasmaOrdered By: Gilbert Chauhan on 10-26-2022 Sodium [Moles/Vol] 140 mmol/L 136-145 [facility] Urea nitrogen [Mass/volume] in Serum or PlasmaOrdered By: Gilbert Chauhan on 10-26-2022 Urea nitrogen [Mass/Vol] 15 mg/dL 7-25 [facility] WBC Auto (Bld) [#/Vol]Ordere d By: Gilbert Chauhan on 10-26-2022 WBC (Bld) [#/Vol] 7.3 10*3/uL 3.8-11.6 [facility] XR chest 2V*on 10-26-2022 XR chest 2V* [facility] [place] [address] XRay Report Signed Patient: Alejandra Lynn MR#: [id number] 819 : 1990 Acct:[id number] Age/Sex: 32 / F ADM Date: 10/26/22 Loc: XD Room: Type: [facility] CL Attending Dr: Gilbert Chauhan DPM Copies to: [...] Lares Jr., D.OChani10/26/2022 5:47 PM Dictation Location: [place] [address] Transcribed By: [facility] 10/26/221746 Dictated By: Waylon Lares Jr, DO 10/26/221746 Signed By: 10/26/221746 Normal [facility] PREG HCG QUALon 10-09-2022 , QUAL Negative Normal NEGATIVE [facility] Comment on above: Performed By: #### P REG #### [facility] [address] [place] [address] HEAD WO CONon [...] DEANN THOMASON Date: 2022-09-21 14:32 Normal [facility] XR ankle LT min 3V*on 2022 XR ankle LT min 3V* [facility] Main [place] [address] [place] [id number] XRay Report Signed Patient: Alejandra Lynn MR#: [id number] 819 : 1990 Acct:[id number] Age/Sex: 31 / F ADM Date: 08/23/22 Loc: XDUCLY Room: Type: [facility] Attending Dr: Marla Winslow APRN Copies to: Marla Winslow APRN Ordering Provider: Marla Winslow APRN Date of Service: 08/23/22 XR/XR ankle LT min 3V*: LEFT ANKLE INJURY 3views LEFTankle COMPARISON:None HISTORY: LEFT ankle injury No fracture, dislocation or focal soft tissue abnormality seen. XR/XR ankle LT min 3V* IMPRESSION: No acute findings. Impression dictated by: Carrington Flores M.D.08/23/2022 2:20 PM Dictation Location: [place] [address] Transcribed By: [facility] 08/23/22 1420 Dictated By: Carrington Flores DO 08/23/22 1345 Signed By: 08/23/22 1420 Normal [facility] PREG HCG QUALon 08-21-2022 , QUAL Negative Normal NEGATIVE [facility] Comment on above: Performed By: #### S EDR #### [facility] [address] [place] [address] Dr. Niurka Blount CMV AB IGMon 07-21-2022 Cytomegalovirus (CMV) Ab, IgM <30.0 Normal 0.0-29.9 [facility] Comment on above: Result Comment: Nega tive <30.0 Equivocal 30.0 - 34.9 Positive >34.9 A positive result is generally indicative of acute infection, reactivation or persistent IgM production. Performed By: #### C MVM #### [facility] [address] [place] [address] Dr. Niurka Blount CMV AB, IGGon 07-21-2022 Cytomegalovirus (CMV) Ab, IgG <0.60 Normal 0.00-0.59 [facility] Comment on above: Result Comment: Nega tive <0.60 Equivocal 0.60 - 0.69 Positive >0.69 Performed By: #### C MVIGG #### [facility] [address] [place] [address] Dr. Niurka Blount CBC AUTO DIFFon 07-17-2022 BASO # 0.0 103/ul Normal 0.0-0.1 [facility] Comment on above: Performed By: #### S EDR #### [facility] [address] [place] [address] Dr. Niurka Blount Basophils/100 WBC (Bld) 0.4 % Normal 0.2-2.0 [place] Comment on above: Performed By: #### S EDR #### [facility] [address] [place] [address] Dr. Niurka Blount EO # 0.0 103/ul Normal 0.0-0.7 [facility] Comment on above: Performed By: #### S EDR #### [facility] [address] [place] [address] Dr. Niurka Blount Eosinophils/100 WBC (Bld) 0.0 % Critically low 0.9-7.0 [facility] Comment on above: Performed By: #### S EDR #### [facility] [address] [place] [address] Dr. Niurka Blount Erythrocyte distribution width (RBC) [Ratio] 11.4 % Normal 11.0-15.0 [facility] Comment on above: Performed By: #### S EDR #### [facility] [address] [place] [address] Dr. Niurka Blount Hematocrit (Bld) [Volume fraction] 40.2 % Normal 36.0-48.0 [facility] Comment on above: Performed By: #### S EDR #### [facility] [address] [place] [address] Dr. Niurka Blount Hemoglobin (Bld) [Mass/Vol] 14.5 g/dL Normal 12.0-16.0 [facility] Comment on above: Performed By: #### S EDR #### [facility] [address] [place] [address] Dr. Niurka Blount IG # 0.08 10e3/ul Critically high 0.00-0.03 [facility] Comment on above: Performed By: #### S EDR #### [facility] [address] [place] [address] Dr. Niurka Blount IG % 0.8 % Critically high 0.0-0.5 [facility] Comment on above: Performed By: #### S EDR #### [facility] [address] [place] [address] Dr. Niurka Blount LYMPH # 1.3 103/ul Normal 1.2-3.8 [facility] Comment on above: Performed By: #### S EDR #### [facility] [address] [place] [address] Dr. Niurka Blount Lymphocytes/100 WBC (Bld) 12.0 % Critically low 20.5-60.0 [facility] Comment on above: Performed By: #### S EDR #### [facility] [address] [place] [address] Dr. Niurka Blount MANUAL DIFF REQ NO Normal [facility] Comment on above: Performed By: #### S EDR #### [facility] [address] [place] [address] Dr. Niurka Blount MCH (RBC) [Entitic mass] 30.5 pg Normal 26.7-34.0 [facility] Comment on above: Performed By: #### S EDR #### [facility] [address] [place] [address] Dr. Niurka Blount MCHC (RBC) [Mass/Vol] 36.1 g/dL Critically high 29.9-35.2 [facility] Comment on above: Performed By: #### S EDR #### [facility] [address] [place] [address] Dr. Niurka Blount MCV (RBC) [Entitic vol] 84.6 fL Normal 81.0-99.0 [place] Comment on above: Performed By: #### S EDR #### [facility] [address] [place] [address] Dr. Niurka Blount MONO # 0.6 103/ul Normal 0.3-0.8 [facility] Comment on above: Performed By: #### S EDR #### [facility] [address] [place] [address] Dr. Niurka Blount Monocytes/100 WBC (Bld) 5.6 % Normal 1.7-12.0 [place] Comment on above: Performed By: #### S EDR #### [facility] [address] [place] [address] Dr. Niurka Blount NEUT # 8.5 103/ul Critically high 1.4-6.5 [facility] Comment on above: Performed By: #### S EDR #### [facility] [address] [place] [address] Dr. Niurka Blount Neutrophils/100 WBC (Bld) 81.2 % Critically high 43.0-75.0 [facility] Comment on above: Performed By: #### S EDR #### [facility] [address] [place] [address] Dr. Niurka Blount Platelet mean volume (Bld) [Entitic vol] 10.6 fL Normal 9.5-13.5 [facility] Comment on above: Performed By: #### S EDR #### [facility] [address] [place] [address] Dr. Niurka Blount PLT 277 103/ul Normal 150-450 [facility] Comment on above: Performed By: #### S EDR #### [facility] [address] [place] [address] Dr. Niurka Blount RBC 4.75 106/ul Normal 4.20-5.40 [facility] Comment on above: Performed By: #### S EDR #### [facility] [address] [place] [address] Dr. Niurka Blount WBC 10.5 103/ul Normal 4.0-11.0 [facility] Comment on above: Performed By: #### S EDR #### [facility] [address] [place] [address] Dr. Niurka Blount CRPon 07-17-2022 CRP [Mass/Vol] mg/L Normal <=1.0 [facility] Comment on above: Performed By: #### C MVM #### [facility] [address] [place] [address] ABD/PELV W CONon [...] VANNA GARLAND Date: 2022-07-17 18:12 Normal [facility] ER URINE PROFILEon 2 Bilirubin Ql (U) Negative Normal NEGATIVE [facility] Comment on above: Performed By: #### E RUR #### [facility] [address] [place] [address] Dr. Niurka Blount Clarity (U) CLEAR Normal CLEAR [facility] Comment on above: Performed By: #### E RUR #### [facility] [address] [place] [address] Dr. Niurka Blount Color (U) LT. YELLOW Normal YELLOW [facility] Comment on above: Performed By: #### E RUR #### [facility] [address] [place] [address] Dr. Niurka Blount ERUAHD A micrscopic examination will be performed if indicated. Normal [facility] Comment on above: Performed By: #### E RUR #### [facility] [address] [place] [address] Dr. Niurka Blount Glucose Ql (U) Negative Normal NEGATIVE [facility] Comment on above: Performed By: #### E RUR #### [facility] [address] [place] [address] Dr. Niurka Blount Hemoglobin Ql (U) Negative Normal NEGATIVE [facility] Comment on above: Performed By: #### E RUR #### [facility] [address] [place] [address] Dr. Niurka Blount Ketones Ql (U) Negative Normal NEGATIVE [facility] Comment on above: Performed By: #### E RUR #### [facility] [address] [place] [address] Dr. Niurka Blount LEUKOCYTES Negative Normal NEGATIVE [facility] Comment on above: Performed By: #### E RUR #### [facility] [address] [place] [address] Dr. Niurka Blount Nitrite Ql (U) Negative Normal NEGATIVE [facility] Comment on above: Performed By: #### E RUR #### [facility] [address] [place] [address] Dr. Niurka Blount pH (U) 6.0 [pH] Normal 5-9 [facility] Comment on above: Performed By: #### E RUR #### [facility] [address] [place] [address] Dr. Niurka Blount SPEC GRAVITY 1.010 Normal 1.005-<=1.02 5 [facility] Comment on above: Performed By: #### E RUR #### [facility] [address] [place] [address] Dr. Niurka Blount UA PROTEIN Negative Normal NEGATIVE/ TRACE [facility] Comment on above: Performed By: #### E RUR #### [facility] [address] [place] [address] Dr. Niurka Blount UR MICRO IND NOT INDICATED Normal [facility] Comment on above: Performed By: #### E RUR #### [facility] [address] [address] [address] Niurka Blount Urobilinogen Qn (U) 0.2 {David'U}/dL Normal 0.2 - 1. 0 [facility] Comment on above: Performed By: #### E RUR #### [facility] [address] [place] [address] Dr. Niurka Blount LACTATE/LACTIC ACIDon 2021 Lactate [Moles/Vol] 1.6 mmol/L Normal 0.4-1.9 [facility] Comment on above: Performed By: #### E RUR #### [facility] [address] [place] [address] Dr. Niurka Blonut LIPASEon 07-17-2022 Lipase [Catalytic activity/Vol] 105.0 U/L Normal 73.0-393.0 [facility] Comment on above: Performed By: #### C MVM #### [facility] [address] [place] [address] Dr. Niurka Blount PREG HCG QUALon 07-17-2022 , QUAL Negative Normal NEGATIVE [facility] Comment on above: Performed By: #### P REG #### [facility] [address] [place] [address] Dr. Niurka Blount PROF 14(COMP METB)on 022 Albumin [Mass/Vol] 4.4 g/dL Normal 3.4-5.0 [facility] Comment on above: Performed By: #### C MVM #### [facility] [address] [place] [address] Dr. Niurka Blount Albumin/Globulin [Mass ratio] 1.4 {ratio} Normal [facility] Comment on above: Performed By: #### C MVM #### [facility] [address] [address] [address] Niurka Blount ALP [Catalytic activity/Vol] 82 U/L Normal 46-116 [facility] Comment on above: Performed By: #### C MVM #### [facility] [address] [address] [address] Niurka Blount ALT [Catalytic activity/Vol] 16 U/L Normal 14-59 [facility] Comment on above: Performed By: #### C MVM #### [facility] [address] [address] [address] Niurka Blount Anion gap [Moles/Vol] 11.6 mmol/L Normal [facility] Comment on above: Performed By: #### C MVM #### [facility] [address] [address] [address] Niurka Blount AST [Catalytic activity/Vol] 7 U/L Critically low 15-37 [facility] Comment on above: Performed By: #### C MVM #### [facility] [address] [address] [address] Niurka Blount Bilirubin [Mass/Vol] 0.6 mg/dL Normal 0.2-1.0 [facility] Comment on above: Performed By: #### C MVM #### [facility] [address] [address] [address] Niurka Blount Calcium [Mass/Vol] 8.8 mg/dL Normal 8.5-10.1 [facility] Comment on above: Performed By: #### C MVM #### [facility] [address] [address] [address] Niurka Blount Chloride [Moles/Vol] 103 mmol/L Normal 98-107 [facility] Comment on above: Performed By: #### C MVM #### [facility] [address] [address] [address] Niurka Blount CO2 [Moles/Vol] 24.4 mmol/L Normal 21.0-32.0 [facility] Comment on above: Performed By: #### C MVM #### [facility] [address] [address] [address] Niurka Blount Creatinine [Mass/Vol] 0.67 mg/dL Normal 0.55-1.02 [facility] Comment on above: Performed By: #### C MVM #### [facility] [address] [address] [address] Niurka Blount EGFR-AF GUATEMALAN >60 Normal >=60 [facility] Comment on above: Performed By: #### C MVM #### [facility] [address] [address] [address] Niurka Blount EGFR-NON AF GUATEMALAN >60 Normal >=60 [facility] Comment on above: Performed By: #### C MVM #### [facility] [address] [address] [address] Niurka Blount Globulin (S) [Mass/Vol] 3.1 g/dL Normal [place] Comment on above: Performed By: #### C MVM #### [facility] [address] [address] [address] Niurka Blount Glucose [Mass/Vol] 109 mg/dL Critically high 74-106 [place] Comment on above: Performed By: #### C MVM #### [facility] [address] [address] [address] Niurka Blount Potassium [Moles/Vol] 4.0 mmol/L Normal 3.5-5.1 [facility] Comment on above: Performed By: #### C MVM #### [facility] [address] [address] [address] Niurka Blount Protein [Mass/Vol] 7.5 g/dL Normal 6.4-8.2 [facility] Comment on above: Performed By: #### C MVM #### [facility] [address] [address] [address] Niurka Blount Sodium [Moles/Vol] 135 mmol/L Critically low 136-145 [facility] Comment on above: Performed By: #### C MVM #### [facility] [address] [place] [address] Dr. Niurka Blount Urea nitrogen [Mass/Vol] 8.0 mg/dL Normal 7.0-18.0 [facility] Comment on above: Performed By: #### C MVM #### [facility] [address] [place] [address] Dr. Niurka Blount Urea nitrogen/Creatinine [Mass ratio] 11.9 mg/mg Normal [facility] Comment on above: Performed By: #### C MVM #### [facility] [address] [place] [address] Dr. Niurka Blount SED RATE WESTERGRENon 2021 SED RATE 3 mm/hr Normal <=20 [facility] Comment on above: Performed By: #### S EDR #### [facility] [address] [place] [address] Dr. Niurka Blount CBC AUTO DIFFon 07-13-2022 BASO # 0.1 103/ul Normal 0.0-0.1 [facility] Comment on above: Performed By: #### S EDR #### [facility] [address] [place] [address] Dr. Niurka Blount Basophils/100 WBC (Bld) 0.7 % Normal 0.2-2.0 [place] Comment on above: Performed By: #### S EDR #### [facility] [address] [place] [address] Dr. Niurka Blount EO # 0.1 103/ul Normal 0.0-0.7 [facility] Comment on above: Performed By: #### S EDR #### [facility] [address] [place] [address] Dr. Niurka Blount Eosinophils/100 WBC (Bld) 1.3 % Normal 0.9-7.0 [facility] Comment on above: Performed By: #### S EDR #### [facility] [address] [place] [address] Dr. Niurka Blount Erythrocyte distribution width (RBC) [Ratio] 11.3 % Normal 11.0-15.0 [facility] Comment on above: Performed By: #### S EDR #### [facility] [address] [address] [address] Niurka Blount Hematocrit (Bld) [Volume fraction] 40.4 % Normal 36.0-48.0 [facility] Comment on above: Performed By: #### S EDR #### [facility] [address] [address] [address] Niurka Blount Hemoglobin (Bld) [Mass/Vol] 14.2 g/dL Normal 12.0-16.0 [facility] Comment on above: Performed By: #### S EDR #### [facility] [address] [address] [address] Niurka Blount IG # 0.02 10e3/ul Normal 0.00-0.03 [facility] Comment on above: Performed By: #### S EDR #### [facility] [address] [address] [address] Niurka Blount IG % 0.2 % Normal 0.0-0.5 [facility] Comment on above: Performed By: #### S EDR #### [facility] [address] [address] [address] Niurka Blount LYMPH # 1.9 103/ul Normal 1.2-3.8 [facility] Comment on above: Performed By: #### S EDR #### [facility] [address] [address] [address] Niurka Blount Lymphocytes/100 WBC (Bld) 22.1 % Normal 20.5-60.0 [facility] Comment on above: Performed By: #### S EDR #### [facility] [address] [address] [address] Niurka Blount MANUAL DIFF REQ NO Normal [facility] Comment on above: Performed By: #### S EDR #### [facility] [address] [address] [address] Niurka Blount MCH (RBC) [Entitic mass] 30.0 pg Normal 26.7-34.0 [facility] Comment on above: Performed By: #### S EDR #### [facility] [address] [address] [address] Niurka Blount MCHC (RBC) [Mass/Vol] 35.1 g/dL Normal 29.9-35.2 [facility] Comment on above: Performed By: #### S EDR #### [facility] [address] [place] [address] Dr. Niurka Blount MCV (RBC) [Entitic vol] 85.4 fL Normal 81.0-99.0 [place] Comment on above: Performed By: #### S EDR #### [facility] [address] [place] [address] Dr. Niurka Blount MONO # 0.6 103/ul Normal 0.3-0.8 [facility] Comment on above: Performed By: #### S EDR #### [facility] [address] [place] [address] Dr. Niurka Blount Monocytes/100 WBC (Bld) 6.8 % Normal 1.7-12.0 [place] Comment on above: Performed By: #### S EDR #### [facility] [address] [place] [address] Dr. Niurka Blount NEUT # 6.0 103/ul Normal 1.4-6.5 [facility] Comment on above: Performed By: #### S EDR #### [facility] [address] [place] [address] Dr. Niurka Blount Neutrophils/100 WBC (Bld) 68.9 % Normal 43.0-75.0 [facility] Comment on above: Performed By: #### S EDR #### [facility] [address] [place] [address] Dr. Niurka Blount Platelet mean volume (Bld) [Entitic vol] 10.7 fL Normal 9.5-13.5 [facility] Comment on above: Performed By: #### S EDR #### [facility] [address] [place] [address] Dr. Niurka Blount PLT 247 103/ul Normal 150-450 [facility] Comment on above: Performed By: #### S EDR #### [facility] [address] [place] [address] Dr. Niurka Blount RBC 4.73 106/ul Normal 4.20-5.40 [facility] Comment on above: Performed By: #### S EDR #### [facility] [address] [place] [address] Dr. Niurka Blount WBC 8.7 103/ul Normal 4.0-11.0 [facility] Comment on above: Performed By: #### S EDR #### [facility] [address] [place] [address] Dr. Niurka Blount FREE T3on 07-13-2022 FREE T3 2.53 pg/mlL Normal 2.18-3.98 [facility] Comment on above: Performed By: #### E RUR #### [facility] [address] [place] [address] Dr. Niurka Blount PROF 14(COMP METB)on 022 Albumin [Mass/Vol] 4.3 g/dL Normal 3.4-5.0 [facility] Comment on above: Performed By: #### E RUR #### [facility] [address] [place] [address] Dr. Niurka Blount Albumin/Globulin [Mass ratio] 1.5 {ratio} Normal [facility] Comment on above: Performed By: #### E RUR #### [facility] [address] [place] [address] Dr. Niurka Blount ALP [Catalytic activity/Vol] 79 U/L Normal 46-116 [facility] Comment on above: Performed By: #### E RUR #### [facility] [address] [place] [address] Dr. Niurka Blount ALT [Catalytic activity/Vol] 14 U/L Normal 14-59 [facility] Comment on above: Performed By: #### E RUR #### [facility] [address] [place] [address] Dr. Niurka Blount Anion gap [Moles/Vol] 11.5 mmol/L Normal [facility] Comment on above: Performed By: #### E RUR #### [facility] [address] [address] [address] Niurka Blount AST [Catalytic activity/Vol] 10 U/L Critically low 15-37 [facility] Comment on above: Performed By: #### E RUR #### [facility] [address] [address] [address] Niurka Blount Bilirubin [Mass/Vol] 0.4 mg/dL Normal 0.2-1.0 [facility] Comment on above: Performed By: #### E RUR #### [facility] [address] [address] [address] Niurka Blount Calcium [Mass/Vol] 8.8 mg/dL Normal 8.5-10.1 [facility] Comment on above: Performed By: #### E RUR #### [facility] [address] [address] [address] Niurka Blount Chloride [Moles/Vol] 103 mmol/L Normal 98-107 [facility] Comment on above: Performed By: #### E RUR #### [facility] [address] [address] [address] Niurka Blount CO2 [Moles/Vol] 26.2 mmol/L Normal 21.0-32.0 [facility] Comment on above: Performed By: #### E RUR #### [facility] [address] [address] [address] Niurka Blount Creatinine [Mass/Vol] 0.71 mg/dL Normal 0.55-1.02 [facility] Comment on above: Performed By: #### E RUR #### [facility] [address] [address] [address] Niurka Blount EGFR-AF GUATEMALAN >60 Normal >=60 [facility] Comment on above: Performed By: #### E RUR #### [facility] [address] [address] [address] Niurka Blount EGFR-NON AF GUATEMALAN >60 Normal >=60 [facility] Comment on above: Performed By: #### E RUR #### [facility] [address] [address] [address] Niurka Blount Globulin (S) [Mass/Vol] 2.9 g/dL Normal [place] Comment on above: Performed By: #### E RUR #### [facility] [address] [address] [address] Niurka Blount Glucose [Mass/Vol] 119 mg/dL Critically high 74-106 [place] Comment on above: Performed By: #### E RUR #### [facility] [address] [place] [address] Dr. Niurka Blount Potassium [Moles/Vol] 3.7 mmol/L Normal 3.5-5.1 [facility] Comment on above: Performed By: #### E RUR #### [facility] [address] [place] [address] Dr. Niurka Blount Protein [Mass/Vol] 7.2 g/dL Normal 6.4-8.2 [facility] Comment on above: Performed By: #### E RUR #### [facility] [address] [place] [address] Dr. Niurka Blount Sodium [Moles/Vol] 137 mmol/L Normal 136-145 [facility] Comment on above: Performed By: #### E RUR #### [facility] [address] [place] [address] Dr. Niurka Blount Urea nitrogen [Mass/Vol] 11.0 mg/dL Normal 7.0-18.0 [facility] Comment on above: Performed By: #### E RUR #### [facility] [address] [place] [address] Dr. Niurka Blount Urea nitrogen/Creatinine [Mass ratio] 15.5 mg/mg Normal [facility] Comment on above: Performed By: #### E RUR #### [facility] [address] [place] [address] Dr. Niurka Blount TSHon 07-13-2022 TSH 0.543 uIU/mL Normal 0.358-3.740 [facility] Comment on above: Performed By: #### E RUR #### [facility] [address] [place] [address] Dr. Niurka Blount QUANTIFERON TB GOLD PLUSon 0 05-01-2022 QuantiFERON Criteria Comment Normal [facility] Comment on above: Result Comment: Morris [...] test. Performed By: #### Q NTTB #### [facility] [address] [place] [address] Dr. Niurka Blount QuantiFERON Incubation Incubation performed. Normal [facility] Comment on above: Performed By: #### Q NTTB #### [facility] [address] [place] [address] Dr. Niurka Blount QuantiFERON Mitogen Value >10.00 Normal [facility] Comment on above: Performed By: #### Q NTTB #### [facility] [address] [place] [address] Dr. Niurka Blount QuantiFERON Nil Value 0.02 IU/mL Normal [facility] Comment on above: Performed By: #### Q NTTB #### [facility] [address] [place] [address] Dr. Niurka Blount QuantiFERON TB1 Ag Value 0.02 IU/mL Normal [facility] Comment on above: Performed By: #### Q NTTB #### [facility] [address] [place] [address] Dr. Niurka Blount QuantiFERON TB2 Ag Value 0.02 IU/mL Normal [facility] Comment on above: Performed By: #### Q NTTB #### [facility] [address] [place] [address] Dr. Niurka Blount QuantiFERON-TB Gold Plus Negative Normal Negative [facility] Comment on above: Result Comment: No r esponse to M tuberculosis antigens detected. Infection with M tuberculosis is unlikely, but high risk individuals should be considered for additional testing (ATS/IDSA/CDC Clinical Practice Guidelines, 2017). The reference range is an Antigen minus Nil result of <0.35 IU/mL. Chemiluminescence immunoassay methodology Performed By: #### Q NTTB #### [facility] [address] [place] [address] Dr. Niurka Blount HEP B COREon 04-29-2022 Hep B Core Ab, Tot Negative Normal Negative [facility] Comment on above: Performed By: #### E RUR #### [facility] [address] [place] [address] Dr. Nuirka Blount HEP B SURFACE ANTIGEN SCREEN on 04-29-2022 HBsAg Screen Negative Normal Negative [facility] Comment on above: Performed By: #### E RUR #### [facility] [address] [place] [address] Dr. Niurka Blount CBC AUTO DIFFon 04-27-2022 BASO # 0.0 103/ul Normal 0.0-0.1 [facility] Comment on above: Performed By: #### E RUR #### [facility] [address] [place] [address] Dr. Niurka Blount Basophils/100 WBC (Bld) 0.5 % Normal 0.2-2.0 [place] Comment on above: Performed By: #### E RUR #### [facility] [address] [place] [address] Dr. Niurka Blount EO # 0.1 103/ul Normal 0.0-0.7 [facility] Comment on above: Performed By: #### E RUR #### [facility] [address] [place] [address] Dr. Niurka Blount Eosinophils/100 WBC (Bld) 1.5 % Normal 0.9-7.0 [facility] Comment on above: Performed By: #### E RUR #### [facility] [address] [place] [address] Dr. Niurka Blount Erythrocyte distribution width (RBC) [Ratio] 11.9 % Normal 11.0-15.0 [facility] Comment on above: Performed By: #### E RUR #### [facility] [address] [place] [address] Dr. Niurka Blount Hematocrit (Bld) [Volume fraction] 39.2 % Normal 36.0-48.0 [facility] Comment on above: Performed By: #### E RUR #### [facility] [address] [place] [address] Dr. Niurka Blount Hemoglobin (Bld) [Mass/Vol] 13.9 g/dL Normal 12.0-16.0 [facility] Comment on above: Performed By: #### E RUR #### [facility] [address] [place] [address] Dr. Niurka Blount IG # 0.03 10e3/ul Normal 0.00-0.03 [facility] Comment on above: Performed By: #### E RUR #### [facility] [address] [place] [address] Dr. Niurka Blount IG % 0.4 % Normal 0.0-0.5 [facility] Comment on above: Performed By: #### E RUR #### [facility] [address] [place] [address] Dr. Niurka Blount LYMPH # 2.2 103/ul Normal 1.2-3.8 [facility] Comment on above: Performed By: #### E RUR #### [facility] [address] [place] [address] Dr. Niurka Blount Lymphocytes/100 WBC (Bld) 26.3 % Normal 20.5-60.0 [facility] Comment on above: Performed By: #### E RUR #### [facility] [address] [place] [address] Dr. Niurka Blount MANUAL DIFF REQ NO Normal [facility] Comment on above: Performed By: #### E RUR #### [facility] [address] [place] [address] Dr. Niurka Blount MCH (RBC) [Entitic mass] 30.5 pg Normal 26.7-34.0 [facility] Comment on above: Performed By: #### E RUR #### [facility] [address] [place] [address] Dr. Niurka Blount MCHC (RBC) [Mass/Vol] 35.5 g/dL Critically high 29.9-35.2 [facility] Comment on above: Performed By: #### E RUR #### [facility] [address] [place] [address] Dr. Niurka Blount MCV (RBC) [Entitic vol] 86.2 fL Normal 81.0-99.0 [place] Comment on above: Performed By: #### E RUR #### [facility] [address] [place] [address] Dr. Niurka Blount MONO # 0.6 103/ul Normal 0.3-0.8 [facility] Comment on above: Performed By: #### E RUR #### [facility] [address] [place] [address] Dr. Niurka Blount Monocytes/100 WBC (Bld) 7.2 % Normal 1.7-12.0 [place] Comment on above: Performed By: #### E RUR #### [facility] [address] [place] [address] Dr. Niurka Blount NEUT # 5.4 103/ul Normal 1.4-6.5 [facility] Comment on above: Performed By: #### E RUR #### [facility] [address] [place] [address] Dr. Niurka Blount Neutrophils/100 WBC (Bld) 64.1 % Normal 43.0-75.0 [facility] Comment on above: Performed By: #### E RUR #### [facility] [address] [place] [address] Dr. Niurka Blount Platelet mean volume (Bld) [Entitic vol] 10.4 fL Normal 9.5-13.5 [facility] Comment on above: Performed By: #### E RUR #### [facility] [address] [place] [address] Dr. Niurka Blount PLT 235 103/ul Normal 150-450 [facility] Comment on above: Performed By: #### E RUR #### [facility] [address] [address] [address] Niurka Blount RBC 4.55 106/ul Normal 4.20-5.40 [facility] Comment on above: Performed By: #### E RUR #### [facility] [address] [place] [address] Dr. Niurka Blount WBC 8.5 103/ul Normal 4.0-11.0 [facility] Comment on above: Performed By: #### E RUR #### [facility] [address] [place] [address] Dr. Niurka Blount CRPon 04-27-2022 CRP [Mass/Vol] mg/L Normal <=1.0 [facility] Comment on above: Performed By: #### C MP, CRP #### [facility] [address] [place] [address] Dr. Niurka Blount PROF 14(COMP METB)on 022 Albumin [Mass/Vol] 4.2 g/dL Normal 3.4-5.0 [facility] Comment on above: Performed By: #### C MP, CRP #### [facility] [address] [place] [address] Dr. Niurka Blount Albumin/Globulin [Mass ratio] 1.4 {ratio} Normal [facility] Comment on above: Performed By: #### C MP, CRP #### [facility] [address] [place] [address] Dr. Niurka Blount ALP [Catalytic activity/Vol] 80 U/L Normal 46-116 [facility] Comment on above: Performed By: #### C MP, CRP #### [facility] [address] [place] [address] Dr. Niurka Blount ALT [Catalytic activity/Vol] 26 U/L Normal 14-59 [facility] Comment on above: Performed By: #### C MP, CRP #### [facility] [address] [place] [address] Dr. Niurka Blount Anion gap [Moles/Vol] 11.4 mmol/L Normal [facility] Comment on above: Performed By: #### C MP, CRP #### [facility] [address] [address] [address] Niurka Blount AST [Catalytic activity/Vol] 13 U/L Critically low 15-37 [facility] Comment on above: Performed By: #### C MP, CRP #### [facility] [address] [address] [address] Niurka Blount Bilirubin [Mass/Vol] 0.4 mg/dL Normal 0.2-1.0 [facility] Comment on above: Performed By: #### C MP, CRP #### [facility] [address] [address] [address] Niurka Blount Calcium [Mass/Vol] 8.8 mg/dL Normal 8.5-10.1 [facility] Comment on above: Performed By: #### C MP, CRP #### [facility] [address] [place] [address] Dr. Niurka Blount Chloride [Moles/Vol] 106 mmol/L Normal 98-107 [facility] Comment on above: Performed By: #### C MP, CRP #### [facility] [address] [address] [address] Niurka Blount CO2 [Moles/Vol] 26.5 mmol/L Normal 21.0-32.0 [facility] Comment on above: Performed By: #### C MP, CRP #### [facility] [address] [place] [address] Dr. Niurka Blount Creatinine [Mass/Vol] 0.80 mg/dL Normal 0.55-1.02 [facility] Comment on above: Performed By: #### C MP, CRP #### [facility] [address] [address] [address] Niurka Blount EGFR-AF GUATEMALAN >60 Normal >=[address] [facility] Comment on above: Performed By: #### C MP, CRP #### [facility] [address] [address] [address] Niurka Blount EGFR-NON AF GUATEMALAN >60 Normal >=60 [facility] Comment on above: Performed By: #### C MP, CRP #### [facility] [address] [address] [address] Niurka Blount Globulin (S) [Mass/Vol] 3.0 g/dL Normal [place] Comment on above: Performed By: #### C MP, CRP #### [facility] [address] [address] [address] Niurka Blount Glucose [Mass/Vol] 113 mg/dL Critically high 74-106 [place] Comment on above: Performed By: #### C MP, CRP #### [facility] [address] [address] [address] Niurka Blount Potassium [Moles/Vol] 3.9 mmol/L Normal 3.5-5.1 [facility] Comment on above: Performed By: #### C MP, CRP #### [facility] [address] [place] [address] Dr. Niurka Blount Protein [Mass/Vol] 7.2 g/dL Normal 6.4-8.2 [facility] Comment on above: Performed By: #### C MP, CRP #### [facility] [address] [address] [address] Niurka Blount Sodium [Moles/Vol] 140 mmol/L Normal 136-145 [facility] Comment on above: Performed By: #### C MP, CRP #### [facility] [address] [address] [address] Niurka Blount Urea nitrogen [Mass/Vol] 9.0 mg/dL Normal 7.0-18.0 [facility] Comment on above: Performed By: #### C MP, CRP #### [facility] [address] [address] [address] Niurka Blount Urea nitrogen/Creatinine [Mass ratio] 11.2 mg/mg Normal [facility] Comment on above: Performed By: #### C MP, CRP #### [facility] [address] [place] [address] Dr. Niurka Blount [facility] 2 mm/hr Normal <=20 [facility] Comment on above: Performed By: #### E RUR #### [facility] [address] [address] [address] Niurka Blount MRI VIVIAN WO CONon 04-06-20 MRI CSPINE WO CON [...] DEANN THOMASON Date: 2022-04-06 11:21 Normal [facility] XR CSPINE MIN 4 VIEWSon 01-12 [...] ISABEL CHAVEZ Date: 2022-02-08 17:24 Normal [facility] Albumin [Mass/volume] in Ser um or PlasmaOrdered By: Piter Maharaj on 09-18-2021 Albumin [Mass/Vol] 4.3 g/dL 3.2-5.5 [facility] Basophils Auto (Bld) [#/Vol] Ordered By: Piter Maharaj on 09-18-2021 Basophils (Bld) [#/Vol] 0.0 10*3/uL 0.0-0.2 [facility] Basophils/100 WBC Auto (Bld) Ordered By: Piter Maharaj on 09-18-2021 Basophils/100 WBC (Bld) 0.7 % . [facility] C reactive protein [Mass/vol ume] in Serum or PlasmaOrdered By: Piter Maharaj on 09-18-2021 CRP [Mass/Vol] 1.1 mg/dL 0.0-1.0 [facility] Creatinine and Glomerular fi ltration rate.predicted panel (S/P/Bld)Ordered By: Piter Maharaj on 09-18-2021 Creatinine [Mass/Vol] 0.73 mg/dL 0.44-1.03 [facility] Eosinophils Auto (Bld) [#/Vo l]Ordered By: Piter Maharaj on 09-18-2021 Eosinophils (Bld) [#/Vol] 0.1 10*3/uL 0.0-0.45 [facility] Eosinophils/100 WBC Auto (Bl d)Ordered By: Piter Maharaj on 09-18-2021 Eosinophils/100 WBC (Bld) 1.9 % . [facility] Erythrocyte distribution wid th Auto (RBC) [Ratio]Ordered By: Piter Maharaj on 09-18-2021 Erythrocyte distribution width (RBC) [Ratio] 12.0 % 11.9-15.3 [facility] Erythrocyte sedimentation ra te by Photometric methodOrdered By: Piter Maharaj on 09-18-2021 ESR Photometric method (Bld) [Velocity] 3 mm/hr 0-19 [facility] Estimated glomerular filtrat ion rate (GFR) non- AmericanOrdered By: Piter Maharaj on 09-18-2021 GFR/1.73 sq M.predicted among non-blacks MDRD (S/P/Bld) [Vol rate/Area] > 60 mL/Min [facility] Globulin Calc (S) [Mass/Vol] Ordered By: Piter Mhaaraj on 09-18-2021 Globulin (S) [Mass/Vol] 2.2 g/dL [facility] Hematocrit Auto (Bld) [Volum e fraction]Ordered By: Piter Maharaj on 09-18-2021 Hematocrit (Bld) [Volume fraction] 42.2 % 34.0-46.4 [facility] Hemoglobin [Mass/volume] in BloodOrdered By: Piter Maharaj on 09-18-2021 Hemoglobin (Bld) [Mass/Vol] 14.6 g/dL 11.8-15.4 [facility] Laboratory - Hematology and Cell countsOrdered By: Piter Maharaj on 09-18-2021 Nucleated RBC/100 WBC (Bld) [Ratio] 0.1 % 0-0.5 [facility] Leukocytes [#/volume] in Blo od by Automated countOrdered By: Piter Maharaj on 09-18-2021 WBC (Bld) [#/Vol] 6.6 10*3/uL 4.5-11.0 [facility] Lymphocytes Auto (Bld) [#/Vo l]Ordered By: Piter Maharaj on 09-18-2021 Lymphocytes (Bld) [#/Vol] 2.3 10*3/uL 1.00-4.8 [facility] Lymphocytes/100 WBC Auto (Bl d)Ordered By: Piter Maharaj on 09-18-2021 Lymphocytes/100 WBC (Bld) 34.0 % . [facility] MCH Auto (RBC) [Entitic mass ]Ordered By: Piter Maharaj on 09-18-2021 MCH (RBC) [Entitic mass] 30.0 pg 24.7-34.3 [facility] MCHC Auto (RBC) [Mass/Vol]Or dered By: Piter Maharaj on 09-18-2021 MCHC (RBC) [Mass/Vol] 34.6 g/dL 32.0-35.0 [facility] MCV Auto (RBC) [Entitic vol] Ordered By: Piter Maharaj on 09-18-2021 MCV (RBC) [Entitic vol] 86.6 fL 80-100 [facility] Monocytes Auto (Bld) [#/Vol] Ordered By: Piter Maharaj on 09-18-2021 Monocytes (Bld) [#/Vol] 0.5 10*3/uL 0.0-0.8 [facility] Monocytes/100 WBC Auto (Bld) Ordered By: Piter Maharaj on 09-18-2021 Monocytes/100 WBC (Bld) 8.2 % . [facility] Neutrophils Auto (Bld) [#/Vo l]Ordered By: Piter Maharaj on 09-18-2021 Neutrophils (Bld) [#/Vol] 3.7 10*3/uL 1.8-7.7 [facility] Neutrophils/100 WBC Auto (Bl d)Ordered By: Piter Maharaj on 09-18-2021 Neutrophils/100 WBC (Bld) 55.2 % . [facility] No Panel InformationOrdered By: Piter Maharaj on 09-18-2021 Estimated GFR () > 60 mL/Min [facility] Comment on above: GFR estimated refere nce range: According to KDOQI guidelines, <60 ml/min/1.73m2 is sufficient to diagnose a patient with chronic kidney disease. Pharmacy Creatinine Clearance (Chem 102.56 [facility] Platelet mean volume Auto (B ld) [Entitic vol]Ordered By: Piter Maharaj on 09-18-2021 Platelet mean volume (Bld) [Entitic vol] 8.8 fL 6.3-10.7 [facility] Platelets Auto (Bld) [#/Vol] Ordered By: Piter Maharaj on 09-18-2021 Platelets (Bld) [#/Vol] 222 10*3/uL 150-450 [facility] Protein [Mass/volume] in Ser um or PlasmaOrdered By: Piter Maharaj on 09-18-2021 Protein [Mass/Vol] 6.5 g/dL 6.1-7.9 [facility] RBC Auto (Bld) [#/Vol]Ordere d By: Piter Maharaj on 09-18-2021 RBC (Bld) [#/Vol] 4.87 10*6/uL 3.60-5.00 [facility] Serum or plasma alanine rodriguez otransferase measurement without P-5'-P (enzymatic activiOrdered By: Piter Maharaj on 09-18-2021 ALT No additional P-5'-P [Catalytic activity/Vol] 23 U/L 10-60 [facility] Serum or plasma albumin/glob ulin mass ratioOrdered By: Piter Maharaj on 09-18-2021 Albumin/Globulin [Mass ratio] 2.0 {ratio} [facility] Serum or plasma alkaline susan sphatase measurement (enzymatic activity/volume)Ordered By: Piter Maharaj on 09-18-2021 ALP [Catalytic activity/Vol] 84 U/L 32-92 [facility] Serum or plasma aspartate am inotransferase measurement (enzymatic activity/volume)Ordered By: Piter Maharaj on 09-18-2021 AST [Catalytic activity/Vol] 20 U/L 10-42 [facility] Serum or plasma calcium toni urement (mass/volume)Ordered By: Piter Maharaj on 09-18-2021 Calcium [Mass/Vol] 9.3 mg/dL 8.2-10.2 [facility] Serum or plasma chloride carina surement (moles/volume)Ordered By: Pitre Maharaj on 09-18-2021 Chloride [Moles/Vol] 103 mmol/L 95-114 [facility] Serum or plasma glucose toni urement (mass/volume)Ordered By: Piter Maharaj on 09-18-2021 Glucose [Mass/Vol] 80 mg/dL 70-100 [facility] Comment on above: ADA recommended refe rence rangeRandom Glucose Reference Range is dependent on time and content of last meal. Glucose of more than 200 mg/dL in a nonstressed, ambulatory subject supports the diagnosis of Diabetes Mellitus. Serum or plasma potassium me asurement (moles/volume)Ordered By: Piter Maharaj on 02-07-2022 Potassium [Moles/Vol] 4.0 mmol/L 3.5-5.1 [facility] Serum or plasma sodium measu rement (moles/volume)Ordered By: Piter Maharaj on 09-18-2021 Sodium [Moles/Vol] 139 mmol/L 136-146 [facility] Serum or plasma total biliru bin measurement (mass/volume)Ordered By: Piter Maharaj on 09-18-2021 Bilirubin [Mass/Vol] 0.8 mg/dL 0.3-1.2 [facility] Serum or plasma total carbon dioxide measurement (moles/volume)Ordered By: Piter Maharaj on 09-18-2021 CO2 [Moles/Vol] 27.0 mmol/L 22.0-30.0 [facility] Serum or plasma urea nitroge n measurement (mass/volume)Ordered By: Piter Maharaj on 09-18-2021 Urea nitrogen [Mass/Vol] 14 mg/dL 9- [facility] ESR Westergren method (Bld) [Velocity]on 04-11-2020 ESR (Bld) [Velocity] 2 mm/h 0-32 [facility] Comment on above: Performed at: [address] Director: Gerry Martinez PhD, Phone: [phone] Laboratory - Hematology and Cell countson 04-11-2020 WBC (Bld) [#/Vol] 5.0 10*3/uL 4.5-11.0 [facility] Vital Signs Date Time Vital Sign Value 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 Clinician Facility 01-24-2024 11:17-0400 Body height 157.48 cm [facility] 01-24-2024 11:17-0400 Body mass index (BMI) [Ratio] 25 kg/m2 [facility] 01-24-2024 11:17-0400 Body weight 62.14 kg [facility] 09-17-2023 13:30-0500 Body height 157.48 cm Piter Maharaj Other [facility] 09-17-2023 13:30-0500 Body mass index (BMI) [Ratio] 23.34 kg/m2 Piter Maharaj Other [facility] 09-17-2023 13:30-0500 Body weight 57.88 kg Piter Maharaj Other [facility] Other 04-04-2023 10:40-0400 Body height 157.48 cm Dutch Pereyra Other [facility] Other 04-04-2023 10:40-0400 Body mass index (BMI) [Ratio] 23.41 kg/m2 Dutch Pereyra Other [facility] Other 04-04-2023 10:40-0400 Body weight 58.06 kg Dutch Pereyra Other [facility] Other 04-04-2023 10:40-0400 Diastolic blood pressure 66 mm[Hg] Dutch Pereyra Other [facility] Other 04-04-2023 10:40-0400 Systolic blood pressure 104 mm[Hg] Dutch Pereyra Other [facility] Other 03-12-2023 13:15-0400 Body height 157.48 cm Piter Maharaj Other [facility] Other 03-12-2023 13:15-0400 Body mass index (BMI) [Ratio] 24.32 kg/m2 Piter Maharaj Other [facility] Other 03-12-2023 13:15-0400 Body weight 60.33 kg Piter Maharaj Other [facility] Other 03-12-2023 13:15-0400 Diastolic blood pressure 80 mm[Hg] Piter Maharaj Other [facility] Other 03-12-2023 13:15-0400 Systolic blood pressure 119 mm[Hg] Piter Maharaj Other [facility] Other 09-11-2022 14:15-0500 Body height 157.48 cm Piter Maharaj Other [facility] Other 09-11-2022 14:15-0500 Body mass index (BMI) [Ratio] 28.16 kg/m2 Piter Maharaj Other [facility] Other 09-11-2022 14:15-0500 Body weight 69.85 kg Piter Maharaj Other [facility] Other 09-11-2022 14:15-0500 Diastolic blood pressure 71 mm[Hg] Piter Maharaj Other [facility] Other 09-11-2022 14:15-0500 Systolic blood pressure 100 mm[Hg] Piter Maharaj Other [facility] Other 07-25-2022 11:45-0500 Body height 157.48 cm Piter Maharaj Other [facility] Other 07-25-2022 11:45-0500 Body mass index (BMI) [Ratio] 27.43 kg/m2 Piter Maharaj Other [facility] Other 07-25-2022 11:45-0500 Body weight 68.04 kg Piter Maharaj Other [facility] Other 07-25-2022 11:45-0500 Diastolic blood pressure 94 mm[Hg] Piter Maharaj Other [facility] Other 07-25-2022 11:45-0500 Systolic blood pressure 132 mm[Hg] Piter Nicko Other [facility] Other 06-25-2022 15:25-0500 Diastolic blood pressure 83 mm[Hg] II Stoney Giles Work Phone: [facility] 06-25-2022 15:25-0500 Heart rate 60 /min II Stoney Giles Work Phone: [facility] 06-25-2022 15:25-0500 Systolic blood pressure 137 mm[Hg] II Stoney Giles Work Phone: [facility] 05-29-2022 14:06-0400 Body temperature 97.7 [degF] II Stoney Giles Work Phone: [facility] 05-29-2022 14:06-0400 Respiratory rate 18 /min II Stoney Giles Work Phone: [facility] 05-29-2022 14:06-0400 SaO2% (BldA) [Mass fraction] 95 % II Stoney Giles Work Phone: [facility] 05-23-2022 11:45-0400 Body height 157.48 cm Piter Maharaj Other [facility] Other 05-23-2022 11:45-0400 Body mass index (BMI) [Ratio] 28.35 kg/m2 Piter Maharaj Other [facility] Other 05-23-2022 11:45-0400 Body weight 70.31 kg Piter Maharaj Other [facility] Other 04-25-2022 12:00-0400 Body height 157.48 cm Piter Maharaj Other [facility] Other 04-25-2022 12:00-0400 Body mass index (BMI) [Ratio] 28.16 kg/m2 Piter Maharaj Other [facility] Other 04-25-2022 12:00-0400 Body weight 69.85 kg Piter Maharaj Other [facility] Other 10-30-2021 14:48-0400 Body height 157.48 cm II Stoney Giles Work Phone: [facility] 10-30-2021 14:48-0400 Body mass index (BMI) [Ratio] 29.8 kg/m2 II Stoney Giles Work Phone: [facility] 10-30-2021 14:48-0400 Body weight 73.93 kg II Stoney Giles Work Phone: [facility] 07-24-2021 11:45-0500 Body height 157.48 cm Piter Maharaj Other [facility] Other 07-24-2021 11:45-0500 Body mass index (BMI) [Ratio] 29.26 kg/m2 Piter Maharaj Other [facility] Other 07-24-2021 11:45-0500 Body weight 72.58 kg Piter Maharaj Other [facility] Other Encounters Encounter Date Encounter Type Care Provider Facility Start: 01-24-2024 End: 01-24-2024 ambulatory [facility] Work Phone: Start: 01-24-2024 End: 01-24-2024 Patient encounter procedure [facility]ly [facility] Gastroenterology Work Phone: Start: 01-03-2024 [...] Available Start: 12-11-2023 End: 12-11-2023 ambulatory STONEY B GILES Not Available Start: 12-03-2023 End: 12-03-2023 [...] 09-17-2023 End: 09-17-2023 ambulatory Piter Maharaj Other [facility] Other Start: 09-17-2023 Office outpatient visit 15 minutes Piter Maharaj [facility] Gastroenterology Start: 09-16-2023 End: 09-16-2023 ambulatory NOAH B APLING Not Available Start: 09-11-2023 End: 09-12-2023 ambulatory NOAH B APLING Not Available Start: 09-11-2023 End: 09-11-2023 ambulatory STONEY B GILES Not Available Start: 08-16-2023 End: 08-16-2023 ambulatory JOHN SHUKLA Not Available Start: 07-18-2023 End: 07-18-2023 ambulatory JAVED POONAM Not Available Start: 04-04-2023 End: 04-04-2023 ambulatory Dutch Pereyra Other [facility] Other Start: 04-04-2023 Office outpatient new 30 minutes Dutch Pereyra [facility] [place] [facility] Start: 04-03-2023 End: 04-03-2023 ambulatory Dutch Rita Pereyra Facility:[facility] Start: 04-03-2023 End: 04-03-2023 Patient encounter procedure II Stoney Giles Work Phone: [facility] Work Phone: Start: 03-12-2023 End: 03-12-2023 ambulatory Piter Nicko Other [facility] Other Start: 03-12-2023 Office outpatient visit 15 minutes Piter Maharaj [facility] Gastroenterology Start: 01-01-[address] STONEY GILES Facilit y:[facility] Start: 12-18-2022 End: 12-19-2022 ambulatory NARENDRANATH LAKSHMIPATHY . Facility:[facility] Start: 12-11-2022 End: 12-11-2022 ambulatory ISABELLA VAUGHN Facility:[facility] Start: 12-04-2022 End: 12-04-2022 ambulatory STONEY ASKEW Facility:[facility] Start: 11-07-2022 End: 11-08-2022 ambulatory Gilbert Chauhan Facility:[facility] Start: 10-26-2022 End: 10-26-2022 ambulatory Gilbert Chauhan Facility:[facility] Start: 10-26-2022 End: 10-26-2022 ambulatory II Stoney Giles Work Phone: [facility] Work Phone: Start: 10-26-2022 End: 10-26-2022 Patient encounter procedure II Stoney Giles Work Phone: [facility] Work Phone: Start: 10-23-2022 End: 10-24-2022 ambulatory NARENDRANATH LAKSHMIPATHY . Facility:[facility] Start: 10-09-2022 End: 10-09-[address] ALEENA ANAND . Facility:[facility] Start: 09-21-2022 End: 09-21-[address] DEANN THOMASON Facility:[facility] Start: 2022 End: 09-14-2022 ambulatory YESSI ARBOLEDA . Facility:[facility] Start: 09-11-2022 End: 09-11-2022 ambulatory Piter Maharaj Other [facility] Other Start: 09-11-2022 Office outpatient visit 15 minutes Piter Maharaj [facility] Start: 08-23-2022 End: 08-23-2022 ambulatory Marla Winslow Facility:[facility] Start: 08-23-2022 End: 08-23-2022 ambulatory II Stoney Giles Work Phone: [facility] Work Phone: Start: 08-23-2022 End: 08-23-2022 Patient encounter procedure II Stoney Giles Work Phone: [facility] Work Phone: Start: 08-21-2022 End: 08-21-[address] ALEENA ANAND . Facility:[facility] Start: 08-20-2022 End: 08-20-2022 ambulatory Piter Maharaj Other [facility] Other Start: 08-20-2022 Telephone encounter Piter moctezuma [facility] Start: 08-08-2022 End: 08-08-2022 ambulatory Piter Maharaj Other [facility] Other Start: 08-08-2022 Telephone encounter Piter moctezuma [facility] Start: 07-31-2022 End: 08-01-[address] ALEENA ANAND . Facility:[facility] Start: 07-30-2022 End: 07-30-2022 ambulatory Piter Maharaj Other [facility] Other Start: 07-30-2022 Telephone encounter Piter moctezuma [facility] Start: 07-25-2022 End: 07-25-2022 ambulatory Piter Maharaj Other [facility] Other Start: 07-25-2022 Patient encounter procedure Piter Maharaj [facility] Start: 07-20-2022 End: 07-21-[address] Jamel MAHARAJ Facility: Start: 07-18-2022 End: 07-18-2022 ambulatory Piter Maharaj Other [facility] Other Start: 07-18-2022 Telephone encounter Piter moctezuma [facility] Start: 07-17-2022 End: 07-17-2022 ambulatory RAE HIRSCH . [facility] Other Start: 07-17-2022 Telephone encounter Piter moctezuma [facility] Start: 07-13-2022 End: 07-14-[address] STONEY GILES [facility] Other Start: 07-13-2022 Telephone encounter Piter moctezuma [facility] Start: 07-03-2022 End: 07-03-2022 ambulatory Piter Maharaj Other [facility] Other Start: 07-03-2022 Telephone encounter Piter moctezuma [facility] Start: 06-25-2022 End: 06-25-2022 ambulatory Stoney Giles Facility:[facility] Start: 06-25-2022 Registered Recurring II Stoney Giles Work Phone: [facility] Work Phone: Start: 05-23-2022 End: 05-23-2022 ambulatory Piter Maharaj Other [facility] Other Start: 05-23-2022 Office outpatient visit 15 minutes Piter Maharaj [facility] Start: 04-27-2022 End: 04-28-[address] Jamel MAHARAJ Facility:[facility] Start: 04-25-2022 End: 04-25-2022 ambulatory Piter Maharaj Other [facility] Other Start: 04-25-2022 Office outpatient visit 25 minutes Piter Maharaj [facility] Start: 04-25-2022 Telephone encounter Piter moctezuma [facility] Start: 04-05-2022 End: 04-06-[address] STONEY GILES Facility:[facility] Start: 02-08-2022 End: 02-09-[address] STONEY GILES Facility:[facility] Start: 01-15-2022 End: 01-15-2022 ambulatory Piter Maharaj Other [facility] Other Start: 01-15-2022 Telephone encounter Piter moctezuma [facility] Start: 07-24-2021 End: 07-24-2021 ambulatory Piter Maharaj Other [facility] Other Start: 07-24-2021 Office outpatient visit 15 minutes Piter Maharaj [facility] Start: 06-29-2021 End: 06-29-2021 ambulatory Piter Maharaj Other [facility] Other Start: 06-29-2021 Telephone encounter Piter moctezuma [...] lic 2000 panel - Serum or Plasma [facility] enter CT Abdomen and Pelvis [facility] Immunizations Immunization Date Immunization Notes Care Provider Fa cility 12-21-2014 tetanus toxoid, redu nora diphtheria toxoid, and acellular pertussis vaccine, adsorbed Piter Maharaj Other [facility] Payers Date Payer Category Payer Medicaid [id number] 2019 Self-pay [id number] 2019 Unknown [id number] 1990 Unknown [id number] 2.16.840.1.994905.3.579.2.727 1990 Unknown [id number] 2.16.840.1.570420.3.579.2.593 1990 Unknown [id number] 2.16.840.1.682243.3.579.2.593 1990 Unknown [id number] 2.16.840.1.838547.3.579.2.593 1990 Unknown [id number] 2.16.840.1.280257.3.579.2.593 1990 Unknown [id number] 2.16.840.1.621730.3.579.2.593 1990 Unknown [id number] 2.16.840.1.226070.3.579.2.593 1990 Unknown [id number] 2.16.840.1.833091.3.579.2.593 1990 Unknown [id number] 2.16.840.1.999416.3.579.2.593 1990 Unknown [id number] 2.16.840.1.721657.3.579.2.593 1990 Unknown [id number] 2.16.840.1.441704.3.579.2.593 1990 Unknown [id number] 2.16.840.1.176092.3.579.2.593 1990 Unknown [id number] 2.16.840.1.102814.3.579.2.593 1990 Unknown [id number] 2.16.840.1.207769.3.579.2.593 1990 Unknown [id number] 2.16.840.1.691608.3.579.2.593 1990 Unknown [id number] 2.16.840.1.378848.3.579.2.593 1990 Unknown [id number] 2.16.840.1.059114.3.579.2.593 1990 Unknown [id number] 2.16.840.1.886784.3.579.2.9 1990 Unknown [id number] 2.16.840.1.004868.3.579.2.9 1990 Unknown [id number] 2.16.840.1.932967.3.579.2.9 1990 Unknown [id number] 2.16.840.1.046517.3.579.2.9 1990 Unknown [id number] 2.16.840.1.143622.3.579.2.9 1990 Unknown [id number] 2.16.840.1.190994.3.579.2.1259 1990 Unknown [id number] 2.16.840.1.367082.3.579.2.1259 1990 Unknown [id number] 2.16.840.1.036178.3.579.2.1259 1990 Unknown [id number] 2.16.840.1.531561.3.579.2.9 1990 Unknown [id number] 2.16.840.1.058502.3.579.2.1259 1990 Unknown [id number] 2.16.840.1.899003.3.579.2.1259 1990 Unknown [id number] 2.16.840.1.052272.3.579.2.9 1990 Unknown [id number] 2.16.840.1.268800.3.579.2.9 1990 Unknown [id number] 2.16.840.1.210238.3.579.2.9 1990 Unknown [id number] 2.16.840.1.112912.3.579.2.9 1990 Unknown [id number] 2.16.840.1.125216.3.579.2.9 1990 Unknown [id number] 2.16.840.1.776810.3.579.2.9 1990 Unknown [id number] 2.16.840.1.423731.3.579.2.9 1990 Unknown [id number] 2.16.840.1.918305.3.579.2.9 1990 Unknown [id number] 2.16.840.1.231204.3.579.2.9 1959 Unknown [id number] 2.16.840.1.588216.19 Private Health Insurance [facility] [id number] Unknown [id number] 2.16.840.1.088179.3.579.2.531 Social History Date Type Detail Facility Sex Assigned At [facility] Other Start: 12-23-2018 End: 12-23-2018 Tobacco smoking status FLIS Smoker (finding) [facility] Start: 1990 Sex Assigned At Female F [facility] Start: 10-21-2023 [facility] Clinical Notes 07-24-2021 to 09-17-2023 Note Date & Type Note Facility 09-17-2023 Evaluation note Encounter Date Diagnosis Assessment Notes Sep, Crohns disease (ICD-10 - K50.90) Patient reports that she is doing well on Stelara and will continue with this therapy Patient reports that she has had recent labs done and we will obtain records release for this RTO 6 months [facility] Other 08-24-2023 Evaluation note* Encounter Date Diagnosis [...] 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 Also, of note, she uses Hebron infrequently. She takes half a pill at a time, when she does use it, and she uses less than 14 pills in a month. Her OARRS report was reconciled. She does report the medicine does improve her quality of life, level of functioning and sleep pattern.[facility] [id number] Note CONSULTATION CONSULTATION DATE: 2022 This is [...] self-massage which she finds beneficial. Medications include Hebron 5/325, half pill p.r.n. as needed because [...] be followed in the office there after.[facility] [id number] Evaluation note* Encounter Date Diagnosis Assessment Notes Treatment Notes Treatment Clinical Notes Aug, Crohns disease (ICD-10 - K50.90) Continue Stelara without change Labs and follow up in 6 months [facility] Other 12-20-2022 NoteCONSULTATION CONSULTATION DATE: 07/31/2022 CHIEF [...] currently takes Aleve two tablets a day, Hebron 5/325 on a p.r.n. basis. She tries [...] C4-5 and C6-7. CC: Stoney Giles M.D.[facility] [id number] Evaluation note* Encounter Date Diagnosis Assessment Notes Treatment Notes Treatment Clinical Notes Jul, Crohns disease (ICD-10 - K50.90) CONTINUE STELARA DIRECTED DECREASE PREDNISONE TO 40 MG DAILY FOR 7 DAYS, THEN DECREASE BY 10 MG WEEKLY RTO 6 WEEKS [facility] Other 12-07-2022 Evaluation note* Encounter Date Diagnosis Assessment Notes Treatment Notes Treatment Clinical Notes Jul, Crohns disease (ICD-10 - K50.90) [facility] Other 10-12-2022 Evaluation note* Encounter Date Diagnosis Assessment Notes Treatment Notes Treatment Clinical Notes May, Crohns disease (ICD-10 - K50.90) May, Diarrhea (ICD-10 - R19.7) May, Abdominal cramping (ICD-10 - R10.9) [facility] Other 09-14-2022 Evaluation note* Encounter Date Diagnosis Assessment Notes Treatment Notes Treatment Clinical Notes Apr, Crohns disease (ICD-10 - K50.90) PT HAS TRIED AND FAILED HUMIRA AND ENTYVIO START PPW FOR SKYRIZI RTO 4 WEEKS Apr, Diarrhea (ICD-10 - R19.7) Apr, Abdominal cramping (ICD-10 - R10.9) [facility] Other 06-30-2022 NotePROCEDURE: XR FOOT RT 2V COMPARISON: None. HISTORY: Pain in right foot FINDINGS: BONES:No acute fracture or dislocation. Mild enthesopathic spurring of the calcaneus at the Achilles insertion SOFT TISSUES:Negative. No visible soft tissue swelling. EFFUSION:None visible. OTHER: Negative. IMPRESSION: No acute abnormality Electronically authenticated by: ISABEL CHAVEZ Date: 2022-02-08 17:18[facility] [id number] Evaluation note* Encounter Date Diagnosis Assessment Notes [...] 6 WEEKS, LABS ORDERED AT THIS TIME. [facility] Other Evaluation noteNo InformationNort EdRover Other Evaluation noteNo assessment information available [facility] Work Phone: Evaluation note* Diagnosis Onset Date Resolution Status Crohn disease acute [facility] Work Phone: Hismrpr general Narrative - Reported* Type Description Date Medical History shegalla Surgical History tonsillectomy Hospitalization History childbirth [facility] Other Hisbffz general Narrative - Reported* Type Description Date Medical History shegalla Surgical History tonsillectomy Surgical History RFA Hospitalization History childbirth [facility] Other Hisggxu general Narrative - Reported* Type Description Date Medical History shegalla Medical History anxiety Medical History Crohns disease Surgical History tonsillectomy Surgical History RFA Hospitalization History childbirth Hospitalization History see above surg. hx. [facility] Other Chief Complaint and Reason for Visit [...] LRM. PT WAS TO HAVE LABS DRAWN.PREDNISONE [id number] STELARA INJECTIONSTELARA SHOTPT HERE FOR 3 MONTH [...] section and content) DATE CREATED AUTHOR 11/18/2022 [facility] DATE CREATED AUTHOR AUTHOR'S ORGANIZ ATION 12/23/2022 [facility] DATE CREATED AUTHOR AUTHOR'S ORGANIZ ATION 04/04/2023 [facility] DATE CREATED AUTHOR AUTHOR'S TERRANCE ATION 01/05/2024 [facility] FOR RECORDS PERTAINING TO PATIENTS WHO ARE [...] BE BASED ON THE PRIMARY CLINICAL RECORDS. [facility] [employer] [facility]. provides no warranty or guarantee of the accuracy or completeness of information in this document.
--- NOTE | 2024-04-09 09:07 | P.CN_ITS ---
Consult Note: HPI Data of Consult Patient: known to practice within the last 3 years Requesting Physician: Lisandra Alcantar NP Primary Care Provider: CHIDI PARKER Consult Narrative Reason for consult: F/u Narrative: Alejandra Lynn a pleasant 32 year old female presents for evaluation and management of chronic neck pain and radiculopathy. Patient has previously been evaluated by NS and deemed nonsurgical. Patient did not find benefit from cervical RFAs as she had many complications per patient. Patient found >50% pain relief for 3 months from most recent JUAN however pain and radicular symptoms are worsening at this time. Patient discontinued zonegran due to side effects and was not interested in gabapentin. Patient has noticed increase in pain since stopping skelaxin and would like to restart. Pain today 6/10 in neck and right shoulder. Following with orthopedics for chronic right shoulder bursitis, last injection december 2023 with benefit. cc:: CC: Lisandra Alcantar NP Review of Systems ROS Status of ROS 10 or more systems reviewed and unremark able except as noted in history and below Musculoskeletal Reports: neck pain and joint pain PFSH PFSH Medical History Crohn's disease ?K50.90 - Crohn's disease, unspecified, without complications (ICD-10) Neck ache ?M54.2 - Cervicalgia (ICD-10) Spondylosis without myelopathy or radiculopathy, cervical region ?M47.812 - Spondylosis without myelopathy or radiculopathy, cervical region (ICD-10) Surgical History History of tonsillectomy ?Z90.89 - Acquired absence of other organs (ICD-10) Social History Smoking status: Former smoker Meds Home Medications and Allergies Home Medications ?Medication ?Instructions ?Recorded ?Confirmed ?Type hydrocodone 5 mg-acetaminophen 325 1 tab PO .daily. 02/14/23 04/30/23 History mg tablet hydrocodone 5 mg-acetaminophen 325 1 tab PO DAILY PRN pain #30 tabs 03/19/23 04/30/23 Rx mg tablet zonisamide 50 mg capsule 50 mg PO DAILY 09/19/23 09/19/23 History hydrocodone 5 mg-acetaminophen 325 1 tab PO DAILY PRN pain #30 tabs 05/01/23 Rx mg tablet hydrocodone 5 mg-acetaminophen 325 1 tab PO DAILY PRN pain #30 tabs 06/07/23 Rx mg tablet hydrocodone 5 mg-acetaminophen 325 1 tab PO DAILY PRN pain #30 tabs 07/24/23 Rx mg tablet hydrocodone 5 mg-acetaminophen 325 1 tab PO DAILY PRN pain #30 tabs 08/21/23 Rx mg tablet hydrocodone 5 mg-acetaminophen 325 1 tab PO DAILY PRN pain #30 tabs 10/01/23 Rx mg tablet metaxalone 400 mg tablet 400 mg PO BID PRN muscle pain #60 10/01/23 Rx tabs naloxone 4 mg/actuation nasal 1 spray intranasal Q3M PRN opioid 10/01/23 Rx spray (Narcan) overdose #2 ea hydrocodone 5 mg-acetaminophen 325 1 tab PO QDAY PRN pain #30 tabs 11/13/23 Rx mg tablet Allergies Allergy/AdvReac Type Severity Reaction Status Date / Time adhesive Allergy Mild Blister Verified 04/30/23 09:50 latex AdvReac Rash Uncoded 02/14/23 21:39 Exam Constitutional Documenting provider has reviewed patient's vital signs: yes Common normals: no apparent distress, oriented x3, healthy appearing, alert and well nourished General appearance: cooperative HENMT Common normals: normocephalic, hearing grossly normal bilaterally and moist oral mucous membranes Head and scalp: normocephalic Eye Common normals: PERRL Pupil: PERRL Neck & C-Spine Common normals: full ROM General: normal visual inspection Cervical spine: cervical ROM normal, pain with cervical ROM, paracervical muscle tenderness and paracervical muscle spasm Other: radiculopathy following C7 and C8 RUE strength 5/5 in BUE Chest Common normals: inspection of chest normal Respiratory Common normals: normal respiratory effort, no retractions and no use of accessory muscles Extremity Common normals: normal to inspection and full ROM Neuro Common normals: oriented x3, CN's II-XII intact bilaterally, moves all extremities, no focal motor deficits, no sensory deficits noted and deep tendon reflexes 2+ bilaterally Sensorium/orientation: alert Motor exam: strength 5/5 throughout and no movement abnormalities noted Other: no numbness and tingling in BUE Psych Common normals: mental status grossly normal, thought process normal, cooperative, affect normal, speech normal and activity/motor behavior normal Speech: normal speech Thought process: normal thought process Results Additional Findings Additional findings: If on a controlled substance or opioids, I have checked an OARRS report on this patient and there are no aberrancies noted in the prescribing history.??If on a controlled substance or opioid a drug screen was completed and reviewed within the last year, and if there has not been a drug screen completed we ordered one today to monitor higher risk, state monitored pain medication use. As part of providing excellent, safe, comprehensive care, the following was completed at our patient's visit: 1. A medication reconciliation and review to ensure accurate knowledge of current/active medications, including asking our patients to inform us about any [id number]-atz-[id number] medications or herbal remedies/nutritional supplements/alternative remedies. 2. A review to specifically ensure our patients have had annual screening for screening for depression, screening for tobacco use, and screening for unhealthy alcohol use. For concerning screenings had a discussion with the patient, provided patient education, and recommended follow-up with primary care provider when appropriate. If patient noted with a risk of falling, they received education on strength, gait, and balance training to prevent future risk of falling. Assessment and Plan Assessment and Plan (1) Cervical spondylosis: (2) Myofascial pain: (3) Cervical spinal stenosis: (4) Fibromyalgia: (5) Cervical radiculopathy: (6) Chronic pain syndrome: Plan restart skelaxin 600mg HS not interested in gabapentin or lyrica due to potential side effects continue heat, ice, stretching, topical creams at home continue f/u with orthopedics for right shoulder bursitis f/u 6 months, sooner if needed
== END 2024-04-09 08:43 | disposition home or self-care (01) ==
PROVIDERS: PCP Internal Medicine; Visit Provider Nurse Practitioner
DX: M47.816 Spondylosis without myelopathy or radiculopathy, lumbar region (principal); M48.02 Spinal stenosis, cervical region; M79.7 Fibromyalgia; M54.12 Radiculopathy, cervical region; G89.4 Chronic pain syndrome
CPT/HCPCS: G0463